=== PATIENT | male | born 1950 | race Caucasian/White ===

== ENCOUNTER 2017-09-07 06:41 | Inpatient (IN) | payer OTHER, MEDICARE ==
[~2017-09-07] VITALS: Ht 180.3 cm; Wt 87.7 kg
[~2017-09-07 06:41] MED LIST: ALLO100T PO; AMLO5TAB2 PO; ASPI81TA17 PO; COZA100T PO; LEVO50TA4 PO; METO1TAB42 PO
[2017-09-07] MEDS ORDERED: ACETAMINOPHEN 1000 MG/100 ML 0 ML IV ONE (07:10)
[2017-09-07] MEDS ORDERED: METRONIDAZOLE 500 MG/100 ML ISONTONIC SOLN IV ONE (07:15)
[2017-09-07] MEDS ORDERED: DEXT 5%-NACL 0.9% 1000 ML INJ 1,000 ML IV SCH (07:15)
[2017-09-07] MEDS ORDERED: CEFAZOLIN INJ 2,000 MG in SODIUM CHLORIDE 0.9% INJ 100 ML IV SCH (07:15)
[2017-09-07] MEDS ORDERED: POVIDONE IODINE 5% (ANTISEPSIS KIT) 4 APPLICATIONS EACH NARE PRN (07:30)
[2017-09-07] MEDS ORDERED: METOPROLOL TARTRATE 25 MG TAB PO PRN (07:30)
[2017-09-07] MEDS ORDERED: SODIUM CHLORID 0.9% 500 ML IV PRN (07:30)
[2017-09-07] MEDS ORDERED: LACTATED RINGER'S 1000 ML IV PRN (07:30)
[2017-09-07] MEDS ORDERED: CHLORHEXIDINE GLUCONATE 2 % 1 PACK (2 CLOTHS) TOPICAL PRN (07:30)
[2017-09-07] MEDS ORDERED: ACETAMINOPHEN 1000 MG/100 ML 100 ML IV ONE (08:30)
[2017-09-07] MEDS ORDERED: SUGAMMADEX SODIUM 200 MG/2 ML VIAL IV PUSH ONE (08:30)
[2017-09-07] MEDS ORDERED: FAMOTIDINE 20 MG/2 ML VIAL ONE (08:30)
[2017-09-07] MEDS ORDERED: ARTIFICIAL TEARS OPTH OINT 3.5 APPLIC/3.5 GM TUBO ONE (08:57)
--- NOTE | 2017-09-07 09:47 | PD.OP ---
Operative Report Date of Surgery: Sep 07, 2017 Preoperative Diagnosis: Colon cancer Postoperative Diagnosis: Same Procedure: Cystoscopy with bilateral ureteral catheter insertion Anesthesia: LASHA Surgeon: Marco Bowen Skin Pass Operator(s): None Resident Surgeon: None Operation and Findings: 67-year-old male with findings of colon cancer who elected to undergo robotic colectomy by Dr. Mcclellan. Request made for bilateral ureteral catheter insertion. Patient was brought to the operating room and placed in the dorsal lithotomy position. He received general endotracheal tube anesthesia and was prepped and draped in usual sterile fashion. Preprocedure antibiotics were also given. Weight 22 Azeri cystoscope was inserted in the bladder rodriguez cystoscopy did not reveal any abnormalities. The left ureteral orifice was identified and 500 and catheter was inserted into the left ureteral orifice without difficulty. This was again repeated on the right side without difficulty. The Canela was inserted and the catheters were attached to the Canela. He tolerated the procedure well. Marco Bowen DO Sep 07, 2017 09:47
[2017-09-07] MEDS ORDERED: NORMOSOL R INJ 1,000 ML IV ONE (12:00)
[2017-09-07] MEDS ORDERED: VECURONIUM BROMIDE 20 MG VIAL IV ONE (12:00)
[2017-09-07] MEDS ORDERED: ONDANSETRON HCL 4 MG/2 ML VIAL IV ONE (12:00)
[2017-09-07] MEDS ORDERED: PHENYLEPH/NS 1000 MCG/10 ML SYR IV ONE (12:00)
[2017-09-07] MEDS ORDERED: PROPOFOL 200 MG/20 ML AMP IV ONE (12:00)
[2017-09-07] MEDS ORDERED: ePHEDrine/NS 25 MG/5 ML SYRINGE IV ONE (12:00)
[2017-09-07] MEDS ORDERED: STERILE WATER FOR INJECTION 20 ML VIAL IV ONE (12:00)
[2017-09-07] MEDS ORDERED: hydrALAZINE HCL 20 MG/ML VIAL IV ONE (12:00)
[2017-09-07] MEDS ORDERED: DEXAMETHASONE SOD PHOS 4 MG/ML VIAL IV ONE (12:00)
[2017-09-07] MEDS ORDERED: ROCURONIUM INJ 50 MG/5 ML SYRINGE IV PUSH ONE (12:00)
[2017-09-07] MEDS ORDERED: PHENYLEPHRINE HCL 10 MG/ML VIAL IV ONE (12:00)
[2017-09-07] MEDS ORDERED: LIDOCAINE HCL 1% PF 5 ML SYRINGE OTHER ONE (12:00)
[2017-09-07] MEDS ORDERED: ceFAZolin INJ 1,000 MG VIAL IV ONE (12:00)
[2017-09-07] MEDS ORDERED: ceFAZolin INJ 1,000 MG VIAL IV PUSH ONE (13:12)
[2017-09-07] MEDS ORDERED: VECURONIUM BROMIDE 20 MG VIAL ONE (14:07)
[2017-09-07] MEDS ORDERED: HYDROmorphone HCL PF 2 MG/ML VIAL ONE (15:27)
[2017-09-07] MEDS ORDERED: diphenhydrAMINE HCL 50 MG/ML VIAL IV PUSH PRN (16:00)
[2017-09-07] MEDS ORDERED: NALOXONE HCL 0.4 MG/ML AMP IV PUSH PRN (16:00)
[2017-09-07] MEDS: KETOROLAC TROMETHAMINE 30 MG/ML (IVP) VIAL IVP SCH ×2 (16:00→21:50)
[2017-09-07] MEDS ORDERED: MORPHINE SULFATE 30 MG/30 ML PCA IV SCH (16:00)
[2017-09-07] MEDS ORDERED: ENALAPRILAT 2.5 MG/2 ML VIAL IV PUSH PRN (16:00)
[2017-09-07] MEDS ORDERED: BENZOCAINE 6 MG/MENTHOL 10 MG LOZENGE BUCCAL PRN (16:00)
[2017-09-07] MEDS ORDERED: Post-op Orders (for Pharmacy) XX ONE (16:00)
[2017-09-07] MEDS ORDERED: POTASSIUM CHLOR 40 MEQ PREMIX 100 ML IV-CENTRAL PRN (16:00)
[2017-09-07] MEDS ORDERED: POTASSIUM CHLOR 20 MEQ PREMIX 100 ML IV PRN (16:00)
[2017-09-07] MEDS: D5-NS + KCL 20 MEQ INJ 1,000 ML IV SCH (16:00)
[2017-09-07] MEDS ORDERED: ACETAMINOPHEN 325 MG TAB PO PRN (16:00)
[2017-09-07] MEDS ORDERED: ENALAPRILAT 1.25 MG/ML VIAL IV PUSH PRN (16:00)
[2017-09-07] MEDS ORDERED: MIDAZOLAM HCL 2 MG/2 ML VIAL ONE (16:07)
[2017-09-07] MEDS ORDERED: MORPHINE SULFATE 4 MG/ML INJ ONE (16:08)
[2017-09-07] MEDS ORDERED: DO NOT ADM ANY ANTICOAGULANT DRUGS PRN (16:45)
--- NOTE | 2017-09-07 16:53 | MP ---
cc: Ivory Mcclellan MD, Kashyap DATE OF OPERATION: 09/07/2017 PREOPERATIVE DIAGNOSIS: Transverse colon polyp. POSTOPERATIVE DIAGNOSIS: Transverse colon polyp. PROCEDURE PERFORMED: Exploratory laparoscopy with robotic takedown of splenic flexure, colonoscopy with tattooing and robotic ascending colectomy. SURGEON: Ivory Mcclellan MD DEDICATED DRIVER: Adolfo ANESTHESIA: General per ET tube. DESCRIPTION OF PROCEDURE: Patient was brought to the operating room and placed in the supine position. After induction of general anesthesia, the patient was placed in Reji stirrups and all bony prominences were carefully padded. Dr. Bowen came in and performed cystoscopy and placement of bilateral ureteral catheters. Please see his operative note for details. Due to not being 100% sure where in the transverse colon the polyp was located, I elected to initially place my camera port just to the right of the umbilicus. A 10/12 port was placed at this location, under direct vision using the laparoscope. CO2 insufflation was then undertaken, and a brief abdominal survey was undertaken. There was no visible tattooing in the transverse colon. I felt I got a fairly good look, although the patient had quite a bit of fat around the colon. As he had had problems with polyps in the splenic flexure previously, I thought possibly that the polyp would be found in the splenic flexure and elected to take down the splenic flexure, so I could look for tattooing around the fatty area in that area. The remainder of the ports were then placed as follows. A 10/12 port was placed just inside the right anterior superior iliac spine, an 8 da Cassie port was placed in the left anterior axillary line, on a line with the umbilicus, a #5 port was placed in the left midclavicular line, midway between the umbilicus and the symphysis pubis, and an 8 da Cassie was placed just to the right of the midline, in the suprapubic area. The patient was hydroplaned slightly head down and to the right. The omentum was brought up and over the anterior surface of the transverse colon. The robot was then docked. The omentum was then gently dissected free from the distal transverse colon, continued this up and around the splenic flexure, opening up the lesser sac. The descending colon was then retracted medially and laterally. Peritoneal attachments of the descending colon were dissected free up and around the splenic flexure as well as posterior until eventually, we had full mobility of the mid transverse colon to the mid descending colon. At this point, I got a good look at the bowel. I was able to move the fat off the bowel and still saw no sign of the tattooing. As I felt fairly certain that the polyp was in either the mid transverse or the splenic flexure, I elected to proceed with a small incision to see if I could palpate the polyp. An 8-10 cm incision was made transversely in the left upper abdomen and using electrocautery, dissection was carried down to the fascia of anterior abdominal wall. A few fibers of the rectus abdominis muscle were then split and the posterior fascia/peritoneum was then extended the length of the skin incision. The splenic flexure and distal transverse colon were then gently prolapsed out through the incision, but I again still could not feel any palpable polyp. With this, I elected to proceed with repeating a colonoscopy. The colonoscope was called into the room, which did entail a wait. Eventually, though, it was brought into the room and the colonoscope was introduced in the anus and advanced to the cecum without difficulty. The cecum was recognized by the triradial fold, the ileocecal valve and appendiceal orifice. The polyp was then clearly visualized just midway between the hepatic flexure and the middle colic vessels. The area was tattooed just so that we could be sure of our location. Colonoscope was then withdrawn, removing as much of the air as possible. At this point, the posterior fascia and anterior fascia at the incision was closed in a running fashion using #1 PDS. A moist sponge was placed into the wound and a Tegaderm was placed over the wound. Air was insufflated into the abdomen again and the laparoscope was placed in the field, and it was confirmed that indeed the polyp was midway between the hepatic flexure and the middle colic vessels. With this, we elected to re-dock the robot over the right shoulder. The remainder of the omentum was cleared from the proximal omentum and the proximal transverse colon was then dissected up and around the hepatic flexure. The ascending colon was then dissected free from the posterior peritoneum, freeing the duodenum from the undersurface of the mesentery. A site was then chosen for division of the transverse colon just to the right of the middle colic vessels. The mesentery at this level was divided using the Harmonic scalpel and the branches of the middle colic vessel to the hepatic flexure were then divided using the Harmonic scalpel as well. At this point, the appendix was noted to be retrocecal and somewhat attached to the posterior peritoneum. This was carefully dissected free using electrocautery. At this point, I felt I had adequate mobility and the robot was then undocked. The sutured incision was then opened, and the bowel was brought out through the incision. A blue load of the CHILO 90 was placed across the colon at this level. This was fired and removed. The ileocolic vessels were then dissected free circumferentially, doubly clamped proximally and singly clamped distally, divided and ligated using 0 Vicryl ties. A site was chosen for division of the ileum 10-12 cm proximal to the ileocecal valve. The mesentery at this level was serially divided and ligated using 0 Vicryl ties and a reload of the CHILO stapler was placed across the bowel at this level and fired. The specimen was then taken to a back table where it was later opened, and the polyp was confirmed. The antimesenteric corners of the staple line were then removed and the long limb of the on each limb of the bowel. This was closed on the antimesenteric border, fired and removed, thus creating the enteroenterostomy. The resulting enterotomy was closed transversely with a TX 60 stapling device. Two simple stay sutures were placed at the distal end of the anastomosis using 3-0 Vicryl. The anastomosis was palpated and found to be widely patent. It lay in a nice orientation. It was pink and healthy. It was reduced into the peritoneal cavity. The small bowel was then examined. There were some signs where the peritoneum kind of had some abrasions on the peritoneum. Bleeding was easily controlled with electrocautery, but some Surgicel powder was also dusted across these. All bowel was then returned to the peritoneal cavity where it lay in a nice orientation. The omentum was brought down to lie over the anterior surface of the abdominal wall and the peritoneal cavity was irrigated with warm normal saline until return of clear effluent. The posterior fascia and anterior fascia were again closed in a running fashion using #1 PDS. The wound was copiously irrigated with warm normal saline and the skin was closed in a running subcuticular fashion using 3-0 Vicryl. CO2 insufflation was again resumed, and the peritoneal cavity was examined with no sign of any significant bleeding noted. The trocars at the umbilical and the right lower quadrant port, the fascia was closed using the CrossBow device and #1 PDS. These were placed, but not secured until all the air was desufflated to the extent possible. The other remaining trocars were then opened widely. The air was desufflated to the extent possible. Trocars were removed. The fascial sutures were secured. The skin at the trocar sites were closed in interrupted subcuticular fashion using 3-0 Vicryl. Sterile dressings were then applied. Both ureteral stents were removed. All sponge, needle and instrument counts were correct, and the patient was returned to the postanesthesia care unit in a stable condition. MD IVETTE Gudino/GRAY , 04:07 PM , 04:52 PM JOSSELYN
[2017-09-07] MEDS: metroNIDAZOLE 500 MG INJ 100 ML IV SCH (16:55)
[2017-09-07 17:19] LABS: AUTOMATED NEUTROPHIL # 12.3 TH/MM3 (1.8-7.7); BASOPHIL % 0.1 % (0.0-2.0); HEMATOCRIT 42.6 % (39.0-51.0); HEMOGLOBIN 14.4 GM/DL (13.0-17.0); LYMPH % 6.5 % (9.0-44.0); LYMPHOCYTE # 0.9 TH/MM3 (1.0-4.8); MEAN CELL VOLUME 89.3 FL (80.0-100.0); MEAN CORPUSCULAR HEMOGLOBIN 30.3 PG (27.0-34.0); MEAN CORPUSCULAR HGB CONC 33.9 % (32.0-36.0); MEAN PLATELET VOLUME 8.2 FL (7.0-11.0); MONO % 8.4 % (0.0-8.0); MONOCYTE # 1.2 TH/MM3 (0-0.9); PLATELET COUNT 133 TH/MM3 (150-450); RED BLOOD COUNT 4.77 MIL/MM3 (4.50-5.90); RED CELL DISTRIBUTION WIDTH 14.1 % (11.6-17.2); WHITE BLOOD COUNT 14.4 TH/MM3 (4.0-11.0)
[2017-09-07 17:41] LABS: BICARBONATE 22.2 MEQ/L (21.0-32.0); CALCIUM 7.9 MG/DL (8.5-10.1); CREATININE 1.24 MG/DL (0.60-1.30)
[2017-09-07] MEDS: PCA - TOTAL MG MORPHINE DELIVERED PER SHIFT SCH ×2 (18:03→21:50)
[2017-09-07 18:31] VITALS: BP 127/60; PULSE 83; RESP 16; TEMP 97.7; O2SAT 96
[2017-09-07 20:00] VITALS: BP 139/65; PULSE 81; PULSE 82; RESP 18; TEMP 98.2; O2SAT 96
[2017-09-08] VITALS (25 sets, daily range): BP systolic 98–191; BP diastolic 53–85; PULSE 71–105; RESP 16–22; TEMP 97.9–98.6; O2SAT 92–98
[2017-09-08] MEDS: D5-NS + KCL 20 MEQ INJ 1,000 ML IV SCH ×4 (00:08→19:00)
[2017-09-08] MEDS: metroNIDAZOLE 500 MG INJ 100 ML IV SCH ×2 (00:09→08:23)
[2017-09-08] MEDS: ONDANSETRON HCL 4 MG/2 ML VIAL IV PUSH PRN (01:06)
[2017-09-08] MEDS: KETOROLAC TROMETHAMINE 30 MG/ML (IVP) VIAL IVP SCH ×4 (03:41→22:06)
[2017-09-08] MEDS: PCA - TOTAL MG MORPHINE DELIVERED PER SHIFT SCH ×3 (05:31→22:00)
[2017-09-08 05:37] LABS: AUTOMATED NEUTROPHIL # 8.7 TH/MM3 (1.8-7.7); BASOPHIL % 0.1 % (0.0-2.0); HEMATOCRIT 40.3 % (39.0-51.0); LYMPHOCYTE # 0.5 TH/MM3 (1.0-4.8); MEAN CELL VOLUME 88.6 FL (80.0-100.0); MEAN CORPUSCULAR HEMOGLOBIN 30.7 PG (27.0-34.0); MEAN CORPUSCULAR HGB CONC 34.7 % (32.0-36.0); MEAN PLATELET VOLUME 8.2 FL (7.0-11.0); MONO % 6.3 % (0.0-8.0); MONOCYTE # 0.6 TH/MM3 (0-0.9); NEUT % 88.6 % (16.0-70.0); PLATELET COUNT 121 TH/MM3 (150-450); RED BLOOD COUNT 4.54 MIL/MM3 (4.50-5.90); WHITE BLOOD COUNT 9.8 TH/MM3 (4.0-11.0)
[2017-09-08 05:59] LABS: BICARBONATE 24.6 MEQ/L (21.0-32.0); CALCIUM 7.7 MG/DL (8.5-10.1); CREATININE 1.15 MG/DL (0.60-1.30)
[2017-09-08] MEDS: LOSARTAN 50 MG TAB PO SCH (08:21)
[2017-09-08] MEDS: amLODIPine BESYLATE 5 MG TAB PO SCH (08:21)
[2017-09-08] MEDS: METOPROLOL SUCCINATE 25 MG EXTENDED RELEASE TAB PO SCH (08:21)
[2017-09-08] MEDS: PANTOPRAZOLE SODIUM 40 MG VIAL IVP SCH (08:22)
--- NOTE | 2017-09-08 13:14 | HHI.PR ---
Subjective Remarks POD#1 s/p robotic ascending colectomy reports mid back pain Objective Vital Signs Date Time Temp Pulse Resp B/P (MAP) Pulse Ox O2 Delivery O2 Flow Rate FiO2 09/08/17 11:15 98.2 90 18 150/69 (96) 93 09/08/17 11:01 90 09/08/17 10:01 86 09/08/17 09:00 100 09/08/17 08:59 93 21 09/08/17 08:01 18 09/08/17 08:01 98.0 105 18 191/84 (119) 92 09/08/17 08:01 92 Room Air 09/08/17 08:00 102 09/08/17 07:01 99 09/08/17 05:31 18 09/08/17 04:46 98 Nasal Cannula 2.00 09/08/17 04:00 97.9 85 18 152/85 (107) 95 09/08/17 04:00 71 09/08/17 00:00 84 09/08/17 00:00 98.6 86 16 148/65 (92) 94 09/07/17 21:50 20 09/07/17 20:00 81 09/07/17 20:00 18 09/07/17 20:00 98.2 82 18 139/65 (89) 96 09/07/17 20:00 Nasal Cannula 2.00 09/07/17 18:31 97.7 83 16 127/60 (82) 96 09/07/17 17:45 88 20 128/63 (84) 95 Nasal Cannula 2 09/07/17 17:00 88 20 138/67 (90) 95 Nasal Cannula 2 09/07/17 16:45 87 20 138/67 (90) 96 Nasal Cannula 2 09/07/17 16:40 12 09/07/17 16:30 88 20 145/67 (93) 99 Nasal Cannula 2 09/07/17 16:15 86 20 131/67 (88) 97 Nasal Cannula 2 09/07/17 15:58 98.0 85 20 127/64 (85) 99 Nasal Cannula 2 I/O 09/07/17 09/07/17 09/07/17 09/08/17 09/08/17 09/08/17 07:00 15:00 23:00 07:00 15:00 23:00 Intake Total 2300 ml 2502 ml 100 ml Output Total 690 ml 700 ml Balance 1610 ml 1802 ml 100 ml Intake Oral 480 ml IV Total 2300 ml 2022 ml 100 ml Output Urine Total 640 ml 700 ml Estimated Blood Loss 50 ml # Bowel Movements 0 Result Diagram: 09/08/17 0508 09/08/17 0508 Objective Remarks Abdomen soft, nondistended, tender Dressings c/d/i Back nontender Assessment and Plan Assessment and Plan Advance diet Decrease IVF Remove chamberlain later today Mobilize Ivory Mcclellan MD Sep 08, 2017 13:14
[2017-09-08] MEDS: ACETAMINOPHEN/HYDROcodone 325 MG/5 MG TAB PO PRN ×2 (13:33→19:44)
[2017-09-08] MEDS ORDERED: ACETAMINOPHEN 325 MG TAB PO PRN (14:30)
[2017-09-08] MEDS: HEPARIN SODIUM - SQ 10,000 UNITS/ML VIAL SQ SCH (16:13)
[2017-09-08] MEDS ORDERED: SIMETHICONE 80 MG CHEWABLE TAB PO PRN (21:45)
[2017-09-08] MEDS ORDERED: DIAZEPAM 5 MG TAB PO SCH (21:45)
[2017-09-08] MEDS: METOCLOPRAMIDE HCL 10 MG/2 ML VIAL IV SCH (22:06)
[2017-09-08] MEDS: HYDROmorphone HCL PF 2 MG/ML VIAL IV PRN (22:07)
[2017-09-08] MEDS ORDERED: DIAZEPAM 10 MG TAB PO ONE (23:00)
[2017-09-09] VITALS (27 sets, daily range): BP systolic 105–146; BP diastolic 56–65; PULSE 67–118; RESP 18–20; TEMP 97.8–98.4; O2SAT 93–98
[2017-09-09 03:27] LABS: AUTOMATED NEUTROPHIL # 7.4 TH/MM3 (1.8-7.7); BASOPHIL % 0.1 % (0.0-2.0); HEMATOCRIT 42.3 % (39.0-51.0); HEMOGLOBIN 14.4 GM/DL (13.0-17.0); LYMPH % 6.7 % (9.0-44.0); LYMPHOCYTE # 0.6 TH/MM3 (1.0-4.8); MEAN CELL VOLUME 90.2 FL (80.0-100.0); MEAN CORPUSCULAR HEMOGLOBIN 30.6 PG (27.0-34.0); MEAN PLATELET VOLUME 8.1 FL (7.0-11.0); MONO % 6.7 % (0.0-8.0); MONOCYTE # 0.6 TH/MM3 (0-0.9); NEUT % 86.5 % (16.0-70.0); PLATELET COUNT 130 TH/MM3 (150-450); RED BLOOD COUNT 4.68 MIL/MM3 (4.50-5.90); RED CELL DISTRIBUTION WIDTH 14.6 % (11.6-17.2); WHITE BLOOD COUNT 8.5 TH/MM3 (4.0-11.0)
[2017-09-09] MEDS: KETOROLAC TROMETHAMINE 30 MG/ML (IVP) VIAL IVP SCH ×4 (03:41→21:31)
[2017-09-09] MEDS: ACETAMINOPHEN/HYDROcodone 325 MG/5 MG TAB PO PRN ×3 (03:41→20:29)
[2017-09-09] MEDS: HEPARIN SODIUM - SQ 10,000 UNITS/ML VIAL SQ SCH ×2 (03:41→15:00)
[2017-09-09 03:53] LABS: BICARBONATE 23.6 MEQ/L (21.0-32.0); CALCIUM 7.7 MG/DL (8.5-10.1); CREATININE 1.9 MG/DL (0.60-1.30)
[2017-09-09 04:25] LABS: BANDS 41 % (0-6); LYMPHOCYTES 7 % (9-44); METAMYELOCYTES 1 % (0-1); MONOCYTES 3 % (0-8); NEUTROPHIL # MANUAL DIFF 7.7 TH/MM3 (1.8-7.7); POLYS (SEG NEUTROPHILS) 48 % (16-70)
[2017-09-09] MEDS: PCA - TOTAL MG MORPHINE DELIVERED PER SHIFT SCH ×3 (06:00→21:32)
[2017-09-09] MEDS: METOCLOPRAMIDE HCL 10 MG/2 ML VIAL IV SCH ×3 (06:00→21:32)
[2017-09-09] MEDS: D5-NS + KCL 20 MEQ INJ 1,000 ML IV SCH (08:46)
[2017-09-09] MEDS: PANTOPRAZOLE SODIUM 40 MG VIAL IVP SCH (08:46)
[2017-09-09] MEDS: amLODIPine BESYLATE 5 MG TAB PO SCH (08:46)
[2017-09-09] MEDS: METOPROLOL SUCCINATE 25 MG EXTENDED RELEASE TAB PO SCH (08:46)
[2017-09-09] MEDS: LOSARTAN 50 MG TAB PO SCH (08:46)
--- NOTE | 2017-09-09 13:19 | HHI.PR ---
Subjective Remarks POD#2 s/p robotic ascending colectomy back pain mostly gone with Valium/Dilaudid some mild nausea with PO Objective Vital Signs Date Time Temp Pulse Resp B/P (MAP) Pulse Ox O2 Delivery O2 Flow Rate FiO2 09/09/17 12:00 82 09/09/17 11:00 97.9 85 18 108/58 (75) 95 09/09/17 11:00 80 09/09/17 11:00 95 Room Air 09/09/17 10:00 69 09/09/17 09:17 94 21 09/09/17 09:00 90 09/09/17 08:00 85 09/09/17 07:00 70 09/09/17 07:00 97.8 88 18 146/65 (92) 98 09/09/17 07:00 98 Room Air 09/09/17 06:00 67 09/09/17 05:01 78 09/09/17 04:00 77 09/09/17 03:30 97 Room Air 09/09/17 03:30 98.2 90 18 108/59 (75) 97 09/09/17 03:00 83 09/09/17 02:00 79 09/09/17 01:00 76 09/09/17 00:00 76 09/08/17 23:20 98.0 73 18 98/53 (68) 92 09/08/17 23:00 71 09/08/17 22:00 82 09/08/17 22:00 93 Room Air 09/08/17 21:00 88 09/08/17 20:45 90 Nasal Cannula 2.00 09/08/17 20:45 98.3 97 22 142/77 (98) 93 09/08/17 20:00 96 09/08/17 19:00 100 09/08/17 17:08 95 Nasal Cannula 3.00 09/08/17 16:01 88 09/08/17 15:15 98.5 91 18 144/65 (91) 95 09/08/17 15:15 18 09/08/17 15:00 101 09/08/17 14:00 90 I/O 09/08/17 09/08/17 09/08/17 09/09/17 09/09/17 09/09/17 07:00 15:00 23:00 07:00 15:00 23:00 Intake Total 2502 ml 200 ml 1128 ml 480 ml Output Total 700 ml 700 ml Balance 1802 ml 200 ml 428 ml 480 ml Intake Oral 480 ml 1128 ml 480 ml IV Total 2022 ml 200 ml Output Urine Total 700 ml 700 ml # Voids 1 # Bowel Movements 0 Result Diagram: 09/09/179 09/09/17308 Objective Remarks Abdomen soft, distended tender wounds clean Assessment and Plan Assessment and Plan Replace chamberlain Increase IVF - Creatinine slightly increased Sips clears only KUB - will likely need NGT Ivory Mcclellan MD Sep 09, 2017 13:19
[2017-09-09] MEDS ORDERED: SODIUM CHLORID 0.9% 500 ML INJ 500 ML IV ONE (13:30)
[2017-09-09] MEDS ORDERED: BENZOCAINE 20% ORAL SPR 60 ML CAN OROPHARYNG PRN (13:45)
[2017-09-09] MEDS: DEXT 5%-NACL 0.9% 1000 ML INJ 1,000 ML IV SCH ×2 (13:53→23:46)
--- NOTE | 2017-09-09 14:31 | RADRPT ---
EXAM DATE/TIME: 09/09/2017 13:36 [facility] COMPARISON: No previous studies available for comparison. INDICATIONS : Abdominal distention and NG tube placement. MEDICAL HISTORY : None. SURGICAL HISTORY : Colon resection. ENCOUNTER: Initial ACUITY: 1 day PAIN SCORE: 2/10 LOCATION: Bilateral lower abdomen. FINDINGS: Nasogastric tube is in satisfactory position. Gas pattern is unremarkable without significant ileus. Bilateral pleural effusions are noted. CONCLUSION: 1. No evidence of significant ileus or mass effect. 2. Satisfactory position of nasogastric tube. 3. Bilateral pleural effusions. Yo Ruff MD on September 09, 2017 at 14:28 Board Certified Radiologist. This report was verified electronically.
[2017-09-09] MEDS: HYDROmorphone HCL PF 2 MG/ML VIAL IV PRN (23:36)
[2017-09-10] VITALS (27 sets, daily range): BP systolic 94–108; BP diastolic 50–59; PULSE 88–123; RESP 16–32; TEMP 96.6–99; O2SAT 93–96
[2017-09-10] MEDS: KETOROLAC TROMETHAMINE 30 MG/ML (IVP) VIAL IVP SCH ×2 (03:46→09:49)
[2017-09-10] MEDS: HEPARIN SODIUM - SQ 10,000 UNITS/ML VIAL SQ SCH ×2 (03:50→15:55)
[2017-09-10 04:39] LABS: AUTOMATED NEUTROPHIL # 7.8 TH/MM3 (1.8-7.7); BASOPHIL % 0.1 % (0.0-2.0); EOSINOPHIL % 0.1 % (0.0-4.0); HEMATOCRIT 41.8 % (39.0-51.0); HEMOGLOBIN 14.2 GM/DL (13.0-17.0); LYMPH % 6.1 % (9.0-44.0); LYMPHOCYTE # 0.6 TH/MM3 (1.0-4.8); MEAN CELL VOLUME 90.1 FL (80.0-100.0); MEAN CORPUSCULAR HEMOGLOBIN 30.7 PG (27.0-34.0); MEAN PLATELET VOLUME 8.7 FL (7.0-11.0); MONO % 8.2 % (0.0-8.0); MONOCYTE # 0.8 TH/MM3 (0-0.9); NEUT % 85.5 % (16.0-70.0); PLATELET COUNT 124 TH/MM3 (150-450); RED BLOOD COUNT 4.64 MIL/MM3 (4.50-5.90); RED CELL DISTRIBUTION WIDTH 14.9 % (11.6-17.2); WHITE BLOOD COUNT 9.1 TH/MM3 (4.0-11.0)
[2017-09-10 05:11] LABS: BICARBONATE 17.6 MEQ/L (21.0-32.0); CALCIUM 7.7 MG/DL (8.5-10.1); CREATININE 3.6 MG/DL (0.60-1.30)
[2017-09-10] MEDS: PCA - TOTAL MG MORPHINE DELIVERED PER SHIFT SCH ×3 (05:30→22:00)
[2017-09-10] MEDS: METOCLOPRAMIDE HCL 10 MG/2 ML VIAL IV SCH ×3 (05:30→23:31)
[2017-09-10 05:32] LABS: BANDS 28 % (0-6); LYMPHOCYTES 6 % (9-44); METAMYELOCYTES 13 % (0-1); MONOCYTES 6 % (0-8); POLYS (SEG NEUTROPHILS) 47 % (16-70)
[2017-09-10 05:35] LABS: BURR CELLS 1+ (NORMAL)
[2017-09-10 05:36] LABS: TOXIC VACUOLATION PRESENT (NONE SEEN)
[2017-09-10] MEDS ORDERED: SODIUM CHLOR 0.9% 1000 ML INJ 1,000 ML IV ONE ×2 (06:30→19:00)
[2017-09-10] MEDS: PANTOPRAZOLE SODIUM 40 MG VIAL IVP SCH (09:48)
[2017-09-10] MEDS: LOSARTAN 50 MG TAB PO SCH (09:50)
[2017-09-10] MEDS: METOPROLOL SUCCINATE 25 MG EXTENDED RELEASE TAB PO SCH (09:50)
[2017-09-10] MEDS: amLODIPine BESYLATE 5 MG TAB PO SCH (09:50)
[2017-09-10] MEDS ORDERED: SODIUM CHLOR 0.9% 1000 ML INJ 1,000 ML IV SCH (10:00)
--- NOTE | 2017-09-10 11:15 | RADRPT ---
EXAM DATE/TIME: 09/10/2017 10:17 [facility] COMPARISON: ABDOMEN KUB ONLY, September 09, 2017, 13:36. INDICATIONS : Evaluate for Ileus. MEDICAL HISTORY : Hypertension. SURGICAL HISTORY : Colon resection. ENCOUNTER: Subsequent ACUITY: 3 days PAIN SCORE: 8/10 LOCATION: Bilateral lower quadrant FINDINGS: Supine view of the abdomen was performed. Minimal air is identified in the nondistended colon. No pne umoperitoneum. Nasogastric tube projects over the left upper abdominal quadrant. Left basilar airspac e disease and possible associated effusion. CONCLUSION: 1. Nonspecific, nonobstructive bowel gas pattern with some air identified in the nondistended colon. No pneumoperitoneum. 2. Left basilar airspace disease with possible associated small effusion. Ernesto Huston MD on September 10, 2017 at 11:12 Board Certified Radiologist. This report was verified electronically.
--- NOTE | 2017-09-10 12:49 | HHI.PR ---
Subjective Remarks POD#3 s/p robotic ascending colectomy back pain gone tired Abdomen distended but not painful Objective Vital Signs Date Time Temp Pulse Resp B/P (MAP) Pulse Ox O2 Delivery O2 Flow Rate FiO2 09/10/17 11:00 111 09/10/17 10:00 118 09/10/17 09:23 96 21 09/10/17 09:00 106 09/10/17 08:00 108 09/10/17 08:00 96 Room Air 09/10/17 08:00 97.7 112 18 99/57 (71) 96 09/10/17 07:00 104 09/10/17 06:00 94 09/10/17 05:30 18 09/10/17 05:00 100 09/10/17 04:46 16 09/10/17 04:00 97 09/10/17 04:00 18 09/10/17 03:57 93 Room Air 09/10/17 03:51 96.6 93 18 94/50 (65) 93 09/10/17 03:00 98 09/10/17 02:00 90 09/10/17 01:00 88 09/10/17 00:00 89 09/10/17 00:00 98.6 92 18 94/51 (65) 94 09/10/17 00:00 94 Room Air 09/09/17 23:00 88 09/09/17 22:00 18 09/09/17 22:00 94 09/09/17 21:32 20 09/09/17 21:00 118 09/09/17 20:46 94 21 09/09/17 20:00 96 09/09/17 20:00 93 Room Air 09/09/17 20:00 98.4 110 20 105/58 (74) 93 09/09/17 19:00 94 09/09/17 18:00 82 09/09/17 17:00 86 09/09/17 16:06 85 09/09/17 15:00 97.8 92 18 120/56 (77) 94 09/09/17 15:00 96 09/09/17 15:00 94 Room Air 09/09/17 14:00 86 09/09/17 14:00 18 09/09/17 14:00 18 09/09/17 13:00 91 I/O 4/1/09/09/17 09/09/17 09/10/17 09/10/17 09/10/17 07:00 15:00 23:00 07:00 15:00 23:00 Intake Total 480 ml 500 ml 480 ml 480 ml Output Total 500 ml 625 ml Balance 480 ml 500 ml -20 ml -145 ml Intake Oral 480 ml 480 ml 480 ml IV Total 500 ml Output Urine Total 250 ml 75 ml Gastric Drainage Total 250 ml 550 ml # Voids 1 # Bowel Movements 0 0 Result Diagram: 09/10/17 0415 09/10/17 0415 Objective Remarks Abdomen soft, very distended, mildly tender wounds clean Assessment and Plan Assessment and Plan Continued ileus KUB with scant air in colon NGT 800 cc encouraged ambulation ARF most likely secondary to dehydration Continue rehydration Possibly lasix Await Nephrology Ivory Mcclellan MD Sep 10, 2017 12:49
[2017-09-10] MEDS ORDERED: MORPHINE SULFATE 30 MG/30 ML PCA IV SCH (15:00)
[2017-09-10] MEDS ORDERED: ACETAMINOPHEN/HYDROcodone 325 MG/5 MG TAB PO PRN ×2 (15:00)
--- NOTE | 2017-09-10 16:24 | RADRPT ---
EXAM DATE/TIME: 09/10/2017 15:17 [facility] COMPARISON: No previous studies available for comparison. INDICATIONS : Increased BUN/creatinine. MEDICAL HISTORY : Myocardial infarction. Hypercholesterolemia. Thyroid disease. Tinnitus. HTN. Midly enlarged prostat e. Gout. SURGICAL HISTORY : Coronary artery stent. Cardiac cath. ENCOUNTER: Initial ACUITY: 1 day PAIN SCORE: 0/10 LOCATION: Bilateral flank MEASUREMENTS: RIGHT KIDNEY: 10.9 x 6.1 x 6.1 cm LEFT KIDNEY: 12.2 x 5.5 x 5.9 cm FINDINGS: RIGHT KIDNEY: Renal cortex is normal in thickness and echotexture. No hydronephrosis, stone, or mass. There is a dominant exophytic simple cyst off the upper pole measuring 8.6 x 7.8 cm. LEFT KIDNEY: Renal cortex is normal in thickness and echotexture. No hydronephrosis, stone, or mass. BLADDER: Nondistended. A CONCLUSION: No evidence of mass or hydronephrosis. Andrés Gardner MD on September 10, 2017 at 16:21 Board Certified Radiologist. This report was verified electronically.
--- NOTE | 2017-09-10 16:53 | PD.CONS ---
HPI Service Nephrology Consult Requested By Reason for Consult Acute Renal Failure Primary Care Physician Brian Brown M.D. History of Present Illness This is a very pleasant 67 y/o male. He came in for same day surgery for polyp removal. However there were complications in the OR, and he required a colonoscopy during the surgery. He also required bilateral ureteral catheter placement by urology. Postoperatively he was given Toradol, received 12 doses. He is now on IVF, urine output is very low and he has cola colored urine. Not in distress, we were consulted to assist with management. He is a full code. (Helena Malave) Review of Systems Constitutional: COMPLAINS OF: Fatigue, DENIES: Weight gain, Change in appetite Musculoskeletal: COMPLAINS OF: Muscle aches, Back pain (Helena Malave ) Past Family Social History Allergies: Coded Allergies: No Known Allergies (Unverified Allergy, Unknown, 09/07/17) Past Medical History HTN Gout Arthritis CAD Arthrosclerotic heart disease Past Surgical History PCI colonoscopy Reported Medications Unable to obtain Active Ordered Medications Current Medications Medications (Trade) Dose Ordered Sig/Emilee Route Start Time Stop Time Status Last Admin (Tylenol) 650 mg Q4H PRN PO 09/07/17 16:00 09/08/17 11:06 (Protonix Inj) 40 mg DAILY IVP 09/08/17 09:00 09/10/17 09:48 (Zofran Inj) 4 mg Q6H PRN IV PUSH 09/07/17 16:00 09/08/17 01:06 (Vasotec Inj) 1.25 mg Q4H PRN IV PUSH 09/07/17 16:00 (Vasotec Inj) 2.5 mg Q6H PRN IV PUSH 09/07/17 16:00 (Chloraseptic Wilmer) 1 lozenge UNSCH PRN BUCCAL 09/07/17 16:00 Potassium Chloride 100 ml @ 50 mls/hr UNSCH PRN IV 09/07/17 16:00 Potassium Chloride 100 ml @ 25 mls/hr UNSCH PRN IV-CENTRAL 09/07/17 16:00 (Heparin Inj) 5,000 units Q12H SQ 09/08/17 15:00 09/10/17 15:55 (Narcan Inj) 0.4 mg UNSCH PRN IV PUSH 09/07/17 16:00 (Benadryl Inj) 25 mg Q6H PRN IV PUSH 09/07/17 16:00 RUBBER OFF Dosage Infused (Pha) 1 Q8HR .XX 09/07/17 16:00 09/10/17 14:16 (Norvasc) 5 mg DAILY PO 09/08/17 09:00 09/10/17 09:50 (Toprol Xl) 25 mg DAILY PO 09/08/17 09:00 09/10/17 09:50 (Tylenol) 650 mg Q4H PRN PO 09/08/17 14:30 (Dilaudid Pf Inj) 0.2 mg Q3H PRN IV 09/08/17 21:45 09/09/17 23:36 (Mylicon Chew) 80 mg Q6H PRN PO 09/08/17 21:45 09/09/17 12:07 (Hurricaine 20% Oral Spr) 1 spray Q6H PRN OROPHARYNG 09/09/17 13:45 09/09/17 21:23 Sodium Chloride 1,000 ml @ 175 mls/hr Q5H43M IV 09/10/17 10:00 09/10/17 11:20 ([place] 5-325 Mg) 1 tab Q6H PRN PO 09/10/17 15:00 09/10/17 15:54 ([place] 5-325 Mg) 2 tab Q6H PRN PO 09/10/17 15:00 (Morphine 1 Mg/ ml RUBBER OFF) 30 mg UNSCH IV 09/10/17 15:00 (Reglan Inj) 10 mg Q8H IV 09/10/17 15:00 09/10/17 15:54 Family History Non contributory Social History Non smoker Full code (Helena Malave) Physical Exam Vital Signs Vital Signs Date Time Temp Pulse Resp B/P (MAP) Pulse Ox O2 Delivery O2 Flow Rate FiO2 09/10/17 16:00 115 09/10/17 15:00 120 09/10/17 15:00 98.2 120 32 108/59 (75) 95 09/10/17 15:00 95 Room Air 09/10/17 14:16 14 09/10/17 14:00 16 09/10/17 14:00 121 09/10/17 13:00 122 09/10/17 12:00 121 09/10/17 11:00 111 09/10/17 11:00 94 Room Air 09/10/17 11:00 98.0 113 16 106/58 (74) 94 09/10/17 10:00 118 09/10/17 09:23 96 21 09/10/17 09:00 106 09/10/17 08:00 108 09/10/17 08:00 96 Room Air 09/10/17 08:00 97.7 112 18 99/57 (71) 96 09/10/17 07:00 104 09/10/17 06:00 94 09/10/17 05:30 18 09/10/17 05:00 100 09/10/17 04:46 16 09/10/17 04:00 97 09/10/17 04:00 18 09/10/17 03:57 93 Room Air 09/10/17 03:51 96.6 93 18 94/50 (65) 93 09/10/17 03:00 98 09/10/17 02:00 90 09/10/17 01:00 88 09/10/17 00:00 89 09/10/17 00:00 98.6 92 18 94/51 (65) 94 09/10/17 00:00 94 Room Air 09/09/17 23:00 88 09/09/17 22:00 18 09/09/17 22:00 94 09/09/17 21:32 20 09/09/17 21:00 118 09/09/17 20:46 94 21 09/09/17 20:00 96 09/09/17 20:00 93 Room Air 09/09/17 20:00 98.4 110 20 105/58 (74) 93 09/09/17 19:00 94 09/09/17 18:00 82 09/09/17 17:00 86 Physical Exam Young appearing elderly male Awake, not in distress NG tube on left Abd round, non tender Ext no edema Canela with dark brown/cola colored urine. Laboratory Laboratory Tests Test 09/10/17 04:15 White Blood Count 9.1 Red Blood Count 4.64 Hemoglobin 14.2 Hematocrit 41.8 Mean Corpuscular Volume 90.1 Mean Corpuscular Hemoglobin 30.7 Mean Corpuscular Hemoglobin Concent 34.0 Red Cell Distribution Width 14.9 Platelet Count 124 Mean Platelet Volume 8.7 Neutrophils (%) (Auto) 85.5 Lymphocytes (%) (Auto) 6.1 Monocytes (%) (Auto) 8.2 Eosinophils (%) (Auto) 0.1 Basophils (%) (Auto) 0.1 Neutrophils # (Auto) 7.8 Lymphocytes # (Auto) 0.6 Monocytes # (Auto) 0.8 Eosinophils # (Auto) 0.0 Basophils # (Auto) 0.0 CBC Comment AUTO DIFF Differential Total Cells Counted 100 Neutrophils % (Manual) 47 Band Neutrophils % 28 Lymphocytes % 6 Monocytes % 6 Neutrophils # (Manual) 8.0 Metamyelocytes 13 Differential Comment AUTO DIFF CONFIRMED Toxic Vacuolation PRESENT Platelet Estimate LOW Platelet Morphology Comment NORMAL Oliva Cells 1+ Blood Urea Nitrogen 38 Creatinine 3.60 Random Glucose 124 Calcium Level 7.7 Sodium Level 137 Potassium Level 4.8 Chloride Level 110 Carbon Dioxide Level 17.6 Anion Gap 9 Estimat Glomerular Filtration Rate 17 (Helena Malave) Result Diagram: 09/10/17 0415 09/10/17 0415 Imaging Last Impressions Renal Ultrasound 09/10/17 0000 Signed Impressions: Service Date/Time: Sunday, September 10, 2017 15:17 - CONCLUSION: No evidence of mass or hydronephrosis. Andrés Gardner MD Abdomen X-Ray 09/10/17 0000 Signed Impressions: Service Date/Time: Sunday, September 10, 2017 10:17 - CONCLUSION: 1. Nonspecific, nonobstructive bowel gas pattern with some air identified in the nondistended colon. No pneumoperitoneum. 2. Left basilar airspace disease with possible associated small effusion. Ernesto Huston MD (Helena Malave) Assessment and Plan Problem List: (1) JOSEF (acute kidney injury) ICD Codes: N17.9 - Acute kidney failure, unspecified Plan: His renal function is normal at baseline JOSEF most likely due to NSAID use; however now he has become anuric, suffered ATN Minimal urine output Renal US is negative He has metabolic acidosis. Change IVF to 1/2 NS with 75 bicarb @ 75 cc/hr Repeat labs in AM Hold losartan, stop Toradol, stop enalapril (PRN) Obtain UA for analysis He may require dialysis in the next few days if he continues to decline. (2) S/P partial colectomy ICD Codes: Z90.49 - Acquired absence of other specified parts of digestive tract Plan: Management per surgery (Helena Malave) Assessment and Plan patient was seen and examined. Oliguric. Likely has ATN. Avoid nephrotoxic agents. Nephrotoxic agents stopped(Toradol). Also stopped Losartan. Monitor urine output. Bicarbonate drip. May need renal replacement therapy. (Nish Zhu MD) Helena Malave Sep 10, 2017 16:53 Nish Zhu MD Sep 11, 2017 10:22
[2017-09-10] MEDS ORDERED: FUROSEMIDE 20 MG/2 ML VIAL IV PUSH ONE (19:00)
[2017-09-10] MEDS: SODIUM BICARBONATE 8.4% INJ 75 MEQ in SODIUM CHLOR 0.45% 1000 ML INJ 1,000 ML IV SCH (19:07)
[2017-09-10] MEDS: HYDROmorphone HCL PF 2 MG/ML VIAL IV PRN ×2 (19:46→23:32)
[2017-09-10] MEDS ORDERED: diphenhydrAMINE HCL 50 MG/ML VIAL IV PUSH PRN (20:15)
[2017-09-10 23:43] LABS: BICARBONATE 17.6 MEQ/L (21.0-32.0); CALCIUM 7.6 MG/DL (8.5-10.1); CREATININE 5.09 MG/DL (0.60-1.30)
[2017-09-11] VITALS (21 sets, daily range): BP systolic 86–115; BP diastolic 49–76; PULSE 75–190; RESP 16–22; TEMP 98.2–99.3; O2SAT 90–100
[2017-09-11] MEDS: HEPARIN SODIUM - SQ 10,000 UNITS/ML VIAL SQ SCH ×2 (03:00→15:00)
--- NOTE | 2017-09-11 03:50 | RADRPT ---
EXAM DATE/TIME: 09/11/2017 02:33 [facility] COMPARISON: ABDOMEN KUB ONLY, September 09, 2017, 13:36. CHEST SINGLE AP, November 23, 2014, 15:39. ABDOMEN KUB ONLY, A pril 2017, 10:17. INDICATIONS : Short of breath. MEDICAL HISTORY : Hypertension. SURGICAL HISTORY : Colon resection. ENCOUNTER: Subsequent ACUITY: 1 week PAIN SCORE: 0/10 LOCATION: Bilateral chest FINDINGS: There is elevation of the diaphragms, right worse than left with pneumoperitoneum which is new or inc reased from recent prior exams. A nasogastric tube descends to the stomach. There are is basilar atel ectasis a laterally and likely small left effusion. Cardiac contours are grossly stable. CONCLUSION: Pneumoperitoneum which is new. Michele Coleman MD on September 11, 2017 at 3:39 Board Certified Radiologist. This report was verified electronically.
[2017-09-11] MEDS ORDERED: SODIUM BICARBONATE 8.4% INJ 50 MEQ/50 ML SYR IV PUSH ONE ×2 (04:45→17:30)
[2017-09-11] MEDS ORDERED: NOREPINEPHRINE 4 MG/4 ML AMP IV ONE (05:00)
[2017-09-11] MEDS ORDERED: AMIODARONE HCL 150 MG/3 ML VIAL IV ONE (05:00)
[2017-09-11] MEDS ORDERED: NALOXONE HCL 4 MG/10 ML MDV IV ONE (05:00)
[2017-09-11] MEDS ORDERED: SODIUM BICARBONATE 8.4% INJ 50 MEQ/50 ML SYR IV ONE (05:00)
[2017-09-11] MEDS ORDERED: fentaNYL CITRATE 250 MCG/5 ML AMP ONE (05:13)
[2017-09-11] MEDS ORDERED: DILTIAZEM HCL 25 MG/5 ML VIAL ONE ×2 (05:15→07:39)
[2017-09-11] MEDS ORDERED: METOPROLOL TARTRATE 5 MG/5 ML VIAL ONE (05:26)
[2017-09-11] MEDS: SODIUM BICARBONATE 8.4% INJ 75 MEQ in SODIUM CHLOR 0.45% 1000 ML INJ 1,000 ML IV SCH (05:30)
[2017-09-11] MEDS ORDERED: RESP: LEVALBUTEROL HYDROCHLORIDE 1.25 MG/3 ML NEB (SCH) NEB ONE (05:30)
[2017-09-11] MEDS ORDERED: DILTIAZEM HCL 25 MG/5 ML VIAL IV ONE ×2 (05:30)
--- NOTE | 2017-09-11 05:35 | HHI.PR ---
Subjective Remarks POD# s/p robotic ascending colectomy Condition worsened, with decreased oxygenation CXR with new or increased free air Objective Vital Signs Date Time Temp Pulse Resp B/P (MAP) Pulse Ox O2 Delivery O2 Flow Rate FiO2 09/11/17 03:38 97 Simple Mask 8.00 09/11/17 02:00 92 Nasal Cannula 6.00 09/11/17 02:00 124 09/11/17 01:00 114 09/11/17 00:30 98.5 115 20 98/57 (71) 93 09/11/17 00:30 93 Nasal Cannula 4.00 09/11/17 00:00 118 09/10/17 23:45 Nasal Cannula 4.00 09/10/17 23:00 114 09/10/17 22:00 108 09/10/17 21:00 106 09/10/17 20:00 110 09/10/17 19:30 96 Room Air 09/10/17 19:30 99.0 123 24 102/57 (72) 96 09/10/17 19:00 123 09/10/17 18:00 122 09/10/17 17:00 120 09/10/17 16:00 115 09/10/17 15:00 120 09/10/17 15:00 98.2 120 32 108/59 (75) 95 09/10/17 15:00 95 Room Air 09/10/17 14:16 14 09/10/17 14:00 16 09/10/17 14:00 121 09/10/17 13:00 122 09/10/17 12:00 121 09/10/17 11:00 111 09/10/17 11:00 94 Room Air 09/10/17 11:00 98.0 113 16 106/58 (74) 94 09/10/17 10:00 118 09/10/17 09:23 96 21 09/10/17 09:00 106 09/10/17 08:00 108 09/10/17 08:00 96 Room Air 09/10/17 08:00 97.7 112 18 99/57 (71) 96 09/10/17 07:00 104 09/10/17 06:00 94 I/O 09/10/17 09/10/17 09/10/17 09/11/17 09/11/17 09/11/17 07:00 15:00 23:00 07:00 15:00 23:00 Intake Total 480 ml 480 ml Output Total 625 ml 800 ml Balance -145 ml -320 ml Intake Oral 480 ml 480 ml Output Urine Total 75 ml 100 ml Gastric Drainage Total 550 ml 700 ml # Bowel Movements 0 Result Diagram: 09/10/17 0415 09/10/17 2250 Objective Remarks Appears slightly short of breath Abdomen soft, very distended, mildly tender wounds clean Assessment and Plan Assessment and Plan To OR for exploration Discussed with patient and suspicion of leak, either at anastomosis or otherwise Exploration with possible bowel resection, and/or stoma Ivory Mcclellan MD Sep 11, 2017 05:35
--- NOTE | 2017-09-11 05:38 | PD.CONS ---
[facility] Service Critical Care Medicine Consult Requested By Primary Care Physician Brian Brown M.D. History of Present Illness POD#3 s/p 67-year-old very pleasant gentleman initially admitted for same day surgery for polyp removal. Due to some complications in the OR he required a colonoscopy during the surgery and now he is postop day 4 status post robotic ascending colectomy. He also required bilateral ureteral catheter placement by urology. Postoperatively he was given Toradol, received 12 doses. He is now on IVF, urine output is very low and he has cola colored urine. He continues to be profoundly acidotic and the x-ray today shows pneumoperitoneum that is new compared to previous images. The patient's surgeon Dr. Mcclellan is at the bedside and she is taking him immediately to operating room for a revision. The patient during my exam is not in distress. Review of Systems Constitutional: DENIES: Diaphoretic episodes, Fatigue, Fever, Weight gain, Weight loss, Chills, Dizziness, Change in appetite, Night Sweats Endocrine: DENIES: Heat/cold intolerance, Polydipsia, Polyuria, Polyphagia Eyes: DENIES: Blurred vision, Diplopia, Eye inflammation, Eye pain, Vision loss , Photosensitivity, Double Vision Ears, nose, mouth, throat: DENIES: Tinnitus, Hearing loss, Vertigo, Nasal discharge, Oral lesions, Throat pain, Hoarseness, Ear Pain, Running Nose, Epistaxis, Sinus Pain, Toothache, Odynophagia Respiratory: DENIES: Apneas, Cough, Snoring, Wheezing, Hemoptysis, Sputum production, Shortness of breath Cardiovascular: DENIES: Chest pain, Palpitations, Syncope, Dyspnea on Exertion , PND, Lower Extremity Edema, Orthopnea, Claudication Gastrointestinal: COMPLAINS OF: Abdominal pain, Constipation, Nausea, DENIES: Black stools, Bloody stools, Diarrhea, Vomiting, Difficulty Swallowing, Anorexia Genitourinary: DENIES: Sexual dysfunction, Urinary frequency, Urinary incontinence, Urgency, Hematuria, Dysuria, Nocturia, Penile Discharge, Testicular Pain, Testicular Swelling Musculoskeletal: DENIES: Joint pain, Muscle aches, Stiffness, Joint Swelling, Back pain, Neck pain Integumentary: DENIES: Abnormal pigmentation, Nail changes, Pruritus, Rash Hematologic/lymphatic: DENIES: Bruising, Lymphadenopathy Immunologic/allergic: DENIES: Eczema, Urticaria Neurologic: DENIES: Abnormal gait, Headache, Localized weakness, Paresthesias, Seizures, Speech Problems, Tremor, Poor Balance Psychiatric: DENIES: Anxiety, Confusion, Mood changes, Depression, Hallucinations, Agitation, Suicidal Ideation, Homicidal Ideation, Delusions Past Family Social History Allergies: Coded Allergies: No Known Allergies (Unverified Allergy, Unknown, 09/07/17) Past Medical History HTN Gout Arthritis CAD Arthrosclerotic heart disease Past Surgical History PCI colonoscopy Reported Medications Reported Meds & Active Scripts Active Reported Metoprolol Succinate ER 24 HR (Metoprolol Succinate) 25 Mg Tab 25 Mg PO DAILY Cozaar (Losartan Potassium) 100 Mg Tab 100 Mg PO DAILY Levothyroxine (Levothyroxine Sodium) 50 Mcg Tab 50 Mcg PO DAILY Aspirin DR (Aspirin) 81 Mg Tabdr 81 Mg PO DAILY Amlodipine (Amlodipine Besylate) 5 Mg Tab 5 Mg PO DAILY Allopurinol 100 Mg Tab 100 Mg PO DAILY Active Ordered Medications Current Medications Medications (Trade) Dose Ordered Sig/Emilee Route PRN Reason Start Time Stop Time Status Last Admin Dose Admin Acetaminophen (Tylenol) 650 mg Q4H PRN PO Temperature > 101F 09/07/17 16:00 09/08/17 11:06 Pantoprazole Sodium (Protonix Inj) 40 mg DAILY IVP 09/08/17 09:00 09/10/17 09:48 Ondansetron HCl (Zofran Inj) 4 mg Q6H PRN IV PUSH NAUSEA 09/07/17 16:00 09/08/17 01:06 Enalaprilat (Vasotec Inj) 1.25 mg Q4H PRN IV PUSH SYS BP GREATER THAN 160 MMHG 09/07/17 16:00 Future Hold Enalaprilat (Vasotec Inj) 2.5 mg Q6H PRN IV PUSH SYS BP GREATER THAN 160 MMHG 09/07/17 16:00 Future Hold Benzocaine/Menthol (Chloraseptic Wilmer) 1 lozenge UNSCH PRN BUCCAL SORE THROAT 09/07/17 16:00 Potassium Chloride 100 ml @ 50 mls/hr UNSCH PRN IV POTASSIUM 3 TO 3.5 09/07/17 16:00 Potassium Chloride 100 ml @ 25 mls/hr UNSCH PRN IV-CENTRAL POTASSIUM LESS THAN 3 09/07/17 16:00 Heparin Sodium (Porcine) (Heparin Inj) 5,000 units Q12H SQ 09/08/17 15:00 09/10/17 15:55 Naloxone HCl (Narcan Inj) 0.4 mg UNSCH PRN IV PUSH RESPIRATORY RATE LESS THAN 10 09/07/17 16:00 Diphenhydramine HCl (Benadryl Inj) 25 mg Q6H PRN IV PUSH ITCHING 09/07/17 16:00 SUBSTATION MANAGER Dosage Infused (Pha) 1 Q8HR .XX 09/07/17 16:00 09/10/17 14:16 Amlodipine Besylate (Norvasc) 5 mg DAILY PO 09/08/17 09:00 09/10/17 09:50 Metoprolol Succinate (Toprol Xl) 25 mg DAILY PO 09/08/17 09:00 09/10/17 09:50 Acetaminophen (Tylenol) 650 mg Q4H PRN PO HEADACHE 09/08/17 14:30 Hydromorphone HCl (Dilaudid Pf Inj) 0.2 mg Q3H PRN IV PAIN 1-10 09/08/17 21:45 09/10/17 23:32 Simethicone (Mylicon Chew) 80 mg Q6H PRN PO GAS RETENTION 09/08/17 21:45 09/09/17 12:07 Benzocaine (Hurricaine 20% Oral Spr) 1 spray Q6H PRN OROPHARYNG throat pain 09/09/17 13:45 09/09/17 21:23 Acetaminophen/ Hydrocodone Bitart ([place] 5-325 Mg) 1 tab Q6H PRN PO PAIN SCALE 1 TO 4 09/10/17 15:00 09/10/17 15:54 Acetaminophen/ Hydrocodone Bitart ([place] 5-325 Mg) 2 tab Q6H PRN PO PAIN SCALE 5 TO 10 09/10/17 15:00 09/10/17 22:13 Sodium Bicarbonate 75 meq/Sodium Chloride 1,075 ml @ 125 mls/hr Q8H36M IV 09/10/17 18:00 09/10/17 19:07 Diphenhydramine HCl (Benadryl Inj) 25 mg HS PRN IV PUSH SLEEP 09/10/17 20:15 Family History No family history significant of colorectal cancer Social History Denies tobacco, alcohol, or illicit drug abuse Physical Exam Vital Signs Vital Signs Date Time Temp Pulse Resp B/P (MAP) Pulse Ox O2 Delivery O2 Flow Rate FiO2 09/11/17 03:38 97 Simple Mask 8.00 09/11/17 02:00 92 Nasal Cannula 6.00 09/11/17 02:00 124 09/11/17 01:00 114 09/11/17 00:30 98.5 115 20 98/57 (71) 93 09/11/17 00:30 93 Nasal Cannula 4.00 09/11/17 00:00 118 09/10/17 23:45 Nasal Cannula 4.00 09/10/17 23:00 114 09/10/17 22:00 108 09/10/17 21:00 106 09/10/17 20:00 110 09/10/17 19:30 96 Room Air 09/10/17 19:30 99.0 123 24 102/57 (72) 96 09/10/17 19:00 123 09/10/17 18:00 122 09/10/17 17:00 120 09/10/17 16:00 115 09/10/17 15:00 120 09/10/17 15:00 98.2 120 32 108/59 (75) 95 09/10/17 15:00 95 Room Air 09/10/17 14:16 14 09/10/17 14:00 16 09/10/17 14:00 121 09/10/17 13:00 122 09/10/17 12:00 121 09/10/17 11:00 111 09/10/17 11:00 94 Room Air 09/10/17 11:00 98.0 113 16 106/58 (74) 94 09/10/17 10:00 118 09/10/17 09:23 96 21 09/10/17 09:00 106 09/10/17 08:00 108 09/10/17 08:00 96 Room Air 09/10/17 08:00 97.7 112 18 99/57 (71) 96 09/10/17 07:00 104 09/10/17 06:00 94 09/10/17 05:30 18 Physical Exam GENERAL: Well-nourished, well-developed patient. SKIN: Warm and dry. HEAD: Normocephalic. EYES: No scleral icterus. No injection or drainage. NECK: Supple, trachea midline. No JVD or lymphadenopathy. CARDIOVASCULAR: Regular rate and rhythm without murmurs, gallops, or rubs. RESPIRATORY: Breath sounds equal bilaterally. No accessory muscle use. GASTROINTESTINAL: Abdomen soft, non-tender, very distended. MUSCULOSKELETAL: No cyanosis, or edema. BACK: Nontender without obvious deformity. NEURO EXAM: GCS: 15 Mental Status: The patient is alert and oriented to person, place, and time with normal speech. Laboratory Laboratory Tests Test 09/10/17 22:50 09/11/17 02:24 Blood Urea Nitrogen 51 Creatinine 5.09 Random Glucose 105 Calcium Level 7.6 Sodium Level 138 Potassium Level 4.9 Chloride Level 109 Carbon Dioxide Level 17.6 Anion Gap 11 Estimat Glomerular Filtration Rate 11 Blood Gas Puncture Site RT RADIAL Blood Gas Patient Temperature 98.6 Blood Gas HCO3 15 Blood Gas Base Excess -9.9 Blood Gas Oxygen Saturation 90 Arterial Blood pH 7.33 Arterial Blood Partial Pressure CO2 29 Arterial Blood Partial Pressure O2 69 Arterial Blood Oxygen Content 16.7 Arterial Blood Carboxyhemoglobin 1.3 Arterial Blood Methemoglobin 1.4 Blood Gas Hemoglobin 13.2 Oxygen Delivery Device NASAL CANNULA Blood Gas Liter Flow 4 Result Diagram: 09/10/17 0415 09/10/17 2250 Imaging Last 24 hours Impressions Chest X-Ray 09/11/17 0000 Signed Impressions: Service Date/Time: Monday, September 11, 2017 02:33 - CONCLUSION: Pneumoperitoneum which is new. Michele Coleman MD Assessment and Plan Assessment and Plan Pneumoperitoneum -Status post ascending colectomy -Start OR for revision to rule out a leak -Flagyl, cefazolin changed to Zosyn -Management per Dr. Mcclellan general surgery Metabolic acidosis -Due to above -Also acute kidney injury -Sodium bicarbonate replacement -IV fluid resuscitation Acute kidney failure -Recent dehydration -IV fluid resuscitation -Sodium bicarbonate drip -I's and O -Management per nephrology Hypertension -Metoprolol -Norvasc DVT GI prophylaxis -Luis M's and SCDs -Subcu heparin -Pepcid Critical Care: The total critical care time was 35 minutes. Time to perform other separately billable procedures was not included in the critical care time. Vishnu Whitehead MD Sep 11, 2017 5:38 am
[2017-09-11] MEDS ORDERED: METOPROLOL TARTRATE 5 MG/5 ML VIAL IV ONE ×2 (05:45)
[2017-09-11] MEDS ORDERED: metroNIDAZOLE 500 MG INJ 100 ML IV ONE (05:50)
[2017-09-11] MEDS ORDERED: ETOMIDATE 20 MG/10 ML VIAL ONE (06:00)
[2017-09-11] MEDS ORDERED: NOREPINEPHRINE 4 MG/4 ML AMP ONE (06:00)
[2017-09-11] MEDS: PCA - TOTAL MG MORPHINE DELIVERED PER SHIFT SCH (06:00)
[2017-09-11] MEDS ORDERED: KETAMINE HCL 500 MG/10 ML VIAL ONE (06:20)
[2017-09-11] MEDS ORDERED: MIDAZOLAM HCL 2 MG/2 ML VIAL ONE (07:10)
[2017-09-11] MEDS ORDERED: ALBUMIN 5% INJ 250 ML IV ONE (07:25)
[2017-09-11] MEDS ORDERED: DEXMEDETOMIDINE HCL 200 MCG/2 ML VIAL ONE (07:38)
[2017-09-11] MEDS ORDERED: SODIUM CHLORIDE 0.9% INJ 50 ML ONE (07:38)
[2017-09-11] MEDS ORDERED: SODIUM BICARBONATE 8.4% INJ 50 MEQ/50 ML SYR ONE (07:40)
[2017-09-11] MEDS ORDERED: DO NOT ADM ANY ANTICOAGULANT DRUGS PRN (08:14)
[2017-09-11 08:36] LABS: BASOPHIL % 0.1 % (0.0-2.0); EOSINOPHIL % 0.9 % (0.0-4.0); HEMATOCRIT 34.8 % (39.0-51.0); HEMOGLOBIN 11.8 GM/DL (13.0-17.0); LYMPH % 10.7 % (9.0-44.0); LYMPHOCYTE # 0.4 TH/MM3 (1.0-4.8); MEAN CELL VOLUME 89.9 FL (80.0-100.0); MEAN CORPUSCULAR HEMOGLOBIN 30.4 PG (27.0-34.0); MEAN CORPUSCULAR HGB CONC 33.8 % (32.0-36.0); MEAN PLATELET VOLUME 8.1 FL (7.0-11.0); MONO % 6.8 % (0.0-8.0); MONOCYTE # 0.3 TH/MM3 (0-0.9); NEUT % 81.5 % (16.0-70.0); PLATELET COUNT 136 TH/MM3 (150-450); RED BLOOD COUNT 3.87 MIL/MM3 (4.50-5.90); RED CELL DISTRIBUTION WIDTH 14.9 % (11.6-17.2); WHITE BLOOD COUNT 3.7 TH/MM3 (4.0-11.0)
[2017-09-11] MEDS ORDERED: *morphine SULFATE 4 MG/ML PERIprocedure ONLY ONE (08:37)
--- NOTE | 2017-09-11 08:54 | RADRPT ---
EXAM DATE/TIME: 09/11/2017 08:17 [facility] COMPARISON: CHEST SINGLE AP, September 11, 2017, 2:33. INDICATIONS : Central line placement in or. MEDICAL HISTORY : Myocardial infarction. Hypercholesterolemia. Thyroid disease. Tinnitus. HTN. Midly enlarged prostate. Gout. SURGICAL HISTORY : Coronary artery stent. Cardiac cath. ENCOUNTER: Subsequent ACUITY: 3 days PAIN SCORE: Non-responsive. LOCATION: Bilateral chest FINDINGS: The cardiac silhouette is enlarged in transverse diameter. Support lines and tubes are in satisfactor y position. A right sided internal jugular vein catheter is in place without pneumothorax with its ti p in the superior vena cava. There is left lower lobe atelectasis versus pneumonia. CONCLUSION: Uncomplicated line placement. No evidence of pneumothorax. Lobo Elliott MD on September 11, 2017 at 8:51 Board Certified Radiologist. This report was verified electronically.
--- NOTE | 2017-09-11 08:54 | MP ---
cc: Ivory Mcclellan MD DATE OF OPERATION: 09/11/2017 PREOPERATIVE DIAGNOSIS: Free air postop presumed perforated viscus. POSTOPERATIVE DIAGNOSIS: Small bowel enterotomy with leakage of small bowel contents. OPERATIVE INDICATIONS: The patient is a 67-year-old male who is 4 days out from a robotic-assisted ascending colectomy. He began having distention about 2 days ago. An NG tube decompression did not really make a significant difference, then he acutely got worse today, although KUB has not shown any free air on the morning of the 2nd by late evening and on the 3rd chest CT did show evidence of new free air. OPERATIVE FINDINGS: At approximately the mid-ileum, there was an area just next to the mesentery with a defect in the small bowel. There was large amounts of small bowel contents throughout the peritoneal cavity with some inflammatory changes and some peel on the bowel as well. The anastomosis was visualized and was patent and showed no sign of any leakage as did the remainder of the colon and the remainder of the small bowel. OPERATIVE COURSE: The patient was brought to the operating room, placed in supine position. After induction of general anesthesia and resuscitation by Anesthesia, the dressings were removed, as were the Steri-Strips. Again, the anterior abdominal wall was then prepped and draped in the usual sterile fashion. After an appropriate time-out, a vertical midline incision was made detouring to the left of the umbilicus using electrocautery. Dissection was carried down to the fascia of the anterior abdominal wall. This was opened and immediately had expression of large amounts of what appeared to be small bowel contents. The wound was then lengthened from below the xiphoid to just above the umbilicus and the fluid was suctioned out of the peritoneal cavity. 7 liters of irrigation were then irrigated through the peritoneal cavity being sure to get in all the various areas. Beginning at the ligament of Treitz, the small bowel was run and initially we did not appreciate the small defect in the bowel on our initial run through, so we then continued to the anastomosis, which appeared inflammatory, but otherwise no sign of any leakage noted. There was quite a bit of air in the colon interestingly enough. We then followed the colon up and around the splenic flexure and down the descending colon and into the sigmoid still seeing no sign of any definitive leak or defect. At this point, we examined both the anterior and posterior wiseman of the stomach with no sign of any leakage or really much succuss down in that area. We ran the small bowel again in a retrograde fashion and at that point, we were able to visualize the defect as noted previously. With this finding and after discussion, I felt that the most appropriate thing was a diverting stoma. The mesentery at the area was gently opened and a site was chosen for the stoma being where it would come up as much as possible to his fairly portly abdominal wall. A 2 cm ellipse of skin was removed sharply using electrocautery. Dissection was carried down to the fascia of the anterior abdominal wall. The anterior fascia was then divided in the length of the incision and the fibers of the rectus abdominis muscle were then gently spread. The posterior fascia was then opened as well. Unfortunately, however, due to the swelling and the fairly fatty tissue, it was difficult and I was not able to bring a loop ileostomy out, so I elected to proceed with an end ileostomy. The distal bowel was then stapled off using the CHILO stapler, but it was left attached. I did not open the mesentery too much so that it would be easy to retrieve. The proximal stapled end of the bowel was then gently brought up and out through the incision. The area with the tear was then resected removing possibly 2 cm of bowel. The bowel came up, but was not quite as a loose as I would like, but it did come up so that it would make a reasonable stoma. JPs were placed from the right side into the right gutter and in the left lower quadrant into the left gutter. The posterior fascia was then closed in a running fashion using looped #1 PDS. The wound was copiously irrigated with warm normal saline. The skin was closed using saima. The JPs were secured using 3-0 nylon and the stoma was then matured in a typical Martina fashion using 3-0 Vicryl. A stoma appliance was then applied. A sterile dressing was then applied and the BRANDEN bulbs were attached. All sponge, needle and instrument counts were correct and the patient was returned to the Postanesthesia Care Unit in a stable, but guarded condition. MD IVETTE Gudino/MESSI , 08:16 AM , 08:54 AM
[2017-09-11] MEDS: PANTOPRAZOLE SODIUM 40 MG VIAL IVP SCH (09:00)
[2017-09-11] MEDS ORDERED: SODIUM CHLOR 0.9% 1000 ML INJ 1,000 ML OTHER PRN (09:25)
[2017-09-11] MEDS ORDERED: SODIUM CHLOR 0.9% 1000 ML INJ 1,000 ML IV PRN (09:25)
[2017-09-11 09:28] LABS: BANDS 67 % (0-6); LYMPHOCYTES 7 % (9-44); METAMYELOCYTES 6 % (0-1); MONOCYTES 6 % (0-8); NEUTROPHIL # MANUAL DIFF 3.2 TH/MM3 (1.8-7.7); POLYS (SEG NEUTROPHILS) 14 % (16-70)
[2017-09-11 09:29] LABS: TOXIC GRANULATION 1+ (NORMAL)
[2017-09-11] MEDS ORDERED: NITROGLYCERIN 0.4 MG SL 25 TABS/BTL SL PRN (09:30)
[2017-09-11] MEDS ORDERED: cloNIDine HCL 0.1 MG TAB PO PRN (09:30)
[2017-09-11] MEDS ORDERED: HEPARIN SODIUM - IV 10,000 UNITS/10 ML VIAL IV FLUSH PRN (09:30)
[2017-09-11] MEDS ORDERED: ONDANSETRON HCL 4 MG/2 ML VIAL IV PUSH PRN (09:30)
[2017-09-11] MEDS ORDERED: MANNITOL 12.5 GM/50 ML VIAL IV PRN (09:30)
[2017-09-11] MEDS ORDERED: GELATIN 12 MM/7 MM FOAM TOP PRN (09:30)
[2017-09-11 09:31] LABS: TOXIC VACUOLATION PRESENT (NONE SEEN)
--- NOTE | 2017-09-11 09:31 | HHI.NPPN ---
Subjective Renal Failure: Acute Interval History He developed pneumoperitoneum, was taken to the OR emergently. Is seen in PACU. He is intubated, tachycardic, hypotensive on pressors. Oliguric, creatinine slightly better this AM. To be transferred to [facility]. (Helena Malave) Review of Systems General General Remarks unable to evaluate (Helena Malave) Objective Data Data Vital Signs Date Time Temp Pulse Resp B/P (MAP) Pulse Ox O2 Delivery O2 Flow Rate FiO2 09/11/17 08:40 100 90 09/11/17 08:03 97 100 09/11/17 05:08 190 09/11/17 04:00 110 09/11/17 04:00 98.2 111 20 99/54 (69) 98 09/11/17 03:38 97 Simple Mask 8.00 09/11/17 03:30 97 Simple Mask 8.00 09/11/17 02:30 92 Nasal Cannula 6.00 09/11/17 02:00 92 Nasal Cannula 6.00 09/11/17 02:00 124 09/11/17 01:00 114 09/11/17 00:30 98.5 115 20 98/57 (71) 93 09/11/17 00:30 93 Nasal Cannula 2.00 09/11/17 00:00 118 09/10/17 23:45 Nasal Cannula 4.00 09/10/17 23:00 114 09/10/17 22:00 108 09/10/17 21:00 106 09/10/17 20:00 110 09/10/17 19:30 96 Room Air 09/10/17 19:30 99.0 123 24 102/57 (72) 96 09/10/17 19:00 123 09/10/17 18:00 122 09/10/17 17:00 120 09/10/17 16:00 115 09/10/17 15:00 120 09/10/17 15:00 98.2 120 32 108/59 (75) 95 09/10/17 15:00 95 Room Air 09/10/17 14:16 14 09/10/17 14:00 16 09/10/17 14:00 121 09/10/17 13:00 122 09/10/17 12:00 121 09/10/17 11:00 111 09/10/17 11:00 94 Room Air 09/10/17 11:00 98.0 113 16 106/58 (74) 94 09/10/17 10:00 118 09/10/17 09:23 96 21 (Helena Malave) -: 09/11/17 0815 09/10/17 2250 Imaging Last 72 hours Impressions Chest X-Ray 09/11/17 0000 Signed Impressions: Service Date/Time: Monday, September 11, 2017 08:17 - CONCLUSION: Uncomplicated line placement. No evidence of pneumothorax. Lobo Elliott MD Chest X-Ray 09/11/17 0000 Signed Impressions: Service Date/Time: Monday, September 11, 2017 02:33 - CONCLUSION: Pneumoperitoneum which is new. Michele Coleman MD Renal Ultrasound 09/10/17 0000 Signed Impressions: Service Date/Time: Sunday, September 10, 2017 15:17 - CONCLUSION: No evidence of mass or hydronephrosis. Andrés Gardner MD Abdomen X-Ray 09/10/17 0000 Signed Impressions: Service Date/Time: Sunday, September 10, 2017 10:17 - CONCLUSION: 1. Nonspecific, nonobstructive bowel gas pattern with some air identified in the nondistended colon. No pneumoperitoneum. 2. Left basilar airspace disease with possible associated small effusion. Ernesto Huston MD Abdomen X-Ray 09/09/17 1332 Signed Impressions: Service Date/Time: Saturday, September 09, 2017 13:36 - CONCLUSION: 1. No evidence of significant ileus or mass effect. 2. Satisfactory position of nasogastric tube. 3. Bilateral pleural effusions. Yo Ruff MD Tubes & Lines: [place]ela Tubes & Lines Comment TLC right IJ (Helena Malave) Physical Exam General Appearance: Well Developed, Comfortable Appearance Remarks intubated, agitated (Helena Malave) Throat Throat Exam: Oral Mucosa [place] & Moist (Helena Malave) Pulmonary Resp Exam: Breath Sounds Equal, No Distress Resp Remarks vented, shallow (Helena Malave) Gastrointestinal/Abdomen GI Exam: Bowel Sounds Hypoactive GI Remarks abd binder in place, BRANDEN drain in place (Helena Malave) Musculoskeletal MS Exam: Joints Intact, Good Strength, Unable to Ambulate (Helena Malave) Integumentary Skin Exam: Warm, Dry, Intact Skin Remarks midabdominal incision (Helena Malave) Neurologic Neuro Exam: Moving All Extremities, Sedated Neuro Remarks sedated but agitated (Helena Malave) Psychiatric Psych Exam: Appropriate Responses (Helena Malave) Assessment/Plan Assessment Summary: JOSEF/Acute Renal Failure, Acute Tubular Necrosis, Hypotension Electrolyte Assessment: Metabolic Acidosis Problem List: (1) JOSEF (acute kidney injury) ICD Codes: N17.9 - Acute kidney failure, unspecified Plan: His renal function is normal at baseline JOSEF most likely due to NSAID use; however now he has become anuric, suffered ATN Renal function had declined overnight but is slightly better this AM. Remains oliguric Now on pressors. Reduce bicarb gtt to 50 cc/hr (was 150 cc/hr due to hypotension) Most likely will needs dialysis today, will need vascath placed Obtain daily labs Avoid nephrotoxic agents. Awaiting UA for analysis (2) S/P partial colectomy ICD Codes: Z90.49 - Acquired absence of other specified parts of digestive tract Plan: He has developed small bowel perforation, s/p emergent ex lap with I&D Management per surgery He is hypotensive, septic To be transferred to [facility] Prognosis is guarded. (Helena Malave) Plan patient was seen and examined. Events noted. May need dialysis. Agree with above assessment and plan. (Nish Zhu MD) Helena Malave Sep 11, 2017 09:30 Nish Zhu MD Sep 11, 2017 10:27
[2017-09-11 09:39] LABS: BICARBONATE 20.2 MEQ/L (21.0-32.0); CALCIUM 6.6 MG/DL (8.5-10.1); CREATININE 4.27 MG/DL (0.60-1.30)
[2017-09-11 09:56] LABS: CALCIUM-PROTEIN CORRECTED 8.3 MG/DL (8.5-10.1)
[2017-09-11] MEDS ORDERED: DIGOXIN 0.5 MG/2 ML VIAL ONE (10:52)
[2017-09-11] MEDS ORDERED: AMIODARONE INJ 150 MG in DEXTROSE 5% IN WATER 100ML INJ 100 ML IV ONE ×2 (11:17)
--- NOTE | 2017-09-11 11:17 | PD.PROCEDR ---
Central Line Procedure REASON FOR PROCEDURE Central venous access PROCEDURE PERFORMED Central line placement: US guided LIJ VasCath CONSENT Informed consent for procedure was obtained. ANESTHESIA Local injection of 1% Lidocaine DESCRIPTION OF THE PROCEDURE The patient was placed in supine, mild Trendelenburg position. The area was exposed and cleansed with ChloraPrep, times two. Large sterile drape was used to cover the patient, with the site exposed, under sterile conditions including cap, face mask, sterile gown, and sterile gloves. On single attempt, the introducer needle was inserted with negative pressure in syringe and venous flash was obtained. The guide wire was then advanced without any restriction and the needle was removed. The dilator was used without any complications. Using Seldinger technique the 20 CM 14F double lumen catheter was advanced over the guide wire to a depth of 18 centimeters. The guide wire was removed. All ports were aspirated with dark venous blood return and flushed easily with sterile saline. All ports were capped. Antibiotic disc was placed around central line at puncture site. The central line was secured to the skin with two interrupted 2.0 silk sutures. The area was bandaged with sterile see- through central line bandage. RADIOLOGICAL DATA Ultrasound guidance was used to locate LIJ. Doppler/color flow was used to confirm venous flow. COMPLICATIONS: No apparent complications ESTIMATED BLOOD LOSS: Less than 1 cc. Eileen Bautista MD Sep 11, 2017 11:17
[2017-09-11] MEDS ORDERED: AMIODARONE INJ 450 MG in DEXTROSE 5% IN WATE(EXCEL) INJ 241 ML IV PRN ×2 (11:27)
[2017-09-11] MEDS: PROPOFOL 1000 MG/100 ML INJ 100 ML IV PRN ×3 (11:30→22:11)
--- NOTE | 2017-09-11 11:30 | RADRPT ---
EXAM DATE/TIME: 09/11/2017 11:10 [place] COMPARISON: CHEST SINGLE AP, September 11, 2017, 8:17. INDICATIONS : Central line placement. MEDICAL HISTORY : Myocardial infarction. Hypercholesterolemia. Thyroid disease. Tinnitus. HTN. SURGICAL HISTORY : Coronary artery stent. Cardiac cath. ENCOUNTER: Subsequent ACUITY: 1 day PAIN SCORE: Non-responsive. LOCATION: Bilateral chest FINDINGS: Mild left base consolidation and small effusion unchanged. I don't see a pneumothorax. There is a new left internal jugular central venous catheter with tip in the superior vena cava. The right IJ line with tip in the superior vena cava is unchanged. Endotracheal tube tip is about 5 cm above the michelle. Nasogastric tube again seen, courses into the s tomach. Old fracture of the distal shaft of the left clavicle again seen. CONCLUSION: 1. There is a new left IJ line with tip in the superior vena cava. No pneumothorax or other acute com plication. 2. Other lines and tubes unchanged, as above. 3. Mild consolidation and small effusion at the left lung base without significant change. Michele Oakley MD on September 11, 2017 at 11:26 Board Certified Radiologist. This report was verified electronically.
[2017-09-11] MEDS: VASOPRESSIN 40 U/D5W 100 ML Titrate IV PRN ×2 (11:57)
[2017-09-11] MEDS ORDERED: SUCCINYLCHOLINE CHLORIDE 200 MG/10 ML VIAL IV ONE (12:00)
[2017-09-11] MEDS ORDERED: PHENYLEPH/NS 1000 MCG/10 ML SYR IV ONE (12:00)
[2017-09-11] MEDS ORDERED: PROPOFOL 200 MG/20 ML AMP IV ONE (12:00)
[2017-09-11] MEDS ORDERED: LACTATED RINGER S IV ONE (12:00)
[2017-09-11] MEDS ORDERED: ceFAZolin INJ 1,000 MG VIAL IV ONE (12:00)
[2017-09-11] MEDS ORDERED: SODIUM CHLOR 0.9% 250 ML INJ 250 ML IV ONE (12:00)
[2017-09-11] MEDS ORDERED: ROCURONIUM INJ 50 MG/5 ML SYRINGE IV PUSH ONE (12:00)
[2017-09-11] MEDS ORDERED: LIDOCAINE HCL 1% PF 5 ML SYRINGE OTHER ONE (12:00)
[2017-09-11] MEDS ORDERED: NEOSTIGMINE 5 MG/5 ML SYRINGE IV PUSH ONE (12:00)
[2017-09-11] MEDS: AMIODARONE INJ 450 MG in SODIUM CHLOR 0.9% (EXCEL) INJ 241 ML IV PRN ×2 (12:29→19:38)
[2017-09-11] MEDS ORDERED: KCL/AQUEOUS SOLN Dialysate additive PRN (13:00)
[2017-09-11] MEDS ORDERED: NOREPINEPHRINE-DEXTROSE DRIP 250 ML IV ONE ×2 (13:16→17:07)
[2017-09-11] MEDS: PIPERACIL-TAZO 4.5 GM PREMIX 100 ML IV SCH ×2 (15:30→20:14)
--- NOTE | 2017-09-11 16:18 | PD.WCN.NOT ---
Wound Consult Description: New ostomy teaching ordered by Ostomy Type: Ileostomy Date of Surgery: Sep 11, 2017 Additional information systems security developer was unable to assess patient Ostomy due to sedation and abdominal binder.No family present in room.Diamond Polisher will attempt to see patient again tomorrow. Brenda Louis [facility] Sep 11, 2017 16:18
[2017-09-11] MEDS ORDERED: HYDROCORTISONE SOD SUCCINATE 250 MG VIAL IV STA (16:31)
[2017-09-11] MEDS ORDERED: SODIUM CHLOR 0.9% 1000 ML INJ 1,000 ML IV ONE (16:45)
[2017-09-11] MEDS ORDERED: TERBUTALINE INJ 1 MG/ML AMP SQ PRN (16:45)
[2017-09-11] MEDS ORDERED: PHENYLEPHRINE INJ 80 MG in DEXTROSE 5% IN WATE 500 ML INJ 492 ML IV PRN ×2 (16:45)
[2017-09-11] MEDS ORDERED: VANCOMYCIN INJ 1,000 MG in SODIUM CHLOR 0.9% 250 ML INJ 250 ML IV SCH (16:45)
[2017-09-11] MEDS ORDERED: Vancomycin Consult Pharmacy 1 EA OTHER SCH (16:45)
[2017-09-11] MEDS ORDERED: HYDROCORTISONE SOD SUCCINATE 100 MG VIAL IV STA (18:24)
[2017-09-11] MEDS ORDERED: VANCOMYCIN 1,000 MG/NS 250 ML IV ONE ×2 (18:30)
[2017-09-11] MEDS: SODIUM BICARBONATE 8.4% INJ 75 MEQ in SODIUM CHLOR 0.45% 1000 ML INJ 1,000 ML OTHER SCH ×3 (19:30→22:06)
[2017-09-11] MEDS: MICAFUNGIN INJ 150 MG in SODIUM CHLORIDE 0.9% INJ 100 ML IV SCH (20:28)
[2017-09-11] MEDS: NOREPINEPHRINE 4 MG/D5W 250 ML IV PRN ×2 (20:52→23:36)
[2017-09-11] MEDS: metroNIDAZOLE 500 MG INJ 100 ML IV SCH (21:28)
[2017-09-11] MEDS: HYDROCORTISONE SOD SUCCINATE 100 MG VIAL IV SCH (21:28)
[2017-09-12] VITALS (14 sets, daily range): BP systolic 102–133; BP diastolic 50–70; PULSE 64–76; RESP 18–24; TEMP 97–99; O2SAT 93–99
[2017-09-12] MEDS: PIPERACIL-TAZO 4.5 GM PREMIX 100 ML IV SCH ×2 (02:46→08:00)
[2017-09-12] MEDS: HEPARIN SODIUM - SQ 10,000 UNITS/ML VIAL SQ SCH (02:46)
[2017-09-12] MEDS: SODIUM BICARBONATE 8.4% INJ 75 MEQ in SODIUM CHLOR 0.45% 1000 ML INJ 1,000 ML OTHER SCH ×11 (02:47→22:30)
[2017-09-12] MEDS: VASOPRESSIN 40 U/D5W 100 ML Titrate IV PRN ×6 (02:58→21:30)
[2017-09-12] MEDS: PROPOFOL 1000 MG/100 ML INJ 100 ML IV PRN ×5 (03:04→21:25)
[2017-09-12] MEDS: HYDROCORTISONE SOD SUCCINATE 100 MG VIAL IV SCH ×3 (07:02→22:03)
[2017-09-12] MEDS: metroNIDAZOLE 500 MG INJ 100 ML IV SCH ×3 (07:03→22:03)
--- NOTE | 2017-09-12 08:28 | HHI.CCPN ---
Subjective Remarks/Hospital Course 67-year-old very pleasant gentleman initially admitted for same day surgery for polyp removal. Due to some complications in the OR he required a colonoscopy during the surgery and now he is postop day 4 status post robotic ascending colectomy. He also required bilateral ureteral catheter placement by urology. Postoperatively he was given Toradol, received 12 doses. He is now on IVF, urine output is very low and he has cola colored urine. He continues to be profoundly acidotic and the x-ray today shows pneumoperitoneum that is new compared to previous images. The patient's surgeon Dr. Mcclellan is at the bedside and she is taking him immediately to operating room for a revision. The patient during my exam is not in distress. SUBJ 09/12: Remains very critical in septic shock. CVVH started yesterday. Remains on Levophed, dontrell-synephrine and and vasopressin plus stress dose steroids. s/p Small bowel enterotomy with leakage of small bowel contents, s/p diverting ileostomy. WBC up to 19.5, platelet count 64 today Objective Vital Signs Date Time Temp Pulse Resp B/P (MAP) Pulse Ox O2 Delivery O2 Flow Rate FiO2 09/12/17 06:00 76 09/12/17 05:08 94 50 09/12/17 04:00 99.0 21 114/70 (85) 102/60 (74) 09/12/17 04:00 Mechanical Ventilator 09/11/17 03:38 8.00 Intake and Output 09/12/17 09/12/17 09/13/17 08:00 16:00 00:00 Intake Total 1800 ml Output Total 3276 ml Balance -1476 ml Result Diagram: 09/11/17 0815 09/11/17 0815 Other Results Laboratory Tests Test 09/11/17 08:29 09/11/17 11:24 09/11/17 16:35 Blood Gas Puncture Site ART LINE ART LINE ART LINE Blood Gas Patient Temperature 98.6 98.6 98.6 Blood Gas HCO3 20 mmol/L (22-26) 20 mmol/L (22-26) 19 mmol/L (22-26) Blood Gas Base Excess -6.7 mmol/L (-2-2) -4.9 mmol/L (-2-2) -5.5 mmol/L (-2-2) Blood Gas Oxygen Saturation 96 % (90-100) 94 % (90-100) 93 % (90-100) Arterial Blood pH 7.24 (7.380-7.420) 7.35 (7.380-7.420) 7.35 (7.380-7.420) Arterial Blood Partial Pressure CO2 48 mmHg (38-42) 36 mmHg (38-42) 35 mmHg (38-42) Arterial Blood Partial Pressure O2 138 mmHg (61-120) 86 mmHg (61-120) 75 mmHg (61-120) Arterial Blood Oxygen Content 15.8 Vol % (12.0-20.0) 16.8 Vol % (12.0-20.0) 15.1 Vol % (12.0-20.0) Arterial Blood Carboxyhemoglobin 0.9 % (0-4) 1.2 % (0-4) 1.1 % (0-4) Arterial Blood Methemoglobin 1.5 % (0-2) 1.1 % (0-2) 1.1 % (0-2) Blood Gas Hemoglobin 11.6 G/DL (12.0-16.0) 12.7 G/DL (12.0-16.0) 11.6 G/DL (12.0-16.0) Oxygen Delivery Device VENTILATOR VENTILATOR VENTILATOR Blood Gas Ventilator Setting A/C 12/500/PEEP5 [id number] AC: 16/500/+8/50% Blood Gas Inspired Oxygen 100 % 55 % 50 % Imaging Last 24 hours Impressions Chest X-Ray 09/11/17 0000 Signed Impressions: Service Date/Time: Monday, September 11, 2017 02:33 - CONCLUSION: Pneumoperitoneum which is new. Michele Coleman MD Objective Remarks GENERAL: Well-nourished, well-developed patient. Very critical condition, on 3 vasopressors SKIN: Warm and dry. HEAD: Normocephalic. EYES: MARIO. ENT: Orotracheally intubated NECK: Supple, trachea midline. Bilateral IJ central lines CARDIOVASCULAR: Regular rate and rhythm without murmurs, gallops, or rubs. NSR on Amiodarone drip RESPIRATORY: Breath sounds equal bilaterally. No accessory muscle use. On PRVC AC GASTROINTESTINAL: Abdominal binder in place. ileostomy pink, Dressings c/d/i. BRANDEN x2 with serosanguineous output MUSCULOSKELETAL: No cyanosis, or edema. NEURO EXAM: GCS: Intubated heavily sedated, nos spontaneous eye opening. No withdrawal to pain on heavy sedation A/P Assessment and Plan Neuro: -Propofol for Sedation and vent synchrony -Fentanyl gtt added for pain control -No sedation medication until shock, sepsis is improved Resp Acute hypoxemic respiratory failure -PRVC/AC, ventilator bundle -Head of the bed elevation to 30, DuoNeb every 6 hours as needed -No ventilator weaning due to acute severe refractory shock CVS: Severe septic shock Lactic acidosis A fib with RVR, now NSR -Aggressively fluid resuscitated -Currently remains on Levophed 20 mcg/min, Dontrell-Synephrine 100 mcg/min, vasopressin 0.04 international units to maintain map above 60 -Trend lactic acid -Hold all home antihypertensives (metoprolol, Norvasc) -Continue Amiodarone, Cannot anticoagulate due to surgery and thrombocytopenia /Endo: Acute kidney failure Metabolic acidosis -Most likely secondary to ATN/septic shock -Nephrology Dr. Zhu following, CVVH started 09/11/17 -Discontinue bicarbonate infusion as the patient is on CVVH GI/ID Small bowel enterotomy with leakage of small bowel contents, status post ex lap s/p diverting ileostomy POD 1 Pneumoperitoneum Peritonitis with septic shock -Status post ascending colectomy 09/07 pod 5 -status post ex lap irrigation and diverting ileostomy for small bowel perforation pod1 -Continue Flagyl, Zosyn, Diflucan and vancomycin -Consult ID for septic shock -Post op Management per Dr. Mcclellan general surgery HEME: Thrombocytopenia -Monitor CBC, coags -Thrombocytopenia secondary to sepsis, DIC -Hold sq Heparin DVT GI prophylaxis -Luis M's and SCDs -Subcu heparin-hold due to thrombocytopenia -Pepcid Critical Care: The total critical care time was 45 minutes. Time to perform other separately billable procedures was not included in the critical care time. Remains critical with guarded prognosis due to refractory septic shock and multi organ failure. updated 09/11/17 Eileen Bautista MD Sep 12, 2017 08:28
[2017-09-12 08:40] LABS: AUTOMATED NEUTROPHIL # 18.2 TH/MM3 (1.8-7.7); BASOPHIL % 0.2 % (0.0-2.0); EOSINOPHIL % 0.1 % (0.0-4.0); HEMATOCRIT 32.2 % (39.0-51.0); LYMPH % 3.1 % (9.0-44.0); LYMPHOCYTE # 0.6 TH/MM3 (1.0-4.8); MEAN CELL VOLUME 88.5 FL (80.0-100.0); MEAN CORPUSCULAR HEMOGLOBIN 30.3 PG (27.0-34.0); MEAN CORPUSCULAR HGB CONC 34.2 % (32.0-36.0); MEAN PLATELET VOLUME 8.5 FL (7.0-11.0); MONOCYTE # 0.6 TH/MM3 (0-0.9); NEUT % 93.6 % (16.0-70.0); PLATELET COUNT 64 TH/MM3 (150-450); RED BLOOD COUNT 3.64 MIL/MM3 (4.50-5.90); RED CELL DISTRIBUTION WIDTH 14.8 % (11.6-17.2); WHITE BLOOD COUNT 19.4 TH/MM3 (4.0-11.0)
[2017-09-12 08:45] LABS: BICARBONATE 23.3 MEQ/L (21.0-32.0); CREATININE 4.47 MG/DL (0.60-1.30)
[2017-09-12] MEDS: NOREPINEPHRINE 4 MG/D5W 250 ML IV PRN ×2 (08:45→17:00)
--- NOTE | 2017-09-12 08:45 | MB ---
cc: Anthony Lindsay MD DATE: 09/12/2017 REASON FOR CONSULTATION: Atrial fibrillation. HISTORY OF PRESENT ILLNESS: The patient is a 67-year-old white male with a history of coronary artery disease, hypertension, hyperlipidemia, paroxysmal ventricular tachycardia, who was initially admitted about 5 days ago for a robotic ascending colectomy. Yesterday, he needed further surgery due to a perforated viscus (small bowel). Yesterday, he also developed atrial fibrillation with a rapid ventricular response. His postoperative course has also been notable for the development of renal failure. Currently, the patient is intubated and sedated. He did convert back to sinus rhythm sometime yesterday evening. PAST MEDICAL HISTORY: 1. Benign prostatic hypertrophy. 2. Coronary artery disease, status post myocardial infarction 03/2012, at which time cardiac catheterization showed an occluded, but well collateralized left circumflex, otherwise normal coronary arteries. His last heart catheterization was 11/24/2014 showing normal left main, 75% proximal LAD stented with a 3.0 mm Promus stent, 60-65% diffuse mid left circumflex disease stented with a 2.25 mm Promus stent, 20% proximal right coronary artery disease, ejection fraction 60%. 3. Gout. 4. Hyperlipidemia. 5. Hypertension. 6. Hypothyroidism. 7. Obesity. 8. Paroxysmal ventricular tachycardia 11/23/2014 after 9 minutes into exercise treadmill test. CARDIAC MEDICATIONS AT HOME: 1. Aspirin 81 mg daily. 2. Cozaar 100 mg daily. 3. Metoprolol tartrate 25 mg daily. 4. Norvasc 5 mg daily. 5. Potassium 99 mg daily. ALLERGIES: NO KNOWN DRUG ALLERGIES. FAMILY HISTORY: Noncontributory. SOCIAL HISTORY: There is no history of alcohol or tobacco abuse. REVIEW OF SYSTEMS: Currently unobtainable. PHYSICAL EXAMINATION: VITAL SIGNS: Blood pressure 102/60 with a pulse of 76, respirations 20. GENERAL: He is a well-developed, well-nourished white male, currently intubated and sedated. NECK: Jugular venous pressure and carotid pulses cannot be assessed as there are a number of venous lines. LUNGS: Examination of the chest reveals clear lungs escobedo anteriorly. CARDIAC: He has a regular rhythm and rate without definite S3, S4, or murmur. ABDOMEN:. Aggressive palpation was not pursued. Bowel sounds are absent. EXTREMITIES: Reveals no clubbing or cyanosis. There is trace to 1+ pretibial edema bilaterally. DIAGNOSTIC STUDIES: Laboratory data includes potassium 4.1, BUN 52, creatinine 4.27. WBC 3.7, hemoglobin 11.8, platelets 136. Chest x-ray from yesterday did show pneumoperitoneum. EKG is pending. IMPRESSION: Paroxysmal atrial fibrillation in a 67-year-old white male with a history of coronary artery disease, hypertension, hyperlipidemia, history of paroxysmal ventricular tachycardia. With intravenous amiodarone, he has converted back to sinus rhythm. There is no definite evidence for acute coronary syndrome. EKG is pending. His thromboembolic risk is probably overall low. RECOMMENDATIONS: 1. Check a 2D echo to reassess his left ventricular function. 2. Continue intravenous amiodarone. 3. Check an EKG this morning. MD DENISE Cobos/TAYLOR , 08:26 AM , 08:43 AM JOSSELYN
--- NOTE | 2017-09-12 08:46 | HHI.PR ---
Subjective Remarks POD#5 s/p robotic ascending colectomy/POD#1 exploratory lap with diverting ileostomy Intubated, sedated Objective Vital Signs Date Time Temp Pulse Resp B/P (MAP) Pulse Ox O2 Delivery O2 Flow Rate FiO2 09/12/17 06:00 76 09/12/17 05:08 94 50 09/12/17 04:00 99.0 76 21 114/70 (85) 94 102/60 (74) 09/12/17 04:00 98 Mechanical Ventilator 50 09/12/17 04:00 76 09/12/17 02:58 76 115/67 09/12/17 02:00 76 09/12/17 01:57 98 50 09/12/17 00:00 98 Mechanical Ventilator 50 09/12/17 00:00 75 09/12/17 00:00 98.5 75 21 133/62 (85) 97 129/69 (89) 09/11/17 23:36 75 111/67 09/11/17 22:05 98 50 09/11/17 22:00 75 09/11/17 20:52 78 113/64 09/11/17 20:00 99.3 78 22 109/54 (72) 98 93/49 (64) 09/11/17 20:00 98 Mechanical Ventilator 50 09/11/17 20:00 78 09/11/17 19:38 81 108/69 09/11/17 18:00 82 09/11/17 16:19 94 50 09/11/17 16:00 99.2 84 16 86/52 (63) 94 09/11/17 16:00 84 09/11/17 16:00 94 Mechanical Ventilator 50 09/11/17 14:00 90 09/11/17 13:48 96 55 09/11/17 12:29 90 109/67 09/11/17 12:00 98 Mechanical Ventilator 90 09/11/17 12:00 142 09/11/17 12:00 147 108/63 09/11/17 12:00 98.4 142 16 115/76 (89) 97 09/11/17 11:57 124 123/79 09/11/17 10:16 90 09/11/17 10:00 124 09/11/17 10:00 97 Mechanical Ventilator 90 09/11/17 10:00 98.2 138 16 114/72 (86) 97 09/11/17 09:56 100 70 09/11/17 09:19 98.2 129 14 90/54 (66) 93 Mechanical Ventilator 100 09/11/17 09:15 134 14 102/50 (67) 95 Mechanical Ventilator 100 09/11/17 09:00 126 14 93/56 (68) 92 Mechanical Ventilator 100 09/11/17 08:45 140 14 101/62 (75) 95 Mechanical Ventilator 100 I/O 09/11/17 09/11/17 09/11/17 09/12/17 09/12/17 09/12/17 07:00 15:00 23:00 07:00 15:00 23:00 Intake Total 7123 ml 4857 ml 2050 ml Output Total 320 ml 500 ml 3276 ml Balance 6803 ml 4357 ml -1226 ml IV Total 1123 ml 4857 ml 2050 ml Other 6000 ml Output Urine Total 50 ml 50 ml 100 ml Stool Total 45 ml Gastric Drainage Total 20 ml 0 ml 25 ml Drainage Total 100 ml 450 ml 80 ml Hemodialysis 3026 ml Estimated Blood Loss 150 ml # Bowel Movements 0 Result Diagram: 09/11/17 0815 09/11/17 0815 Objective Remarks Abdomen soft, distended, ileostomy pink Dressings c/d/i BRANDEN - serosanguinous Assessment and Plan Assessment and Plan transverse colon polyp/sb enterotomy labs pending NEURO - sedated CV - still requiring pressors PULM - stable on vent still on 50% FiO2 GI - NG FEN - Dialysis yesterday and again today, making scant urine ID - on Flagyl/Zosyn Condition guarded Ivory Mclcellan MD Sep 12, 2017 08:46
[2017-09-12 08:59] LABS: TOTAL PROTEIN 4.1 GM/DL (6.4-8.2)
[2017-09-12] MEDS: PANTOPRAZOLE SODIUM 40 MG VIAL IVP SCH (09:00)
[2017-09-12 09:02] LABS: CALCIUM-PROTEIN CORRECTED 7.4 MG/DL (8.5-10.1)
[2017-09-12 09:19] LABS: ALBUMIN 1.1 GM/DL (3.4-5.0); BANDS 30 % (0-6); LYMPHOCYTES 1 % (9-44); MAGNESIUM 1.4 MG/DL (1.5-2.5); METAMYELOCYTES 8 % (0-1); MONOCYTES 7 % (0-8); MYELOCYTES 6 % (0-0); NEUTROPHIL # MANUAL DIFF 17.8 TH/MM3 (1.8-7.7); OVALOCYTES 1+ (NORMAL); PHOSPHORUS 4.4 MG/DL (2.5-4.9); POLYS (SEG NEUTROPHILS) 47 % (16-70); PROMYELOCYTES 1 % (0-0); TOTAL BILIRUBIN ADULT 2.4 MG/DL (0.2-1.0); TOXIC GRANULATION 2+ (NORMAL); TOXIC VACUOLATION PRESENT (NONE SEEN)
--- NOTE | 2017-09-12 09:37 | HHI.NPPN ---
Subjective Renal Failure: Acute Interval History He is on CRRT, day two. Urine output 100 in past 12 hrs. On multiple drips: Levophed, vasopressin, phenylephrine, propofol, amiodarone. Intubated on 50% FiO2. He is NPO. Has output from ileostomy. (Helena Malave) Review of Systems General General Remarks unable to evaluate (Helena Malave) Objective Data Data 09/12/17 09/13/17 19:00 07:00 Intake Total 550 ml Balance 550 ml IV Total 550 ml Vital Signs Date Time Temp Pulse Resp B/P (MAP) Pulse Ox O2 Delivery O2 Flow Rate FiO2 09/12/17 08:45 68 111/52 09/12/17 08:00 71 09/12/17 08:00 98.2 71 24 113/68 (83) Automatic Cuff 09/12/17 06:00 76 09/12/17 05:08 94 50 09/12/17 04:00 99.0 76 21 114/70 (85) 94 102/60 (74) 09/12/17 04:00 98 Mechanical Ventilator 50 09/12/17 04:00 76 09/12/17 02:58 76 115/67 09/12/17 02:00 76 09/12/17 01:57 98 50 09/12/17 00:00 98 Mechanical Ventilator 50 09/12/17 00:00 75 09/12/17 00:00 98.5 75 21 133/62 (85) 97 129/69 (89) 09/11/17 23:36 75 111/67 09/11/17 22:05 98 50 09/11/17 22:00 75 09/11/17 20:52 78 113/64 09/11/17 20:00 99.3 78 22 109/54 (72) 98 93/49 (64) 09/11/17 20:00 98 Mechanical Ventilator 50 09/11/17 20:00 78 09/11/17 19:38 81 108/69 09/11/17 18:00 82 09/11/17 16:19 94 50 09/11/17 16:00 99.2 84 16 86/52 (63) 94 09/11/17 16:00 84 09/11/17 16:00 94 Mechanical Ventilator 50 09/11/17 14:00 90 09/11/17 13:48 96 55 09/11/17 12:29 90 109/67 09/11/17 12:00 98 Mechanical Ventilator 90 09/11/17 12:00 142 09/11/17 12:00 147 108/63 09/11/17 12:00 98.4 142 16 115/76 (89) 97 09/11/17 11:57 124 123/79 09/11/17 10:16 90 09/11/17 10:00 124 09/11/17 10:00 97 Mechanical Ventilator 90 09/11/17 10:00 98.2 138 16 114/72 (86) 97 09/11/17 09:56 100 70 (Helena Malave) -: 09/12/17 0810 09/12/17 0810 Imaging Last 72 hours Impressions Chest X-Ray 09/11/17 0000 Signed Impressions: Service Date/Time: Monday, September 11, 2017 11:10 - CONCLUSION: 1. There is a new left IJ line with tip in the superior vena cava. No pneumothorax or other acute complication. 2. Other lines and tubes unchanged, as above. 3. Mild consolidation and small effusion at the left lung base without significant change. Michele Oakley MD Chest X-Ray 09/11/17 0000 Signed Impressions: Service Date/Time: Monday, September 11, 2017 08:17 - CONCLUSION: Uncomplicated line placement. No evidence of pneumothorax. Lobo Elliott MD Chest X-Ray 09/11/17 0000 Signed Impressions: Service Date/Time: Monday, September 11, 2017 02:33 - CONCLUSION: Pneumoperitoneum which is new. Michele Coleman MD Renal Ultrasound 09/10/17 0000 Signed Impressions: Service Date/Time: Sunday, September 10, 2017 15:17 - CONCLUSION: No evidence of mass or hydronephrosis. Andrés Gardner MD Abdomen X-Ray 09/10/17 0000 Signed Impressions: Service Date/Time: Sunday, September 10, 2017 10:17 - CONCLUSION: 1. Nonspecific, nonobstructive bowel gas pattern with some air identified in the nondistended colon. No pneumoperitoneum. 2. Left basilar airspace disease with possible associated small effusion. Ernesto Huston MD Abdomen X-Ray 09/09/17 [id number] Signed Impressions: Service Date/Time: Saturday, September 09, 2017 13:36 - CONCLUSION: 1. No evidence of significant ileus or mass effect. 2. Satisfactory position of nasogastric tube. 3. Bilateral pleural effusions. Yo Ruff MD Tubes & Lines: Vas-Cath, Canela Tubes & Lines Comment TLC right IJ VC left IJ A line ileostomy RLQ BRANDEN drains x 2 abd Drip Comment Amiodarone, propofol, phenylephrine, Levophed, vasopressin (Helena Malave. AGENCY OWNER) Physical Exam General Appearance: Well Developed, Comfortable Appearance Remarks intubated, sedated, not responding (Helena Malave [employer]ENCY OWNER) Throat Throat Exam: Oral Mucosa [place] & Moist (Helena Malave) Neck Neck Exam: Neck Supple (Helena Malave [employer]ENC[employer]NER) Pulmonary Resp Exam: Breath Sounds Equal, No Distress, Decreased Bases Resp Remarks vented lung sounds (Helena Malave) Gastrointestinal/Abdomen GI Exam: Distended, Bowel Sounds Hypoactive GI Remarks abd binder in place, BRANDEN drain in place x2 ileostomy (Helena Malave B. AGENCY OWNER) Genitourinary Remarks oliguric, urine is dark (Helena Malave) Musculoskeletal MS Exam: Joints Intact, Good Strength, Unable to Ambulate (Helena Malave. AGENCY OWNER) Integumentary Skin Exam: Warm, Dry, Intact Skin Remarks midabdominal incision (Helena Malave) Neurologic Neuro Exam: Unresponsive, Sedated (Helena Malave [employer]ENCY OWNER) Psychiatric Psych Exam: Appropriate Responses (Helena Malave) VTE Prophylaxis Device: SCDs (Helena Malave) Assessment/Plan Assessment Summary: JOSEF/Acute Renal Failure, Acute Tubular Necrosis, Hypotension Electrolyte Assessment: Metabolic Acidosis Problem List: (1) JOSEF (acute kidney injury) ICD Codes: N17.9 - Acute kidney failure, unspecified Plan: His renal function is normal at baseline JOSEF most likely due to NSAID use; now with ATN He is oligoanuric CRRT started / Net fluid removal 100 ml/hr On pressors due to hemodynamic instability. When able to ween off pressure support we will transition to IHD Await renal recovery On 40% FiO2, follow fluid status Off bicarb gtt Obtain labs Q6h per protocol Avoid nephrotoxic agents. He was started on vancomycin IV. (2) S/P partial colectomy ICD Codes: Z90.49 - Acquired absence of other specified parts of digestive tract Plan: He has developed small bowel perforation, s/p emergent ex lap with I&D 4/ 3 Management per surgery , has ileostomy that is draining He is hypotensive, septic, continue supportive care Currently NPO Prognosis is guarded. (3) Sepsis ICD Codes: A41.9 - Sepsis, unspecified organism Plan: Antibiotics include Zosyn, vancomycin, Flagyl monitor drug levels when appropriate (Helena Malave) Plan patient was seen and examined. Agree with above assessment and plan. Continue CRRT. Poor prognosis. Replace Calcium and Magnesium. Hemodynamically unstable. Patient is at high risk for complications. (Nish Zhu MD) Helena Malave Sep 12, 2017 09:37 Nish Zhu MD Sep 12, 2017 10:36
[2017-09-12] MEDS ORDERED: MAGNESIUM SULFATE 1 GM PREMIX 100 ML IV SCH ×2 (10:15→10:45)
[2017-09-12] MEDS: AMIODARONE INJ 450 MG in SODIUM CHLOR 0.9% (EXCEL) INJ 241 ML IV PRN (10:15)
[2017-09-12] MEDS ORDERED: VANCOMYCIN 1,000 MG/NS 250 ML IV ONE ×2 (11:00)
[2017-09-12] MEDS ORDERED: RASS Change Order XX ONE (11:15)
[2017-09-12] MEDS: fentaNYL DRIP 250 ML IV PRN (11:26)
[2017-09-12] MEDS ORDERED: MAGNESIUM SULFATE 2 GM/NS 100 ML IV ONE ×2 (12:00)
[2017-09-12] MEDS ORDERED: CALCIUM GLUCONATE INJ 2 GM in DEXTROSE 5% IN WATER 100ML INJ 100 ML IV ONE ×2 (12:00)
--- NOTE | 2017-09-12 13:04 | EKG ---
Date Performed: 09/12/2017 Time Performed: 09:17:50 PTAGE: 67 years EKG: Sinus rhythm . Normal ECG PREVIOUS TRACING : 11/23/2014 15.28 DOCTOR: Salo Will Interpretating Date/Time 09/12/2017 13:02:26
[2017-09-12] MEDS: PIPERACIL-TAZO 3.375 GM PREMIX 50 ML IV SCH ×2 (14:00→20:09)
--- NOTE | 2017-09-12 14:51 | PD.ID.CON ---
History of Present Illness Service ID Consult Requested By Reason for Consult Evaluation and Mment of Septic Shock, MODS, Secondary peritonitis from perforated small bowel. Primary Care Physician Brian Brown M.D. Diagnoses: History of Present Illness Most of the history was by review of medical records. provided few other facts. is a 67 y/o CM with PMHx significant for CAD, s/p PCI and stents. He was repeatedly diagnosed with sessile polyp and underwent exploratory laparoscopy with robotic takedown of splenic flexure, colonoscopy with tattooing and robotic ascending colectomy on 09/07/17 by . Reportedly, the urine output was low and urology was consulted when despite IVF urine output did not increase. Patient was seen by and underwent cystoscopy and bilateral ureteral catheter insertion with 500 cc of urine obtained. During the hospital stay patient subsequently had abdominal distention and despite NG tube to suction continued to have worsening distention and discomfort. A KUB done earlier on the day of CT on 09/11/2017 was negative for free air but subsequent imaging showed free air so patient was emergently taken to the OR by . Patient was found to have a small bowel defect and large amounts of of bowel contents were visible in peritoneum per op note. Critical Care was consulted and patient is currently being treated for Septic Shock with multiple pressors, IVF boluses given yday. He had low urine output and Nephrology is on the case and CVVHD initiated. Patient had issues with clotting of access line so CVVHD has been interrupted off and on. Patient is currently intubated on a ventilator. Not much resp secretions. Ileostomy output ok. Platelets have been low but no obvious bleeding from any sites. Patient remains sedated on vent. Patient has been started on empiric antibiotics Zosyn IV, Vanco IV x 1 dose, Flagyl IV, Micafungin IV. Left IJ Vascath placed on 09/11/2017 ID consulted for evaluation and Mment of Septic Shock, Secondary peritonitis. Review of Systems ROS Limitations: Intubated Past Family Social History Allergies: Coded Allergies: No Known Allergies (Unverified Allergy, Unknown, 09/07/17) Past Medical History HTN Gout Hypothyroidism based on med list Arthritis CAD Arthrosclerotic heart disease Past Surgical History PCI with stents x 3 per colonoscopy Reported Medications Reported Meds & Active Scripts Active Reported Metoprolol Succinate ER 24 HR (Metoprolol Succinate) 25 Mg Tab 25 Mg PO DAILY Cozaar (Losartan Potassium) 100 Mg Tab 100 Mg PO DAILY Levothyroxine (Levothyroxine Sodium) 50 Mcg Tab 50 Mcg PO DAILY Aspirin DR (Aspirin) 81 Mg Tabdr 81 Mg PO DAILY Amlodipine (Amlodipine Besylate) 5 Mg Tab 5 Mg PO DAILY Allopurinol 100 Mg Tab 100 Mg PO DAILY Active Ordered Medications Current Medications Medications (Trade) Dose Ordered Sig/Emilee Route Start Time Stop Time Status Last Admin (Tylenol) 650 mg Q4H PRN PO 09/07/17 16:00 09/08/17 11:06 (Protonix Inj) 40 mg DAILY IVP 09/08/17 09:00 09/12/17 09:00 (Zofran Inj) 4 mg Q6H PRN IV PUSH 09/07/17 16:00 09/08/17 01:06 (Vasotec Inj) 1.25 mg Q4H PRN IV PUSH 09/07/17 16:00 Future Hold (Vasotec Inj) 2.5 mg Q6H PRN IV PUSH 09/07/17 16:00 Future Hold (Chloraseptic Wilmer) 1 lozenge UNSCH PRN BUCCAL 09/07/17 16:00 Potassium Chloride 100 ml @ 50 mls/hr UNSCH PRN IV 09/07/17 16:00 Potassium Chloride 100 ml @ 25 mls/hr UNSCH PRN IV-CENTRAL 09/07/17 16:00 (Heparin Inj) 5,000 units Q12H SQ 09/08/17 15:00 Future Hold 09/12/17 02:46 (Narcan Inj) 0.4 mg UNSCH PRN IV PUSH 09/07/17 16:00 (Benadryl Inj) 25 mg Q6H PRN IV PUSH 09/07/17 16:00 (Norvasc) 5 mg DAILY PO 09/08/17 09:00 Future Hold 09/10/17 09:50 (Toprol Xl) 25 mg DAILY PO 09/08/17 09:00 Future Hold 09/10/17 09:50 (Dilaudid Pf Inj) 0.2 mg Q3H PRN IV 09/08/17 21:45 09/10/17 23:32 (Mylicon Chew) 80 mg Q6H PRN PO 09/08/17 21:45 09/09/17 12:07 (Hurricaine 20% Oral Spr) 1 spray Q6H PRN OROPHARYNG 09/09/17 13:45 09/09/17 21:23 (Kopperl 5-325 Mg) 1 tab Q6H PRN PO 09/10/17 15:00 09/10/17 15:54 (Kopperl 5-325 Mg) 2 tab Q6H PRN PO 09/10/17 15:00 09/10/17 22:13 (Benadryl Inj) 25 mg HS PRN IV PUSH 09/10/17 20:15 Metronidazole 100 ml @ 100 mls/hr Q8H IV 09/11/17 14:00 09/12/17 14:00 Sodium Chloride 1,000 ml @ 0 mls/hr Q0M PRN OTHER 09/11/17 09:25 (Heparin Inj) 8,000 units UNSCH PRN IV FLUSH 09/11/17 09:30 Sodium Chloride 1,000 ml @ 200 mls/hr Q5H PRN IV 09/11/17 09:25 Sodium Chloride 1,000 ml @ 0 mls/hr Q0M PRN OTHER 09/11/17 09:25 (Mannitol Inj) 12.5 gm UNSCH PRN IV 09/11/17 09:30 Albumin Human 100 ml @ 60 mls/hr UNSCH PRN IV 09/11/17 09:30 (NS Flush) 5 ml UNSCH PRN IV FLUSH 09/11/17 09:30 (Heparin Inj) UNSCH PRN .XX 09/11/17 09:30 (Gentamicin Inj) 20 mg UNSCH PRN OTHER 09/11/17 09:30 (Zofran Inj) 4 mg UNSCH PRN IV PUSH 09/11/17 09:30 (Tylenol) 650 mg UNSCH PRN PO 09/11/17 09:30 (Benadryl) 25 mg UNSCH PRN PO 09/11/17 09:30 (Nitrostat Sl) 0.4 mg UNSCH PRN SL 09/11/17 09:30 (Catapres) 0.1 mg UNSCH PRN PO 09/11/17 09:30 (Gelfoam 12 Mm/7 Mm Top) 1 foam UNSCH PRN TOP 09/11/17 09:30 Vasopressin 40 units/Dextrose 100 ml @ 1.5 mls/hr TITRATE PRN IV 09/11/17 11:30 09/12/17 17:34 Amiodarone HCl 450 mg/Sodium Chloride 250 ml @ 33.33 mls/ hr Q7H31M PRN IV 09/11/17 12:00 09/12/17 10:15 Propofol 100 ml @ 2.895 mls/ hr TITRATE PRN IV 09/11/17 12:45 09/12/17 15:40 Sodium Chloride 1,000 ml @ 0 mls/hr UNSCH PRN OTHER 09/11/17 13:00 (KCl 40 Meq Premix Inj) *FOR DIALYSIS USE IN C... WITH DIALYSIS PRN .XX 09/11/17 13:00 Sodium Bicarbonate 75 meq/Sodium Chloride 1,075 ml @ 1,000 mls/hr Q1H5M OTHER 09/11/17 13:15 09/12/17 20:30 Phenylephrine HCl 80 mg/Dextrose 500 ml @ 15 mls/hr TITRATE PRN IV 09/11/17 16:45 09/12/17 07:00 (Brethine Inj) 1 mg UNSCH PRN SQ 09/11/17 16:45 (SoluCORTEF INJ) 100 mg Q8HR IV 09/11/17 22:00 09/12/17 14:00 Micafungin Sodium 150 mg/Sodium Chloride 100 ml @ 100 mls/hr Q24H IV 09/11/17 18:00 09/12/17 17:32 Norepinephrine Bitartrate 250 ml @ 7.5 mls/hr TITRATE PRN IV 09/11/17 18:30 09/12/17 17:00 Miscellaneous Information SPECIFIC LAB TO BE DRAWN:VANCO TROUGH DATE TO BE DR... ONCE ONCE .XX 09/12/17 23:45 09/12/17 23:46 Fentanyl Citrate 250 ml @ 5 mls/hr TITRATE PRN IV 09/12/17 11:00 09/12/17 11:26 Piperacillin Sod/ Tazobactam Sod 50 ml @ 100 mls/hr Q6H IV 09/12/17 14:00 09/12/17 20:09 Family History reviewed briefly NC. No FHX of Colon Cancer. Social History No reported alcohol, smoking or drug abuse. Physical Exam Vital Signs Vital Signs Date Time Temp Pulse Resp B/P (MAP) Pulse Ox O2 Delivery O2 Flow Rate FiO2 09/12/17 14:29 95 40 09/12/17 12:00 66 09/12/17 12:00 97.0 66 20 109/51 (70) 99 09/12/17 12:00 99 40 09/12/17 10:15 68 117/55 09/12/17 10:00 68 109/54 09/12/17 09:31 99 50 09/12/17 09:30 68 108/52 09/12/17 09:00 68 106/57 09/12/17 08:45 68 111/52 09/12/17 08:15 71 100/47 09/12/17 08:00 71 09/12/17 08:00 98.2 71 24 113/68 (83) Automatic Cuff 09/12/17 08:00 50 09/12/17 07:00 72 104/65 09/12/17 06:00 76 09/12/17 05:08 94 50 09/12/17 04:00 99.0 76 21 114/70 (85) 94 102/60 (74) 09/12/17 04:00 98 Mechanical Ventilator 50 09/12/17 04:00 76 09/12/17 02:58 76 115/67 09/12/17 02:00 76 09/12/17 01:57 98 50 09/12/17 00:00 98 Mechanical Ventilator 50 09/12/17 00:00 75 09/12/17 00:00 98.5 75 21 133/62 (85) 97 129/69 (89) 09/11/17 23:36 75 111/67 09/11/17 22:05 98 50 09/11/17 22:00 75 09/11/17 20:52 78 113/64 09/11/17 20:00 99.3 78 22 109/54 (72) 98 93/49 (64) 09/11/17 20:00 98 Mechanical Ventilator 50 09/11/17 20:00 78 09/11/17 19:38 81 108/69 09/11/17 18:00 82 09/11/17 16:19 94 50 09/11/17 16:00 99.2 84 16 86/52 (63) 94 09/11/17 16:00 84 09/11/17 16:00 94 Mechanical Ventilator 50 Physical Exam GENERAL: This is a well-nourished, well-developed patient, in no apparent distress. SKIN: No rashes, ecchymoses or lesions. Cool and dry. HEAD: Atraumatic. Normocephalic. No temporal or scalp tenderness. EYES: Pupils equal round and reactive. No scleral icterus. No injection or drainage. ENT: Intubated. NECK: Trachea midline. Supple, nontender, no meningeal signs. CARDIOVASCULAR: HS audible. RESPIRATORY: Clear to auscultation. Breath sounds equal bilaterally but decreased in the bases. GASTROINTESTINAL: Abdomen soft, Ostomy bag with liquid stool. MUSCULOSKELETAL: Extremities without clubbing, cyanosis. Pedal edema noted. No joint tenderness, effusion, or edema noted. No calf tenderness. Negative Homans sign bilaterally. NEUROLOGICAL: Sedated Psych could not be assessed IV line sites with no e.o infection. [facility] [place] Laboratory Laboratory Tests Test 09/11/17 14:55 09/11/17 16:35 09/12/17 05:30 09/12/17 08:10 Lactic Acid Level 4.4 Hepatitis A IgM Antibody NONREACTIVE Hepatitis B Surface Antigen NONREACTIVE Hepatitis B Core IgM Antibody NONREACTIVE Hepatitis C IgG Antibody NONREACTIVE Blood Gas Puncture Site ART LINE Blood Gas Patient Temperature 98.6 Blood Gas HCO3 19 Blood Gas Base Excess -5.5 Blood Gas Oxygen Saturation 93 Arterial Blood pH 7.35 Arterial Blood Partial Pressure CO2 35 Arterial Blood Partial Pressure O2 75 Arterial Blood Oxygen Content 15.1 Arterial Blood Carboxyhemoglobin 1.1 Arterial Blood Methemoglobin 1.1 Blood Gas Hemoglobin 11.6 Oxygen Delivery Device VENTILATOR Blood Gas Ventilator Setting AC: 16/500/+8/50% Blood Gas Inspired Oxygen 50 Phosphorus Level 4.4 4.4 White Blood Count 19.4 Red Blood Count 3.64 Hemoglobin 11.0 Hematocrit 32.2 Mean Corpuscular Volume 88.5 Mean Corpuscular Hemoglobin 30.3 Mean Corpuscular Hemoglobin Concent 34.2 Red Cell Distribution Width 14.8 Platelet Count 64 Mean Platelet Volume 8.5 Neutrophils (%) (Auto) 93.6 Lymphocytes (%) (Auto) 3.1 Monocytes (%) (Auto) 3.0 Eosinophils (%) (Auto) 0.1 Basophils (%) (Auto) 0.2 Neutrophils # (Auto) 18.2 Lymphocytes # (Auto) 0.6 Monocytes # (Auto) 0.6 Eosinophils # (Auto) 0.0 Basophils # (Auto) 0.0 CBC Comment AUTO DIFF Differential Total Cells Counted 100 Neutrophils % (Manual) 47 Band Neutrophils % 30 Lymphocytes % 1 Monocytes % 7 Neutrophils # (Manual) 17.8 Metamyelocytes 8 Myelocytes 6 Promyelocytes 1 Differential Comment FINAL DIFF MANUAL Toxic Granulation 2+ Toxic Vacuolation PRESENT Platelet Estimate LOW Platelet Morphology Comment NORMAL Ovalocytes 1+ Blood Urea Nitrogen 51 Creatinine 4.47 Random Glucose 170 Total Protein 4.1 Albumin 1.1 Calcium Level 6.0 Magnesium Level 1.4 Alkaline Phosphatase 44 Aspartate Amino Transf (AST/SGOT) 59 Alanine Aminotransferase (ALT/SGPT) 16 Total Bilirubin 2.4 Sodium Level 137 Potassium Level 4.3 Chloride Level 101 Carbon Dioxide Level 23.3 Anion Gap 13 Estimat Glomerular Filtration Rate 13 Test 09/12/17 13:49 Result Diagram: 09/12/17 0810 09/12/17 0810 Imaging Last Impressions Chest X-Ray 09/11/17 0000 Signed Impressions: Service Date/Time: Monday, September 11, 2017 11:10 - CONCLUSION: 1. There is a new left IJ line with tip in the superior vena cava. No pneumothorax or other acute complication. 2. Other lines and tubes unchanged, as above. 3. Mild consolidation and small effusion at the left lung base without significant change. Michele Oakley MD Renal Ultrasound 09/10/17 0000 Signed Impressions: Service Date/Time: Sunday, September 10, 2017 15:17 - CONCLUSION: No evidence of mass or hydronephrosis. Andrés Gardner MD Abdomen X-Ray 09/10/17 0000 Signed Impressions: Service Date/Time: Sunday, September 10, 2017 10:17 - CONCLUSION: 1. Nonspecific, nonobstructive bowel gas pattern with some air identified in the nondistended colon. No pneumoperitoneum. 2. Left basilar airspace disease with possible associated small effusion. Ernesto Huston MD Assessment and Plan Assessment and Plan Severe Sepsis with Shock Secondary peritonitis due to small bowel perforation s/p Enterostomy and washout s/p robotic splenic flexure takedown on 09/07/17 s/p cystoscopy with bilateral ureteroscopies on 09/07/2017 Thrombocytopenia: sepsis, DIC Acute renal failure: prerenal, sepsis. On CVVHD. Recs: Continue ZOsyn IV(pressure requirements gone down, Clinically ok for now). If pressor requirements go up consider Meropenem IV to cover for MDRO Risk for MDRO is low as antibiotic naive prior to this admission. No recent hospitalizations prior to the planned Robotic surgery. No more Vanco IV for now in view of Acute renal failure. If GP coverage needed will consider alternatives. Check Vanco level in am if adequate levels may not need GP coverage for few more days in view of ARF. Continue Micafungin IV Continue Flagyl IV for double anaerobic coverage while septic. Check Blood cultures x 2 at risk for secondary bacteremia and fungemia from translocation. Follow cultures Follow clinically. Dw Patients and other family in room. Thank ful of care provided. Explained that the effects of cytokines can be causing overwhelming Sepsis/ Septic Shock. Explained concept of peritonitis and expected organisms and that this is an empiric coverage. Klever RN Critical thinking, images and meds reviewed. Lu Orozco MD Sep 12, 2017 14:51
[2017-09-12 15:26] LABS: ALBUMIN 1.3 GM/DL (3.4-5.0); BICARBONATE 26.4 MEQ/L (21.0-32.0); CALCIUM 6.7 MG/DL (8.5-10.1); CREATININE 3.88 MG/DL (0.60-1.30); PHOSPHORUS 4.6 MG/DL (2.5-4.9)
--- NOTE | 2017-09-12 17:09 | PD.WCN.NOT ---
Wound Consult Description: New ostomy teaching ordered by Communicated with: Mandy MAGUIRE Recommendation: Monitor ileostomy color and output Q8H Additional Information: Patient seen on with multiple family members at bedside. Per Mandy MAGUIRE patient is currently on continuous dialysis. Per Mandy MAGUIRE the ileostomy is pink and moist at this time with pouching system in place. Patient stoma not seen by film writer at this time. Patient will be followed up on 09/13/17 early in am for visualization of stoma. Ostomy Type: Ileostomy Date of Surgery: Sep 11, 2017 Marie Schroeder [facility] Sep 12, 2017 17:09
[2017-09-12] MEDS: MICAFUNGIN INJ 150 MG in SODIUM CHLORIDE 0.9% INJ 100 ML IV SCH (17:32)
[2017-09-12 17:35] LABS: CALCIUM 6.7 MG/DL (8.5-10.1); CALCIUM-PROTEIN CORRECTED 8.2 MG/DL (8.5-10.1); TOTAL PROTEIN 4.2 GM/DL (6.4-8.2)
[2017-09-12 21:18] LABS: ALBUMIN 1.2 GM/DL (3.4-5.0); BICARBONATE 26.5 MEQ/L (21.0-32.0); CREATININE 3.88 MG/DL (0.60-1.30); MAGNESIUM 1.8 MG/DL (1.5-2.5); PHOSPHORUS 4.1 MG/DL (2.5-4.9)
[2017-09-12 21:20] LABS: CALCIUM 6.6 MG/DL (8.5-10.1)
[2017-09-12] MEDS ORDERED: PHARMACY ORDERED LAB ONE (23:45)
[2017-09-13] VITALS (15 sets, daily range): BP systolic 100–134; BP diastolic 48–59; PULSE 63–76; RESP 18–22; TEMP 97.5–98.1; O2SAT 93–96
[2017-09-13] MEDS ORDERED: VANCOMYCIN INJ 1,200 MG in SODIUM CHLOR 0.9% 250 ML INJ 250 ML IV SCH ×2
[2017-09-13] MEDS: AMIODARONE INJ 450 MG in SODIUM CHLOR 0.9% (EXCEL) INJ 241 ML IV PRN ×2 (00:25→15:00)
[2017-09-13] MEDS: CALCIUM GLUCONATE INJ 2 GM in DEXTROSE 5% IN WATER 100ML INJ 100 ML IV SCH ×8 (00:54→18:00)
[2017-09-13] MEDS: NOREPINEPHRINE 4 MG/D5W 250 ML IV PRN ×2 (00:56→11:45)
[2017-09-13 01:01] LABS: ALBUMIN 1.1 GM/DL (3.4-5.0); BICARBONATE 26.5 MEQ/L (21.0-32.0); CALCIUM 6.1 MG/DL (8.5-10.1); CREATININE 3.8 MG/DL (0.60-1.30); MAGNESIUM 1.8 MG/DL (1.5-2.5); PHOSPHORUS 3.9 MG/DL (2.5-4.9)
[2017-09-13 01:12] LABS: CALCIUM-PROTEIN CORRECTED 7.5 MG/DL (8.5-10.1); TOTAL PROTEIN 4.2 GM/DL (6.4-8.2)
[2017-09-13] MEDS: PIPERACIL-TAZO 3.375 GM PREMIX 50 ML IV SCH ×2 (02:00→08:00)
[2017-09-13] MEDS: PROPOFOL 1000 MG/100 ML INJ 100 ML IV PRN ×4 (02:07→23:30)
[2017-09-13 03:13] LABS: ALBUMIN 1.1 GM/DL (3.4-5.0); BICARBONATE 27.3 MEQ/L (21.0-32.0); CALCIUM 6.9 MG/DL (8.5-10.1); CREATININE 3.99 MG/DL (0.60-1.30); MAGNESIUM 1.9 MG/DL (1.5-2.5); PHOSPHORUS 3.9 MG/DL (2.5-4.9)
[2017-09-13 03:29] LABS: CALCIUM-PROTEIN CORRECTED 8.4 MG/DL (8.5-10.1); TOTAL PROTEIN 4.3 GM/DL (6.4-8.2)
[2017-09-13] MEDS: metroNIDAZOLE 500 MG INJ 100 ML IV SCH ×3 (05:13→21:50)
[2017-09-13] MEDS: HYDROCORTISONE SOD SUCCINATE 100 MG VIAL IV SCH ×3 (05:13→21:50)
[2017-09-13 06:01] LABS: AUTOMATED NEUTROPHIL # 23.2 TH/MM3 (1.8-7.7); BASOPHIL % 0.1 % (0.0-2.0); HEMATOCRIT 29.7 % (39.0-51.0); HEMOGLOBIN 10.2 GM/DL (13.0-17.0); LYMPH % 2.2 % (9.0-44.0); LYMPHOCYTE # 0.6 TH/MM3 (1.0-4.8); MEAN CELL VOLUME 88.5 FL (80.0-100.0); MEAN CORPUSCULAR HEMOGLOBIN 30.5 PG (27.0-34.0); MEAN CORPUSCULAR HGB CONC 34.4 % (32.0-36.0); MONO % 5.4 % (0.0-8.0); MONOCYTE # 1.4 TH/MM3 (0-0.9); NEUT % 92.3 % (16.0-70.0); PLATELET COUNT 45 TH/MM3 (150-450); RED BLOOD COUNT 3.35 MIL/MM3 (4.50-5.90); RED CELL DISTRIBUTION WIDTH 14.5 % (11.6-17.2); WHITE BLOOD COUNT 25.2 TH/MM3 (4.0-11.0)
--- NOTE | 2017-09-13 06:43 | RADRPT ---
EXAM DATE/TIME: 09/13/2017 05:23 [place] COMPARISON: CHEST SINGLE AP, September 11, 2017, 11:10. INDICATIONS : Respiratory distress MEDICAL HISTORY : Myocardial infarction. Hypercholesterolemia. Thyroid disease. Tinnitus. HTN SURGICAL HISTORY : Coronary artery stent. Cardiac cath. ENCOUNTER: Subsequent ACUITY: 2 days PAIN SCORE: Non-responsive. LOCATION: Bilateral chest FINDINGS: Endotracheal tube, nasogastric tube and right central line are stable. Dialysis catheter enters from the left neck. Hazy bilateral pleuroparenchymal opacity has increased. Cardiac contours are grossly s table. CONCLUSION: Slight interval worsening in aeration. Michele Coleman MD on September 13, 2017 at 6:40 Board Certified Radiologist. This report was verified electronically.
[2017-09-13] MEDS: CEFTAROLINE INJ 600 MG in SODIUM CHLORIDE 0.9% INJ 100 ML IV SCH ×2 (08:30→20:47)
[2017-09-13 08:46] LABS: ALBUMIN 1.1 GM/DL (3.4-5.0); BICARBONATE 26.3 MEQ/L (21.0-32.0); CALCIUM 7.2 MG/DL (8.5-10.1); CREATININE 4.34 MG/DL (0.60-1.30); PHOSPHORUS 4.5 MG/DL (2.5-4.9)
[2017-09-13] MEDS: PANTOPRAZOLE SODIUM 40 MG VIAL IVP SCH (09:00)
[2017-09-13 09:20] LABS: BANDS 34 % (0-6); CORRECTED NUCLEATED RBC 1 /100 WBC (0-0); MONOCYTES 3 % (0-8); NEUTROPHIL # MANUAL DIFF 24.4 TH/MM3 (1.8-7.7); NUCLEATED RED BLOOD CELL 1 (0-0); POLYS (SEG NEUTROPHILS) 63 % (16-70)
[2017-09-13 09:21] LABS: TOXIC GRANULATION 2+ (NORMAL)
--- NOTE | 2017-09-13 09:21 | PD.CARD.PN ---
Subjective Subjective Remarks Intubated. Sedated. Objective Medications Item Value Date Time Norepinephrine 250 ml @ 7.5 mls/hr 09/11/17 1830 Bitartrate TITRATE PRN/IV 09/13/17 0056 Phenylephrine HCl 500 ml @ 15 mls/hr 09/11/17 1645 80 mg/Dextrose TITRATE PRN/IV 09/12/17 0700 Amiodarone HCl 250 ml @ 33.33 mls/hr 09/11/17 1200 450 mg/Sodium .Q7H31M PRN/IV 09/13/17 0025 Chloride Current Medications Medications (Trade) Dose Ordered Sig/Emilee Route Start Time Stop Time Status Last Admin (Tylenol) 650 mg Q4H PRN PO 09/07/17 16:00 09/08/17 11:06 (Protonix Inj) 40 mg DAILY IVP 09/08/17 09:00 09/12/17 09:00 (Zofran Inj) 4 mg Q6H PRN IV PUSH 09/07/17 16:00 09/08/17 01:06 (Vasotec Inj) 1.25 mg Q4H PRN IV PUSH 09/07/17 16:00 Future Hold (Vasotec Inj) 2.5 mg Q6H PRN IV PUSH 09/07/17 16:00 Future Hold (Chloraseptic Wilmer) 1 lozenge UNSCH PRN BUCCAL 09/07/17 16:00 Potassium Chloride 100 ml @ 50 mls/hr UNSCH PRN IV 09/07/17 16:00 Potassium Chloride 100 ml @ 25 mls/hr UNSCH PRN IV-CENTRAL 09/07/17 16:00 (Heparin Inj) 5,000 units Q12H SQ 09/08/17 15:00 Future Hold 09/12/17 02:46 (Narcan Inj) 0.4 mg UNSCH PRN IV PUSH 09/07/17 16:00 (Benadryl Inj) 25 mg Q6H PRN IV PUSH 09/07/17 16:00 (Norvasc) 5 mg DAILY PO 09/08/17 09:00 Future Hold 09/10/17 09:50 (Toprol Xl) 25 mg DAILY PO 09/08/17 09:00 Future Hold 09/10/17 09:50 (Dilaudid Pf Inj) 0.2 mg Q3H PRN IV 09/08/17 21:45 09/10/17 23:32 (Mylicon Chew) 80 mg Q6H PRN PO 09/08/17 21:45 09/09/17 12:07 (Hurricaine 20% Oral Spr) 1 spray Q6H PRN OROPHARYNG 09/09/17 13:45 09/09/17 21:23 (Walnut 5-325 Mg) 1 tab Q6H PRN PO 09/10/17 15:00 09/10/17 15:54 (Walnut 5-325 Mg) 2 tab Q6H PRN PO 09/10/17 15:00 09/10/17 22:13 (Benadryl Inj) 25 mg HS PRN IV PUSH 09/10/17 20:15 Metronidazole 100 ml @ 100 mls/hr Q8H IV 09/11/17 14:00 09/13/17 05:13 Sodium Chloride 1,000 ml @ 0 mls/hr Q0M PRN OTHER 09/11/17 09:25 (Heparin Inj) 8,000 units UNSCH PRN IV FLUSH 09/11/17 09:30 Sodium Chloride 1,000 ml @ 200 mls/hr Q5H PRN IV 09/11/17 09:25 Sodium Chloride 1,000 ml @ 0 mls/hr Q0M PRN OTHER 09/11/17 09:25 (Mannitol Inj) 12.5 gm UNSCH PRN IV 09/11/17 09:30 Albumin Human 100 ml @ 60 mls/hr UNSCH PRN IV 09/11/17 09:30 (NS Flush) 5 ml UNSCH PRN IV FLUSH 09/11/17 09:30 (Heparin Inj) UNSCH PRN .XX 09/11/17 09:30 (Gentamicin Inj) 20 mg UNSCH PRN OTHER 09/11/17 09:30 (Zofran Inj) 4 mg UNSCH PRN IV PUSH 09/11/17 09:30 (Tylenol) 650 mg UNSCH PRN PO 09/11/17 09:30 (Benadryl) 25 mg UNSCH PRN PO 09/11/17 09:30 (Nitrostat Sl) 0.4 mg UNSCH PRN SL 09/11/17 09:30 (Catapres) 0.1 mg UNSCH PRN PO 09/11/17 09:30 (Gelfoam 12 Mm/7 Mm Top) 1 foam UNSCH PRN TOP 09/11/17 09:30 Vasopressin 40 units/Dextrose 100 ml @ 1.5 mls/hr TITRATE PRN IV 09/11/17 11:30 09/12/17 21:30 Amiodarone HCl 450 mg/Sodium Chloride 250 ml @ 33.33 mls/ hr Q7H31M PRN IV 09/11/17 12:00 09/13/17 00:25 Propofol 100 ml @ 2.895 mls/ hr TITRATE PRN IV 09/11/17 12:45 09/13/17 02:07 Sodium Chloride 1,000 ml @ 0 mls/hr UNSCH PRN OTHER 09/11/17 13:00 (KCl 40 Meq Premix Inj) *FOR DIALYSIS USE IN C... WITH DIALYSIS PRN .XX 09/11/17 13:00 Sodium Bicarbonate 75 meq/Sodium Chloride 1,075 ml @ 1,000 mls/hr Q1H5M OTHER 09/11/17 13:15 09/12/17 22:30 Phenylephrine HCl 80 mg/Dextrose 500 ml @ 15 mls/hr TITRATE PRN IV 09/11/17 16:45 09/12/17 07:00 (Brethine Inj) 1 mg UNSCH PRN SQ 09/11/17 16:45 (SoluCORTEF INJ) 100 mg Q8HR IV 09/11/17 22:00 09/13/17 05:13 Micafungin Sodium 150 mg/Sodium Chloride 100 ml @ 100 mls/hr Q24H IV 09/11/17 18:00 09/12/17 17:32 Norepinephrine Bitartrate 250 ml @ 7.5 mls/hr TITRATE PRN IV 09/11/17 18:30 09/13/17 00:56 Fentanyl Citrate 250 ml @ 5 mls/hr TITRATE PRN IV 09/12/17 11:00 09/12/17 11:26 Piperacillin Sod/ Tazobactam Sod 50 ml @ 100 mls/hr Q6H IV 09/12/17 14:00 09/13/17 08:00 Calcium Gluconate 2 gm/Dextrose 120 ml @ 120 mls/hr Q6HR IV 09/13/17 00:00 09/14/17 02:00 09/13/17 07:00 Ceftaroline Fosamil 600 mg/ Sodium Chloride 100 ml @ 100 mls/hr Q12H IV 09/13/17 08:00 Vital Signs / I&O Vital Signs Date Time Temp Pulse Resp B/P (MAP) Pulse Ox O2 Delivery O2 Flow Rate FiO2 09/13/17 08:43 95 45 09/13/17 08:09 67 120/53 09/13/17 08:00 68 09/13/17 08:00 97.9 68 19 120/53 (75) 96 09/13/17 08:00 50 09/13/17 07:30 62 115/51 09/13/17 06:00 63 09/13/17 04:55 95 50 09/13/17 04:00 95 Mechanical Ventilator 50 09/13/17 04:00 40 09/13/17 04:00 66 09/13/17 04:00 98.1 65 19 134/59 (84) 96 09/13/17 02:00 70 09/13/17 01:26 93 40 09/13/17 00:56 73 107/50 09/13/17 00:25 73 104/48 09/13/17 00:00 93 Mechanical Ventilator 40 09/13/17 00:00 40 09/13/17 00:00 72 09/13/17 00:00 97.7 72 20 109/51 (70) 93 09/12/17 22:00 64 09/12/17 21:30 67 122/54 09/12/17 20:43 98 40 09/12/17 20:00 68 09/12/17 20:00 40 09/12/17 20:00 97.2 68 19 128/56 (80) 96 09/12/17 20:00 98 Mechanical Ventilator 40 09/12/17 18:15 68 111/51 09/12/17 17:34 71 106/49 09/12/17 17:00 74 100/48 09/12/17 16:00 98.4 72 18 105/50 (68) 93 09/12/17 16:00 72 09/12/17 15:15 71 92/44 09/12/17 15:00 75 100/48 09/12/17 14:29 95 40 09/12/17 12:00 66 09/12/17 12:00 97.0 66 20 109/51 (70) 99 09/12/17 12:00 99 40 09/12/17 10:15 68 117/55 09/12/17 10:00 68 109/54 09/12/17 09:31 99 50 09/12/17 09:30 68 108/52 I/O 09/12/17 09/12/17 09/12/17 09/13/17 09/13/17 09/13/17 07:00 15:00 23:00 07:00 15:00 23:00 Intake Total 2550 ml 6550 ml 5600 ml 870 ml 120 ml Output Total 3276 ml 220 ml 345 ml Balance -726 ml 6550 ml 5380 ml 525 ml 120 ml IV Total 2550 ml 6550 ml 5600 ml 870 ml 120 ml Output Urine Total 100 ml 50 ml 60 ml Stool Total 45 ml 50 ml 50 ml Gastric Drainage Total 25 ml 0 ml 150 ml Drainage Total 80 ml 120 ml 85 ml Hemodialysis 3026 ml # Bowel Movements 0 Physical Exam GENERAL: Well developed, well nourished. Intubated. Sedated. CHEST: Lungs clear to auscultation anteriorly. CARDIAC: Regular rate and rhythm without S3, S4, or murmur. ABDOMEN: Soft. No BS. EXTREMITIES: No clubbing, cyanosis. Trace edema. Laboratory Laboratory Tests Test 09/12/17 13:49 09/12/17 20:30 09/13/17 00:10 09/13/17 02:25 Blood Urea Nitrogen 47 MG/DL 50 MG/DL 49 MG/DL 52 MG/DL Creatinine 3.88 MG/DL 3.88 MG/DL 3.80 MG/DL 3.99 MG/DL Random Glucose 159 MG/DL 135 MG/DL 134 MG/DL 146 MG/DL Albumin 1.3 GM/DL 1.2 GM/DL 1.1 GM/DL 1.1 GM/DL Calcium Level 6.7 MG/DL 6.6 MG/DL 6.1 MG/DL 6.9 MG/DL Phosphorus Level 4.6 MG/DL 4.1 MG/DL 3.9 MG/DL 3.9 MG/DL Sodium Level 135 MEQ/L 135 MEQ/L 136 MEQ/L 136 MEQ/L Potassium Level 4.0 MEQ/L 3.9 MEQ/L 3.9 MEQ/L 3.8 MEQ/L Chloride Level 99 MEQ/L 98 MEQ/L 98 MEQ/L 97 MEQ/L Carbon Dioxide Level 26.4 MEQ/L 26.5 MEQ/L 26.5 MEQ/L 27.3 MEQ/L Anion Gap 10 MEQ/L 11 MEQ/L 12 MEQ/L 12 MEQ/L Estimat Glomerular Filtration Rate 16 ML/MIN 16 ML/MIN 16 ML/MIN 15 ML/MIN Protein Corrected Calcium 8.2 MG/DL 7.5 MG/DL 8.4 MG/DL Magnesium Level 2.0 MG/DL 1.8 MG/DL 1.8 MG/DL 1.9 MG/DL Total Protein 4.2 GM/DL 4.2 GM/DL 4.3 GM/DL Test 09/13/17 05:30 09/13/17 07:59 White Blood Count 25.2 TH/MM3 Red Blood Count 3.35 MIL/MM3 Hemoglobin 10.2 GM/DL Hematocrit 29.7 % Mean Corpuscular Volume 88.5 FL Mean Corpuscular Hemoglobin 30.5 PG Mean Corpuscular Hemoglobin Concent 34.4 % Red Cell Distribution Width 14.5 % Platelet Count 45 TH/MM3 Mean Platelet Volume 9.0 FL Neutrophils (%) (Auto) 92.3 % Lymphocytes (%) (Auto) 2.2 % Monocytes (%) (Auto) 5.4 % Eosinophils (%) (Auto) 0.0 % Basophils (%) (Auto) 0.1 % Neutrophils # (Auto) 23.2 TH/MM3 Lymphocytes # (Auto) 0.6 TH/MM3 Monocytes # (Auto) 1.4 TH/MM3 Eosinophils # (Auto) 0.0 TH/MM3 Basophils # (Auto) 0.0 TH/MM3 CBC Comment AUTO DIFF Random Vancomycin Level 11.9 COMMENT Blood Urea Nitrogen 56 MG/DL Creatinine 4.34 MG/DL Random Glucose 147 MG/DL Albumin 1.1 GM/DL Calcium Level 7.2 MG/DL Phosphorus Level 4.5 MG/DL Magnesium Level 2.0 MG/DL Sodium Level 135 MEQ/L Potassium Level 3.9 MEQ/L Chloride Level 97 MEQ/L Carbon Dioxide Level 26.3 MEQ/L Anion Gap 12 MEQ/L Estimat Glomerular Filtration Rate 14 ML/MIN Imaging Last 24 hours Impressions Chest X-Ray 09/13/17 0600 Signed Impressions: Service Date/Time: September 05:23 - CONCLUSION: Slight interval worsening in aeration. Michele Coleman MD Assessment and Plan Problem List: (1) Paroxysmal atrial fibrillation ICD Codes: I48.0 - Paroxysmal atrial fibrillation Status: Acute Plan: Remains in NSR on IV Amiodarone. Thromboembolic risk overall low. Continue same. Daily baby aspirin when OK from surgical standpoint. (2) CAD (coronary artery disease) ICD Codes: I25.10 - CAD (coronary artery disease) Status: Chronic Plan: Stable CAD status. No recent angina. Hemodynamically improving, requiring less pressor support. Code Status full code Problem Qualifiers (1) CAD (coronary artery disease): Qualified Codes: I25.10 - Atherosclerotic heart disease of [place] coronary artery without angina pectoris Anthony Lindsay MD Sep 13, 2017 09:20
--- NOTE | 2017-09-13 10:06 | HHI.NPPN ---
Subjective Renal Failure: Acute Interval History CVVH stopped around 11pm last night. Since starting, 5.8L have been removed. He remains intubated, sedated on vent. Oligoanuric, 50 ml/12 hrs. Requiring less vasopressor support. (Helena Malave) Review of Systems General General Remarks unable to evaluate (Helena Malave) Objective Data Data 09/13/17 09/14/17 19:00 07:00 Intake Total 170 ml Balance 170 ml IV Total 170 ml Vital Signs Date Time Temp Pulse Resp B/P (MAP) Pulse Ox O2 Delivery O2 Flow Rate FiO2 09/13/17 08:43 95 45 09/13/17 08:09 67 120/53 09/13/17 08:00 68 09/13/17 08:00 97.9 68 19 120/53 (75) 96 09/13/17 08:00 50 09/13/17 07:30 62 115/51 09/13/17 06:00 63 09/13/17 04:55 95 50 09/13/17 04:00 95 Mechanical Ventilator 50 09/13/17 04:00 40 09/13/17 04:00 66 09/13/17 04:00 98.1 65 19 134/59 (84) 96 09/13/17 02:00 70 09/13/17 01:26 93 40 09/13/17 00:56 73 107/50 09/13/17 00:25 73 104/48 09/13/17 00:00 93 Mechanical Ventilator 40 09/13/17 00:00 40 09/13/17 00:00 72 09/13/17 00:00 97.7 72 20 109/51 (70) 93 09/12/17 22:00 64 09/12/17 21:30 67 122/54 09/12/17 20:43 98 40 09/12/17 20:00 68 09/12/17 20:00 40 09/12/17 20:00 97.2 68 19 128/56 (80) 96 09/12/17 20:00 98 Mechanical Ventilator 40 09/12/17 18:15 68 111/51 09/12/17 17:34 71 106/49 09/12/17 17:00 74 100/48 09/12/17 16:00 98.4 72 18 105/50 (68) 93 09/12/17 16:00 72 09/12/17 15:15 71 92/44 09/12/17 15:00 75 100/48 09/12/17 14:29 95 40 09/12/17 12:00 66 09/12/17 12:00 97.0 66 20 109/51 (70) 99 09/12/17 12:00 99 40 09/12/17 10:15 68 117/55 09/12/17 10:00 68 109/54 (Helena Malave) -: 09/13/17 0530 09/13/17 0759 Microbiology 09/13/17 Aerobic Blood Culture, Received Pending 09/13/17 Anaerobic Blood Culture, Received Pending 09/13/17 Aerobic Blood Culture, Received Pending 09/13/17 Anaerobic Blood Culture, Received Pending Imaging Last 72 hours Impressions Chest X-Ray 09/13/17 0600 Signed Impressions: Service Date/Time: September 05:23 - CONCLUSION: Slight interval worsening in aeration. Michele Coleman MD Chest X-Ray 09/11/17 0000 Signed Impressions: Service Date/Time: Monday, September 11, 2017 11:10 - CONCLUSION: 1. There is a new left IJ line with tip in the superior vena cava. No pneumothorax or other acute complication. 2. Other lines and tubes unchanged, as above. 3. Mild consolidation and small effusion at the left lung base without significant change. Michele Oakley MD Chest X-Ray 09/11/17 0000 Signed Impressions: Service Date/Time: Monday, September 11, 2017 08:17 - CONCLUSION: Uncomplicated line placement. No evidence of pneumothorax. Lobo Elliott MD Chest X-Ray 09/11/17 0000 Signed Impressions: Service Date/Time: Monday, September 11, 2017 02:33 - CONCLUSION: Pneumoperitoneum which is new. Michele Coleman MD Tubes & Lines: Vas-Cath, [place] Tubes & Lines Comment TLC right IJ VC left IJ A line ileostomy RLQ BRANDEN drains x 2 abd Drip Comment Amiodarone, propofol, Levophed, vasopressin (Helena Malave) Physical Exam General Appearance: Well Developed, Comfortable Appearance Remarks intubated, sedated, not responding (Helena Malave) Throat Throat Exam: Oral Mucosa [place] & Moist (Helena Malave) Neck Neck Exam: Neck Supple (Helena Malave) Pulmonary Resp Exam: Breath Sounds Equal, No Distress, Decreased Bases Resp Remarks vented lung sounds (Helena Malave) Gastrointestinal/Abdomen GI Exam: Distended, Bowel Sounds Hypoactive GI Remarks abd binder in place, BRANDEN drain in place x2 ileostomy (Helena Malave [employer]ER) Genitourinary Remarks oliguric, urine is dark (Helena Malave) Musculoskeletal MS Exam: Joints Intact, Good Strength, Unable to Ambulate (Helena Malave) Integumentary Skin Exam: Warm, Dry, Intact Skin Remarks midabdominal incision (Helena Malave) Neurologic Neuro Exam: Unresponsive, Sedated (Helena Malave) Psychiatric Psych Exam: Appropriate Responses (Helena Malave) VTE Prophylaxis Device: SCDs (Helena Malave) Assessment/Plan Assessment Summary: JOSEF/Acute Renal Failure, Acute Tubular Necrosis, Hypotension Electrolyte Assessment: Hypocalcemia, Metabolic Acidosis Problem List: (1) JOSEF (acute kidney injury) ICD Codes: N17.9 - Acute kidney failure, unspecified Plan: His renal function is normal at baseline JOSEF due to ATN He has become anuric Vascath placed 09/11; CRRT / until 09/12. 5.8 L UF overall On pressors due to hemodynamic instability but requirement is less. Consider converting to IHD today, then continue per TTS schedule as needed Await renal recovery On 45% FiO2, follow fluid status Obtain labs per protocol Avoid nephrotoxic agents and dose medications appropriate to renal status. (2) S/P partial colectomy ICD Codes: Z90.49 - Acquired absence of other specified parts of digestive tract Plan: He has developed small bowel perforation after robotic surgery, s/p emergent ex lap with I&D 4/3 Management per surgery , has ileostomy that is draining He has hemodynamic instability, continue supportive care Currently NPO Prognosis is guarded. (3) Sepsis ICD Codes: A41.9 - Sepsis, unspecified organism Plan: Antibiotics include Zosyn, micafungin, and Flagyl Off IV vancomycin, was given one dose 4/4 monitor drug levels when appropriate ID is following (4) Hypocalcemia ICD Codes: E83.51 - Hypocalcemia Plan: Continue replacement Check 25 hydroxy level. (Heelna Malave) Plan patient was seen and examined. Decrease in pressor requirement. Will try intermittent HD. Agree with above assessment and plan. (Nish Zhu MD) Helena Malave Sep 13, 2017 10:06 Nish Zhu MD Sep 13, 2017 10:32
[2017-09-13 10:14] LABS: CALCIUM-PROTEIN CORRECTED 8.7 MG/DL (8.5-10.1); TOTAL PROTEIN 4.4 GM/DL (6.4-8.2)
--- NOTE | 2017-09-13 10:34 | HHI.PR ---
Subjective Remarks POD#6 s/p robotic ascending colectomy/POD#2 exploratory lap with diverting ileostomy Intubated, sedated Objective Vital Signs Date Time Temp Pulse Resp B/P (MAP) Pulse Ox O2 Delivery O2 Flow Rate FiO2 09/13/17 09:00 45 09/13/17 08:43 95 45 09/13/17 08:09 67 120/53 09/13/17 08:00 68 09/13/17 08:00 97.9 68 19 120/53 (75) 96 09/13/17 08:00 50 09/13/17 07:30 62 115/51 09/13/17 06:00 63 09/13/17 04:55 95 50 09/13/17 04:00 95 Mechanical Ventilator 50 09/13/17 04:00 40 09/13/17 04:00 66 09/13/17 04:00 98.1 65 19 134/59 (84) 96 09/13/17 02:00 70 09/13/17 01:26 93 40 09/13/17 00:56 73 107/50 09/13/17 00:25 73 104/48 09/13/17 00:00 93 Mechanical Ventilator 40 09/13/17 00:00 40 09/13/17 00:00 72 09/13/17 00:00 97.7 72 20 109/51 (70) 93 09/12/17 22:00 64 09/12/17 21:30 67 122/54 09/12/17 20:43 98 40 09/12/17 20:00 68 09/12/17 20:00 40 09/12/17 20:00 97.2 68 19 128/56 (80) 96 09/12/17 20:00 98 Mechanical Ventilator 40 09/12/17 18:15 68 111/51 09/12/17 17:34 71 106/49 09/12/17 17:00 74 100/48 09/12/17 16:00 98.4 72 18 105/50 (68) 93 09/12/17 16:00 72 09/12/17 15:15 71 92/44 09/12/17 15:00 75 100/48 09/12/17 14:29 95 40 09/12/17 12:00 66 09/12/17 12:00 97.0 66 20 109/51 (70) 99 09/12/17 12:00 99 40 I/O 09/12/17 09/12/17 09/12/17 09/13/17 09/13/17 09/13/17 07:00 15:00 23:00 07:00 15:00 23:00 Intake Total 2550 ml 6550 ml 5600 ml 870 ml 170 ml Output Total 3276 ml 220 ml 345 ml Balance -726 ml 6550 ml 5380 ml 525 ml 170 ml IV Total 2550 ml 6550 ml 5600 ml 870 ml 170 ml Output Urine Total 100 ml 50 ml 60 ml Stool Total 45 ml 50 ml 50 ml Gastric Drainage Total 25 ml 0 ml 150 ml Drainage Total 80 ml 120 ml 85 ml Hemodialysis 3026 ml # Bowel Movements 0 Result Diagram: 09/13/17 0530 09/13/17 0759 Objective Remarks Abdomen soft, distended, ileostomy pink Dressings c/d/i BRANDEN - serosanguinous VT RN right drain had a lot of odor yesterday, no significnat odor today Assessment and Plan Assessment and Plan transverse colon polyp/sb enterotomy labs pending NEURO - sedated CV - slight improvement, less pressors, NS rhythm, HR/BP improved PULM - stable on vent, down to 45% FiO2 GI - NG little output - KUB to check placment FEN - possible HD today, making scant urine ID - on Flagyl/Zosyn/ceftaroline/micafungin/vanco, - WBC's up - await ID input Heme - Plts down again, heparin stopped, history of low platelets Condition guarded Ivory Mcclellan MD Sep 13, 2017 10:34
--- NOTE | 2017-09-13 11:25 | RADRPT ---
EXAM DATE/TIME: 09/13/2017 10:52 [facility] COMPARISON: No previous studies available for comparison. INDICATIONS : Evaluate NG tube placement MEDICAL HISTORY : Myocardial infarction. Hypercholesterolemia. Thyroid disease. Tinnitus, HTN SURGICAL HISTORY : Coronary artery stent. Cardiac cath ENCOUNTER: Subsequent ACUITY: 4 - 6 days PAIN SCORE: Non-responsive. LOCATION: Abdomen FINDINGS: Single frontal view of the abdomen demonstrates a gastric tube in place with the tip and side port pr ojected in the expected location of the stomach in the left epigastric region. Bilateral Adolfo-Pra tt drains in place, skin saima and vertical midline incision, and balloon suction device in the rig ht upper quadrant. CONCLUSION: Gastric tube tip and side-port project over the stomach. Andrés Gardner MD on September 13, 2017 at 11:22 Board Certified Radiologist. This report was verified electronically.
--- NOTE | 2017-09-13 14:40 | HHI.CCPN ---
Subjective Remarks/Hospital Course 67-year-old very pleasant gentleman initially admitted for same day surgery for polyp removal. Due to some complications in the OR he required a colonoscopy during the surgery and now he is postop day 4 status post robotic ascending colectomy. He also required bilateral ureteral catheter placement by urology. Postoperatively he was given Toradol, received 12 doses. He is now on IVF, urine output is very low and he has cola colored urine. He continues to be profoundly acidotic and the x-ray today shows pneumoperitoneum that is new compared to previous images. The patient's surgeon Dr. Mcclellan is at the bedside and she is taking him immediately to operating room for a revision. The patient during my exam is not in distress. SUBJ 09/12: Remains very critical in septic shock. CVVH started yesterday. Remains on Levophed, dontrell-synephrine and and vasopressin plus stress dose steroids. s/p Small bowel enterotomy with leakage of small bowel contents, s/p diverting ileostomy. WBC up to 19.5, platelet count 64 today 09/13: Continues to be intubated remains critical but slight improvement in hemodynamics. Levophed is down to 12 mcg/m remains on vasopressin. Dontrell- Synephrine was restarted overnight currently at 60 mcg/m but will wean to DC. Platelet count further down now 45 most likely from sepsis and consumption. Check hit screen. CVVH filter clot transitioning to hemodialysis today. Appreciate ID consult. WBC count is up to 25.2 today Objective Vital Signs Date Time Temp Pulse Resp B/P (MAP) Pulse Ox O2 Delivery O2 Flow Rate FiO2 09/13/17 14:25 95 40 09/13/17 14:00 62 97/47 09/13/17 12:00 97.9 22 09/13/17 04:00 Mechanical Ventilator 09/11/17 03:38 8.00 Intake and Output 09/13/17 09/13/17 09/14/17 08:00 16:00 00:00 Intake Total 770 ml 620 ml Output Total 345 ml Balance 425 ml 620 ml Result Diagram: 09/13/17 0530 09/13/17 0759 Imaging Last 24 hours Impressions Chest X-Ray 09/11/17 0000 Signed Impressions: Service Date/Time: Monday, September 11, 2017 02:33 - CONCLUSION: Pneumoperitoneum which is new. Michele Coleman MD Objective Remarks GENERAL: Well-nourished, well-developed patient. Very critical condition, on 3 vasopressors, remains sedated with propofol SKIN: Warm and dry. see GI HEAD: Normocephalic. EYES: MARIO. ENT: Orotracheally intubated NECK: Supple, trachea midline. Bilateral IJ central lines CARDIOVASCULAR: Regular rate and rhythm without murmurs, gallops, or rubs. NSR on Amiodarone drip. Remains on Levophed, vasopressin, Dontrell-Synephrine infusions RESPIRATORY: Breath sounds equal bilaterally.. On PRVC AC GASTROINTESTINAL: Abdominal binder in place. ileostomy pink, Dressings c/d/i. BRANDEN x2 with serosanguineous output MUSCULOSKELETAL: No cyanosis, or edema. NEURO EXAM: GCS: Intubated heavily sedated, nos spontaneous eye opening. On sedation hold spontaneously moves extremities A/P Assessment and Plan Neuro: -Propofol for Sedation and vent synchrony -Fentanyl gtt for pain control -No sedation medication until shock, sepsis is improved Resp Acute hypoxemic respiratory failure -PRVC/AC, ventilator bundle -Head of the bed elevation to 30, DuoNeb every 6 hours as needed -No ventilator weaning due to acute severe refractory shock CVS: Severe septic shock Lactic acidosis A fib with RVR, now NSR -Aggressively fluid resuscitated -Currently remains on Levophed 12 mcg/min, Dontrell-Synephrine 60 mcg/min, vasopressin 0.04 international units to maintain map above 60 -Wean to DC Dontrell-Synephrine first -Hold all home antihypertensives (metoprolol, Norvasc) -Continue Amiodarone, Cannot anticoagulate due to recent surgery and thrombocytopenia /Endo: Acute kidney failure Metabolic acidosis -Most likely secondary to ATN/septic shock -Nephrology Dr. Zhu following, CVVH started 09/11/17, transition to intermittent hemodialysis today -Discontinued bicarbonate infusion as the patient is on CVVH GI/ID Small bowel enterotomy with leakage of small bowel contents, status post ex lap s/p diverting ileostomy POD 2 Peritonitis with septic shock -Status post ascending colectomy 09/07 pod 6 -status post ex lap irrigation and diverting ileostomy for small bowel perforation pod2 -Continue Flagyl, Zosyn, Diflucan and vancomycin. Teflaro added by ID Dr. Orozco -Post op Management per Dr. Mcclellan general surgery -Cultures negative to date HEME: Thrombocytopenia -Monitor CBC, coags -Thrombocytopenia secondary to sepsis, DIC -Holding sq Heparin, check HIT screen DVT GI prophylaxis -Luis M's and SCDs -Subcu heparin-hold due to thrombocytopenia -[place] Critical Care: The total critical care time was 45 minutes. Time to perform other separately billable procedures was not included in the critical care time. Remains critical with guarded prognosis due to refractory septic shock and multi organ failure. updated 09/11/17 Eileen Bautista MD Sep 13, 2017 14:40
--- NOTE | 2017-09-13 15:06 | HHI.IDPN ---
Subjective Subjective Remarks is a 67 y/o CM with PMHx significant for CAD, s/p PCI and stents. He was repeatedly diagnosed with sessile polyp and underwent exploratory laparoscopy with robotic takedown of splenic flexure, colonoscopy with tattooing and robotic ascending colectomy on 09/07/17 by . Reportedly, the urine output was low and urology was consulted when despite IVF urine output did not increase. Patient was seen by and underwent cystoscopy and bilateral ureteral catheter insertion with 500 cc of urine obtained. During the hospital stay patient subsequently had abdominal distention and despite NG tube to suction continued to have worsening distention and discomfort. A KUB done earlier on the day of CT on 09/11/2017 was negative for free air but subsequent imaging showed free air so patient was emergently taken to the OR by . Patient was found to have a small bowel defect and large amounts of of bowel contents were visible in peritoneum per op note. Critical Care was consulted and patient is currently being treated for Septic Shock with multiple pressors, IVF boluses given yday. He had low urine output and Nephrology is on the case and CVVHD initiated. Patient had issues with clotting of access line so CVVHD has been interrupted off and on. Patient is currently intubated on a ventilator. Not much resp secretions. Ileostomy output ok. Platelets have been low but no obvious bleeding from any sites. Patient remains sedated on vent. Patient has been started on empiric antibiotics Zosyn IV, Vanco IV x 1 dose, Flagyl IV, Micafungin IV. Left IJ Vascath placed on 09/11/2017 ID consulted for evaluation and Mment of Septic Shock, Secondary peritonitis. Overnight events reviewed. Levophed down to 17 mics, Vasopressin requirements requirements decreased overnight. On CVVHD Platelets low again No fevers No rash No diarrhea Antibiotics Zosyn IV Micafungin IV Lines Line sites with no e.o infection Past Medical History reviewed Allergies: Coded Allergies: No Known Allergies (Unverified Allergy, Unknown, 09/07/17) Objective . Vital Signs Date Time Temp Pulse Resp B/P (MAP) Pulse Ox O2 Delivery O2 Flow Rate FiO2 09/13/17 14:25 95 40 09/13/17 14:15 62 95/47 09/13/17 14:00 62 97/47 4/5/18 12:40 64 95/49 4/5/18 12:00 97.9 64 22 103/51 (68) 94 4/18 12:00 64 4//18 12:00 40 4/18 11:45 64 102/49 4//18 11:38 94 40 4/18 10:15 64 112/54 4//18 09:00 45 4/18 08:43 95 45 4//18 08:09 67 120/53 4//18 08:00 68 4//18 08:00 97.9 68 19 120/53 (75) 96 18 08:00 50 18 07:30 62 115/51 418 06:00 63 /10/26 04:55 95 50 /18 04:00 95 Mechanical Ventilator 50 09/13/17 04:00 40 09/13/17 04:00 66 09/13/17 04:00 98.1 65 19 134/59 (84) 96 09/13/17 02:00 70 4/18 01:26 93 40 /18 00:56 73 107/50 4//18 00:25 73 104/48 4/18 00:00 93 Mechanical Ventilator 40 09/13/17 00:00 40 09/13/17 00:00 72 4//18 00:00 97.7 72 20 109/51 (70) 93 18 22:00 64 18 21:30 67 122/54 4//18 20:43 98 40 4/18 20:00 68 4//18 20:00 40 4//18 20:00 97.2 68 19 128/56 (80) 96 18 20:00 98 Mechanical Ventilator 40 /18 18:15 68 111/51 4//18 17:34 71 106/49 4//18 17:00 74 100/48 4//18 16:00 98.4 72 18 105/50 (68) 93 18 16:00 72 /18 15:15 71 92/44 4/5/18 4//18 4//18 15:00 23:00 07:00 Intake Total 620 ml Balance 620 ml IV Total 620 ml . Laboratory Tests Test 09/12/17 08:10 09/13/17 05:30 White Blood Count 19.4 TH/MM3 25.2 TH/MM3 Red Blood Count 3.64 MIL/MM3 3.35 MIL/MM3 Hemoglobin 11.0 GM/DL 10.2 GM/DL Hematocrit 32.2 % 29.7 % Mean Corpuscular Volume 88.5 FL 88.5 FL Mean Corpuscular Hemoglobin 30.3 PG 30.5 PG Mean Corpuscular Hemoglobin Concent 34.2 % 34.4 % Red Cell Distribution Width 14.8 % 14.5 % Platelet Count 64 TH/MM3 45 TH/MM3 Mean Platelet Volume 8.5 FL 9.0 FL Neutrophils (%) (Auto) 93.6 % 92.3 % Lymphocytes (%) (Auto) 3.1 % 2.2 % Monocytes (%) (Auto) 3.0 % 5.4 % Eosinophils (%) (Auto) 0.1 % 0.0 % Basophils (%) (Auto) 0.2 % 0.1 % Neutrophils # (Auto) 18.2 TH/MM3 23.2 TH/MM3 Lymphocytes # (Auto) 0.6 TH/MM3 0.6 TH/MM3 Monocytes # (Auto) 0.6 TH/MM3 1.4 TH/MM3 Eosinophils # (Auto) 0.0 TH/MM3 0.0 TH/MM3 Basophils # (Auto) 0.0 TH/MM3 0.0 TH/MM3 CBC Comment AUTO DIFF AUTO DIFF Differential Total Cells Counted 100 100 Neutrophils % (Manual) 47 % 63 % Band Neutrophils % 30 % 34 % Lymphocytes % 1 % Monocytes % 7 % 3 % Neutrophils # (Manual) 17.8 TH/MM3 24.4 TH/MM3 Metamyelocytes 8 % Myelocytes 6 % Promyelocytes 1 % Differential Comment FINAL DIFF MANUAL FINAL DIFF MANUAL Toxic Granulation 2+ 2+ Toxic Vacuolation PRESENT Platelet Estimate LOW LOW Platelet Morphology Comment NORMAL NORMAL Ovalocytes 1+ Nucleated Red Blood Cells 1 /100 WBC Red Cell Morphology Comment NORMAL Laboratory Tests Test 09/12/17 05:30 09/12/17 08:10 09/12/17 13:49 09/12/17 20:30 Phosphorus Level 4.4 MG/DL 4.4 MG/DL 4.6 MG/DL 4.1 MG/DL Blood Urea Nitrogen 51 MG/DL 47 MG/DL 50 MG/DL Creatinine 4.47 MG/DL 3.88 MG/DL 3.88 MG/DL Random Glucose 170 MG/DL 159 MG/DL 135 MG/DL Total Protein 4.1 GM/DL 4.2 GM/DL Albumin 1.1 GM/DL 1.3 GM/DL 1.2 GM/DL Calcium Level 6.0 MG/DL 6.7 MG/DL 6.6 MG/DL Magnesium Level 1.4 MG/DL 2.0 MG/DL 1.8 MG/DL Alkaline Phosphatase 44 U/L Aspartate Amino Transf (AST/SGOT) 59 U/L Alanine Aminotransferase (ALT/SGPT) 16 U/L Total Bilirubin 2.4 MG/DL Sodium Level 137 MEQ/L 135 MEQ/L 135 MEQ/L Potassium Level 4.3 MEQ/L 4.0 MEQ/L 3.9 MEQ/L Chloride Level 101 MEQ/L 99 MEQ/L 98 MEQ/L Carbon Dioxide Level 23.3 MEQ/L 26.4 MEQ/L 26.5 MEQ/L Anion Gap 13 MEQ/L 10 MEQ/L 11 MEQ/L Estimat Glomerular Filtration Rate 13 ML/MIN 16 ML/MIN 16 ML/MIN Protein Corrected Calcium 8.2 MG/DL Test 09/13/17 00:10 09/13/17 02:25 09/13/17 05:30 09/13/17 07:59 Blood Urea Nitrogen 49 MG/DL 52 MG/DL 56 MG/DL Creatinine 3.80 MG/DL 3.99 MG/DL 4.34 MG/DL Random Glucose 134 MG/DL 146 MG/DL 147 MG/DL Total Protein 4.2 GM/DL 4.3 GM/DL 4.4 GM/DL Albumin 1.1 GM/DL 1.1 GM/DL 1.1 GM/DL Calcium Level 6.1 MG/DL 6.9 MG/DL 7.2 MG/DL Phosphorus Level 3.9 MG/DL 3.9 MG/DL 4.5 MG/DL Magnesium Level 1.8 MG/DL 1.9 MG/DL 2.0 MG/DL Sodium Level 136 MEQ/L 136 MEQ/L 135 MEQ/L Potassium Level 3.9 MEQ/L 3.8 MEQ/L 3.9 MEQ/L Chloride Level 98 MEQ/L 97 MEQ/L 97 MEQ/L Carbon Dioxide Level 26.5 MEQ/L 27.3 MEQ/L 26.3 MEQ/L Anion Gap 12 MEQ/L 12 MEQ/L 12 MEQ/L Estimat Glomerular Filtration Rate 16 ML/MIN 15 ML/MIN 14 ML/MIN Protein Corrected Calcium 7.5 MG/DL 8.4 MG/DL 8.7 MG/DL 25-Hydroxy Vitamin D Total 12.6 ng/ML Microbiology Date/Time Source Procedure Growth Status 09/13/17 01:35 Blood Peripheral Aerobic Blood Culture Pending Received 09/13/17 01:35 Blood Peripheral Anaerobic Blood Culture Pending Received 09/13/17 01:30 Blood Peripheral Aerobic Blood Culture Pending Received 09/13/17 01:30 Blood Peripheral Anaerobic Blood Culture Pending Received 09/13/17 10:00 Sputum Endotracheal Gram Stain - Final Resulted 09/13/17 10:00 Sputum Endotracheal Sputum Culture Pending Resulted Imaging Last Impressions Chest X-Ray 09/13/17 0600 Signed Impressions: Service Date/Time: September 05:23 - CONCLUSION: Slight interval worsening in aeration. Michele Coleman MD Abdomen X-Ray 09/13/17 0000 Signed Impressions: Service Date/Time: September 10:52 - CONCLUSION: Gastric tube tip and side-port project over the stomach. Andrés Gardner MD Renal Ultrasound 09/10/17 0000 Signed Impressions: Service Date/Time: Sunday, September 10, 2017 15:17 - CONCLUSION: No evidence of mass or hydronephrosis. Andrés Gardner MD Physical Exam GENERAL: This is a well-nourished, well-developed patient, in no apparent distress. SKIN: No rashes, ecchymoses or lesions. Cool and dry. HEAD: Atraumatic. Normocephalic. No temporal or scalp tenderness. EYES: Pupils equal round and reactive. No scleral icterus. No injection or drainage. ENT: Intubated. NECK: Trachea midline. Supple, nontender, no meningeal signs. CARDIOVASCULAR: HS audible. RESPIRATORY: Clear to auscultation. Breath sounds equal bilaterally but decreased in the bases. GASTROINTESTINAL: Abdomen soft, Ostomy bag with liquid stool. MUSCULOSKELETAL: Extremities without clubbing, cyanosis. Pedal edema noted. No joint tenderness, effusion, or edema noted. No calf tenderness. Negative Homans sign bilaterally. NEUROLOGICAL: Sedated Psych could not be assessed IV line sites with no e.o infection. Assessment & Plan Remarks Severe Sepsis with Shock Secondary peritonitis due to small bowel perforation s/p Enterostomy and washout s/p robotic splenic flexure takedown on 09/07/17 s/p cystoscopy with bilateral ureteroscopies on 09/07/2017 Thrombocytopenia: sepsis, DIC Acute renal failure: prerenal, sepsis. On CVVHD. Recs: Continue Zosyn IV(pressure requirements gone down, Clinically ok for now). If pressor requirements go up consider Meropenem IV to cover for MDRO Risk for MDRO is low as antibiotic naive prior to this admission. No recent hospitalizations prior to the planned Robotic surgery. Start Teflaro IV (ASP: for MRSA lung coverage, cannot use Zyvox, Vanco IV or dapto) Continue Micafungin IV Continue Flagyl IV for double anaerobic coverage while septic. Follow cultures Follow clinically. Klever MAGUIRE Critical thinking, images and meds reviewed. Lu Orozco MD Sep 13, 2017 15:06
[2017-09-13] MEDS: GENTAMICIN SULFATE 20 MG/2 ML VIAL OTHER PRN (15:34)
[2017-09-13] MEDS: HEPARIN SODIUM - IV 10,000 UNITS/10 ML VIAL PRN (15:34)
[2017-09-13] MEDS: ALBUMIN 25% INJ 100 ML IV SCH (15:43)
--- NOTE | 2017-09-13 16:58 | PD.WCN.NOT ---
Wound Consult Description: New ostomy teaching ordered by Communicated with: RN Recommendation: Monitor ileostomy color and output Q8H Additional Information: Patient seen on [address] [place] [id number] for ostomy assessment. Ostomy Type: Ileostomy Date of Surgery: Sep 11, 2017 Educated patient on: Patient intubated/sedated. Additional information Patient seen on [address] [place] [id number] for ileostomy assessment. Pouching system is noted underneath the abdominal binder and lifted slightly for visualization of stoma. Stoma is red, moist, round, moderately protruding, functioning with dark green liquid effluent noted in pouch that was not emptied by principal technical writer. No teaching done today. Patient has no family members at bedside and patient is sedated/ intubated. Marie Schroeder [facility] Sep 13, 2017 16:58
[2017-09-13 17:18] LABS: ALBUMIN 1.6 GM/DL (3.4-5.0); BICARBONATE 28.2 MEQ/L (21.0-32.0); CALCIUM 7.8 MG/DL (8.5-10.1); CREATININE 3.21 MG/DL (0.60-1.30); PHOSPHORUS 3.6 MG/DL (2.5-4.9)
[2017-09-13] MEDS: MICAFUNGIN INJ 150 MG in SODIUM CHLORIDE 0.9% INJ 100 ML IV SCH (18:00)
--- NOTE | 2017-09-13 19:38 | ECHRPT ---
Indication: Paroxysmal atrial fibrillation CONCLUSIONS The left ventricular systolic function is normal with an estimated ejection fraction in the range o f 50-55%. Normal left ventricular size. Wall thickness is normal. No definite regional wall motion abnormaliti es. There is mild tricuspid regurgitation. The estimated pulmonary arterial pressure is 44 mmHg. BP: / HR: Rhythm: Sinus MEASUREMENTS (Male / Female) Normal Values Technical Quality:Fair 2D ECHO LV Diastolic Diameter PLAX 4.2 cm 4.2 - 5.9 / 3.9 - 5.3 cm LV Systolic Diameter PLAX 3.3 cm IVS Diastolic Thickness 1.1 cm 0.6 - 1.0 / 0.6 - 0.9 cm LVPW Diastolic Thickness 1.1 cm 0.6 - 1.0 / 0.6 - 0.9 cm LV Relative Wall Thickness 0.5 LVOT Diameter 2.2 cm M-MODE Aortic Root Diameter MM 3.9 cm LA Systolic Diameter MM 4.0 cm LA Ao Ratio MM 1.0 AV Cusp Separation MM 2.1 cm DOPPLER AV Peak Velocity 121.0 cm/s AV Peak Gradient 5.9 mmHg LVOT Peak Velocity 83.9 cm/s LVOT Peak Gradient 2.8 mmHg AV Area Cont Eq pk 2.6 cm Mitral E Point Velocity 54.3 cm/s Mitral A Point Velocity 62.2 cm/s Mitral E to A Ratio 0.9 LV E' Lateral Velocity 9.2 cm/s Mitral E to LV E' Lateral Ratio 5.9 LV E' Septal Velocity 9.6 cm/s Mitral E to LV E' Septal Ratio 5.7 TR Peak Velocity 296.0 cm/s TR Peak Gradient 35.0 mmHg Right Atrial Pressure 10.0 mmHg Pulmonary Artery Systolic Pressu 45.0 mmHg Right Ventricular Systolic Press 45.0 mmHg PV Peak Velocity 159.0 cm/s PV Peak Gradient 10.1 mmHg FINDINGS LEFT VENTRICLE The left ventricular systolic function is normal with an estimated ejection fraction in the range o f 50-55%. Normal left ventricular size. Wall thickness is normal. No definite regional wall motion abnormaliti es. RIGHT VENTRICLE Normal right ventricular size and systolic function. LEFT ATRIUM The left atrial size is upper limits of normal. RIGHT ATRIUM The right atrial size is normal. ATRIAL SEPTUM Normal atrial septal thickness without atrial level shunting by limited color doppler interrogation. AORTA The aortic root and proximal ascending aorta are normal in size on limited imaging. MITRAL VALVE Structurally normal mitral valve. No mitral valve stenosis or regurgitation. AORTIC VALVE Trileaflet aortic valve. No aortic valve stenosis or regurgitation. TRICUSPID VALVE There is mild tricuspid regurgitation. The estimated pulmonary arterial pressure is 44 mmHg. PULMONARY VALVE No pulmonary valve regurgitation or stenosis. VESSELS The inferior vena cava is normal in size. PERICARDIUM No pericardial effusion. Anthony Lindsay MD (Electronically Signed) Final Date:13 September 2017 19:37
[2017-09-13] MEDS: PIPERACIL-TAZO 2.25 GM PREMIX 50 ML IV SCH (20:47)
[2017-09-13 21:53] LABS: ALBUMIN 1.4 GM/DL (3.4-5.0); BICARBONATE 27.8 MEQ/L (21.0-32.0); CREATININE 3.94 MG/DL (0.60-1.30); MAGNESIUM 2.1 MG/DL (1.5-2.5); PHOSPHORUS 4.4 MG/DL (2.5-4.9)
[2017-09-14] VITALS (20 sets, daily range): BP systolic 110–142; BP diastolic 46–57; PULSE 64–78; RESP 16–20; TEMP 97.2–98.6; O2SAT 92–98
[2017-09-14] MEDS: CALCIUM GLUCONATE INJ 2 GM in DEXTROSE 5% IN WATER 100ML INJ 100 ML IV SCH ×2
[2017-09-14] MEDS: PIPERACIL-TAZO 2.25 GM PREMIX 50 ML IV SCH ×4 (02:00→21:29)
[2017-09-14 03:14] LABS: ALBUMIN 1.3 GM/DL (3.4-5.0); BICARBONATE 27.3 MEQ/L (21.0-32.0); CALCIUM 7.5 MG/DL (8.5-10.1); CREATININE 4.17 MG/DL (0.60-1.30); MAGNESIUM 2.1 MG/DL (1.5-2.5); PHOSPHORUS 4.6 MG/DL (2.5-4.9)
[2017-09-14] MEDS: ALBUMIN 25% INJ 100 ML IV SCH (04:00)
[2017-09-14 04:49] LABS: AUTOMATED NEUTROPHIL # 13.9 TH/MM3 (1.8-7.7); BASOPHIL % 0.1 % (0.0-2.0); HEMATOCRIT 25.9 % (39.0-51.0); HEMOGLOBIN 8.8 GM/DL (13.0-17.0); LYMPH % 4.1 % (9.0-44.0); LYMPHOCYTE # 0.6 TH/MM3 (1.0-4.8); MEAN CELL VOLUME 88.3 FL (80.0-100.0); MEAN PLATELET VOLUME 9.5 FL (7.0-11.0); MONOCYTE # 0.6 TH/MM3 (0-0.9); NEUT % 91.8 % (16.0-70.0); PLATELET COUNT 31 TH/MM3 (150-450); RED BLOOD COUNT 2.93 MIL/MM3 (4.50-5.90); RED CELL DISTRIBUTION WIDTH 14.4 % (11.6-17.2); WHITE BLOOD COUNT 15.1 TH/MM3 (4.0-11.0)
[2017-09-14] MEDS: PROPOFOL 1000 MG/100 ML INJ 100 ML IV PRN ×4 (05:20→21:26)
[2017-09-14] MEDS: fentaNYL DRIP 250 ML IV PRN (05:20)
[2017-09-14] MEDS: HYDROCORTISONE SOD SUCCINATE 100 MG VIAL IV SCH ×3 (05:40→21:27)
[2017-09-14] MEDS: metroNIDAZOLE 500 MG INJ 100 ML IV SCH ×3 (05:40→21:27)
--- NOTE | 2017-09-14 06:52 | RADRPT ---
EXAM DATE/TIME: 09/14/2017 03:40 [place] COMPARISON: CHEST SINGLE AP, September 13, 2017, 5:23. INDICATIONS : Evaluate for respiratory disease. MEDICAL HISTORY : Myocardial infarction. Hypercholesterolemia. Thyroid disease. Tinnitus. SURGICAL HISTORY : Coronary artery stent. Cardiac cath. ENCOUNTER: Subsequent ACUITY: 4 - 6 days PAIN SCORE: Non-responsive. LOCATION: chest FINDINGS: Endotracheal tube, nasogastric tube, right IJ central venous catheter, and left IJ central venous cat heter remain in place. Persistent left lower lobe atelectasis versus consolidation and mild hazy bila teral lower lung zone predominant opacity. No significant interval change. CONCLUSION: No significant interval change. Persistent left lower lobe atelectasis versus consolidation and mild hazy bilateral lung opacity. Valeriy Gagnon MD on September 14, 2017 at 6:47 Board Certified Radiologist. This report was verified electronically.
--- NOTE | 2017-09-14 07:51 | PD.CARD.PN ---
Subjective Subjective Remarks Intubated. Sedated. Objective Medications Item Value Date Time Vasopressin 40 100 ml @ 1.5 mls/hr 09/11/17 1130 units/Dextrose TITRATE PRN/IV 09/12/17 2130 Amiodarone HCl 250 ml @ 33.33 mls/hr 09/11/17 1200 450 mg/Sodium .Q7H31M PRN/IV 09/13/17 1500 Chloride Current Medications Medications (Trade) Dose Ordered Sig/Emilee Route Start Time Stop Time Status Last Admin (Tylenol) 650 mg Q4H PRN PO 09/07/17 16:00 09/08/17 11:06 (Protonix Inj) 40 mg DAILY IVP 09/08/17 09:00 09/13/17 09:00 (Zofran Inj) 4 mg Q6H PRN IV PUSH 09/07/17 16:00 09/08/17 01:06 (Vasotec Inj) 1.25 mg Q4H PRN IV PUSH 09/07/17 16:00 Future Hold (Vasotec Inj) 2.5 mg Q6H PRN IV PUSH 09/07/17 16:00 Future Hold (Chloraseptic Wilmer) 1 lozenge UNSCH PRN BUCCAL 09/07/17 16:00 Potassium Chloride 100 ml @ 50 mls/hr UNSCH PRN IV 09/07/17 16:00 Potassium Chloride 100 ml @ 25 mls/hr UNSCH PRN IV-CENTRAL 09/07/17 16:00 (Heparin Inj) 5,000 units Q12H SQ 09/08/17 15:00 Future Hold 09/12/17 02:46 (Narcan Inj) 0.4 mg UNSCH PRN IV PUSH 09/07/17 16:00 (Benadryl Inj) 25 mg Q6H PRN IV PUSH 09/07/17 16:00 (Norvasc) 5 mg DAILY PO 09/08/17 09:00 Future Hold 09/10/17 09:50 (Toprol Xl) 25 mg DAILY PO 09/08/17 09:00 Future Hold 09/10/17 09:50 (Dilaudid Pf Inj) 0.2 mg Q3H PRN IV 09/08/17 21:45 09/10/17 23:32 (Mylicon Chew) 80 mg Q6H PRN PO 09/08/17 21:45 4/1/18 12:07 (Hurricaine 20% Oral Spr) 1 spray Q6H PRN OROPHARYNG 09/09/17 13:45 09/09/17 21:23 ([place] 5-325 Mg) 1 tab Q6H PRN PO 09/10/17 15:00 09/10/17 15:54 ([place] 5-325 Mg) 2 tab Q6H PRN PO 09/10/17 15:00 09/10/17 22:13 (Benadryl Inj) 25 mg HS PRN IV PUSH 09/10/17 20:15 Metronidazole 100 ml @ 100 mls/hr Q8H IV 09/11/17 14:00 09/14/17 05:40 Sodium Chloride 1,000 ml @ 0 mls/hr Q0M PRN OTHER 09/11/17 09:25 (Heparin Inj) 8,000 units UNSCH PRN IV FLUSH 09/11/17 09:30 Sodium Chloride 1,000 ml @ 200 mls/hr Q5H PRN IV 09/11/17 09:25 Sodium Chloride 1,000 ml @ 0 mls/hr Q0M PRN OTHER 09/11/17 09:25 (Mannitol Inj) 12.5 gm UNSCH PRN IV 09/11/17 09:30 Albumin Human 100 ml @ 60 mls/hr UNSCH PRN IV 09/11/17 09:30 (NS Flush) 5 ml UNSCH PRN IV FLUSH 09/11/17 09:30 (Heparin Inj) UNSCH PRN .XX 09/11/17 09:30 09/13/17 15:34 (Gentamicin Inj) 20 mg UNSCH PRN OTHER 09/11/17 09:30 09/13/17 15:34 (Zofran Inj) 4 mg UNSCH PRN IV PUSH 09/11/17 09:30 (Tylenol) 650 mg UNSCH PRN PO 09/11/17 09:30 (Benadryl) 25 mg UNSCH PRN PO 09/11/17 09:30 (Nitrostat Sl) 0.4 mg UNSCH PRN SL 09/11/17 09:30 (Catapres) 0.1 mg UNSCH PRN PO 09/11/17 09:30 (Gelfoam 12 Mm/7 Mm Top) 1 foam UNSCH PRN TOP 09/11/17 09:30 Vasopressin 40 units/Dextrose 100 ml @ 1.5 mls/hr TITRATE PRN IV 09/11/17 11:30 09/12/17 21:30 Amiodarone HCl 450 mg/Sodium Chloride 250 ml @ 33.33 mls/ hr Q7H31M PRN IV 09/11/17 12:00 09/13/17 15:00 Propofol 100 ml @ 2.895 mls/ hr TITRATE PRN IV 09/11/17 12:45 09/14/17 05:20 Sodium Chloride 1,000 ml @ 0 mls/hr UNSCH PRN OTHER 09/11/17 13:00 (KCl 40 Meq Premix Inj) *FOR DIALYSIS USE IN C... WITH DIALYSIS PRN .XX 09/11/17 13:00 Sodium Bicarbonate 75 meq/Sodium Chloride 1,075 ml @ 1,000 mls/hr Q1H5M OTHER 09/11/17 13:15 09/12/17 22:30 Phenylephrine HCl 80 mg/Dextrose 500 ml @ 15 mls/hr TITRATE PRN IV 09/11/17 16:45 09/12/17 07:00 (Brethine Inj) 1 mg UNSCH PRN SQ 09/11/17 16:45 (SoluCORTEF INJ) 100 mg Q8HR IV 09/11/17 22:00 09/14/17 05:40 Micafungin Sodium 150 mg/Sodium Chloride 100 ml @ 100 mls/hr Q24H IV 09/11/17 18:00 09/13/17 18:00 Norepinephrine Bitartrate 250 ml @ 7.5 mls/hr TITRATE PRN IV 09/11/17 18:30 09/13/17 11:45 Fentanyl Citrate 250 ml @ 5 mls/hr TITRATE PRN IV 09/12/17 11:00 09/14/17 05:20 Ceftaroline Fosamil 600 mg/ Sodium Chloride 100 ml @ 100 mls/hr Q12H IV 09/13/17 08:00 09/13/17 20:47 Albumin Human 100 ml @ 60 mls/hr Q12H IV 09/13/17 16:00 09/14/17 04:00 Piperacillin Sod/ Tazobactam Sod 50 ml @ 100 mls/hr Q6H IV 09/13/17 20:00 09/14/17 02:00 Vital Signs / I&O Vital Signs Date Time Temp Pulse Resp B/P (MAP) Pulse Ox O2 Delivery O2 Flow Rate FiO2 09/14/17 06:00 67 09/14/17 04:00 50 09/14/17 04:00 97.2 72 18 116/52 (73) 94 09/14/17 04:00 72 09/14/17 03:37 96 50 09/14/17 02:00 74 09/14/17 00:49 94 50 09/14/17 00:00 50 09/14/17 00:00 70 09/14/17 00:00 97.5 70 20 110/50 (70) 97 09/13/17 22:00 76 09/13/17 20:47 94 40 09/13/17 20:00 97.5 70 19 100/48 (65) 95 09/13/17 20:00 76 09/13/17 20:00 40 09/13/17 19:00 69 113/55 09/13/17 17:59 65 114/56 09/13/17 16:37 68 120/56 09/13/17 16:00 98.1 65 18 117/51 (73) 94 09/13/17 16:00 65 09/13/17 16:00 65 117/51 09/13/17 15:00 63 104/47 09/13/17 14:25 95 40 09/13/17 14:15 62 95/47 09/13/17 14:00 62 97/47 09/13/17 12:40 64 95/49 09/13/17 12:00 97.9 64 22 103/51 (68) 94 09/13/17 12:00 64 09/13/17 12:00 40 09/13/17 11:45 64 102/49 09/13/17 11:38 94 40 09/13/17 10:15 64 112/54 09/13/17 09:00 45 09/13/17 08:43 95 45 09/13/17 08:09 67 120/53 09/13/17 08:00 68 09/13/17 08:00 97.9 68 19 120/53 (75) 96 09/13/17 08:00 50 I/O 09/13/17 09/13/17 09/13/17 09/14/17 09/14/17 09/14/17 07:00 15:00 23:00 07:00 15:00 23:00 Intake Total 870 ml 870 ml 650 ml 220 ml Output Total 345 ml 3130 ml 105 ml Balance 525 ml 870 ml -2480 ml 115 ml IV Total 870 ml 870 ml 650 ml 220 ml Output Urine Total 60 ml 30 ml 40 ml Stool Total 50 ml 25 ml 15 ml Gastric Drainage Total 150 ml 0 ml 0 ml Drainage Total 85 ml 75 ml 50 ml Hemodialysis 3000 ml Physical Exam GENERAL: Well developed, well nourished. Intubated. Sedated. CHEST: Lungs clear to auscultation anteriorly. CARDIAC: Regular rate and rhythm without S3, S4, or murmur. ABDOMEN: Soft. No BS. EXTREMITIES: No clubbing, cyanosis. 1+ edema. Laboratory Laboratory Tests Test 09/13/17 07:59 09/13/17 16:27 09/13/17 17:04 09/13/17 20:43 Blood Urea Nitrogen 56 MG/DL 43 MG/DL 48 MG/DL Creatinine 4.34 MG/DL 3.21 MG/DL 3.94 MG/DL Random Glucose 147 MG/DL 122 MG/DL 132 MG/DL Total Protein 4.4 GM/DL Albumin 1.1 GM/DL 1.6 GM/DL 1.4 GM/DL Calcium Level 7.2 MG/DL 7.8 MG/DL 7.0 MG/DL Phosphorus Level 4.5 MG/DL 3.6 MG/DL 4.4 MG/DL Magnesium Level 2.0 MG/DL 2.0 MG/DL 2.1 MG/DL Sodium Level 135 MEQ/L 136 MEQ/L 135 MEQ/L Potassium Level 3.9 MEQ/L 3.8 MEQ/L 3.7 MEQ/L Chloride Level 97 MEQ/L 97 MEQ/L 97 MEQ/L Carbon Dioxide Level 26.3 MEQ/L 28.2 MEQ/L 27.8 MEQ/L Anion Gap 12 MEQ/L 11 MEQ/L 10 MEQ/L Estimat Glomerular Filtration Rate 14 ML/MIN 19 ML/MIN 15 ML/MIN Protein Corrected Calcium 8.7 MG/DL Test 09/14/17 02:35 09/14/17 04:15 Blood Urea Nitrogen 57 MG/DL Creatinine 4.17 MG/DL Random Glucose 141 MG/DL Albumin 1.3 GM/DL Calcium Level 7.5 MG/DL Phosphorus Level 4.6 MG/DL Magnesium Level 2.1 MG/DL Sodium Level 136 MEQ/L Potassium Level 3.8 MEQ/L Chloride Level 98 MEQ/L Carbon Dioxide Level 27.3 MEQ/L Anion Gap 11 MEQ/L Estimat Glomerular Filtration Rate 14 ML/MIN White Blood Count 15.1 TH/MM3 Red Blood Count 2.93 MIL/MM3 Hemoglobin 8.8 GM/DL Hematocrit 25.9 % Mean Corpuscular Volume 88.3 FL Mean Corpuscular Hemoglobin 30.0 PG Mean Corpuscular Hemoglobin Concent 34.0 % Red Cell Distribution Width 14.4 % Platelet Count 31 TH/MM3 Mean Platelet Volume 9.5 FL Neutrophils (%) (Auto) 91.8 % Lymphocytes (%) (Auto) 4.1 % Monocytes (%) (Auto) 4.0 % Eosinophils (%) (Auto) 0.0 % Basophils (%) (Auto) 0.1 % Neutrophils # (Auto) 13.9 TH/MM3 Lymphocytes # (Auto) 0.6 TH/MM3 Monocytes # (Auto) 0.6 TH/MM3 Eosinophils # (Auto) 0.0 TH/MM3 Basophils # (Auto) 0.0 TH/MM3 CBC Comment AUTO DIFF Imaging Last 24 hours Impressions Chest X-Ray 09/14/17 0600 Signed Impressions: Service Date/Time: Thursday, September 14, 2017 03:40 - CONCLUSION: No significant interval change. Persistent left lower lobe atelectasis versus consolidation and mild hazy bilateral lung opacity. Valeriy Gagnon MD Assessment and Plan Problem List: (1) Paroxysmal atrial fibrillation ICD Codes: I48.0 - Paroxysmal atrial fibrillation Status: Acute Plan: Remains in NSR on IV Amiodarone. Thromboembolic risk overall low. Continue same. Daily baby aspirin when OK from surgical standpoint. Dr. Carrillo to see PRN over the weekend. (2) CAD (coronary artery disease) ICD Codes: I25.10 - CAD (coronary artery disease) Status: Chronic Plan: Stable CAD status. No recent angina. Hemodynamically improving, requiring less pressor support. Normal EF and wall motion on echo this admission. Code Status full code Problem Qualifiers (1) CAD (coronary artery disease): Qualified Codes: I25.10 - Atherosclerotic heart disease of [place] coronary artery without angina pectoris Anthony Lindsay MD Sep 14, 2017 07:51
[2017-09-14 08:18] LABS: ALBUMIN 1.4 GM/DL (3.4-5.0); BICARBONATE 26.5 MEQ/L (21.0-32.0); CALCIUM 7.4 MG/DL (8.5-10.1); CREATININE 4.27 MG/DL (0.60-1.30); MAGNESIUM 2.2 MG/DL (1.5-2.5); PHOSPHORUS 4.9 MG/DL (2.5-4.9)
[2017-09-14 08:24] LABS: BANDS 21 % (0-6); LYMPHOCYTES 2 % (9-44); METAMYELOCYTES 1 % (0-1); MONOCYTES 2 % (0-8); NEUTROPHIL # MANUAL DIFF 14.5 TH/MM3 (1.8-7.7); POLYS (SEG NEUTROPHILS) 74 % (16-70)
[2017-09-14 08:25] LABS: TOXIC GRANULATION 2+ (NORMAL)
[2017-09-14] MEDS: CEFTAROLINE INJ 600 MG in SODIUM CHLORIDE 0.9% INJ 100 ML IV SCH (08:37)
[2017-09-14 08:39] LABS: TOTAL PROTEIN 4.4 GM/DL (6.4-8.2)
[2017-09-14] MEDS: VASOPRESSIN 40 U/D5W 100 ML Titrate IV PRN ×2 (08:40)
[2017-09-14] MEDS: PANTOPRAZOLE SODIUM 40 MG VIAL IVP SCH (08:41)
--- NOTE | 2017-09-14 09:14 | HHI.CCPN ---
Subjective Remarks/Hospital Course 67-year-old very pleasant gentleman initially admitted for same day surgery for polyp removal. Due to some complications in the OR he required a colonoscopy during the surgery and now he is postop day 4 status post robotic ascending colectomy. He also required bilateral ureteral catheter placement by urology. Postoperatively he was given Toradol, received 12 doses. He is now on IVF, urine output is very low and he has cola colored urine. He continues to be profoundly acidotic and the x-ray today shows pneumoperitoneum that is new compared to previous images. The patient's surgeon Dr. Mcclellan is at the bedside and she is taking him immediately to operating room for a revision. The patient during my exam is not in distress. 09/12: Remains very critical in septic shock. CVVH started yesterday. Remains on Levophed, dontrell-synephrine and and vasopressin plus stress dose steroids. s/p Small bowel enterotomy with leakage of small bowel contents, s/p diverting ileostomy. WBC up to 19.5, platelet count 64 today 09/13: Continues to be intubated remains critical but slight improvement in hemodynamics. Levophed is down to 12 mcg/m remains on vasopressin. Dontrell- Synephrine was restarted overnight currently at 60 mcg/m but will wean to DC. Platelet count further down now 45 most likely from sepsis and consumption. Check hit screen. CVVH filter clot transitioning to hemodialysis today. Appreciate ID consult. WBC count is up to 25.2 today Subjective 09/14: Afebrile. Currently only on vasopressin to maintain mean arterial pressure greater than equal to 65. Norepinephrine is been discontinued along with Dontrell-Synephrine. Platelets currently 31. LDH, haptoglobin and peripheral smear pending. No bleeding apparent. Objective Vital Signs Date Time Temp Pulse Resp B/P (MAP) Pulse Ox O2 Delivery O2 Flow Rate FiO2 09/14/17 08:40 70 120/52 09/14/17 07:53 92 50 09/14/17 04:00 97.2 18 09/13/17 04:00 Mechanical Ventilator 09/11/17 03:38 8.00 Intake and Output 09/14/17 09/14/17 09/15/17 08:00 16:00 00:00 Intake Total 120 ml Output Total 105 ml Balance 15 ml Result Diagram: 09/14/17 0415 09/14/17 0415 Other Results Microbiology Date/Time Source Procedure Growth Status 09/13/17 01:35 Blood Peripheral Aerobic Blood Culture Pending Received 09/13/17 01:35 Blood Peripheral Anaerobic Blood Culture Pending Received 09/13/17 10:00 Sputum Endotracheal Gram Stain - Final Resulted 09/13/17 10:00 Sputum Endotracheal Sputum Culture Pending Resulted Imaging Last Impressions Chest X-Ray 09/14/17 0600 Signed Impressions: Service Date/Time: Thursday, September 14, 2017 03:40 - CONCLUSION: No significant interval change. Persistent left lower lobe atelectasis versus consolidation and mild hazy bilateral lung opacity. Valeriy Gagnon MD Abdomen X-Ray 09/13/17 0000 Signed Impressions: Service Date/Time: September 10:52 - CONCLUSION: Gastric tube tip and side-port project over the stomach. Andrés Gardner MD Renal Ultrasound 09/10/17 0000 Signed Impressions: Service Date/Time: Sunday, September 10, 2017 15:17 - CONCLUSION: No evidence of mass or hydronephrosis. Andrés Gardner MD Objective Remarks GENERAL: 67-year-old male currently orotracheally intubated SKIN: Warm and dry. see GI HEAD: Normocephalic. EYES: MARIO. EOMI. MMM. NG ENT: Orotracheally intubated. NG and left nares. NECK: Supple, trachea midline. Right IJ cordis with dual-lumen catheter is clean dry and intact. Left IJ hemodialysis catheter is clean dry and intact CARDIOVASCULAR: Regular rate and rhythm without murmurs, gallops, or rubs. RESPIRATORY: Breath sounds equal bilaterally.. Currently on assist control GASTROINTESTINAL: Abdominal binder in place. ileostomy pink, Dressings c/d/i. BRANDEN x2 with serosanguineous output MUSCULOSKELETAL: With trace bilateral lower extremity edema NEURO EXAM: Arousable on the ventilator will follow commands. Moves all 4 extremities spontaneously. Urinary Catheter: Yes Assessment to: Continue Canela insert reason: Prolonged Immobilization Vascular Central Line Catheter: Yes Assessment to: Continue Line: Central Venous Catheter Side: Left Location: Internal, Jugular A/P Assessment and Plan Neuro: Toxic metabolic encephalopathy Patient is currently on a propofol drip at 30 mcg/kg/min/fentanyl drip at 50 mcg /h for sedation/analgesia while intubated Goal of RA SS -2 Daily sedation vacation Resp Acute hypoxemic respiratory failure ACV 16/500/8/50 Ventilator bundle Albuterol/ipratropium aerosols every 6 hours with albuterol aerosols every 2. hours as needed dyspnea Spontaneous breathing trials when clinically indicated Follow-up on chest x-ray in a.m. 09/15 CVS: Severe septic shock Lactic acidosis A fib with RVR, now NSR mild pulmonary hypertension Coronary disease status post stent times 07/2015 History of hypertension History of dyslipidemia -Aggressively fluid resuscitated Currently on vasopressin 0.04 international units a minute to maintain mean arterial pressure greater than equal 65 -Hold all home antihypertensives (metoprolol succinate 25 mg daily and amlodipine 5 mg by mouth daily, and losartan 100 mg by mouth daily Holding aspirin 81 mg by mouth daily with low platelet -Continue Amiodarone drip at 0.5 mcg/min, Cannot anticoagulate due to recent surgery and thrombocytopenia 2D echocardiogram 09/13 - left ventricular systolic function is normal with an estimated ejection fraction in the range of 50-55%. Normal left ventricular size. Wall thickness is normal. No definite regional wall motion abnormalities. There is mild tricuspid regurgitation. The estimated pulmonary arterial pressure is 44 mmHg. On hydrocortisone sodium succinate 100 mg IV every 8 hours Renal//FEN Acute kidney failure Hyponatremia -Most likely secondary to ATN/septic shock -Nephrology Dr. Zhu following, CVVH started 09/11/17, transition to IHD 09/13 -3 L with hemodialysis 09/13. GI/ID Small bowel enterotomy with leakage of small bowel contents, status post ex lap s/p diverting ileostomy POD 3 Peritonitis with septic shock -Status post ascending colectomy 09/07 pod 8 -status post ex lap irrigation and diverting ileostomy for small bowel perforation pod3 -Continue metronidazole, piperacillin/tazobactam, ceftaroline and micafungin and vancomycin. Teflaro added by ID Dr. Orozco -Post op Management per Dr. Mcclellan general surgery -Cultures negative to date BRANDEN left --40 SS BRANDEN right --85 SS HEME: Leukocytosis Normocytic anemia Thrombocytopenia -Monitor CBC, coags -Thrombocytopenia secondary to sepsis, DIC Check LDH, haptoglobin and peripheral smear Hematology consultation for persistent thrombocytopenia likely secondary to sepsis/consumptive -Holding sq Heparin, check HIT screen results pending ENDO: Hyperglycemia History of gout Hypothyroidism Sliding scale insulin with NovoLog to maintain euglycemia/low regimen every 6 hours Holding allopurinol 100 mg by mouth daily for gout/home medication Resume levothyroxine 50 mcg by tube daily.. IV levothyroxine limited to myxedema coma only at [place] due to nationwide shortage DVT GI prophylaxis -Luis M's and SCDs -Subcu heparin-hold due to thrombocytopenia -Famotidine Critical Care: The total critical care time was 35 minutes. Time to perform other separately billable procedures was not included in the critical care time. updated 09/14/17 Eric Pascual MD Sep 14, 2017 09:14
[2017-09-14] MEDS ORDERED: ACETAMINOPHEN 1000 MG/100 ML 100 ML IV PRN (09:15)
[2017-09-14] MEDS: RESP: ALBUTEROL 2.5 MG/IPRATROPIUM 0.5 MG NEB (SCH) NEB ×3 (09:39→20:40)
[2017-09-14 09:41] LABS: INTERNATIONAL NORMALIZED RATIO 1.2 RATIO; PROTHROMBIN TIME - PATIENT 12.2 SEC (9.8-11.6)
[2017-09-14] MEDS ORDERED: GLUCAGON 1 MG/ML VIAL OTHER PRN (09:45)
[2017-09-14] MEDS ORDERED: DEXTROSE 50% IN WATER 50 ML VIAL(D50) IV PUSH PRN (09:45)
--- NOTE | 2017-09-14 11:54 | HHI.IDPN ---
Subjective Subjective Remarks is a 67 y/o CM with PMHx significant for CAD, s/p PCI and stents. He was repeatedly diagnosed with sessile polyp and underwent exploratory laparoscopy with robotic takedown of splenic flexure, colonoscopy with tattooing and robotic ascending colectomy on 09/07/17 by . Reportedly, the urine output was low and urology was consulted when despite IVF urine output did not increase. Patient was seen by and underwent cystoscopy and bilateral ureteral catheter insertion with 500 cc of urine obtained. During the hospital stay patient subsequently had abdominal distention and despite NG tube to suction continued to have worsening distention and discomfort. A KUB done earlier on the day of CT on 09/11/2017 was negative for free air but subsequent imaging showed free air so patient was emergently taken to the OR by . Patient was found to have a small bowel defect and large amounts of of bowel contents were visible in peritoneum per op note. Critical Care was consulted and patient is currently being treated for Septic Shock with multiple pressors, IVF boluses given yday. He had low urine output and Nephrology is on the case and CVVHD initiated. Patient had issues with clotting of access line so CVVHD has been interrupted off and on. Patient is currently intubated on a ventilator. Not much resp secretions. Ileostomy output ok. Platelets have been low but no obvious bleeding from any sites. Patient remains sedated on vent. Patient has been started on empiric antibiotics Zosyn IV, Vanco IV x 1 dose, Flagyl IV, Micafungin IV. Left IJ Vascath placed on 09/11/2017 ID consulted for evaluation and Mment of Septic Shock, Secondary peritonitis. Overnight events reviewed. Pressor requirements decreased further overnight. Off CVVHD, recd HD yday. Platelets low again. Hematology consulted. No fevers No rash No diarrhea Antibiotics Zosyn IV Micafungin IV Lines Line sites with no e.o infection Past Medical History reviewed Allergies: Coded Allergies: No Known Allergies (Unverified Allergy, Unknown, 09/07/17) Objective . Vital Signs Date Time Temp Pulse Resp B/P (MAP) Pulse Ox O2 Delivery O2 Flow Rate FiO2 09/14/17 10:39 94 50 09/14/17 10:00 67 09/14/17 09:43 50 09/14/17 08:40 70 120/52 09/14/17 08:00 50 09/14/17 08:00 69 09/14/17 08:00 98.6 69 18 120/52 (74) 93 09/14/17 07:53 92 50 09/14/17 06:00 67 09/14/17 04:00 50 09/14/17 04:00 97.2 72 18 116/52 (73) 94 09/14/17 04:00 72 09/14/17 03:37 96 50 09/14/17 02:00 74 09/14/17 00:49 94 50 09/14/17 00:00 50 09/14/17 00:00 70 09/14/17 00:00 97.5 70 20 110/50 (70) 97 09/13/17 22:00 76 09/13/17 20:47 94 40 09/13/17 20:00 97.5 70 19 100/48 (65) 95 09/13/17 20:00 76 09/13/17 20:00 40 09/13/17 19:00 69 113/55 09/13/17 17:59 65 114/56 09/13/17 16:37 68 120/56 09/13/17 16:00 98.1 65 18 117/51 (73) 94 09/13/17 16:00 65 09/13/17 16:00 65 117/51 09/13/17 15:00 63 104/47 09/13/17 14:25 95 40 09/13/17 14:15 62 95/47 09/13/17 14:00 62 97/47 09/13/17 12:40 64 95/49 09/13/17 12:00 97.9 64 22 103/51 (68) 94 09/13/17 12:00 64 09/13/17 12:00 40 . Laboratory Tests Test 09/13/17 05:30 09/14/17 04:15 09/14/17 09:10 White Blood Count 25.2 TH/MM3 15.1 TH/MM3 Red Blood Count 3.35 MIL/MM3 2.93 MIL/MM3 Hemoglobin 10.2 GM/DL 8.8 GM/DL Hematocrit 29.7 % 25.9 % Mean Corpuscular Volume 88.5 FL 88.3 FL Mean Corpuscular Hemoglobin 30.5 PG 30.0 PG Mean Corpuscular Hemoglobin Concent 34.4 % 34.0 % Red Cell Distribution Width 14.5 % 14.4 % Platelet Count 45 TH/MM3 31 TH/MM3 Mean Platelet Volume 9.0 FL 9.5 FL Neutrophils (%) (Auto) 92.3 % 91.8 % Lymphocytes (%) (Auto) 2.2 % 4.1 % Monocytes (%) (Auto) 5.4 % 4.0 % Eosinophils (%) (Auto) 0.0 % 0.0 % Basophils (%) (Auto) 0.1 % 0.1 % Neutrophils # (Auto) 23.2 TH/MM3 13.9 TH/MM3 Lymphocytes # (Auto) 0.6 TH/MM3 0.6 TH/MM3 Monocytes # (Auto) 1.4 TH/MM3 0.6 TH/MM3 Eosinophils # (Auto) 0.0 TH/MM3 0.0 TH/MM3 Basophils # (Auto) 0.0 TH/MM3 0.0 TH/MM3 CBC Comment AUTO DIFF AUTO DIFF Differential Total Cells Counted 100 100 Neutrophils % (Manual) 63 % 74 % Band Neutrophils % 34 % 21 % Monocytes % 3 % 2 % Neutrophils # (Manual) 24.4 TH/MM3 14.5 TH/MM3 Nucleated Red Blood Cells 1 /100 WBC Differential Comment FINAL DIFF MANUAL FINAL DIFF MANUAL Toxic Granulation 2+ 2+ Platelet Estimate LOW LOW Platelet Morphology Comment NORMAL NORMAL Red Cell Morphology Comment NORMAL Lymphocytes % 2 % Metamyelocytes 1 % Blood Smear Pathologist Review Haptoglobin 252 MG/DL Laboratory Tests Test 09/12/17 13:49 09/12/17 20:30 09/13/17 00:10 09/13/17 02:25 Blood Urea Nitrogen 47 MG/DL 50 MG/DL 49 MG/DL 52 MG/DL Creatinine 3.88 MG/DL 3.88 MG/DL 3.80 MG/DL 3.99 MG/DL Random Glucose 159 MG/DL 135 MG/DL 134 MG/DL 146 MG/DL Albumin 1.3 GM/DL 1.2 GM/DL 1.1 GM/DL 1.1 GM/DL Calcium Level 6.7 MG/DL 6.6 MG/DL 6.1 MG/DL 6.9 MG/DL Phosphorus Level 4.6 MG/DL 4.1 MG/DL 3.9 MG/DL 3.9 MG/DL Sodium Level 135 MEQ/L 135 MEQ/L 136 MEQ/L 136 MEQ/L Potassium Level 4.0 MEQ/L 3.9 MEQ/L 3.9 MEQ/L 3.8 MEQ/L Chloride Level 99 MEQ/L 98 MEQ/L 98 MEQ/L 97 MEQ/L Carbon Dioxide Level 26.4 MEQ/L 26.5 MEQ/L 26.5 MEQ/L 27.3 MEQ/L Anion Gap 10 MEQ/L 11 MEQ/L 12 MEQ/L 12 MEQ/L Estimat Glomerular Filtration Rate 16 ML/MIN 16 ML/MIN 16 ML/MIN 15 ML/MIN Protein Corrected Calcium 8.2 MG/DL 7.5 MG/DL 8.4 MG/DL Magnesium Level 2.0 MG/DL 1.8 MG/DL 1.8 MG/DL 1.9 MG/DL Total Protein 4.2 GM/DL 4.2 GM/DL 4.3 GM/DL Test 09/13/17 05:30 09/13/17 07:59 09/13/17 16:27 09/13/17 20:43 25-Hydroxy Vitamin D Total 12.6 ng/ML Blood Urea Nitrogen 56 MG/DL 43 MG/DL 48 MG/DL Creatinine 4.34 MG/DL 3.21 MG/DL 3.94 MG/DL Random Glucose 147 MG/DL 122 MG/DL 132 MG/DL Total Protein 4.4 GM/DL Albumin 1.1 GM/DL 1.6 GM/DL 1.4 GM/DL Calcium Level 7.2 MG/DL 7.8 MG/DL 7.0 MG/DL Phosphorus Level 4.5 MG/DL 3.6 MG/DL 4.4 MG/DL Magnesium Level 2.0 MG/DL 2.0 MG/DL 2.1 MG/DL Sodium Level 135 MEQ/L 136 MEQ/L 135 MEQ/L Potassium Level 3.9 MEQ/L 3.8 MEQ/L 3.7 MEQ/L Chloride Level 97 MEQ/L 97 MEQ/L 97 MEQ/L Carbon Dioxide Level 26.3 MEQ/L 28.2 MEQ/L 27.8 MEQ/L Anion Gap 12 MEQ/L 11 MEQ/L 10 MEQ/L Estimat Glomerular Filtration Rate 14 ML/MIN 19 ML/MIN 15 ML/MIN Protein Corrected Calcium 8.7 MG/DL Test 09/14/17 02:35 09/14/17 04:15 09/14/17 09:10 Blood Urea Nitrogen 57 MG/DL 59 MG/DL Creatinine 4.17 MG/DL 4.27 MG/DL Random Glucose 141 MG/DL 131 MG/DL Albumin 1.3 GM/DL 1.4 GM/DL Calcium Level 7.5 MG/DL 7.4 MG/DL Phosphorus Level 4.6 MG/DL 4.9 MG/DL Magnesium Level 2.1 MG/DL 2.2 MG/DL 2.3 MG/DL Sodium Level 136 MEQ/L 134 MEQ/L Potassium Level 3.8 MEQ/L 3.9 MEQ/L Chloride Level 98 MEQ/L 96 MEQ/L Carbon Dioxide Level 27.3 MEQ/L 26.5 MEQ/L Anion Gap 11 MEQ/L 12 MEQ/L Estimat Glomerular Filtration Rate 14 ML/MIN 14 ML/MIN Total Protein 4.4 GM/DL Protein Corrected Calcium 9.0 MG/DL Microbiology Date/Time Source Procedure Growth Status 09/13/17 01:35 Blood Peripheral Aerobic Blood Culture - Preliminary NO GROWTH IN 1 DAY Resulted 09/13/17 01:35 Blood Peripheral Anaerobic Blood Culture - Preliminary NO GROWTH IN 1 DAY Resulted 09/13/17 01:30 Blood Peripheral Aerobic Blood Culture - Preliminary NO GROWTH IN 1 DAY Resulted 09/13/17 01:30 Blood Peripheral Anaerobic Blood Culture - Preliminary NO GROWTH IN 1 DAY Resulted 09/13/17 10:00 Sputum Endotracheal Gram Stain - Final Resulted 09/13/17 10:00 Sputum Endotracheal Sputum Culture - Preliminary MODERATE GROWTH NORMAL RESPIRATORY FL... Resulted Imaging Last Impressions Chest X-Ray 09/13/17 0600 Signed Impressions: Service Date/Time: September 05:23 - CONCLUSION: Slight interval worsening in aeration. Michele Coleman MD Abdomen X-Ray 09/13/17 0000 Signed Impressions: Service Date/Time: September 10:52 - CONCLUSION: Gastric tube tip and side-port project over the stomach. Andrés Gardner MD Renal Ultrasound 09/10/17 0000 Signed Impressions: Service Date/Time: Sunday, September 10, 2017 15:17 - CONCLUSION: No evidence of mass or hydronephrosis. Andrés Gardner MD Physical Exam GENERAL: This is a well-nourished, well-developed patient, in no apparent distress. SKIN: No rashes, ecchymoses or lesions. Cool and dry. HEAD: Atraumatic. Normocephalic. No temporal or scalp tenderness. EYES: Pupils equal round and reactive. No scleral icterus. No injection or drainage. ENT: Intubated. NECK: Trachea midline. Supple, nontender, no meningeal signs. CARDIOVASCULAR: HS audible. RESPIRATORY: Clear to auscultation. Breath sounds equal bilaterally but decreased in the bases. GASTROINTESTINAL: Abdomen soft, Ostomy bag with liquid stool. MUSCULOSKELETAL: Extremities without clubbing, cyanosis. Pedal edema noted. No joint tenderness, effusion, or edema noted. No calf tenderness. Negative Homans sign bilaterally. NEUROLOGICAL: Sedated Psych could not be assessed IV line sites with no e.o infection. Assessment & Plan Remarks Severe Sepsis with Shock Secondary peritonitis due to small bowel perforation s/p Enterostomy and washout s/p robotic splenic flexure takedown on 09/07/17 s/p cystoscopy with bilateral ureteroscopies on 09/07/2017 Thrombocytopenia: sepsis, DIC Acute renal failure: prerenal, sepsis. On CVVHD. Recs: Continue Zosyn IV. Risk for MDRO is low as antibiotic naive prior to this admission. No recent hospitalizations prior to the planned Robotic surgery. Continue Teflaro IV (ASP: for MRSA lung coverage, cannot use Zyvox, Vanco IV or dapto) Continue Micafungin IV Continue Flagyl IV for double anaerobic coverage while septic. Will deescalate therapy in am once off pressors completely. Follow cultures Follow clinically. Lu Escobar RN, MD Sep 14, 2017 11:54
[2017-09-14] MEDS: INSULIN ASPART SUPPLEMENTAL SCALE SQ SCH ×3 (12:00→23:53)
--- NOTE | 2017-09-14 13:01 | HHI.PR ---
Subjective Remarks POD#7 s/p robotic ascending colectomy/POD#3 exploratory lap with diverting ileostomy Intubated, sedated but responding somewhat Objective Vital Signs Date Time Temp Pulse Resp B/P (MAP) Pulse Ox O2 Delivery O2 Flow Rate FiO2 09/14/17 10:39 94 50 09/14/17 10:00 67 09/14/17 09:43 50 09/14/17 08:40 70 120/52 09/14/17 08:00 50 09/14/17 08:00 69 09/14/17 08:00 98.6 69 18 120/52 (74) 93 09/14/17 07:53 92 50 09/14/17 06:00 67 09/14/17 04:00 50 09/14/17 04:00 97.2 72 18 116/52 (73) 94 09/14/17 04:00 72 09/14/17 03:37 96 50 09/14/17 02:00 74 09/14/17 00:49 94 50 09/14/17 00:00 50 09/14/17 00:00 70 09/14/17 00:00 97.5 70 20 110/50 (70) 97 09/13/17 22:00 76 09/13/17 20:47 94 40 09/13/17 20:00 97.5 70 19 100/48 (65) 95 09/13/17 20:00 76 09/13/17 20:00 40 09/13/17 19:00 69 113/55 09/13/17 17:59 65 114/56 09/13/17 16:37 68 120/56 09/13/17 16:00 98.1 65 18 117/51 (73) 94 09/13/17 16:00 65 09/13/17 16:00 65 117/51 09/13/17 15:00 63 104/47 09/13/17 14:25 95 40 09/13/17 14:15 62 95/47 18 14:00 62 97/47 I/O 09/13/1718 18 09/14/1718 09/14/17 07:00 15:00 23:00 07:00 15:00 23:00 Intake Total 870 ml 870 ml 650 ml 220 ml Output Total 345 ml 3130 ml 105 ml Balance 525 ml 870 ml -2480 ml 115 ml IV Total 870 ml 870 ml 650 ml 220 ml Output Urine Total 60 ml 30 ml 40 ml Stool Total 50 ml 25 ml 15 ml Gastric Drainage Total 150 ml 0 ml 0 ml Drainage Total 85 ml 75 ml 50 ml Hemodialysis 3000 ml Result Diagram: 09/14/17 0415 09/14/17 0415 Objective Remarks Abdomen soft, distended, ileostomy pink wound without erythema or fluctuance BRANDEN - watery, brown, scant blood Assessment and Plan Assessment and Plan transverse colon polyp/sb enterotomy NEURO - sedated, but more responsive CV - off pressors, NS rhythm, HR/BP improved PULM - stable on vent, tolerated 2 hours CPAP today GI - continue NGT FEN - HD today ID - on Flagyl/Zosyn/ceftaroline/micafungin/vanco, - WBC's decreasing Heme - watch platelets Condition guarded Ivory Mcclellan MD Sep 14, 2017 13:01
[2017-09-14] MEDS: ARTIFICIAL TEARS OPTH SOLN 15 ML BTL EACH EYE SCH ×2 (14:00→21:27)
--- NOTE | 2017-09-14 14:22 | HHI.NPPN ---
Subjective Renal Failure: Acute Interval History Creatinine higher despite dialysis. He did 2 hrs of CPAP trial. On 50% FiO2, oxygen requirement has increased. He is off all pressors. (Helena Malave) Review of Systems General General Remarks unable to evaluate (Helena Malave) Objective Data Data Vital Signs Date Time Temp Pulse Resp B/P (MAP) Pulse Ox O2 Delivery O2 Flow Rate FiO2 09/14/17 10:39 94 50 09/14/17 10:00 67 09/14/17 09:43 50 09/14/17 08:40 70 120/52 09/14/17 08:00 50 09/14/17 08:00 69 09/14/17 08:00 98.6 69 18 120/52 (74) 93 09/14/17 07:53 92 50 09/14/17 06:00 67 09/14/17 04:00 50 09/14/17 04:00 97.2 72 18 116/52 (73) 94 09/14/17 04:00 72 09/14/17 03:37 96 50 09/14/17 02:00 74 09/14/17 00:49 94 50 09/14/17 00:00 50 09/14/17 00:00 70 09/14/17 00:00 97.5 70 20 110/50 (70) 97 09/13/17 22:00 76 09/13/17 20:47 94 40 09/13/17 20:00 97.5 70 19 100/48 (65) 95 09/13/17 20:00 76 09/13/17 20:00 40 09/13/17 19:00 69 113/55 09/13/17 17:59 65 114/56 09/13/17 16:37 68 120/56 09/13/17 16:00 98.1 65 18 117/51 (73) 94 09/13/17 16:00 65 09/13/17 16:00 65 117/51 09/13/17 15:00 63 104/47 09/13/17 14:25 95 40 (Helena Malave) -: 09/14/17 0415 09/14/17 0415 Imaging Last 72 hours Impressions Chest X-Ray 09/14/17 0600 Signed Impressions: Service Date/Time: Thursday, September 14, 2017 03:40 - CONCLUSION: No significant interval change. Persistent left lower lobe atelectasis versus consolidation and mild hazy bilateral lung opacity. Valeriy Gagnon MD Chest X-Ray 09/13/17 0600 Signed Impressions: Service Date/Time: September 05:23 - CONCLUSION: Slight interval worsening in aeration. Michele Coleman MD Abdomen X-Ray 09/13/17 0000 Signed Impressions: Service Date/Time: September 10:52 - CONCLUSION: Gastric tube tip and side-port project over the stomach. Andrés Gardner MD Tubes & Lines: Vas-Cath, Canela Tubes & Lines Comment TLC right IJ VC left IJ A line ileostomy RLQ BRANDEN drains x 2 abd Drip Comment fentanyl and propofol for sedation (Helena Malave) Physical Exam General Appearance: Well Developed, Comfortable Appearance Remarks intubated, sedated, eyes closed (Helena Malave) Throat Throat Exam: Oral Mucosa [place] & Moist (Helena Malave) Neck Neck Exam: Neck Supple (Helena Malave) Pulmonary Resp Exam: Breath Sounds Equal, No Distress, Decreased Bases Resp Remarks vented lung sounds (Helena Malave) Gastrointestinal/Abdomen GI Exam: Distended, Bowel Sounds Hypoactive GI Remarks abd binder in place, BRANDEN drain in place x2 ileostomy, stoma is pink, has small output (Helena Malave. IKER) Genitourinary Remarks oliguric, urine is dark (Helena Malave) Musculoskeletal MS Exam: Joints Intact, Good Strength, Unable to Ambulate (Helena Malave) Integumentary Skin Exam: Warm, Dry, Intact Skin Remarks midabdominal incision (Helena Malave) Extremeties Extremities Exam: Pedal Pulses Palpable, Moderate Edema (Helena Malave) Neurologic Neuro Exam: Unresponsive, Sedated (Helena Malave) Psychiatric Psych Exam: Appropriate Responses (Helena Malave) VTE Prophylaxis Device: SCDs (Helena Malave) Assessment/Plan Assessment Summary: JOSEF/Acute Renal Failure, Acute Tubular Necrosis, Hypotension Electrolyte Assessment: Hypocalcemia, Metabolic Acidosis Problem List: (1) JOSEF (acute kidney injury) ICD Codes: N17.9 - Acute kidney failure, unspecified Plan: His renal function is normal at baseline JOSEF due to ATN He has become anuric Vascath placed 09/11; had CRRT 09/11-09/12. IHD started 09/13. 3L UF Creatinine is higher today HD again today, repeat labs in AM, HD if needed Off pressors Await renal recovery On 50% FiO2, follow fluid status Obtain labs per protocol Avoid nephrotoxic agents and dose medications appropriate to renal status. (2) S/P partial colectomy ICD Codes: Z90.49 - Acquired absence of other specified parts of digestive tract Plan: He has developed small bowel perforation after robotic surgery, s/p emergent ex lap with I&D 09/11 Management per surgery , has ileostomy that is draining He has hemodynamic instability, continue supportive care Currently NPO Prognosis is guarded. (3) Sepsis ICD Codes: A41.9 - Sepsis, unspecified organism Plan: Antibiotics include Zosyn, micafungin, flagyl, and ceftaroline monitor drug levels when appropriate ID is following (4) Hypocalcemia ICD Codes: E83.51 - Hypocalcemia Plan: Improving with replacement start liquid vitamin D for deficiency (Helena Malave) Plan patient was seen and examined. Agree with above assessment and plan. Dialysis today. Oligoanuric. ID following, on Teflaro (Nish hZu MD) Helena Malave Sep 14, 2017 14:22 Nish Zhu MD Sep 14, 2017 15:19
[2017-09-14 14:30] LABS: CREATININE, RANDOM URINE 109.1 MG/DL
[2017-09-14] MEDS: CHOLECALCIFEROL (VIT D3) LIQ 400 UNITS/ML 50 ML BOTTLE PO SCH (14:30)
[2017-09-14 14:31] LABS: HEPARIN INDUCED PLATELET AB NEGATIVE (NEGATIVE)
--- NOTE | 2017-09-14 16:28 | PD.WCN.NOT ---
Wound Consult Description: New ostomy teaching ordered by Communicated with: ANDREZ Luu Recommendation: Monitor ileostomy color and output Q4H Additional Information: Patient seen on for ileostomy appliance change using 2 1/4" appliance obtained from [facility]. Ostomy Type: Ileostomy Surgeon: Ivory Mcclellan MD Date of Surgery: Sep 11, 2017 Educated patient on: Patient sedated/intubated Additional information Ostomy on lower right side abdomen is measuring 1" x 1 1/4" red, oval, moist, moderately protruding with lumen noted @ 12 o'clock functioning with ~20ml of dark green effluent noted in pouch that was discarded with pouch removal. Mucocutaneous junction is noted with circumferential sutures other evans unremarkable. Peristomal skin was cleansed with water and gauze and allowed to air dry. Peristomal skin is noted with some ecchymosis, however no open areas are noted. Cavilon skin barrier film was used to prep the skin prior to new appliance application with a 2 1/4" moldable wafer obtained from [facility]. Open ended transparent pouch was attached to the flange and closed tightly. Stoma is close to the midline incision which is noted with yellow/sanguinous exudate which has made the skin denuded and macerated as evidenced by the friable blistering visable. With the new application of the wafer, the medial paper edge was cut away to allow for the midline incision to remain open to air to dry out. Wound recommend gently spraying suture line with wound cleanser and pat dry with gauze BID followed by spraying Cavilon skin barrier film 1-2 times and leave suture line open to air. Patient will be followed up on Sunday. Marie Schroeder [facility] Sep 14, 2017 16:28
[2017-09-14 17:09] LABS: ALBUMIN 1.8 GM/DL (3.4-5.0); BICARBONATE 27.1 MEQ/L (21.0-32.0); CALCIUM 7.5 MG/DL (8.5-10.1); CREATININE 4.23 MG/DL (0.60-1.30); MAGNESIUM 2.2 MG/DL (1.5-2.5)
[2017-09-14 17:10] LABS: PHOSPHORUS 4.5 MG/DL (2.5-4.9)
[2017-09-14] MEDS: MICAFUNGIN INJ 150 MG in SODIUM CHLORIDE 0.9% INJ 100 ML IV SCH (17:36)
[2017-09-14] MEDS: AMIODARONE INJ 450 MG in SODIUM CHLOR 0.9% (EXCEL) INJ 241 ML IV PRN (17:36)
[2017-09-14] MEDS: GENTAMICIN SULFATE 20 MG/2 ML VIAL OTHER PRN (18:04)
[2017-09-14] MEDS: HEPARIN SODIUM - IV 10,000 UNITS/10 ML VIAL PRN (18:04)
[2017-09-14] MEDS: SODIUM CHLOR 0.9% 1000 ML INJ 1,000 ML OTHER PRN (18:05)
--- NOTE | 2017-09-14 20:46 | MB ---
cc: Shannan Romo MD,Eric Breen,Jay GIRALDO DATE: 09/14/2017 REFERRING PHYSICIAN: Dr. Eric Pascual. CHIEF COMPLAINT: Dr. Pascual requests a consultation for Mr. Man regarding thrombocytopenia and sepsis. HISTORY OF PRESENT ILLNESS: Mr. Man is a 67-year-old man, a well-known patient to my retired partner, Dr. Kyler Cronin. He was seen by Dr. Cronin in consultation in May 2015 for thrombocytopenia. He required no specific therapy. His platelet count remains above 100,000. He has been perfectly stable and has platelet counts documented above 100,000 for over [address] Cronin's halfway, he was seen by my partner, Dr. Jay Breen, who last saw him 08/24/2016. He was pending a followup appointment with Dr. Breen in 12 months' time, with platelet count every 6 months. Mr. Man was admitted after an exploratory laparotomy with robotic takedown of the splenic flexure. He had a very large colonic polyp. He developed complications of acute renal failure, ileus, metabolic acidosis, pneumoperitoneum from a perforated viscus. He was taken to surgery by Dr. Mcclellan on 09/11/2017. Findings were a small bowel enterotomy with leakage of small bowel content. This was repaired and he has subsequently been under the care of the intensivists. During the hospital course, he has developed progressive cytopenia, developing anemia with hemoglobin of 8.8. His white counts initially elevated, had a katie down to 3.7, and came up to 19.4 after his surgery. It appears to be trending down. His platelet count, however, remained above 100,000 until surgery on 09/11/2017. It has progressively decreased until a platelet count of 31,000 at the time of the consultation. On review of his clinical course, Mr. Man has no overt bleeding. He seems to be stable from a clinical standpoint. Pressors are decreasing. His hemoglobin did decrease from 10.2 to 8.8 at the time of the consultation. His platelet count went down from 45,000 to 31,000. His white blood cell count has likewise decreased. He had dialysis today and had a negative fluid balance. Additional workup included an LDH that is slightly elevated at 262. Albumin is low. Last bilirubin was 2.4. Haptoglobin is elevated at 252. HIT antibodies were negative. Hematology/Oncology is consulted for the thrombocytopenia. REVIEW OF SYSTEMS: No review of systems could be performed, as the patient is intubated and sedated. PAST MEDICAL HISTORY: Hypertension, gout, arthritis, coronary artery disease, chronic thrombocytopenia. PAST SURGICAL HISTORY: PCI, colonoscopy, exploratory laparotomy and colectomy, exploratory surgery for perforated viscus. SOCIAL HISTORY: Mr. Man is , retired, lives with his . He is a never smoker. He quit drinking 25 years ago. FAMILY HISTORY: Both parents are . No significant family history of cancer. ALLERGIES: NO KNOWN DRUG ALLERGIES. CURRENT MEDICATIONS: Synthroid, ceftaroline, vitamin D, Artificial Tears, insulin, DuoNebs, piperacillin/tazobactam, fentanyl, hydrocortisone, micafungin, phenylephrine (held), metronidazole, propofol, amiodarone, vasopressin. PHYSICAL EXAMINATION: VITAL SIGNS: Temperature 98.5, heart rate 78, respiratory rate 17, blood pressure 137/57, saturation 96%. GENERAL: Mr. Man is a well-developed, well-nourished man. He looks jaundiced. He is intubated and sedated. He opens his eyes spontaneously. HEENT: His pupils are reactive. LUNGS: Good air entry bilaterally. ABDOMEN: Distended and firm. Decreased bowel sounds. EXTREMITIES: Lower extremity with good pulses, bilateral trace edema. His upper and lower extremities are taut with edema. LABORATORY DATA: As described above. ASSESSMENT AND PLAN: Mr. Man is a 67-year-old man with multiple medical problems including coronary artery disease, gout, and chronic nonprogressive thrombocytopenia. He has been followed at hematology clinic for the thrombocytopenia. He was admitted post-exploratory laparoscopy, robotic takedown of splenic flexure, and colonoscopy and ascending colectomy. His course is complicated by a perforation, sepsis, atrial fibrillation, and acute renal failure. He is also noted to have worsening cytopenias, atrial fibrillation, acute renal failure, worsened anemia, and thrombocytopenia. Mr. Man is impressively septic with supportive dialysis, mechanical ventilatory support, and pressors. Pressor support is being titrated to keep good blood pressure. He seems to be clinically improving. Noted the workup for the thrombocytopenia, namely LDH and haptoglobin, which argues against a microangiopathic hemolytic process associated with the renal failure. He has, at baseline, decreased platelet production from chronic thrombocytopenia. Low-grade idiopathic thrombocytopenic purpura (ITP) cannot be excluded. Multiple factors contribute to the thrombocytopenia. He is septic 3 days postoperative. Platelets are required for healing. I am unable to exclude a drug effect from antibiotic therapy such as a cephalosporin. Furthermore, he seems to have low platelet production at baseline. Recommend continued supporting. Concur with Dr. Pascual that sepsis seems to be most likely etiology of thrombocytopenia. PT and PTT are prolonged, but his fibrinogen is elevated. We will continue to monitor her as anticipated with sepsis and DIC is the consumption of platelets and decrease of the fibrinogen. Other etiology such as sequestration is considered. Imaging studies of the liver and spleen can be coordinated. Bilirubin comprehensive panel will be added. Supportive transfusion is recommended for a platelet count less than 20,000 or evidence of bleeding. Post-platelet transfusion platelet counts will be coordinated. Review of the peripheral smear and check of the platelet count in a blue-top tube will be drawn. MD DIXON Vazquez/ANTHONY , 08:00 PM , 08:44 PM
[2017-09-14] MEDS: CEFTAROLINE INJ 300 MG in SODIUM CHLORIDE 0.9% INJ 100 ML IV SCH (22:14)
[2017-09-15] VITALS (17 sets, daily range): BP systolic 122–164; BP diastolic 52–66; PULSE 64–79; RESP 14–18; TEMP 97.5–98.6; O2SAT 93–100
[2017-09-15] MEDS: PIPERACIL-TAZO 2.25 GM PREMIX 50 ML IV SCH ×3 (01:33→13:09)
[2017-09-15] MEDS: PROPOFOL 1000 MG/100 ML INJ 100 ML IV PRN ×5 (01:34→23:11)
[2017-09-15 02:23] LABS: ALBUMIN 1.9 GM/DL (3.4-5.0); BICARBONATE 27.8 MEQ/L (21.0-32.0); CREATININE 4.03 MG/DL (0.60-1.30); MAGNESIUM 2.4 MG/DL (1.5-2.5); PHOSPHORUS 4.8 MG/DL (2.5-4.9)
[2017-09-15 02:28] LABS: CALCIUM 7.4 MG/DL (8.5-10.1)
[2017-09-15 03:25] LABS: CALCIUM-PROTEIN CORRECTED 8.5 MG/DL (8.5-10.1); TOTAL PROTEIN 5.1 GM/DL (6.4-8.2)
[2017-09-15] MEDS: RESP: ALBUTEROL 2.5 MG/IPRATROPIUM 0.5 MG NEB (SCH) NEB ×4 (04:36→20:00)
[2017-09-15] MEDS: ARTIFICIAL TEARS OPTH SOLN 15 ML BTL EACH EYE SCH ×3 (05:01→21:11)
[2017-09-15 05:34] LABS: AUTOMATED NEUTROPHIL # 11.3 TH/MM3 (1.8-7.7); HEMATOCRIT 24.2 % (39.0-51.0); HEMOGLOBIN 8.5 GM/DL (13.0-17.0); LYMPH % 3.9 % (9.0-44.0); LYMPHOCYTE # 0.5 TH/MM3 (1.0-4.8); MEAN CELL VOLUME 87.3 FL (80.0-100.0); MEAN CORPUSCULAR HEMOGLOBIN 30.6 PG (27.0-34.0); MEAN PLATELET VOLUME 8.7 FL (7.0-11.0); MONO % 4.4 % (0.0-8.0); MONOCYTE # 0.5 TH/MM3 (0-0.9); NEUT % 91.7 % (16.0-70.0); PLATELET COUNT 44 TH/MM3 (150-450); RED BLOOD COUNT 2.78 MIL/MM3 (4.50-5.90); RED CELL DISTRIBUTION WIDTH 14.4 % (11.6-17.2); WHITE BLOOD COUNT 12.4 TH/MM3 (4.0-11.0)
[2017-09-15] MEDS: HYDROCORTISONE SOD SUCCINATE 100 MG VIAL IV SCH ×3 (05:36→21:10)
[2017-09-15] MEDS: metroNIDAZOLE 500 MG INJ 100 ML IV SCH ×4 (05:36→23:10)
[2017-09-15] MEDS: LEVOTHYROXINE SODIUM 50 MCG TAB PO SCH (05:36)
[2017-09-15 05:50] LABS: INTERNATIONAL NORMALIZED RATIO 1.2 RATIO; PROTHROMBIN TIME - PATIENT 11.7 SEC (9.8-11.6)
[2017-09-15] MEDS: INSULIN ASPART SUPPLEMENTAL SCALE SQ SCH ×3 (06:00→17:50)
[2017-09-15 06:58] LABS: ALBUMIN 1.9 GM/DL (3.4-5.0); BICARBONATE 26.9 MEQ/L (21.0-32.0); CALCIUM 7.4 MG/DL (8.5-10.1); CALCIUM-PROTEIN CORRECTED 8.6 MG/DL (8.5-10.1); CREATININE 4.34 MG/DL (0.60-1.30); MAGNESIUM 2.4 MG/DL (1.5-2.5); PHOSPHORUS 5.3 MG/DL (2.5-4.9); TOTAL BILIRUBIN ADULT 3.4 MG/DL (0.2-1.0)
[2017-09-15 07:27] LABS: BANDS 17 % (0-6); LYMPHOCYTES 5 % (9-44); MONOCYTES 4 % (0-8); MYELOCYTES 1 % (0-0); NEUTROPHIL # MANUAL DIFF 11.3 TH/MM3 (1.8-7.7); POLYS (SEG NEUTROPHILS) 73 % (16-70)
[2017-09-15 07:51] LABS: RETIC # 41.7 MIL/L (20.0-150.0); RETIC % 1.5 % (0.4-3.0)
[2017-09-15] MEDS: PANTOPRAZOLE SODIUM 40 MG VIAL IVP SCH (08:30)
[2017-09-15] MEDS: CEFTAROLINE INJ 300 MG in SODIUM CHLORIDE 0.9% INJ 100 ML IV SCH (08:31)
--- NOTE | 2017-09-15 09:36 | RADRPT ---
EXAM DATE/TIME: 09/15/2017 07:34 [place] COMPARISON: No previous studies available for comparison. INDICATIONS : Thrombocytopenia and elevated bilirubin. MEDICAL HISTORY : Myocardial infarction. Hypercholesterolemia. Thyroid disease. Tinnitus. HTN. Mildly enlarged prostate . Gout. SURGICAL HISTORY : Coronary stent and cardia catheterization. ENCOUNTER: Subsequent ACUITY: 1 day PAIN SCORE: Nonresponsive. LOCATION: Bilateral upper quadrant MEASUREMENTS: LIVER: 20.5 cm length COMMON DUCT: 6 mm RIGHT KIDNEY: 9.1 x 4.9 x 5.2 cm SPLEEN: 12.0 cm length FINDINGS: LIVER: The liver is mildly enlarged. The echogenicity of the liver appears decreased which may reflect the p resence of edema. No evidence of biliary obstruction. COMMON DUCT: No intraluminal mass or stone visualized. GALLBLADDER: The gallbladder is filled with layering sludge. No discrete stones are identified. There is minimal w all thickening at 4 mm. PANCREAS: The pancreas is not visualized on this exam secondary to patient body habitus and shadowing of bowel gas. RIGHT KIDNEY: The right kidney demonstrates a large well-circumscribed cyst within the upper pole measuring 9.3 x 7 .0 x 6.6 cm. SPLEEN: No focal lesion. There is a small amount of fluid seen adjacent to the spleen. CONCLUSION: The liver appears mildly enlarged and decreased in echogenicity concerning for edema. The gallbladder is distended with sludge. No discrete stones are visualized. There is mild wall thickening of the ga llbladder present. The spleen is overall normal in size and grossly normal in echotexture. Small amou nt of free fluid seen adjacent to the spleen. Vida Levine MD on September 15, 2017 at 9:30 Board Certified Radiologist. This report was verified electronically.
--- NOTE | 2017-09-15 10:58 | HHI.PR ---
Subjective Remarks C/R Surg POD afebrile, VSS off pressors No UO drains little Objective - Vital Signs Date Time Temp Pulse Resp B/P (MAP) Pulse Ox O2 Delivery O2 Flow Rate FiO2 09/15/17 10:10 94 50 09/15/17 10:00 71 09/15/17 08:00 98.5 18 146/62 (90) 09/13/17 04:00 Mechanical Ventilator Result Diagram: 09/15/17 0515 09/15/17 0510 Objective Remarks PE sedated On vent Abd - full, wound dry, drains min, some stoma output edema A/P Assessment and Plan Imp: cont rsp weaqning - not strong enough for extubation dialysis try NGT off suction ROM extr Delano Resendiz MD Sep 15, 2017 10:58
--- NOTE | 2017-09-15 13:21 | PD.ONC.PN ---
Subjective Subjective Remarks Afebrile Patient remains intubated and sedated Per PHYSIOTHERAPY ASSISTANT she turned off the last vasopressor yesterday He is getting dialysis today No further oozing Objective Data Date Time Temp Pulse Resp B/P (MAP) Pulse Ox O2 Delivery O2 Flow Rate FiO2 09/15/17 12:00 98.6 70 14 146/66 (92) 94 09/15/17 12:00 50 09/15/17 12:00 70 09/15/17 10:10 94 50 09/15/17 10:10 50 09/15/17 10:00 71 09/15/17 08:00 98.5 72 18 146/62 (90) 95 09/15/17 08:00 72 09/15/17 08:00 50 09/15/17 06:00 72 09/15/17 04:36 96 60 09/15/17 04:00 73 09/15/17 04:00 50 09/15/17 04:00 97.5 79 16 143/65 (91) 96 09/15/17 02:00 72 09/15/17 00:37 97 60 09/15/17 00:00 75 09/15/17 00:00 60 09/15/17 00:00 97.9 75 16 142/56 (84) 95 09/14/17 22:00 75 09/14/17 20:40 97 60 09/14/17 20:00 60 09/14/17 20:00 71 09/14/17 20:00 97.4 71 16 129/54 (79) 98 09/14/17 18:35 98.5 78 17 137/57 96 09/14/17 18:00 76 09/14/17 17:36 75 125/49 09/14/17 16:40 94 60 09/14/17 16:00 65 09/14/17 16:00 98.6 78 16 142/48 (79) 96 09/14/17 16:00 78 09/14/17 15:58 97 65 09/14/17 14:00 78 09/15/17 09/15/17 09/15/17 07:00 15:00 23:00 Intake Total 350 ml Output Total 225 ml Balance 125 ml Result Diagram: 09/15/17 0515 09/15/17 0510 Laboratory Results Laboratory Tests Test 09/14/17 16:15 09/14/17 18:00 09/15/17 01:35 09/15/17 05:10 Blood Urea Nitrogen 65 MG/DL 60 MG/DL 64 MG/DL Creatinine 4.23 MG/DL 4.03 MG/DL 4.34 MG/DL Random Glucose 115 MG/DL 118 MG/DL 116 MG/DL Albumin 1.8 GM/DL 1.9 GM/DL 1.9 GM/DL Calcium Level 7.5 MG/DL 7.4 MG/DL 7.4 MG/DL Phosphorus Level 4.5 MG/DL 4.8 MG/DL 5.3 MG/DL Magnesium Level 2.2 MG/DL 2.4 MG/DL 2.4 MG/DL Lactate Dehydrogenase 262 U/L Sodium Level 137 MEQ/L 137 MEQ/L 137 MEQ/L Potassium Level 3.9 MEQ/L 3.9 MEQ/L 4.0 MEQ/L Chloride Level 97 MEQ/L 98 MEQ/L 98 MEQ/L Carbon Dioxide Level 27.1 MEQ/L 27.8 MEQ/L 26.9 MEQ/L Anion Gap 13 MEQ/L 11 MEQ/L 12 MEQ/L Estimat Glomerular Filtration Rate 14 ML/MIN 15 ML/MIN 14 ML/MIN Blood Gas Puncture Site ART LINE Blood Gas Patient Temperature 98.6 Blood Gas HCO3 28 mmol/L Blood Gas Base Excess 3.6 mmol/L Blood Gas Oxygen Saturation 95 % Arterial Blood pH 7.42 Arterial Blood Partial Pressure CO2 44 mmHg Arterial Blood Partial Pressure O2 93 mmHg Arterial Blood Oxygen Content 11.9 Vol % Arterial Blood Carboxyhemoglobin 1.2 % Arterial Blood Methemoglobin 1.4 % Blood Gas Hemoglobin 8.9 G/DL Oxygen Delivery Device VENTILATOR Blood Gas Ventilator Setting PRVC16/600/1.1/+8 Blood Gas Inspired Oxygen 60 % Total Protein 5.1 GM/DL 5.0 GM/DL Protein Corrected Calcium 8.5 MG/DL 8.6 MG/DL Alkaline Phosphatase 52 U/L Aspartate Amino Transf (AST/SGOT) 63 U/L Alanine Aminotransferase (ALT/SGPT) 25 U/L Total Bilirubin 3.4 MG/DL Amylase Level 45 U/L Lipase 80 U/L Test 09/15/17 05:15 09/15/17 12:30 White Blood Count 12.4 TH/MM3 Red Blood Count 2.78 MIL/MM3 Hemoglobin 8.5 GM/DL Hematocrit 24.2 % Mean Corpuscular Volume 87.3 FL Mean Corpuscular Hemoglobin 30.6 PG Mean Corpuscular Hemoglobin Concent 35.0 % Red Cell Distribution Width 14.4 % Platelet Count 44 TH/MM3 Mean Platelet Volume 8.7 FL Neutrophils (%) (Auto) 91.7 % Lymphocytes (%) (Auto) 3.9 % Monocytes (%) (Auto) 4.4 % Eosinophils (%) (Auto) 0.0 % Basophils (%) (Auto) 0.0 % Neutrophils # (Auto) 11.3 TH/MM3 Lymphocytes # (Auto) 0.5 TH/MM3 Monocytes # (Auto) 0.5 TH/MM3 Eosinophils # (Auto) 0.0 TH/MM3 Basophils # (Auto) 0.0 TH/MM3 CBC Comment AUTO DIFF Differential Total Cells Counted 100 Neutrophils % (Manual) 73 % Band Neutrophils % 17 % Lymphocytes % 5 % Monocytes % 4 % Neutrophils # (Manual) 11.3 TH/MM3 Myelocytes 1 % Differential Comment FINAL DIFF MANUAL Platelet Estimate LOW Platelet Morphology Comment NORMAL Red Cell Morphology Comment NORMAL Reticulocyte Count 1.5 % Absolute Reticulocyte Count 41.7 MIL/L Prothrombin Time 11.7 SEC Prothromb Time International Ratio 1.2 RATIO Activated Partial Thromboplast Time 30.8 SEC Fibrinogen 492 mg/dL Lactic Acid Level 1.0 mmol/L Culture Results Microbiology Date/Time Source Procedure Growth Status 09/13/17 01:35 Blood Peripheral Aerobic Blood Culture - Preliminary NO GROWTH IN 2 DAYS Resulted 09/13/17 01:35 Blood Peripheral Anaerobic Blood Culture - Preliminary NO GROWTH IN 2 DAYS Resulted 09/13/17 01:30 Blood Peripheral Aerobic Blood Culture - Preliminary NO GROWTH IN 2 DAYS Resulted 09/13/17 01:30 Blood Peripheral Anaerobic Blood Culture - Preliminary NO GROWTH IN 2 DAYS Resulted 09/13/17 10:00 Sputum Endotracheal Gram Stain - Final Complete 09/13/17 10:00 Sputum Endotracheal Sputum Culture - Final MODERATE GROWTH NORMAL RESPIRATORY [place] Complete Imaging Studies Last 24 hours Impressions Liver Ultrasound 09/15/17 0000 Signed Impressions: Service Date/Time: Friday, September 15, 2017 07:34 - CONCLUSION: The liver appears mildly enlarged and decreased in echogenicity concerning for edema. The gallbladder is distended with sludge. No discrete stones are visualized. There is mild wall thickening of the gallbladder present. The spleen is overall normal in size and grossly normal in echotexture. Small amount of free fluid seen adjacent to the spleen. Vida Levine MD Administered Medications Medications (Trade) Dose Ordered Sig/Emilee Route PRN Reason Start Time Stop Time Status Last Admin Dose Admin Pantoprazole Sodium (Protonix Inj) 40 mg DAILY IVP 09/08/17 09:00 09/15/17 08:30 Ondansetron HCl (Zofran Inj) 4 mg Q6H PRN IV PUSH NAUSEA 09/07/17 16:00 09/08/17 01:06 Heparin Sodium (Porcine) (Heparin Inj) 5,000 units Q12H SQ 09/08/17 15:00 Future Hold 09/12/17 02:46 Amlodipine Besylate (Norvasc) 5 mg DAILY PO 09/08/17 09:00 Future Hold 09/10/17 09:50 Metoprolol Succinate (Toprol Xl) 25 mg DAILY PO 09/08/17 09:00 Future Hold 09/10/17 09:50 Hydromorphone HCl (Dilaudid Pf Inj) 0.2 mg Q3H PRN IV PAIN 1-10 09/08/17 21:45 09/10/17 23:32 Metronidazole 100 ml @ 100 mls/hr Q8H IV 09/11/17 14:00 09/15/17 13:10 Sodium Chloride 1,000 ml @ 0 mls/hr Q0M PRN OTHER For Prime & Rinse Back 09/11/17 09:25 09/14/17 18:05 Heparin Sodium (Porcine) (Heparin Inj) UNSCH PRN .XX WITH DIALYSIS 09/11/17 09:30 09/14/17 18:04 Gentamicin Sulfate (Gentamicin Inj) 20 mg UNSCH PRN OTHER WITH DIALYSIS 09/11/17 09:30 09/14/17 18:04 Vasopressin 40 units/Dextrose 100 ml @ 1.5 mls/hr TITRATE PRN IV Blood Pressure Management 09/11/17 11:30 09/14/17 08:40 Amiodarone HCl 450 mg/Sodium Chloride 250 ml @ 33.33 mls/ hr Q7H31M PRN IV Per Protocol 09/11/17 12:00 09/14/17 17:36 Propofol 100 ml @ 2.895 mls/ hr TITRATE PRN IV SEDATION 09/11/17 12:45 09/15/17 08:30 Phenylephrine HCl 80 mg/Dextrose 500 ml @ 15 mls/hr TITRATE PRN IV Blood pressure Management 09/11/17 16:45 09/12/17 07:00 Hydrocortisone Sodium Succinate (SoluCORTEF INJ) 100 mg Q8HR IV 09/11/17 22:00 09/15/17 13:10 Micafungin Sodium 150 mg/Sodium Chloride 100 ml @ 100 mls/hr Q24H IV 09/11/17 18:00 09/14/17 17:36 Fentanyl Citrate 250 ml @ 5 mls/hr TITRATE PRN IV SEDATION 09/12/17 11:00 09/14/17 05:20 Piperacillin Sod/ Tazobactam Sod 50 ml @ 100 mls/hr Q6H IV 09/13/17 20:00 09/15/17 13:09 Artificial Tears (Tears Naturale Opth Soln) 1 drop Q8HR EACH EYE 09/14/17 14:00 09/15/17 13:10 Albuterol/ Ipratropium (Duoneb Neb) 1 ampule Q6HR NEB NEB 09/14/17 10:00 09/15/17 10:10 Levothyroxine Sodium (Synthroid) 50 mcg DAILY@0600 PO 09/15/17 06:00 09/15/17 05:36 Cholecalciferol (Vitamin D Liq) 2,000 units DAILY PO 09/14/17 14:30 09/14/17 14:30 Ceftaroline Fosamil 300 mg/ Sodium Chloride 100 ml @ 100 mls/hr Q12H IV 09/14/17 20:00 09/15/17 08:31 Objective Remarks GENERAL: Older gentleman resting in bed intubated and sedated SKIN: Warm and dry. HEAD: Normocephalic. EYES: No injection or drainage. NECK: Supple, trachea midline. CARDIOVASCULAR: Regular rate and rhythm without murmurs. RESPIRATORY: On 40% FiO2. Clear anteriorly. On 8 of PEEP GASTROINTESTINAL: Abdomen with vertical incision with saima present and covered with abdominal binder. No oozing noted on exam EXTREMITIES: No cyanosis. Generalized edema NEUROLOGICAL: Sedated Assessment/Plan Problem List: (1) Thrombocytopenia ICD Codes: D69.6 - Thrombocytopenia, unspecified Plan: Hx/Workup: Patient is known to have thrombocytopenia that usually is maintained above 100,000. The patient had a exploratory laparotomy with robotic takedown of the splenic flexure due to a large colonic polyp. Unfortunately he developed perforation with sepsis and is now noted to have worsening cytopenias. --Thrombocytopenia likely due to sepsis --The possible drug effect due to the cephalosporin --Continue to monitor CBC Assessment 67-year-old male with history of thrombocytopenia admitted for a large colonic polyp who developed perforation with sepsis and worsening cytopenias Plan 1. Monitor CBC 2. Hold off on platelet transfusion unless patient has oozing or active bleeding 3. Monitor coags Attending Statement The exam, history, and the medical decision-making described in the above note were completed with the assistance of the mid-level provider. I reviewed and agree with the findings presented. I attest that I had a [id number] encounter with the patient on the same day, and personally performed and documented my assessment and findings in the medical record. PT seen and examine with at bedside. No acute bleeding. Noted clinical improvement off pressors. Platelet count still low. Continue to monitor, supportive transfusions. Sheila Patterson Sep 15, 2017 13:21 Shannan Romo MD Sep 15, 2017 16:48
[2017-09-15 13:25] LABS: ALBUMIN 1.8 GM/DL (3.4-5.0); BICARBONATE 27.3 MEQ/L (21.0-32.0); CREATININE 4.68 MG/DL (0.60-1.30); DIRECT BILIRUBIN ADULT 2.7 MG/DL (0.0-0.2); INDIRECT BILIRUBIN 0.5 MG/DL (0.0-0.8); MAGNESIUM 2.6 MG/DL (1.5-2.5); PHOSPHORUS 6.6 MG/DL (2.5-4.9); TOTAL BILIRUBIN ADULT 3.2 MG/DL (0.2-1.0)
[2017-09-15 13:29] LABS: CALCIUM 7.4 MG/DL (8.5-10.1)
--- NOTE | 2017-09-15 14:04 | HHI.CCPN ---
Subjective Remarks/Hospital Course 67-year-old very pleasant gentleman initially admitted for same day surgery for polyp removal. Due to some complications in the OR he required a colonoscopy during the surgery and now he is postop day 4 status post robotic ascending colectomy. He also required bilateral ureteral catheter placement by urology. Postoperatively he was given Toradol, received 12 doses. He is now on IVF, urine output is very low and he has cola colored urine. He continues to be profoundly acidotic and the x-ray today shows pneumoperitoneum that is new compared to previous images. The patient's surgeon Dr. Mcclellan is at the bedside and she is taking him immediately to operating room for a revision. The patient during my exam is not in distress. 09/12: Remains very critical in septic shock. CVVH started yesterday. Remains on Levophed, dontrell-synephrine and and vasopressin plus stress dose steroids. s/p Small bowel enterotomy with leakage of small bowel contents, s/p diverting ileostomy. WBC up to 19.5, platelet count 64 today 09/13: Continues to be intubated remains critical but slight improvement in hemodynamics. Levophed is down to 12 mcg/m remains on vasopressin. Dontrell- Synephrine was restarted overnight currently at 60 mcg/m but will wean to DC. Platelet count further down now 45 most likely from sepsis and consumption. Check hit screen. CVVH filter clot transitioning to hemodialysis today. Appreciate ID consult. WBC count is up to 25.2 today Subjective 09/14: Afebrile. Currently only on vasopressin to maintain mean arterial pressure greater than equal to 65. Norepinephrine is been discontinued along with Dontrell-Synephrine. Platelets currently 31. LDH, haptoglobin and peripheral smear pending. No bleeding apparent. 09/15: May need to replace HD catheter. Objective Vital Signs Date Time Temp Pulse Resp B/P (MAP) Pulse Ox O2 Delivery O2 Flow Rate FiO2 09/15/17 12:00 98.6 70 14 146/66 (92) 94 09/15/17 12:00 50 09/13/17 04:00 Mechanical Ventilator Intake and Output 09/15/17 09/15/17 09/16/17 08:00 16:00 00:00 Intake Total 250 ml Output Total 225 ml Balance 25 ml Result Diagram: 09/15/17 0515 09/15/17 1230 Other Results Microbiology Date/Time Source Procedure Growth Status 09/13/17 10:00 Sputum Endotracheal Gram Stain - Final Complete 09/13/17 10:00 Sputum Endotracheal Sputum Culture - Final MODERATE GROWTH NORMAL RESPIRATORY [place] Complete Laboratory Tests Test 09/14/17 18:00 Blood Gas Puncture Site ART LINE Blood Gas Patient Temperature 98.6 Blood Gas HCO3 28 mmol/L (22-26) Blood Gas Base Excess 3.6 mmol/L (-2-2) Blood Gas Oxygen Saturation 95 % (90-100) Arterial Blood pH 7.42 (7.380-7.420) Arterial Blood Partial Pressure CO2 44 mmHg (38-42) Arterial Blood Partial Pressure O2 93 mmHg (61-120) Arterial Blood Oxygen Content 11.9 Vol % (12.0-20.0) Arterial Blood Carboxyhemoglobin 1.2 % (0-4) Arterial Blood Methemoglobin 1.4 % (0-2) Blood Gas Hemoglobin 8.9 G/DL (12.0-16.0) Oxygen Delivery Device VENTILATOR Blood Gas Ventilator Setting PRVC16/600/1.1/+8 Blood Gas Inspired Oxygen 60 % Imaging Last Impressions Chest X-Ray 09/14/17 0600 Signed Impressions: Service Date/Time: Thursday, September 14, 2017 03:40 - CONCLUSION: No significant interval change. Persistent left lower lobe atelectasis versus consolidation and mild hazy bilateral lung opacity. Valeriy Gagnon MD Abdomen X-Ray 09/13/17 0000 Signed Impressions: Service Date/Time: September 10:52 - CONCLUSION: Gastric tube tip and side-port project over the stomach. Andrés Gardner MD Renal Ultrasound 09/10/17 0000 Signed Impressions: Service Date/Time: Sunday, September 10, 2017 15:17 - CONCLUSION: No evidence of mass or hydronephrosis. Andrés Gardner MD Objective Remarks GENERAL: 67-year-old male currently orotracheally intubated SKIN: Warm and dry. see GI HEAD: Normocephalic. EYES: MARIO. EOMI. MMM. NG ENT: Orotracheally intubated. NG and left nares. NECK: Supple, trachea midline. Right IJ cordis with dual-lumen catheter is clean dry and intact. Left IJ hemodialysis catheter is clean dry and intact CARDIOVASCULAR: Regular rate and rhythm without murmurs, gallops, or rubs. RESPIRATORY: Breath sounds equal bilaterally.. Currently on assist control GASTROINTESTINAL: Abdominal binder in place. ileostomy pink, Dressings c/d/i. BRANDEN x2 with serosanguineous output MUSCULOSKELETAL: With trace bilateral lower extremity edema NEURO EXAM: Arousable on the ventilator will follow commands. Moves all 4 extremities spontaneously. Line: Central Venous Catheter Side: Left Location: Internal, Jugular A/P Assessment and Plan Neuro: Toxic metabolic encephalopathy Patient is currently on a propofol drip at 30 mcg/kg/min/fentanyl drip at 50 mcg /h for sedation/analgesia while intubated Goal of RA SS -2 Daily sedation vacation Resp Acute hypoxemic respiratory failure ACV 16/500/8/50 Ventilator bundle Albuterol/ipratropium aerosols every 6 hours with albuterol aerosols every 2. hours as needed dyspnea Spontaneous breathing trials when clinically indicated Follow-up on chest x-ray in a.m. 09/15 CVS: Severe septic shock Lactic acidosis A fib with RVR, now NSR mild pulmonary hypertension Coronary disease status post stent times 07/2015 History of hypertension History of dyslipidemia -Aggressively fluid resuscitated Currently on vasopressin 0.04 international units a minute to maintain mean arterial pressure greater than equal 65 -Hold all home antihypertensives (metoprolol succinate 25 mg daily and amlodipine 5 mg by mouth daily, and losartan 100 mg by mouth daily Holding aspirin 81 mg by mouth daily with low platelet -Continue Amiodarone drip at 0.5 mcg/min, Cannot anticoagulate due to recent surgery and thrombocytopenia 2D echocardiogram 09/13 - left ventricular systolic function is normal with an estimated ejection fraction in the range of 50-55%. Normal left ventricular size. Wall thickness is normal. No definite regional wall motion abnormalities. There is mild tricuspid regurgitation. The estimated pulmonary arterial pressure is 44 mmHg. On hydrocortisone sodium succinate 100 mg IV every 8 hours Renal//FEN Acute kidney failure Hyponatremia -Most likely secondary to ATN/septic shock -Nephrology Dr. Zhu following, CVVH started 09/11/17, transition to IHD 09/13 -3 L with hemodialysis 09/13. GI/ID Small bowel enterotomy with leakage of small bowel contents, status post ex lap s/p diverting ileostomy POD 3 Peritonitis with septic shock -Status post ascending colectomy 09/07 pod 8 -status post ex lap irrigation and diverting ileostomy for small bowel perforation pod3 -Continue metronidazole, piperacillin/tazobactam, ceftaroline and micafungin and vancomycin. Teflaro added by TALISHA Orozco -Post op Management per Dr. Mcclellan general surgery -Cultures negative to date BRANDEN left --40 SS BRANDEN right --85 SS HEME: Leukocytosis Normocytic anemia Thrombocytopenia -Monitor CBC, coags -Thrombocytopenia secondary to sepsis, DIC Check LDH, haptoglobin and peripheral smear Hematology consultation for persistent thrombocytopenia likely secondary to sepsis/consumptive -Holding sq Heparin, check HIT screen results pending ENDO: Hyperglycemia History of gout Hypothyroidism Sliding scale insulin with NovoLog to maintain euglycemia/low regimen every 6 hours Holding allopurinol 100 mg by mouth daily for gout/home medication Resume levothyroxine 50 mcg by tube daily.. IV levothyroxine limited to myxedema coma only at [place] due to nationwide shortage DVT GI prophylaxis -Luis M's and SCDs -Subcu heparin-hold due to thrombocytopenia -Famotidine Overall impression: Critically ill with persistent sepsis and respiratory failure. Critical Care: The total critical care time was 35 minutes. Time to perform other separately billable procedures was not included in the critical care time. Dawson Ball MD Sep 15, 2017 14:04
[2017-09-15] MEDS: hydrALAZINE HCL 20 MG/ML VIAL IV PUSH PRN ×2 (14:29→21:00)
--- NOTE | 2017-09-15 15:58 | HHI.NPPN ---
Subjective Renal Failure: Acute Review of Systems General General Remarks unable to evaluate Objective Data Data Vital Signs Date Time Temp Pulse Resp B/P (MAP) Pulse Ox O2 Delivery O2 Flow Rate FiO2 09/15/17 14:00 67 09/15/17 12:00 98.6 70 14 146/66 (92) 94 09/15/17 12:00 50 09/15/17 12:00 70 09/15/17 10:10 94 50 09/15/17 10:10 50 09/15/17 10:00 71 09/15/17 08:00 98.5 72 18 146/62 (90) 95 09/15/17 08:00 72 09/15/17 08:00 50 09/15/17 06:00 72 09/15/17 04:36 96 60 09/15/17 04:00 73 09/15/17 04:00 50 09/15/17 04:00 97.5 79 16 143/65 (91) 96 09/15/17 02:00 72 09/15/17 00:37 97 60 09/15/17 00:00 75 09/15/17 00:00 60 09/15/17 00:00 97.9 75 16 142/56 (84) 95 09/14/17 22:00 75 09/14/17 20:40 97 60 09/14/17 20:00 60 09/14/17 20:00 71 09/14/17 20:00 97.4 71 16 129/54 (79) 98 09/14/17 18:35 98.5 78 17 137/57 96 09/14/17 18:00 76 09/14/17 17:36 75 125/49 09/14/17 16:40 94 60 09/14/17 16:00 65 09/14/17 16:00 98.6 78 16 142/48 (79) 96 09/14/17 16:00 78 09/14/17 15:58 97 65 -: 09/15/17 0515 09/15/17 1230 Tubes & Lines: Vas-Cath, Canela Tubes & Lines Comment TLC right IJ VC left IJ A line ileostomy RLQ BRANDEN drains x 2 abd Drip Comment fentanyl and propofol for sedation Physical Exam General Appearance: Well Developed, Comfortable Throat Throat Exam: Oral Mucosa [place] & Moist Neck Neck Exam: Neck Supple Pulmonary Resp Exam: Breath Sounds Equal, No Distress, Decreased Bases Gastrointestinal/Abdomen GI Exam: Distended, Bowel Sounds Hypoactive Musculoskeletal MS Exam: Joints Intact, Good Strength, Unable to Ambulate Integumentary Skin Exam: Warm, Dry, Intact Extremeties Extremities Exam: Pedal Pulses Palpable, Moderate Edema Neurologic Neuro Exam: Unresponsive, Sedated Psychiatric Psych Exam: Appropriate Responses VTE Prophylaxis Device: SCDs Assessment/Plan Assessment Summary: JOSEF/Acute Renal Failure, Acute Tubular Necrosis, Hypotension Electrolyte Assessment: Hypocalcemia, Metabolic Acidosis Problem List: (1) JOSEF (acute kidney injury) ICD Codes: N17.9 - Acute kidney failure, unspecified Plan: His renal function is normal at baseline JOSEF due to ATN He has become anuric Vascath placed 09/11; had CRRT 09/11-09/12. IHD started 09/13. 3L UF Patient is seen during hemodialysis ultrafiltration on 4 L Has edema Continue supportive care Avoid nephrotoxic agents and dose medications appropriate to renal status. (2) S/P partial colectomy ICD Codes: Z90.49 - Acquired absence of other specified parts of digestive tract Plan: He has developed small bowel perforation after robotic surgery, s/p emergent ex lap with I&D 09/11 Management per surgery , has ileostomy that is draining He has hemodynamic instability, continue supportive care Currently NPO Prognosis is guarded. (3) Sepsis ICD Codes: A41.9 - Sepsis, unspecified organism Plan: Antibiotics include Zosyn, micafungin, flagyl, and ceftaroline monitor drug levels when appropriate ID is following (4) Hypocalcemia ICD Codes: E83.51 - Hypocalcemia Plan: Improving with replacement start liquid vitamin D for deficiency Ramu Breen MD Sep 15, 2017 15:58
[2017-09-15] MEDS ORDERED: CEFEPIME INJ 2,000 MG in SODIUM CHLORIDE 0.9% INJ 100 ML IV SCH (17:00)
[2017-09-15] MEDS: HEPARIN SODIUM - IV 10,000 UNITS/10 ML VIAL PRN (17:30)
[2017-09-15] MEDS: GENTAMICIN SULFATE 20 MG/2 ML VIAL OTHER PRN (17:30)
[2017-09-15] MEDS: SODIUM CHLOR 0.9% 1000 ML INJ 1,000 ML OTHER PRN (17:31)
[2017-09-15] MEDS: SODIUM CHLORIDE 0.9% FLUSH 10 ML FLUSH IV FLUSH PRN (17:31)
[2017-09-15] MEDS: MICAFUNGIN INJ 150 MG in SODIUM CHLORIDE 0.9% INJ 100 ML IV SCH (17:50)
--- NOTE | 2017-09-15 18:53 | HHI.IDPN ---
Subjective Subjective Remarks is a 67 y/o CM with PMHx significant for CAD, s/p PCI and stents. He was repeatedly diagnosed with sessile polyp and underwent exploratory laparoscopy with robotic takedown of splenic flexure, colonoscopy with tattooing and robotic ascending colectomy on 09/07/17 by . Reportedly, the urine output was low and urology was consulted when despite IVF urine output did not increase. Patient was seen by and underwent cystoscopy and bilateral ureteral catheter insertion with 500 cc of urine obtained. During the hospital stay patient subsequently had abdominal distention and despite NG tube to suction continued to have worsening distention and discomfort. A KUB done earlier on the day of CT on 09/11/2017 was negative for free air but subsequent imaging showed free air so patient was emergently taken to the OR by . Patient was found to have a small bowel defect and large amounts of of bowel contents were visible in peritoneum per op note. Critical Care was consulted and patient is currently being treated for Septic Shock with multiple pressors, IVF boluses given yday. He had low urine output and Nephrology is on the case and CVVHD initiated. Patient had issues with clotting of access line so CVVHD has been interrupted off and on. Patient is currently intubated on a ventilator. Not much resp secretions. Ileostomy output ok. Platelets have been low but no obvious bleeding from any sites. Patient remains sedated on vent. Patient has been started on empiric antibiotics Zosyn IV, Vanco IV x 1 dose, Flagyl IV, Micafungin IV. Left IJ Vascath placed on 09/11/2017 ID consulted for evaluation and Mment of Septic Shock, Secondary peritonitis. Overnight events reviewed. HD Platelets low again. Hematology consulted. No fevers No rash No diarrhea Antibiotics Teflaro IV Zosyn IV Flagyl IV Micafungin IV Lines Line sites with no e.o infection Past Medical History reviewed Allergies: Coded Allergies: No Known Allergies (Unverified Allergy, Unknown, 09/07/17) Objective . Vital Signs Date Time Temp Pulse Resp B/P (MAP) Pulse Ox O2 Delivery O2 Flow Rate FiO2 09/15/17 18:00 71 09/15/17 16:43 94 50 09/15/17 16:00 97.9 64 16 122/52 (75) 93 09/15/17 16:00 64 4/7/18 16:00 50 09/15/17 14:00 67 09/15/17 12:00 98.6 70 14 146/66 (92) 94 09/15/17 12:00 50 09/15/17 12:00 70 09/15/17 10:10 94 50 09/15/17 10:10 50 09/15/17 10:00 71 09/15/17 08:00 98.5 72 18 146/62 (90) 95 09/15/17 08:00 72 09/15/17 08:00 50 09/15/17 06:00 72 09/15/17 04:36 96 60 09/15/17 04:00 73 09/15/17 04:00 50 09/15/17 04:00 97.5 79 16 143/65 (91) 96 09/15/17 02:00 72 09/15/17 00:37 97 60 09/15/17 00:00 75 09/15/17 00:00 60 09/15/17 00:00 97.9 75 16 142/56 (84) 95 09/14/17 22:00 75 09/14/17 20:40 97 60 09/14/17 20:00 60 09/14/17 20:00 71 09/14/17 20:00 97.4 71 16 129/54 (79) 98 09/15/17 09/15/17 09/16/17 15:00 23:00 07:00 Intake Total 500 ml 100 ml Output Total 160 ml Balance 500 ml -60 ml IV Total 500 ml 100 ml Output Urine Total 50 ml Stool Total 50 ml Gastric Drainage Total 0 ml Drainage Total 60 ml . Laboratory Tests Test 09/14/17 04:15 09/14/17 09:10 09/15/17 05:15 White Blood Count 15.1 TH/MM3 12.4 TH/MM3 Red Blood Count 2.93 MIL/MM3 2.78 MIL/MM3 Hemoglobin 8.8 GM/DL 8.5 GM/DL Hematocrit 25.9 % 24.2 % Mean Corpuscular Volume 88.3 FL 87.3 FL Mean Corpuscular Hemoglobin 30.0 PG 30.6 PG Mean Corpuscular Hemoglobin Concent 34.0 % 35.0 % Red Cell Distribution Width 14.4 % 14.4 % Platelet Count 31 TH/MM3 44 TH/MM3 Mean Platelet Volume 9.5 FL 8.7 FL Neutrophils (%) (Auto) 91.8 % 91.7 % Lymphocytes (%) (Auto) 4.1 % 3.9 % Monocytes (%) (Auto) 4.0 % 4.4 % Eosinophils (%) (Auto) 0.0 % 0.0 % Basophils (%) (Auto) 0.1 % 0.0 % Neutrophils # (Auto) 13.9 TH/MM3 11.3 TH/MM3 Lymphocytes # (Auto) 0.6 TH/MM3 0.5 TH/MM3 Monocytes # (Auto) 0.6 TH/MM3 0.5 TH/MM3 Eosinophils # (Auto) 0.0 TH/MM3 0.0 TH/MM3 Basophils # (Auto) 0.0 TH/MM3 0.0 TH/MM3 CBC Comment AUTO DIFF AUTO DIFF Differential Total Cells Counted 100 100 Neutrophils % (Manual) 74 % 73 % Band Neutrophils % 21 % 17 % Lymphocytes % 2 % 5 % Monocytes % 2 % 4 % Neutrophils # (Manual) 14.5 TH/MM3 11.3 TH/MM3 Metamyelocytes 1 % Differential Comment FINAL DIFF MANUAL FINAL DIFF MANUAL Toxic Granulation 2+ Platelet Estimate LOW LOW Platelet Morphology Comment NORMAL NORMAL Blood Smear Pathologist Review Haptoglobin 252 MG/DL Myelocytes 1 % Red Cell Morphology Comment NORMAL Reticulocyte Count 1.5 % Absolute Reticulocyte Count 41.7 MIL/L Laboratory Tests Test 09/13/17 20:43 09/14/17 02:35 09/14/17 04:15 09/14/17 09:10 Blood Urea Nitrogen 48 MG/DL 57 MG/DL 59 MG/DL Creatinine 3.94 MG/DL 4.17 MG/DL 4.27 MG/DL Random Glucose 132 MG/DL 141 MG/DL 131 MG/DL Albumin 1.4 GM/DL 1.3 GM/DL 1.4 GM/DL Calcium Level 7.0 MG/DL 7.5 MG/DL 7.4 MG/DL Phosphorus Level 4.4 MG/DL 4.6 MG/DL 4.9 MG/DL Magnesium Level 2.1 MG/DL 2.1 MG/DL 2.2 MG/DL 2.3 MG/DL Sodium Level 135 MEQ/L 136 MEQ/L 134 MEQ/L Potassium Level 3.7 MEQ/L 3.8 MEQ/L 3.9 MEQ/L Chloride Level 97 MEQ/L 98 MEQ/L 96 MEQ/L Carbon Dioxide Level 27.8 MEQ/L 27.3 MEQ/L 26.5 MEQ/L Anion Gap 10 MEQ/L 11 MEQ/L 12 MEQ/L Estimat Glomerular Filtration Rate 15 ML/MIN 14 ML/MIN 14 ML/MIN Total Protein 4.4 GM/DL Protein Corrected Calcium 9.0 MG/DL Test 09/14/17 16:15 09/15/17 01:35 09/15/17 05:10 09/15/17 05:15 Blood Urea Nitrogen 65 MG/DL 60 MG/DL 64 MG/DL Creatinine 4.23 MG/DL 4.03 MG/DL 4.34 MG/DL Random Glucose 115 MG/DL 118 MG/DL 116 MG/DL Albumin 1.8 GM/DL 1.9 GM/DL 1.9 GM/DL Calcium Level 7.5 MG/DL 7.4 MG/DL 7.4 MG/DL Phosphorus Level 4.5 MG/DL 4.8 MG/DL 5.3 MG/DL Magnesium Level 2.2 MG/DL 2.4 MG/DL 2.4 MG/DL Lactate Dehydrogenase 262 U/L Sodium Level 137 MEQ/L 137 MEQ/L 137 MEQ/L Potassium Level 3.9 MEQ/L 3.9 MEQ/L 4.0 MEQ/L Chloride Level 97 MEQ/L 98 MEQ/L 98 MEQ/L Carbon Dioxide Level 27.1 MEQ/L 27.8 MEQ/L 26.9 MEQ/L Anion Gap 13 MEQ/L 11 MEQ/L 12 MEQ/L Estimat Glomerular Filtration Rate 14 ML/MIN 15 ML/MIN 14 ML/MIN Total Protein 5.1 GM/DL 5.0 GM/DL Protein Corrected Calcium 8.5 MG/DL 8.6 MG/DL Alkaline Phosphatase 52 U/L Aspartate Amino Transf (AST/SGOT) 63 U/L Alanine Aminotransferase (ALT/SGPT) 25 U/L Total Bilirubin 3.4 MG/DL Amylase Level 45 U/L Lipase 80 U/L Lactic Acid Level 1.0 mmol/L Test 09/15/17 12:30 Blood Urea Nitrogen 78 MG/DL Creatinine 4.68 MG/DL Random Glucose 127 MG/DL Albumin 1.8 GM/DL Calcium Level 7.4 MG/DL Phosphorus Level 6.6 MG/DL Magnesium Level 2.6 MG/DL Total Bilirubin 3.2 MG/DL Direct Bilirubin 2.7 MG/DL Sodium Level 136 MEQ/L Potassium Level 4.1 MEQ/L Chloride Level 97 MEQ/L Carbon Dioxide Level 27.3 MEQ/L Anion Gap 12 MEQ/L Estimat Glomerular Filtration Rate 13 ML/MIN Indirect Bilirubin 0.5 MG/DL Amylase Level 50 U/L Lipase 105 U/L Thyroid Stimulating Hormone 3rd Gen 2.750 uIU/ML Microbiology Date/Time Source Procedure Growth Status 09/13/17 01:35 Blood Peripheral Aerobic Blood Culture - Preliminary NO GROWTH IN 2 DAYS Resulted 09/13/17 01:35 Blood Peripheral Anaerobic Blood Culture - Preliminary NO GROWTH IN 2 DAYS Resulted 09/13/17 01:30 Blood Peripheral Aerobic Blood Culture - Preliminary NO GROWTH IN 2 DAYS Resulted 09/13/17 01:30 Blood Peripheral Anaerobic Blood Culture - Preliminary NO GROWTH IN 2 DAYS Resulted 09/13/17 10:00 Sputum Endotracheal Gram Stain - Final Complete 09/13/17 10:00 Sputum Endotracheal Sputum Culture - Final MODERATE GROWTH NORMAL RESPIRATORY [place] Complete Imaging Last Impressions Chest X-Ray 09/13/17 0600 Signed Impressions: Service Date/Time: September 05:23 - CONCLUSION: Slight interval worsening in aeration. iMchele Coleman MD Abdomen X-Ray 09/13/17 0000 Signed Impressions: Service Date/Time: September 10:52 - CONCLUSION: Gastric tube tip and side-port project over the stomach. Andrés Gardner MD Renal Ultrasound 09/10/17 0000 Signed Impressions: Service Date/Time: Sunday, September 10, 2017 15:17 - CONCLUSION: No evidence of mass or hydronephrosis. Andrés Gardner MD Physical Exam GENERAL: This is a well-nourished, well-developed patient, in no apparent distress. SKIN: No rashes, ecchymoses or lesions. Cool and dry. HEAD: Atraumatic. Normocephalic. No temporal or scalp tenderness. EYES: Pupils equal round and reactive. No scleral icterus. No injection or drainage. ENT: Intubated. NECK: Trachea midline. Supple, nontender, no meningeal signs. CARDIOVASCULAR: HS audible. RESPIRATORY: Clear to auscultation. Breath sounds equal bilaterally but decreased in the bases. GASTROINTESTINAL: Abdomen soft, Ostomy bag with liquid stool. MUSCULOSKELETAL: Extremities without clubbing, cyanosis. Pedal edema noted. No joint tenderness, effusion, or edema noted. No calf tenderness. Negative Homans sign bilaterally. NEUROLOGICAL: Sedated Psych could not be assessed IV line sites with no e.o infection. Assessment & Plan Remarks Severe Sepsis with Shock Secondary peritonitis due to small bowel perforation s/p Enterostomy and washout s/p robotic splenic flexure takedown on 09/07/17 s/p cystoscopy with bilateral ureteroscopies on 09/07/2017 Thrombocytopenia: sepsis, DIC Acute renal failure: prerenal, sepsis. On CVVHD. Recs: DC Zosyn IV. DC Teflaro IV Continue Micafungin IV (will deescalate to Diflucan in am) Start Cefepime IV Continue Flagyl IV for anaerobic coverage. Doubt the low platelet is from current regimen but changed it. Likely due to severe sepsis septic shock related BM shutdown. Follow cultures Follow clinically. Lu Escobar RN, MD Sep 15, 2017 18:53
[2017-09-15 21:08] LABS: ALBUMIN 1.9 GM/DL (3.4-5.0); BICARBONATE 25.9 MEQ/L (21.0-32.0); CALCIUM 7.7 MG/DL (8.5-10.1); CREATININE 3.76 MG/DL (0.60-1.30); DIRECT BILIRUBIN ADULT 2.6 MG/DL (0.0-0.2); INDIRECT BILIRUBIN 0.5 MG/DL (0.0-0.8); MAGNESIUM 2.4 MG/DL (1.5-2.5); PHOSPHORUS 5.4 MG/DL (2.5-4.9); TOTAL BILIRUBIN ADULT 3.1 MG/DL (0.2-1.0)
[2017-09-16] VITALS (17 sets, daily range): BP systolic 100–163; BP diastolic 48–63; PULSE 68–86; RESP 14–19; TEMP 97.9–98.9; O2SAT 92–96
[2017-09-16] MEDS: AMIODARONE INJ 450 MG in SODIUM CHLOR 0.9% (EXCEL) INJ 241 ML IV PRN ×2 (00:17→15:59)
[2017-09-16 03:05] LABS: ALBUMIN 1.7 GM/DL (3.4-5.0); BICARBONATE 26.5 MEQ/L (21.0-32.0); CALCIUM 7.5 MG/DL (8.5-10.1); CREATININE 4.11 MG/DL (0.60-1.30); MAGNESIUM 2.5 MG/DL (1.5-2.5); PHOSPHORUS 5.1 MG/DL (2.5-4.9)
[2017-09-16] MEDS: RESP: ALBUTEROL 2.5 MG/IPRATROPIUM 0.5 MG NEB (SCH) NEB ×4 (03:12→19:19)
[2017-09-16] MEDS: INSULIN ASPART SUPPLEMENTAL SCALE SQ SCH ×5 (06:00→23:55)
[2017-09-16 06:01] LABS: AUTOMATED NEUTROPHIL # 10.7 TH/MM3 (1.8-7.7); BASOPHIL % 0.2 % (0.0-2.0); EOSINOPHIL % 0.1 % (0.0-4.0); HEMATOCRIT 25.5 % (39.0-51.0); HEMOGLOBIN 8.9 GM/DL (13.0-17.0); LYMPH % 5.1 % (9.0-44.0); LYMPHOCYTE # 0.6 TH/MM3 (1.0-4.8); MEAN CELL VOLUME 86.6 FL (80.0-100.0); MEAN CORPUSCULAR HEMOGLOBIN 30.3 PG (27.0-34.0); MEAN CORPUSCULAR HGB CONC 34.9 % (32.0-36.0); MEAN PLATELET VOLUME 9.6 FL (7.0-11.0); MONO % 4.8 % (0.0-8.0); MONOCYTE # 0.6 TH/MM3 (0-0.9); NEUT % 89.8 % (16.0-70.0); PLATELET COUNT 56 TH/MM3 (150-450); RED BLOOD COUNT 2.94 MIL/MM3 (4.50-5.90); RED CELL DISTRIBUTION WIDTH 14.6 % (11.6-17.2); WHITE BLOOD COUNT 11.9 TH/MM3 (4.0-11.0)
[2017-09-16] MEDS: PROPOFOL 1000 MG/100 ML INJ 100 ML IV PRN ×4 (06:11→21:21)
[2017-09-16] MEDS: ARTIFICIAL TEARS OPTH SOLN 15 ML BTL EACH EYE SCH ×3 (06:12→21:23)
[2017-09-16] MEDS: HYDROCORTISONE SOD SUCCINATE 100 MG VIAL IV SCH ×3 (06:12→21:22)
[2017-09-16] MEDS: LEVOTHYROXINE SODIUM 50 MCG TAB PO SCH (06:12)
[2017-09-16 06:15] LABS: INTERNATIONAL NORMALIZED RATIO 1.2 RATIO; PROTHROMBIN TIME - PATIENT 11.9 SEC (9.8-11.6)
[2017-09-16 07:35] LABS: BANDS 10 % (0-6); LYMPHOCYTES 5 % (9-44); METAMYELOCYTES 4 % (0-1); MONOCYTES 1 % (0-8); MYELOCYTES 2 % (0-0); NEUTROPHIL # MANUAL DIFF 11.2 TH/MM3 (1.8-7.7); POLYS (SEG NEUTROPHILS) 78 % (16-70)
[2017-09-16] MEDS: metroNIDAZOLE 500 MG INJ 100 ML IV SCH ×2 (08:49→20:13)
[2017-09-16] MEDS: PANTOPRAZOLE SODIUM 40 MG VIAL IVP SCH (08:49)
[2017-09-16] MEDS: fentaNYL DRIP 250 ML IV PRN (08:49)
[2017-09-16] MEDS: CHOLECALCIFEROL (VIT D3) LIQ 400 UNITS/ML 50 ML BOTTLE PO SCH (09:00)
[2017-09-16 10:10] LABS: ALBUMIN 1.7 GM/DL (3.4-5.0); BICARBONATE 26.8 MEQ/L (21.0-32.0); CALCIUM 7.4 MG/DL (8.5-10.1); CREATININE 4.44 MG/DL (0.60-1.30); MAGNESIUM 2.5 MG/DL (1.5-2.5); PHOSPHORUS 5.5 MG/DL (2.5-4.9)
--- NOTE | 2017-09-16 11:56 | HHI.PR ---
Subjective Remarks C/R Surg POD afebrile, VSS on CPAP Little UO drains little NGT less residual Objective - Vital Signs Date Time Temp Pulse Resp B/P (MAP) Pulse Ox O2 Delivery O2 Flow Rate FiO2 09/16/17 10:00 73 09/16/17 08:50 45 09/16/17 08:50 92 09/16/17 08:00 98.5 18 136/48 (77) 09/13/17 04:00 Mechanical Ventilator Result Diagram: 09/16/17 0520 09/16/17 0900 Objective Remarks PE sedated On vent Abd - full, wound dry, drains min, some stoma output edema A/P Assessment and Plan Imp: cont rsp weaqning - not strong enough for extubation dialysis try NGT feedings ROM extr Delano Resendiz MD Sep 16, 2017 11:56
--- NOTE | 2017-09-16 12:26 | HHI.NPPN ---
Subjective Renal Failure: Acute Review of Systems General General Remarks unable to evaluate Objective Data Data Vital Signs Date Time Temp Pulse Resp B/P (MAP) Pulse Ox O2 Delivery O2 Flow Rate FiO2 09/16/17 10:00 73 09/16/17 08:50 45 09/16/17 08:50 92 45 09/16/17 08:00 74 09/16/17 08:00 45 09/16/17 08:00 98.5 74 18 136/48 (77) 94 09/16/17 06:00 78 09/16/17 04:00 98.4 68 16 125/48 (73) 95 09/16/17 04:00 45 09/16/17 04:00 68 09/16/17 03:13 94 45 09/16/17 02:00 69 09/16/17 00:17 73 160/55 09/16/17 00:00 98.3 77 16 163/57 (92) 96 09/16/17 00:00 45 09/16/17 00:00 69 09/15/17 23:44 100 45 09/15/17 22:00 71 09/15/17 20:00 96 50 09/15/17 20:00 50 09/15/17 20:00 98.1 73 16 164/63 (96) 100 09/15/17 20:00 77 09/15/17 18:00 71 09/15/17 16:43 94 50 09/15/17 16:00 97.9 64 16 122/52 (75) 93 09/15/17 16:00 64 09/15/17 16:00 50 09/15/17 14:00 67 -: 09/16/17 0520 09/16/17 0900 Tubes & Lines: Vas-Cath, Canela Tubes & Lines Comment TLC right IJ VC left IJ A line ileostomy RLQ BRANDEN drains x 2 abd Drip Comment fentanyl and propofol for sedation Physical Exam General Appearance: Well Developed, Comfortable Throat Throat Exam: Oral Mucosa [place] & Moist Neck Neck Exam: Neck Supple Pulmonary Resp Exam: Breath Sounds Equal, No Distress, Decreased Bases Gastrointestinal/Abdomen GI Exam: Distended, Bowel Sounds Hypoactive Musculoskeletal MS Exam: Joints Intact, Good Strength, Unable to Ambulate Integumentary Skin Exam: Warm, Dry, Intact Extremeties Extremities Exam: Pedal Pulses Palpable, Moderate Edema Neurologic Neuro Exam: Unresponsive, Sedated Psychiatric Psych Exam: Appropriate Responses VTE Prophylaxis Device: SCDs Assessment/Plan Assessment Summary: JOESF/Acute Renal Failure, Acute Tubular Necrosis, Hypotension Electrolyte Assessment: Hypocalcemia, Metabolic Acidosis Problem List: (1) JOSEF (acute kidney injury) ICD Codes: N17.9 - Acute kidney failure, unspecified Plan: His renal function is normal at baseline JOSEF due to ATN He has become anuric Vascath placed 09/11; had CRRT 09/11-09/12. IHD started 09/13. 3L UF Patient HD yesterday UF 3 L Has edema Continue supportive care Avoid nephrotoxic agents and dose medications appropriate to renal status. Dr. Zhu to follow (2) S/P partial colectomy ICD Codes: Z90.49 - Acquired absence of other specified parts of digestive tract Plan: He has developed small bowel perforation after robotic surgery, s/p emergent ex lap with I&D 09/11 Management per surgery , has ileostomy that is draining He has hemodynamic instability, continue supportive care Currently NPO Prognosis is guarded. (3) Sepsis ICD Codes: A41.9 - Sepsis, unspecified organism Plan: Antibiotics include Zosyn, micafungin, flagyl, and ceftaroline monitor drug levels when appropriate ID is following (4) Hypocalcemia ICD Codes: E83.51 - Hypocalcemia Plan: Improving with replacement start liquid vitamin D for deficiency Ramu Breen MD Sep 16, 2017 12:26
--- NOTE | 2017-09-16 13:17 | PD.ONC.PN ---
Subjective Subjective Remarks Afebrile No oozing He is getting dialyzed again today On CPAP Objective Data Date Time Temp Pulse Resp B/P (MAP) Pulse Ox O2 Delivery O2 Flow Rate FiO2 09/16/17 12:27 93 45 09/16/17 12:00 98.9 71 14 145/63 (90) 93 09/16/17 12:00 71 09/16/17 12:00 45 09/16/17 10:00 73 09/16/17 08:50 45 09/16/17 08:50 92 45 09/16/17 08:00 74 09/16/17 08:00 45 09/16/17 08:00 98.5 74 18 136/48 (77) 94 09/16/17 06:00 78 09/16/17 04:00 98.4 68 16 125/48 (73) 95 09/16/17 04:00 45 09/16/17 04:00 68 09/16/17 03:13 94 45 09/16/17 02:00 69 09/16/17 00:17 73 160/55 09/16/17 00:00 98.3 77 16 163/57 (92) 96 09/16/17 00:00 45 09/16/17 00:00 69 09/15/17 23:44 100 45 09/15/17 22:00 71 09/15/17 20:00 96 50 09/15/17 20:00 50 09/15/17 20:00 98.1 73 16 164/63 (96) 100 09/15/17 20:00 77 09/15/17 18:00 71 09/15/17 16:43 94 50 09/15/17 16:00 97.9 64 16 122/52 (75) 93 09/15/17 16:00 64 09/15/17 16:00 50 09/15/17 14:00 67 09/16/17 09/16/17 09/16/17 07:00 15:00 23:00 Intake Total 550 ml Output Total 240 ml Balance 310 ml Result Diagram: 09/16/17 0520 09/16/17 0900 Laboratory Results Laboratory Tests Test 09/15/17 20:10 09/16/17 02:00 09/16/17 05:20 09/16/17 09:00 Blood Urea Nitrogen 59 MG/DL 66 MG/DL 78 MG/DL Creatinine 3.76 MG/DL 4.11 MG/DL 4.44 MG/DL Random Glucose 119 MG/DL 108 MG/DL 92 MG/DL Albumin 1.9 GM/DL 1.7 GM/DL 1.7 GM/DL Calcium Level 7.7 MG/DL 7.5 MG/DL 7.4 MG/DL Phosphorus Level 5.4 MG/DL 5.1 MG/DL 5.5 MG/DL Magnesium Level 2.4 MG/DL 2.5 MG/DL 2.5 MG/DL Total Bilirubin 3.1 MG/DL Direct Bilirubin 2.6 MG/DL Sodium Level 139 MEQ/L 140 MEQ/L 137 MEQ/L Potassium Level 4.2 MEQ/L 4.1 MEQ/L 3.9 MEQ/L Chloride Level 99 MEQ/L 100 MEQ/L 99 MEQ/L Carbon Dioxide Level 25.9 MEQ/L 26.5 MEQ/L 26.8 MEQ/L Anion Gap 14 MEQ/L 14 MEQ/L 11 MEQ/L Estimat Glomerular Filtration Rate 16 ML/MIN 15 ML/MIN 13 ML/MIN Indirect Bilirubin 0.5 MG/DL White Blood Count 11.9 TH/MM3 Red Blood Count 2.94 MIL/MM3 Hemoglobin 8.9 GM/DL Hematocrit 25.5 % Mean Corpuscular Volume 86.6 FL Mean Corpuscular Hemoglobin 30.3 PG Mean Corpuscular Hemoglobin Concent 34.9 % Red Cell Distribution Width 14.6 % Platelet Count 56 TH/MM3 Mean Platelet Volume 9.6 FL Neutrophils (%) (Auto) 89.8 % Lymphocytes (%) (Auto) 5.1 % Monocytes (%) (Auto) 4.8 % Eosinophils (%) (Auto) 0.1 % Basophils (%) (Auto) 0.2 % Neutrophils # (Auto) 10.7 TH/MM3 Lymphocytes # (Auto) 0.6 TH/MM3 Monocytes # (Auto) 0.6 TH/MM3 Eosinophils # (Auto) 0.0 TH/MM3 Basophils # (Auto) 0.0 TH/MM3 CBC Comment AUTO DIFF Differential Total Cells Counted 100 Neutrophils % (Manual) 78 % Band Neutrophils % 10 % Lymphocytes % 5 % Monocytes % 1 % Neutrophils # (Manual) 11.2 TH/MM3 Metamyelocytes 4 % Myelocytes 2 % Differential Comment FINAL DIFF MANUAL Platelet Estimate LOW Platelet Morphology Comment NORMAL Red Cell Morphology Comment NORMAL Prothrombin Time 11.9 SEC Prothromb Time International Ratio 1.2 RATIO Activated Partial Thromboplast Time 38.1 SEC Fibrinogen 429 mg/dL Administered Medications Medications (Trade) Dose Ordered Sig/Emilee Route PRN Reason Start Time Stop Time Status Last Admin Dose Admin Pantoprazole Sodium (Protonix Inj) 40 mg DAILY IVP 09/08/17 09:00 09/16/17 08:49 Ondansetron HCl (Zofran Inj) 4 mg Q6H PRN IV PUSH NAUSEA 09/07/17 16:00 09/08/17 01:06 Heparin Sodium (Porcine) (Heparin Inj) 5,000 units Q12H SQ 09/08/17 15:00 Future Hold 09/12/17 02:46 Amlodipine Besylate (Norvasc) 5 mg DAILY PO 09/08/17 09:00 Future Hold 09/10/17 09:50 Metoprolol Succinate (Toprol Xl) 25 mg DAILY PO 09/08/17 09:00 Future Hold 09/10/17 09:50 Hydromorphone HCl (Dilaudid Pf Inj) 0.2 mg Q3H PRN IV PAIN 1-10 09/08/17 21:45 09/10/17 23:32 Sodium Chloride 1,000 ml @ 0 mls/hr Q0M PRN OTHER For Prime & Rinse Back 09/11/17 09:25 09/15/17 17:31 Sodium Chloride (NS Flush) 5 ml UNSCH PRN IV FLUSH WITH DIALYSIS 09/11/17 09:30 09/15/17 17:31 Heparin Sodium (Porcine) (Heparin Inj) UNSCH PRN .XX WITH DIALYSIS 09/11/17 09:30 09/15/17 17:30 Gentamicin Sulfate (Gentamicin Inj) 20 mg UNSCH PRN OTHER WITH DIALYSIS 09/11/17 09:30 09/15/17 17:30 Vasopressin 40 units/Dextrose 100 ml @ 1.5 mls/hr TITRATE PRN IV Blood Pressure Management 09/11/17 11:30 09/14/17 08:40 Amiodarone HCl 450 mg/Sodium Chloride 250 ml @ 33.33 mls/ hr Q7H31M PRN IV Per Protocol 09/11/17 12:00 09/16/17 00:17 Propofol 100 ml @ 2.895 mls/ hr TITRATE PRN IV SEDATION 09/11/17 12:45 09/16/17 11:30 Phenylephrine HCl 80 mg/Dextrose 500 ml @ 15 mls/hr TITRATE PRN IV Blood pressure Management 09/11/17 16:45 09/12/17 07:00 Hydrocortisone Sodium Succinate (SoluCORTEF INJ) 100 mg Q8HR IV 09/11/17 22:00 09/16/17 06:12 Micafungin Sodium 150 mg/Sodium Chloride 100 ml @ 100 mls/hr Q24H IV 09/11/17 18:00 09/15/17 17:50 Fentanyl Citrate 250 ml @ 5 mls/hr TITRATE PRN IV SEDATION 09/12/17 11:00 09/16/17 08:49 Artificial Tears (Tears Naturale Opth Soln) 1 drop Q8HR EACH EYE 09/14/17 14:00 09/16/17 06:12 Albuterol/ Ipratropium (Duoneb Neb) 1 ampule Q6HR NEB NEB 09/14/17 10:00 09/16/17 08:49 Levothyroxine Sodium (Synthroid) 50 mcg DAILY@0600 PO 09/15/17 06:00 09/16/17 06:12 Cholecalciferol (Vitamin D Liq) 2,000 units DAILY PO 09/14/17 14:30 09/16/17 09:00 Hydralazine HCl (Apresoline Inj) 10 mg Q30M PRN IV PUSH SBP > 170 09/15/17 14:00 09/15/17 21:00 Cefepime HCl 2000 mg/Sodium Chloride 100 ml @ 200 mls/hr Q24H IV 09/15/17 17:00 09/15/17 17:50 Metronidazole 100 ml @ 100 mls/hr Q8H IV 09/15/17 16:00 09/16/17 08:49 Objective Remarks GENERAL: Older gentleman resting in bed intubated and sedated SKIN: Warm and dry. HEAD: Normocephalic. EYES: No injection or drainage. NECK: Supple, trachea midline. CARDIOVASCULAR: Regular rate and rhythm without murmurs. RESPIRATORY: On 40% FiO2. Clear anteriorly. On CPAP GASTROINTESTINAL: Abdomen with vertical incision with saima present and covered with abdominal binder. No oozing noted on exam EXTREMITIES: No cyanosis. Generalized edema NEUROLOGICAL: Sedated Assessment/Plan Problem List: (1) Thrombocytopenia ICD Codes: D69.6 - Thrombocytopenia, unspecified Plan: Hx/Workup: Patient is known to have thrombocytopenia that usually is maintained above 100,000. The patient had a exploratory laparotomy with robotic takedown of the splenic flexure due to a large colonic polyp. Unfortunately he developed perforation with sepsis and is now noted to have worsening cytopenias. --Thrombocytopenia likely due to sepsis --The possible drug effect due to the cephalosporin --Continue to monitor CBC Assessment 67-year-old male with history of thrombocytopenia admitted for a large colonic polyp who developed perforation with sepsis and worsening cytopenias Plan 1. No transfusion today 2. Noted platelet count mildly improved 3. Continue to monitor CBC, coags. Attending Statement The exam, history, and the medical decision-making described in the above note were completed with the assistance of the mid-level provider. I reviewed and agree with the findings presented. I attest that I had a [id number] encounter with the patient on the same day, and personally performed and documented my assessment and findings in the medical record. Events last 24 hours noted, new Vascath L subclavian. No bleeding. Platelet count still low but improving. No significant change. Continue support. Sheila Patterson Sep 16, 2017 13:17 Shannan Romo MD Sep 16, 2017 18:06
--- NOTE | 2017-09-16 13:58 | HHI.IDPN ---
Subjective Subjective Remarks Patient is seen and examined with Dr. Orozco is a 67 y/o CM with PMHx significant for CAD, s/p PCI and stents. He was repeatedly diagnosed with sessile polyp and underwent exploratory laparoscopy with robotic takedown of splenic flexure, colonoscopy with tattooing and robotic ascending colectomy on 09/07/17 by . Reportedly, the urine output was low and urology was consulted when despite IVF urine output did not increase. Patient was seen by and underwent cystoscopy and bilateral ureteral catheter insertion with 500 cc of urine obtained. During the hospital stay patient subsequently had abdominal distention and despite NG tube to suction continued to have worsening distention and discomfort. A KUB done earlier on the day of CT on 09/11/2017 was negative for free air but subsequent imaging showed free air so patient was emergently taken to the OR by . Patient was found to have a small bowel defect and large amounts of of bowel contents were visible in peritoneum per op note. Critical Care was consulted and patient is currently being treated for Septic Shock with multiple pressors, IVF boluses given yday. He had low urine output and Nephrology is on the case and CVVHD initiated. Patient had issues with clotting of access line so CVVHD has been interrupted off and on. Patient is currently intubated on a ventilator. Not much resp secretions. Ileostomy output ok. Platelets have been low but no obvious bleeding from any sites. Patient remains sedated on vent. Patient has been started on empiric antibiotics Zosyn IV, Vanco IV x 1 dose, Flagyl IV, Micafungin IV. Left IJ Vascath placed on 09/11/2017 ID consulted for evaluation and Mment of Septic Shock, Secondary peritonitis. Overnight events reviewed, kelly RN HD later today kelly RN and pharmacy about scheduling abx therapy following HD No fevers No rash No diarrhea Not on pressors but on amiodarone platelets low but trending up HIT neg Antibiotics Cefepime IV Flagyl IV Micafungin IV Lines Line sites with no e.o infection Past Medical History reviewed (Alvina Henderson) Allergies: Coded Allergies: No Known Allergies (Unverified Allergy, Unknown, 09/07/17) Objective . Vital Signs Date Time Temp Pulse Resp B/P (MAP) Pulse Ox O2 Delivery O2 Flow Rate FiO2 09/16/17 12:27 93 45 09/16/17 12:00 98.9 71 14 145/63 (90) 93 09/16/17 12:00 71 09/16/17 12:00 45 09/16/17 10:00 73 09/16/17 08:50 45 09/16/17 08:50 92 45 09/16/17 08:00 74 09/16/17 08:00 45 09/16/17 08:00 98.5 74 18 136/48 (77) 94 09/16/17 06:00 78 09/16/17 04:00 98.4 68 16 125/48 (73) 95 09/16/17 04:00 45 09/16/17 04:00 68 09/16/17 03:13 94 45 09/16/17 02:00 69 09/16/17 00:17 73 160/55 09/16/17 00:00 98.3 77 16 163/57 (92) 96 09/16/17 00:00 45 09/16/17 00:00 69 09/15/17 23:44 100 45 09/15/17 22:00 71 09/15/17 20:00 96 50 09/15/17 20:00 50 09/15/17 20:00 98.1 73 16 164/63 (96) 100 09/15/17 20:00 77 09/15/17 18:00 71 09/15/17 16:43 94 50 09/15/17 16:00 97.9 64 16 122/52 (75) 93 09/15/17 16:00 64 09/15/17 16:00 50 09/15/17 14:00 67 . Laboratory Tests Test 09/15/17 05:15 09/16/17 05:20 White Blood Count 12.4 TH/MM3 11.9 TH/MM3 Red Blood Count 2.78 MIL/MM3 2.94 MIL/MM3 Hemoglobin 8.5 GM/DL 8.9 GM/DL Hematocrit 24.2 % 25.5 % Mean Corpuscular Volume 87.3 FL 86.6 FL Mean Corpuscular Hemoglobin 30.6 PG 30.3 PG Mean Corpuscular Hemoglobin Concent 35.0 % 34.9 % Red Cell Distribution Width 14.4 % 14.6 % Platelet Count 44 TH/MM3 56 TH/MM3 Mean Platelet Volume 8.7 FL 9.6 FL Neutrophils (%) (Auto) 91.7 % 89.8 % Lymphocytes (%) (Auto) 3.9 % 5.1 % Monocytes (%) (Auto) 4.4 % 4.8 % Eosinophils (%) (Auto) 0.0 % 0.1 % Basophils (%) (Auto) 0.0 % 0.2 % Neutrophils # (Auto) 11.3 TH/MM3 10.7 TH/MM3 Lymphocytes # (Auto) 0.5 TH/MM3 0.6 TH/MM3 Monocytes # (Auto) 0.5 TH/MM3 0.6 TH/MM3 Eosinophils # (Auto) 0.0 TH/MM3 0.0 TH/MM3 Basophils # (Auto) 0.0 TH/MM3 0.0 TH/MM3 CBC Comment AUTO DIFF AUTO DIFF Differential Total Cells Counted 100 100 Neutrophils % (Manual) 73 % 78 % Band Neutrophils % 17 % 10 % Lymphocytes % 5 % 5 % Monocytes % 4 % 1 % Neutrophils # (Manual) 11.3 TH/MM3 11.2 TH/MM3 Myelocytes 1 % 2 % Differential Comment FINAL DIFF MANUAL FINAL DIFF MANUAL Platelet Estimate LOW LOW Platelet Morphology Comment NORMAL NORMAL Red Cell Morphology Comment NORMAL NORMAL Reticulocyte Count 1.5 % Absolute Reticulocyte Count 41.7 MIL/L Metamyelocytes 4 % Laboratory Tests Test 09/14/17 16:15 09/15/17 01:35 09/15/17 05:10 09/15/17 05:15 Blood Urea Nitrogen 65 MG/DL 60 MG/DL 64 MG/DL Creatinine 4.23 MG/DL 4.03 MG/DL 4.34 MG/DL Random Glucose 115 MG/DL 118 MG/DL 116 MG/DL Albumin 1.8 GM/DL 1.9 GM/DL 1.9 GM/DL Calcium Level 7.5 MG/DL 7.4 MG/DL 7.4 MG/DL Phosphorus Level 4.5 MG/DL 4.8 MG/DL 5.3 MG/DL Magnesium Level 2.2 MG/DL 2.4 MG/DL 2.4 MG/DL Lactate Dehydrogenase 262 U/L Sodium Level 137 MEQ/L 137 MEQ/L 137 MEQ/L Potassium Level 3.9 MEQ/L 3.9 MEQ/L 4.0 MEQ/L Chloride Level 97 MEQ/L 98 MEQ/L 98 MEQ/L Carbon Dioxide Level 27.1 MEQ/L 27.8 MEQ/L 26.9 MEQ/L Anion Gap 13 MEQ/L 11 MEQ/L 12 MEQ/L Estimat Glomerular Filtration Rate 14 ML/MIN 15 ML/MIN 14 ML/MIN Total Protein 5.1 GM/DL 5.0 GM/DL Protein Corrected Calcium 8.5 MG/DL 8.6 MG/DL Alkaline Phosphatase 52 U/L Aspartate Amino Transf (AST/SGOT) 63 U/L Alanine Aminotransferase (ALT/SGPT) 25 U/L Total Bilirubin 3.4 MG/DL Amylase Level 45 U/L Lipase 80 U/L Lactic Acid Level 1.0 mmol/L Test 09/15/17 12:30 09/15/17 20:10 09/16/17 02:00 09/16/17 09:00 Blood Urea Nitrogen 78 MG/DL 59 MG/DL 66 MG/DL 78 MG/DL Creatinine 4.68 MG/DL 3.76 MG/DL 4.11 MG/DL 4.44 MG/DL Random Glucose 127 MG/DL 119 MG/DL 108 MG/DL 92 MG/DL Albumin 1.8 GM/DL 1.9 GM/DL 1.7 GM/DL 1.7 GM/DL Calcium Level 7.4 MG/DL 7.7 MG/DL 7.5 MG/DL 7.4 MG/DL Phosphorus Level 6.6 MG/DL 5.4 MG/DL 5.1 MG/DL 5.5 MG/DL Magnesium Level 2.6 MG/DL 2.4 MG/DL 2.5 MG/DL 2.5 MG/DL Total Bilirubin 3.2 MG/DL 3.1 MG/DL Direct Bilirubin 2.7 MG/DL 2.6 MG/DL Sodium Level 136 MEQ/L 139 MEQ/L 140 MEQ/L 137 MEQ/L Potassium Level 4.1 MEQ/L 4.2 MEQ/L 4.1 MEQ/L 3.9 MEQ/L Chloride Level 97 MEQ/L 99 MEQ/L 100 MEQ/L 99 MEQ/L Carbon Dioxide Level 27.3 MEQ/L 25.9 MEQ/L 26.5 MEQ/L 26.8 MEQ/L Anion Gap 12 MEQ/L 14 MEQ/L 14 MEQ/L 11 MEQ/L Estimat Glomerular Filtration Rate 13 ML/MIN 16 ML/MIN 15 ML/MIN 13 ML/MIN Indirect Bilirubin 0.5 MG/DL 0.5 MG/DL Amylase Level 50 U/L Lipase 105 U/L Thyroid Stimulating Hormone 3rd Gen 2.750 uIU/ML Imaging Last Impressions Chest X-Ray 09/13/17 0600 Signed Impressions: Service Date/Time: September 05:23 - CONCLUSION: Slight interval worsening in aeration. Michele Coleman MD Abdomen X-Ray 09/13/17 0000 Signed Impressions: Service Date/Time: September 10:52 - CONCLUSION: Gastric tube tip and side-port project over the stomach. Andrés Gardner MD Renal Ultrasound 09/10/17 0000 Signed Impressions: Service Date/Time: Sunday, September 10, 2017 15:17 - CONCLUSION: No evidence of mass or hydronephrosis. Andrés Gardner MD Physical Exam GENERAL: This is a well-nourished, well-developed patient, in no apparent distress. SKIN: No rashes, ecchymoses or lesions. Cool and dry. HEAD: Atraumatic. Normocephalic. No temporal or scalp tenderness. EYES: Pupils equal round and reactive. No scleral icterus. No injection or drainage. ENT: Intubated. NECK: Trachea midline. Supple, nontender, no meningeal signs. CARDIOVASCULAR: HS audible. RESPIRATORY: Clear to auscultation. Breath sounds equal bilaterally but decreased in the bases. GASTROINTESTINAL: Abdomen soft, Ostomy bag with green liquid stool. BRANDEN drain x 2, left drain with yellowish drainage MUSCULOSKELETAL: Extremities without clubbing, cyanosis. Pedal edema noted. No joint tenderness, effusion. 2-3+ pedal edema noted. No calf tenderness. NEUROLOGICAL: Sedated Psych could not be assessed IV line sites with no e.o infection. (Alvina Henderson) Assessment & Plan Remarks Severe Sepsis with Shock Secondary peritonitis due to small bowel perforation s/p Enterostomy and washout s/p robotic splenic flexure takedown on 09/07/17 s/p cystoscopy with bilateral ureteroscopies on 09/07/2017 Thrombocytopenia: sepsis, DIC Acute renal failure: prerenal, sepsis. On CVVHD. Recs: Continue Micafungin IV (will deescalate to Diflucan in am) Continue Cefepime IV Continue Flagyl IV for anaerobic coverage. Doubt the low platelet is from current regimen but changed it. Likely due to severe sepsis septic shock related BM shutdown. Follow cultures Follow clinically. Kelly RN and pharmacist (Alvina Henderson) Remarks The exam, history, and the medical decision-making described in the above note were completed with the assistance of the mid-level provider. I reviewed and agree with the findings presented. I attest that I had a [id number] encounter with the patient on the same day, and personally performed and documented my assessment and findings in the medical record. Dw using computer on [employer] plates the progress of patient based on labs, radiology. Examined patient will kelly Rodriguez about suture line and drains in am. kelly Clinical pharmacist about dosing Cefepime post HD (Lu Orozco MD) Alvina Henderson Sep 16, 2017 13:58 Lu Orozco MD Sep 16, 2017 17:49
--- NOTE | 2017-09-16 15:21 | HHI.CCPN ---
Subjective Remarks/Hospital Course 67-year-old very pleasant gentleman initially admitted for same day surgery for polyp removal. Due to some complications in the OR he required a colonoscopy during the surgery and now he is postop day 4 status post robotic ascending colectomy. He also required bilateral ureteral catheter placement by urology. Postoperatively he was given Toradol, received 12 doses. He is now on IVF, urine output is very low and he has cola colored urine. He continues to be profoundly acidotic and the x-ray today shows pneumoperitoneum that is new compared to previous images. The patient's surgeon Dr. Mcclellan is at the bedside and she is taking him immediately to operating room for a revision. The patient during my exam is not in distress. 09/12: Remains very critical in septic shock. CVVH started yesterday. Remains on Levophed, dontrell-synephrine and and vasopressin plus stress dose steroids. s/p Small bowel enterotomy with leakage of small bowel contents, s/p diverting ileostomy. WBC up to 19.5, platelet count 64 today 09/13: Continues to be intubated remains critical but slight improvement in hemodynamics. Levophed is down to 12 mcg/m remains on vasopressin. Dontrell- Synephrine was restarted overnight currently at 60 mcg/m but will wean to DC. Platelet count further down now 45 most likely from sepsis and consumption. Check hit screen. CVVH filter clot transitioning to hemodialysis today. Appreciate ID consult. WBC count is up to 25.2 today Subjective 09/14: Afebrile. Currently only on vasopressin to maintain mean arterial pressure greater than equal to 65. Norepinephrine is been discontinued along with Dontrell-Synephrine. Platelets currently 31. LDH, haptoglobin and peripheral smear pending. No bleeding apparent. 09/15: May need to replace HD catheter, flow sluggish. Tapering vasopressors but platelets remain low. 09/16. Platelet count 56,[address] new hemodialysis catheter. Unfortunately there are no access it is available in the neck. Examination of the groins reveals that the areas are much too contaminated to allow for line placement. The only sites available are subclavian approach. I have discussed this with Dr. Breen and he agrees to proceed with subclavian placement. This should not be a situation requiring long-term hemodialysis. MAURICE panel negative. Objective Vital Signs Date Time Temp Pulse Resp B/P (MAP) Pulse Ox O2 Delivery O2 Flow Rate FiO2 09/16/17 12:27 93 45 09/16/17 12:00 98.9 71 14 145/63 (90) 09/13/17 04:00 Mechanical Ventilator Intake and Output 09/16/17 09/16/17 09/17/17 08:00 16:00 00:00 Intake Total 450 ml Output Total 240 ml Balance 210 ml Result Diagram: 09/16/17 0520 09/16/17 0900 Imaging Last Impressions Chest X-Ray 09/14/17 06 Signed Impressions: Service Date/Time: Thursday, September 14, 2017 03:40 - CONCLUSION: No significant interval change. Persistent left lower lobe atelectasis versus consolidation and mild hazy bilateral lung opacity. Valeriy Gagnon MD Abdomen X-Ray 09/13/17 0000 Signed Impressions: Service Date/Time: September 10:52 - CONCLUSION: Gastric tube tip and side-port project over the stomach. Andrés Gardner MD Renal Ultrasound 09/10/17 0000 Signed Impressions: Service Date/Time: Sunday, September 10, 2017 15:17 - CONCLUSION: No evidence of mass or hydronephrosis. Andrés Gardner MD Objective Remarks GENERAL: 67-year-old male currently orotracheally intubated SKIN: Warm and dry. HEAD: Normocephalic. EYES: MARIO. EOMI. ENT: Orotracheally intubated. NG and left nares. NECK: Supple, trachea midline. Right IJ cordis with dual-lumen catheter is clean dry and intact. Left IJ hemodialysis catheter has been removed today CARDIOVASCULAR: Regular rate and rhythm without murmurs, gallops, or rubs. No JVD. RESPIRATORY: Breath sounds equal bilaterally. Currently on assist control ventilation. Decreased breath sounds in the bases. Otherwise clear. GASTROINTESTINAL: Abdominal binder in place. ileostomy pink, Dressings c/d/i. BRANDEN x2 with serosanguineous output MUSCULOSKELETAL: With 1+ bilateral lower extremity edema NEURO EXAM: Arousable on the ventilator, will follow commands. Moves all 4 extremities spontaneously. Opens eyes and tracks to loud voice. Line: Central Venous Catheter Side: Left Location: Internal, Jugular A/P Assessment and Plan Neuro: Toxic metabolic encephalopathy Patient is currently on a propofol drip at 30 mcg/kg/min/fentanyl drip at 50 mcg /h for sedation/analgesia while intubated Goal of RA SS -2 Daily sedation vacation Mild encephalopathy should clear with hemodialysis. Resp Acute hypoxemic respiratory failure ACV 16/500/8/50 Ventilator bundle Albuterol/ipratropium aerosols every 6 hours with albuterol aerosols every 2. hours as needed dyspnea Spontaneous breathing trials when clinically indicated Tolerating CPAP trials well today. CVS: Severe septic shock Lactic acidosis A fib with RVR, now NSR mild pulmonary hypertension Coronary disease status post stent times 07/2015 History of hypertension History of dyslipidemia -Aggressively fluid resuscitated Currently on vasopressin 0.04 international units a minute to maintain mean arterial pressure greater than equal 65 -Hold all home antihypertensives (metoprolol succinate 25 mg daily and amlodipine 5 mg by mouth daily, and losartan 100 mg by mouth daily Holding aspirin 81 mg by mouth daily with low platelet -Continue Amiodarone drip at 0.5 mcg/min, Cannot anticoagulate due to recent surgery and thrombocytopenia 2D echocardiogram 09/13 - left ventricular systolic function is normal with an estimated ejection fraction in the range of 50-55%. Normal left ventricular size. Wall thickness is normal. No definite regional wall motion abnormalities. There is mild tricuspid regurgitation. The estimated pulmonary arterial pressure is 44 mmHg. On hydrocortisone sodium succinate 100 mg IV every 8 hours, start taper. Renal//FEN Acute kidney failure Hyponatremia -Most likely secondary to ATN/septic shock -Nephrology Dr. Zhu following, CVVH started 09/11/17, transition to IHD 09/13 -3 L with hemodialysis 09/13. -Anticipate subclavian Vas-Cath is a short-term location and we can place new Vas-Cath in the left neck after 2-3 days. Days. GI/ID Small bowel enterotomy with leakage of small bowel contents, status post ex lap s/p diverting ileostomy POD 5 Peritonitis with septic shock -Status post ascending colectomy 09/07 pod 8 -status post ex lap irrigation and diverting ileostomy for small bowel perforation pod3 -Continue metronidazole, piperacillin/tazobactam, ceftaroline and micafungin and vancomycin. Teflaro added by ID Dr. Orozco -Post op Management per Dr. Mcclellan general surgery -Cultures negative to date BRANDEN left --40 SS BRANDEN right --85 SS HEME: Leukocytosis Normocytic anemia Thrombocytopenia -Monitor CBC, coags -Thrombocytopenia secondary to sepsis, DIC Check LDH, haptoglobin and peripheral smear Hematology consultation for persistent thrombocytopenia likely secondary to sepsis/consumptive -Holding sq Heparin, check HIT screen results pending -> negative panel -Platelet count 56,000 today ENDO: Hyperglycemia History of gout Hypothyroidism Sliding scale insulin with NovoLog to maintain euglycemia/low regimen every 6 hours Holding allopurinol 100 mg by mouth daily for gout/home medication Resume levothyroxine 50 mcg by tube daily. IV levothyroxine limited to myxedema coma only at [place] due to nationwide shortage DVT GI prophylaxis -Luis M's and SCDs -Subcu heparin-hold due to thrombocytopenia -Famotidine Overall impression: Critically ill with persistent sepsis and respiratory failure. Acute kidney injury with an urea requiring hemodialysis. Prognosis guarded. Critical care time 45 minutes aside from procedures. Dawson Ball MD Sep 16, 2017 15:21
--- NOTE | 2017-09-16 15:28 | PD.PROCEDR ---
Procedure Note Procedure Diagnosis: Acute kidney injury Operation: Insertion left subclavian vein 2 lumen 14 [place] hemodialysis catheter Procedure: Timeout performed patient properly identified. Patient presently has indwelling venous devices in both sides of the neck. The groins are not suitable for placement of a dialysis catheter, much too contaminated and unable to keep clean. Situation discussed with Dr. Breen. We have decided to place a subclavian access dialysis catheter as a short-term solution, moving to the left neck site after several days. The left chest wall was painted prepped and draped. 1% Xylocaine infiltration used to anesthetize the skin and infraclavicular region. The left subclavian vein was cannulated underneath the clavicle and a wire delivered into the central circulation without difficulty. Dilators were passed over the wire and then a 20 cm 2 lumen hemodialysis catheter was passed over the wire to 19 cm. Both lumens were aspirated flushed and packed with heparin solution 1000 U/cc. MAURICE panel was negative prior to the use of heparin. Chest x-ray was obtained and I will review. Dawson Ball MD Sep 16, 2017 15:28
--- NOTE | 2017-09-16 15:40 | RADRPT ---
EXAM DATE/TIME: 09/16/2017 15:14 [facility] COMPARISON: No previous studies available for comparison. INDICATIONS : Left subclavian central line placement. MEDICAL HISTORY : Hypertension. Hypercholesterolemia. Myocardial infarction. Gout SURGICAL HISTORY : Coronary artery stent. ENCOUNTER: Subsequent ACUITY: 1 week PAIN SCORE: Non-responsive. LOCATION: Left chest FINDINGS: Endotracheal tube in good position. NG enters stomach. Left-sided Vas-Cath and right IJ central lines in superior vena cava. Basal airspace disease and probable effusions similar to September 14. No pneumoth orax. CONCLUSION: 1. Support apparatus in good position. Basilar airspace disease similar to September 14. Tam Ramírez MD on September 16, 2017 at 15:36 Board Certified Radiologist. This report was verified electronically.
[2017-09-16] MEDS: MICAFUNGIN INJ 150 MG in SODIUM CHLORIDE 0.9% INJ 100 ML IV SCH (18:24)
[2017-09-16 19:22] LABS: ALBUMIN 1.7 GM/DL (3.4-5.0); BICARBONATE 24.2 MEQ/L (21.0-32.0); CALCIUM 7.5 MG/DL (8.5-10.1); CREATININE 5.07 MG/DL (0.60-1.30); MAGNESIUM 2.5 MG/DL (1.5-2.5); PHOSPHORUS 6.3 MG/DL (2.5-4.9)
[2017-09-16] MEDS: SODIUM CHLORIDE 0.9% FLUSH 10 ML FLUSH IV FLUSH PRN (20:08)
[2017-09-16] MEDS: GENTAMICIN SULFATE 20 MG/2 ML VIAL OTHER PRN (20:09)
[2017-09-16] MEDS: HEPARIN SODIUM - IV 10,000 UNITS/10 ML VIAL PRN (20:09)
[2017-09-16] MEDS: SODIUM CHLOR 0.9% 1000 ML INJ 1,000 ML OTHER PRN (20:09)
[2017-09-16] MEDS: CEFEPIME INJ 2,000 MG in SODIUM CHLORIDE 0.9% INJ 100 ML IV SCH (20:12)
[2017-09-17] VITALS (18 sets, daily range): BP systolic 130–146; BP diastolic 51–60; PULSE 72–82; RESP 16–17; TEMP 97.8–99.3; O2SAT 92–96
[2017-09-17] MEDS: RESP: ALBUTEROL 2.5 MG/IPRATROPIUM 0.5 MG NEB (SCH) NEB ×4 (04:14→20:11)
[2017-09-17] MEDS: metroNIDAZOLE 500 MG INJ 100 ML IV SCH ×3 (04:40→20:03)
[2017-09-17] MEDS: HYDROCORTISONE SOD SUCCINATE 100 MG VIAL IV SCH ×3 (05:04→22:44)
[2017-09-17] MEDS: LEVOTHYROXINE SODIUM 50 MCG TAB PO SCH (05:04)
[2017-09-17] MEDS: ARTIFICIAL TEARS OPTH SOLN 15 ML BTL EACH EYE SCH ×3 (05:05→22:00)
[2017-09-17] MEDS: INSULIN ASPART SUPPLEMENTAL SCALE SQ SCH ×3 (05:07→17:29)
[2017-09-17 05:48] LABS: AUTOMATED NEUTROPHIL # 16.6 TH/MM3 (1.8-7.7); BASOPHIL % 0.1 % (0.0-2.0); HEMATOCRIT 26.6 % (39.0-51.0); HEMOGLOBIN 9.2 GM/DL (13.0-17.0); LYMPH % 4.2 % (9.0-44.0); LYMPHOCYTE # 0.8 TH/MM3 (1.0-4.8); MEAN CELL VOLUME 88.4 FL (80.0-100.0); MEAN CORPUSCULAR HEMOGLOBIN 30.5 PG (27.0-34.0); MEAN CORPUSCULAR HGB CONC 34.4 % (32.0-36.0); MEAN PLATELET VOLUME 10.1 FL (7.0-11.0); MONO % 5.7 % (0.0-8.0); MONOCYTE # 1.1 TH/MM3 (0-0.9); PLATELET COUNT 66 TH/MM3 (150-450); RED BLOOD COUNT 3.01 MIL/MM3 (4.50-5.90); RED CELL DISTRIBUTION WIDTH 14.6 % (11.6-17.2); WHITE BLOOD COUNT 18.4 TH/MM3 (4.0-11.0)
[2017-09-17 06:09] LABS: INTERNATIONAL NORMALIZED RATIO 1.2 RATIO; PROTHROMBIN TIME - PATIENT 12.2 SEC (9.8-11.6)
[2017-09-17 06:16] LABS: ALBUMIN 1.6 GM/DL (3.4-5.0); BICARBONATE 23.4 MEQ/L (21.0-32.0); CALCIUM 7.5 MG/DL (8.5-10.1); CREATININE 4.75 MG/DL (0.60-1.30); MAGNESIUM 2.6 MG/DL (1.5-2.5); PHOSPHORUS 6.9 MG/DL (2.5-4.9)
--- NOTE | 2017-09-17 08:13 | PD.CARD.PN ---
Subjective Subjective Remarks Intubated. Sedated. Objective Medications Item Value Date Time Amiodarone HCl 250 ml @ 33.33 mls/hr 09/11/17 1200 450 mg/Sodium .Q7H31M PRN/IV 09/16/17 1559 Chloride Vasopressin 40 100 ml @ 1.5 mls/hr 09/11/17 1130 units/Dextrose TITRATE PRN/IV 09/14/17 0840 Current Medications Medications (Trade) Dose Ordered Sig/Emilee Route Start Time Stop Time Status Last Admin (Protonix Inj) 40 mg DAILY IVP 09/08/17 09:00 09/16/17 08:49 (Zofran Inj) 4 mg Q6H PRN IV PUSH 09/07/17 16:00 09/08/17 01:06 (Vasotec Inj) 1.25 mg Q4H PRN IV PUSH 09/07/17 16:00 Future Hold (Vasotec Inj) 2.5 mg Q6H PRN IV PUSH 09/07/17 16:00 Future Hold Potassium Chloride 100 ml @ 50 mls/hr UNSCH PRN IV 09/07/17 16:00 Potassium Chloride 100 ml @ 25 mls/hr UNSCH PRN IV-CENTRAL 09/07/17 16:00 (Heparin Inj) 5,000 units Q12H SQ 09/08/17 15:00 Future Hold 09/12/17 02:46 (Narcan Inj) 0.4 mg UNSCH PRN IV PUSH 09/07/17 16:00 (Benadryl Inj) 25 mg Q6H PRN IV PUSH 09/07/17 16:00 (Norvasc) 5 mg DAILY PO 09/08/17 09:00 Future Hold 09/10/17 09:50 (Toprol Xl) 25 mg DAILY PO 09/08/17 09:00 Future Hold 09/10/17 09:50 (Dilaudid Pf Inj) 0.2 mg Q3H PRN IV 09/08/17 21:45 09/10/17 23:32 (Benadryl Inj) 25 mg HS PRN IV PUSH 09/10/17 20:15 Sodium Chloride 1,000 ml @ 0 mls/hr Q0M PRN OTHER 09/11/17 09:25 09/16/17 20:09 (Heparin Inj) 8,000 units UNSCH PRN IV FLUSH 09/11/17 09:30 Sodium Chloride 1,000 ml @ 200 mls/hr Q5H PRN IV 09/11/17 09:25 Sodium Chloride 1,000 ml @ 0 mls/hr Q0M PRN OTHER 09/11/17 09:25 (Mannitol Inj) 12.5 gm UNSCH PRN IV 09/11/17 09:30 Albumin Human 100 ml @ 60 mls/hr UNSCH PRN IV 09/11/17 09:30 (NS Flush) 5 ml UNSCH PRN IV FLUSH 09/11/17 09:30 09/16/17 20:08 (Heparin Inj) UNSCH PRN .XX 09/11/17 09:30 09/16/17 20:09 (Gentamicin Inj) 20 mg UNSCH PRN OTHER 09/11/17 09:30 09/16/17 20:09 (Zofran Inj) 4 mg UNSCH PRN IV PUSH 09/11/17 09:30 (Tylenol) 650 mg UNSCH PRN PO 09/11/17 09:30 (Benadryl) 25 mg UNSCH PRN PO 09/11/17 09:30 (Nitrostat Sl) 0.4 mg UNSCH PRN SL 09/11/17 09:30 (Catapres) 0.1 mg UNSCH PRN PO 09/11/17 09:30 (Gelfoam 12 Mm/7 Mm Top) 1 foam UNSCH PRN TOP 09/11/17 09:30 Vasopressin 40 units/Dextrose 100 ml @ 1.5 mls/hr TITRATE PRN IV 09/11/17 11:30 09/14/17 08:40 Amiodarone HCl 450 mg/Sodium Chloride 250 ml @ 33.33 mls/ hr Q7H31M PRN IV 09/11/17 12:00 09/16/17 15:59 Propofol 100 ml @ 2.895 mls/ hr TITRATE PRN IV 09/11/17 12:45 09/16/17 21:21 Sodium Chloride 1,000 ml @ 0 mls/hr UNSCH PRN OTHER 09/11/17 13:00 (KCl 40 Meq Premix Inj) *FOR DIALYSIS USE IN C... WITH DIALYSIS PRN .XX 09/11/17 13:00 Phenylephrine HCl 80 mg/Dextrose 500 ml @ 15 mls/hr TITRATE PRN IV 09/11/17 16:45 09/12/17 07:00 (Brethine Inj) 1 mg UNSCH PRN SQ 09/11/17 16:45 (SoluCORTEF INJ) 100 mg Q8HR IV 09/11/17 22:00 09/17/17 05:04 Micafungin Sodium 150 mg/Sodium Chloride 100 ml @ 100 mls/hr Q24H IV 09/11/17 18:00 09/16/17 18:24 Fentanyl Citrate 250 ml @ 5 mls/hr TITRATE PRN IV 09/12/17 11:00 09/16/17 08:49 (Tears Naturale Opth Soln) 1 drop Q8HR EACH EYE 09/14/17 14:00 09/17/17 05:05 (Duoneb Neb) 1 ampule Q6HR NEB NEB 09/14/17 10:00 09/17/17 07:42 (Albuterol Neb) 2.5 mg Q2HR NEB PRN NEB 09/14/17 09:00 Acetaminophen 100 ml @ 400 mls/hr Q8H PRN IV 09/14/17 09:15 (Synthroid) 50 mcg DAILY@0600 PO 09/15/17 06:00 09/17/17 05:04 (D50w (Vial) Inj) 50 ml UNSCH PRN IV PUSH 09/14/17 09:45 (Glucagon Inj) 1 mg UNSCH PRN OTHER 09/14/17 09:45 (NovoLOG SUPPLEMENTAL SCALE) 1 Q6HR SQ 09/14/17 12:00 (Vitamin D Liq) 2,000 units DAILY PO 09/14/17 14:30 09/16/17 09:00 (Trandate Inj) 20 mg Q2H PRN IV PUSH 09/15/17 14:00 (Apresoline Inj) 10 mg Q30M PRN IV PUSH 09/15/17 14:00 09/15/17 21:00 Cefepime HCl 2000 mg/Sodium Chloride 100 ml @ 200 mls/hr Q12H IV 09/16/17 20:00 09/16/17 20:12 Metronidazole 100 ml @ 100 mls/hr Q8H IV 09/16/17 20:00 09/17/17 04:40 Vital Signs / I&O Vital Signs Date Time Temp Pulse Resp B/P (MAP) Pulse Ox O2 Delivery O2 Flow Rate FiO2 09/17/17 07:36 96 45 09/17/17 06:00 75 09/17/17 04:15 96 45 09/17/17 04:00 75 09/17/17 04:00 97.8 74 16 142/60 (87) 96 09/17/17 04:00 45 09/17/17 02:00 76 09/17/17 00:06 95 45 09/17/17 00:00 98.0 75 16 132/56 (81) 95 09/17/17 00:00 45 09/17/17 00:00 75 09/16/17 22:00 75 09/16/17 20:00 81 09/16/17 20:00 45 09/16/17 20:00 97.9 79 16 100/50 (67) 94 09/16/17 19:20 93 45 09/16/17 18:00 81 09/16/17 16:40 95 45 09/16/17 16:00 98.5 75 19 153/60 (91) 95 09/16/17 16:00 86 09/16/17 16:00 45 09/16/17 15:59 72 151/48 09/16/17 14:00 71 09/16/17 12:27 93 45 09/16/17 12:00 98.9 71 14 145/63 (90) 93 09/16/17 12:00 71 09/16/17 12:00 45 09/16/17 10:00 73 09/16/17 08:50 45 09/16/17 08:50 92 45 I/O 09/16/17 09/16/17 09/16/17 09/17/17 09/17/17 09/17/17 07:00 15:00 23:00 07:00 15:00 23:00 Intake Total 550 ml 338 ml 224 ml Output Total 240 ml 2820 ml 405 ml Balance 310 ml -2482 ml -181 ml IV Total 550 ml 300 ml Tube Feeding 38 ml 224 ml Output Urine Total 30 ml 75 ml 20 ml Stool Total 50 ml 100 ml 150 ml Gastric Drainage Total 100 ml 100 ml 180 ml Drainage Total 60 ml 45 ml 55 ml Hemodialysis 2500 ml Physical Exam GENERAL: Well developed, well nourished. Intubated. Sedated. CHEST: Lungs clear to auscultation anteriorly. CARDIAC: Regular rate and rhythm without S3, S4, or murmur. EXTREMITIES: No clubbing, cyanosis. 1+ edema. Laboratory Laboratory Tests Test 09/16/17 09:00 09/16/17 18:50 09/17/17 05:25 Blood Urea Nitrogen 78 MG/DL 88 MG/DL 84 MG/DL Creatinine 4.44 MG/DL 5.07 MG/DL 4.75 MG/DL Random Glucose 92 MG/DL 101 MG/DL 120 MG/DL Albumin 1.7 GM/DL 1.7 GM/DL 1.6 GM/DL Calcium Level 7.4 MG/DL 7.5 MG/DL 7.5 MG/DL Phosphorus Level 5.5 MG/DL 6.3 MG/DL 6.9 MG/DL Magnesium Level 2.5 MG/DL 2.5 MG/DL 2.6 MG/DL Sodium Level 137 MEQ/L 136 MEQ/L 138 MEQ/L Potassium Level 3.9 MEQ/L 4.5 MEQ/L 4.7 MEQ/L Chloride Level 99 MEQ/L 98 MEQ/L 99 MEQ/L Carbon Dioxide Level 26.8 MEQ/L 24.2 MEQ/L 23.4 MEQ/L Anion Gap 11 MEQ/L 14 MEQ/L 16 MEQ/L Estimat Glomerular Filtration Rate 13 ML/MIN 11 ML/MIN 12 ML/MIN White Blood Count 18.4 TH/MM3 Red Blood Count 3.01 MIL/MM3 Hemoglobin 9.2 GM/DL Hematocrit 26.6 % Mean Corpuscular Volume 88.4 FL Mean Corpuscular Hemoglobin 30.5 PG Mean Corpuscular Hemoglobin Concent 34.4 % Red Cell Distribution Width 14.6 % Platelet Count 66 TH/MM3 Mean Platelet Volume 10.1 FL Neutrophils (%) (Auto) 90.0 % Lymphocytes (%) (Auto) 4.2 % Monocytes (%) (Auto) 5.7 % Eosinophils (%) (Auto) 0.0 % Basophils (%) (Auto) 0.1 % Neutrophils # (Auto) 16.6 TH/MM3 Lymphocytes # (Auto) 0.8 TH/MM3 Monocytes # (Auto) 1.1 TH/MM3 Eosinophils # (Auto) 0.0 TH/MM3 Basophils # (Auto) 0.0 TH/MM3 CBC Comment AUTO DIFF Prothrombin Time 12.2 SEC Prothromb Time International Ratio 1.2 RATIO Activated Partial Thromboplast Time 28.4 SEC Fibrinogen 480 mg/dL Assessment and Plan Problem List: (1) Paroxysmal atrial fibrillation ICD Codes: I48.0 - Paroxysmal atrial fibrillation Status: Acute Plan: Remains in NSR on IV Amiodarone. Thromboembolic risk overall low. Continue same. REC daily baby aspirin when OK from surgical standpoint once able to take oral medications, change IV Amiodarone to 200 mg po daily will f/u as needed (2) CAD (coronary artery disease) ICD Codes: I25.10 - CAD (coronary artery disease) Status: Chronic Plan: Stable CAD status. No recent angina. Normal EF and wall motion on echo this admission. Code Status full code Discussed Condition With nurse Problem Qualifiers (1) CAD (coronary artery disease): Qualified Codes: I25.10 - Atherosclerotic heart disease of [place] coronary artery without angina pectoris Anthony Lindsay MD Sep 17, 2017 08:13
[2017-09-17] MEDS: CHOLECALCIFEROL (VIT D3) LIQ 400 UNITS/ML 50 ML BOTTLE PO SCH (09:00)
[2017-09-17 09:10] LABS: TOXIC GRANULATION 1+ (NORMAL)
[2017-09-17] MEDS: PROPOFOL 1000 MG/100 ML INJ 100 ML IV PRN ×3 (09:16→20:03)
[2017-09-17] MEDS: PANTOPRAZOLE SODIUM 40 MG VIAL IVP SCH (09:17)
[2017-09-17] MEDS: CEFEPIME INJ 2,000 MG in SODIUM CHLORIDE 0.9% INJ 100 ML IV SCH (09:17)
[2017-09-17] MEDS: AMIODARONE INJ 450 MG in SODIUM CHLOR 0.9% (EXCEL) INJ 241 ML IV PRN (10:29)
--- NOTE | 2017-09-17 11:55 | HHI.CCPN ---
Subjective Remarks/Hospital Course 67-year-old very pleasant gentleman initially admitted for same day surgery for polyp removal. Due to some complications in the OR he required a colonoscopy during the surgery and now he is postop day 4 status post robotic ascending colectomy. He also required bilateral ureteral catheter placement by urology. Postoperatively he was given Toradol, received 12 doses. He is now on IVF, urine output is very low and he has cola colored urine. He continues to be profoundly acidotic and the x-ray today shows pneumoperitoneum that is new compared to previous images. The patient's surgeon Dr. Mcclellan is at the bedside and she is taking him immediately to operating room for a revision. The patient during my exam is not in distress. 09/12: Remains very critical in septic shock. CVVH started yesterday. Remains on Levophed, dontrell-synephrine and and vasopressin plus stress dose steroids. s/p Small bowel enterotomy with leakage of small bowel contents, s/p diverting ileostomy. WBC up to 19.5, platelet count 64 today 09/13: Continues to be intubated remains critical but slight improvement in hemodynamics. Levophed is down to 12 mcg/m remains on vasopressin. Dontrell- Synephrine was restarted overnight currently at 60 mcg/m but will wean to DC. Platelet count further down now 45 most likely from sepsis and consumption. Check hit screen. CVVH filter clot transitioning to hemodialysis today. Appreciate ID consult. WBC count is up to 25.2 today Subjective 09/14: Afebrile. Currently only on vasopressin to maintain mean arterial pressure greater than equal to 65. Norepinephrine is been discontinued along with Dontrell-Synephrine. Platelets currently 31. LDH, haptoglobin and peripheral smear pending. No bleeding apparent. 09/15: May need to replace HD catheter, flow sluggish. Tapering vasopressors but platelets remain low. 09/16. Platelet count 56,[address] new hemodialysis catheter. Unfortunately there are no access it is available in the neck. Examination of the groins reveals that the areas are much too contaminated to allow for line placement. The only sites available are subclavian approach. I have discussed this with Dr. Breen and he agrees to proceed with subclavian placement. This should not be a situation requiring long-term hemodialysis. MAURICE panel negative. 09/17: Remains intubated sedated, new hemodialysis catheter placed today. Plan for hemodialysis today. WBC count 11.9 to 18.4 today, but patient remains on stress dose steroids. Start weaning hydrocortisone. Urine output remains minimal. Platelet count improving 66 today Objective Vital Signs Date Time Temp Pulse Resp B/P (MAP) Pulse Ox O2 Delivery O2 Flow Rate FiO2 09/17/17 11:12 95 45 09/17/17 10:29 76 139/50 09/17/17 04:00 97.8 16 Intake and Output 09/17/17 09/17/17 09/18/17 08:00 16:00 00:00 Intake Total 305 ml 100 ml Output Total 405 ml Balance -100 ml 100 ml Result Diagram: 09/17/17 0525 09/17/17 0525 Imaging Last Impressions Chest X-Ray 09/14/17 0600 Signed Impressions: Service Date/Time: Thursday, September 14, 2017 03:40 - CONCLUSION: No significant interval change. Persistent left lower lobe atelectasis versus consolidation and mild hazy bilateral lung opacity. Valeriy Gagnon MD Abdomen X-Ray 09/13/17 0000 Signed Impressions: Service Date/Time: September 10:52 - CONCLUSION: Gastric tube tip and side-port project over the stomach. Andrés Gardner MD Renal Ultrasound 09/10/17 0000 Signed Impressions: Service Date/Time: Sunday, September 10, 2017 15:17 - CONCLUSION: No evidence of mass or hydronephrosis. Andrés Gardner MD Objective Remarks GENERAL: 67-year-old male currently orotracheally intubated, heavily sedated SKIN: Warm and dry. HEAD: Normocephalic. EYES: MARIO. EOMI. ENT: Orotracheally intubated. NG in left nares. NECK: Supple, trachea midline. Right IJ cordis with dual-lumen catheter is clean dry and intact. Left subclavian hemodialysis catheter in place CARDIOVASCULAR: Regular rate and rhythm without murmurs, gallops, or rubs. No JVD. RESPIRATORY: Breath sounds equal bilaterally. Currently on assist control ventilation. Decreased breath sounds in the bases. GASTROINTESTINAL: Abdominal binder in place, some what tense. ileostomy pink, Dressings c/d/i. BRANDEN x2 with serosanguineous output MUSCULOSKELETAL: With 1+ bilateral lower extremity edema NEURO EXAM: Arousable on the ventilator, will follow commands on sedation hold. Moves all 4 extremities spontaneously. Opens eyes and tracks. Line: Central Venous Catheter Side: Left Location: Internal, Jugular A/P Assessment and Plan Neuro: Toxic metabolic encephalopathy Patient is currently on a propofol drip/fentanyl drip for sedation/analgesia while intubated Goal of RA SS -2 Daily sedation vacation Mild encephalopathy should clear with hemodialysis. Resp Acute hypoxemic respiratory failure ACV 16/500/8/50 Ventilator bundle Albuterol/ipratropium aerosols every 6 hours with albuterol aerosols every 2. hours as needed dyspnea Daily CPAP trials Follow-up chest x-ray in a.m. CVS: Severe septic shock-resolved Lactic acidosis A fib with RVR, now NSR mild pulmonary hypertension Coronary disease status post stent times 07/2015 History of hypertension History of dyslipidemia -s/p Aggressively fluid resuscitated -Currently off all pressors -Holding all home antihypertensives (metoprolol succinate 25 mg daily and amlodipine 5 mg by mouth daily, and losartan 100 mg by mouth daily -Holding aspirin 81 mg by mouth daily with low platelet -Continue Amiodarone drip at 0.5 mcg/min, Cannot anticoagulate due to recent surgery and thrombocytopenia -2D echocardiogram 09/13 - left ventricular systolic function normal with an estimated ejection fraction in the range of 50-55%. No definite regional wall motion abnormalities. There is mild tricuspid regurgitation. PASP 44 mmHg. On hydrocortisone sodium succinate 100 mg IV every 8 hours, start taper 50 q8 for 4 days and stop. Renal//FEN Acute kidney failure Hyponatremia -Most likely secondary to ATN/septic shock -Nephrology Dr. Zhu following, CVVH started 09/11/17, transition to IHD 09/13 -3 L with hemodialysis 09/13. -Left subclavian Vas-Cath paced 09/16/17 GI/ID Small bowel enterotomy with leakage of small bowel contents, status post ex lap s/p diverting ileostomy POD 6 Peritonitis with septic shock -Status post ascending colectomy 09/07 pod 9 -status post ex lap irrigation and diverting ileostomy for small bowel perforation pod6 -Continue metronidazole, piperacillin/tazobactam, ceftaroline and micafungin and vancomycin. -Post op Management per Dr. Mcclellan general surgery -Cultures negative to date HEME: Leukocytosis Normocytic anemia Thrombocytopenia -Monitor CBC, coags -Thrombocytopenia secondary to sepsis, DIC -f/u LDH, haptoglobin and peripheral smear -Hematology consultation for persistent thrombocytopenia likely secondary to sepsis/consumptive -Holding sq Heparin, HIT screen negative panel -Platelet count 65,000 today ENDO: Hyperglycemia History of gout Hypothyroidism Sliding scale insulin with NovoLog to maintain euglycemia/low regimen every 6 hours Holding allopurinol 100 mg by mouth daily for gout/home medication Levothyroxine 50 mcg by tube daily. IV levothyroxine limited to myxedema coma only at [place] due to nationwide shortage DVT GI prophylaxis -Luis M's and SCDs -Subcu heparin-hold due to thrombocytopenia -Famotidine Overall impression: Critically ill with persistent sepsis and respiratory failure. Acute kidney injury with requiring hemodialysis. Prognosis guarded, but some improvement in hemodynamics Critical care time 35 minutes aside from procedures. Eileen Bautista MD Sep 17, 2017 11:55
--- NOTE | 2017-09-17 12:58 | HHI.IDPN ---
Subjective Subjective Remarks Patient is seen and examined with Dr. Orozco is a 67 y/o CM with PMHx significant for CAD, s/p PCI and stents. He was repeatedly diagnosed with sessile polyp and underwent exploratory laparoscopy with robotic takedown of splenic flexure, colonoscopy with tattooing and robotic ascending colectomy on 09/07/17 by . Reportedly, the urine output was low and urology was consulted when despite IVF urine output did not increase. Patient was seen by and underwent cystoscopy and bilateral ureteral catheter insertion with 500 cc of urine obtained. During the hospital stay patient subsequently had abdominal distention and despite NG tube to suction continued to have worsening distention and discomfort. A KUB done earlier on the day of CT on 09/11/2017 was negative for free air but subsequent imaging showed free air so patient was emergently taken to the OR by . Patient was found to have a small bowel defect and large amounts of of bowel contents were visible in peritoneum per op note. Critical Care was consulted and patient is currently being treated for Septic Shock with multiple pressors, IVF boluses given yday. He had low urine output and Nephrology is on the case and CVVHD initiated. Patient had issues with clotting of access line so CVVHD has been interrupted off and on. Patient is currently intubated on a ventilator. Not much resp secretions. Ileostomy output ok. Platelets have been low but no obvious bleeding from any sites. Patient remains sedated on vent. Patient has been started on empiric antibiotics Zosyn IV, Vanco IV x 1 dose, Flagyl IV, Micafungin IV. Left IJ Vascath placed on 09/11/2017 ID consulted for evaluation and Mment of Septic Shock, Secondary peritonitis. Overnight events reviewed, kelly RN HD planned for today No fevers No rash No diarrhea Not on pressors but on amiodarone platelets low but trending up HIT neg Antibiotics Cefepime IV Flagyl IV Micafungin IV Lines Line sites with no e.o infection Past Medical History reviewed Allergies: Coded Allergies: No Known Allergies (Unverified Allergy, Unknown, 09/07/17) Objective . Vital Signs Date Time Temp Pulse Resp B/P (MAP) Pulse Ox O2 Delivery O2 Flow Rate FiO2 09/17/17 11:12 95 45 09/17/17 10:29 76 139/50 09/17/17 08:00 97.8 74 16 132/51 (78) 95 09/17/17 07:36 96 45 09/17/17 06:00 75 09/17/17 04:15 96 45 09/17/17 04:00 75 09/17/17 04:00 97.8 74 16 142/60 (87) 96 09/17/17 04:00 45 09/17/17 02:00 76 09/17/17 00:06 95 45 09/17/17 00:00 98.0 75 16 132/56 (81) 95 09/17/17 00:00 45 09/17/17 00:00 75 09/16/17 22:00 75 09/16/17 20:00 81 09/16/17 20:00 45 09/16/17 20:00 97.9 79 16 100/50 (67) 94 09/16/17 19:20 93 45 09/16/17 18:00 81 09/16/17 16:40 95 45 09/16/17 16:00 98.5 75 19 153/60 (91) 95 09/16/17 16:00 86 09/16/17 16:00 45 09/16/17 15:59 72 151/48 09/16/17 14:00 71 09/17/17 09/17/17 09/18/17 15:00 23:00 07:00 Intake Total 196 ml Balance 196 ml IV Total 196 ml . Laboratory Tests Test 09/16/17 05:20 09/17/17 05:25 White Blood Count 11.9 TH/MM3 18.4 TH/MM3 Red Blood Count 2.94 MIL/MM3 3.01 MIL/MM3 Hemoglobin 8.9 GM/DL 9.2 GM/DL Hematocrit 25.5 % 26.6 % Mean Corpuscular Volume 86.6 FL 88.4 FL Mean Corpuscular Hemoglobin 30.3 PG 30.5 PG Mean Corpuscular Hemoglobin Concent 34.9 % 34.4 % Red Cell Distribution Width 14.6 % 14.6 % Platelet Count 56 TH/MM3 66 TH/MM3 Mean Platelet Volume 9.6 FL 10.1 FL Neutrophils (%) (Auto) 89.8 % 90.0 % Lymphocytes (%) (Auto) 5.1 % 4.2 % Monocytes (%) (Auto) 4.8 % 5.7 % Eosinophils (%) (Auto) 0.1 % 0.0 % Basophils (%) (Auto) 0.2 % 0.1 % Neutrophils # (Auto) 10.7 TH/MM3 16.6 TH/MM3 Lymphocytes # (Auto) 0.6 TH/MM3 0.8 TH/MM3 Monocytes # (Auto) 0.6 TH/MM3 1.1 TH/MM3 Eosinophils # (Auto) 0.0 TH/MM3 0.0 TH/MM3 Basophils # (Auto) 0.0 TH/MM3 0.0 TH/MM3 CBC Comment AUTO DIFF AUTO DIFF Differential Total Cells Counted 100 Neutrophils % (Manual) 78 % Band Neutrophils % 10 % Lymphocytes % 5 % Monocytes % 1 % Neutrophils # (Manual) 11.2 TH/MM3 Metamyelocytes 4 % Myelocytes 2 % Differential Comment FINAL DIFF MANUAL AUTO DIFF CONFIRMED Platelet Estimate LOW LOW Platelet Morphology Comment NORMAL NORMAL Red Cell Morphology Comment NORMAL Toxic Granulation 1+ Laboratory Tests Test 09/15/17 20:10 09/16/17 02:00 09/16/17 09:00 09/16/17 18:50 Blood Urea Nitrogen 59 MG/DL 66 MG/DL 78 MG/DL 88 MG/DL Creatinine 3.76 MG/DL 4.11 MG/DL 4.44 MG/DL 5.07 MG/DL Random Glucose 119 MG/DL 108 MG/DL 92 MG/DL 101 MG/DL Albumin 1.9 GM/DL 1.7 GM/DL 1.7 GM/DL 1.7 GM/DL Calcium Level 7.7 MG/DL 7.5 MG/DL 7.4 MG/DL 7.5 MG/DL Phosphorus Level 5.4 MG/DL 5.1 MG/DL 5.5 MG/DL 6.3 MG/DL Magnesium Level 2.4 MG/DL 2.5 MG/DL 2.5 MG/DL 2.5 MG/DL Total Bilirubin 3.1 MG/DL Direct Bilirubin 2.6 MG/DL Sodium Level 139 MEQ/L 140 MEQ/L 137 MEQ/L 136 MEQ/L Potassium Level 4.2 MEQ/L 4.1 MEQ/L 3.9 MEQ/L 4.5 MEQ/L Chloride Level 99 MEQ/L 100 MEQ/L 99 MEQ/L 98 MEQ/L Carbon Dioxide Level 25.9 MEQ/L 26.5 MEQ/L 26.8 MEQ/L 24.2 MEQ/L Anion Gap 14 MEQ/L 14 MEQ/L 11 MEQ/L 14 MEQ/L Estimat Glomerular Filtration Rate 16 ML/MIN 15 ML/MIN 13 ML/MIN 11 ML/MIN Indirect Bilirubin 0.5 MG/DL Test 09/17/17 05:25 Blood Urea Nitrogen 84 MG/DL Creatinine 4.75 MG/DL Random Glucose 120 MG/DL Albumin 1.6 GM/DL Calcium Level 7.5 MG/DL Phosphorus Level 6.9 MG/DL Magnesium Level 2.6 MG/DL Sodium Level 138 MEQ/L Potassium Level 4.7 MEQ/L Chloride Level 99 MEQ/L Carbon Dioxide Level 23.4 MEQ/L Anion Gap 16 MEQ/L Estimat Glomerular Filtration Rate 12 ML/MIN Imaging Last Impressions Chest X-Ray 09/13/17 0600 Signed Impressions: Service Date/Time: September 05:23 - CONCLUSION: Slight interval worsening in aeration. Michele Coleman MD Abdomen X-Ray 09/13/17 0000 Signed Impressions: Service Date/Time: September 10:52 - CONCLUSION: Gastric tube tip and side-port project over the stomach. Andrés Gardner MD Renal Ultrasound 09/10/17 0000 Signed Impressions: Service Date/Time: Sunday, September 10, 2017 15:17 - CONCLUSION: No evidence of mass or hydronephrosis. Andrés Gardner MD Physical Exam GENERAL: This is a well-nourished, well-developed patient, in no apparent distress. SKIN: No rashes, ecchymoses or lesions. Cool and dry. HEAD: Atraumatic. Normocephalic. No temporal or scalp tenderness. EYES: Pupils equal round and reactive. No scleral icterus. No injection or drainage. ENT: Intubated. NECK: Trachea midline. Supple, nontender, no meningeal signs. CARDIOVASCULAR: HS audible. RESPIRATORY: Clear to auscultation. Breath sounds equal bilaterally but decreased in the bases. GASTROINTESTINAL: Abdomen soft, Ostomy bag with green liquid stool. BRANDEN drain x 2, left drain with yellowish drainage MUSCULOSKELETAL: Extremities without clubbing, cyanosis. Pedal edema noted. No joint tenderness, effusion. 2-3+ pedal edema noted. No calf tenderness. NEUROLOGICAL: Sedated Psych could not be assessed IV line sites with no e.o infection. Assessment & Plan Remarks Severe Sepsis with Shock Secondary peritonitis due to small bowel perforation s/p Enterostomy and washout s/p robotic splenic flexure takedown on 09/07/17 s/p cystoscopy with bilateral ureteroscopies on 09/07/2017 Thrombocytopenia: sepsis, DIC Acute renal failure: prerenal, sepsis. On CVVHD. Recs: Continue Cefepime IV Continue Micafungin IV (will deescalate to Diflucan in am) Continue Flagyl IV for anaerobic coverage. Follow cultures Follow clinically. Lu Escobar RN, MD Sep 17, 2017 12:58
--- NOTE | 2017-09-17 13:58 | PD.ONC.PN ---
Subjective Subjective Remarks Afebrile overnight. patient intubated, sedated. at bedside. Objective Data Date Time Temp Pulse Resp B/P (MAP) Pulse Ox O2 Delivery O2 Flow Rate FiO2 09/17/17 11:12 95 45 09/17/17 10:29 76 139/50 09/17/17 08:00 97.8 74 16 132/51 (78) 95 09/17/17 07:36 96 45 09/17/17 06:00 75 09/17/17 04:15 96 45 09/17/17 04:00 75 09/17/17 04:00 97.8 74 16 142/60 (87) 96 09/17/17 04:00 45 09/17/17 02:00 76 09/17/17 00:06 95 45 09/17/17 00:00 98.0 75 16 132/56 (81) 95 09/17/17 00:00 45 09/17/17 00:00 75 09/16/17 22:00 75 09/16/17 20:00 81 09/16/17 20:00 45 09/16/17 20:00 97.9 79 16 100/50 (67) 94 09/16/17 19:20 93 45 09/16/17 18:00 81 09/16/17 16:40 95 45 09/16/17 16:00 98.5 75 19 153/60 (91) 95 09/16/17 16:00 86 09/16/17 16:00 45 09/16/17 15:59 72 151/48 09/16/17 14:00 71 09/17/17 09/17/17 09/17/17 07:00 15:00 23:00 Intake Total 224 ml 196 ml Output Total 405 ml Balance -181 ml 196 ml Result Diagram: 09/17/17 0525 09/17/17 0525 Laboratory Results Laboratory Tests Test 09/16/17 18:50 09/17/17 05:25 Blood Urea Nitrogen 88 MG/DL 84 MG/DL Creatinine 5.07 MG/DL 4.75 MG/DL Random Glucose 101 MG/DL 120 MG/DL Albumin 1.7 GM/DL 1.6 GM/DL Calcium Level 7.5 MG/DL 7.5 MG/DL Phosphorus Level 6.3 MG/DL 6.9 MG/DL Magnesium Level 2.5 MG/DL 2.6 MG/DL Sodium Level 136 MEQ/L 138 MEQ/L Potassium Level 4.5 MEQ/L 4.7 MEQ/L Chloride Level 98 MEQ/L 99 MEQ/L Carbon Dioxide Level 24.2 MEQ/L 23.4 MEQ/L Anion Gap 14 MEQ/L 16 MEQ/L Estimat Glomerular Filtration Rate 11 ML/MIN 12 ML/MIN White Blood Count 18.4 TH/MM3 Red Blood Count 3.01 MIL/MM3 Hemoglobin 9.2 GM/DL Hematocrit 26.6 % Mean Corpuscular Volume 88.4 FL Mean Corpuscular Hemoglobin 30.5 PG Mean Corpuscular Hemoglobin Concent 34.4 % Red Cell Distribution Width 14.6 % Platelet Count 66 TH/MM3 Mean Platelet Volume 10.1 FL Neutrophils (%) (Auto) 90.0 % Lymphocytes (%) (Auto) 4.2 % Monocytes (%) (Auto) 5.7 % Eosinophils (%) (Auto) 0.0 % Basophils (%) (Auto) 0.1 % Neutrophils # (Auto) 16.6 TH/MM3 Lymphocytes # (Auto) 0.8 TH/MM3 Monocytes # (Auto) 1.1 TH/MM3 Eosinophils # (Auto) 0.0 TH/MM3 Basophils # (Auto) 0.0 TH/MM3 CBC Comment AUTO DIFF Differential Comment AUTO DIFF CONFIRMED Toxic Granulation 1+ Platelet Estimate LOW Platelet Morphology Comment NORMAL Prothrombin Time 12.2 SEC Prothromb Time International Ratio 1.2 RATIO Activated Partial Thromboplast Time 28.4 SEC Fibrinogen 480 mg/dL Administered Medications Medications (Trade) Dose Ordered Sig/Emilee Route PRN Reason Start Time Stop Time Status Last Admin Dose Admin Pantoprazole Sodium (Protonix Inj) 40 mg DAILY IVP 09/08/17 09:00 09/17/17 09:17 Ondansetron HCl (Zofran Inj) 4 mg Q6H PRN IV PUSH NAUSEA 09/07/17 16:00 09/08/17 01:06 Heparin Sodium (Porcine) (Heparin Inj) 5,000 units Q12H SQ 09/08/17 15:00 Future Hold 09/12/17 02:46 Amlodipine Besylate (Norvasc) 5 mg DAILY PO 09/08/17 09:00 Future Hold 09/10/17 09:50 Metoprolol Succinate (Toprol Xl) 25 mg DAILY PO 09/08/17 09:00 Future Hold 09/10/17 09:50 Hydromorphone HCl (Dilaudid Pf Inj) 0.2 mg Q3H PRN IV PAIN 1-10 09/08/17 21:45 09/10/17 23:32 Sodium Chloride 1,000 ml @ 0 mls/hr Q0M PRN OTHER For Prime & Rinse Back 09/11/17 09:25 09/16/17 20:09 Sodium Chloride (NS Flush) 5 ml UNSCH PRN IV FLUSH WITH DIALYSIS 09/11/17 09:30 09/16/17 20:08 Heparin Sodium (Porcine) (Heparin Inj) UNSCH PRN .XX WITH DIALYSIS 09/11/17 09:30 09/16/17 20:09 Gentamicin Sulfate (Gentamicin Inj) 20 mg UNSCH PRN OTHER WITH DIALYSIS 09/11/17 09:30 09/16/17 20:09 Vasopressin 40 units/Dextrose 100 ml @ 1.5 mls/hr TITRATE PRN IV Blood Pressure Management 09/11/17 11:30 09/14/17 08:40 Amiodarone HCl 450 mg/Sodium Chloride 250 ml @ 33.33 mls/ hr Q7H31M PRN IV Per Protocol 09/11/17 12:00 09/17/17 10:29 Propofol 100 ml @ 2.895 mls/ hr TITRATE PRN IV SEDATION 09/11/17 12:45 09/17/17 09:16 Phenylephrine HCl 80 mg/Dextrose 500 ml @ 15 mls/hr TITRATE PRN IV Blood pressure Management 09/11/17 16:45 09/12/17 07:00 Micafungin Sodium 150 mg/Sodium Chloride 100 ml @ 100 mls/hr Q24H IV 09/11/17 18:00 09/16/17 18:24 Fentanyl Citrate 250 ml @ 5 mls/hr TITRATE PRN IV SEDATION 09/12/17 11:00 09/16/17 08:49 Artificial Tears (Tears Naturale Opth Soln) 1 drop Q8HR EACH EYE 09/14/17 14:00 09/17/17 05:05 Levothyroxine Sodium (Synthroid) 50 mcg DAILY@0600 PO 09/15/17 06:00 09/17/17 05:04 Cholecalciferol (Vitamin D Liq) 2,000 units DAILY PO 09/14/17 14:30 09/16/17 09:00 Hydralazine HCl (Apresoline Inj) 10 mg Q30M PRN IV PUSH SBP > 170 09/15/17 14:00 09/15/17 21:00 Cefepime HCl 2000 mg/Sodium Chloride 100 ml @ 200 mls/hr Q12H IV 09/16/17 20:00 09/17/17 09:17 Metronidazole 100 ml @ 100 mls/hr Q8H IV 09/16/17 20:00 09/17/17 12:42 Objective Remarks GENERAL: intubated, sedated male, supine in hospital bed. SKIN: Warm and dry. no bleeding from lines. HEAD: Normocephalic. EYES: No injection or drainage. NECK: Supple, trachea midline. CARDIOVASCULAR: +S1/S2 RESPIRATORY: Breath sounds equal bilaterally. No accessory muscle use. GASTROINTESTINAL: Abdomen mildly distended, incision site without bleeding. BRANDEN drain with ss drainage. EXTREMITIES: No cyanosis MUSCULOSKELETAL: Adequate muscle tone. NEUROLOGICAL: intubated, sedated. Assessment/Plan Problem List: (1) Thrombocytopenia ICD Codes: D69.6 - Thrombocytopenia, unspecified Plan: 09/17: platelets 66K. Hx/Workup: Patient is known to have thrombocytopenia that usually is maintained above 100,000. The patient had a exploratory laparotomy with robotic takedown of the splenic flexure due to a large colonic polyp. Unfortunately he developed perforation with sepsis and is now noted to have worsening cytopenias. --Thrombocytopenia likely due to sepsis --The possible drug effect due to the cephalosporin --Continue to monitor CBC Assessment 67-year-old male with history of thrombocytopenia admitted for a large colonic polyp who developed perforation with sepsis and worsening cytopenias Plan 1. monitor platelets. expect platelet count to improve when underlying infection improves. 2. continue supportive care Attending Statement The exam, history, and the medical decision-making described in the above note were completed with the assistance of the mid-level provider. I reviewed and agree with the findings presented. I attest that I had a [id number] encounter with the patient on the same day, and personally performed and documented my assessment and findings in the medical record. Pt less edema over arm, no bleeding from central line site. L neck line out. Drain serosangenous R >L. Platelets 60K, appears to return back to his baseline prior to surgery. Anticipate platelet will be low chronically, his baseline was low. Noted some liver congestion to contribute. Coagulopathy appear to be improving fibrinogen stable, ptt normal. No additional transfusion platelet needed. No overt bleeding. hgb stable. Parul Dubon Sep 17, 2017 13:58 Shannan Romo MD Sep 17, 2017 19:25
--- NOTE | 2017-09-17 15:04 | HHI.PR ---
Subjective Remarks POD#10 s/p robotic ascending colectomy/POD#6 exploratory lap with diverting ileostomy Intubated, sedated but responding Objective Vital Signs Date Time Temp Pulse Resp B/P (MAP) Pulse Ox O2 Delivery O2 Flow Rate FiO2 09/17/17 14:17 96 45 09/17/17 12:00 97.8 74 17 132/56 (81) 95 09/17/17 11:12 95 45 09/17/17 10:29 76 139/50 09/17/17 08:00 97.8 74 16 132/51 (78) 95 09/17/17 07:36 96 45 09/17/17 06:00 75 09/17/17 04:15 96 45 09/17/17 04:00 75 09/17/17 04:00 97.8 74 16 142/60 (87) 96 09/17/17 04:00 45 09/17/17 02:00 76 09/17/17 00:06 95 45 09/17/17 00:00 98.0 75 16 132/56 (81) 95 09/17/17 00:00 45 09/17/17 00:00 75 09/16/17 22:00 75 09/16/17 20:00 81 09/16/17 20:00 45 09/16/17 20:00 97.9 79 16 100/50 (67) 94 09/16/17 19:20 93 45 09/16/17 18:00 81 09/16/17 16:40 95 45 09/16/17 16:00 98.5 75 19 153/60 (91) 95 09/16/17 16:00 86 09/16/17 16:00 45 09/16/17 15:59 72 151/48 I/O 09/16/17 09/16/17 09/16/17 09/17/17 09/17/17 09/17/17 07:00 15:00 23:00 07:00 15:00 23:00 Intake Total 550 ml 338 ml 224 ml 196 ml Output Total 240 ml 2820 ml 405 ml Balance 310 ml -2482 ml -181 ml 196 ml IV Total 550 ml 300 ml 196 ml Tube Feeding 38 ml 224 ml Output Urine Total 30 ml 75 ml 20 ml Stool Total 50 ml 100 ml 150 ml Gastric Drainage Total 100 ml 100 ml 180 ml Drainage Total 60 ml 45 ml 55 ml Hemodialysis 2500 ml Result Diagram: 09/17/1752409/17/17524 Objective Remarks Abdomen soft, distended, ileostomy pink, watery output wound without erythema or fluctuance BRANDEN - left with viscous purulence - cultured right - watery, brown Assessment and Plan Assessment and Plan transverse colon polyp/sb enterotomy NEURO - sedated, but responsive CV - off pressors, NS rhythm, PULM - stable on vent, tolerated CPAP yesterday, possible trial after HD GI - did not tolerate TF's at 20, NG to gravity FEN - HD today ID - on Flagyl/Zosyn/ceftaroline/micafungin/vanco, - up again, as is BS, cultured BRANDEN output Heme - platelets stable, ? need for Lovenox? will d/w critical care team Condition guarded Ivory Mcclellan MD Sep 17, 2017 15:04
[2017-09-17] MEDS ORDERED: METOCLOPRAMIDE HCL 10 MG/2 ML VIAL IV PUSH SCH (15:15)
[2017-09-17] MEDS: GENTAMICIN SULFATE 20 MG/2 ML VIAL OTHER PRN (15:46)
[2017-09-17] MEDS: ALBUMIN 25% INJ 100 ML IV PRN ×2 (15:46→15:48)
--- NOTE | 2017-09-17 15:56 | HHI.NPPN ---
Subjective Renal Failure: Acute Interval History Remains intubated, unresponsive. at bedside. He is oligoanuric. (Helena Malave) Review of Systems General General Remarks unable to evaluate (Helena Malave) Objective Data Data 09/17/17 09/18/17 19:00 07:00 Intake Total 308 ml Output Total 30 ml Balance 278 ml IV Total 308 ml Drainage Total 30 ml Vital Signs Date Time Temp Pulse Resp B/P (MAP) Pulse Ox O2 Delivery O2 Flow Rate FiO2 09/17/17 14:17 96 45 09/17/17 14:00 72 09/17/17 12:00 97.8 74 17 132/56 (81) 95 09/17/17 12:00 45 09/17/17 12:00 74 09/17/17 11:12 95 45 09/17/17 10:29 76 139/50 09/17/17 10:00 75 09/17/17 08:00 74 09/17/17 08:00 97.8 74 16 132/51 (78) 95 09/17/17 08:00 45 09/17/17 07:36 96 45 09/17/17 06:00 75 09/17/17 04:15 96 45 09/17/17 04:00 75 09/17/17 04:00 97.8 74 16 142/60 (87) 96 09/17/17 04:00 45 09/17/17 02:00 76 09/17/17 00:06 95 45 09/17/17 00:00 98.0 75 16 132/56 (81) 95 09/17/17 00:00 45 09/17/17 00:00 75 09/16/17 22:00 75 09/16/17 20:00 81 09/16/17 20:00 45 09/16/17 20:00 97.9 79 16 100/50 (67) 94 09/16/17 19:20 93 45 09/16/17 18:00 81 09/16/17 16:40 95 45 09/16/17 16:00 98.5 75 19 153/60 (91) 95 09/16/17 16:00 86 09/16/17 16:00 45 09/16/17 15:59 72 151/48 (Helena Malave) -: 09/17/17 0525 09/17/17 0525 Microbiology 09/17/17 Gram Stain, Received Pending 09/17/17 Body Fluid Culture, Received Pending Imaging Last 72 hours Impressions Chest X-Ray 09/16/17 0000 Signed Impressions: Service Date/Time: Saturday, September 16, 2017 15:14 - CONCLUSION: 1. Support apparatus in good position. Basilar airspace disease similar to September 14. Tam Ramírez MD Liver Ultrasound 09/15/17 0000 Signed Impressions: Service Date/Time: Friday, September 15, 2017 07:34 - CONCLUSION: The liver appears mildly enlarged and decreased in echogenicity concerning for edema. The gallbladder is distended with sludge. No discrete stones are visualized. There is mild wall thickening of the gallbladder present. The spleen is overall normal in size and grossly normal in echotexture. Small amount of free fluid seen adjacent to the spleen. Vida Levine MD Tubes & Lines: Vas-Cath, Canela Tubes & Lines Comment TLC right IJ VC left IJ A line ileostomy RLQ BRANDEN drains x 2 abd Drip Comment fentanyl, amiodarone, propofol. (Helena Malave) Physical Exam General Appearance: Well Developed, Comfortable Appearance Remarks intubated, sedated, eyes closed (Helena Malave) Throat Throat Exam: Oral Mucosa [place] & Moist (Helena Malave) Neck Neck Exam: Neck Supple (Helena Malave) Pulmonary Resp Exam: Breath Sounds Equal, No Distress, Decreased Bases Resp Remarks vented lung sounds (Helena Malave) Gastrointestinal/Abdomen GI Exam: Distended, Bowel Sounds Hypoactive GI Remarks abd binder in place, BRANDEN drain in place x2 ileostomy, stoma is pink, has small output (Helena Malave) Genitourinary Remarks oliguric, urine is dark (Helena Malave) Musculoskeletal MS Exam: Joints Intact, Good Strength, Unable to Ambulate (Helena Malave) Integumentary Skin Exam: Warm, Dry, Intact Skin Remarks midabdominal incision (Helena Malave) Extremeties Extremities Exam: Pedal Pulses Palpable, Moderate Edema (Helena Malave) Neurologic Neuro Exam: Unresponsive, Sedated (Helena Malave) Psychiatric Psych Exam: Appropriate Responses (Helena Malave) VTE Prophylaxis Device: SCDs (Helena Malave) Assessment/Plan Discussed Condition With: Spouse Assessment Summary: JOSEF/Acute Renal Failure, Acute Tubular Necrosis, Hypotension Electrolyte Assessment: Hypocalcemia, Metabolic Acidosis Problem List: (1) JOSEF (acute kidney injury) ICD Codes: N17.9 - Acute kidney failure, unspecified Plan: His renal function is normal at baseline JOSEF due to ATN He has become anuric On CRRT from 09/11-09/12. Has been on daily IHD since 09/13. s/p vascath replacement, left subclavian, flow is better HD today, 3-4 L fluid removal Obtain daily labs Avoid IVF, hypotension His progonsis is guarded. (2) S/P partial colectomy ICD Codes: Z90.49 - Acquired absence of other specified parts of digestive tract Plan: He developed small bowel perforation after robotic surgery, s/p emergent ex lap with I&D / Management per surgery , has ileostomy that is draining He has hemodynamic instability (improving), continue supportive care Currently NPO Prognosis is guarded. (3) Sepsis ICD Codes: A41.9 - Sepsis, unspecified organism Plan: Antibiotics include cefepime, flagyl, and micafungin monitor drug levels when appropriate ID is following (4) Hypocalcemia ICD Codes: E83.51 - Hypocalcemia Plan: Improving with replacement start liquid vitamin D for deficiency (Helena Malave) Plan patient was seen and examined on 09/17/17. Discussed with patient's . ATN, unresolved. Oligoanuric. Dialysis support will be continued. Avoid nephrotoxic agents. Agree with above assessment and plan. (Nish Zhu MD) Helena Malave Sep 17, 2017 15:56 Nish Zhu MD Sep 18, 2017 10:32
[2017-09-17] MEDS: fentaNYL DRIP 250 ML IV PRN (17:31)
[2017-09-17] MEDS: MICAFUNGIN INJ 150 MG in SODIUM CHLORIDE 0.9% INJ 100 ML IV SCH (18:28)
[2017-09-17] MEDS: METOCLOPRAMIDE HCL 10 MG/2 ML VIAL IV PUSH SCH (22:45)
[2017-09-18] VITALS (18 sets, daily range): BP systolic 125–188; BP diastolic 49–76; PULSE 67–76; RESP 16; TEMP 97.7–99.1; O2SAT 92–100
[2017-09-18] MEDS: PROPOFOL 1000 MG/100 ML INJ 100 ML IV PRN ×4 (00:36→18:27)
[2017-09-18] MEDS: AMIODARONE INJ 450 MG in SODIUM CHLOR 0.9% (EXCEL) INJ 241 ML IV PRN ×2 (00:44→12:19)
[2017-09-18] MEDS: RESP: ALBUTEROL 2.5 MG/IPRATROPIUM 0.5 MG NEB (SCH) NEB ×4 (03:24→20:10)
[2017-09-18] MEDS: HYDROCORTISONE SOD SUCCINATE 100 MG VIAL IV SCH ×3 (05:06→21:13)
[2017-09-18] MEDS: metroNIDAZOLE 500 MG INJ 100 ML IV SCH ×3 (05:06→21:13)
[2017-09-18] MEDS: ARTIFICIAL TEARS OPTH SOLN 15 ML BTL EACH EYE SCH ×3 (05:07→21:14)
[2017-09-18] MEDS: METOCLOPRAMIDE HCL 10 MG/2 ML VIAL IV PUSH SCH ×3 (05:07→21:14)
[2017-09-18] MEDS: LEVOTHYROXINE SODIUM 50 MCG TAB PO SCH (05:08)
[2017-09-18] MEDS: INSULIN ASPART SUPPLEMENTAL SCALE SQ SCH ×4 (05:14→18:00)
[2017-09-18] MEDS: CHOLECALCIFEROL (VIT D3) LIQ 400 UNITS/ML 50 ML BOTTLE PO SCH (09:00)
--- NOTE | 2017-09-18 09:03 | HHI.PR ---
Subjective Remarks POD#11 s/p robotic ascending colectomy/POD#7 exploratory lap with diverting ileostomy Intubated, sedated but responding Objective Vital Signs Date Time Temp Pulse Resp B/P (MAP) Pulse Ox O2 Delivery O2 Flow Rate FiO2 09/18/17 07:52 95 45 09/18/17 06:00 67 09/18/17 04:00 99.1 70 16 130/51 (77) 96 09/18/17 04:00 69 09/18/17 04:00 45 09/18/17 03:24 96 45 09/18/17 02:00 76 09/18/17 00:44 77 152/60 09/18/17 00:02 95 45 09/18/17 00:00 45 09/18/17 00:00 71 09/18/17 00:00 98.9 71 16 125/51 (75) 95 09/17/17 22:00 80 09/17/17 20:11 94 45 09/17/17 20:00 45 09/17/17 20:00 99.3 80 17 146/54 (84) 95 09/17/17 20:00 80 09/17/17 18:00 82 09/17/17 16:00 98.2 80 17 130/56 (80) 92 09/17/17 16:00 80 09/17/17 16:00 45 09/17/17 14:17 96 45 09/17/17 14:00 72 09/17/17 12:00 97.8 74 17 132/56 (81) 95 09/17/17 12:00 45 09/17/17 12:00 74 09/17/17 11:12 95 45 09/17/17 10:29 76 139/50 09/17/17 10:00 75 I/O 09/17/17 09/17/17 09/17/17 09/18/17 09/18/17 09/18/17 07:00 15:00 23:00 07:00 15:00 23:00 Intake Total 224 ml 308 ml 417 ml Output Total 405 ml 30 ml 3875 ml 285 ml Balance -181 ml 278 ml -3458 ml -285 ml IV Total 308 ml 417 ml Tube Feeding 224 ml Output Urine Total 20 ml 60 ml 35 ml Stool Total 150 ml 100 ml 125 ml Gastric Drainage Total 180 ml 150 ml 25 ml Drainage Total 55 ml 30 ml 65 ml 100 ml Hemodialysis 3500 ml Result Diagram: 09/17/1752409/17/17524 Objective Remarks Abdomen soft, distended, ileostomy pink, watery output wound slight eschar (2-4 mm) to right of midpoint, healthy skin underneath opened midpoint, no purulence, packed BRANDEN - brownish aguilar, thick Assessment and Plan Assessment and Plan transverse colon polyp/sb enterotomy NEURO - sedated, but responsive CV - off pressors, NS rhythm, PULM - stable on vent, tolerated CPAP yesterday, possible trial after HD GI - will try feedings again today slowly FEN - HD today ID - on Flagyl/Zosyn/ceftaroline/micafungin/vanco, May need CT Scan today, d/w Dr. Bautista Heme - stable Condition guarded Ivory Mcclellan MD Sep 18, 2017 09:03
[2017-09-18 09:20] LABS: AUTOMATED NEUTROPHIL # 15.3 TH/MM3 (1.8-7.7); BASOPHIL % 0.2 % (0.0-2.0); HEMATOCRIT 25.1 % (39.0-51.0); HEMOGLOBIN 8.4 GM/DL (13.0-17.0); LYMPH % 3.5 % (9.0-44.0); LYMPHOCYTE # 0.6 TH/MM3 (1.0-4.8); MEAN CELL VOLUME 87.5 FL (80.0-100.0); MEAN CORPUSCULAR HEMOGLOBIN 29.5 PG (27.0-34.0); MEAN CORPUSCULAR HGB CONC 33.7 % (32.0-36.0); MEAN PLATELET VOLUME 10.4 FL (7.0-11.0); MONO % 4.6 % (0.0-8.0); MONOCYTE # 0.8 TH/MM3 (0-0.9); NEUT % 91.7 % (16.0-70.0); PLATELET COUNT 90 TH/MM3 (150-450); RED BLOOD COUNT 2.86 MIL/MM3 (4.50-5.90); RED CELL DISTRIBUTION WIDTH 14.6 % (11.6-17.2); WHITE BLOOD COUNT 16.6 TH/MM3 (4.0-11.0)
[2017-09-18] MEDS ORDERED: DIATRIZOATE MEGLUM/DIATRIZOATE SOD 9 ML CUP PO ONE (09:24)
[2017-09-18 09:47] LABS: BANDS 17 % (0-6); LYMPHOCYTES 1 % (9-44); METAMYELOCYTES 1 % (0-1); MONOCYTES 2 % (0-8); NEUTROPHIL # MANUAL DIFF 16.1 TH/MM3 (1.8-7.7); POLYS (SEG NEUTROPHILS) 79 % (16-70)
[2017-09-18 09:48] LABS: ALBUMIN 2.1 GM/DL (3.4-5.0); BICARBONATE 22.9 MEQ/L (21.0-32.0); CREATININE 5.25 MG/DL (0.60-1.30); PHOSPHORUS 8.8 MG/DL (2.5-4.9)
--- NOTE | 2017-09-18 09:52 | HHI.CCPN ---
Subjective Remarks/Hospital Course 67-year-old very pleasant gentleman initially admitted for same day surgery for polyp removal. Due to some complications in the OR he required a colonoscopy during the surgery and now he is postop day 4 status post robotic ascending colectomy. He also required bilateral ureteral catheter placement by urology. Postoperatively he was given Toradol, received 12 doses. He is now on IVF, urine output is very low and he has cola colored urine. He continues to be profoundly acidotic and the x-ray today shows pneumoperitoneum that is new compared to previous images. The patient's surgeon Dr. Mcclellan is at the bedside and she is taking him immediately to operating room for a revision. The patient during my exam is not in distress. 09/12: Remains very critical in septic shock. CVVH started yesterday. Remains on Levophed, dontrell-synephrine and and vasopressin plus stress dose steroids. s/p Small bowel enterotomy with leakage of small bowel contents, s/p diverting ileostomy. WBC up to 19.5, platelet count 64 today 09/13: Continues to be intubated remains critical but slight improvement in hemodynamics. Levophed is down to 12 mcg/m remains on vasopressin. Dontrell- Synephrine was restarted overnight currently at 60 mcg/m but will wean to DC. Platelet count further down now 45 most likely from sepsis and consumption. Check hit screen. CVVH filter clot transitioning to hemodialysis today. Appreciate ID consult. WBC count is up to 25.2 today Subjective 09/14: Afebrile. Currently only on vasopressin to maintain mean arterial pressure greater than equal to 65. Norepinephrine is been discontinued along with Dontrell-Synephrine. Platelets currently 31. LDH, haptoglobin and peripheral smear pending. No bleeding apparent. 09/15: May need to replace HD catheter, flow sluggish. Tapering vasopressors but platelets remain low. 09/16. Platelet count 56,[address] new hemodialysis catheter. Unfortunately there are no access it is available in the neck. Examination of the groins reveals that the areas are much too contaminated to allow for line placement. The only sites available are subclavian approach. I have discussed this with Dr. Breen and he agrees to proceed with subclavian placement. This should not be a situation requiring long-term hemodialysis. MAURICE panel negative. 09/17: Remains intubated sedated, new hemodialysis catheter placed today. Plan for hemodialysis today. WBC count 11.9 to 18.4 today, but patient remains on stress dose steroids. Start weaning hydrocortisone. Urine output remains minimal. Platelet count improving 66 today 09/18: Remains critical remains hemodynamically stable but increasing brownish thick output from the bilateral BRANDEN drains. Midline incision with some eschar formation Dr. Mcclellan made aware. CT of the abdomen pelvis stat to rule out abscess/fluid collections. CBC and CMP are pending today Objective Vital Signs Date Time Temp Pulse Resp B/P (MAP) Pulse Ox O2 Delivery O2 Flow Rate FiO2 09/18/17 07:52 95 45 09/18/17 06:00 67 09/18/17 04:00 99.1 16 130/51 (77) Intake and Output 09/18/17 09/18/17 09/19/17 08:00 16:00 00:00 Output Total 285 ml Balance -285 ml Result Diagram: 09/17/17 0525 09/17/17 0525 Imaging Last Impressions Chest X-Ray 09/14/17 0600 Signed Impressions: Service Date/Time: Thursday, September 14, 2017 03:40 - CONCLUSION: No significant interval change. Persistent left lower lobe atelectasis versus consolidation and mild hazy bilateral lung opacity. Valeriy Gagnon MD Abdomen X-Ray 09/13/17 0000 Signed Impressions: Service Date/Time: September 10:52 - CONCLUSION: Gastric tube tip and side-port project over the stomach. Andrés Gardner MD Renal Ultrasound 09/10/17 0000 Signed Impressions: Service Date/Time: Sunday, September 10, 2017 15:17 - CONCLUSION: No evidence of mass or hydronephrosis. Andrés Gardner MD Objective Remarks GENERAL: 67-year-old male currently orotracheally intubated, now on sedation medication SKIN: Warm and dry. See GI exam for abdominal incision HEAD: Normocephalic. EYES: MARIO. EOMI. ENT: Orotracheally intubated. NG in left nares. NECK: Supple, trachea midline. Right IJ cordis with dual-lumen catheter is clean dry and intact. Left subclavian hemodialysis catheter in place CARDIOVASCULAR: Regular rate and rhythm without murmurs, gallops, or rubs. No JVD. Remains on amiodarone infusion RESPIRATORY: Breath sounds equal bilaterally. Currently on assist control ventilation. Decreased breath sounds in the bases. GASTROINTESTINAL: Abdominal binder in place, some what tense. ileostomy pink, bilateral BRANDEN drains with brown thick secretions. Midline incision with some eschar formation MUSCULOSKELETAL: With 1+ bilateral lower extremity edema NEURO EXAM: Arousable on the ventilator, following commands on sedation hold. Moves all 4 extremities spontaneously. Opens eyes and tracks. Line: Central Venous Catheter Side: Left Location: Internal, Jugular A/P Assessment and Plan Neuro: Toxic metabolic encephalopathy Patient is currently on a propofol drip/fentanyl drip for sedation/analgesia while intubated Goal of RA SS -2. Daily sedation vacation Mild encephalopathy improving Resp Acute hypoxemic respiratory failure ACV 16/500/8/50, Ventilator bundle Albuterol/ipratropium aerosols every 6 hours with albuterol aerosols every 2. hours as needed dyspnea Daily CPAP trials Follow-up chest x-ray in a.m. CVS: Severe septic shock-resolved Lactic acidosis A fib with RVR, now NSR Coronary disease status post stent times 07/2015 History of hypertension History of dyslipidemia -s/p Aggressively fluid resuscitated -Currently off all pressors -Holding all home antihypertensives (metoprolol succinate 25 mg daily and amlodipine 5 mg by mouth daily, and losartan 100 mg by mouth daily -Holding aspirin 81 mg by mouth daily with low platelet -DC Amiodarone drip at 0.5 mcg/min, start Coreg 3.125 mg bid. Cannot anticoagulate due to recent surgery and thrombocytopenia -2D echocardiogram 09/13 - left ventricular systolic function normal with an estimated ejection fraction in the range of 50-55%. No definite regional wall motion abnormalities. There is mild tricuspid regurgitation. PASP 44 mmHg. -On hydrocortisone sodium 50 q8 for 3 days and stop. Renal//FEN Acute kidney failure Hyponatremia -Most likely secondary to ATN/septic shock -Nephrology Dr. Zhu following, CVVH started 09/11/17, transition to IHD 09/13 -3.5 L with hemodialysis 09/17, possible IHD again today. -Left subclavian Vas-Cath paced 09/16/17 GI/ID Small bowel enterotomy with leakage of small bowel contents, status post ex lap s/p diverting ileostomy POD 7 Peritonitis with septic shock -Status post ascending colectomy 09/07 pod 10 -Status post ex lap irrigation and diverting ileostomy for small bowel perforation pod 7 -Increasing brown thick output from BRANDEN drains, stat CT abdomen pelvis to rule out abscess formation -Continue metronidazole, piperacillin/tazobactam, ceftaroline and micafungin and vancomycin. Per ID -Post op Management per Dr. Mcclellan general surgery -Cultures negative to date HEME: Leukocytosis Normocytic anemia Thrombocytopenia-improving -Monitor CBC, coags -Thrombocytopenia secondary to sepsis, DIC -f/u LDH, haptoglobin and peripheral smear -Hematology consultation for persistent thrombocytopenia likely secondary to sepsis/consumptive -Holding sq Heparin, HIT screen negative panel -Platelet count 90,000 today, will resume sq heparin ENDO: Hyperglycemia History of gout Hypothyroidism Sliding scale insulin with NovoLog to maintain euglycemia/low regimen every 6 hours Holding allopurinol 100 mg by mouth daily for gout/home medication Levothyroxine 50 mcg by tube daily. IV levothyroxine limited to myxedema coma only at [place] due to nationwide shortage DVT GI prophylaxis -Luis M's and SCDs -Subcu heparin-on hold due to thrombocytopenia, resume today -Famotidine Overall impression: Critically ill with persistent sepsis and respiratory failure. Acute kidney injury with requiring hemodialysis. Prognosis guarded, but some improvement in hemodynamics. Increasing BRANDEN output brown discharge concerning for abscess formation. await CT abdomen pelvis Critical care time 35 minutes aside from procedures. Eileen Bautista MD Sep 18, 2017 09:52
[2017-09-18] MEDS: CARVEDILOL 3.125 MG TAB PO SCH ×2 (10:00→21:14)
--- NOTE | 2017-09-18 10:28 | HHI.NPPN ---
Subjective Renal Failure: Acute Interval History Remains intubated, sedated. at bedside. Oligoanuric. Renal function is worse despite daily HD. (Helena Malave) Review of Systems General General Remarks unable to evaluate (Helena Malave) Objective Data Data Vital Signs Date Time Temp Pulse Resp B/P (MAP) Pulse Ox O2 Delivery O2 Flow Rate FiO2 09/18/17 07:52 95 45 09/18/17 06:00 67 09/18/17 04:00 99.1 70 16 130/51 (77) 96 09/18/17 04:00 69 09/18/17 04:00 45 09/18/17 03:24 96 45 09/18/17 02:00 76 09/18/17 00:44 77 152/60 09/18/17 00:02 95 45 09/18/17 00:00 45 09/18/17 00:00 71 09/18/17 00:00 98.9 71 16 125/51 (75) 95 09/17/17 22:00 80 09/17/17 20:11 94 45 09/17/17 20:00 45 09/17/17 20:00 99.3 80 17 146/54 (84) 95 09/17/17 20:00 80 09/17/17 18:00 82 09/17/17 16:00 98.2 80 17 130/56 (80) 92 09/17/17 16:00 80 09/17/17 16:00 45 09/17/17 14:17 96 45 09/17/17 14:00 72 09/17/17 12:00 97.8 74 17 132/56 (81) 95 09/17/17 12:00 45 09/17/17 12:00 74 09/17/17 11:12 95 45 09/17/17 10:29 76 139/50 (Helena Malave) -: 09/18/17 0845 09/18/17 0845 Microbiology 09/17/17 Gram Stain - Final, Resulted 09/17/17 Body Fluid Culture, Resulted Pending Tubes & Lines: Vas-Cath, Canela Tubes & Lines Comment TLC right IJ VC left IJ A line ileostomy RLQ BRANDEN drains x 2 abd Drip Comment fentanyl, amiodarone, propofol. (Helena Malave) Physical Exam General Appearance: Well Developed, Comfortable Appearance Remarks intubated, sedated, eyes closed (Helena Malave) Throat Throat Exam: Oral Mucosa [place] & Moist (Helena Maalve) Neck Neck Exam: Neck Supple (Helena Malave) Pulmonary Resp Exam: Breath Sounds Equal, No Distress, Decreased Bases Resp Remarks vented lung sounds (Helena Malave) Cardiology CV Exam: Regular, Normal Sinus Rhythm (Helena Malave) Gastrointestinal/Abdomen GI Exam: Soft, Positive Bowel Movement, Distended, Bowel Sounds Hypoactive GI Remarks abd binder in place, BRANDEN drain in place x2 ileostomy, stoma is pink, has small output (Helena Malave) Genitourinary Remarks oliguric, urine is dark (Helena Malave) Musculoskeletal MS Exam: Joints Intact, Good Strength, Unable to Ambulate (Helena Malave) Integumentary Skin Exam: Warm, Dry, Intact Skin Remarks midabdominal incision (Helena Malave) Extremeties Extremities Exam: Pedal Pulses Palpable, Moderate Edema (Helena Malave) Neurologic Neuro Exam: Unresponsive, Sedated (Helena Malave) Psychiatric Psych Exam: Appropriate Responses (Helena Malave) VTE Prophylaxis Device: SCDs (Helena Malave) Assessment/Plan Discussed Condition With: Spouse Assessment Summary: JOSEF/Acute Renal Failure, Acute Tubular Necrosis, Hypotension Electrolyte Assessment: Hypocalcemia Problem List: (1) JOSEF (acute kidney injury) ICD Codes: N17.9 - Acute kidney failure, unspecified Plan: His renal function is normal at baseline JOSEF due to ATN, oligoanuric On CRRT from 09/11-09/12. Has been on daily IHD since 09/13. 3.5 L fluid removal yesterday. We will dialyze later today. Fluid status has improved. Vascath in left subclavian functions okay for now Avoid nephrotoxic agents. (2) S/P partial colectomy ICD Codes: Z90.49 - Acquired absence of other specified parts of digestive tract Plan: He developed small bowel perforation after robotic surgery, s/p emergent ex lap with I&D 4/3 Management per surgery , has ileostomy that is draining Currently NPO, needs nutritional support Prognosis is guarded. (3) Sepsis ICD Codes: A41.9 - Sepsis, unspecified organism Plan: Antibiotics include cefepime, Flagyl, and micafungin monitor drug levels when appropriate ID is following (4) Hypocalcemia ICD Codes: E83.51 - Hypocalcemia Plan: On liquid vitamin D for deficiency (Helena Malave) Plan patient was seen and examined. Discussed with patient's . Fluid overload persists. Catabolic. Dialysis again today. (Nish Zhu MD) Helena Malave Sep 18, 2017 10:28 Nish Zhu MD Sep 18, 2017 15:14
[2017-09-18] MEDS: PANTOPRAZOLE SODIUM 40 MG VIAL IVP SCH (10:40)
--- NOTE | 2017-09-18 12:51 | HHI.IDPN ---
Subjective Subjective Remarks is a 67 y/o CM with PMHx significant for CAD, s/p PCI and stents. He was repeatedly diagnosed with sessile polyp and underwent exploratory laparoscopy with robotic takedown of splenic flexure, colonoscopy with tattooing and robotic ascending colectomy on 09/07/17 by . Reportedly, the urine output was low and urology was consulted when despite IVF urine output did not increase. Patient was seen by and underwent cystoscopy and bilateral ureteral catheter insertion with 500 cc of urine obtained. During the hospital stay patient subsequently had abdominal distention and despite NG tube to suction continued to have worsening distention and discomfort. A KUB done earlier on the day of CT on 09/11/2017 was negative for free air but subsequent imaging showed free air so patient was emergently taken to the OR by . Patient was found to have a small bowel defect and large amounts of of bowel contents were visible in peritoneum per op note. Critical Care was consulted and patient is currently being treated for Septic Shock with multiple pressors, IVF boluses given yday. He had low urine output and Nephrology is on the case and CVVHD initiated. Patient had issues with clotting of access line so CVVHD has been interrupted off and on. Patient is currently intubated on a ventilator. Not much resp secretions. Ileostomy output ok. Platelets have been low but no obvious bleeding from any sites. Patient remains sedated on vent. Patient has been started on empiric antibiotics Zosyn IV, Vanco IV x 1 dose, Flagyl IV, Micafungin IV. Left IJ Vascath placed on 09/11/2017 ID consulted for evaluation and Mment of Septic Shock, Secondary peritonitis. Overnight events reviewed, kelly RN HD planned for today again. No fevers No rash No diarrhea Not on pressors but on amiodarone platelets low but trending up HIT neg kelly RN: the midline sutures were opened up in few places by and wet to dry dressing in place. Antibiotics Cefepime IV Flagyl IV Micafungin IV Lines Line sites with no e.o infection Past Medical History reviewed Allergies: Coded Allergies: No Known Allergies (Unverified Allergy, Unknown, 09/07/17) Objective . Vital Signs Date Time Temp Pulse Resp B/P (MAP) Pulse Ox O2 Delivery O2 Flow Rate FiO2 09/18/17 12:19 68 158/60 09/18/17 12:00 67 09/18/17 12:00 45 09/18/17 11:23 96 45 09/18/17 10:00 68 09/18/17 08:00 45 09/18/17 08:00 76 09/18/17 07:52 95 45 09/18/17 06:00 67 09/18/17 04:00 99.1 70 16 130/51 (77) 96 09/18/17 04:00 69 09/18/17 04:00 45 09/18/17 03:24 96 45 09/18/17 02:00 76 09/18/17 00:44 77 152/60 09/18/17 00:02 95 45 09/18/17 00:00 45 09/18/17 00:00 71 09/18/17 00:00 98.9 71 16 125/51 (75) 95 09/17/17 22:00 80 09/17/17 20:11 94 45 09/17/17 20:00 45 09/17/17 20:00 99.3 80 17 146/54 (84) 95 09/17/17 20:00 80 09/17/17 18:00 82 09/17/17 16:00 98.2 80 17 130/56 (80) 92 09/17/17 16:00 80 09/17/17 16:00 45 09/17/17 14:17 96 45 09/17/17 14:00 72 . Laboratory Tests Test 09/17/17 05:25 09/18/17 08:45 White Blood Count 18.4 TH/MM3 16.6 TH/MM3 Red Blood Count 3.01 MIL/MM3 2.86 MIL/MM3 Hemoglobin 9.2 GM/DL 8.4 GM/DL Hematocrit 26.6 % 25.1 % Mean Corpuscular Volume 88.4 FL 87.5 FL Mean Corpuscular Hemoglobin 30.5 PG 29.5 PG Mean Corpuscular Hemoglobin Concent 34.4 % 33.7 % Red Cell Distribution Width 14.6 % 14.6 % Platelet Count 66 TH/MM3 90 TH/MM3 Mean Platelet Volume 10.1 FL 10.4 FL Neutrophils (%) (Auto) 90.0 % 91.7 % Lymphocytes (%) (Auto) 4.2 % 3.5 % Monocytes (%) (Auto) 5.7 % 4.6 % Eosinophils (%) (Auto) 0.0 % 0.0 % Basophils (%) (Auto) 0.1 % 0.2 % Neutrophils # (Auto) 16.6 TH/MM3 15.3 TH/MM3 Lymphocytes # (Auto) 0.8 TH/MM3 0.6 TH/MM3 Monocytes # (Auto) 1.1 TH/MM3 0.8 TH/MM3 Eosinophils # (Auto) 0.0 TH/MM3 0.0 TH/MM3 Basophils # (Auto) 0.0 TH/MM3 0.0 TH/MM3 CBC Comment AUTO DIFF AUTO DIFF Differential Comment AUTO DIFF CONFIRMED FINAL DIFF MANUAL Toxic Granulation 1+ Platelet Estimate LOW LOW Platelet Morphology Comment NORMAL NORMAL Differential Total Cells Counted 100 Neutrophils % (Manual) 79 % Band Neutrophils % 17 % Lymphocytes % 1 % Monocytes % 2 % Neutrophils # (Manual) 16.1 TH/MM3 Metamyelocytes 1 % Red Cell Morphology Comment NORMAL Laboratory Tests Test 09/16/17 18:50 09/17/17 05:25 09/18/17 08:45 Blood Urea Nitrogen 88 MG/DL 84 MG/DL 97 MG/DL Creatinine 5.07 MG/DL 4.75 MG/DL 5.25 MG/DL Random Glucose 101 MG/DL 120 MG/DL 133 MG/DL Albumin 1.7 GM/DL 1.6 GM/DL 2.1 GM/DL Calcium Level 7.5 MG/DL 7.5 MG/DL 8.0 MG/DL Phosphorus Level 6.3 MG/DL 6.9 MG/DL 8.8 MG/DL Magnesium Level 2.5 MG/DL 2.6 MG/DL Sodium Level 136 MEQ/L 138 MEQ/L 138 MEQ/L Potassium Level 4.5 MEQ/L 4.7 MEQ/L 5.3 MEQ/L Chloride Level 98 MEQ/L 99 MEQ/L 101 MEQ/L Carbon Dioxide Level 24.2 MEQ/L 23.4 MEQ/L 22.9 MEQ/L Anion Gap 14 MEQ/L 16 MEQ/L 14 MEQ/L Estimat Glomerular Filtration Rate 11 ML/MIN 12 ML/MIN 11 ML/MIN Microbiology Date/Time Source Procedure Growth Status 09/17/17 14:50 Fluid Other Gram Stain - Final Resulted 09/17/17 14:50 Body Fluid Culture - Preliminary Gram Negative Alejandro Resulted Imaging Last Impressions Chest X-Ray 09/13/17 0600 Signed Impressions: Service Date/Time: September 05:23 - CONCLUSION: Slight interval worsening in aeration. Michele Coleman MD Abdomen X-Ray 09/13/17 0000 Signed Impressions: Service Date/Time: September 10:52 - CONCLUSION: Gastric tube tip and side-port project over the stomach. Andrés Gardner MD Renal Ultrasound 09/10/17 0000 Signed Impressions: Service Date/Time: Sunday, September 10, 2017 15:17 - CONCLUSION: No evidence of mass or hydronephrosis. Andrés Gardner MD Physical Exam GENERAL: This is a well-nourished, well-developed patient, in no apparent distress. SKIN: No rashes, ecchymoses or lesions. Cool and dry. HEAD: Atraumatic. Normocephalic. No temporal or scalp tenderness. EYES: Pupils equal round and reactive. No scleral icterus. No injection or drainage. ENT: Intubated. NECK: Trachea midline. Supple, nontender, no meningeal signs. CARDIOVASCULAR: HS audible. RESPIRATORY: Clear to auscultation. Breath sounds equal bilaterally but decreased in the bases. GASTROINTESTINAL: Abdomen soft, Ostomy bag with green liquid stool. BRANDEN drain x 2, left drain with greyish drainage. Midline sutures now with gaping after sutures removed and wet to dry dressing in place. MUSCULOSKELETAL: Extremities without clubbing, cyanosis. Pedal edema noted. No joint tenderness, effusion. 2-3+ pedal edema noted. No calf tenderness. NEUROLOGICAL: Sedated Psych could not be assessed IV line sites with no e.o infection. Assessment & Plan Remarks Severe Sepsis with Shock Secondary peritonitis due to small bowel perforation s/p Enterostomy and washout s/p robotic splenic flexure takedown on 09/07/17 s/p cystoscopy with bilateral ureteroscopies on 09/07/2017 Thrombocytopenia: sepsis, DIC Acute renal failure: prerenal, sepsis. On CVVHD. Recs: Continue Cefepime IV Continue Micafungin IV (will deescalate to Diflucan in am) Continue Flagyl IV for anaerobic coverage. Follow cultures Follow clinically. Kelly RN: to have look at the sutures further below as well and consider removal of sutures. Lu Orozco MD Sep 18, 2017 12:51
--- NOTE | 2017-09-18 13:49 | PD.ONC.PN ---
Subjective Subjective Remarks Afebrile overnight. patient intubated and sedated. Objective Data Date Time Temp Pulse Resp B/P (MAP) Pulse Ox O2 Delivery O2 Flow Rate FiO2 09/18/17 12:19 68 158/60 09/18/17 12:00 67 09/18/17 12:00 45 09/18/17 11:23 96 45 09/18/17 10:00 68 09/18/17 08:00 45 09/18/17 08:00 76 09/18/17 07:52 95 45 09/18/17 06:00 67 09/18/17 04:00 99.1 70 16 130/51 (77) 96 09/18/17 04:00 69 09/18/17 04:00 45 09/18/17 03:24 96 45 09/18/17 02:00 76 09/18/17 00:44 77 152/60 09/18/17 00:02 95 45 09/18/17 00:00 45 09/18/17 00:00 71 09/18/17 00:00 98.9 71 16 125/51 (75) 95 09/17/17 22:00 80 09/17/17 20:11 94 45 09/17/17 20:00 45 09/17/17 20:00 99.3 80 17 146/54 (84) 95 09/17/17 20:00 80 09/17/17 18:00 82 09/17/17 16:00 98.2 80 17 130/56 (80) 92 09/17/17 16:00 80 09/17/17 16:00 45 09/17/17 14:17 96 45 09/17/17 14:00 72 09/18/17 09/18/17 09/18/17 07:00 15:00 23:00 Output Total 285 ml Balance -285 ml Result Diagram: 09/18/17 0845 09/18/17 0845 Laboratory Results Laboratory Tests Test 09/18/17 08:45 White Blood Count 16.6 TH/MM3 Red Blood Count 2.86 MIL/MM3 Hemoglobin 8.4 GM/DL Hematocrit 25.1 % Mean Corpuscular Volume 87.5 FL Mean Corpuscular Hemoglobin 29.5 PG Mean Corpuscular Hemoglobin Concent 33.7 % Red Cell Distribution Width 14.6 % Platelet Count 90 TH/MM3 Mean Platelet Volume 10.4 FL Neutrophils (%) (Auto) 91.7 % Lymphocytes (%) (Auto) 3.5 % Monocytes (%) (Auto) 4.6 % Eosinophils (%) (Auto) 0.0 % Basophils (%) (Auto) 0.2 % Neutrophils # (Auto) 15.3 TH/MM3 Lymphocytes # (Auto) 0.6 TH/MM3 Monocytes # (Auto) 0.8 TH/MM3 Eosinophils # (Auto) 0.0 TH/MM3 Basophils # (Auto) 0.0 TH/MM3 CBC Comment AUTO DIFF Differential Total Cells Counted 100 Neutrophils % (Manual) 79 % Band Neutrophils % 17 % Lymphocytes % 1 % Monocytes % 2 % Neutrophils # (Manual) 16.1 TH/MM3 Metamyelocytes 1 % Differential Comment FINAL DIFF MANUAL Platelet Estimate LOW Platelet Morphology Comment NORMAL Red Cell Morphology Comment NORMAL Blood Urea Nitrogen 97 MG/DL Creatinine 5.25 MG/DL Random Glucose 133 MG/DL Albumin 2.1 GM/DL Calcium Level 8.0 MG/DL Phosphorus Level 8.8 MG/DL Sodium Level 138 MEQ/L Potassium Level 5.3 MEQ/L Chloride Level 101 MEQ/L Carbon Dioxide Level 22.9 MEQ/L Anion Gap 14 MEQ/L Estimat Glomerular Filtration Rate 11 ML/MIN Culture Results Microbiology Date/Time Source Procedure Growth Status 09/17/17 14:50 Fluid Other Gram Stain - Final Resulted 09/17/17 14:50 Body Fluid Culture - Preliminary Gram Negative Alejandro Resulted Administered Medications Medications (Trade) Dose Ordered Sig/Emilee Route PRN Reason Start Time Stop Time Status Last Admin Dose Admin Pantoprazole Sodium (Protonix Inj) 40 mg DAILY IVP 09/08/17 09:00 09/18/17 10:40 Ondansetron HCl (Zofran Inj) 4 mg Q6H PRN IV PUSH NAUSEA 09/07/17 16:00 09/08/17 01:06 Heparin Sodium (Porcine) (Heparin Inj) 5,000 units Q12H SQ 09/08/17 15:00 Future Hold 09/12/17 02:46 Amlodipine Besylate (Norvasc) 5 mg DAILY PO 09/08/17 09:00 Future Hold 09/10/17 09:50 Metoprolol Succinate (Toprol Xl) 25 mg DAILY PO 09/08/17 09:00 Future Hold 09/10/17 09:50 Hydromorphone HCl (Dilaudid Pf Inj) 0.2 mg Q3H PRN IV PAIN 1-10 09/08/17 21:45 09/10/17 23:32 Sodium Chloride 1,000 ml @ 0 mls/hr Q0M PRN OTHER For Prime & Rinse Back 09/11/17 09:25 09/16/17 20:09 Heparin Sodium (Porcine) (Heparin Inj) 8,000 units UNSCH PRN IV FLUSH WITH DIALYSIS 09/11/17 09:30 09/17/17 15:47 Albumin Human 100 ml @ 60 mls/hr UNSCH PRN IV WITH DIALYSIS 09/11/17 09:30 09/17/17 15:48 Sodium Chloride (NS Flush) 5 ml UNSCH PRN IV FLUSH WITH DIALYSIS 09/11/17 09:30 09/16/17 20:08 Heparin Sodium (Porcine) (Heparin Inj) UNSCH PRN .XX WITH DIALYSIS 09/11/17 09:30 09/16/17 20:09 Gentamicin Sulfate (Gentamicin Inj) 20 mg UNSCH PRN OTHER WITH DIALYSIS 09/11/17 09:30 09/17/17 15:46 Vasopressin 40 units/Dextrose 100 ml @ 1.5 mls/hr TITRATE PRN IV Blood Pressure Management 09/11/17 11:30 09/14/17 08:40 Amiodarone HCl 450 mg/Sodium Chloride 250 ml @ 33.33 mls/ hr Q7H31M PRN IV Per Protocol 09/11/17 12:00 09/18/17 12:19 Propofol 100 ml @ 2.895 mls/ hr TITRATE PRN IV SEDATION 09/11/17 12:45 09/18/17 11:38 Phenylephrine HCl 80 mg/Dextrose 500 ml @ 15 mls/hr TITRATE PRN IV Blood pressure Management 09/11/17 16:45 09/12/17 07:00 Micafungin Sodium 150 mg/Sodium Chloride 100 ml @ 100 mls/hr Q24H IV 09/11/17 18:00 09/17/17 18:28 Fentanyl Citrate 250 ml @ 5 mls/hr TITRATE PRN IV SEDATION 09/12/17 11:00 09/17/17 17:31 Artificial Tears (Tears Naturale Opth Soln) 1 drop Q8HR EACH EYE 09/14/17 14:00 09/18/17 05:07 Levothyroxine Sodium (Synthroid) 50 mcg DAILY@0600 PO 09/15/17 06:00 09/18/17 05:08 Cholecalciferol (Vitamin D Liq) 2,000 units DAILY PO 09/14/17 14:30 09/16/17 09:00 Hydralazine HCl (Apresoline Inj) 10 mg Q30M PRN IV PUSH SBP > 170 09/15/17 14:00 09/15/17 21:00 Metronidazole 100 ml @ 100 mls/hr Q8H IV 09/16/17 20:00 09/18/17 12:03 Albuterol/ Ipratropium (Duoneb Neb) 1 ampule Q6HR NEB NEB 09/17/17 16:00 09/18/17 07:55 Hydrocortisone Sodium Succinate (SoluCORTEF INJ) 50 mg Q8HR IV 09/17/17 14:00 09/20/17 21:59 09/18/17 05:06 Metoclopramide HCl (Reglan Inj) 5 mg Q8HR IV PUSH 09/17/17 22:00 09/18/17 05:07 Objective Remarks GENERAL: intubated, sedated male lying in bed. SKIN: Warm and dry. HEAD: Normocephalic. EYES: No injection or drainage. NECK: Supple, trachea midline. CARDIOVASCULAR: +S1/S2 RESPIRATORY: anterior escobedo with occasional rhonchi. on mechanical ventilation GASTROINTESTINAL: Abdomen distended, abdominal binder in place. EXTREMITIES: No cyanosis MUSCULOSKELETAL: Adequate muscle tone. NEUROLOGICAL: intubated, sedated. Assessment/Plan Problem List: (1) Thrombocytopenia ICD Codes: D69.6 - Thrombocytopenia, unspecified Plan: 09/18: platelets 90K Hx/Workup: Patient is known to have thrombocytopenia that usually is maintained above 100,000. The patient had a exploratory laparotomy with robotic takedown of the splenic flexure due to a large colonic polyp. Unfortunately he developed perforation with sepsis and is now noted to have worsening cytopenias. --Thrombocytopenia likely due to sepsis --The possible drug effect due to the cephalosporin --Continue to monitor CBC Assessment 67-year-old male with history of thrombocytopenia admitted for a large colonic polyp who developed perforation with sepsis and worsening cytopenias Plan 1. monitor CBC. platelets continuing to recover. 2. hematology will sign off. please call or reconsult if needed. Attending Statement The exam, history, and the medical decision-making described in the above note were completed with the assistance of the mid-level provider. I reviewed and agree with the findings presented. I attest that I had a [id number] encounter with the patient on the same day, and personally performed and documented my assessment and findings in the medical record. Pt eyes open spontaneously, receiving dialysis in evening. Platelets noted to continue to improve- near pt's baseline. Noted decrease hgb, no active bleed, however labs were pre dialysis. Drain on L with aguilar, brown thick material, liquid dark color stool, R drain with brownish thick liquid. Abdomen still firm. Less swelling in arms. L neck dressing dry. Parul Dubon Sep 18, 2017 13:49 Shannan Romo MD Sep 18, 2017 19:42
--- NOTE | 2017-09-18 15:40 | PD.WCN.NOT ---
Wound Consult Description: New ostomy teaching ordered by Communicated with: Ashwini MAGUIRE Recommendation: Monitor ileostomy color and output Q4H Additional Information: Patient seen on [place] for ostomy assessment. Ostomy Type: Ileostomy Surgeon: Ivory Mcclellan MD Date of Surgery: Sep 11, 2017 Additional information Patient seen on with Lacie MAGUIRE, [facility] for ostomy assessment of ileostomy located on left mid abdomen. 2 piece appliance is noted to be intact underneath binder with a pouch half full of dark green liquid effluent not emptied by proposal writer. Stoma is red, oval, moist, protruding, functioning. Plan for ostomy pouching system to be changed tomorrow Sunday09/19/17. [facility] Sep 18, 2017 15:40
--- NOTE | 2017-09-18 16:58 | RADRPT ---
EXAM DATE/TIME: 09/18/2017 15:55 [facility] COMPARISON: No previous studies available for comparison. INDICATIONS : Evaluate for abscess. ORAL CONTRAST: Prescribed oral contrast ingested. RADIATION DOSE: 9.62 CTDIvol (mGy) MEDICAL HISTORY : Cardiovascular disease. Hypertension. SURGICAL HISTORY : None. ENCOUNTER: Initial ACUITY: 1 day PAIN SCALE: 7/10 LOCATION: Abdomen. TECHNIQUE: Volumetric scanning of the abdomen and pelvis was performed. Using automated exposure control and ad justment of the mA and/or kV according to patient size, radiation dose was kept as low as reasonably achievable to obtain optimal diagnostic quality images. DICOM format image data is available electro nically for review and comparison. FINDINGS: LOWER LUNGS: Small bilateral pleural effusions with adjacent alveolar consolidations consistent with compressive a telectasis or pneumonia. Clinical correlation is recommended. Cardiomegaly and coronary artery calcif ication are noted. LIVER: 2 low-density lesions within the liver measuring 1.8 cm in the right dome and 1.2 cm in the inferior right lobe which are indeterminate on this unenhanced examination. There is no dilation of the biliar y tree. Cholelithiasis is noted. SPLEEN: Normal size without lesion. PANCREAS: Within normal limits. KIDNEYS: Normal in size and shape. There is no solid mass, stone, or hydronephrosis. 8.5 cm right renal cyst is noted. ADRENAL GLANDS: Within normal limits. VASCULAR: There is no aortic aneurysm. BOWEL/MESENTERY: The stomach, small bowel, and colon demonstrate no acute abnormality. There is no free intraperitone al air or fluid. No intra-abdominal abscess is noted. Bilateral surgical drains are noted. ABDOMINAL WALL: Within normal limits. RETROPERITONEUM: There is no lymphadenopathy. BLADDER: No wall thickening or mass. Canela catheter noted within the urinary bladder lumen. REPRODUCTIVE: Within normal limits. INGUINAL: There is no lymphadenopathy or hernia. MUSCULOSKELETAL: Degenerative changes and scoliosis of the lumbar spine are noted. CONCLUSION: 1. No evidence of intra-abdominal abscess. 2. Small bilateral pleural effusions with adjacent alveolar consolidations consistent with compressiv e atelectasis or pneumonia. Clinical correlation is recommended. 3. Cholelithiasis. 4. 8.5 cm right renal cyst. 5. Degenerative changes and scoliosis of the thoraco-lumbar spine. 6. 2 low-density lesions within the liver measuring 1.8 cm in the right dome and 1.2 cm in the inferi or right lobe which are indeterminate on this unenhanced examination. 7. Cardiomegaly and coronary artery calcification noted. Edwin Marie MD on September 18, 2017 at 16:46 Board Certified Radiologist. This report was verified electronically.
[2017-09-18] MEDS: GENTAMICIN SULFATE 20 MG/2 ML VIAL OTHER PRN (17:16)
[2017-09-18] MEDS: HEPARIN SODIUM - IV 10,000 UNITS/10 ML VIAL PRN (17:16)
[2017-09-18] MEDS: ALBUMIN 25% INJ 100 ML IV PRN (17:41)
[2017-09-18] MEDS: MICAFUNGIN INJ 150 MG in SODIUM CHLORIDE 0.9% INJ 100 ML IV SCH (18:27)
[2017-09-18] MEDS: CEFEPIME 1000 MG/NS 100 ML IV SCH ×2 (21:13)
[2017-09-19] VITALS (18 sets, daily range): BP systolic 123–180; BP diastolic 45–70; PULSE 55–86; RESP 16–26; TEMP 98–99.6; O2SAT 92–96
[2017-09-19] MEDS: PROPOFOL 1000 MG/100 ML INJ 100 ML IV PRN ×2 (00:59→06:46)
[2017-09-19] MEDS: RESP: ALBUTEROL 2.5 MG/IPRATROPIUM 0.5 MG NEB (SCH) NEB ×4 (03:09→19:27)
[2017-09-19] MEDS: metroNIDAZOLE 500 MG INJ 100 ML IV SCH ×3 (03:36→19:55)
--- NOTE | 2017-09-19 05:35 | RADRPT ---
EXAM DATE/TIME: 09/19/2017 04:53 [facility] COMPARISON: CHEST SINGLE AP, September 16, 2017, 15:14. INDICATIONS : Shortness of breath. MEDICAL HISTORY : Hypertension. Myocardial infarction. SURGICAL HISTORY : Coronary artery stent. ENCOUNTER: Subsequent ACUITY: 1 week PAIN SCORE: Non-responsive. LOCATION: Bilateral chest FINDINGS: A single view of the chest demonstrates bibasilar densities slightly improved. Endotracheal tube, willis ogastric tube, left subclavian and right jugular lines are stable. Osseous structures are intact. CONCLUSION: Slightly improving bibasilar densities. Lazarus Penaloza MD on September 19, 2017 at 5:33 Board Certified Radiologist. This report was verified electronically.
[2017-09-19] MEDS: ARTIFICIAL TEARS OPTH SOLN 15 ML BTL EACH EYE SCH ×3 (05:37→21:25)
[2017-09-19] MEDS: METOCLOPRAMIDE HCL 10 MG/2 ML VIAL IV PUSH SCH ×3 (05:37→21:02)
[2017-09-19] MEDS: LEVOTHYROXINE SODIUM 50 MCG TAB PO SCH (05:37)
[2017-09-19] MEDS: INSULIN ASPART SUPPLEMENTAL SCALE SQ SCH ×5 (06:00→23:26)
[2017-09-19 06:03] LABS: AUTOMATED NEUTROPHIL # 12.6 TH/MM3 (1.8-7.7); BASOPHIL % 0.2 % (0.0-2.0); HEMATOCRIT 22.2 % (39.0-51.0); HEMOGLOBIN 7.6 GM/DL (13.0-17.0); LYMPH % 2.7 % (9.0-44.0); LYMPHOCYTE # 0.4 TH/MM3 (1.0-4.8); MEAN CELL VOLUME 87.6 FL (80.0-100.0); MEAN CORPUSCULAR HEMOGLOBIN 30.1 PG (27.0-34.0); MEAN CORPUSCULAR HGB CONC 34.4 % (32.0-36.0); MEAN PLATELET VOLUME 10.3 FL (7.0-11.0); MONO % 5.4 % (0.0-8.0); MONOCYTE # 0.7 TH/MM3 (0-0.9); NEUT % 91.7 % (16.0-70.0); PLATELET COUNT 90 TH/MM3 (150-450); RED BLOOD COUNT 2.53 MIL/MM3 (4.50-5.90); RED CELL DISTRIBUTION WIDTH 14.5 % (11.6-17.2); WHITE BLOOD COUNT 13.8 TH/MM3 (4.0-11.0)
[2017-09-19] MEDS: fentaNYL DRIP 250 ML IV PRN (06:07)
[2017-09-19] MEDS: HYDROCORTISONE SOD SUCCINATE 100 MG VIAL IV SCH (06:07)
[2017-09-19 06:28] LABS: ALBUMIN 2.2 GM/DL (3.4-5.0); BICARBONATE 24.6 MEQ/L (21.0-32.0); CALCIUM 7.7 MG/DL (8.5-10.1); CREATININE 4.19 MG/DL (0.60-1.30); MAGNESIUM 2.6 MG/DL (1.5-2.5); PHOSPHORUS 7.9 MG/DL (2.5-4.9)
[2017-09-19 07:54] LABS: BANDS 15 % (0-6); LYMPHOCYTES 4 % (9-44); METAMYELOCYTES 2 % (0-1); MYELOCYTES 2 % (0-0); NEUTROPHIL # MANUAL DIFF 13.2 TH/MM3 (1.8-7.7); POLYS (SEG NEUTROPHILS) 77 % (16-70)
[2017-09-19] MEDS: CHOLECALCIFEROL (VIT D3) LIQ 400 UNITS/ML 50 ML BOTTLE PO SCH (08:37)
[2017-09-19] MEDS: CARVEDILOL 3.125 MG TAB PO SCH ×2 (08:37→19:57)
[2017-09-19] MEDS: PANTOPRAZOLE SODIUM 40 MG VIAL IVP SCH (08:37)
--- NOTE | 2017-09-19 09:16 | HHI.IDPN ---
Subjective Subjective Remarks ID COVERAGE is a 67 y/o CM with PMHx significant for CAD, s/p PCI and stents. He was repeatedly diagnosed with sessile polyp and underwent exploratory laparoscopy with robotic takedown of splenic flexure, colonoscopy with tattooing and robotic ascending colectomy on 09/07/17 by . Reportedly, the urine output was low and urology was consulted when despite IVF urine output did not increase. Patient was seen by and underwent cystoscopy and bilateral ureteral catheter insertion with 500 cc of urine obtained. During the hospital stay patient subsequently had abdominal distention and despite NG tube to suction continued to have worsening distention and discomfort. A KUB done earlier on the day of CT on 09/11/2017 was negative for free air but subsequent imaging showed free air so patient was emergently taken to the OR by . Patient was found to have a small bowel defect and large amounts of of bowel contents were visible in peritoneum per op note. Critical Care was consulted and patient is currently being treated for Septic Shock with multiple pressors, IVF boluses given yday. He had low urine output and Nephrology is on the case and CVVHD initiated. Patient had issues with clotting of access line so CVVHD has been interrupted off and on. Patient is currently intubated on a ventilator. Not much resp secretions. Ileostomy output ok. Platelets have been low but no obvious bleeding from any sites. Patient remains sedated on vent. Patient has been started on empiric antibiotics Zosyn IV, Vanco IV x 1 dose, Flagyl IV, Micafungin IV. Left IJ Vascath placed on 09/11/2017 ID consulted for evaluation and Mment of Septic Shock, Secondary peritonitis. Notes reviewed Temps ok On the vent BP ok, not on pressors Hasd HD yesterday Overnight events reviewed, dw RN Platelet count staying at 90K HIT neg Has output from his ileostomy Labs and cultures reviewed CXR improving infiltrates CT A/P no intraabdominal abscess Antibiotics Cefepime IV Flagyl IV Micafungin IV Current Medications Medications (Trade) Dose Ordered Sig/Emilee Route Start Time Stop Time Status Last Admin (Protonix Inj) 40 mg DAILY IVP 09/08/17 09:00 09/19/17 08:37 (Zofran Inj) 4 mg Q6H PRN IV PUSH 09/07/17 16:00 3/31/18 01:06 (Vasotec Inj) 1.25 mg Q4H PRN IV PUSH 09/07/17 16:00 Future Hold (Vasotec Inj) 2.5 mg Q6H PRN IV PUSH 09/07/17 16:00 Future Hold Potassium Chloride 100 ml @ 50 mls/hr UNSCH PRN IV 09/07/17 16:00 Potassium Chloride 100 ml @ 25 mls/hr UNSCH PRN IV-CENTRAL 09/07/17 16:00 (Heparin Inj) 5,000 units Q12H SQ 09/08/17 15:00 Future Hold 09/12/17 02:46 (Narcan Inj) 0.4 mg UNSCH PRN IV PUSH 09/07/17 16:00 (Benadryl Inj) 25 mg Q6H PRN IV PUSH 09/07/17 16:00 (Norvasc) 5 mg DAILY PO 09/08/17 09:00 Future Hold 09/10/17 09:50 (Toprol Xl) 25 mg DAILY PO 09/08/17 09:00 Future Hold 09/10/17 09:50 (Dilaudid Pf Inj) 0.2 mg Q3H PRN IV 09/08/17 21:45 09/10/17 23:32 (Benadryl Inj) 25 mg HS PRN IV PUSH 09/10/17 20:15 Sodium Chloride 1,000 ml @ 0 mls/hr Q0M PRN OTHER 09/11/17 09:25 09/16/17 20:09 (Heparin Inj) 8,000 units UNSCH PRN IV FLUSH 09/11/17 09:30 09/17/17 15:47 Sodium Chloride 1,000 ml @ 200 mls/hr Q5H PRN IV 09/11/17 09:25 Sodium Chloride 1,000 ml @ 0 mls/hr Q0M PRN OTHER 09/11/17 09:25 (Mannitol Inj) 12.5 gm UNSCH PRN IV 09/11/17 09:30 Albumin Human 100 ml @ 60 mls/hr UNSCH PRN IV 09/11/17 09:30 09/18/17 17:41 (NS Flush) 5 ml UNSCH PRN IV FLUSH 09/11/17 09:30 09/16/17 20:08 (Heparin Inj) UNSCH PRN .XX 09/11/17 09:30 09/18/17 17:16 (Gentamicin Inj) 20 mg UNSCH PRN OTHER 09/11/17 09:30 09/18/17 17:16 (Zofran Inj) 4 mg UNSCH PRN IV PUSH 09/11/17 09:30 (Tylenol) 650 mg UNSCH PRN PO 09/11/17 09:30 (Benadryl) 25 mg UNSCH PRN PO 09/11/17 09:30 (Nitrostat Sl) 0.4 mg UNSCH PRN SL 09/11/17 09:30 (Catapres) 0.1 mg UNSCH PRN PO 09/11/17 09:30 (Gelfoam 12 Mm/7 Mm Top) 1 foam UNSCH PRN TOP 09/11/17 09:30 Vasopressin 40 units/Dextrose 100 ml @ 1.5 mls/hr TITRATE PRN IV 09/11/17 11:30 09/14/17 08:40 Amiodarone HCl 450 mg/Sodium Chloride 250 ml @ 33.33 mls/ hr Q7H31M PRN IV 09/11/17 12:00 09/18/17 12:19 Propofol 100 ml @ 2.895 mls/ hr TITRATE PRN IV 09/11/17 12:45 09/19/17 06:46 Sodium Chloride 1,000 ml @ 0 mls/hr UNSCH PRN OTHER 09/11/17 13:00 (KCl 40 Meq Premix Inj) *FOR DIALYSIS USE IN C... WITH DIALYSIS PRN .XX 09/11/17 13:00 Phenylephrine HCl 80 mg/Dextrose 500 ml @ 15 mls/hr TITRATE PRN IV 09/11/17 16:45 09/12/17 07:00 (Brethine Inj) 1 mg UNSCH PRN SQ 09/11/17 16:45 Micafungin Sodium 150 mg/Sodium Chloride 100 ml @ 100 mls/hr Q24H IV 09/11/17 18:00 09/18/17 18:27 Fentanyl Citrate 250 ml @ 5 mls/hr TITRATE PRN IV 09/12/17 11:00 09/19/17 06:07 (Tears Naturale Opth Soln) 1 drop Q8HR EACH EYE 09/14/17 14:00 09/19/17 05:37 (Albuterol Neb) 2.5 mg Q2HR NEB PRN NEB 09/14/17 09:00 (Synthroid) 50 mcg DAILY@0600 PO 09/15/17 06:00 09/19/17 05:37 (D50w (Vial) Inj) 50 ml UNSCH PRN IV PUSH 09/14/17 09:45 (Glucagon Inj) 1 mg UNSCH PRN OTHER 09/14/17 09:45 (NovoLOG SUPPLEMENTAL SCALE) 1 Q6HR SQ 09/14/17 12:00 (Vitamin D Liq) 2,000 units DAILY PO 09/14/17 14:30 09/19/17 08:37 (Trandate Inj) 20 mg Q2H PRN IV PUSH 09/15/17 14:00 (Apresoline Inj) 10 mg Q30M PRN IV PUSH 09/15/17 14:00 09/15/17 21:00 Metronidazole 100 ml @ 100 mls/hr Q8H IV 09/16/17 20:00 09/19/17 03:36 (Duoneb Neb) 1 ampule Q6HR NEB NEB 09/17/17 16:00 09/19/17 07:27 (SoluCORTEF INJ) 50 mg Q8HR IV 09/17/17 14:00 09/20/17 21:59 09/19/17 06:07 Cefepime HCl 1000 mg/Sodium Chloride 100 ml @ 200 mls/hr Q24H IV 09/18/17 21:00 09/18/17 21:13 (Reglan Inj) 5 mg Q8HR IV PUSH 09/17/17 22:00 09/19/17 05:37 (Tylenol) 1,000 mg Q8H PRN PO 09/18/17 09:00 (Coreg) 3.125 mg Q12HR PO 09/18/17 10:00 09/19/17 08:37 Lines Line sites with no e.o infection Past Medical History reviewed Allergies: Coded Allergies: No Known Allergies (Unverified Allergy, Unknown, 09/07/17) Objective . Vital Signs Date Time Temp Pulse Resp B/P (MAP) Pulse Ox O2 Delivery O2 Flow Rate FiO2 09/19/17 08:30 94 45 09/19/17 07:20 95 45 09/19/17 07:20 45 09/19/17 06:00 57 09/19/17 04:00 56 09/19/17 04:00 98.1 55 16 123/45 (71) 95 09/19/17 04:00 45 09/19/17 03:07 94 45 09/19/17 02:00 55 09/19/17 00:00 61 09/19/17 00:00 98.0 68 16 158/59 (92) 95 09/19/17 00:00 45 09/18/17 23:27 95 45 09/18/17 20:09 92 45 09/18/17 20:00 68 09/18/17 20:00 97.7 68 16 128/49 (75) 96 09/18/17 20:00 45 09/18/17 18:00 71 09/18/17 16:00 70 16 188/76 (113) 99 09/18/17 16:00 67 09/18/17 16:00 45 09/18/17 15:44 100 100 09/18/17 14:00 74 09/18/17 12:19 68 158/60 09/18/17 12:00 67 09/18/17 12:00 45 09/18/17 12:00 98.6 68 16 155/60 (91) 96 09/18/17 11:23 96 45 09/18/17 10:00 68 . Laboratory Tests Test 09/18/17 08:45 09/19/17 04:50 White Blood Count 16.6 TH/MM3 13.8 TH/MM3 Red Blood Count 2.86 MIL/MM3 2.53 MIL/MM3 Hemoglobin 8.4 GM/DL 7.6 GM/DL Hematocrit 25.1 % 22.2 % Mean Corpuscular Volume 87.5 FL 87.6 FL Mean Corpuscular Hemoglobin 29.5 PG 30.1 PG Mean Corpuscular Hemoglobin Concent 33.7 % 34.4 % Red Cell Distribution Width 14.6 % 14.5 % Platelet Count 90 TH/MM3 90 TH/MM3 Mean Platelet Volume 10.4 FL 10.3 FL Neutrophils (%) (Auto) 91.7 % 91.7 % Lymphocytes (%) (Auto) 3.5 % 2.7 % Monocytes (%) (Auto) 4.6 % 5.4 % Eosinophils (%) (Auto) 0.0 % 0.0 % Basophils (%) (Auto) 0.2 % 0.2 % Neutrophils # (Auto) 15.3 TH/MM3 12.6 TH/MM3 Lymphocytes # (Auto) 0.6 TH/MM3 0.4 TH/MM3 Monocytes # (Auto) 0.8 TH/MM3 0.7 TH/MM3 Eosinophils # (Auto) 0.0 TH/MM3 0.0 TH/MM3 Basophils # (Auto) 0.0 TH/MM3 0.0 TH/MM3 CBC Comment AUTO DIFF AUTO DIFF Differential Total Cells Counted 100 100 Neutrophils % (Manual) 79 % 77 % Band Neutrophils % 17 % 15 % Lymphocytes % 1 % 4 % Monocytes % 2 % Neutrophils # (Manual) 16.1 TH/MM3 13.2 TH/MM3 Metamyelocytes 1 % 2 % Differential Comment FINAL DIFF MANUAL FINAL DIFF MANUAL Platelet Estimate LOW LOW Platelet Morphology Comment NORMAL NORMAL Red Cell Morphology Comment NORMAL Myelocytes 2 % Laboratory Tests Test 09/18/17 08:45 09/19/17 04:50 Blood Urea Nitrogen 97 MG/DL 78 MG/DL Creatinine 5.25 MG/DL 4.19 MG/DL Random Glucose 133 MG/DL 126 MG/DL Albumin 2.1 GM/DL 2.2 GM/DL Calcium Level 8.0 MG/DL 7.7 MG/DL Phosphorus Level 8.8 MG/DL 7.9 MG/DL Sodium Level 138 MEQ/L 139 MEQ/L Potassium Level 5.3 MEQ/L 4.7 MEQ/L Chloride Level 101 MEQ/L 101 MEQ/L Carbon Dioxide Level 22.9 MEQ/L 24.6 MEQ/L Anion Gap 14 MEQ/L 13 MEQ/L Estimat Glomerular Filtration Rate 11 ML/MIN 14 ML/MIN Magnesium Level 2.6 MG/DL Microbiology Date/Time Source Procedure Growth Status 09/17/17 14:50 Fluid Other Gram Stain - Final Complete 09/17/17 14:50 Body Fluid Culture - Final Enterobacter Cloacae Complete Imaging Chest X-Ray 09/19/17 0600 Signed Impressions: Service Date/Time: Tuesday, September 19, 2017 04:53 - CONCLUSION: Slightly improving bibasilar densities. Lazarus Penaloza MD Abdomen/Pelvis CT 09/18/17 0000 Signed Impressions: Service Date/Time: Monday, September 18, 2017 15:55 - CONCLUSION: 1. No evidence of intra-abdominal abscess. 2. Small bilateral pleural effusions with adjacent alveolar consolidations consistent with compressive atelectasis or pneumonia. Clinical correlation is recommended. 3. Cholelithiasis. 4. 8.5 cm right renal cyst. 5. Degenerative changes and scoliosis of the thoraco-lumbar spine. 6. 2 low-density lesions within the liver measuring 1.8 cm in the right dome and 1.2 cm in the inferior right lobe which are indeterminate on this unenhanced examination. 7. Cardiomegaly and coronary artery calcification noted. Edwin Marie MD Chest X-Ray 09/13/17 0600 Signed Impressions: Service Date/Time: September 05:23 - CONCLUSION: Slight interval worsening in aeration. Michele Coleman MD Abdomen X-Ray 09/13/17 0000 Signed Impressions: Service Date/Time: September 10:52 - CONCLUSION: Gastric tube tip and side-port project over the stomach. Andrés Gardner MD Renal Ultrasound 09/10/17 0000 Signed Impressions: Service Date/Time: Sunday, September 10, 2017 15:17 - CONCLUSION: No evidence of mass or hydronephrosis. Andrés Gardner MD Physical Exam GENERAL: This is a well-nourished, well-developed patient, in no apparent distress. Eyes open, did not follow SKIN: Cool and dry. NO rash or ecchymoses. Edematous HEAD: Atraumatic. Normocephalic. EYES: Pupils equal round and reactive. No scleral icterus. No injection or drainage. ENT: Intubated orally. NO nasal drainage NECK: Trachea midline. Supple, nontender, no meningeal signs. CARDIOVASCULAR: HS audible. RESPIRATORY: Clear to auscultation. Breath sounds equal bilaterally but decreased in the bases. GASTROINTESTINAL: Abdomen soft, Ostomy bag with dark green liquid stool. BRANDEN drain x 2, left drain with greyish drainage. Midline sutures now with open area, packed with wet to dry dressing in place. Rest of sutures in place, has a very small amount of purulence in upper incision MUSCULOSKELETAL: Extremities without clubbing, cyanosis. Pedal and hand edema noted. NEUROLOGICAL: Eyes open, not following Psych could not be assessed IV line sites with no e.o infection. Has RIJ TLC and LSC vascath Assessment & Plan Remarks Severe Sepsis with Shock, BP better Secondary peritonitis due to small bowel perforation s/p Enterotomy and washout , has an end ileostomy Abdominal wound infection S/P robotic splenic flexure takedown on 09/07/17 S/P cystoscopy with bilateral ureteroscopies on 09/07/2017 Thrombocytopenia: sepsis, DIC - seems to have plateaud Acute renal failure: prerenal, sepsis. - on HD Recs: Continue Cefepime IV Change Micafungin IV to Diflucan Continue Flagyl IV for anaerobic coverage. Follow cultures ?HD again today Monitor progress Jaycee Doyle MD Sep 19, 2017 09:16
--- NOTE | 2017-09-19 10:06 | HHI.CCPN ---
Subjective Remarks/Hospital Course 67-year-old very pleasant gentleman initially admitted for same day surgery for polyp removal. Due to some complications in the OR he required a colonoscopy during the surgery and now he is postop day 4 status post robotic ascending colectomy. He also required bilateral ureteral catheter placement by urology. Postoperatively he was given Toradol, received 12 doses. He is now on IVF, urine output is very low and he has cola colored urine. He continues to be profoundly acidotic and the x-ray today shows pneumoperitoneum that is new compared to previous images. The patient's surgeon Dr. Mcclellan is at the bedside and she is taking him immediately to operating room for a revision. The patient during my exam is not in distress. 09/12: Remains very critical in septic shock. CVVH started yesterday. Remains on Levophed, dontrell-synephrine and and vasopressin plus stress dose steroids. s/p Small bowel enterotomy with leakage of small bowel contents, s/p diverting ileostomy. WBC up to 19.5, platelet count 64 today 09/13: Continues to be intubated remains critical but slight improvement in hemodynamics. Levophed is down to 12 mcg/m remains on vasopressin. Dontrell- Synephrine was restarted overnight currently at 60 mcg/m but will wean to DC. Platelet count further down now 45 most likely from sepsis and consumption. Check hit screen. CVVH filter clot transitioning to hemodialysis today. Appreciate ID consult. WBC count is up to 25.2 today Subjective 09/14: Afebrile. Currently only on vasopressin to maintain mean arterial pressure greater than equal to 65. Norepinephrine is been discontinued along with Dontrell-Synephrine. Platelets currently 31. LDH, haptoglobin and peripheral smear pending. No bleeding apparent. 09/15: May need to replace HD catheter, flow sluggish. Tapering vasopressors but platelets remain low. 09/16. Platelet count 56,[address] new hemodialysis catheter. Unfortunately there are no access it is available in the neck. Examination of the groins reveals that the areas are much too contaminated to allow for line placement. The only sites available are subclavian approach. I have discussed this with Dr. Breen and he agrees to proceed with subclavian placement. This should not be a situation requiring long-term hemodialysis. MAURICE panel negative. 09/17: Remains intubated sedated, new hemodialysis catheter placed today. Plan for hemodialysis today. WBC count 11.9 to 18.4 today, but patient remains on stress dose steroids. Start weaning hydrocortisone. Urine output remains minimal. Platelet count improving 66 today 09/18: Remains critical remains hemodynamically stable but increasing brownish thick output from the bilateral BRANDEN drains. Midline incision with some eschar formation Dr. Mcclellan made aware. CT of the abdomen pelvis stat to rule out abscess/fluid collections. CBC and CMP are pending today 09/19: Remains intubated off sedation patient able to follow commands but significant muscular weakness especially lower extremities. Off pressors. He remains oliguric to anuric. CT abdomen pelvis did not show any drainable fluid collections. CBC starting to trend down 16.6 to 13.8. Will discontinue stress dose steroids today Objective Vital Signs Date Time Temp Pulse Resp B/P (MAP) Pulse Ox O2 Delivery O2 Flow Rate FiO2 09/19/17 08:30 94 45 09/19/17 06:00 57 09/19/17 04:00 98.1 16 123/45 (71) Intake and Output 09/19/17 09/19/17 09/20/17 08:00 16:00 00:00 Intake Total 185 ml Output Total 560 ml Balance -375 ml Result Diagram: 09/19/17 0450 09/19/17 0450 Other Results Microbiology Date/Time Source Procedure Growth Status 09/17/17 14:50 Fluid Other Gram Stain - Final Complete 09/17/17 14:50 Body Fluid Culture - Final Enterobacter Cloacae Complete Laboratory Tests Test 09/19/17 08:50 Blood Gas Puncture Site DUDLYE Blood Gas Patient Temperature 98.6 Blood Gas HCO3 24 mmol/L (22-26) Blood Gas Base Excess -0.3 mmol/L (-2-2) Blood Gas Oxygen Saturation 93 % (90-100) Arterial Blood pH 7.42 (7.380-7.420) Arterial Blood Partial Pressure CO2 37 mmHg (38-42) Arterial Blood Partial Pressure O2 82 mmHg (61-120) Arterial Blood Oxygen Content 13.2 Vol % (12.0-20.0) Arterial Blood Carboxyhemoglobin 0.9 % (0-4) Arterial Blood Methemoglobin 1.3 % (0-2) Blood Gas Hemoglobin 10.1 G/DL (12.0-16.0) Oxygen Delivery Device VENTILATOR Blood Gas Ventilator Setting CPAP PSV 5 PEEP5 Blood Gas Inspired Oxygen 45 % Imaging Last Impressions Chest X-Ray 09/14/17 0600 Signed Impressions: Service Date/Time: Thursday, September 14, 2017 03:40 - CONCLUSION: No significant interval change. Persistent left lower lobe atelectasis versus consolidation and mild hazy bilateral lung opacity. Valeriy Gagnon MD Abdomen X-Ray 09/13/17 0000 Signed Impressions: Service Date/Time: September 10:52 - CONCLUSION: Gastric tube tip and side-port project over the stomach. Andrés Gardner MD Renal Ultrasound 09/10/17 0000 Signed Impressions: Service Date/Time: Sunday, September 10, 2017 15:17 - CONCLUSION: No evidence of mass or hydronephrosis. Andrés Gardner MD Objective Remarks GENERAL: 67-year-old male currently orotracheally intubated, now off sedation SKIN: Warm and dry. See GI exam for abdominal incision HEAD: Normocephalic. EYES: MARIO. EOMI. ENT: Orotracheally intubated. . NECK: Supple, trachea midline. Right IJ cordis with dual-lumen catheter is clean dry and intact. Left subclavian hemodialysis catheter in place, CDI CARDIOVASCULAR: Regular rate and rhythm without murmurs, gallops, or rubs. No JVD. Remains on amiodarone infusion-DC today RESPIRATORY: Breath sounds equal bilaterally. Currently on PSV 5/5. Decreased breath sounds in the bases. GASTROINTESTINAL: Abdominal binder in place, some what tense. ileostomy pink, bilateral BRANDEN drains with light brown thick secretions. Midline incision with some eschar formation MUSCULOSKELETAL: With 1+ bilateral lower extremity edema NEURO EXAM: Awake alert on the ventilator, following commands on sedation hold. Muscle power 4/5 UE 3/5 LE . Opens eyes and tracks. Line: Central Venous Catheter Side: Left Location: Internal, Jugular A/P Assessment and Plan Neuro: Toxic metabolic encephalopathy CIM Patient is currently off all sedation. Moderate neuromuscular weakness persists Need PT/OT daily Use propofol and fentanyl for sedation and ventilator synchrony Mild encephalopathy improving Resp Acute hypoxemic respiratory failure HCAP ACV 16/500/8/50, Ventilator bundle Albuterol/ipratropium aerosols every 6 hours with albuterol aerosols every 2. hours as needed dyspnea Daily CPAP trials, tolerating well but not ready for extubation, generalized weakness persists Follow-up chest x-ray in a.m. continue fluid removal with hemodialysis CVS: Severe septic shock-resolved Lactic acidosis Fluid overload A fib with RVR, now NSR Coronary disease status post stent times 07/2015 History of hypertension History of dyslipidemia -s/p Aggressively fluid resuscitated, now getting fluid removed by hemodialysis totals approximately 7 L removed in last 48 hours -Currently off all pressors -Holding all home antihypertensives (metoprolol succinate 25 mg daily and amlodipine 5 mg by mouth daily, and losartan 100 mg by mouth daily -Holding aspirin 81 mg by mouth daily with low platelet -DCd Amiodarone drip at 0.5 mcg/min, started Coreg 3.125 mg bid on 09/18/17. Cannot anticoagulate due to recent surgery and thrombocytopenia. Subcu heparin start today -2D echocardiogram 09/13 - left ventricular systolic function normal with an estimated ejection fraction in the range of 50-55%. No definite regional wall motion abnormalities. There is mild tricuspid regurgitation. PASP 44 mmHg. -On hydrocortisone sodium 50 q8 -DC Today Renal//FEN Acute kidney failure Hyponatremia -Most likely secondary to ATN/septic shock -Nephrology Dr. Zhu following, CVVH started 09/11/17, transition to IHD 09/13 -3.5 L with hemodialysis 09/17, 09/18, possible IHD again today. -Left subclavian Vas-Cath paced 09/16/17 GI/ID Small bowel enterotomy with leakage of small bowel contents, status post ex lap s/p diverting ileostomy POD 7 Peritonitis with septic shock -Status post ascending colectomy 09/07 pod 11 -Status post ex lap irrigation and diverting ileostomy for small bowel perforation pod 8 -Increasing brown thick output from BRANDEN drains, stat CT abdomen pelvis to rule out abscess formation -Continue Continue Cefepime IV, Micafungin IV change to Diflucan by ID, Continue Flagyl IV for anaerobic coverage. -Post op Management per Dr. Mcclellan general surgery -Blood cx 09/13 Enterobacter pansensitive, fluid culture 09/17 Enterobacter pansensitive HEME: Leukocytosis Normocytic anemia Thrombocytopenia-improving -Monitor CBC, coags -Thrombocytopenia secondary to sepsis, DIC -f/u LDH, haptoglobin and peripheral smear -Hematology following -Resume sq Heparin, HIT screen negative panel -Platelet count 90,000, will resume sq heparin ENDO: Hyperglycemia History of gout Hypothyroidism Sliding scale insulin with NovoLog to maintain euglycemia/low regimen every 6 hours Holding allopurinol 100 mg by mouth daily for gout/home medication Levothyroxine 50 mcg by tube daily. IV levothyroxine limited to myxedema coma only at [place] due to nationwide shortage DVT GI prophylaxis -Luis M's and SCDs -Subcu heparin-resume today -Famotidine Overall impression: Critically ill with persistent sepsis and respiratory failure. Acute kidney injury with requiring hemodialysis. Prognosis guarded, but some improvement. Sepsis persists but improving Critical care time 35 minutes aside from procedures. Eileen Bautista MD Sep 19, 2017 10:06
[2017-09-19] MEDS: FLUCONAZOLE 200 MG PREMIX BAG 100 ML IV SCH (10:49)
[2017-09-19] MEDS: LABETALOL HCL 100 MG/20 ML VIAL IV PUSH PRN (11:06)
--- NOTE | 2017-09-19 11:24 | HHI.NPPN ---
Subjective Renal Failure: Acute Interval History at bedside. He is awake, off sedation, on CPAP trial at 45% FiO2. Potential extubation today. He remains oligoanuric. 3.5L UF yesterday with HD. He has some edema. Not in pain. (Helena Malave) Review of Systems General General Remarks unable to evaluate (Helena Malave) Objective Data Data Vital Signs Date Time Temp Pulse Resp B/P (MAP) Pulse Ox O2 Delivery O2 Flow Rate FiO2 09/19/17 08:30 94 45 09/19/17 07:20 95 45 09/19/17 07:20 45 09/19/17 06:00 57 09/19/17 04:00 56 09/19/17 04:00 98.1 55 16 123/45 (71) 95 09/19/17 04:00 45 09/19/17 03:07 94 45 09/19/17 02:00 55 09/19/17 00:00 61 09/19/17 00:00 98.0 68 16 158/59 (92) 95 09/19/17 00:00 45 09/18/17 23:27 95 45 09/18/17 20:09 92 45 09/18/17 20:00 68 09/18/17 20:00 97.7 68 16 128/49 (75) 96 09/18/17 20:00 45 09/18/17 18:00 71 09/18/17 16:00 70 16 188/76 (113) 99 09/18/17 16:00 67 09/18/17 16:00 45 09/18/17 15:44 100 100 09/18/17 14:00 74 09/18/17 12:19 68 158/60 09/18/17 12:00 67 09/18/17 12:00 45 09/18/17 12:00 98.6 68 16 155/60 (91) 96 09/18/17 11:23 96 45 (Helena Malave) -: 09/19/17 0450 09/19/17 0450 Imaging Last 72 hours Impressions Chest X-Ray 09/19/17 0600 Signed Impressions: Service Date/Time: Tuesday, September 19, 2017 04:53 - CONCLUSION: Slightly improving bibasilar densities. Lazarus Penaloza MD Abdomen/Pelvis CT 09/18/17 0000 Signed Impressions: Service Date/Time: Monday, September 18, 2017 15:55 - CONCLUSION: 1. No evidence of intra-abdominal abscess. 2. Small bilateral pleural effusions with adjacent alveolar consolidations consistent with compressive atelectasis or pneumonia. Clinical correlation is recommended. 3. Cholelithiasis. 4. 8.5 cm right renal cyst. 5. Degenerative changes and scoliosis of the thoraco-lumbar spine. 6. 2 low-density lesions within the liver measuring 1.8 cm in the right dome and 1.2 cm in the inferior right lobe which are indeterminate on this unenhanced examination. 7. Cardiomegaly and coronary artery calcification noted. Edwin Marie MD Tubes & Lines: Perma-Cath, Canela Tubes & Lines Comment TLC right IJ VC left IJ A line ileostomy RLQ BRANDEN drains x 2 abd Drip Comment off all gtts (Helena Malave) Physical Exam General Appearance: Well Developed, Comfortable Appearance Remarks intubated, sedated, eyes closed (Helena Malave) Throat Throat Exam: Oral Mucosa Sylvia & Moist (Helena Malave) Neck Neck Exam: Neck Supple (Helena Malave) Pulmonary Resp Exam: Breath Sounds Equal, No Distress, Decreased Bases Resp Remarks vented lung sounds (Helena Malave) Cardiology CV Exam: Regular, Normal Sinus Rhythm (Helena Malave) Gastrointestinal/Abdomen GI Exam: Soft, Positive Bowel Movement, Distended, Bowel Sounds Hypoactive GI Remarks abd binder in place, BRANDEN drain in place x2 ileostomy, stoma is pink, has small output (Helena Malave) Genitourinary Remarks oliguric, urine is dark (Helena Malave) Musculoskeletal MS Exam: Joints Intact, Good Strength, Unable to Ambulate (Helena Malave) Integumentary Skin Exam: Warm, Dry, Intact Skin Remarks midabdominal incision (Helena Malave) Extremeties Extremities Exam: Pedal Pulses Palpable, Moderate Edema (Helena Malave) Neurologic Neuro Exam: Unresponsive, Sedated (Helena Malave) Psychiatric Psych Exam: Appropriate Responses (Helena Malave) VTE Prophylaxis Device: SCDs (Helena Malave) Assessment/Plan Discussed Condition With: Spouse Assessment Summary: JOSEF/Acute Renal Failure, Acute Tubular Necrosis, Hypotension Electrolyte Assessment: Hypocalcemia Problem List: (1) JOSEF (acute kidney injury) ICD Codes: N17.9 - Acute kidney failure, unspecified Plan: His renal function is normal at baseline JOSEF due to ATN, oligoanuric On CRRT from 09/11-09/12. Has been on daily HD since 09/13. He has had 7 treatments with 21 Liters fluid removal HD again today primarily for fluid removal Repeat labs tomorrow, HD if needed Follow urine output, currently oligoanuric. We will dialyze later today. Avoid nephrotoxic agents. Avoid IVF. On calcium acetate TID, monitor phosphorus level. (2) S/P partial colectomy ICD Codes: Z90.49 - Acquired absence of other specified parts of digestive tract Plan: He developed small bowel perforation after robotic surgery, s/p emergent ex lap with I&D 09/11 Management per surgery , has ileostomy that is draining Tube feeding on hold for extubation. Prognosis is guarded. (3) Sepsis ICD Codes: A41.9 - Sepsis, unspecified organism Plan: Antibiotics include cefepime, Flagyl, and micafungin monitor drug levels when appropriate ID is following (4) Hypocalcemia ICD Codes: E83.51 - Hypocalcemia Plan: On liquid vitamin D for deficiency (Helena Malave) Plan patient was seen and examined. Agree with above assessment and plan. (Nish Zhu MD) Helena Malave Sep 19, 2017 11:24 Nish Zhu MD Sep 19, 2017 21:48
--- NOTE | 2017-09-19 12:53 | HHI.PR ---
Subjective Remarks POD#12 s/p robotic ascending colectomy/POD#8 exploratory lap with diverting ileostomy Intubated, sedated, responding Objective Vital Signs Date Time Temp Pulse Resp B/P (MAP) Pulse Ox O2 Delivery O2 Flow Rate FiO2 09/19/17 12:00 55 09/19/17 12:00 64 09/19/17 11:39 92 55 09/19/17 10:00 86 09/19/17 08:30 94 45 09/19/17 08:00 45 09/19/17 08:00 80 09/19/17 07:20 95 45 09/19/17 07:20 45 09/19/17 06:00 57 09/19/17 04:00 56 09/19/17 04:00 98.1 55 16 123/45 (71) 95 09/19/17 04:00 45 09/19/17 03:07 94 45 09/19/17 02:00 55 09/19/17 00:00 61 09/19/17 00:00 98.0 68 16 158/59 (92) 95 09/19/17 00:00 45 09/18/17 23:27 95 45 09/18/17 20:09 92 45 09/18/17 20:00 68 09/18/17 20:00 97.7 68 16 128/49 (75) 96 09/18/17 20:00 45 09/18/17 18:00 71 09/18/17 16:00 70 16 188/76 (113) 99 09/18/17 16:00 67 09/18/17 16:00 45 09/18/17 15:44 100 100 09/18/17 14:00 74 I/O 09/18/17 09/18/17 09/18/17 09/19/17 09/19/17 09/19/17 07:00 15:00 23:00 07:00 15:00 23:00 Intake Total 300 ml 185 ml Output Total 285 ml 3740 ml 560 ml Balance -285 ml -3440 ml -375 ml IV Total 300 ml 100 ml Tube Feeding 65 ml Other 20 ml Output Urine Total 35 ml 30 ml 50 ml Stool Total 125 ml 150 ml 400 ml Gastric Drainage Total 25 ml 80 ml Drainage Total 100 ml 60 ml 30 ml Hemodialysis 3500 ml Result Diagram: 09/19/1744909/19/17 0450 Objective Remarks Abdomen soft, distended, ileostomy pink, watery output wound slight eschar (2-4 mm) to right of midpoint, healthy skin underneath clean, repacked BRANDEN - brownish aguilar, thick right BRANDEN removed Assessment and Plan Assessment and Plan transverse colon polyp/sb enterotomy NEURO - sedated, but responsive CV - off pressors, NS rhythm, PULM - stable on vent, tolerating CPAP GI - will try feedings again today slowly FEN - ? next HD ID - on Flagyl/Zosyn/ceftaroline/micafungin/vanco, CT Scan without free fluid Heme - stable, platelets increasing Condition improving Ivory Mcclellan MD Sep 19, 2017 12:53
--- NOTE | 2017-09-19 13:11 | PD.WCN.NOT ---
Wound Consult Description: New ostomy teaching ordered by Communicated with: Patient family at bedside Recommendation: Monitor ileostomy color and output Q4H Additional Information: Patient seen on [facility] for ostomy assessment, teaching, and pouching system change. Ostomy Type: Ileostomy Surgeon: Ivory Mcclellan MD Date of Surgery: Sep 11, 2017 Additional information Patient seen on [address] [facility] with patient family member at bedside during assessment and teaching with pouching system changed. Binder was loosened for visualization of stoma. Right side ileostomy measures 7/8" x 1"2, therefore a 1 1/4" wafer and pouch was used for appliance change today. Stoma is red, moist, oval, functioning with dark green liquid effluent from lumen @ 12 o'clock. Pouch was emptied by movie writer prior to removing pouching system with adhesive remover wipes. Mucocutaneous junction is noted with sutures other evans unremarkable. Peristomal skin has minimal bleeding noted circumferentially with partial thickness skin loss that was cleansed with NS and gauze, dusted with stoma powder, and skin prepped using Cavilon barrier film spray. This "encrusting" technique was allowed to air dry prior to placing new wafer. Pouch was then attached to flange on wafer and closed at the bottom. Binder was returned to its original position prior to leaving patient room. Marie Schroeder [facility] Sep 19, 2017 13:11
[2017-09-19] MEDS: HEPARIN SODIUM - IV 10,000 UNITS/10 ML VIAL PRN (13:26)
[2017-09-19] MEDS: GENTAMICIN SULFATE 20 MG/2 ML VIAL OTHER PRN (13:27)
[2017-09-19] MEDS: ALBUMIN 25% INJ 100 ML IV PRN (14:11)
[2017-09-19] MEDS: HEPARIN SODIUM - SQ 10,000 UNITS/ML VIAL SQ SCH (15:00)
[2017-09-19] MEDS: SODIUM CHLORIDE 0.9% FLUSH 10 ML FLUSH IV FLUSH PRN (19:57)
[2017-09-19] MEDS: CEFEPIME 1000 MG/NS 100 ML IV SCH ×2 (19:58)
[2017-09-20] VITALS (20 sets, daily range): BP systolic 139–196; BP diastolic 54–78; PULSE 69–104; RESP 16–22; TEMP 98.8–100.9; O2SAT 50–100
[2017-09-20] MEDS: HEPARIN SODIUM - SQ 10,000 UNITS/ML VIAL SQ SCH ×2 (02:44→14:23)
[2017-09-20] MEDS: metroNIDAZOLE 500 MG INJ 100 ML IV SCH ×2 (02:48→11:37)
[2017-09-20] MEDS: RESP: ALBUTEROL 2.5 MG/IPRATROPIUM 0.5 MG NEB (SCH) NEB ×3 (03:20→21:13)
[2017-09-20] MEDS: LEVOTHYROXINE SODIUM 50 MCG TAB PO SCH (04:31)
[2017-09-20] MEDS: METOCLOPRAMIDE HCL 10 MG/2 ML VIAL IV PUSH SCH ×3 (04:31→21:22)
[2017-09-20] MEDS: ARTIFICIAL TEARS OPTH SOLN 15 ML BTL EACH EYE SCH ×2 (04:31→23:06)
[2017-09-20 04:58] LABS: ALBUMIN 2.3 GM/DL (3.4-5.0); BICARBONATE 26.7 MEQ/L (21.0-32.0); CALCIUM 7.8 MG/DL (8.5-10.1); CREATININE 4.47 MG/DL (0.60-1.30); PHOSPHORUS 5.9 MG/DL (2.5-4.9)
[2017-09-20] MEDS ORDERED: CALCIUM CHLORIDE 10% SOLN 1 GRAM/10 ML SYR IV ONE ×2 (05:00→18:15)
[2017-09-20] MEDS ORDERED: EPINEPHrine HCL (1:10,000) 1 MG/10 ML SYRINGE IV ONE (05:00)
[2017-09-20] MEDS ORDERED: SODIUM BICARBONATE 8.4% INJ 50 MEQ/50 ML SYR IV ONE (05:00)
[2017-09-20] MEDS: INSULIN ASPART SUPPLEMENTAL SCALE SQ SCH ×3 (05:15→18:00)
[2017-09-20] MEDS: CHOLECALCIFEROL (VIT D3) LIQ 400 UNITS/ML 50 ML BOTTLE PO SCH (09:00)
--- NOTE | 2017-09-20 09:17 | HHI.PR ---
Subjective Remarks POD#13 s/p robotic ascending colectomy/POD#9 exploratory lap with diverting ileostomy Intubated, alert, responding Objective Vital Signs Date Time Temp Pulse Resp B/P (MAP) Pulse Ox O2 Delivery O2 Flow Rate FiO2 09/20/17 08:07 45 09/20/17 08:07 97 45 09/20/17 08:00 99.5 85 16 175/73 (107) 97 09/20/17 08:00 84 09/20/17 08:00 50 09/20/17 04:00 50 09/20/17 04:00 99.4 69 16 139/54 (82) 96 09/20/17 03:21 97 50 09/20/17 00:13 96 50 09/20/17 00:00 98.8 69 19 167/62 (97) 97 09/20/17 00:00 50 09/19/17 20:00 50 09/19/17 20:00 98.8 72 17 157/60 (92) 96 09/19/17 19:27 96 50 09/19/17 18:00 74 09/19/17 16:00 98.9 72 20 156/64 (94) 95 09/19/17 16:00 80 09/19/17 16:00 55 09/19/17 14:11 95 55 09/19/17 14:00 75 09/19/17 13:00 78 09/19/17 12:00 98.9 66 26 180/70 (106) 92 09/19/17 12:00 55 09/19/17 12:00 64 09/19/17 11:39 92 55 09/19/17 10:00 86 I/O 09/19/17 09/19/17 09/19/17 09/20/17 09/20/17 09/20/17 07:00 15:00 23:00 07:00 15:00 23:00 Intake Total 185 ml 200 ml 70 ml 210 ml Output Total 560 ml 4665 ml 320 ml Balance -375 ml 200 ml -4595 ml -110 ml Intake Oral 0 ml IV Total 100 ml 200 ml 50 ml Tube Feeding 65 ml 20 ml 60 ml Other 20 ml 150 ml Output Urine Total 50 ml 20 ml 100 ml Stool Total 400 ml 125 ml 200 ml Gastric Drainage Total 80 ml Drainage Total 30 ml 20 ml 20 ml Hemodialysis 4500 ml Result Diagram: 09/19/17 0450 09/20/17 0429 Objective Remarks Abdomen soft, mildly distended, ileostomy pink, output thicker wound slight eschar (2-4 mm) to right of midpoint, healthy skin underneath clean, repacked BRANDEN - brownish aguilar, thick Assessment and Plan Assessment and Plan transverse colon polyp/sb enterotomy NEURO - responsive CV - off pressors, NS rhythm, PULM - hope for extubation today GI - feedings tolerated, held for extubation FEN - HD now - slightly more urine ID - on Flagyl/Zosyn/ceftaroline/micafungin/vanco, Heme - Hgb trending down, recheck, may need unit PRBC Condition improving Ivory Mcclellan MD Sep 20, 2017 09:17
--- NOTE | 2017-09-20 09:45 | PD.WCN.NOT ---
Wound Consult Description: New ostomy teaching ordered by Communicated with: ANDREZ Malik Recommendation: Monitor ileostomy color and output Q4H Additional Information: Patient seen this morning @0840 for ostomy assessment. Ostomy Type: Ileostomy Surgeon: Ivory Mcclellan MD Date of Surgery: Sep 11, 2017 Educated patient on: Patient awake and nodding head during teaching, appears to understand however cannot verbally communicate due to ET tube. Additional information Patient seen this morning @0840 for ostomy assessment. Binder was lifted to visualize ileostomy on right side abdomen after introducing self to patient and plan for assessment of stoma. Stoma is red, round, moist, moderately protruding, functioning from lumen noted @12o'clock with dark green liquid effluent noted in pouch that was not emptied at this time. Pouching system is intact and noted without leaks. Marie Schroeder [facility] Sep 20, 2017 09:45
--- NOTE | 2017-09-20 11:02 | HHI.CCPN ---
Subjective Remarks/Hospital Course 67-year-old very pleasant gentleman initially admitted for same day surgery for polyp removal. Due to some complications in the OR he required a colonoscopy during the surgery and now he is postop day 4 status post robotic ascending colectomy. He also required bilateral ureteral catheter placement by urology. Postoperatively he was given Toradol, received 12 doses. He is now on IVF, urine output is very low and he has cola colored urine. He continues to be profoundly acidotic and the x-ray today shows pneumoperitoneum that is new compared to previous images. The patient's surgeon Dr. Mcclellan is at the bedside and she is taking him immediately to operating room for a revision. The patient during my exam is not in distress. 09/12: Remains very critical in septic shock. CVVH started yesterday. Remains on Levophed, dontrell-synephrine and and vasopressin plus stress dose steroids. s/p Small bowel enterotomy with leakage of small bowel contents, s/p diverting ileostomy. WBC up to 19.5, platelet count 64 today 09/13: Continues to be intubated remains critical but slight improvement in hemodynamics. Levophed is down to 12 mcg/m remains on vasopressin. Dontrell- Synephrine was restarted overnight currently at 60 mcg/m but will wean to DC. Platelet count further down now 45 most likely from sepsis and consumption. Check hit screen. CVVH filter clot transitioning to hemodialysis today. Appreciate ID consult. WBC count is up to 25.2 today Subjective 09/14: Afebrile. Currently only on vasopressin to maintain mean arterial pressure greater than equal to 65. Norepinephrine is been discontinued along with Dontrell-Synephrine. Platelets currently 31. LDH, haptoglobin and peripheral smear pending. No bleeding apparent. 09/15: May need to replace HD catheter, flow sluggish. Tapering vasopressors but platelets remain low. 09/16. Platelet count 56,[address] new hemodialysis catheter. Unfortunately there are no access it is available in the neck. Examination of the groins reveals that the areas are much too contaminated to allow for line placement. The only sites available are subclavian approach. I have discussed this with Dr. Breen and he agrees to proceed with subclavian placement. This should not be a situation requiring long-term hemodialysis. MAURICE panel negative. 09/17: Remains intubated sedated, new hemodialysis catheter placed today. Plan for hemodialysis today. WBC count 11.9 to 18.4 today, but patient remains on stress dose steroids. Start weaning hydrocortisone. Urine output remains minimal. Platelet count improving 66 today 09/18: Remains critical remains hemodynamically stable but increasing brownish thick output from the bilateral BRANDEN drains. Midline incision with some eschar formation Dr. Mcclellan made aware. CT of the abdomen pelvis stat to rule out abscess/fluid collections. CBC and CMP are pending today 09/19: Remains intubated off sedation patient able to follow commands but significant muscular weakness especially lower extremities. Off pressors. He remains oliguric to anuric. CT abdomen pelvis did not show any drainable fluid collections. CBC starting to trend down 16.6 to 13.8. Will discontinue stress dose steroids today 09/20: Wakes up easily on low dose propofol. Plan for HD with fluid removal today. Hemodynamically stable. Urine output 120 mL in 24 hours. Hb 7.6 yesterday, will repeat am. no transfusion at this time. Possible extubation today after hemodialysis Objective Vital Signs Date Time Temp Pulse Resp B/P (MAP) Pulse Ox O2 Delivery O2 Flow Rate FiO2 09/20/17 10:00 104 09/20/17 08:07 45 09/20/17 08:07 97 09/20/17 08:00 99.5 16 175/73 (107) Intake and Output 09/20/17 09/20/17 09/21/17 08:00 16:00 00:00 Intake Total 210 ml Output Total 320 ml Balance -110 ml Result Diagram: 09/19/17 0450 09/20/17 0429 Other Results Microbiology Date/Time Source Procedure Growth Status 09/17/17 14:50 Fluid Other Gram Stain - Final Complete 09/17/17 14:50 Body Fluid Culture - Final Enterobacter Cloacae Complete Imaging Last Impressions Chest X-Ray 09/14/17 0600 Signed Impressions: Service Date/Time: Thursday, September 14, 2017 03:40 - CONCLUSION: No significant interval change. Persistent left lower lobe atelectasis versus consolidation and mild hazy bilateral lung opacity. Valeriy Gagnon MD Abdomen X-Ray 09/13/17 0000 Signed Impressions: Service Date/Time: September 10:52 - CONCLUSION: Gastric tube tip and side-port project over the stomach. Andrés Gardner MD Renal Ultrasound 09/10/17 0000 Signed Impressions: Service Date/Time: Sunday, September 10, 2017 15:17 - CONCLUSION: No evidence of mass or hydronephrosis. Andrés Gardner MD Objective Remarks GENERAL: 67-year-old male currently orotracheally intubated, now off sedation SKIN: Warm and dry. See GI exam for abdominal incision HEAD: Normocephalic. EYES: MARIO. EOMI. ENT: Orotracheally intubated. . NECK: Supple, trachea midline. Right IJ cordis with dual-lumen catheter is clean dry and intact. Left subclavian hemodialysis catheter in place, CDI CARDIOVASCULAR: Regular rate and rhythm without murmurs, gallops, or rubs. No JVD. RESPIRATORY: Breath sounds equal bilaterally. Currently on PSV 5/5. Decreased breath sounds in the bases. GASTROINTESTINAL: Abdominal binder in place. Ileostomy pink, bilateral BRANDEN drains with light brown thick secretions. Midline incision with some eschar formation MUSCULOSKELETAL: With 1+ bilateral lower extremity edema NEURO EXAM: Awake alert on the ventilator, following commands on sedation hold. Muscle power 4/5 UE 3/5 LE . Opens eyes and tracks. Line: Central Venous Catheter Side: Left Location: Internal, Jugular A/P Assessment and Plan Neuro: Toxic metabolic encephalopathy CIM Off all sedation. Moderate neuromuscular weakness persists PT/OT daily Use propofol and fentanyl for sedation and ventilator synchrony Encephalopathy improving Resp Acute hypoxemic respiratory failure HCAP ACV 16/500/8/50, Ventilator bundle. Albuterol/ipratropium aerosols every 6 hours with albuterol aerosols every 2. hours as needed dyspnea Daily CPAP trials. Possible extubation after HD and fluid removal Follow-up chest x-ray in a.m. Continue fluid removal with hemodialysis CVS: Severe septic shock-resolved Lactic acidosis Fluid overload A fib with RVR, now NSR Coronary disease status post stent times 07/2015 History of hypertension History of dyslipidemia -s/p Aggressively fluid resuscitated, now getting fluid removed by hemodialysis approximately 7-8 L removed in last 48 hours -Currently off all pressors. Holding all home antihypertensives (metoprolol succinate 25 mg daily and amlodipine 5 mg by mouth daily, and losartan 100 mg by mouth daily -Holding aspirin 81 mg by mouth daily with low platelet, Resume once consistently >90 -DCd Amiodarone drip at 0.5 mcg/min, started Coreg 3.125 mg bid on 09/18/17. Cannot anticoagulate due to recent surgery and thrombocytopenia. Subcu heparin start 09/19 -2D echocardiogram 09/13 - left ventricular systolic function normal with an estimated ejection fraction in the range of 50-55%. No definite regional wall motion abnormalities. There is mild tricuspid regurgitation. PASP 44 mmHg. -On hydrocortisone sodium 50 q8 -DCd 09/19 Renal//FEN Acute kidney failure Hyponatremia -Most likely secondary to ATN/septic shock -Nephrology Dr. Zhu following, CVVH started 09/11/17, transitioned to IHD 09/13 ->10 L removed with hemodialysis 09/17, 09/18,09/19. HD again today. -Left subclavian Vas-Cath paced 09/16/17 GI/ID Small bowel enterotomy with leakage of small bowel contents, status post ex lap s/p diverting ileostomy POD 7 Peritonitis with septic shock -Status post ascending colectomy 09/07 pod 12 -Status post ex lap irrigation and diverting ileostomy for small bowel perforation pod 9 -CT abdomen pelvis to rule out abscess formation-negative for fluid collection -Continue Continue Cefepime IV, Diflucan, Flagyl IV per ID -Post op Management per Dr. Mcclellan general surgery -Blood cx 09/13 Enterobacter pansensitive, fluid culture 09/17 Enterobacter pansensitive HEME: Leukocytosis Normocytic anemia Thrombocytopenia-improving -Monitor CBC, coags -Thrombocytopenia secondary to sepsis, DIC -f/u LDH, haptoglobin and peripheral smear -Hematology following -Resumed sq Heparin, 09/20, HIT screen negative panel ENDO: Hyperglycemia History of gout Hypothyroidism Sliding scale insulin with NovoLog to maintain euglycemia/low regimen every 6 hours Holding allopurinol 100 mg by mouth daily for gout/home medication Levothyroxine 50 mcg by tube daily. IV levothyroxine limited to myxedema coma only at [place] due to nationwide shortage DVT GI prophylaxis -Luis M's and SCDs -Subcu heparin-resumed 09/20 -Famotidine Overall impression: Critically ill with persistent sepsis and respiratory failure. Acute kidney injury with requiring hemodialysis. Prognosis guarded, but some improvement. Sepsis persists but improving Level 3 Eileen Bautista MD Sep 20, 2017 11:02
[2017-09-20] MEDS: GENTAMICIN SULFATE 20 MG/2 ML VIAL OTHER PRN (11:07)
[2017-09-20] MEDS: CARVEDILOL 3.125 MG TAB PO SCH ×2 (11:37→21:21)
[2017-09-20] MEDS: FLUCONAZOLE 200 MG PREMIX BAG 100 ML IV SCH (11:37)
--- NOTE | 2017-09-20 11:44 | HHI.NPPN ---
Subjective General Problems: Anemia, Edema Renal Failure: Acute Interval History 4.5L UF yesterday with HD. He is on 45% FiO2. Still needs fluid removal to assist with extubation. Seen during bedside dialysis. He is oliguric, septic, low grade fevers noted recently. Awake on the vent. (Helena Malave) Review of Systems General General Remarks unable to evaluate (Helena Malave) Objective Data Data 09/20/17 09/21/17 19:00 07:00 Output Total 5000 ml Balance -5000 ml Hemodialysis 5000 ml Vital Signs Date Time Temp Pulse Resp B/P (MAP) Pulse Ox O2 Delivery O2 Flow Rate FiO2 09/20/17 10:00 104 09/20/17 08:07 45 09/20/17 08:07 97 45 09/20/17 08:00 99.5 85 16 175/73 (107) 97 09/20/17 08:00 84 09/20/17 08:00 50 09/20/17 04:00 50 09/20/17 04:00 99.4 69 16 139/54 (82) 96 09/20/17 03:21 97 50 09/20/17 00:13 96 50 09/20/17 00:00 98.8 69 19 167/62 (97) 97 09/20/17 00:00 50 09/19/17 20:00 50 09/19/17 20:00 98.8 72 17 157/60 (92) 96 09/19/17 19:27 96 50 09/19/17 18:00 74 09/19/17 16:00 98.9 72 20 156/64 (94) 95 09/19/17 16:00 80 09/19/17 16:00 55 09/19/17 14:11 95 55 09/19/17 14:00 75 09/19/17 13:00 78 09/19/17 12:00 98.9 66 26 180/70 (106) 92 09/19/17 12:00 55 09/19/17 12:00 64 09/19/17 11:39 92 55 (Helena Malave) -: 09/19/17 0450 09/20/17 0429 Imaging Last Impressions Chest X-Ray 09/19/17 0600 Signed Impressions: Service Date/Time: Tuesday, September 19, 2017 04:53 - CONCLUSION: Slightly improving bibasilar densities. Lazarus Penaloza MD Abdomen/Pelvis CT 09/18/17 0000 Signed Impressions: Service Date/Time: Monday, September 18, 2017 15:55 - CONCLUSION: 1. No evidence of intra-abdominal abscess. 2. Small bilateral pleural effusions with adjacent alveolar consolidations consistent with compressive atelectasis or pneumonia. Clinical correlation is recommended. 3. Cholelithiasis. 4. 8.5 cm right renal cyst. 5. Degenerative changes and scoliosis of the thoraco-lumbar spine. 6. 2 low-density lesions within the liver measuring 1.8 cm in the right dome and 1.2 cm in the inferior right lobe which are indeterminate on this unenhanced examination. 7. Cardiomegaly and coronary artery calcification noted. Edwin Marie MD Liver Ultrasound 09/15/17 0000 Signed Impressions: Service Date/Time: Friday, September 15, 2017 07:34 - CONCLUSION: The liver appears mildly enlarged and decreased in echogenicity concerning for edema. The gallbladder is distended with sludge. No discrete stones are visualized. There is mild wall thickening of the gallbladder present. The spleen is overall normal in size and grossly normal in echotexture. Small amount of free fluid seen adjacent to the spleen. Vdia Levine MD Abdomen X-Ray 09/13/17 0000 Signed Impressions: Service Date/Time: September 10:52 - CONCLUSION: Gastric tube tip and side-port project over the stomach. Andrés Gardner MD Renal Ultrasound 09/10/17 0000 Signed Impressions: Service Date/Time: Sunday, September 10, 2017 15:17 - CONCLUSION: No evidence of mass or hydronephrosis. Andrés Gardner MD Tubes & Lines: Perma-Cath, Canela Tubes & Lines Comment TLC right IJ VC left IJ A line ileostomy RLQ BRANDEN drains x 2 abd Drip Comment off all gtts (Helena Malave) Physical Exam General Appearance: Well Developed, Comfortable Appearance Remarks intubated via ETT, awake on vent, not in distress (Helena Malave) Throat Throat Exam: Oral Mucosa [place] & Moist (Helena Malave) Neck Neck Exam: Neck Supple (Helena Malave) Pulmonary Resp Exam: Breath Sounds Equal, No Distress, Decreased Bases Resp Remarks vented lung sounds (Helena Malave) Cardiology CV Exam: Regular, Normal Sinus Rhythm (Helena Malave) Gastrointestinal/Abdomen GI Exam: Soft, Positive Bowel Movement, Distended, Bowel Sounds Hypoactive GI Remarks abd binder in place, BRANDEN drain in place x2 ileostomy, stoma is pink, has small output (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) Genitourinary Remarks oliguric, urine is dark (Helena Malave) Musculoskeletal MS Exam: Joints Intact, Good Strength, Unable to Ambulate (Helena Malave) Integumentary Skin Exam: Warm, Dry, Intact Skin Remarks midabdominal incision (Helena Malave) Extremeties Extremities Exam: Pedal Pulses Palpable, Moderate Edema (Helena Malave) Neurologic Neuro Exam: Alert, Awake (Helena Malave) Psychiatric Psych Exam: Appropriate Responses (Helena Malave) VTE Prophylaxis Device: SCDs (Helena Malave) Assessment/Plan Discussed Condition With: Patient Assessment Summary: JOSEF/Acute Renal Failure, Acute Tubular Necrosis, Hypotension Electrolyte Assessment: Hypocalcemia Problem List: (1) JOSEF (acute kidney injury) ICD Codes: N17.9 - Acute kidney failure, unspecified Plan: His renal function is normal at baseline Oliguric renal failure, ATN, secondary to sepsis On CRRT from 09/11-09/12. Has been on daily HD since 09/13. 4.5L UF yesterday Seen during HD today on a 3K, 320 BFR, goal 5L Obtain labs in AM, potentially can convert to every other day HD tomorrow. Follow urine output Monitor fluid status, has had 28 liters removed in past 8 days Avoid nephrotoxic agents. Avoid IVF. On calcium acetate TID, monitor phosphorus level. No longer hypotensive, resume antihypertensive medications (2) S/P partial colectomy ICD Codes: Z90.49 - Acquired absence of other specified parts of digestive tract Plan: He developed small bowel perforation after robotic surgery, s/p emergent ex lap with I&D 4/3 Management per surgery and [facility] has ileostomy that is draining Continue supportive care for sepsis and renal failure Prognosis is guarded. (3) Sepsis ICD Codes: A41.9 - Sepsis, unspecified organism Plan: Due to above Antibiotics changed, include cefepime, fluconazole, and micafungin (off vancomycin, Zosyn, ceftaroline) monitor drug levels when appropriate ID is following (4) Hypocalcemia ICD Codes: E83.51 - Hypocalcemia Plan: On liquid vitamin D for deficiency (Helena Malave) Problem List: (1) JOSEF (acute kidney injury) ICD Codes: N17.9 - Acute kidney failure, unspecified Plan: His renal function is normal at baseline Oliguric renal failure, ATN, secondary to sepsis On CRRT from 09/11-09/12. Has been on daily HD since 09/13. 4.5L UF yesterday Seen during HD today on a 3K, 320 BFR, goal 5L Obtain labs in AM, potentially can convert to every other day HD tomorrow. Follow urine output Monitor fluid status, has had 28 liters removed in past 8 days Avoid nephrotoxic agents. Avoid IVF. On calcium acetate TID, monitor phosphorus level. No longer hypotensive, resume antihypertensive medications (2) S/P partial colectomy ICD Codes: Z90.49 - Acquired absence of other specified parts of digestive tract Plan: He developed small bowel perforation after robotic surgery, s/p emergent ex lap with I&D 4/3 Management per surgery and [facility] has ileostomy that is draining Continue supportive care for sepsis and renal failure Prognosis is guarded. (3) Sepsis ICD Codes: A41.9 - Sepsis, unspecified organism Plan: Due to above Antibiotics changed, include cefepime, fluconazole, and micafungin (off vancomycin, Zosyn, ceftaroline) monitor drug levels when appropriate ID is following (4) Hypocalcemia ICD Codes: E83.51 - Hypocalcemia Plan: On liquid vitamin D for deficiency Plan patient was seen and examined. Agree with above assessment and plan. Discussed with Dr. Bautista. (Nish Zhu MD) Helena Malave Sep 20, 2017 11:44 Nish Zhu MD Sep 20, 2017 20:51
[2017-09-20 12:18] LABS: AUTOMATED NEUTROPHIL # 30.5 TH/MM3 (1.8-7.7); BASOPHIL # 0.1 TH/MM3 (0-0.2); BASOPHIL % 0.3 % (0.0-2.0); EOSINOPHIL # 0.1 TH/MM3 (0-0.4); EOSINOPHIL % 0.2 % (0.0-4.0); HEMATOCRIT 31.3 % (39.0-51.0); HEMOGLOBIN 10.5 GM/DL (13.0-17.0); LYMPH % 2.4 % (9.0-44.0); LYMPHOCYTE # 0.8 TH/MM3 (1.0-4.8); MEAN CELL VOLUME 88.9 FL (80.0-100.0); MEAN CORPUSCULAR HEMOGLOBIN 29.7 PG (27.0-34.0); MEAN CORPUSCULAR HGB CONC 33.4 % (32.0-36.0); MEAN PLATELET VOLUME 10.3 FL (7.0-11.0); MONO % 9.6 % (0.0-8.0); MONOCYTE # 3.4 TH/MM3 (0-0.9); NEUT % 87.5 % (16.0-70.0); PLATELET COUNT 158 TH/MM3 (150-450); RED BLOOD COUNT 3.52 MIL/MM3 (4.50-5.90); RED CELL DISTRIBUTION WIDTH 14.6 % (11.6-17.2); WHITE BLOOD COUNT 34.9 TH/MM3 (4.0-11.0)
[2017-09-20 13:04] LABS: BANDS 5 % (0-6); MONOCYTES 10 % (0-8); MYELOCYTES 1 % (0-0); NEUTROPHIL # MANUAL DIFF 31.1 TH/MM3 (1.8-7.7); POLYS (SEG NEUTROPHILS) 83 % (16-70)
[2017-09-20 13:05] LABS: DOHLE BODIES PRESENT (NONE SEEN); TOXIC GRANULATION 1+ (NORMAL)
[2017-09-20] MEDS: PANTOPRAZOLE SODIUM 40 MG VIAL IVP SCH (14:23)
[2017-09-20] MEDS ORDERED: RESP: RACEPINEPHRINE 2.25% 0.5 ML NEB ONE (15:09)
[2017-09-20] MEDS: LABETALOL HCL 100 MG/20 ML VIAL IV PUSH PRN (15:19)
[2017-09-20] MEDS ORDERED: ETOMIDATE 40 MG/20 ML VIAL ONE (15:29)
[2017-09-20 15:34] LABS: AUTOMATED NEUTROPHIL # 23.9 TH/MM3 (1.8-7.7); BASOPHIL # 0.1 TH/MM3 (0-0.2); BASOPHIL % 0.2 % (0.0-2.0); EOSINOPHIL % 0.1 % (0.0-4.0); HEMATOCRIT 28.5 % (39.0-51.0); HEMOGLOBIN 9.6 GM/DL (13.0-17.0); LYMPH % 1.5 % (9.0-44.0); LYMPHOCYTE # 0.4 TH/MM3 (1.0-4.8); MEAN CELL VOLUME 88.4 FL (80.0-100.0); MEAN CORPUSCULAR HEMOGLOBIN 29.7 PG (27.0-34.0); MEAN CORPUSCULAR HGB CONC 33.6 % (32.0-36.0); MEAN PLATELET VOLUME 10.2 FL (7.0-11.0); MONO % 5.8 % (0.0-8.0); MONOCYTE # 1.5 TH/MM3 (0-0.9); NEUT % 92.4 % (16.0-70.0); PLATELET COUNT 145 TH/MM3 (150-450); RED BLOOD COUNT 3.22 MIL/MM3 (4.50-5.90); RED CELL DISTRIBUTION WIDTH 14.4 % (11.6-17.2); WHITE BLOOD COUNT 25.9 TH/MM3 (4.0-11.0)
[2017-09-20] MEDS ORDERED: EPINEPHrine HCL (1:10,000) 1 MG/10 ML SYRINGE ONE (15:34)
[2017-09-20] MEDS ORDERED: SODIUM BICARBONATE 8.4% INJ 50 MEQ/50 ML SYR ONE (15:35)
[2017-09-20] MEDS ORDERED: CALCIUM CHLORIDE 10% SOLN 1 GRAM/10 ML SYR ONE (15:36)
[2017-09-20] MEDS ORDERED: MIDAZOLAM HCL 5 MG/ML VIAL (1 ML) ONE (15:46)
[2017-09-20] MEDS ORDERED: DOBUTamine PREMIX DRIP 250 ML ONE (15:55)
[2017-09-20] MEDS ORDERED: VASOPRESSIN 20 UNITS/ML VIAL ONE (16:04)
[2017-09-20 16:10] LABS: BASOPHILS 1 % (0-2); LYMPHOCYTES 1 % (9-44); METAMYELOCYTES 2 % (0-1); MONOCYTES 7 % (0-8); NEUTROPHIL # MANUAL DIFF 23.6 TH/MM3 (1.8-7.7); POLYS (SEG NEUTROPHILS) 89 % (16-70)
[2017-09-20 16:11] LABS: DOHLE BODIES PRESENT (NONE SEEN); TOXIC GRANULATION 2+ (NORMAL)
--- NOTE | 2017-09-20 16:27 | RADRPT ---
EXAM DATE/TIME: 09/20/2017 15:42 [facility] COMPARISON: CHEST SINGLE AP, September 19, 2017, 4:53. INDICATIONS : Evaluate intubation MEDICAL HISTORY : Varicocele. Hypertension. Myocardial infarction SURGICAL HISTORY : Coronary artery stent. ENCOUNTER: Subsequent ACUITY: 1 week PAIN SCORE: Non-responsive. LOCATION: chest FINDINGS: Portable AP view of the chest demonstrates a normal size cardiac silhouette. Patient is rotated and u nderinflated. Endotracheal tube distal tip is at the clavicular head level measuring approximately 5 cm from the michelle. Left subclavian central line distal tip is in the SVC as is the right IJ central line. Nasogastric tube courses beyond the GE junction. There is a volume loss in the right hemithorax with mild increased opacity of the right lung in the upper and lower lung zones. Left lung demonstra janette no acute finding. No pneumothorax is visualized. CONCLUSION: 1. Endotracheal tube in appropriate position with tip measuring 5 cm from the michelle. 2. Increased volume loss in the right lung with associated increased airspace opacity. No pneumothora x is present. Michele Rousseau MD on September 20, 2017 at 16:22 Board Certified Radiologist. This report was verified electronically.
--- NOTE | 2017-09-20 16:28 | PD.PROCEDR ---
Procedure Note Procedure Emergency intubation for acute hypoxemic respiratory failure INTUBATION: The patient was put in optimal position for the procedure. Rapid sequence intubation was initiated by me using 20 milligrams of etomidate IV and 50 milligrams of Rocuronium IV. DL with Mac 4 blade Grade 1 view. The patient was intubated with a 8.5 cuffed endotracheal tube. Tube placement was confirmed by visualization of the tube and balloon passing through the cords, capnometry and subsequent chest x-ray. Breath sounds were equal and well aerated bilaterally postintubation. No breath sounds over stomach. Patient tolerated procedure well. Eileen Bautista MD Sep 20, 2017 16:28
[2017-09-20] MEDS ORDERED: ROCURONIUM INJ 50 MG/5 ML VIAL ONE (16:33)
[2017-09-20] MEDS ORDERED: EPOPROSTENOL NEB SOLUTION 50 NG/KG/MIN 100 ML NEB SCH ×2 (17:00)
[2017-09-20] MEDS ORDERED: ASP: Other exception documentation: ( ) PRN (17:30)
[2017-09-20] MEDS ORDERED: PHARMACY INFORMATION XX PRN (17:30)
--- NOTE | 2017-09-20 17:31 | HHI.IDPN ---
Subjective Subjective Remarks is a 67 y/o CM with PMHx significant for CAD, s/p PCI and stents. He was repeatedly diagnosed with sessile polyp and underwent exploratory laparoscopy with robotic takedown of splenic flexure, colonoscopy with tattooing and robotic ascending colectomy on 09/07/17 by . Reportedly, the urine output was low and urology was consulted when despite IVF urine output did not increase. Patient was seen by and underwent cystoscopy and bilateral ureteral catheter insertion with 500 cc of urine obtained. During the hospital stay patient subsequently had abdominal distention and despite NG tube to suction continued to have worsening distention and discomfort. A KUB done earlier on the day of CT on 09/11/2017 was negative for free air but subsequent imaging showed free air so patient was emergently taken to the OR by . Patient was found to have a small bowel defect and large amounts of of bowel contents were visible in peritoneum per op note. Critical Care was consulted and patient is currently being treated for Septic Shock with multiple pressors, IVF boluses given yday. He had low urine output and Nephrology is on the case and CVVHD initiated. Patient had issues with clotting of access line so CVVHD has been interrupted off and on. Patient is currently intubated on a ventilator. Not much resp secretions. Ileostomy output ok. Platelets have been low but no obvious bleeding from any sites. Patient remains sedated on vent. Patient has been started on empiric antibiotics Zosyn IV, Vanco IV x 1 dose, Flagyl IV, Micafungin IV. Left IJ Vascath placed on 09/11/2017 ID consulted for evaluation and Mment of Septic Shock, Secondary peritonitis. Notes reviewed Overnight events reviewed, kelly RN Extubated and reintubated. Concern for aspiration as GI contents in ET tube. Has output from his ileostomy CT A/P no intraabdominal abscess. 1 BRANDEN drain removed. No rash No diarrhea Antibiotics Cefepime IV Flagyl IV Micafungin IV Lines Line sites with no e.o infection Past Medical History reviewed Allergies: Coded Allergies: No Known Allergies (Unverified Allergy, Unknown, 09/07/17) Objective . Vital Signs Date Time Temp Pulse Resp B/P (MAP) Pulse Ox O2 Delivery O2 Flow Rate FiO2 09/20/17 15:56 50 100 09/20/17 15:55 60 100 09/20/17 15:53 50 BiPAP/CPAP 09/20/17 14:00 84 09/20/17 12:00 45 09/20/17 12:00 99.0 103 22 159/77 (104) 96 09/20/17 12:00 73 09/20/17 11:37 45 09/20/17 10:00 104 09/20/17 08:07 45 09/20/17 08:07 97 45 09/20/17 08:00 99.5 85 16 175/73 (107) 97 09/20/17 08:00 84 09/20/17 08:00 50 09/20/17 04:00 50 09/20/17 04:00 99.4 69 16 139/54 (82) 96 09/20/17 03:21 97 50 09/20/17 00:13 96 50 09/20/17 00:00 98.8 69 19 167/62 (97) 97 09/20/17 00:00 50 09/19/17 20:00 50 09/19/17 20:00 98.8 72 17 157/60 (92) 96 09/19/17 19:27 96 50 09/19/17 18:00 74 09/20/17 09/20/17 09/21/17 15:00 23:00 07:00 Output Total 5000 ml Balance -5000 ml Hemodialysis 5000 ml . Laboratory Tests Test 09/19/17 04:50 09/20/17 12:00 09/20/17 14:10 White Blood Count 13.8 TH/MM3 34.9 TH/MM3 25.9 TH/MM3 Red Blood Count 2.53 MIL/MM3 3.52 MIL/MM3 3.22 MIL/MM3 Hemoglobin 7.6 GM/DL 10.5 GM/DL 9.6 GM/DL Hematocrit 22.2 % 31.3 % 28.5 % Mean Corpuscular Volume 87.6 FL 88.9 FL 88.4 FL Mean Corpuscular Hemoglobin 30.1 PG 29.7 PG 29.7 PG Mean Corpuscular Hemoglobin Concent 34.4 % 33.4 % 33.6 % Red Cell Distribution Width 14.5 % 14.6 % 14.4 % Platelet Count 90 TH/MM3 158 TH/MM3 145 TH/MM3 Mean Platelet Volume 10.3 FL 10.3 FL 10.2 FL Neutrophils (%) (Auto) 91.7 % 87.5 % 92.4 % Lymphocytes (%) (Auto) 2.7 % 2.4 % 1.5 % Monocytes (%) (Auto) 5.4 % 9.6 % 5.8 % Eosinophils (%) (Auto) 0.0 % 0.2 % 0.1 % Basophils (%) (Auto) 0.2 % 0.3 % 0.2 % Neutrophils # (Auto) 12.6 TH/MM3 30.5 TH/MM3 23.9 TH/MM3 Lymphocytes # (Auto) 0.4 TH/MM3 0.8 TH/MM3 0.4 TH/MM3 Monocytes # (Auto) 0.7 TH/MM3 3.4 TH/MM3 1.5 TH/MM3 Eosinophils # (Auto) 0.0 TH/MM3 0.1 TH/MM3 0.0 TH/MM3 Basophils # (Auto) 0.0 TH/MM3 0.1 TH/MM3 0.1 TH/MM3 CBC Comment AUTO DIFF AUTO DIFF AUTO DIFF Differential Total Cells Counted 100 100 100 Neutrophils % (Manual) 77 % 83 % 89 % Band Neutrophils % 15 % 5 % Lymphocytes % 4 % 1 % Neutrophils # (Manual) 13.2 TH/MM3 31.1 TH/MM3 23.6 TH/MM3 Metamyelocytes 2 % 2 % Myelocytes 2 % 1 % Differential Comment FINAL DIFF MANUAL FINAL DIFF MANUAL FINAL DIFF MANUAL Platelet Estimate LOW NORMAL LOW Platelet Morphology Comment NORMAL NORMAL NORMAL Monocytes % 10 % 7 % Eosinophils % 1 % Toxic Granulation 1+ 2+ Dohle Bodies PRESENT PRESENT Basophils % 1 % Laboratory Tests Test 09/19/17 04:50 09/20/17 04:29 Blood Urea Nitrogen 78 MG/DL 81 MG/DL Creatinine 4.19 MG/DL 4.47 MG/DL Random Glucose 126 MG/DL 107 MG/DL Albumin 2.2 GM/DL 2.3 GM/DL Calcium Level 7.7 MG/DL 7.8 MG/DL Phosphorus Level 7.9 MG/DL 5.9 MG/DL Magnesium Level 2.6 MG/DL Sodium Level 139 MEQ/L 142 MEQ/L Potassium Level 4.7 MEQ/L 4.4 MEQ/L Chloride Level 101 MEQ/L 103 MEQ/L Carbon Dioxide Level 24.6 MEQ/L 26.7 MEQ/L Anion Gap 13 MEQ/L 12 MEQ/L Estimat Glomerular Filtration Rate 14 ML/MIN 13 ML/MIN Microbiology Date/Time Source Procedure Growth Status 09/20/17 16:39 Blood Peripheral Aerobic Blood Culture Pending Received 09/20/17 16:39 Blood Peripheral Anaerobic Blood Culture Pending Received 09/20/17 16:35 Blood Peripheral Aerobic Blood Culture Pending Received 09/20/17 16:35 Blood Peripheral Anaerobic Blood Culture Pending Received Imaging Chest X-Ray 09/19/17 0600 Signed Impressions: Service Date/Time: Tuesday, September 19, 2017 04:53 - CONCLUSION: Slightly improving bibasilar densities. Lazarus Penaloza MD Abdomen/Pelvis CT 09/18/17 0000 Signed Impressions: Service Date/Time: Monday, September 18, 2017 15:55 - CONCLUSION: 1. No evidence of intra-abdominal abscess. 2. Small bilateral pleural effusions with adjacent alveolar consolidations consistent with compressive atelectasis or pneumonia. Clinical correlation is recommended. 3. Cholelithiasis. 4. 8.5 cm right renal cyst. 5. Degenerative changes and scoliosis of the thoraco-lumbar spine. 6. 2 low-density lesions within the liver measuring 1.8 cm in the right dome and 1.2 cm in the inferior right lobe which are indeterminate on this unenhanced examination. 7. Cardiomegaly and coronary artery calcification noted. Edwin Marie MD Chest X-Ray 09/13/17 0600 Signed Impressions: Service Date/Time: September 05:23 - CONCLUSION: Slight interval worsening in aeration. Michele Coleman MD Abdomen X-Ray 09/13/17 0000 Signed Impressions: Service Date/Time: September 10:52 - CONCLUSION: Gastric tube tip and side-port project over the stomach. Andrés Gardner MD Renal Ultrasound 09/10/17 0000 Signed Impressions: Service Date/Time: Sunday, September 10, 2017 15:17 - CONCLUSION: No evidence of mass or hydronephrosis. Andrés Gardner MD Physical Exam GENERAL: This is a well-nourished, well-developed patient, in no apparent distress. Eyes open, did not follow SKIN: Cool and dry. NO rash or ecchymoses. Edematous HEAD: Atraumatic. Normocephalic. EYES: Pupils equal round and reactive. No scleral icterus. No injection or drainage. ENT: Intubated orally. NO nasal drainage NECK: Trachea midline. Supple, nontender, no meningeal signs. CARDIOVASCULAR: HS audible. RESPIRATORY: Clear to auscultation. Breath sounds equal bilaterally but decreased in the bases. GASTROINTESTINAL: Abdomen soft, Ostomy bag with dark green liquid stool. BRANDEN drain x 2, left drain with greyish drainage. Midline sutures now with open area, packed with wet to dry dressing in place. Rest of sutures in place, has a very small amount of purulence in upper incision MUSCULOSKELETAL: Extremities without clubbing, cyanosis. Pedal and hand edema noted. NEUROLOGICAL: Eyes open, not following Psych could not be assessed IV line sites with no e.o infection. Has RIJ TLC and LSC vascath Assessment & Plan Remarks Possible new sepsis. Elevated WBC count. Secondary peritonitis due to small bowel perforation s/p Enterotomy and washout , has an end ileostomy Abdominal wound infection S/P robotic splenic flexure takedown on 09/07/17 S/P cystoscopy with bilateral ureteroscopies on 09/07/2017 Thrombocytopenia: sepsis, DIC - seems to have plateau Acute renal failure: prerenal, sepsis. - on HD Recs: DC Cefepime IV DC Flagyl IV DC Diflucan IV Start Meropenem IV(ASP: worsening infection while on BSA) Start Levaquin to cover for possible Steno malto etc pending cultures. Start Micafungin IV Follow cultures Lu Orozco MD Sep 20, 2017 17:30
--- NOTE | 2017-09-20 17:39 | PD.PROCEDR ---
Procedure Note Procedure PROCEDURE: Fiberoptic bronchoscopy with therapeutic lavage ANESTHESIA: IV Versed 5mg, Rocuronium 30 mg IV. The patient is intubated and already on ventilator support. PREOP DIAGNOSIS: Atelectasis left lung. POSTOP DIAGNOSIS: Same PROCEDURE: The Olympus fiberoptic bronchoscope was advanced via the endotracheal tube into the trachea. The right main bronchus and bronchus intermedius had plugging with thick tenacious white secretions which was lavaged and suctioned out with multiple attempts. Right lower lobe and middle lobe segmental bronchi had thick white secretions, again these were lavaged and removed after multiple attempts. Right upper lobe also had moderate amount of white secretions, none of the bronchi appeared inflamed. Left mainstem bronchus showed small amount of mucoid secretions. These were suctioned out left lower lobe and left upper lobe /lingular segmental bronchi did not show any significant secretions or inflammation. BAL specimen collected from right lower lobe. Patient tolerated procedure well sats were maintained above 90% throughout the procedure Eileen Bautista MD Sep 20, 2017 17:39
[2017-09-20] MEDS: MICAFUNGIN INJ 150 MG in SODIUM CHLORIDE 0.9% INJ 100 ML IV SCH (18:00)
--- NOTE | 2017-09-20 18:06 | RADRPT ---
EXAM DATE/TIME: 09/20/2017 17:31 [facility] COMPARISON: CHEST SINGLE AP, September 20, 2017, 15:42. INDICATIONS : Post bronchoscopy. MEDICAL HISTORY : Myocardial infarction. Hypercholesterolemia. Thyroid disease. Tinnitus. HTN.Mildly enlarged prostate. Gout. SURGICAL HISTORY : Coronary stent and cardia catheterization. ENCOUNTER: Subsequent ACUITY: 1 day PAIN SCORE: Non-responsive. LOCATION: Bilateral chest FINDINGS: Stable ETT, NGT extending beyond the GE junction, right IJ central line and left subclavian temporary dialysis catheter. No pneumothorax. Marked improved aeration in the right lung with platelike atelec tasis in the right midlung. Minimal airspace disease in the left lower lung zone. Cardiomediastinal c ontours are stable. Remainder of the exam is unchanged. CONCLUSION: 1. Stable tubes and lines. 2. No pneumothorax status post bronchoscopy. 3. Marked improved aeration of the right lung with mild residual atelectasis in the right midlung. 4. Mild left lower lung zone airspace disease, likely atelectasis. Tutu Erickson MD on September 20, 2017 at 18:01 Board Certified Radiologist. This report was verified electronically.
[2017-09-20] MEDS ORDERED: Vancomycin Consult Pharmacy 1 EA OTHER SCH (18:15)
[2017-09-20] MEDS ORDERED: MIDAZOLAM HCL 5 MG/ML VIAL (1 ML) IV ONE (18:15)
[2017-09-20] MEDS: SODIUM CHLOR 0.9% 1000 ML INJ 1,000 ML IV SCH ×2 (18:15→21:25)
[2017-09-20] MEDS ORDERED: ROCURONIUM INJ 50 MG/5 ML VIAL IV ONE (18:15)
[2017-09-20] MEDS ORDERED: VANCOMYCIN INJ 1,000 MG in SODIUM CHLOR 0.9% 250 ML INJ 250 ML IV ONE (18:45)
[2017-09-20] MEDS ORDERED: VASOPRESSIN 40 U/D5W 100 ML Titrate IV PRN ×2 (19:45)
[2017-09-20] MEDS ORDERED: EPINEPHrine 2 MG/D5W 250 ML IV PRN ×2 (19:45)
[2017-09-20] MEDS ORDERED: DOBUTamine PREMIX DRIP 250 ML IV PRN (19:45)
[2017-09-20] MEDS: MEROPENEM INJ 1,000 MG in SODIUM CHLORIDE 0.9% INJ 100 ML IV SCH (21:24)
[2017-09-20] MEDS: LEVOFLOXACIN 500 MG PREMIX INJ 100 ML IV SCH (23:07)
[2017-09-21] VITALS (17 sets, daily range): BP systolic 134–184; BP diastolic 54–76; PULSE 66–89; RESP 19–22; TEMP 97.9–99.5; O2SAT 94–100
[2017-09-21] MEDS: INSULIN ASPART SUPPLEMENTAL SCALE SQ SCH ×4 (00:41→18:00)
[2017-09-21] MEDS: HEPARIN SODIUM - SQ 10,000 UNITS/ML VIAL SQ SCH ×2 (02:35→15:00)
[2017-09-21] MEDS: MEROPENEM INJ 1,000 MG in SODIUM CHLORIDE 0.9% INJ 100 ML IV SCH ×2 (03:48→13:05)
[2017-09-21] MEDS: RESP: ALBUTEROL 2.5 MG/IPRATROPIUM 0.5 MG NEB (SCH) NEB ×2 (04:14→08:40)
--- NOTE | 2017-09-21 04:53 | RADRPT ---
EXAM DATE/TIME: 09/21/2017 03:33 [facility] COMPARISON: CHEST SINGLE AP, September 20, 2017, 17:31. INDICATIONS : Shortness of breath. MEDICAL HISTORY : Myocardial infarction. Hypercholesterolemia. Thyroid disease. Tinnitus. HTN.Mildly enlarged prostate. Gout. SURGICAL HISTORY : Coronary stent and cardia catheterization. ENCOUNTER: Subsequent ACUITY: 2 weeks PAIN SCORE: Non-responsive. LOCATION: chest FINDINGS: Endotracheal tube, nasogastric tube and left subclavian dialysis catheter are stable. There has been slight interval worsening in aeration with increasing confluence of left base infiltrate and mild inc rease in right perihilar infiltrate. Accounting for rotation, cardiac contours are stable. CONCLUSION: Slight interval worsening in aeration Michele Coleman MD on September 21, 2017 at 4:50 Board Certified Radiologist. This report was verified electronically.
[2017-09-21 05:29] LABS: BASOPHIL # 0.1 TH/MM3 (0-0.2); BASOPHIL % 0.4 % (0.0-2.0); EOSINOPHIL % 0.1 % (0.0-4.0); HEMATOCRIT 24.2 % (39.0-51.0); HEMOGLOBIN 8.3 GM/DL (13.0-17.0); LYMPH % 3.4 % (9.0-44.0); LYMPHOCYTE # 0.6 TH/MM3 (1.0-4.8); MEAN CELL VOLUME 88.3 FL (80.0-100.0); MEAN CORPUSCULAR HEMOGLOBIN 30.1 PG (27.0-34.0); MEAN CORPUSCULAR HGB CONC 34.1 % (32.0-36.0); MEAN PLATELET VOLUME 9.6 FL (7.0-11.0); MONO % 10.1 % (0.0-8.0); MONOCYTE # 1.9 TH/MM3 (0-0.9); PLATELET COUNT 117 TH/MM3 (150-450); RED BLOOD COUNT 2.74 MIL/MM3 (4.50-5.90); RED CELL DISTRIBUTION WIDTH 14.5 % (11.6-17.2); WHITE BLOOD COUNT 18.6 TH/MM3 (4.0-11.0)
[2017-09-21] MEDS: LEVOTHYROXINE SODIUM 50 MCG TAB PO SCH (05:37)
[2017-09-21] MEDS: ARTIFICIAL TEARS OPTH SOLN 15 ML BTL EACH EYE SCH ×3 (05:38→21:35)
[2017-09-21] MEDS: METOCLOPRAMIDE HCL 10 MG/2 ML VIAL IV PUSH SCH ×3 (05:38→21:34)
[2017-09-21 06:08] LABS: ALKALINE PHOSPHATASE 75 U/L (45-117); ALT (GPT) 34 U/L (12-78); AST (GOT) 28 U/L (15-37); BICARBONATE 23.4 MEQ/L (21.0-32.0); BLOOD UREA NITROGEN 93 MG/DL (7-18); CALCIUM 7.8 MG/DL (8.5-10.1); CHLORIDE 105 MEQ/L (98-107); CREATININE 5.38 MG/DL (0.60-1.30); GLOMERULAR FILTRATION RATE 11 ML/MIN (>89); GLUCOSE,RANDOM 137 MG/DL (74-106); SODIUM (NA) 143 MEQ/L (136-145); TOTAL BILIRUBIN ADULT 2.2 MG/DL (0.2-1.0); TOTAL PROTEIN 5.8 GM/DL (6.4-8.2)
[2017-09-21 07:02] LABS: DOHLE BODIES PRESENT (NONE SEEN); TOXIC GRANULATION 1+ (NORMAL)
[2017-09-21] MEDS: CHOLECALCIFEROL (VIT D3) LIQ 400 UNITS/ML 50 ML BOTTLE PO SCH (09:00)
[2017-09-21] MEDS: amLODIPine BESYLATE 5 MG TAB PO SCH (09:00)
[2017-09-21] MEDS: METOPROLOL SUCCINATE 25 MG EXTENDED RELEASE TAB PO SCH (09:00)
[2017-09-21] MEDS: CARVEDILOL 3.125 MG TAB PO SCH ×2 (09:00→20:58)
[2017-09-21] MEDS: PANTOPRAZOLE SODIUM 40 MG VIAL IVP SCH (09:00)
--- NOTE | 2017-09-21 10:39 | HHI.NPPN ---
Subjective General Problems: Anemia, Edema Renal Failure: Acute Interval History Unable to extubate yesterday, currently on CPAP trial. Renal function is worse despite daily dialysis. He is on vasopressin and dobutamine despite MAP over 100 mmHg. (Helena Malave) Review of Systems General General Remarks unable to evaluate (Helena Malave) Objective Data Data Vital Signs Date Time Temp Pulse Resp B/P (MAP) Pulse Ox O2 Delivery O2 Flow Rate FiO2 09/21/17 08:44 99 40 09/21/17 06:00 76 09/21/17 04:17 100 60 09/21/17 04:00 70 09/21/17 04:00 99.5 80 19 164/72 (102) 100 09/21/17 04:00 80 09/21/17 02:44 85 176/75 09/21/17 02:00 80 09/21/17 00:00 70 09/21/17 00:00 99.5 82 19 184/76 (112) 99 09/21/17 00:00 82 09/20/17 23:46 98 70 09/20/17 22:00 80 09/20/17 20:17 98 70 09/20/17 20:00 70 09/20/17 20:00 100.0 72 18 176/72 (106) 97 09/20/17 20:00 72 09/20/17 18:00 78 09/20/17 17:54 100 70 09/20/17 16:35 100 100 09/20/17 16:00 87 09/20/17 16:00 100.9 77 18 196/78 (117) 98 09/20/17 16:00 100 09/20/17 15:56 50 100 09/20/17 15:55 60 100 09/20/17 15:53 50 BiPAP/CPAP 09/20/17 14:00 84 09/20/17 12:00 45 09/20/17 12:00 99.0 103 22 159/77 (104) 96 09/20/17 12:00 73 09/20/17 11:37 45 (Helena Malave) -: 09/21/17 0500 09/21/17 0500 Microbiology 09/20/17 Aerobic Blood Culture, Received Pending 09/20/17 Anaerobic Blood Culture, Received Pending 09/20/17 Aerobic Blood Culture, Received Pending 09/20/17 Anaerobic Blood Culture, Received Pending 09/20/17 Fungal Smear, Received Pending 09/20/17 Fungal Culture, Received Pending 09/20/17 Acid Fast Stain, Received Pending 09/20/17 Mycobacterial Culture, Received Pending 09/20/17 Gram Stain - Final, Resulted 09/20/17 Bronchial Culture, Resulted Pending Imaging Last 72 hours Impressions Chest X-Ray 09/21/17 0600 Signed Impressions: Service Date/Time: Thursday, September 21, 2017 03:33 - CONCLUSION: Slight interval worsening in aeration Michele Coleman MD Chest X-Ray 09/20/17 0000 Signed Impressions: Service Date/Time: September 17:31 - CONCLUSION: 1. Stable tubes and lines. 2. No pneumothorax status post bronchoscopy. 3. Marked improved aeration of the right lung with mild residual atelectasis in the right midlung. 4. Mild left lower lung zone airspace disease, likely atelectasis. Tutu Erickson MD Chest X-Ray 09/20/17 0000 Signed Impressions: Service Date/Time: September 15:42 - CONCLUSION: 1. Endotracheal tube in appropriate position with tip measuring 5 cm from the michelle. 2. Increased volume loss in the right lung with associated increased airspace opacity. No pneumothorax is present. Michele Rousseau MD Chest X-Ray 09/19/17 0600 Signed Impressions: Service Date/Time: Tuesday, September 19, 2017 04:53 - CONCLUSION: Slightly improving bibasilar densities. Lazarus Penaloza MD Tubes & Lines: Perma-Cath, Canela Tubes & Lines Comment TLC right IJ VC left IJ A line ileostomy RLQ BRANDEN drains x 2 abd Drip Comment vasopressin, dobutamine (Helena Malave) Physical Exam General Appearance: Well Developed, Comfortable Appearance Remarks intubated via ETT, awake on vent, not in distress (Helena Malave) Throat Throat Exam: Oral Mucosa [place] & Moist (Helena Malave) Neck Neck Exam: Neck Supple (Helena Malave) Pulmonary Resp Exam: Breath Sounds Equal, No Distress, Decreased Bases Resp Remarks vented lung sounds (Helena Malave) Cardiology CV Exam: Regular, Normal Sinus Rhythm (Helena Malave) Gastrointestinal/Abdomen GI Exam: Soft, Positive Bowel Movement, Distended, Bowel Sounds Hypoactive GI Remarks abd binder in place, BRANDEN drain in place x2 ileostomy, stoma is pink, has small output (Helena Malave) Genitourinary Remarks oliguric, urine is dark (Helena Malave) Musculoskeletal MS Exam: Joints Intact, Good Strength, Unable to Ambulate (Helena Malave) Integumentary Skin Exam: Warm, Dry, Intact Skin Remarks midabdominal incision (Helena Malave) Extremeties Extremities Exam: Pedal Pulses Palpable, Moderate Edema (Helena Malave) Neurologic Neuro Exam: Alert, Awake (Helena Malave) Psychiatric Psych Exam: Appropriate Responses (Helena Malave) VTE Prophylaxis Device: SCDs (Helena Malave) Assessment/Plan Discussed Condition With: Spouse Assessment Summary: JOSEF/Acute Renal Failure, Acute Tubular Necrosis, Hypotension Electrolyte Assessment: Hypocalcemia Problem List: (1) JOSEF (acute kidney injury) ICD Codes: N17.9 - Acute kidney failure, unspecified Plan: His renal function is normal at baseline Oliguric renal failure, ATN, secondary to sepsis On CRRT from 09/11-09/12. Has been on daily HD since 09/13. 5L UF yesterday Renal function is worse HD today, 3L goal. Obtain labs in AM, follow urine output Monitor fluid status, has had extensive fluid removal recently. Avoid nephrotoxic agents. Avoid IVF. On calcium acetate TID, monitor phosphorus level. It is unclear why he is on a pressors and an inotrope (2) S/P partial colectomy ICD Codes: Z90.49 - Acquired absence of other specified parts of digestive tract Plan: He developed small bowel perforation after robotic surgery, s/p emergent ex lap with I&D /3 Management per surgery and CCM has ileostomy that is draining Continue supportive care for sepsis and renal failure Prognosis is guarded. (3) Sepsis ICD Codes: A41.9 - Sepsis, unspecified organism Plan: Due to above ID following, antibiotics changed, include Levaquin, meropenem, and micafungin. Off cefepime, fluconazole, Flagyl monitor drug levels when appropriate I (4) Hypocalcemia ICD Codes: E83.51 - Hypocalcemia Plan: On liquid vitamin D for deficiency (Helena Mlaave) Plan patient was seen and examined. Remains oliguric. Dialysis today. Not extubated yet. (Nish Zhu MD) Helena Malave Sep 21, 2017 10:39 Nish Zhu MD Sep 21, 2017 12:49
--- NOTE | 2017-09-21 12:51 | HHI.IDPN ---
Subjective Subjective Remarks is a 67 y/o CM with PMHx significant for CAD, s/p PCI and stents. He was repeatedly diagnosed with sessile polyp and underwent exploratory laparoscopy with robotic takedown of splenic flexure, colonoscopy with tattooing and robotic ascending colectomy on 09/07/17 by . Reportedly, the urine output was low and urology was consulted when despite IVF urine output did not increase. Patient was seen by and underwent cystoscopy and bilateral ureteral catheter insertion with 500 cc of urine obtained. During the hospital stay patient subsequently had abdominal distention and despite NG tube to suction continued to have worsening distention and discomfort. A KUB done earlier on the day of CT on 09/11/2017 was negative for free air but subsequent imaging showed free air so patient was emergently taken to the OR by . Patient was found to have a small bowel defect and large amounts of of bowel contents were visible in peritoneum per op note. Critical Care was consulted and patient is currently being treated for Septic Shock with multiple pressors, IVF boluses given yday. He had low urine output and Nephrology is on the case and CVVHD initiated. Patient had issues with clotting of access line so CVVHD has been interrupted off and on. Patient is currently intubated on a ventilator. Not much resp secretions. Ileostomy output ok. Platelets have been low but no obvious bleeding from any sites. Patient remains sedated on vent. Patient has been started on empiric antibiotics Zosyn IV, Vanco IV x 1 dose, Flagyl IV, Micafungin IV. Left IJ Vascath placed on 09/11/2017 ID consulted for evaluation and Mment of Septic Shock, Secondary peritonitis. Overnight events reviewed with RN Extubated and reintubated. Concern for aspiration as GI contents in ET tube. Low grade fevers 100.0 overnight. Has output from his ileostomy. CT A/P no intraabdominal abscess. 1 BRANDEN drain removed. No rash No diarrhea Antibiotics Meropenem IV Levaquin IV Vanco IV Current Medications Medications (Trade) Dose Ordered Sig/Emilee Route Start Time Stop Time Status Last Admin (Protonix Inj) 40 mg DAILY IVP 09/08/17 09:00 09/21/17 09:00 (Zofran Inj) 4 mg Q6H PRN IV PUSH 09/07/17 16:00 09/08/17 01:06 (Vasotec Inj) 1.25 mg Q4H PRN IV PUSH 09/07/17 16:00 Future Hold (Vasotec Inj) 2.5 mg Q6H PRN IV PUSH 09/07/17 16:00 Future Hold Potassium Chloride 100 ml @ 50 mls/hr UNSCH PRN IV 09/07/17 16:00 Potassium Chloride 100 ml @ 25 mls/hr UNSCH PRN IV-CENTRAL 09/07/17 16:00 (Heparin Inj) 5,000 units Q12H SQ 09/08/17 15:00 Future hold 09/20/17 14:23 (Narcan Inj) 0.4 mg UNSCH PRN IV PUSH 09/07/17 16:00 (Benadryl Inj) 25 mg Q6H PRN IV PUSH 09/07/17 16:00 (Norvasc) 5 mg DAILY PO 09/08/17 09:00 Future hold 09/10/17 09:50 (Toprol Xl) 25 mg DAILY PO 09/08/17 09:00 Future hold 09/10/17 09:50 (Dilaudid Pf Inj) 0.2 mg Q3H PRN IV 09/08/17 21:45 09/10/17 23:32 (Benadryl Inj) 25 mg HS PRN IV PUSH 09/10/17 20:15 Sodium Chloride 1,000 ml @ 0 mls/hr Q0M PRN OTHER 09/11/17 09:25 09/16/17 20:09 (Heparin Inj) 8,000 units UNSCH PRN IV FLUSH 09/11/17 09:30 09/17/17 15:47 Sodium Chloride 1,000 ml @ 200 mls/hr Q5H PRN IV 09/11/17 09:25 Sodium Chloride 1,000 ml @ 0 mls/hr Q0M PRN OTHER 09/11/17 09:25 (Mannitol Inj) 12.5 gm UNSCH PRN IV 09/11/17 09:30 Albumin Human 100 ml @ 60 mls/hr UNSCH PRN IV 09/11/17 09:30 09/19/17 14:11 (NS Flush) 5 ml UNSCH PRN IV FLUSH 09/11/17 09:30 09/19/17 19:57 (Heparin Inj) UNSCH PRN .XX 09/11/17 09:30 09/19/17 13:26 (Gentamicin Inj) 20 mg UNSCH PRN OTHER 09/11/17 09:30 09/20/17 11:07 (Zofran Inj) 4 mg UNSCH PRN IV PUSH 09/11/17 09:30 (Tylenol) 650 mg UNSCH PRN PO 09/11/17 09:30 (Benadryl) 25 mg UNSCH PRN PO 09/11/17 09:30 (Nitrostat Sl) 0.4 mg UNSCH PRN SL 09/11/17 09:30 (Catapres) 0.1 mg UNSCH PRN PO 09/11/17 09:30 (Gelfoam 12 Mm/7 Mm Top) 1 foam UNSCH PRN TOP 09/11/17 09:30 Amiodarone HCl 450 mg/Sodium Chloride 250 ml @ 33.33 mls/ hr Q7H31M PRN IV 09/11/17 12:00 09/18/17 12:19 Propofol 100 ml @ 2.895 mls/ hr TITRATE PRN IV 09/11/17 12:45 09/19/17 06:46 Sodium Chloride 1,000 ml @ 0 mls/hr UNSCH PRN OTHER 09/11/17 13:00 (KCl 40 Meq Premix Inj) *FOR DIALYSIS USE IN C... WITH DIALYSIS PRN .XX 09/11/17 13:00 (Brethine Inj) 1 mg UNSCH PRN SQ 09/11/17 16:45 Fentanyl Citrate 250 ml @ 5 mls/hr TITRATE PRN IV 09/12/17 11:00 09/19/17 06:07 (Tears Naturale Opth Soln) 1 drop Q8HR EACH EYE 09/14/17 14:00 09/21/17 05:38 (Albuterol Neb) 2.5 mg Q2HR NEB PRN NEB 09/14/17 09:00 (Synthroid) 50 mcg DAILY@0600 PO 09/15/17 06:00 09/21/17 05:37 (D50w (Vial) Inj) 50 ml UNSCH PRN IV PUSH 09/14/17 09:45 (Glucagon Inj) 1 mg UNSCH PRN OTHER 09/14/17 09:45 (NovoLOG SUPPLEMENTAL SCALE) 1 Q6HR SQ 09/14/17 12:00 09/21/17 00:41 (Vitamin D Liq) 2,000 units DAILY PO 09/14/17 14:30 09/19/17 08:37 (Trandate Inj) 20 mg Q2H PRN IV PUSH 09/15/17 14:00 09/20/17 15:19 (Apresoline Inj) 10 mg Q30M PRN IV PUSH 09/15/17 14:00 09/15/17 21:00 (Duoneb Neb) 1 ampule Q6HR NEB NEB 09/17/17 16:00 09/21/17 08:40 (Reglan Inj) 5 mg Q8HR IV PUSH 09/17/17 22:00 09/21/17 05:38 (Tylenol) 1,000 mg Q8H PRN PO 09/18/17 09:00 (Coreg) 3.125 mg Q12HR PO 09/18/17 10:00 09/20/17 21:21 Micafungin Sodium 150 mg/Sodium Chloride 100 ml @ 100 mls/hr Q24H IV 09/20/17 18:00 09/20/17 18:00 Levofloxacin/ Dextrose 100 ml @ 100 mls/hr Q24H IV 09/20/17 21:00 09/20/17 23:07 (ASP Crit: Other exception documentation) 1 UNSCH X1 PRN .XX 09/20/17 17:30 09/21/17 17:29 ([facility] Information) 1 UNSCH X1 PRN XX 09/20/17 17:30 09/21/17 17:29 Meropenem 1000 mg/ Sodium Chloride 100 ml @ 200 mls/hr Q8H IV 09/20/17 20:00 09/21/17 03:48 Pharmacy Profile Note 0 ml @ 0 mls/hr UNSCH OTHER 09/20/17 18:15 Epinephrine HCl 2 mg/Dextrose 250 ml @ 22.5 mls/hr TITRATE PRN IV 09/20/17 19:45 Vasopressin 40 units/Dextrose 100 ml @ 6 mls/hr TITRATE PRN IV 09/20/17 19:45 09/21/17 02:44 Dobutamine HCl/ Dextrose 250 ml @ 11.985 mls/ hr TITRATE PRN IV 09/20/17 19:45 Lines Line sites with no e.o infection Past Medical History reviewed Allergies: Coded Allergies: No Known Allergies (Unverified Allergy, Unknown, 09/07/17) Objective . Vital Signs Date Time Temp Pulse Resp B/P (MAP) Pulse Ox O2 Delivery O2 Flow Rate FiO2 09/21/17 12:00 71 09/21/17 12:00 40 09/21/17 12:00 98.1 76 22 134/54 (80) 99 09/21/17 11:43 94 40 09/21/17 10:00 74 09/21/17 08:45 40 09/21/17 08:44 99 40 09/21/17 08:00 98.2 70 19 140/60 (86) 99 09/21/17 08:00 40 09/21/17 08:00 70 09/21/17 06:00 76 09/21/17 04:17 100 60 09/21/17 04:00 70 09/21/17 04:00 99.5 80 19 164/72 (102) 100 09/21/17 04:00 80 09/21/17 02:44 85 176/75 09/21/17 02:00 80 09/21/17 00:00 70 09/21/17 00:00 99.5 82 19 184/76 (112) 99 09/21/17 00:00 82 09/20/17 23:46 98 70 09/20/17 22:00 80 09/20/17 20:17 98 70 09/20/17 20:00 70 09/20/17 20:00 100.0 72 18 176/72 (106) 97 09/20/17 20:00 72 09/20/17 18:00 78 09/20/17 17:54 100 70 09/20/17 16:35 100 100 09/20/17 16:00 87 09/20/17 16:00 100.9 77 18 196/78 (117) 98 09/20/17 16:00 100 09/20/17 15:56 50 100 09/20/17 15:55 60 100 09/20/17 15:53 50 BiPAP/CPAP 09/20/17 14:00 84 . Laboratory Tests Test 09/20/17 12:00 09/20/17 14:10 09/21/17 05:00 White Blood Count 34.9 TH/MM3 25.9 TH/MM3 18.6 TH/MM3 Red Blood Count 3.52 MIL/MM3 3.22 MIL/MM3 2.74 MIL/MM3 Hemoglobin 10.5 GM/DL 9.6 GM/DL 8.3 GM/DL Hematocrit 31.3 % 28.5 % 24.2 % Mean Corpuscular Volume 88.9 FL 88.4 FL 88.3 FL Mean Corpuscular Hemoglobin 29.7 PG 29.7 PG 30.1 PG Mean Corpuscular Hemoglobin Concent 33.4 % 33.6 % 34.1 % Red Cell Distribution Width 14.6 % 14.4 % 14.5 % Platelet Count 158 TH/MM3 145 TH/MM3 117 TH/MM3 Mean Platelet Volume 10.3 FL 10.2 FL 9.6 FL Neutrophils (%) (Auto) 87.5 % 92.4 % 86.0 % Lymphocytes (%) (Auto) 2.4 % 1.5 % 3.4 % Monocytes (%) (Auto) 9.6 % 5.8 % 10.1 % Eosinophils (%) (Auto) 0.2 % 0.1 % 0.1 % Basophils (%) (Auto) 0.3 % 0.2 % 0.4 % Neutrophils # (Auto) 30.5 TH/MM3 23.9 TH/MM3 16.0 TH/MM3 Lymphocytes # (Auto) 0.8 TH/MM3 0.4 TH/MM3 0.6 TH/MM3 Monocytes # (Auto) 3.4 TH/MM3 1.5 TH/MM3 1.9 TH/MM3 Eosinophils # (Auto) 0.1 TH/MM3 0.0 TH/MM3 0.0 TH/MM3 Basophils # (Auto) 0.1 TH/MM3 0.1 TH/MM3 0.1 TH/MM3 CBC Comment AUTO DIFF AUTO DIFF AUTO DIFF Differential Total Cells Counted 100 100 Neutrophils % (Manual) 83 % 89 % Band Neutrophils % 5 % Monocytes % 10 % 7 % Eosinophils % 1 % Neutrophils # (Manual) 31.1 TH/MM3 23.6 TH/MM3 Myelocytes 1 % Differential Comment FINAL DIFF MANUAL FINAL DIFF MANUAL AUTO DIFF CONFIRMED Toxic Granulation 1+ 2+ 1+ Dohle Bodies PRESENT PRESENT PRESENT Platelet Estimate NORMAL LOW LOW Platelet Morphology Comment NORMAL NORMAL NORMAL Lymphocytes % 1 % Basophils % 1 % Metamyelocytes 2 % Laboratory Tests Test 09/20/17 04:29 09/21/17 05:00 Blood Urea Nitrogen 81 MG/DL 93 MG/DL Creatinine 4.47 MG/DL 5.38 MG/DL Random Glucose 107 MG/DL 137 MG/DL Albumin 2.3 GM/DL 2.0 GM/DL Calcium Level 7.8 MG/DL 7.8 MG/DL Phosphorus Level 5.9 MG/DL Sodium Level 142 MEQ/L 143 MEQ/L Potassium Level 4.4 MEQ/L 4.3 MEQ/L Chloride Level 103 MEQ/L 105 MEQ/L Carbon Dioxide Level 26.7 MEQ/L 23.4 MEQ/L Anion Gap 12 MEQ/L 15 MEQ/L Estimat Glomerular Filtration Rate 13 ML/MIN 11 ML/MIN Total Protein 5.8 GM/DL Alkaline Phosphatase 75 U/L Aspartate Amino Transf (AST/SGOT) 28 U/L Alanine Aminotransferase (ALT/SGPT) 34 U/L Total Bilirubin 2.2 MG/DL Microbiology Date/Time Source Procedure Growth Status 09/20/17 16:39 Blood Peripheral Aerobic Blood Culture - Preliminary NO GROWTH IN 1 DAY Resulted 09/20/17 16:39 Blood Peripheral Anaerobic Blood Culture - Preliminary NO GROWTH IN 1 DAY Resulted 09/20/17 16:35 Blood Peripheral Aerobic Blood Culture - Preliminary NO GROWTH IN 1 DAY Resulted 09/20/17 16:35 Blood Peripheral Anaerobic Blood Culture - Preliminary NO GROWTH IN 1 DAY Resulted 09/20/17 17:00 Bronchial Washings Right Lower Lobe Fungal Smear - Final NO FUNGAL ELEMENTS SEEN. Resulted 09/20/17 17:00 Bronchial Washings Right Lower Lobe Fungal Culture Pending Resulted 09/20/17 17:00 Bronchial Washings Right Lower Lobe Acid Fast Stain Pending Received 09/20/17 17:00 Bronchial Washings Right Lower Lobe Mycobacterial Culture Pending Received 09/20/17 17:00 Bronchial Washings Right Lower Lobe Gram Stain - Final Resulted 09/20/17 17:00 Bronchial Washings Right Lower Lobe Bronchial Culture Pending Resulted Imaging Chest X-Ray 09/19/17 0600 Signed Impressions: Service Date/Time: Tuesday, September 19, 2017 04:53 - CONCLUSION: Slightly improving bibasilar densities. Lazarus Penaloza MD Abdomen/Pelvis CT 09/18/17 0000 Signed Impressions: Service Date/Time: Monday, September 18, 2017 15:55 - CONCLUSION: 1. No evidence of intra-abdominal abscess. 2. Small bilateral pleural effusions with adjacent alveolar consolidations consistent with compressive atelectasis or pneumonia. Clinical correlation is recommended. 3. Cholelithiasis. 4. 8.5 cm right renal cyst. 5. Degenerative changes and scoliosis of the thoraco-lumbar spine. 6. 2 low-density lesions within the liver measuring 1.8 cm in the right dome and 1.2 cm in the inferior right lobe which are indeterminate on this unenhanced examination. 7. Cardiomegaly and coronary artery calcification noted. Edwin Marie MD Chest X-Ray 09/13/17 0600 Signed Impressions: Service Date/Time: September 05:23 - CONCLUSION: Slight interval worsening in aeration. Michele Coleman MD Abdomen X-Ray 09/13/17 0000 Signed Impressions: Service Date/Time: September 10:52 - CONCLUSION: Gastric tube tip and side-port project over the stomach. Andrés Gardner MD Renal Ultrasound 09/10/17 0000 Signed Impressions: Service Date/Time: Sunday, September 10, 2017 15:17 - CONCLUSION: No evidence of mass or hydronephrosis. Andrés Gardner MD Physical Exam GENERAL: This is a well-nourished, well-developed patient, in no apparent distress. SKIN: Cool and dry. No rash or ecchymoses. Edematous HEAD: Atraumatic. Normocephalic. EYES: Pupils equal round and reactive. No scleral icterus. No injection or drainage. ENT: Intubated orally. NO nasal drainage NECK: Trachea midline. Supple, nontender, no meningeal signs. CARDIOVASCULAR: HS audible. RESPIRATORY: Clear to auscultation. Breath sounds equal bilaterally but decreased in the bases. GASTROINTESTINAL: Abdomen soft, Ostomy bag with dark green liquid stool. BRANDEN drain x 1, left drain with greyish drainage. Midline sutures now with open area, packed with wet to dry dressing in place. Rest of sutures in place, has a very small amount of purulence in upper incision. MUSCULOSKELETAL: Extremities without clubbing, cyanosis. Pedal and hand edema noted. NEUROLOGICAL: Eyes open, not following Psych could not be assessed IV line sites with no e.o infection. Has RIJ TLC and LSC vascath Assessment & Plan Remarks Possible new sepsis. Elevated WBC count and fever. Secondary peritonitis due to small bowel perforation s/p Enterotomy and washout , has an end ileostomy Abdominal wound infection E.cloacae. S/P robotic splenic flexure takedown on 09/07/17 S/P cystoscopy with bilateral ureteroscopies on 09/07/2017 Thrombocytopenia: sepsis, DIC - seems to have plateau Acute renal failure: prerenal, sepsis. Recs: Continue Meropenem IV (ASP: worsening infection while on BSA) Continue Levaquin to cover for possible Steno malto etc pending cultures. Continue Micafungin IV DC Vanco IV (ARF avoid nephrotoxins) Follow cultures to cover for me this weekend and to cover 09/24/17 and . Lu Orozco MD Sep 21, 2017 12:51
[2017-09-21] MEDS: HEPARIN SODIUM - IV 10,000 UNITS/10 ML VIAL PRN (14:02)
[2017-09-21] MEDS: GENTAMICIN SULFATE 20 MG/2 ML VIAL OTHER PRN (14:02)
--- NOTE | 2017-09-21 14:24 | PD.WCN.NOT ---
Wound Consult Description: New ostomy teaching ordered by Communicated with: ANDREZ Courtney (dialysis) Patient Recommendation: Monitor ileostomy color and output Q4H Empty pouch when 1/3-1/2 full Change ostomy pouching system every 3-5 days and PRN for leaking Additional Information: Patient seen on [facility] during his dialysis for ostomy assessment and emptying of pouch. Ostomy Type: Ileostomy Surgeon: Ivory Mcclellan MD Date of Surgery: Sep 11, 2017 Educated patient on: Introduced self to patient and explained plan for visualization of stoma and pouch emptying. Additional information Stoma is located on the right side abdomen. Ileostomy is red, oval, moist, protruding, functioning with dark green effluent that was emptied by development writer and left in bathroom for I&O's and communicated with Roz at bedside performing dialysis treatment. Ostomy pouching system is intact and noted without leaks. Supplies ordered for next ostomy pouching system change. Patient will be seen by development writer on Sunday09/24/17 for ostomy assessment and teaching. Marie Schroeder [facility] Sep 21, 2017 14:24
[2017-09-21] MEDS: MICAFUNGIN INJ 150 MG in SODIUM CHLORIDE 0.9% INJ 100 ML IV SCH (17:54)
--- NOTE | 2017-09-21 19:58 | HHI.CCPN ---
Subjective Remarks/Hospital Course 67-year-old very pleasant gentleman initially admitted for same day surgery for polyp removal. Due to some complications in the OR he required a colonoscopy during the surgery and now he is postop day 4 status post robotic ascending colectomy. He also required bilateral ureteral catheter placement by urology. Postoperatively he was given Toradol, received 12 doses. He is now on IVF, urine output is very low and he has cola colored urine. He continues to be profoundly acidotic and the x-ray today shows pneumoperitoneum that is new compared to previous images. The patient's surgeon Dr. Mcclellan is at the bedside and she is taking him immediately to operating room for a revision. The patient during my exam is not in distress. 09/12: Remains very critical in septic shock. CVVH started yesterday. Remains on Levophed, dontrell-synephrine and and vasopressin plus stress dose steroids. s/p Small bowel enterotomy with leakage of small bowel contents, s/p diverting ileostomy. WBC up to 19.5, platelet count 64 today 09/13: Continues to be intubated remains critical but slight improvement in hemodynamics. Levophed is down to 12 mcg/m remains on vasopressin. Dontrell- Synephrine was restarted overnight currently at 60 mcg/m but will wean to DC. Platelet count further down now 45 most likely from sepsis and consumption. Check hit screen. CVVH filter clot transitioning to hemodialysis today. Appreciate ID consult. WBC count is up to 25.2 today Subjective 09/14: Afebrile. Currently only on vasopressin to maintain mean arterial pressure greater than equal to 65. Norepinephrine is been discontinued along with Dontrell-Synephrine. Platelets currently 31. LDH, haptoglobin and peripheral smear pending. No bleeding apparent. 09/15: May need to replace HD catheter, flow sluggish. Tapering vasopressors but platelets remain low. 09/16. Platelet count 56,[address] new hemodialysis catheter. Unfortunately there are no access it is available in the neck. Examination of the groins reveals that the areas are much too contaminated to allow for line placement. The only sites available are subclavian approach. I have discussed this with Dr. Breen and he agrees to proceed with subclavian placement. This should not be a situation requiring long-term hemodialysis. MAURICE panel negative. 09/17: Remains intubated sedated, new hemodialysis catheter placed today. Plan for hemodialysis today. WBC count 11.9 to 18.4 today, but patient remains on stress dose steroids. Start weaning hydrocortisone. Urine output remains minimal. Platelet count improving 66 today 09/18: Remains critical remains hemodynamically stable but increasing brownish thick output from the bilateral BRANDEN drains. Midline incision with some eschar formation Dr. Mcclellan made aware. CT of the abdomen pelvis stat to rule out abscess/fluid collections. CBC and CMP are pending today 09/19: Remains intubated off sedation patient able to follow commands but significant muscular weakness especially lower extremities. Off pressors. He remains oliguric to anuric. CT abdomen pelvis did not show any drainable fluid collections. CBC starting to trend down 16.6 to 13.8. Will discontinue stress dose steroids today 09/20: Wakes up easily on low dose propofol. Plan for HD with fluid removal today. Hemodynamically stable. Urine output 120 mL in 24 hours. Hb 7.6 yesterday, will repeat am. no transfusion at this time. Possible extubation today after hemodialysis 09/21: hypoxia improving. remains in shock on multiple vasopressors and inotropes. critically ill. Objective Vital Signs Date Time Temp Pulse Resp B/P (MAP) Pulse Ox O2 Delivery O2 Flow Rate FiO2 09/21/17 18:00 66 09/21/17 16:15 98 40 09/21/17 16:00 97.9 21 159/59 (92) 09/20/17 15:53 BiPAP/CPAP Intake and Output 09/21/17 09/21/17 09/22/17 08:00 16:00 00:00 Intake Total 120 ml 450 ml 72 ml Output Total 215 ml 100 ml 3380 ml Balance -95 ml 350 ml -3308 ml Result Diagram: 09/21/17 0500 09/21/17 0500 Imaging Last Impressions Chest X-Ray 09/14/17 0600 Signed Impressions: Service Date/Time: Thursday, September 14, 2017 03:40 - CONCLUSION: No significant interval change. Persistent left lower lobe atelectasis versus consolidation and mild hazy bilateral lung opacity. Valeriy Gagnon MD Abdomen X-Ray 09/13/17 0000 Signed Impressions: Service Date/Time: September 10:52 - CONCLUSION: Gastric tube tip and side-port project over the stomach. Andrés Gardner MD Renal Ultrasound 09/10/17 0000 Signed Impressions: Service Date/Time: Sunday, September 10, 2017 15:17 - CONCLUSION: No evidence of mass or hydronephrosis. Andrés Gardner MD Objective Remarks GENERAL: 67-year-old male currently orotracheally intubated SKIN: Warm and dry. See GI exam for abdominal incision HEAD: Normocephalic. EYES: MARIO. EOMI. ENT: Orotracheally intubated. . NECK: Supple, trachea midline. Right IJ cordis with dual-lumen catheter is clean dry and intact. Left subclavian hemodialysis catheter in place, CDI CARDIOVASCULAR: Regular rate and rhythm. No JVD. on dobutamine at 2 mcg/min, vasopressin at 0.04 units/min. RESPIRATORY: Breath sounds equal bilaterally. prvc, peep 8, fio2 60%. GASTROINTESTINAL: Abdominal binder in place. Ileostomy pink, bilateral BRANDEN drains with light brown thick secretions. Midline incision with some eschar formation MUSCULOSKELETAL: With 1+ bilateral lower extremity edema NEURO EXAM: RASS -2. following commands on sedation hold. Line: Central Venous Catheter Side: Left Location: Internal, Jugular A/P Assessment and Plan Neuro: Toxic metabolic encephalopathy CIM Off all sedation. severe neuromuscular weakness persists PT/OT daily Use propofol and fentanyl for sedation and ventilator synchrony Encephalopathy improving Resp Acute hypoxemic respiratory failure- recurrent, persistent. HCAP Ventilator bundle. Albuterol/ipratropium aerosols every 6 hours with albuterol aerosols every 2. hours as needed dyspnea will need tracheostomy for long-term weaning. nearly coded from trial of extubation due to severe deconditioning and hypoxia. will discuss trach with . Continue fluid removal with hemodialysis CVS: Severe septic shock-persistent Lactic acidosis Fluid overload A fib with RVR, now NSR Coronary disease status post stent times 07/2015 History of hypertension History of dyslipidemia -s/p Aggressively fluid resuscitated, now getting fluid removed by hemodialysis -back on vasopressin and dobutamine. will wean slowly as tolerated. -Holding aspirin 81 mg by mouth daily with low platelet, Resume once consistently >90 -DCd Amiodarone drip at 0.5 mcg/min, started Coreg 3.125 mg bid on 09/18/17. Cannot anticoagulate due to recent surgery and thrombocytopenia. Subcu heparin start 09/19 -2D echocardiogram 09/13 - left ventricular systolic function normal with an estimated ejection fraction in the range of 50-55%. No definite regional wall motion abnormalities. There is mild tricuspid regurgitation. PASP 44 mmHg. -On hydrocortisone sodium 50 q8 -DCd 09/19 Renal//FEN Acute kidney failure Hyponatremia -Most likely secondary to ATN/septic shock -Nephrology Dr. Zhu following, CVVH started 09/11/17, transitioned to IHD 09/13 ->10 L removed with hemodialysis 09/17, 09/18,09/19. HD again today. -Left subclavian Vas-Cath paced 09/16/17 GI/ID Small bowel enterotomy with leakage of small bowel contents, status post ex lap s/p diverting ileostomy POD 7 Peritonitis with septic shock -Status post ascending colectomy 09/07 pod 12 -Status post ex lap irrigation and diverting ileostomy for small bowel perforation pod 9 -CT abdomen pelvis to rule out abscess formation-negative for fluid collection -Continue Continue Cefepime IV, Diflucan, Flagyl IV per ID -Post op Management per Dr. Mcclellan general surgery -Blood cx 09/13 Enterobacter pansensitive, fluid culture 09/17 Enterobacter pansensitive HEME: Leukocytosis Normocytic anemia Thrombocytopenia-improving -Monitor CBC, coags -Thrombocytopenia secondary to sepsis, DIC -f/u LDH, haptoglobin and peripheral smear -Hematology following -Resumed sq Heparin, 09/20, HIT screen negative panel ENDO: Hyperglycemia History of gout Hypothyroidism Sliding scale insulin with NovoLog to maintain euglycemia/low regimen every 6 hours Holding allopurinol 100 mg by mouth daily for gout/home medication Levothyroxine 50 mcg by tube daily. IV levothyroxine limited to myxedema coma only at [place] due to nationwide shortage DVT GI prophylaxis -Luis M's and SCDs -Subcu heparin-resumed 09/20 -Famotidine Overall impression: Critically ill with persistent sepsis and respiratory failure. Acute kidney injury with requiring hemodialysis. Prognosis guarded. will need long-term weaning due to severe respiratory weakness. Critical care time: 33 minutes, exclusive of separately billable procedures. Sathya Bowling MD Sep 21, 2017 19:58
[2017-09-21] MEDS: LEVOFLOXACIN 500 MG PREMIX INJ 100 ML IV SCH (21:35)
--- NOTE | 2017-09-21 22:39 | HHI.PR ---
Subjective Remarks Remains intubated. No N or V.. Feeds at 10 cc/hr. On CPAP all day. Objective Vital Signs Date Time Temp Pulse Resp B/P (MAP) Pulse Ox O2 Delivery O2 Flow Rate FiO2 09/21/17 22:00 81 09/21/17 20:00 40 09/21/17 20:00 76 09/21/17 20:00 98.0 82 20 150/58 (88) 99 09/21/17 19:43 99 40 09/21/17 18:00 66 09/21/17 16:15 98 40 09/21/17 16:00 84 09/21/17 16:00 97.9 84 21 159/59 (92) 98 09/21/17 16:00 40 09/21/17 15:00 101/52 09/21/17 14:00 89 09/21/17 12:00 71 09/21/17 12:00 40 09/21/17 12:00 98.1 76 22 134/54 (80) 99 09/21/17 11:43 94 40 09/21/17 10:00 74 09/21/17 08:45 40 09/21/17 08:44 99 40 09/21/17 08:00 98.2 70 19 140/60 (86) 99 09/21/17 08:00 40 09/21/17 08:00 70 09/21/17 06:00 76 09/21/17 04:17 100 60 09/21/17 04:00 70 09/21/17 04:00 99.5 80 19 164/72 (102) 100 09/21/17 04:00 80 09/21/17 02:44 85 176/75 09/21/17 02:00 80 09/21/17 00:00 70 09/21/17 00:00 99.5 82 19 184/76 (112) 99 09/21/17 00:00 82 09/20/17 23:46 98 70 I/O 09/20/17 09/20/17 09/20/17 09/21/17 09/21/17 09/21/17 07:00 15:00 23:00 07:00 15:00 23:00 Intake Total 210 ml 200 ml 3100 ml 120 ml 622 ml Output Total 320 ml 5000 ml 95 ml 215 ml 100 ml 3380 ml Balance -110 ml -4800 ml 3005 ml -95 ml -100 ml -2758 ml IV Total 200 ml 3100 ml 550 ml Tube Feeding 60 ml 72 ml Other 150 ml 120 ml Output Urine Total 100 ml 20 ml 40 ml 20 ml Stool Total 200 ml 75 ml 125 ml 100 ml 10 ml Drainage Total 20 ml 50 ml 50 ml Hemodialysis 5000 ml 3300 ml # Bowel Movements 2 2 Result Diagram: 09/21/17 0500 09/21/17 0500 Objective Remarks VS-S Abd: soft,stoma pink Assessment and Plan Assessment and Plan Stable Per Clinic Specialist,Renal Michele Seay MD Sep 21, 2017 22:39
[2017-09-22] VITALS (18 sets, daily range): BP systolic 108–171; BP diastolic 51–64; PULSE 68–88; RESP 18–23; TEMP 97.9–98.8; O2SAT 99–100
[2017-09-22] MEDS: MEROPENEM INJ 1,000 MG in SODIUM CHLORIDE 0.9% INJ 100 ML IV SCH ×2 (01:38→11:11)
[2017-09-22] MEDS: HEPARIN SODIUM - SQ 10,000 UNITS/ML VIAL SQ SCH ×2 (03:00→16:41)
[2017-09-22 05:22] LABS: HEMATOCRIT 21.9 % (39.0-51.0); HEMOGLOBIN 7.5 GM/DL (13.0-17.0); MEAN CELL VOLUME 88.2 FL (80.0-100.0); MEAN CORPUSCULAR HEMOGLOBIN 30.1 PG (27.0-34.0); MEAN CORPUSCULAR HGB CONC 34.1 % (32.0-36.0); MEAN PLATELET VOLUME 9.4 FL (7.0-11.0); PLATELET COUNT 125 TH/MM3 (150-450); RED BLOOD COUNT 2.49 MIL/MM3 (4.50-5.90); RED CELL DISTRIBUTION WIDTH 14.5 % (11.6-17.2); WHITE BLOOD COUNT 13.1 TH/MM3 (4.0-11.0)
[2017-09-22 05:53] LABS: BICARBONATE 22.7 MEQ/L (21.0-32.0); CALCIUM 8.2 MG/DL (8.5-10.1); CREATININE 5.73 MG/DL (0.60-1.30)
[2017-09-22] MEDS: LEVOTHYROXINE SODIUM 50 MCG TAB PO SCH (06:00)
[2017-09-22] MEDS: METOCLOPRAMIDE HCL 10 MG/2 ML VIAL IV PUSH SCH ×3 (06:00→21:38)
[2017-09-22] MEDS: INSULIN ASPART SUPPLEMENTAL SCALE SQ SCH ×4 (06:00→17:51)
[2017-09-22] MEDS: ARTIFICIAL TEARS OPTH SOLN 15 ML BTL EACH EYE SCH ×3 (06:00→21:38)
[2017-09-22] MEDS: METOPROLOL SUCCINATE 25 MG EXTENDED RELEASE TAB PO SCH (09:00)
[2017-09-22] MEDS: PANTOPRAZOLE SODIUM 40 MG VIAL IVP SCH (09:23)
[2017-09-22] MEDS: CHOLECALCIFEROL (VIT D3) LIQ 400 UNITS/ML 50 ML BOTTLE PO SCH (09:24)
[2017-09-22] MEDS: amLODIPine BESYLATE 5 MG TAB PO SCH (09:30)
--- NOTE | 2017-09-22 10:14 | HHI.NPPN ---
Subjective General Problems: Anemia, Edema Renal Failure: Acute Interval History He is getting daily dialysis. Highly catabolic. Oliguric. Review of Systems General General Remarks unable to evaluate Objective Data Data Vital Signs Date Time Temp Pulse Resp B/P (MAP) Pulse Ox O2 Delivery O2 Flow Rate FiO2 09/22/17 09:55 100 40 09/22/17 08:00 40 09/22/17 06:00 81 09/22/17 04:00 97.9 76 18 150/59 (89) 100 09/22/17 04:00 40 09/22/17 04:00 76 09/22/17 03:49 100 40 09/22/17 02:00 83 09/22/17 01:31 100 40 09/22/17 00:00 40 09/22/17 00:00 97.9 82 18 150/58 (88) 99 09/22/17 00:00 82 09/21/17 22:00 81 09/21/17 20:00 40 09/21/17 20:00 76 09/21/17 20:00 98.0 82 20 150/58 (88) 99 09/21/17 19:43 99 40 09/21/17 18:00 66 09/21/17 16:15 98 40 09/21/17 16:00 84 09/21/17 16:00 97.9 84 21 159/59 (92) 98 09/21/17 16:00 40 09/21/17 15:00 101/52 09/21/17 14:00 89 09/21/17 12:00 71 09/21/17 12:00 40 09/21/17 12:00 98.1 76 22 134/54 (80) 99 09/21/17 11:43 94 40 -: 09/22/17 0515 09/22/17 0515 Tubes & Lines: Perma-Cath, Canela Tubes & Lines Comment TLC right IJ VC left IJ A line ileostomy RLQ BRANDEN drains x 2 abd Drip Comment vasopressin, dobutamine Physical Exam General Appearance: Well Developed, Comfortable Throat Throat Exam: Oral Mucosa [place] & Moist Neck Neck Exam: Neck Supple Pulmonary Resp Exam: Breath Sounds Equal, No Distress, Decreased Bases Cardiology CV Exam: Regular, Normal Sinus Rhythm Gastrointestinal/Abdomen GI Exam: Soft, Positive Bowel Movement, Distended, Bowel Sounds Hypoactive Musculoskeletal MS Exam: Joints Intact, Good Strength, Unable to Ambulate Integumentary Skin Exam: Warm, Dry, Intact Extremeties Extremities Exam: Pedal Pulses Palpable, Moderate Edema Neurologic Neuro Exam: Alert, Awake Psychiatric Psych Exam: Appropriate Responses VTE Prophylaxis Device: SCDs Assessment/Plan Discussed Condition With: Spouse Assessment Summary: JOSEF/Acute Renal Failure, Acute Tubular Necrosis, Hypotension Electrolyte Assessment: Hypocalcemia Problem List: (1) JOSEF (acute kidney injury) ICD Codes: N17.9 - Acute kidney failure, unspecified Plan: His renal function is normal at baseline Oliguric renal failure, ATN, secondary to sepsis On CRRT from 09/11-09/12. Has been on daily HD since 09/13. HD today, 3L goal. Monitor urine output, likely needs dialysis again today. On calcium acetate TID, monitor phosphorus level. No need for dobutamine or vasopressin if he is hemodynamically stable. (2) S/P partial colectomy ICD Codes: Z90.49 - Acquired absence of other specified parts of digestive tract Plan: He developed small bowel perforation after robotic surgery, s/p emergent ex lap with I&D 09/11 Management per surgery and CCM has ileostomy that is draining Continue supportive care for sepsis and renal failure Prognosis is guarded. (3) Sepsis ICD Codes: A41.9 - Sepsis, unspecified organism Plan: Due to above ID following, antibiotics changed, include Levaquin, meropenem, and micafungin. Off cefepime, fluconazole, Flagyl monitor drug levels when appropriate I (4) Hypocalcemia ICD Codes: E83.51 - Hypocalcemia Plan: On liquid vitamin D for deficiency Nish Zhu MD Sep 22, 2017 10:14
[2017-09-22] MEDS: CARVEDILOL 3.125 MG TAB PO SCH ×3 (11:10→21:38)
--- NOTE | 2017-09-22 12:43 | HHI.IDPN ---
Subjective Subjective Remarks ID X cover chart was reviewed is a 67 y/o CM with PMHx significant for CAD, s/p PCI and stents. He was repeatedly diagnosed with sessile polyp and underwent exploratory laparoscopy with robotic takedown of splenic flexure, colonoscopy with tattooing and robotic ascending colectomy on 09/07/17 by . Reportedly, the urine output was low and urology was consulted when despite IVF urine output did not increase. Patient was seen by and underwent cystoscopy and bilateral ureteral catheter insertion with 500 cc of urine obtained. During the hospital stay patient subsequently had abdominal distention and despite NG tube to suction continued to have worsening distention and discomfort. A KUB done earlier on the day of CT on 09/11/2017 was negative for free air but subsequent imaging showed free air so patient was emergently taken to the OR by . Patient was found to have a small bowel defect and large amounts of of bowel contents were visible in peritoneum per op note. Critical Care was consulted and patient is currently being treated for Septic Shock with multiple pressors, IVF boluses given yday. He had low urine output and Nephrology is on the case and CVVHD initiated. Patient had issues with clotting of access line so CVVHD has been interrupted off and on. Patient is currently intubated on a ventilator. Not much resp secretions. Ileostomy output ok. Platelets have been low but no obvious bleeding from any sites. Patient remains sedated on vent. Patient has been started on empiric antibiotics Zosyn IV, Vanco IV x 1 dose, Flagyl IV, Micafungin IV. Left IJ Vascath placed on 09/11/2017 ID consulted for evaluation and Mment of Septic Shock, Secondary peritonitis. Overnight events reviewed with RN juan on vent trach is planned afebrile WBC going down still on HD low UOP Antibiotics Meropenem IV Levaquin IV Vanco IV micafungin Lines Line sites with no e.o infection Past Medical History reviewed Allergies: Coded Allergies: No Known Allergies (Unverified Allergy, Unknown, 09/07/17) Objective . Vital Signs Date Time Temp Pulse Resp B/P (MAP) Pulse Ox O2 Delivery O2 Flow Rate FiO2 09/22/17 10:00 81 09/22/17 09:55 100 40 09/22/17 08:00 40 09/22/17 08:00 98.8 78 19 162/62 (95) 99 09/22/17 08:00 78 09/22/17 06:00 81 09/22/17 04:00 97.9 76 18 150/59 (89) 100 09/22/17 04:00 40 09/22/17 04:00 76 09/22/17 03:49 100 40 09/22/17 02:00 83 09/22/17 01:31 100 40 09/22/17 00:00 40 09/22/17 00:00 97.9 82 18 150/58 (88) 99 09/22/17 00:00 82 09/21/17 22:00 81 09/21/17 20:00 40 09/21/17 20:00 76 09/21/17 20:00 98.0 82 20 150/58 (88) 99 09/21/17 19:43 99 40 09/21/17 18:00 66 09/21/17 16:15 98 40 09/21/17 16:00 84 09/21/17 16:00 97.9 84 21 159/59 (92) 98 09/21/17 16:00 40 09/21/17 15:00 101/52 09/21/17 14:00 89 . Laboratory Tests Test 09/20/17 14:10 09/21/17 05:00 09/22/17 05:15 White Blood Count 25.9 TH/MM3 18.6 TH/MM3 13.1 TH/MM3 Red Blood Count 3.22 MIL/MM3 2.74 MIL/MM3 2.49 MIL/MM3 Hemoglobin 9.6 GM/DL 8.3 GM/DL 7.5 GM/DL Hematocrit 28.5 % 24.2 % 21.9 % Mean Corpuscular Volume 88.4 FL 88.3 FL 88.2 FL Mean Corpuscular Hemoglobin 29.7 PG 30.1 PG 30.1 PG Mean Corpuscular Hemoglobin Concent 33.6 % 34.1 % 34.1 % Red Cell Distribution Width 14.4 % 14.5 % 14.5 % Platelet Count 145 TH/MM3 117 TH/MM3 125 TH/MM3 Mean Platelet Volume 10.2 FL 9.6 FL 9.4 FL Neutrophils (%) (Auto) 92.4 % 86.0 % Lymphocytes (%) (Auto) 1.5 % 3.4 % Monocytes (%) (Auto) 5.8 % 10.1 % Eosinophils (%) (Auto) 0.1 % 0.1 % Basophils (%) (Auto) 0.2 % 0.4 % Neutrophils # (Auto) 23.9 TH/MM3 16.0 TH/MM3 Lymphocytes # (Auto) 0.4 TH/MM3 0.6 TH/MM3 Monocytes # (Auto) 1.5 TH/MM3 1.9 TH/MM3 Eosinophils # (Auto) 0.0 TH/MM3 0.0 TH/MM3 Basophils # (Auto) 0.1 TH/MM3 0.1 TH/MM3 CBC Comment AUTO DIFF AUTO DIFF Differential Total Cells Counted 100 Neutrophils % (Manual) 89 % Lymphocytes % 1 % Monocytes % 7 % Basophils % 1 % Neutrophils # (Manual) 23.6 TH/MM3 Metamyelocytes 2 % Differential Comment FINAL DIFF MANUAL AUTO DIFF CONFIRMED Toxic Granulation 2+ 1+ Dohle Bodies PRESENT PRESENT Platelet Estimate LOW LOW Platelet Morphology Comment NORMAL NORMAL Laboratory Tests Test 09/21/17 05:00 09/22/17 05:15 Blood Urea Nitrogen 93 MG/DL 99 MG/DL Creatinine 5.38 MG/DL 5.73 MG/DL Random Glucose 137 MG/DL 105 MG/DL Total Protein 5.8 GM/DL Albumin 2.0 GM/DL Calcium Level 7.8 MG/DL 8.2 MG/DL Alkaline Phosphatase 75 U/L Aspartate Amino Transf (AST/SGOT) 28 U/L Alanine Aminotransferase (ALT/SGPT) 34 U/L Total Bilirubin 2.2 MG/DL Sodium Level 143 MEQ/L 141 MEQ/L Potassium Level 4.3 MEQ/L 3.8 MEQ/L Chloride Level 105 MEQ/L 103 MEQ/L Carbon Dioxide Level 23.4 MEQ/L 22.7 MEQ/L Anion Gap 15 MEQ/L 15 MEQ/L Estimat Glomerular Filtration Rate 11 ML/MIN 10 ML/MIN Microbiology Date/Time Source Procedure Growth Status 09/20/17 16:39 Blood Peripheral Aerobic Blood Culture - Preliminary NO GROWTH IN 2 DAYS Resulted 09/20/17 16:39 Blood Peripheral Anaerobic Blood Culture - Preliminary NO GROWTH IN 2 DAYS Resulted 09/20/17 16:35 Blood Peripheral Aerobic Blood Culture - Preliminary NO GROWTH IN 2 DAYS Resulted 09/20/17 16:35 Blood Peripheral Anaerobic Blood Culture - Preliminary NO GROWTH IN 2 DAYS Resulted 09/20/17 17:00 Bronchial Washings Right Lower Lobe Fungal Smear - Final NO FUNGAL ELEMENTS SEEN. Resulted 09/20/17 17:00 Bronchial Washings Right Lower Lobe Fungal Culture Pending Resulted 09/20/17 17:00 Bronchial Washings Right Lower Lobe Acid Fast Stain - Final NO ACID FAST BACILLI SEEN Resulted 09/20/17 17:00 Bronchial Washings Right Lower Lobe Mycobacterial Culture Pending Resulted 09/20/17 17:00 Bronchial Washings Right Lower Lobe Gram Stain - Final Resulted 09/20/17 17:00 Bronchial Washings Right Lower Lobe Bronchial Culture - Preliminary RARE GROWTH NORMAL RESPIRATORY ANGEL ... Resulted Imaging Last Impressions Chest X-Ray 09/21/17 0600 Signed Impressions: Service Date/Time: Thursday, September 21, 2017 03:33 - CONCLUSION: Slight interval worsening in aeration Michele Coleman MD Abdomen/Pelvis CT 09/18/17 0000 Signed Impressions: Service Date/Time: Monday, September 18, 2017 15:55 - CONCLUSION: 1. No evidence of intra-abdominal abscess. 2. Small bilateral pleural effusions with adjacent alveolar consolidations consistent with compressive atelectasis or pneumonia. Clinical correlation is recommended. 3. Cholelithiasis. 4. 8.5 cm right renal cyst. 5. Degenerative changes and scoliosis of the thoraco-lumbar spine. 6. 2 low-density lesions within the liver measuring 1.8 cm in the right dome and 1.2 cm in the inferior right lobe which are indeterminate on this unenhanced examination. 7. Cardiomegaly and coronary artery calcification noted. Edwin Marie MD Liver Ultrasound 09/15/17 0000 Signed Impressions: Service Date/Time: Friday, September 15, 2017 07:34 - CONCLUSION: The liver appears mildly enlarged and decreased in echogenicity concerning for edema. The gallbladder is distended with sludge. No discrete stones are visualized. There is mild wall thickening of the gallbladder present. The spleen is overall normal in size and grossly normal in echotexture. Small amount of free fluid seen adjacent to the spleen. Vida Levine MD Abdomen X-Ray 09/13/17 0000 Signed Impressions: Service Date/Time: September 10:52 - CONCLUSION: Gastric tube tip and side-port project over the stomach. Andrés Gardner MD Renal Ultrasound 09/10/17 0000 Signed Impressions: Service Date/Time: Sunday, September 10, 2017 15:17 - CONCLUSION: No evidence of mass or hydronephrosis. Andrés Gardner MD Physical Exam GENERAL: This is a well-nourished, well-developed patient, in no apparent distress. SKIN: Cool and dry. No rash or ecchymoses. Edematous HEAD: Atraumatic. Normocephalic. EYES: Pupils equal round and reactive. No scleral icterus. No injection or drainage. ENT: Intubated orally. NO nasal drainage NECK: Trachea midline. Supple, nontender, no meningeal signs. CARDIOVASCULAR: HS audible. RESPIRATORY: Clear to auscultation. Breath sounds equal bilaterally but decreased in the bases. GASTROINTESTINAL: Abdomen soft, Ostomy bag with dark green liquid stool. BRANDEN drain x 1, left drain with greyish drainage. Midline sutures now with open area, packed with wet to dry dressing in place. Rest of sutures in place, has a very small amount of purulence in upper incision Margins are poorly approxinmated MUSCULOSKELETAL: Extremities without clubbing, cyanosis. Pedal and hand edema noted. : small amopunt of dark urine in urinary bag NEUROLOGICAL: Eyes open, not following Psych could not be assessed IV line sites with no e.o infection. Has RIJ TLC and LSC vascath Assessment & Plan Remarks Possible new sepsis. Elevated WBC count and fever. Secondary peritonitis due to small bowel perforation s/p Enterotomy and washout , has an end ileostomy Abdominal wound infection E.cloacae. S/P robotic splenic flexure takedown on 09/07/17 S/P cystoscopy with bilateral ureteroscopies on 09/07/2017 Thrombocytopenia: sepsis, DIC - seems to have plateau Acute renal failure: prerenal, sepsis. Pulmonary infiltrate, BAL with nl resp angel Recs: Continue Meropenem IV (ASP: worsening infection while on BSA) - will consider to switch to zosyn if no new isolates on clx dc Levaquin to cover for possible Steno malto etc pending cultures. Continue Micafungin IV DC Vanco IV (ARF avoid nephrotoxins) Follow cultures dw Tara Bhakta MD Sep 22, 2017 12:43
--- NOTE | 2017-09-22 12:44 | HHI.PR ---
Subjective Remarks Remains intubated. No N or V. Awake alert. Off pressors. For trach soon. Objective Vital Signs Date Time Temp Pulse Resp B/P (MAP) Pulse Ox O2 Delivery O2 Flow Rate FiO2 09/22/17 10:00 81 09/22/17 09:55 100 40 09/22/17 08:00 40 09/22/17 08:00 98.8 78 19 162/62 (95) 99 09/22/17 08:00 78 09/22/17 06:00 81 09/22/17 04:00 97.9 76 18 150/59 (89) 100 09/22/17 04:00 40 09/22/17 04:00 76 09/22/17 03:49 100 40 09/22/17 02:00 83 09/22/17 01:31 100 40 09/22/17 00:00 40 09/22/17 00:00 97.9 82 18 150/58 (88) 99 09/22/17 00:00 82 09/21/17 22:00 81 09/21/17 20:00 40 09/21/17 20:00 76 09/21/17 20:00 98.0 82 20 150/58 (88) 99 09/21/17 19:43 99 40 09/21/17 18:00 66 09/21/17 16:15 98 40 09/21/17 16:00 84 09/21/17 16:00 97.9 84 21 159/59 (92) 98 09/21/17 16:00 40 09/21/17 15:00 101/52 09/21/17 14:00 89 I/O 09/21/17 09/21/17 09/21/17 09/22/17 09/22/17 09/22/17 07:00 15:00 23:00 07:00 15:00 23:00 Intake Total 120 ml 622 ml 142 ml Output Total 215 ml 100 ml 3380 ml 860 ml Balance -95 ml -100 ml -2758 ml -718 ml IV Total 550 ml Tube Feeding 72 ml 82 ml Other 120 ml 60 ml Output Urine Total 40 ml 20 ml 20 ml Stool Total 125 ml 100 ml 10 ml 800 ml Drainage Total 50 ml 50 ml 40 ml Hemodialysis 3300 ml # Bowel Movements 2 2 1 Result Diagram: 09/22/1751409/22/17514 Objective Remarks VS-S Abd: softer,stoma pink,working Assessment and Plan Assessment and Plan Stable. Possible trach soon Per Telecom Sales Consultant,Renal Michele Seay MD Sep 22, 2017 12:44
[2017-09-22] MEDS: HYDROmorphone HCL PF 2 MG/ML VIAL IV PRN (13:12)
[2017-09-22] MEDS: hydrALAZINE HCL 20 MG/ML VIAL IV PUSH PRN (13:41)
--- NOTE | 2017-09-22 14:48 | HHI.CCPN ---
Subjective Remarks/Hospital Course 67-year-old very pleasant gentleman initially admitted for same day surgery for polyp removal. Due to some complications in the OR he required a colonoscopy during the surgery and now he is postop day 4 status post robotic ascending colectomy. He also required bilateral ureteral catheter placement by urology. Postoperatively he was given Toradol, received 12 doses. He is now on IVF, urine output is very low and he has cola colored urine. He continues to be profoundly acidotic and the x-ray today shows pneumoperitoneum that is new compared to previous images. The patient's surgeon Dr. Mcclellan is at the bedside and she is taking him immediately to operating room for a revision. The patient during my exam is not in distress. 09/12: Remains very critical in septic shock. CVVH started yesterday. Remains on Levophed, dontrell-synephrine and and vasopressin plus stress dose steroids. s/p Small bowel enterotomy with leakage of small bowel contents, s/p diverting ileostomy. WBC up to 19.5, platelet count 64 today 09/13: Continues to be intubated remains critical but slight improvement in hemodynamics. Levophed is down to 12 mcg/m remains on vasopressin. Dontrell- Synephrine was restarted overnight currently at 60 mcg/m but will wean to DC. Platelet count further down now 45 most likely from sepsis and consumption. Check hit screen. CVVH filter clot transitioning to hemodialysis today. Appreciate ID consult. WBC count is up to 25.2 today Subjective 09/14: Afebrile. Currently only on vasopressin to maintain mean arterial pressure greater than equal to 65. Norepinephrine is been discontinued along with Dontrell-Synephrine. Platelets currently 31. LDH, haptoglobin and peripheral smear pending. No bleeding apparent. 09/15: May need to replace HD catheter, flow sluggish. Tapering vasopressors but platelets remain low. 09/16. Platelet count 56,[address] new hemodialysis catheter. Unfortunately there are no access it is available in the neck. Examination of the groins reveals that the areas are much too contaminated to allow for line placement. The only sites available are subclavian approach. I have discussed this with Dr. Breen and he agrees to proceed with subclavian placement. This should not be a situation requiring long-term hemodialysis. MAURICE panel negative. 09/17: Remains intubated sedated, new hemodialysis catheter placed today. Plan for hemodialysis today. WBC count 11.9 to 18.4 today, but patient remains on stress dose steroids. Start weaning hydrocortisone. Urine output remains minimal. Platelet count improving 66 today 09/18: Remains critical remains hemodynamically stable but increasing brownish thick output from the bilateral BRANDEN drains. Midline incision with some eschar formation Dr. Mcclellan made aware. CT of the abdomen pelvis stat to rule out abscess/fluid collections. CBC and CMP are pending today 09/19: Remains intubated off sedation patient able to follow commands but significant muscular weakness especially lower extremities. Off pressors. He remains oliguric to anuric. CT abdomen pelvis did not show any drainable fluid collections. CBC starting to trend down 16.6 to 13.8. Will discontinue stress dose steroids today 09/20: Wakes up easily on low dose propofol. Plan for HD with fluid removal today. Hemodynamically stable. Urine output 120 mL in 24 hours. Hb 7.6 yesterday, will repeat am. no transfusion at this time. Possible extubation today after hemodialysis 09/21: hypoxia improving. remains in shock on multiple vasopressors and inotropes. critically ill. 09/22: off vasopressors. clinically improving and awake, alert. still failing any weaning attempts. long discussion with and patient, and we all agree trach is the best option for him. will likely plan for Sunday. Objective Vital Signs Date Time Temp Pulse Resp B/P (MAP) Pulse Ox O2 Delivery O2 Flow Rate FiO2 09/22/17 13:50 99 40 09/22/17 12:00 98.5 77 21 171/64 (99) 09/20/17 15:53 BiPAP/CPAP Intake and Output 09/22/17 09/22/17 09/23/17 08:00 16:00 00:00 Intake Total 142 ml Output Total 860 ml Balance -718 ml Result Diagram: 09/22/17 0515 09/22/17 0515 Other Results Microbiology Date/Time Source Procedure Growth Status 09/20/17 17:00 Bronchial Washings Right Lower Lobe Gram Stain - Final Complete 09/20/17 17:00 Bronchial Washings Right Lower Lobe Bronchial Culture - Final LIGHT GROWTH [facility] [place] Complete Imaging Last Impressions Chest X-Ray 09/14/17 0600 Signed Impressions: Service Date/Time: Thursday, September 14, 2017 03:40 - CONCLUSION: No significant interval change. Persistent left lower lobe atelectasis versus consolidation and mild hazy bilateral lung opacity. Valeriy Gagnon MD Abdomen X-Ray 09/13/17 0000 Signed Impressions: Service Date/Time: September 10:52 - CONCLUSION: Gastric tube tip and side-port project over the stomach. Andrés Gardner MD Renal Ultrasound 09/10/17 0000 Signed Impressions: Service Date/Time: Sunday, September 10, 2017 15:17 - CONCLUSION: No evidence of mass or hydronephrosis. Andrés Gardner MD Objective Remarks GENERAL: 67-year-old male currently orotracheally intubated SKIN: Warm and dry. See GI exam for abdominal incision HEAD: Normocephalic. EYES: MARIO. EOMI. ENT: Orotracheally intubated. . NECK: Supple, trachea midline. Right IJ cordis with dual-lumen catheter is clean dry and intact. Left subclavian hemodialysis catheter in place, CDI CARDIOVASCULAR: Regular rate and rhythm. No JVD. RESPIRATORY: Breath sounds equal bilaterally. prvc, peep 8, fio2 40%. GASTROINTESTINAL: Abdominal binder in place. Ileostomy pink, bilateral BRANDEN drains with light brown thick secretions. Midline incision with some eschar formation MUSCULOSKELETAL: With 1+ bilateral lower extremity edema NEURO EXAM: RASS -2. following commands on sedation hold. Line: Central Venous Catheter Side: Left Location: Internal, Jugular A/P Assessment and Plan Neuro: Toxic metabolic encephalopathy CIM Off all sedation. severe neuromuscular weakness persists PT/OT daily Use propofol and fentanyl for sedation and ventilator synchrony Encephalopathy improving Resp Acute hypoxemic respiratory failure- recurrent, persistent. HCAP Ventilator bundle. Albuterol/ipratropium aerosols every 6 hours with albuterol aerosols every 2. hours as needed dyspnea will need tracheostomy for long-term weaning. nearly coded from trial of extubation due to severe deconditioning and hypoxia. plan for trach sunday. Continue fluid removal with hemodialysis CVS: Severe septic shock-persistent Lactic acidosis Fluid overload A fib with RVR, now NSR Coronary disease status post stent times 07/2015 History of hypertension History of dyslipidemia -s/p Aggressively fluid resuscitated, now getting fluid removed by hemodialysis -back on vasopressin and dobutamine. will wean slowly as tolerated. -Holding aspirin 81 mg by mouth daily with low platelet, Resume once consistently >90 -DCd Amiodarone drip at 0.5 mcg/min, started Coreg 3.125 mg bid on 09/18/17. Cannot anticoagulate due to recent surgery and thrombocytopenia. Subcu heparin start 09/19 -2D echocardiogram 09/13 - left ventricular systolic function normal with an estimated ejection fraction in the range of 50-55%. No definite regional wall motion abnormalities. There is mild tricuspid regurgitation. PASP 44 mmHg. -On hydrocortisone sodium 50 q8 -DCd 09/19 Renal//FEN Acute kidney failure Hyponatremia -Most likely secondary to ATN/septic shock -Nephrology Dr. Zhu following, CVVH started 09/11/17, transitioned to IHD 09/13 ->10 L removed with hemodialysis 09/17, 09/18,09/19. HD again today. -Left subclavian Vas-Cath paced 09/16/17 GI/ID Small bowel enterotomy with leakage of small bowel contents, status post ex lap s/p diverting ileostomy POD 7 Peritonitis with septic shock -Status post ascending colectomy 09/07 pod 12 -Status post ex lap irrigation and diverting ileostomy for small bowel perforation pod 9 -CT abdomen pelvis to rule out abscess formation-negative for fluid collection -Continue Continue Cefepime IV, Diflucan, Flagyl IV per ID -Post op Management per Dr. Mcclellan general surgery -Blood cx 09/13 Enterobacter pansensitive, fluid culture 09/17 Enterobacter pansensitive HEME: Leukocytosis Normocytic anemia Thrombocytopenia-improving -Monitor CBC, coags -Thrombocytopenia secondary to sepsis, DIC -f/u LDH, haptoglobin and peripheral smear -Hematology following -Resumed sq Heparin, 09/20, HIT screen negative panel ENDO: Hyperglycemia History of gout Hypothyroidism Sliding scale insulin with NovoLog to maintain euglycemia/low regimen every 6 hours Holding allopurinol 100 mg by mouth daily for gout/home medication Levothyroxine 50 mcg by tube daily. IV levothyroxine limited to myxedema coma only at [place] due to nationwide shortage DVT GI prophylaxis -Luis M's and SCDs -Subcu heparin-resumed 09/20 -Famotidine Overall impression: Critically ill with persistent sepsis and respiratory failure. Acute kidney injury with requiring hemodialysis. Prognosis guarded. will need long-term weaning due to severe respiratory weakness. Sathya Bowling MD Sep 22, 2017 14:48
[2017-09-22] MEDS: MICAFUNGIN INJ 150 MG in SODIUM CHLORIDE 0.9% INJ 100 ML IV SCH (18:00)
[2017-09-22] MEDS: GENTAMICIN SULFATE 20 MG/2 ML VIAL OTHER PRN (20:30)
[2017-09-23] VITALS (17 sets, daily range): BP systolic 126–156; BP diastolic 50–67; PULSE 65–80; RESP 18–23; TEMP 98.3–99; O2SAT 99–100
[2017-09-23] MEDS: MEROPENEM INJ 1,000 MG in SODIUM CHLORIDE 0.9% INJ 100 ML IV SCH ×3 (00:14→23:45)
[2017-09-23] MEDS: HYDROmorphone HCL PF 2 MG/ML VIAL IV PRN (00:15)
[2017-09-23] MEDS: HEPARIN SODIUM - SQ 10,000 UNITS/ML VIAL SQ SCH ×2 (03:00→15:30)
[2017-09-23] MEDS: ARTIFICIAL TEARS OPTH SOLN 15 ML BTL EACH EYE SCH ×3 (05:58→21:51)
[2017-09-23] MEDS: METOCLOPRAMIDE HCL 10 MG/2 ML VIAL IV PUSH SCH ×3 (05:58→21:51)
[2017-09-23] MEDS: INSULIN ASPART SUPPLEMENTAL SCALE SQ SCH ×5 (05:59→23:45)
[2017-09-23] MEDS: LEVOTHYROXINE SODIUM 50 MCG TAB PO SCH (05:59)
[2017-09-23 06:48] LABS: HEMATOCRIT 24.5 % (39.0-51.0); HEMOGLOBIN 8.5 GM/DL (13.0-17.0); MEAN CORPUSCULAR HEMOGLOBIN 30.7 PG (27.0-34.0); MEAN CORPUSCULAR HGB CONC 34.8 % (32.0-36.0); MEAN PLATELET VOLUME 10.1 FL (7.0-11.0); PLATELET COUNT 141 TH/MM3 (150-450); RED BLOOD COUNT 2.79 MIL/MM3 (4.50-5.90); RED CELL DISTRIBUTION WIDTH 14.8 % (11.6-17.2); WHITE BLOOD COUNT 9.6 TH/MM3 (4.0-11.0)
[2017-09-23 07:08] LABS: BICARBONATE 25.5 MEQ/L (21.0-32.0); CALCIUM 8.4 MG/DL (8.5-10.1); CREATININE 5.66 MG/DL (0.60-1.30)
[2017-09-23] MEDS: METOPROLOL SUCCINATE 25 MG EXTENDED RELEASE TAB PO SCH (09:00)
[2017-09-23] MEDS: CHOLECALCIFEROL (VIT D3) LIQ 400 UNITS/ML 50 ML BOTTLE PO SCH (09:00)
[2017-09-23] MEDS: amLODIPine BESYLATE 5 MG TAB PO SCH (09:29)
[2017-09-23] MEDS: CARVEDILOL 3.125 MG TAB PO SCH ×2 (09:29→20:39)
[2017-09-23] MEDS: PANTOPRAZOLE SODIUM 40 MG VIAL IVP SCH (09:29)
--- NOTE | 2017-09-23 10:18 | HHI.CCPN ---
Subjective Remarks/Hospital Course 67-year-old very pleasant gentleman initially admitted for same day surgery for polyp removal. Due to some complications in the OR he required a colonoscopy during the surgery and now he is postop day 4 status post robotic ascending colectomy. He also required bilateral ureteral catheter placement by urology. Postoperatively he was given Toradol, received 12 doses. He is now on IVF, urine output is very low and he has cola colored urine. He continues to be profoundly acidotic and the x-ray today shows pneumoperitoneum that is new compared to previous images. The patient's surgeon Dr. Mcclellan is at the bedside and she is taking him immediately to operating room for a revision. The patient during my exam is not in distress. 09/12: Remains very critical in septic shock. CVVH started yesterday. Remains on Levophed, dontrell-synephrine and and vasopressin plus stress dose steroids. s/p Small bowel enterotomy with leakage of small bowel contents, s/p diverting ileostomy. WBC up to 19.5, platelet count 64 today 09/13: Continues to be intubated remains critical but slight improvement in hemodynamics. Levophed is down to 12 mcg/m remains on vasopressin. Dontrell- Synephrine was restarted overnight currently at 60 mcg/m but will wean to DC. Platelet count further down now 45 most likely from sepsis and consumption. Check hit screen. CVVH filter clot transitioning to hemodialysis today. Appreciate ID consult. WBC count is up to 25.2 today Subjective 09/14: Afebrile. Currently only on vasopressin to maintain mean arterial pressure greater than equal to 65. Norepinephrine is been discontinued along with Dontrell-Synephrine. Platelets currently 31. LDH, haptoglobin and peripheral smear pending. No bleeding apparent. 09/15: May need to replace HD catheter, flow sluggish. Tapering vasopressors but platelets remain low. 09/16. Platelet count 56,[address] new hemodialysis catheter. Unfortunately there are no access it is available in the neck. Examination of the groins reveals that the areas are much too contaminated to allow for line placement. The only sites available are subclavian approach. I have discussed this with Dr. Breen and he agrees to proceed with subclavian placement. This should not be a situation requiring long-term hemodialysis. MAURICE panel negative. 09/17: Remains intubated sedated, new hemodialysis catheter placed today. Plan for hemodialysis today. WBC count 11.9 to 18.4 today, but patient remains on stress dose steroids. Start weaning hydrocortisone. Urine output remains minimal. Platelet count improving 66 today 09/18: Remains critical remains hemodynamically stable but increasing brownish thick output from the bilateral BRANDEN drains. Midline incision with some eschar formation Dr. Mcclellan made aware. CT of the abdomen pelvis stat to rule out abscess/fluid collections. CBC and CMP are pending today 09/19: Remains intubated off sedation patient able to follow commands but significant muscular weakness especially lower extremities. Off pressors. He remains oliguric to anuric. CT abdomen pelvis did not show any drainable fluid collections. CBC starting to trend down 16.6 to 13.8. Will discontinue stress dose steroids today 09/20: Wakes up easily on low dose propofol. Plan for HD with fluid removal today. Hemodynamically stable. Urine output 120 mL in 24 hours. Hb 7.6 yesterday, will repeat am. no transfusion at this time. Possible extubation today after hemodialysis 09/21: hypoxia improving. remains in shock on multiple vasopressors and inotropes. critically ill. 09/22: off vasopressors. clinically improving and awake, alert. still failing any weaning attempts. long discussion with and patient, and we all agree trach is the best option for him. will likely plan for Sunday. 09/23: doing well. awake. alert. denies complaints. ROS negative. Objective Vital Signs Date Time Temp Pulse Resp B/P (MAP) Pulse Ox O2 Delivery O2 Flow Rate FiO2 09/23/17 06:00 80 09/23/17 04:00 40 09/23/17 04:00 98.3 18 134/52 (79) 100 09/20/17 15:53 BiPAP/CPAP Intake and Output 09/23/17 09/23/17 09/24/17 08:00 16:00 00:00 Intake Total 349 ml Output Total 605 ml Balance -256 ml Result Diagram: 09/23/17 0605 09/23/17 0605 Other Results Microbiology Date/Time Source Procedure Growth Status 09/20/17 17:00 Bronchial Washings Right Lower Lobe Gram Stain - Final Complete 09/20/17 17:00 Bronchial Washings Right Lower Lobe Bronchial Culture - Final LIGHT GR[facility]TH [facility] [place] Complete Imaging Last Impressions Chest X-Ray 09/14/17 0600 Signed Impressions: Service Date/Time: Thursday, September 14, 2017 03:40 - CONCLUSION: No significant interval change. Persistent left lower lobe atelectasis versus consolidation and mild hazy bilateral lung opacity. Valeriy Gagnon MD Abdomen X-Ray 09/13/17 0000 Signed Impressions: Service Date/Time: September 10:52 - CONCLUSION: Gastric tube tip and side-port project over the stomach. Andrés Gardner MD Renal Ultrasound 09/10/17 0000 Signed Impressions: Service Date/Time: Sunday, September 10, 2017 15:17 - CONCLUSION: No evidence of mass or hydronephrosis. Andrés Gardner MD Objective Remarks GENERAL: 67-year-old male currently orotracheally intubated SKIN: Warm and dry. See GI exam for abdominal incision HEAD: Normocephalic. EYES: MARIO. EOMI. ENT: Orotracheally intubated. . NECK: Supple, trachea midline. Right IJ cordis with dual-lumen catheter is clean dry and intact. Left subclavian hemodialysis catheter in place, CDI CARDIOVASCULAR: Regular rate and rhythm. No JVD. RESPIRATORY: Breath sounds equal bilaterally. prvc, peep 8, fio2 40%. GASTROINTESTINAL: Abdominal binder in place. Ileostomy pink, bilateral BRANDEN drains with light brown thick secretions. Midline incision with some eschar formation MUSCULOSKELETAL: With 1+ bilateral lower extremity edema NEURO EXAM: RASS 0. following commands. Line: Central Venous Catheter Side: Left Location: Internal, Jugular A/P Assessment and Plan Neuro: Toxic metabolic encephalopathy CIM Off all sedation. severe neuromuscular weakness persists PT/OT daily Use propofol and fentanyl for sedation and ventilator synchrony Encephalopathy improving Resp Acute hypoxemic respiratory failure- recurrent, persistent. HCAP Ventilator bundle. Albuterol/ipratropium aerosols every 6 hours with albuterol aerosols every 2. hours as needed dyspnea will need tracheostomy for long-term weaning. nearly coded from trial of extubation due to severe deconditioning and hypoxia. plan for trach sunday. Continue fluid removal with hemodialysis CVS: Severe septic shock-persistent Lactic acidosis Fluid overload A fib with RVR, now NSR Coronary disease status post stent times 07/2015 History of hypertension History of dyslipidemia -s/p Aggressively fluid resuscitated, now getting fluid removed by hemodialysis -back on vasopressin and dobutamine. will wean slowly as tolerated. -Holding aspirin 81 mg by mouth daily with low platelet, Resume once consistently >90 -DCd Amiodarone drip at 0.5 mcg/min, started Coreg 3.125 mg bid on 09/18/17. Cannot anticoagulate due to recent surgery and thrombocytopenia. Subcu heparin start 09/19 -2D echocardiogram 09/13 - left ventricular systolic function normal with an estimated ejection fraction in the range of 50-55%. No definite regional wall motion abnormalities. There is mild tricuspid regurgitation. PASP 44 mmHg. -On hydrocortisone sodium 50 q8 -DCd 09/19 Renal//FEN Acute kidney failure Hyponatremia -Most likely secondary to ATN/septic shock -Nephrology Dr. Zhu following, CVVH started 09/11/17, transitioned to IHD 09/13 ->10 L removed with hemodialysis 09/17, 09/18,09/19. HD again today. -Left subclavian Vas-Cath paced 09/16/17 GI/ID Small bowel enterotomy with leakage of small bowel contents, status post ex lap s/p diverting ileostomy POD 7 Peritonitis with septic shock -Status post ascending colectomy 09/07 pod 12 -Status post ex lap irrigation and diverting ileostomy for small bowel perforation pod 9 -CT abdomen pelvis to rule out abscess formation-negative for fluid collection -Continue Continue Cefepime IV, Diflucan, Flagyl IV per ID -Post op Management per Dr. Mcclellan general surgery -Blood cx 09/13 Enterobacter pansensitive, fluid culture 09/17 Enterobacter pansensitive HEME: Leukocytosis Normocytic anemia Thrombocytopenia-improving -Monitor CBC, coags -Thrombocytopenia secondary to sepsis, DIC -f/u LDH, haptoglobin and peripheral smear -Hematology following -Resumed sq Heparin, 09/20, HIT screen negative panel ENDO: Hyperglycemia History of gout Hypothyroidism Sliding scale insulin with NovoLog to maintain euglycemia/low regimen every 6 hours Holding allopurinol 100 mg by mouth daily for gout/home medication Levothyroxine 50 mcg by tube daily. IV levothyroxine limited to myxedema coma only at [place] due to nationwide shortage DVT GI prophylaxis -Luis M's and SCDs -Subcu heparin-resumed 09/20 -Famotidine Overall impression: Critically ill with persistent sepsis and respiratory failure. Acute kidney injury with requiring hemodialysis. Prognosis guarded. will need long-term weaning due to severe respiratory weakness. Sathya Bowling MD Sep 23, 2017 10:18
[2017-09-23] MEDS: RESP: ALBUTEROL 2.5 MG/3 ML NEB (PRN) NEB (10:34)
--- NOTE | 2017-09-23 11:31 | HHI.PR ---
Subjective Remarks Remains intubated. No N or V. Awake alert. Off pressors. For trach soon. Trickle feeds 20/hr Objective Vital Signs Date Time Temp Pulse Resp B/P (MAP) Pulse Ox O2 Delivery O2 Flow Rate FiO2 09/23/17 10:36 100 40 09/23/17 10:36 40 09/23/17 08:00 40 09/23/17 06:00 80 09/23/17 04:00 74 09/23/17 04:00 40 09/23/17 04:00 98.3 74 18 134/52 (79) 100 09/23/17 03:22 100 40 09/23/17 02:00 70 09/23/17 01:13 100 40 09/23/17 00:45 22 09/23/17 00:00 98.4 80 21 140/54 (82) 100 09/23/17 00:00 71 09/23/17 00:00 40 09/22/17 22:00 72 09/22/17 21:08 99 40 09/22/17 20:00 40 09/22/17 20:00 82 09/22/17 20:00 98.3 88 23 108/51 (70) 100 09/22/17 18:43 100 40 09/22/17 18:00 73 09/22/17 16:00 40 09/22/17 16:00 97.9 68 19 164/58 (93) 100 09/22/17 16:00 68 09/22/17 14:00 68 09/22/17 13:50 99 40 09/22/17 12:00 98.5 77 21 171/64 (99) 100 09/22/17 12:00 77 09/22/17 12:00 40 I/O 09/22/17 09/22/17 09/22/17 09/23/17 09/23/17 09/23/17 07:00 15:00 23:00 07:00 15:00 23:00 Intake Total 142 ml 100 ml 40 ml 349 ml Output Total 860 ml 3260 ml 605 ml Balance -718 ml 100 ml -3220 ml -256 ml IV Total 100 ml 100 ml Tube Feeding 82 ml 40 ml 229 ml Tube Irrigant 20 ml Other 60 ml Output Urine Total 20 ml 20 ml 0 ml Stool Total 800 ml 200 ml 575 ml Drainage Total 40 ml 40 ml 30 ml Hemodialysis 3000 ml # Bowel Movements 1 0 Result Diagram: 09/23/1760409/23/17604 Objective Remarks VS-S Abd: softer,stoma pink,working well,still wth thick aguliar drainage from left colic gutter drain Assessment and Plan Assessment and Plan Stable. Possible trach soon Per Physical Fitness Teacher,Renal,Advance feeding as tolerated Michele Seay MD Sep 23, 2017 11:31
--- NOTE | 2017-09-23 12:15 | HHI.NPPN ---
Subjective General Problems: Anemia, Edema Renal Failure: Acute Interval History patient was seen and examined. Remains on the ventilator, he is able to follow commands. Dialyzed yesterday. 3 liters removed. Review of Systems General General Remarks unable to evaluate Objective Data Data Vital Signs Date Time Temp Pulse Resp B/P (MAP) Pulse Ox O2 Delivery O2 Flow Rate FiO2 09/23/17 10:36 100 40 09/23/17 10:36 40 09/23/17 10:00 76 09/23/17 08:00 73 09/23/17 08:00 40 09/23/17 08:00 98.8 74 18 156/56 (89) 100 09/23/17 06:00 80 09/23/17 04:00 74 09/23/17 04:00 40 09/23/17 04:00 98.3 74 18 134/52 (79) 100 09/23/17 03:22 100 40 09/23/17 02:00 70 09/23/17 01:13 100 40 09/23/17 00:45 22 09/23/17 00:00 98.4 80 21 140/54 (82) 100 09/23/17 00:00 71 09/23/17 00:00 40 09/22/17 22:00 72 09/22/17 21:08 99 40 09/22/17 20:00 40 09/22/17 20:00 82 09/22/17 20:00 98.3 88 23 108/51 (70) 100 09/22/17 18:43 100 40 09/22/17 18:00 73 09/22/17 16:00 40 09/22/17 16:00 97.9 68 19 164/58 (93) 100 09/22/17 16:00 68 09/22/17 14:00 68 09/22/17 13:50 99 40 -: 09/23/17 0605 09/23/17 0605 Tubes & Lines: Perma-Cath, Canela Tubes & Lines Comment TLC right IJ VC left IJ A line ileostomy RLQ BRANDEN drains x 2 abd Drip Comment vasopressin, dobutamine Physical Exam General Appearance: Well Developed, Comfortable Throat Throat Exam: Oral Mucosa [place] & Moist Neck Neck Exam: Neck Supple Pulmonary Resp Exam: Breath Sounds Equal, No Distress, Decreased Bases Cardiology CV Exam: Regular, Normal Sinus Rhythm Gastrointestinal/Abdomen GI Exam: Soft, Positive Bowel Movement, Distended, Bowel Sounds Hypoactive Musculoskeletal MS Exam: Joints Intact, Good Strength, Unable to Ambulate Integumentary Skin Exam: Warm, Dry, Intact Extremeties Extremities Exam: Pedal Pulses Palpable, Moderate Edema Neurologic Neuro Exam: Alert, Awake Psychiatric Psych Exam: Appropriate Responses VTE Prophylaxis Device: SCDs Assessment/Plan Discussed Condition With: Spouse Assessment Summary: JOSEF/Acute Renal Failure, Acute Tubular Necrosis, Hypotension Electrolyte Assessment: Hypocalcemia Problem List: (1) JOSEF (acute kidney injury) ICD Codes: N17.9 - Acute kidney failure, unspecified Plan: His renal function is normal at baseline Oliguric renal failure, ATN, secondary to sepsis On CRRT from 09/11-09/12. HD started on 09/13. Will skip dialysis today. Monitor urine output, likely needs dialysis again tomorrow. On calcium acetate TID, monitor phosphorus level. Repeat the level tomorrow. No need for dobutamine or vasopressin if he is hemodynamically stable. (2) S/P partial colectomy ICD Codes: Z90.49 - Acquired absence of other specified parts of digestive tract Plan: He developed small bowel perforation after robotic surgery, s/p emergent ex lap with I&D 09/11 Management per surgery and CCM has ileostomy that is draining Continue supportive care for sepsis and renal failure Prognosis is guarded. (3) Sepsis ICD Codes: A41.9 - Sepsis, unspecified organism Plan: Due to above ID following, antibiotics changed, include Levaquin, meropenem, and micafungin. Off cefepime, fluconazole, Flagyl monitor drug levels when appropriate I (4) Hypocalcemia ICD Codes: E83.51 - Hypocalcemia Plan: On liquid vitamin D for deficiency Nish Zhu MD Sep 23, 2017 12:15
[2017-09-23] MEDS: ACETAMINOPHEN 325 MG TAB PO PRN (15:28)
[2017-09-23] MEDS: MICAFUNGIN INJ 150 MG in SODIUM CHLORIDE 0.9% INJ 100 ML IV SCH (18:14)
[2017-09-24] VITALS (18 sets, daily range): BP systolic 130–154; BP diastolic 48–66; PULSE 66–78; RESP 18–20; TEMP 97.4–100.4; O2SAT 96–100
[2017-09-24] MEDS: ACETAMINOPHEN 325 MG TAB PO PRN (02:03)
[2017-09-24] MEDS: HEPARIN SODIUM - SQ 10,000 UNITS/ML VIAL SQ SCH ×2 (03:00→14:48)
[2017-09-24] MEDS: INSULIN ASPART SUPPLEMENTAL SCALE SQ SCH ×3 (06:00→18:00)
[2017-09-24] MEDS: METOCLOPRAMIDE HCL 10 MG/2 ML VIAL IV PUSH SCH ×3 (06:00→21:44)
[2017-09-24 06:13] LABS: HEMATOCRIT 23.9 % (39.0-51.0); HEMOGLOBIN 8.4 GM/DL (13.0-17.0); MEAN CELL VOLUME 87.5 FL (80.0-100.0); MEAN CORPUSCULAR HEMOGLOBIN 30.9 PG (27.0-34.0); MEAN CORPUSCULAR HGB CONC 35.3 % (32.0-36.0); MEAN PLATELET VOLUME 9.4 FL (7.0-11.0); PLATELET COUNT 127 TH/MM3 (150-450); RED BLOOD COUNT 2.73 MIL/MM3 (4.50-5.90); RED CELL DISTRIBUTION WIDTH 14.7 % (11.6-17.2); WHITE BLOOD COUNT 8.5 TH/MM3 (4.0-11.0)
[2017-09-24] MEDS: LEVOTHYROXINE SODIUM 50 MCG TAB PO SCH (06:18)
[2017-09-24] MEDS: ARTIFICIAL TEARS OPTH SOLN 15 ML BTL EACH EYE SCH ×3 (06:18→21:44)
[2017-09-24 06:53] LABS: BICARBONATE 22.6 MEQ/L (21.0-32.0); CALCIUM 8.6 MG/DL (8.5-10.1); CREATININE 7.73 MG/DL (0.60-1.30)
--- NOTE | 2017-09-24 08:02 | HHI.NPPN ---
Subjective General Problems: Anemia, Edema Renal Failure: Acute Interval History patient was not dialyzed yesterday, but he is highly catabolic. Dialysis today. Review of Systems General General Remarks unable to evaluate Objective Data Data Vital Signs Date Time Temp Pulse Resp B/P (MAP) Pulse Ox O2 Delivery O2 Flow Rate FiO2 09/24/17 06:00 66 09/24/17 04:00 40 09/24/17 04:00 73 09/24/17 04:00 98.2 69 18 144/59 (87) 100 09/24/17 03:57 100 40 09/24/17 03:03 18 09/24/17 02:00 71 09/24/17 01:31 100 40 09/24/17 00:00 98.4 71 18 134/59 (84) 100 09/24/17 00:00 40 09/24/17 00:00 69 09/23/17 22:00 80 09/23/17 21:49 100 40 09/23/17 20:00 98.9 71 19 135/67 (89) 100 09/23/17 20:00 69 09/23/17 20:00 40 09/23/17 18:00 65 09/23/17 17:08 99 40 09/23/17 16:00 40 09/23/17 16:00 66 09/23/17 16:00 99.0 66 20 126/50 (75) 99 09/23/17 14:00 74 09/23/17 12:00 99.0 75 23 145/61 (89) 100 09/23/17 12:00 75 09/23/17 12:00 40 09/23/17 10:36 100 40 09/23/17 10:36 40 09/23/17 10:00 76 09/23/17 08:00 73 09/23/17 08:00 40 09/23/17 08:00 98.8 74 18 156/56 (89) 100 -: 09/24/17 0516 09/24/17 0516 Tubes & Lines: Perma-Cath, Canela Tubes & Lines Comment TLC right IJ VC left IJ A line ileostomy RLQ BRANDEN drains x 2 abd Drip Comment vasopressin, dobutamine Physical Exam General Appearance: Well Developed, Comfortable Throat Throat Exam: Oral Mucosa [place] & Moist Neck Neck Exam: Neck Supple Pulmonary Resp Exam: Breath Sounds Equal, No Distress, Decreased Bases Cardiology CV Exam: Regular, Normal Sinus Rhythm Gastrointestinal/Abdomen GI Exam: Soft, Positive Bowel Movement, Distended, Bowel Sounds Hypoactive Musculoskeletal MS Exam: Joints Intact, Good Strength, Unable to Ambulate Integumentary Skin Exam: Warm, Dry, Intact Extremeties Extremities Exam: Pedal Pulses Palpable, Moderate Edema Neurologic Neuro Exam: Alert, Awake Psychiatric Psych Exam: Appropriate Responses VTE Prophylaxis Device: SCDs Assessment/Plan Discussed Condition With: Spouse Assessment Summary: JOSEF/Acute Renal Failure, Acute Tubular Necrosis, Hypotension Electrolyte Assessment: Hypocalcemia Problem List: (1) JOSEF (acute kidney injury) ICD Codes: N17.9 - Acute kidney failure, unspecified Plan: His renal function is normal at baseline Oliguric renal failure, ATN, secondary to sepsis On CRRT from 09/11-09/12. HD started on 09/13. Dialysis today. Monitor urine output, likely needs dialysis again tomorrow. On calcium acetate TID, monitor phosphorus level. Repeat the level tomorrow. No need for dobutamine or vasopressin if he is hemodynamically stable. (2) S/P partial colectomy ICD Codes: Z90.49 - Acquired absence of other specified parts of digestive tract Plan: He developed small bowel perforation after robotic surgery, s/p emergent ex lap with I&D / Management per surgery and CCM has ileostomy that is draining Continue supportive care for sepsis and renal failure Prognosis is guarded. (3) Sepsis ICD Codes: A41.9 - Sepsis, unspecified organism Plan: Due to above ID following, antibiotics changed, include meropenem, and micafungin. Off cefepime, fluconazole, Flagyl monitor drug levels when appropriate I (4) Hypocalcemia ICD Codes: E83.51 - Hypocalcemia Plan: On liquid vitamin D for deficiency Nish Zhu MD Sep 24, 2017 08:02
[2017-09-24] MEDS: METOPROLOL SUCCINATE 25 MG EXTENDED RELEASE TAB PO SCH (08:10)
[2017-09-24] MEDS: CHOLECALCIFEROL (VIT D3) LIQ 400 UNITS/ML 50 ML BOTTLE PO SCH (09:00)
[2017-09-24] MEDS: PANTOPRAZOLE SODIUM 40 MG VIAL IVP SCH (09:52)
[2017-09-24] MEDS: amLODIPine BESYLATE 5 MG TAB PO SCH (09:52)
[2017-09-24] MEDS: CARVEDILOL 3.125 MG TAB PO SCH ×2 (09:52→21:42)
--- NOTE | 2017-09-24 10:41 | HHI.CCPN ---
Subjective Remarks/Hospital Course 67-year-old very pleasant gentleman initially admitted for same day surgery for polyp removal. Due to some complications in the OR he required a colonoscopy during the surgery and now he is postop day 4 status post robotic ascending colectomy. He also required bilateral ureteral catheter placement by urology. Postoperatively he was given Toradol, received 12 doses. He is now on IVF, urine output is very low and he has cola colored urine. He continues to be profoundly acidotic and the x-ray today shows pneumoperitoneum that is new compared to previous images. The patient's surgeon Dr. Mcclellan is at the bedside and she is taking him immediately to operating room for a revision. The patient during my exam is not in distress. 09/12: Remains very critical in septic shock. CVVH started yesterday. Remains on Levophed, dontrell-synephrine and and vasopressin plus stress dose steroids. s/p Small bowel enterotomy with leakage of small bowel contents, s/p diverting ileostomy. WBC up to 19.5, platelet count 64 today 09/13: Continues to be intubated remains critical but slight improvement in hemodynamics. Levophed is down to 12 mcg/m remains on vasopressin. Dontrell- Synephrine was restarted overnight currently at 60 mcg/m but will wean to DC. Platelet count further down now 45 most likely from sepsis and consumption. Check hit screen. CVVH filter clot transitioning to hemodialysis today. Appreciate ID consult. WBC count is up to 25.2 today Subjective 09/14: Afebrile. Currently only on vasopressin to maintain mean arterial pressure greater than equal to 65. Norepinephrine is been discontinued along with Dontrell-Synephrine. Platelets currently 31. LDH, haptoglobin and peripheral smear pending. No bleeding apparent. 09/15: May need to replace HD catheter, flow sluggish. Tapering vasopressors but platelets remain low. 09/16. Platelet count 56,[address] new hemodialysis catheter. Unfortunately there are no access it is available in the neck. Examination of the groins reveals that the areas are much too contaminated to allow for line placement. The only sites available are subclavian approach. I have discussed this with Dr. Breen and he agrees to proceed with subclavian placement. This should not be a situation requiring long-term hemodialysis. MAURICE panel negative. 09/17: Remains intubated sedated, new hemodialysis catheter placed today. Plan for hemodialysis today. WBC count 11.9 to 18.4 today, but patient remains on stress dose steroids. Start weaning hydrocortisone. Urine output remains minimal. Platelet count improving 66 today 09/18: Remains critical remains hemodynamically stable but increasing brownish thick output from the bilateral BRANDEN drains. Midline incision with some eschar formation Dr. Mcclellan made aware. CT of the abdomen pelvis stat to rule out abscess/fluid collections. CBC and CMP are pending today 09/19: Remains intubated off sedation patient able to follow commands but significant muscular weakness especially lower extremities. Off pressors. He remains oliguric to anuric. CT abdomen pelvis did not show any drainable fluid collections. CBC starting to trend down 16.6 to 13.8. Will discontinue stress dose steroids today 09/20: Wakes up easily on low dose propofol. Plan for HD with fluid removal today. Hemodynamically stable. Urine output 120 mL in 24 hours. Hb 7.6 yesterday, will repeat am. no transfusion at this time. Possible extubation today after hemodialysis 09/21: hypoxia improving. remains in shock on multiple vasopressors and inotropes. critically ill. 09/22: off vasopressors. clinically improving and awake, alert. still failing any weaning attempts. long discussion with and patient, and we all agree trach is the best option for him. will likely plan for Sunday. 09/23: doing well. awake. alert. denies complaints. ROS negative. 09/24: awake. plan for trach today. still failing weaning attempts. Objective Vital Signs Date Time Temp Pulse Resp B/P (MAP) Pulse Ox O2 Delivery O2 Flow Rate FiO2 09/24/17 09:58 40 09/24/17 08:00 68 09/24/17 08:00 99.2 18 143/63 (89) 100 09/20/17 15:53 BiPAP/CPAP Intake and Output 09/24/17 09/24/17 09/25/17 08:00 16:00 00:00 Intake Total 214 ml Output Total 675 ml Balance -461 ml Result Diagram: 09/24/17 0516 09/24/17 0516 Imaging Last Impressions Chest X-Ray 09/14/17 0600 Signed Impressions: Service Date/Time: Thursday, September 14, 2017 03:40 - CONCLUSION: No significant interval change. Persistent left lower lobe atelectasis versus consolidation and mild hazy bilateral lung opacity. Valeriy Gagnon MD Abdomen X-Ray 09/13/17 0000 Signed Impressions: Service Date/Time: September 10:52 - CONCLUSION: Gastric tube tip and side-port project over the stomach. Andrés Gardner MD Renal Ultrasound 09/10/17 0000 Signed Impressions: Service Date/Time: Sunday, September 10, 2017 15:17 - CONCLUSION: No evidence of mass or hydronephrosis. Andrés Gardner MD Objective Remarks GENERAL: 67-year-old male currently orotracheally intubated SKIN: Warm and dry. See GI exam for abdominal incision HEAD: Normocephalic. EYES: MARIO. EOMI. ENT: Orotracheally intubated. . NECK: Supple, trachea midline. Right IJ cordis with dual-lumen catheter is clean dry and intact. Left subclavian hemodialysis catheter in place, CDI CARDIOVASCULAR: Regular rate and rhythm. No JVD. RESPIRATORY: Breath sounds equal bilaterally. prvc, peep 8, fio2 40%. GASTROINTESTINAL: Abdominal binder in place. Ileostomy pink, bilateral BRANDEN drains with light brown thick secretions. Midline incision with some eschar formation MUSCULOSKELETAL: With 1+ bilateral lower extremity edema NEURO EXAM: RASS 0. following commands. Line: Central Venous Catheter Side: Left Location: Internal, Jugular A/P Assessment and Plan Neuro: Toxic metabolic encephalopathy CIM Off all sedation. severe neuromuscular weakness persists PT/OT daily Use propofol and fentanyl for sedation and ventilator synchrony Encephalopathy improving Resp Acute hypoxemic respiratory failure- recurrent, persistent. HCAP Ventilator bundle. Albuterol/ipratropium aerosols every 6 hours with albuterol aerosols every 2. hours as needed dyspnea will need tracheostomy for long-term weaning. nearly coded from trial of extubation due to severe deconditioning and hypoxia. plan for trach today. Continue fluid removal with hemodialysis CVS: Severe septic shock-persistent Lactic acidosis Fluid overload A fib with RVR, now NSR Coronary disease status post stent times 07/2015 History of hypertension History of dyslipidemia -s/p Aggressively fluid resuscitated, now getting fluid removed by hemodialysis -back on vasopressin and dobutamine. will wean slowly as tolerated. -Holding aspirin 81 mg by mouth daily with low platelet, Resume once consistently >90 -DCd Amiodarone drip at 0.5 mcg/min, started Coreg 3.125 mg bid on 09/18/17. Cannot anticoagulate due to recent surgery and thrombocytopenia. Subcu heparin start 09/19 -2D echocardiogram 09/13 - left ventricular systolic function normal with an estimated ejection fraction in the range of 50-55%. No definite regional wall motion abnormalities. There is mild tricuspid regurgitation. PASP 44 mmHg. -On hydrocortisone sodium 50 q8 -DCd 09/19 Renal//FEN Acute kidney failure Hyponatremia -Most likely secondary to ATN/septic shock -Nephrology Dr. Zhu following, CVVH started 09/11/17, transitioned to IHD 09/13 ->10 L removed with hemodialysis 09/17, 09/18,09/19. HD again today. -Left subclavian Vas-Cath paced 09/16/17 GI/ID Small bowel enterotomy with leakage of small bowel contents, status post ex lap s/p diverting ileostomy POD 7 Peritonitis with septic shock -Status post ascending colectomy 09/07 pod 12 -Status post ex lap irrigation and diverting ileostomy for small bowel perforation pod 9 -CT abdomen pelvis to rule out abscess formation-negative for fluid collection -Continue Continue Cefepime IV, Diflucan, Flagyl IV per ID -Post op Management per Dr. Mcclellan general surgery -Blood cx 09/13 Enterobacter pansensitive, fluid culture 09/17 Enterobacter pansensitive HEME: Leukocytosis Normocytic anemia Thrombocytopenia-improving -Monitor CBC, coags -Thrombocytopenia secondary to sepsis, DIC -f/u LDH, haptoglobin and peripheral smear -Hematology following -Resumed sq Heparin, 09/20, HIT screen negative panel ENDO: Hyperglycemia History of gout Hypothyroidism Sliding scale insulin with NovoLog to maintain euglycemia/low regimen every 6 hours Holding allopurinol 100 mg by mouth daily for gout/home medication Levothyroxine 50 mcg by tube daily. IV levothyroxine limited to myxedema coma only at [place] due to nationwide shortage DVT GI prophylaxis -Luis M's and SCDs -Subcu heparin-resumed 09/20 -Famotidine Overall impression: Critically ill with persistent sepsis and respiratory failure. Acute kidney injury with requiring hemodialysis. Prognosis guarded. will need long-term weaning due to severe respiratory weakness. Sathya Bowling MD Sep 24, 2017 10:41
[2017-09-24] MEDS ORDERED: CISATRACURIUM BESYLATE 200 MG/20 ML VIAL IV ONE (10:45)
[2017-09-24] MEDS ORDERED: fentaNYL CITRATE 250 MCG/5 ML AMP IV PUSH ONE (10:45)
[2017-09-24] MEDS ORDERED: MIDAZOLAM HCL 5 MG/5 ML VIAL IV PUSH ONE (11:00)
--- NOTE | 2017-09-24 11:29 | HHI.IDPN ---
Subjective Subjective Remarks ID X cover is a 67 y/o CM with PMHx significant for CAD, s/p PCI and stents. He was repeatedly diagnosed with sessile polyp and underwent exploratory laparoscopy with robotic takedown of splenic flexure, colonoscopy with tattooing and robotic ascending colectomy on 09/07/17 by . Reportedly, the urine output was low and urology was consulted when despite IVF urine output did not increase. Patient was seen by and underwent cystoscopy and bilateral ureteral catheter insertion with 500 cc of urine obtained. During the hospital stay patient subsequently had abdominal distention and despite NG tube to suction continued to have worsening distention and discomfort. A KUB done earlier on the day of CT on 09/11/2017 was negative for free air but subsequent imaging showed free air so patient was emergently taken to the OR by . Patient was found to have a small bowel defect and large amounts of of bowel contents were visible in peritoneum per op note. Critical Care was consulted and patient is currently being treated for Septic Shock with multiple pressors, IVF boluses given yday. He had low urine output and Nephrology is on the case and CVVHD initiated. Patient had issues with clotting of access line so CVVHD has been interrupted off and on. Patient is currently intubated on a ventilator. Not much resp secretions. Ileostomy output ok. Platelets have been low but no obvious bleeding from any sites. Patient remains sedated on vent. Patient has been started on empiric antibiotics Zosyn IV, Vanco IV x 1 dose, Flagyl IV, Micafungin IV. Left IJ Vascath placed on 09/11/2017 ID consulted for evaluation and Mment of Septic Shock, Secondary peritonitis. Notes reviewed D/W RN Temps ok On the vent For trach today BP ok Per RN - colostomy appliance changed today and got maroon fluid around the stoma WBC normal For HD today Low UOP Cultures reviewed Bronch C/S 09/20 normal angel Antibiotics Meropenem IV micafungin Current Medications Medications (Trade) Dose Ordered Sig/Emilee Route Start Time Stop Time Status Last Admin (Protonix Inj) 40 mg DAILY IVP 09/08/17 09:00 09/24/17 09:52 (Zofran Inj) 4 mg Q6H PRN IV PUSH 09/07/17 16:00 09/08/17 01:06 (Vasotec Inj) 1.25 mg Q4H PRN IV PUSH 09/07/17 16:00 Future Hold (Vasotec Inj) 2.5 mg Q6H PRN IV PUSH 09/07/17 16:00 Future Hold Potassium Chloride 100 ml @ 50 mls/hr UNSCH PRN IV 09/07/17 16:00 Potassium Chloride 100 ml @ 25 mls/hr UNSCH PRN IV-CENTRAL 09/07/17 16:00 (Heparin Inj) 5,000 units Q12H SQ 09/08/17 15:00 Future hold 09/23/17 15:30 (Narcan Inj) 0.4 mg UNSCH PRN IV PUSH 09/07/17 16:00 (Benadryl Inj) 25 mg Q6H PRN IV PUSH 09/07/17 16:00 (Norvasc) 5 mg DAILY PO 09/08/17 09:00 Future hold 09/24/17 09:52 (Toprol Xl) 25 mg DAILY PO 09/08/17 09:00 Future hold 09/10/17 09:50 (Dilaudid Pf Inj) 0.2 mg Q3H PRN IV 09/08/17 21:45 09/23/17 00:15 (Benadryl Inj) 25 mg HS PRN IV PUSH 09/10/17 20:15 Sodium Chloride 1,000 ml @ 0 mls/hr Q0M PRN OTHER 09/11/17 09:25 09/16/17 20:09 (Heparin Inj) 8,000 units UNSCH PRN IV FLUSH 09/11/17 09:30 09/17/17 15:47 Sodium Chloride 1,000 ml @ 200 mls/hr Q5H PRN IV 09/11/17 09:25 Sodium Chloride 1,000 ml @ 0 mls/hr Q0M PRN OTHER 09/11/17 09:25 (Mannitol Inj) 12.5 gm UNSCH PRN IV 09/11/17 09:30 Albumin Human 100 ml @ 60 mls/hr UNSCH PRN IV 09/11/17 09:30 09/19/17 14:11 (NS Flush) 5 ml UNSCH PRN IV FLUSH 09/11/17 09:30 09/19/17 19:57 (Heparin Inj) UNSCH PRN .XX 09/11/17 09:30 09/21/17 14:02 (Gentamicin Inj) 20 mg UNSCH PRN OTHER 09/11/17 09:30 09/22/17 20:30 (Zofran Inj) 4 mg UNSCH PRN IV PUSH 09/11/17 09:30 (Tylenol) 650 mg UNSCH PRN PO 09/11/17 09:30 09/24/17 02:03 (Benadryl) 25 mg UNSCH PRN PO 09/11/17 09:30 (Nitrostat Sl) 0.4 mg UNSCH PRN SL 09/11/17 09:30 (Catapres) 0.1 mg UNSCH PRN PO 09/11/17 09:30 (Gelfoam 12 Mm/7 Mm Top) 1 foam UNSCH PRN TOP 09/11/17 09:30 Amiodarone HCl 450 mg/Sodium Chloride 250 ml @ 33.33 mls/ hr Q7H31M PRN IV 09/11/17 12:00 09/18/17 12:19 Propofol 100 ml @ 2.895 mls/ hr TITRATE PRN IV 09/11/17 12:45 09/19/17 06:46 Sodium Chloride 1,000 ml @ 0 mls/hr UNSCH PRN OTHER 09/11/17 13:00 (KCl 40 Meq Premix Inj) *FOR DIALYSIS USE IN C... WITH DIALYSIS PRN .XX 09/11/17 13:00 (Brethine Inj) 1 mg UNSCH PRN SQ 09/11/17 16:45 Fentanyl Citrate 250 ml @ 5 mls/hr TITRATE PRN IV 09/12/17 11:00 09/19/17 06:07 (Tears Naturale Opth Soln) 1 drop Q8HR EACH EYE 09/14/17 14:00 09/24/17 06:18 (Albuterol Neb) 2.5 mg Q2HR NEB PRN NEB 09/14/17 09:00 09/23/17 10:34 (Synthroid) 50 mcg DAILY@0600 PO 09/15/17 06:00 09/24/17 06:18 (D50w (Vial) Inj) 50 ml UNSCH PRN IV PUSH 09/14/17 09:45 (Glucagon Inj) 1 mg UNSCH PRN OTHER 09/14/17 09:45 (NovoLOG SUPPLEMENTAL SCALE) 1 Q6HR SQ 09/14/17 12:00 09/21/17 00:41 (Vitamin D Liq) 2,000 units DAILY PO 09/14/17 14:30 09/24/17 09:00 (Trandate Inj) 20 mg Q2H PRN IV PUSH 09/15/17 14:00 09/20/17 15:19 (Apresoline Inj) 10 mg Q30M PRN IV PUSH 09/15/17 14:00 09/22/17 13:41 (Reglan Inj) 5 mg Q8HR IV PUSH 09/17/17 22:00 09/23/17 15:27 (Tylenol) 1,000 mg Q8H PRN PO 09/18/17 09:00 (Coreg) 3.125 mg Q12HR PO 09/18/17 10:00 09/24/17 09:52 Micafungin Sodium 150 mg/Sodium Chloride 100 ml @ 100 mls/hr Q24H IV 09/20/17 18:00 09/23/17 18:14 Epinephrine HCl 2 mg/Dextrose 250 ml @ 22.5 mls/hr TITRATE PRN IV 09/20/17 19:45 Vasopressin 40 units/Dextrose 100 ml @ 6 mls/hr TITRATE PRN IV 09/20/17 19:45 09/21/17 02:44 Dobutamine HCl/ Dextrose 250 ml @ 11.985 mls/ hr TITRATE PRN IV 09/20/17 19:45 09/21/17 15:00 Meropenem 1000 mg/ Sodium Chloride 100 ml @ 200 mls/hr Q12H IV 09/22/17 00:00 09/23/17 23:45 Lines Line sites with no e.o infection Past Medical History reviewed Allergies: Coded Allergies: No Known Allergies (Unverified Allergy, Unknown, 09/07/17) Objective . Vital Signs Date Time Temp Pulse Resp B/P (MAP) Pulse Ox O2 Delivery O2 Flow Rate FiO2 09/24/17 09:58 40 09/24/17 08:00 68 09/24/17 08:00 99.2 68 18 143/63 (89) 100 09/24/17 08:00 40 09/24/17 07:58 100 40 09/24/17 06:00 66 09/24/17 04:00 40 09/24/17 04:00 73 09/24/17 04:00 98.2 69 18 144/59 (87) 100 09/24/17 03:57 100 40 09/24/17 03:03 18 09/24/17 02:00 71 09/24/17 01:31 100 40 09/24/17 00:00 98.4 71 18 134/59 (84) 100 09/24/17 00:00 40 09/24/17 00:00 69 09/23/17 22:00 80 09/23/17 21:49 100 40 09/23/17 20:00 98.9 71 19 135/67 (89) 100 09/23/17 20:00 69 09/23/17 20:00 40 09/23/17 18:00 65 09/23/17 17:08 99 40 09/23/17 16:00 40 09/23/17 16:00 66 09/23/17 16:00 99.0 66 20 126/50 (75) 99 09/23/17 14:00 74 09/23/17 12:00 99.0 75 23 145/61 (89) 100 09/23/17 12:00 75 09/23/17 12:00 40 . Laboratory Tests Test 09/23/17 06:05 09/24/17 05:16 White Blood Count 9.6 TH/MM3 8.5 TH/MM3 Red Blood Count 2.79 MIL/MM3 2.73 MIL/MM3 Hemoglobin 8.5 GM/DL 8.4 GM/DL Hematocrit 24.5 % 23.9 % Mean Corpuscular Volume 88.0 FL 87.5 FL Mean Corpuscular Hemoglobin 30.7 PG 30.9 PG Mean Corpuscular Hemoglobin Concent 34.8 % 35.3 % Red Cell Distribution Width 14.8 % 14.7 % Platelet Count 141 TH/MM3 127 TH/MM3 Mean Platelet Volume 10.1 FL 9.4 FL Laboratory Tests Test 09/23/17 06:05 09/24/17 05:16 Blood Urea Nitrogen 84 MG/DL 117 MG/DL Creatinine 5.66 MG/DL 7.73 MG/DL Random Glucose 121 MG/DL 101 MG/DL Calcium Level 8.4 MG/DL 8.6 MG/DL Sodium Level 139 MEQ/L 140 MEQ/L Potassium Level 4.3 MEQ/L 4.8 MEQ/L Chloride Level 100 MEQ/L 100 MEQ/L Carbon Dioxide Level 25.5 MEQ/L 22.6 MEQ/L Anion Gap 14 MEQ/L 17 MEQ/L Estimat Glomerular Filtration Rate 10 ML/MIN 7 ML/MIN Imaging Last Impressions Chest X-Ray 09/21/17 0600 Signed Impressions: Service Date/Time: Thursday, September 21, 2017 03:33 - CONCLUSION: Slight interval worsening in aeration Michele Coleman MD Abdomen/Pelvis CT 09/18/17 0000 Signed Impressions: Service Date/Time: Monday, September 18, 2017 15:55 - CONCLUSION: 1. No evidence of intra-abdominal abscess. 2. Small bilateral pleural effusions with adjacent alveolar consolidations consistent with compressive atelectasis or pneumonia. Clinical correlation is recommended. 3. Cholelithiasis. 4. 8.5 cm right renal cyst. 5. Degenerative changes and scoliosis of the thoraco-lumbar spine. 6. 2 low-density lesions within the liver measuring 1.8 cm in the right dome and 1.2 cm in the inferior right lobe which are indeterminate on this unenhanced examination. 7. Cardiomegaly and coronary artery calcification noted. Edwin Marie MD Liver Ultrasound 09/15/17 0000 Signed Impressions: Service Date/Time: Friday, September 15, 2017 07:34 - CONCLUSION: The liver appears mildly enlarged and decreased in echogenicity concerning for edema. The gallbladder is distended with sludge. No discrete stones are visualized. There is mild wall thickening of the gallbladder present. The spleen is overall normal in size and grossly normal in echotexture. Small amount of free fluid seen adjacent to the spleen. Vida Levine MD Abdomen X-Ray 09/13/17 0000 Signed Impressions: Service Date/Time: September 10:52 - CONCLUSION: Gastric tube tip and side-port project over the stomach. Andrés Gardner MD Renal Ultrasound 09/10/17 0000 Signed Impressions: Service Date/Time: Sunday, September 10, 2017 15:17 - CONCLUSION: No evidence of mass or hydronephrosis. Andrés Gardner MD Physical Exam GENERAL: awake, focusing, NAD on the vent SKIN: Cool and dry. No rash or ecchymoses. Edematous HEAD: Atraumatic. Normocephalic. EYES: Pupils equal round and reactive. No scleral icterus. No injection or drainage. ENT: Intubated orally. NO nasal drainage NECK: Trachea midline. Supple, nontender, no meningeal signs. CARDIOVASCULAR: HS audible. RESPIRATORY: Clear to auscultation. Breath sounds equal bilaterally but decreased in the bases. GASTROINTESTINAL: Abdomen soft, Ostomy bag with dark green liquid stool. BRANDEN drain x 1, left drain with purulent fluid. Midline incision with open area, packed with wet to dry dressing in place. Rest of sutures in place, has a small amount of purulence. Margins are poorly approximated MUSCULOSKELETAL: Extremities without clubbing, cyanosis. Pedal and hand edema noted, improving : small amount of dark urine in urinary bag NEUROLOGICAL: Eyes open, not following Psych could not be assessed IV line sites with no e.o infection. Has RIJ TLC and LSC vascath Assessment & Plan Remarks Possible new sepsis. Elevated WBC count and fever. Secondary peritonitis due to small bowel perforation s/p Enterotomy and washout , has an end ileostomy Abdominal wound infection E.cloacae. S/P robotic splenic flexure takedown on 09/07/17 S/P cystoscopy with bilateral ureteroscopies on 09/07/2017 Thrombocytopenia: sepsis, DIC - seems to have plateau Acute renal failure: prerenal, sepsis. Pulmonary infiltrate, BAL with nl resp angel Recs: Continue Meropenem IV (ASP: worsening infection while on BSA) Continue Micafungin IV Monitor progress ?Re CT A/P (last CT 09/18) For trach today Weaning per [facility] D/W Jaycee Martinez MD Sep 24, 2017 11:29
[2017-09-24] MEDS ORDERED: CISATRACURIUM BESYLATE 20 MG/10 ML VIAL IV ONE (11:30)
[2017-09-24] MEDS: MEROPENEM INJ 1,000 MG in SODIUM CHLORIDE 0.9% INJ 100 ML IV SCH (12:00)
--- NOTE | 2017-09-24 12:00 | PD.WCN.NOT ---
Wound Consult Description: New ostomy teaching ordered by Communicated with: Louise MAGUIRE Patient Recommendation: Midline incision: Debridement of midline necrotic tissue with sharps debridement (if a surgical candidate) and/or Santyl recommended Washout of midline incision for possible fistula vs abscess with possible VAC placement Ileostomy: Dr Mcclellan to evaluate purulent-sanguinous drainage from mucocutaneous junction @12,3,9 o'clock with necrotic peristomal tissue. Possible packing with Maxorb Extra AG to mucocutaneous junction separation with each appliance change. Empty pouch when 1/3-1/2 full Change ostomy pouching system every 3-5 days and PRN for leaking Additional Information: Patient seen early this morning for ostomy assessment. Midline incision was visualized and noted with necrotic tissue on open unapproximated midline incision from the 9 o'clock wound margin that extends down into wound bed with minimal active purulent drainage. Wound was repacked with gauze and covered with gauze. Ostomy Type: Ileostomy Surgeon: Ivory Mcclellan MD Date of Surgery: Sep 11, 2017 Additional information Stoma located on the right side abdomen with wafer and pouch intact appeared to be leaking from underneath wafer with brown discoloration noted to paper adhesive surrounding wafer. With removal of wafer there was moderate sanguinous purulent drainage that poured out from 9 o'clock at the mucocutaneous junction where it appears to have . Drainage was quickly dammed with a sterile gauze pad and the fluid was collected with a sterile syringe and placed at the bedside in its plastic packaging and communicated to Louise MAGUIRE who called Dr Mcclellan office urgently. Peristomal skin is noted with partial thickness skin loss from 3-6 o'clock ~1cm from stoma. Yellow necrotic tissue is touching the mucocutaneous junction from 5 o'clock to 9 o'clock and measures ~2cm x ~3cm x 0cm . Stoma measures 1" oval, red, moist, functioning with dark green liquid effluent from lumen noted at 12 o'clock. Entire peristomal skin was cleansed with NS and gauze and pat dry using gauze. Stoma powder was dusted over the partial thickness skin loss areas wiping away excess and skin prepping using Cavilon skin barrier film. Once the barrier film dried a cut piece of Maxorb Extra AG was placed over and around the stoma. Stoma paste was used to outline the outer border of the wafer, to extractor operator helper in adhesion then the 2 1/4" wafer was placed over the Maxorb covering the wound. This was done for absorption of the purulent sanguinous drainage in attempt to temporarily protect skin while collecting the effluent from the ileostomy until seen by Dr Mcclellan. Marie Schroeder [facility] Sep 24, 2017 12:00
--- NOTE | 2017-09-24 13:24 | HHI.PR ---
Subjective Remarks POD#17 s/p robotic ascending colectomy/POD#13 exploratory lap with diverting ileostomy Intubated, alert, responding Objective Vital Signs Date Time Temp Pulse Resp B/P (MAP) Pulse Ox O2 Delivery O2 Flow Rate FiO2 09/24/17 10:00 72 09/24/17 09:58 40 09/24/17 08:00 68 09/24/17 08:00 99.2 68 18 143/63 (89) 100 09/24/17 08:00 40 09/24/17 07:58 100 40 09/24/17 06:00 66 09/24/17 04:00 40 09/24/17 04:00 73 09/24/17 04:00 98.2 69 18 144/59 (87) 100 09/24/17 03:57 100 40 09/24/17 03:03 18 09/24/17 02:00 71 09/24/17 01:31 100 40 09/24/17 00:00 98.4 71 18 134/59 (84) 100 09/24/17 00:00 40 09/24/17 00:00 69 09/23/17 22:00 80 09/23/17 21:49 100 40 09/23/17 20:00 98.9 71 19 135/67 (89) 100 09/23/17 20:00 69 09/23/17 20:00 40 09/23/17 18:00 65 09/23/17 17:08 99 40 09/23/17 16:00 40 09/23/17 16:00 66 09/23/17 16:00 99.0 66 20 126/50 (75) 99 09/23/17 14:00 74 I/O 09/23/17 09/23/17 09/23/17 09/24/17 09/24/17 09/24/17 07:00 15:00 23:00 07:00 15:00 23:00 Intake Total 349 ml 513 ml 214 ml Output Total 605 ml 370 ml 675 ml Balance -256 ml 143 ml -461 ml Intake Oral 0 ml IV Total 100 ml 303 ml 50 ml Tube Feeding 229 ml 210 ml 144 ml Tube Irrigant 20 ml 20 ml Output Urine Total 0 ml 30 ml 100 ml Stool Total 575 ml 250 ml 550 ml Drainage Total 30 ml 90 ml 25 ml Result Diagram: 09/24/1716 09/24/17515 Objective Remarks Abdomen soft, mildly distended, ileostomy pink, mucocutaneous disruption - packed wound continued eschar (2-4 mm) to right of midpoint, healthy skin underneath debrided wound, clean, repacked BRANDEN - continues brownish aguilar, thick Assessment and Plan Assessment and Plan transverse colon polyp/sb enterotomy NEURO - responsive CV - back on pressors after extubation attempt, weaned now PULM - tracheostomy today GI - feedings tolerated at 30cc, held for tracheostomy FEN - HD today - slightly more urine ID - WBC's down to normal, consider CT Scan tomorrow Heme - stable Will need aggressive PT Condition guarded Ivory Mcclellan MD Sep 24, 2017 13:24
--- NOTE | 2017-09-24 14:09 | PD.PROCEDR ---
Procedure Note Procedure Diagnosis: Respiratory failure, anoxic brain injury. Operation: Therapeutic flexible fiberoptic bronchoscopy Procedure: Timeout performed, patient properly identified. Patient is orally intubated with mechanical ventilation in place and usual ICU monitoring devices attached. Through a side-port in the ventilatory circuit the bronchoscope was delivered through the indwelling orotracheal tube. The mucosa of the main trachea was moderately inflamed with chronic irritation. Bronchi were normal. There were no ulcerations. There was minimal sputum which was suctioned out of several segments. Branching anatomy appeared normal. The bronchoscope and the indwelling orotracheal tube were then withdrawn together to the level of the cricoid cartilage. This position was used to achieve visualization for the performance of the percutaneous tracheostomy dictated by a separate team under a separate note. At the end of the procedure the bronchoscope was then delivered through the new tracheostomy tube to confirm good position in the mid trachea. [place] was easily identified well below the new tracheostomy tube. The scope was then removed inner cannula placed and the patient converted to ventilation through the new tracheostomy tube. Oxygen saturation was maintained at greater than 95% throughout the procedure. Dawson Ball MD Sep 24, 2017 14:08
[2017-09-24] MEDS: ALBUMIN 25% INJ 100 ML IV PRN ×2 (14:30→14:45)
--- NOTE | 2017-09-24 15:19 | RADRPT ---
EXAM DATE/TIME: 09/24/2017 14:34 [facility] COMPARISON: CHEST SINGLE AP, September 21, 2017, 3:33. INDICATIONS : Tracheostomy. MEDICAL HISTORY : Myocardial infarction. Hypercholesterolemia. Thyroid disease. Tinnitus. HTN.Mildly enlarged prostate. Gout. SURGICAL HISTORY : Coronary stent and cardia catheterization. ENCOUNTER: Subsequent ACUITY: 2 weeks PAIN SCORE: Non-responsive. LOCATION: Bilateral chest FINDINGS: Trach tube in good position. Vas-Cath in good position. Minimal parenchymal changes left base.. Th ere is no pneumothorax. CONCLUSION: Trach tube in good position without pneumothorax with interval improvement in appeara nce the lungs. Ashu Aranda MD FACR on September 24, 2017 at 15:17 Board Certified Radiologist. This report was verified electronically.
--- NOTE | 2017-09-24 18:22 | PD.PROCEDR ---
Procedure Note Procedure Percutaneous Dilation Tracheostomy Tube Placement Diagnosis: Subacute respiratory failure Indications: Subacute respiratory failure with need for long-term mechanical ventilation Anesthesia: Versed 10 mg IV, fentanyl 250 mcg IV Neuromuscular Blockade: , cisatricurium 20 mg IV Anesthesia was provided by the bedside RN Description of the Procedure: The patient was sedated and paralyzed. The patient was positioned in the supine position with a chest roll. The patient's neck was slightly extended. Landmarks were palpated and the anatomy of the anterior neck was deemed normal. A time out procedure was performed. The patient was placed on a volume control mode of ventilation, on 100% FiO2. The patient was prepped and draped sterilely. A bronchoscope was inserted into the endotracheal tube for endoscopic guidance (see separate bronchoscopy procedure note). After negative aspiration, 1% lidocaine with 1:100k epinephrine was injected subcutaneously in the midline neck using a 21g needle for local anesthesia. An approximately 2cm skin incision was made using a #15 blade. The cricoid cartilage, thyroid tissue , and tracheal rings were palpated in the midline. Under direct bronchoscopic guidance, the cuff of the endotracheal tube was deflated and the endotracheal tube was retracted to a level above the level of the skin incision. At this point, a 15g introducer needle/catheter was advanced midline under negative aspiration with saline filled syringe until bubbles were seen and the needle and catheter were visualized in the lumen of the trachea. The needle was withdrawn leaving the catheter in place. A 0.052 in diameter J-shaped guidewire was advanced through the catheter into the lumen of the trachea, under direct bronchoscopic visualization. Using a modified Seldinger technique , a 14 Fr, 4.5 cm introducer dilator was used, followed by a Blue Rhino Percutaneous Tracheostomy Dilator, and finally a 28 Fr tracheostomy loading catheter with 8.0 Cuffed Shiley tracheostomy tube. The loading catheter and guidewire were removed and the tracheostomy tube was confirmed in the lumen of the trachea with bronchoscopy, end-tidal CO2, and returning volumes on the ventilator. The tracheostomy was sewn to the skin with interrupted 2.0 Prolene sutures, and a tracheostomy tie was applied to the skin. There were no immediate complications. There was minimal EBL. A chest x-ray has been ordered. Sail Finisher Hand: Zak Ball MD I personally performed the procedure. Sathya Bowling MD Sep 24, 2017 18:22
[2017-09-24] MEDS: MICAFUNGIN INJ 150 MG in SODIUM CHLORIDE 0.9% INJ 100 ML IV SCH (18:55)
[2017-09-24] MEDS: ACETAMINOPHEN 500 MG CPLT PO PRN (21:43)
[2017-09-25] VITALS (20 sets, daily range): BP systolic 100–154; BP diastolic 17–74; PULSE 68–80; RESP 18–26; TEMP 98.1–98.9; O2SAT 99–100
[2017-09-25] MEDS: MEROPENEM INJ 1,000 MG in SODIUM CHLORIDE 0.9% INJ 100 ML IV SCH ×3 (01:06→23:51)
[2017-09-25] MEDS: HEPARIN SODIUM - SQ 10,000 UNITS/ML VIAL SQ SCH ×2 (03:12→16:07)
[2017-09-25] MEDS ORDERED: DIATRIZOATE MEGLUM/DIATRIZOATE SOD 9 ML CUP PO ONE (03:45)
[2017-09-25 05:34] LABS: HEMATOCRIT 22.6 % (39.0-51.0); HEMOGLOBIN 7.8 GM/DL (13.0-17.0); MEAN CELL VOLUME 88.1 FL (80.0-100.0); MEAN CORPUSCULAR HEMOGLOBIN 30.3 PG (27.0-34.0); MEAN CORPUSCULAR HGB CONC 34.4 % (32.0-36.0); MEAN PLATELET VOLUME 9.7 FL (7.0-11.0); PLATELET COUNT 108 TH/MM3 (150-450); RED BLOOD COUNT 2.56 MIL/MM3 (4.50-5.90); RED CELL DISTRIBUTION WIDTH 14.5 % (11.6-17.2); WHITE BLOOD COUNT 8.6 TH/MM3 (4.0-11.0)
[2017-09-25 05:56] LABS: BICARBONATE 25.3 MEQ/L (21.0-32.0); CALCIUM 8.2 MG/DL (8.5-10.1); CREATININE 5.86 MG/DL (0.60-1.30); PHOSPHORUS 5.9 MG/DL (2.5-4.9)
[2017-09-25] MEDS: LEVOTHYROXINE SODIUM 50 MCG TAB PO SCH (05:58)
[2017-09-25] MEDS: ARTIFICIAL TEARS OPTH SOLN 15 ML BTL EACH EYE SCH ×3 (05:58→21:29)
[2017-09-25] MEDS: METOCLOPRAMIDE HCL 10 MG/2 ML VIAL IV PUSH SCH ×3 (05:58→21:28)
[2017-09-25] MEDS: INSULIN ASPART SUPPLEMENTAL SCALE SQ SCH ×4 (06:00→17:31)
[2017-09-25] MEDS: LABETALOL HCL 100 MG/20 ML VIAL IV PUSH PRN (06:10)
[2017-09-25] MEDS ORDERED: MICAFUNGIN IV SCH ×2 (08:45→18:00)
[2017-09-25] MEDS ORDERED: SODIUM CHLORIDE 0.9% IV SCH ×2 (08:45→18:00)
[2017-09-25] MEDS: CHOLECALCIFEROL (VIT D3) LIQ 400 UNITS/ML 50 ML BOTTLE PO SCH (08:57)
[2017-09-25] MEDS: amLODIPine BESYLATE 5 MG TAB PO SCH (08:57)
[2017-09-25] MEDS: CARVEDILOL 3.125 MG TAB PO SCH ×2 (08:57→21:28)
[2017-09-25] MEDS: PANTOPRAZOLE SODIUM 40 MG VIAL IVP SCH (08:57)
[2017-09-25] MEDS: METOPROLOL SUCCINATE 25 MG EXTENDED RELEASE TAB PO SCH (08:57)
--- NOTE | 2017-09-25 09:49 | HHI.CCPN ---
Subjective Remarks/Hospital Course 67-year-old very pleasant gentleman initially admitted for same day surgery for polyp removal. Due to some complications in the OR he required a colonoscopy during the surgery and now he is postop day 4 status post robotic ascending colectomy. He also required bilateral ureteral catheter placement by urology. Postoperatively he was given Toradol, received 12 doses. He is now on IVF, urine output is very low and he has cola colored urine. He continues to be profoundly acidotic and the x-ray today shows pneumoperitoneum that is new compared to previous images. The patient's surgeon Dr. Mcclellan is at the bedside and she is taking him immediately to operating room for a revision. The patient during my exam is not in distress. 09/12: Remains very critical in septic shock. CVVH started yesterday. Remains on Levophed, dontrell-synephrine and and vasopressin plus stress dose steroids. s/p Small bowel enterotomy with leakage of small bowel contents, s/p diverting ileostomy. WBC up to 19.5, platelet count 64 today 09/13: Continues to be intubated remains critical but slight improvement in hemodynamics. Levophed is down to 12 mcg/m remains on vasopressin. Dontrell- Synephrine was restarted overnight currently at 60 mcg/m but will wean to DC. Platelet count further down now 45 most likely from sepsis and consumption. Check hit screen. CVVH filter clot transitioning to hemodialysis today. Appreciate ID consult. WBC count is up to 25.2 today Subjective 09/14: Afebrile. Currently only on vasopressin to maintain mean arterial pressure greater than equal to 65. Norepinephrine is been discontinued along with Dontrell-Synephrine. Platelets currently 31. LDH, haptoglobin and peripheral smear pending. No bleeding apparent. 09/15: May need to replace HD catheter, flow sluggish. Tapering vasopressors but platelets remain low. 09/16. Platelet count 56,[address] new hemodialysis catheter. Unfortunately there are no access it is available in the neck. Examination of the groins reveals that the areas are much too contaminated to allow for line placement. The only sites available are subclavian approach. I have discussed this with Dr. Breen and he agrees to proceed with subclavian placement. This should not be a situation requiring long-term hemodialysis. MAURICE panel negative. 09/17: Remains intubated sedated, new hemodialysis catheter placed today. Plan for hemodialysis today. WBC count 11.9 to 18.4 today, but patient remains on stress dose steroids. Start weaning hydrocortisone. Urine output remains minimal. Platelet count improving 66 today 09/18: Remains critical remains hemodynamically stable but increasing brownish thick output from the bilateral BRANDEN drains. Midline incision with some eschar formation Dr. Mcclellan made aware. CT of the abdomen pelvis stat to rule out abscess/fluid collections. CBC and CMP are pending today 09/19: Remains intubated off sedation patient able to follow commands but significant muscular weakness especially lower extremities. Off pressors. He remains oliguric to anuric. CT abdomen pelvis did not show any drainable fluid collections. CBC starting to trend down 16.6 to 13.8. Will discontinue stress dose steroids today 09/20: Wakes up easily on low dose propofol. Plan for HD with fluid removal today. Hemodynamically stable. Urine output 120 mL in 24 hours. Hb 7.6 yesterday, will repeat am. no transfusion at this time. Possible extubation today after hemodialysis 09/21: hypoxia improving. remains in shock on multiple vasopressors and inotropes. critically ill. 09/22: off vasopressors. clinically improving and awake, alert. still failing any weaning attempts. long discussion with and patient, and we all agree trach is the best option for him. will likely plan for Sunday. 09/23: doing well. awake. alert. denies complaints. ROS negative. 09/24: awake. plan for trach today. still failing weaning attempts. 09/25: Status post tracheostomy yesterday. Awake and alert. Awaiting CT abdomen pelvis. Objective Vital Signs Date Time Temp Pulse Resp B/P (MAP) Pulse Ox O2 Delivery O2 Flow Rate FiO2 09/25/17 09:03 100 40 09/25/17 06:00 76 09/25/17 04:00 98.9 18 153/17 (62) Intake and Output 09/25/17 09/25/17 09/25/17 07:59 15:59 23:59 Intake Total 1266 ml Output Total 1215 ml Balance 51 ml Result Diagram: 09/25/17 0510 09/25/17 0510 Imaging Last Impressions Chest X-Ray 09/14/17 0600 Signed Impressions: Service Date/Time: Thursday, September 14, 2017 03:40 - CONCLUSION: No significant interval change. Persistent left lower lobe atelectasis versus consolidation and mild hazy bilateral lung opacity. Valeriy Gagnon MD Abdomen X-Ray 09/13/17 0000 Signed Impressions: Service Date/Time: September 10:52 - CONCLUSION: Gastric tube tip and side-port project over the stomach. Andrés Gardner MD Renal Ultrasound 09/10/17 0000 Signed Impressions: Service Date/Time: Sunday, September 10, 2017 15:17 - CONCLUSION: No evidence of mass or hydronephrosis. Andrés Gardner MD Objective Remarks GENERAL: 67-year-old male laying in bed, on mechanical ventilation via tracheostomy. SKIN: Warm and dry. See GI exam for abdominal incision HEAD: Normocephalic. EYES: MARIO. EOMI. ENT: Orotracheally intubated. . NECK: Tracheostomy in place. Left subclavian hemodialysis catheter in place, CDI CARDIOVASCULAR: Regular rate and rhythm. No JVD. RESPIRATORY: Breath sounds equal bilaterally. prvc, peep 8, fio2 40%. GASTROINTESTINAL: Abdominal binder in place. Ileostomy pink, BRANDEN drain with dark green thick secretions. Midline incision with some eschar formation MUSCULOSKELETAL: With 1+ bilateral lower extremity edema NEURO EXAM: RASS 0. following commands. Line: Central Venous Catheter Side: Left Location: Internal, Jugular A/P Assessment and Plan Neuro: Toxic metabolic encephalopathy CIM Off all sedation. severe neuromuscular weakness persists PT/OT daily Use propofol and fentanyl for sedation and ventilator synchrony Encephalopathy improving Resp Acute hypoxemic respiratory failure- recurrent, persistent. HCAP Ventilator bundle. Albuterol/ipratropium aerosols every 6 hours with albuterol aerosols every 2. hours as needed dyspnea will need tracheostomy for long-term weaning. nearly coded from trial of extubation due to severe deconditioning and hypoxia. plan for trach today. Continue fluid removal with hemodialysis CVS: Severe septic shock-persistent Lactic acidosis Fluid overload A fib with RVR, now NSR Coronary disease status post stent times 07/2015 History of hypertension History of dyslipidemia -s/p Aggressively fluid resuscitated, now getting fluid removed by hemodialysis -Off pressors -Holding aspirin 81 mg by mouth daily with low platelet, Resume once consistently >90 -DCd Amiodarone drip at 0.5 mcg/min, started Coreg 3.125 mg bid on 09/18/17. Cannot anticoagulate due to recent surgery and thrombocytopenia. Subcu heparin start 09/19 -2D echocardiogram 09/13 - left ventricular systolic function normal with an estimated ejection fraction in the range of 50-55%. No definite regional wall motion abnormalities. There is mild tricuspid regurgitation. PASP 44 mmHg. -On hydrocortisone sodium 50 q8 -DCd 09/19 Renal//FEN Acute kidney failure Hyponatremia -Most likely secondary to ATN/septic shock -Nephrology Dr. Zhu following, CVVH started 09/11/17, transitioned to IHD 09/13 ->10 L removed with hemodialysis 09/17, 09/18,09/19. HD again today. -Left subclavian Vas-Cath paced 09/16/17 GI/ID Small bowel enterotomy with leakage of small bowel contents, status post ex lap s/p diverting ileostomy POD 7 Peritonitis with septic shock -Status post ascending colectomy 09/07 pod 12 -Status post ex lap irrigation and diverting ileostomy for small bowel perforation pod 10 -Previous CT abdomen pelvis to rule out abscess formation-negative for fluid collection, follow-up CT abdomen pelvis on 09/25 -Continue Continue Cefepime IV, Diflucan, Flagyl IV per ID -Post op Management per Dr. Mcclellan general surgery -Blood cx 09/13 Enterobacter pansensitive, fluid culture 09/17 Enterobacter pansensitive HEME: Leukocytosis Normocytic anemia Thrombocytopenia-improving -Monitor CBC, coags -Thrombocytopenia secondary to sepsis, DIC -f/u LDH, haptoglobin and peripheral smear -Hematology following -Resumed sq Heparin, 09/20, HIT screen negative panel ENDO: Hyperglycemia History of gout Hypothyroidism Sliding scale insulin with NovoLog to maintain euglycemia/low regimen every 6 hours Holding allopurinol 100 mg by mouth daily for gout/home medication Levothyroxine 50 mcg by tube daily. IV levothyroxine limited to myxedema coma only at [facility] due to nationwide shortage DVT GI prophylaxis -Luis M's and SCDs -Subcu heparin-resumed 09/20 -Famotidine Overall impression: Critically ill with persistent sepsis and respiratory failure. Acute kidney injury with requiring hemodialysis. Prognosis guarded. Johnathon Orozco MD Sep 25, 2017 09:49
--- NOTE | 2017-09-25 10:01 | RADRPT ---
EXAM DATE/TIME: 09/25/2017 09:36 [facility] COMPARISON: CT ABDOMEN & PELVIS W/O CONTRAST, September 18, 2017, 15:55. INDICATIONS : General abdomen pain. Evaluate for abscess. ORAL CONTRAST: Prescribed oral contrast ingested. RADIATION DOSE: 16.82 CTDIvol (mGy) MEDICAL HISTORY : None SURGICAL HISTORY : Colectomy. ENCOUNTER: Initial ACUITY: 1 week PAIN SCALE: 2/10 LOCATION: Abdomen. TECHNIQUE: Volumetric scanning of the abdomen and pelvis was performed. Using automated exposure control and ad justment of the mA and/or kV according to patient size, radiation dose was kept as low as reasonably achievable to obtain optimal diagnostic quality images. DICOM format image data is available electro nically for review and comparison. FINDINGS: LOWER LUNGS: Small pleural effusions and left basilar consolidation. LIVER: Homogeneous density with hepatic low densities, stable. There is no dilation of the biliary tree. Sm all calcified gallstone. SPLEEN: Normal size without lesion. PANCREAS: Within normal limits. KIDNEYS: Normal in size and shape. There is no mass, stone, or hydronephrosis. Right renal cyst stable. ADRENAL GLANDS: Within normal limits. VASCULAR: There is no aortic aneurysm. BOWEL/MESENTERY: The stomach, small bowel, and colon demonstrate no acute abnormality. There is no free intraperitone al air or fluid. Right-sided ileostomy. Nasogastric tube tip in stomach. ABDOMINAL WALL: Postsurgical changes with a drain in the left abdomen. RETROPERITONEUM: There is no lymphadenopathy. BLADDER: No wall thickening or mass. REPRODUCTIVE: Within normal limits. INGUINAL: There is no lymphadenopathy or hernia. MUSCULOSKELETAL: Within normal limits for patient age. CONCLUSION: 1. Minimal ascites without abscess. 2. Surgical drain left abdomen. 3. Small pleural effusions and left basilar consolidation. Right lung base has improved. 4. Stable hepatic low densities and right renal cyst. 5. Cholelithiasis. Lazarus Penaloza MD on September 25, 2017 at 9:55 Board Certified Radiologist. This report was verified electronically.
--- NOTE | 2017-09-25 10:33 | HHI.PR ---
Subjective Remarks POD#18 s/p robotic ascending colectomy/POD#14 exploratory lap with diverting ileostomy Intubated, alert, responding Objective Vital Signs Date Time Temp Pulse Resp B/P (MAP) Pulse Ox O2 Delivery O2 Flow Rate FiO2 09/25/17 09:47 100 40 09/25/17 09:47 40 09/25/17 09:23 100 100 09/25/17 09:03 100 40 09/25/17 06:00 76 09/25/17 05:37 99 40 09/25/17 04:00 98.9 73 18 153/17 (62) 100 09/25/17 04:00 73 09/25/17 04:00 40 09/25/17 02:00 68 09/25/17 01:19 100 40 09/25/17 00:00 98.4 74 19 100/74 (83) 100 09/25/17 00:00 40 09/25/17 00:00 74 09/24/17 22:00 78 09/24/17 21:15 100 40 09/24/17 20:00 40 09/24/17 20:00 100.4 72 18 148/54 (85) 100 09/24/17 20:00 72 09/24/17 18:00 73 09/24/17 16:28 100 40 09/24/17 16:00 72 09/24/17 16:00 40 09/24/17 16:00 97.4 72 18 130/48 (75) 96 09/24/17 14:56 18 09/24/17 14:51 100 100 09/24/17 14:00 78 09/24/17 12:00 40 09/24/17 12:00 98.2 72 20 154/66 (95) 98 09/24/17 12:00 72 I/O 09/24/1718 09/24/1718 09/25/17 09/25/17 07:00 15:00 23:00 07:00 15:00 23:00 Intake Total 214 ml 160 ml 1266 ml Output Total 675 ml 1265 ml 1215 ml Balance -461 ml -1105 ml 51 ml Intake Oral 0 ml IV Total 50 ml 100 ml 100 ml Tube Feeding 144 ml 0 ml 76 ml Tube Irrigant 20 ml 60 ml 120 ml Other 970 ml Output Urine Total 100 ml 75 ml 75 ml Stool Total 550 ml 150 ml 1100 ml Drainage Total 25 ml 40 ml 40 ml Hemodialysis 1000 ml Result Diagram: 09/25/17 0510 09/25/1710 Objective Remarks Abdomen soft, mildly distended, ileostomy pink, thicker output wound continued eschar (2-4 mm) to right of midpoint, healthy skin underneath wound with aguilar drainage, debrided wound, clean, repacked BRANDEN - continues brownish aguilar, less thick Assessment and Plan Assessment and Plan transverse colon polyp/sb enterotomy NEURO - responsive CV - stable off pressors PULM - tracheostomy yesterday GI - restart feeding FEN - HD, increase TF's - more urine ID - CT scan without evidence of fluid or abscess, suspect drainage from BRANDEN and wound is eschar/necrotic tissue purging Heme - stable Will need aggressive PT Condition guarded Ivory Mcclellan MD Sep 25, 2017 10:33
--- NOTE | 2017-09-25 12:58 | HHI.NPPN ---
Subjective General Problems: Anemia, Edema Renal Failure: Acute Interval History He is sitting up in a chair. Had dialysis yesterday. Still oliguric. Back on the vent. (Helena Malave) Objective Data Data Vital Signs Date Time Temp Pulse Resp B/P (MAP) Pulse Ox O2 Delivery O2 Flow Rate FiO2 09/25/17 12:18 100 40 09/25/17 10:00 80 09/25/17 09:47 100 40 09/25/17 09:47 40 09/25/17 09:23 100 100 09/25/17 09:03 100 40 09/25/17 08:00 73 09/25/17 08:00 40 09/25/17 08:00 98.7 72 18 154/60 (91) 100 09/25/17 06:00 76 09/25/17 05:37 99 40 09/25/17 04:00 98.9 73 18 153/17 (62) 100 09/25/17 04:00 73 09/25/17 04:00 40 09/25/17 02:00 68 09/25/17 01:19 100 40 09/25/17 00:00 98.4 74 19 100/74 (83) 100 09/25/17 00:00 40 09/25/17 00:00 74 09/24/17 22:00 78 09/24/17 21:15 100 40 09/24/17 20:00 40 09/24/17 20:00 100.4 72 18 148/54 (85) 100 09/24/17 20:00 72 09/24/17 18:00 73 09/24/17 16:28 100 40 09/24/17 16:00 72 09/24/17 16:00 40 09/24/17 16:00 97.4 72 18 130/48 (75) 96 09/24/17 14:56 18 09/24/17 14:51 100 100 09/24/17 14:00 78 (Helena Malave) -: 09/25/17 0510 09/25/17 0510 Imaging Last 72 hours Impressions Abdomen/Pelvis CT 09/25/17 0600 Signed Impressions: Service Date/Time: Monday, September 25, 2017 09:36 - CONCLUSION: 1. Minimal ascites without abscess. 2. Surgical drain left abdomen. 3. Small pleural effusions and left basilar consolidation. Right lung base has improved. 4. Stable hepatic low densities and right renal cyst. 5. Cholelithiasis. Lazarus Penaloza MD Chest X-Ray 09/24/17 0000 Signed Impressions: Service Date/Time: Sunday, September 24, 2017 14:34 - CONCLUSION: Trach tube in good position without pneumothorax with interval improvement in appearance the lungs. Ashu Aranda MD FACR Tubes & Lines: Perma-Cath, [place]ela Tubes & Lines Comment TLC right IJ VC left IJ A line ileostomy RLQ BRANDEN drains x 2 abd (Helena Malave. [facility]) Physical Exam General Appearance: Well Developed, Comfortable Appearance Remarks trach, sitting in chair, on vent, not in distress (Helena Malave [facility]) Throat Throat Exam: Oral Mucosa [place] & Moist (Helena Malave. [facility]) Neck Neck Exam: Neck Supple (Helena Malave) Pulmonary Resp Exam: Breath Sounds Equal, No Distress, Decreased Bases Resp Remarks vented lung sounds (Helena Malave B. [facility]) Cardiology CV Exam: Regular, Normal Sinus Rhythm (Helena Mlaave) Gastrointestinal/Abdomen GI Exam: Soft, Positive Bowel Movement, Distended, Bowel Sounds Hypoactive GI Remarks abd binder in place, BRANDEN drain in place x2 ileostomy, stoma is pink, has small output (Helena Malave B. [facility]) Genitourinary Remarks oliguric, urine is dark (Helena Malave [facility]) Musculoskeletal MS Exam: Joints Intact, Good Strength, Unable to Ambulate (Helena Malave. [facility]) Integumentary Skin Exam: Warm, Dry, Intact Skin Remarks midabdominal incision (Helena Malave) Extremeties Extremities Exam: Pedal Pulses Palpable, Moderate Edema (Helena Malave [facility]) Neurologic Neuro Exam: Alert, Awake (Helena MalaveP) Psychiatric Psych Exam: Appropriate Responses (Helena Malave) VTE Prophylaxis Device: SCDs (Helena Malave) Assessment/Plan Discussed Condition With: Patient Assessment Summary: JOSEF/Acute Renal Failure, Acute Tubular Necrosis Electrolyte Assessment: Hypocalcemia Problem List: (1) JOSEF (acute kidney injury) ICD Codes: N17.9 - Acute kidney failure, unspecified Plan: His renal function is normal at baseline Oliguric renal failure, ATN, secondary to sepsis On CRRT from 09/11-09/12. HD started on 09/13. Had been on daily HD. BUN much better. Hold HD today, possibly convert to three times weekly (MWF) this week. HD tomorrow and MWF PRN. Oliguric, monitor output, await renal recovery. On calcium acetate TID, monitor phosphorus level. Repeat the level tomorrow. (2) S/P partial colectomy ICD Codes: Z90.49 - Acquired absence of other specified parts of digestive tract Plan: He developed small bowel perforation after robotic surgery, s/p emergent ex lap with I&D 09/11 Management per surgery and CCM has ileostomy that is draining Continue supportive care for sepsis and renal failure On tube feed trickle Prognosis is guarded. (3) Sepsis ICD Codes: A41.9 - Sepsis, unspecified organism Plan: Due to above ID following, antibiotics changed, include meropenem and micafungin. monitor drug levels when appropriate (4) Hypocalcemia ICD Codes: E83.51 - Hypocalcemia Plan: On liquid vitamin D for deficiency (Helena Malave) Plan patient was seen and examined. Agree with above assessment and plan. (Nish Zhu MD) Helena Malave Sep 25, 2017 12:58 Nish Zhu MD Sep 26, 2017 09:14
[2017-09-25] MEDS: ACETAMINOPHEN 500 MG CPLT PO PRN ×2 (13:21→21:51)
--- NOTE | 2017-09-25 14:08 | HHI.IDPN ---
Subjective Subjective Remarks ID X cover is a 67 y/o CM with PMHx significant for CAD, s/p PCI and stents. He was repeatedly diagnosed with sessile polyp and underwent exploratory laparoscopy with robotic takedown of splenic flexure, colonoscopy with tattooing and robotic ascending colectomy on 09/07/17 by . Reportedly, the urine output was low and urology was consulted when despite IVF urine output did not increase. Patient was seen by and underwent cystoscopy and bilateral ureteral catheter insertion with 500 cc of urine obtained. During the hospital stay patient subsequently had abdominal distention and despite NG tube to suction continued to have worsening distention and discomfort. A KUB done earlier on the day of CT on 09/11/2017 was negative for free air but subsequent imaging showed free air so patient was emergently taken to the OR by . Patient was found to have a small bowel defect and large amounts of of bowel contents were visible in peritoneum per op note. Critical Care was consulted and patient is currently being treated for Septic Shock with multiple pressors, IVF boluses given yday. He had low urine output and Nephrology is on the case and CVVHD initiated. Patient had issues with clotting of access line so CVVHD has been interrupted off and on. Patient is currently intubated on a ventilator. Not much resp secretions. Ileostomy output ok. Platelets have been low but no obvious bleeding from any sites. Patient remains sedated on vent. Patient has been started on empiric antibiotics Zosyn IV, Vanco IV x 1 dose, Flagyl IV, Micafungin IV. Left IJ Vascath placed on 09/11/2017 ID consulted for evaluation and Mment of Septic Shock, Secondary peritonitis. Notes reviewed Had low grade temps overnight On vent - on CPAP Not SOB BP ok S/P trach WBC normal Had HD yesterday Low UOP Cultures reviewed Bronch C/S 09/20 normal angel, yeast Antibiotics Meropenem IV micafungin Current Medications Medications (Trade) Dose Ordered Sig/Emilee Route Start Time Stop Time Status Last Admin (Protonix Inj) 40 mg DAILY IVP 09/08/17 09:00 09/25/17 08:57 (Zofran Inj) 4 mg Q6H PRN IV PUSH 09/07/17 16:00 09/08/17 01:06 (Vasotec Inj) 1.25 mg Q4H PRN IV PUSH 09/07/17 16:00 Future Hold (Vasotec Inj) 2.5 mg Q6H PRN IV PUSH 09/07/17 16:00 Future Hold Potassium Chloride 100 ml @ 50 mls/hr UNSCH PRN IV 09/07/17 16:00 Potassium Chloride 100 ml @ 25 mls/hr UNSCH PRN IV-CENTRAL 09/07/17 16:00 (Heparin Inj) 5,000 units Q12H SQ 09/08/17 15:00 Future hold 09/25/17 03:12 (Narcan Inj) 0.4 mg UNSCH PRN IV PUSH 09/07/17 16:00 (Benadryl Inj) 25 mg Q6H PRN IV PUSH 09/07/17 16:00 (Norvasc) 5 mg DAILY PO 09/08/17 09:00 Future hold 09/25/17 08:57 (Toprol Xl) 25 mg DAILY PO 09/08/17 09:00 Future hold 09/10/17 09:50 (Dilaudid Pf Inj) 0.2 mg Q3H PRN IV 09/08/17 21:45 09/23/17 00:15 (Benadryl Inj) 25 mg HS PRN IV PUSH 09/10/17 20:15 Sodium Chloride 1,000 ml @ 0 mls/hr Q0M PRN OTHER 09/11/17 09:25 09/16/17 20:09 (Heparin Inj) 8,000 units UNSCH PRN IV FLUSH 09/11/17 09:30 09/17/17 15:47 Sodium Chloride 1,000 ml @ 200 mls/hr Q5H PRN IV 09/11/17 09:25 Sodium Chloride 1,000 ml @ 0 mls/hr Q0M PRN OTHER 09/11/17 09:25 (Mannitol Inj) 12.5 gm UNSCH PRN IV 09/11/17 09:30 Albumin Human 100 ml @ 60 mls/hr UNSCH PRN IV 09/11/17 09:30 09/24/17 14:45 (NS Flush) 5 ml UNSCH PRN IV FLUSH 09/11/17 09:30 09/19/17 19:57 (Heparin Inj) UNSCH PRN .XX 09/11/17 09:30 09/21/17 14:02 (Gentamicin Inj) 20 mg UNSCH PRN OTHER 09/11/17 09:30 09/22/17 20:30 (Zofran Inj) 4 mg UNSCH PRN IV PUSH 09/11/17 09:30 (Tylenol) 650 mg UNSCH PRN PO 09/11/17 09:30 09/24/17 02:03 (Benadryl) 25 mg UNSCH PRN PO 09/11/17 09:30 (Nitrostat Sl) 0.4 mg UNSCH PRN SL 09/11/17 09:30 (Catapres) 0.1 mg UNSCH PRN PO 09/11/17 09:30 (Gelfoam 12 Mm/7 Mm Top) 1 foam UNSCH PRN TOP 09/11/17 09:30 Amiodarone HCl 450 mg/Sodium Chloride 250 ml @ 33.33 mls/ hr Q7H31M PRN IV 09/11/17 12:00 09/18/17 12:19 Propofol 100 ml @ 2.895 mls/ hr TITRATE PRN IV 09/11/17 12:45 09/19/17 06:46 Sodium Chloride 1,000 ml @ 0 mls/hr UNSCH PRN OTHER 09/11/17 13:00 (KCl 40 Meq Premix Inj) *FOR DIALYSIS USE IN C... WITH DIALYSIS PRN .XX 09/11/17 13:00 (Brethine Inj) 1 mg UNSCH PRN SQ 09/11/17 16:45 Fentanyl Citrate 250 ml @ 5 mls/hr TITRATE PRN IV 09/12/17 11:00 09/19/17 06:07 (Tears Naturale Opth Soln) 1 drop Q8HR EACH EYE 09/14/17 14:00 09/25/17 13:14 (Albuterol Neb) 2.5 mg Q2HR NEB PRN NEB 09/14/17 09:00 09/23/17 10:34 (Synthroid) 50 mcg DAILY@0600 PO 09/15/17 06:00 09/25/17 05:58 (D50w (Vial) Inj) 50 ml UNSCH PRN IV PUSH 09/14/17 09:45 (Glucagon Inj) 1 mg UNSCH PRN OTHER 09/14/17 09:45 (NovoLOG SUPPLEMENTAL SCALE) 1 Q6HR SQ 09/14/17 12:00 09/21/17 00:41 (Vitamin D Liq) 2,000 units DAILY PO 09/14/17 14:30 09/25/17 08:57 (Trandate Inj) 20 mg Q2H PRN IV PUSH 09/15/17 14:00 09/25/17 06:10 (Apresoline Inj) 10 mg Q30M PRN IV PUSH 09/15/17 14:00 09/22/17 13:41 (Reglan Inj) 5 mg Q8HR IV PUSH 09/17/17 22:00 09/25/17 13:14 (Tylenol) 1,000 mg Q8H PRN PO 09/18/17 09:00 09/25/17 13:21 (Coreg) 3.125 mg Q12HR PO 09/18/17 10:00 09/25/17 08:57 Epinephrine HCl 2 mg/Dextrose 250 ml @ 22.5 mls/hr TITRATE PRN IV 09/20/17 19:45 Vasopressin 40 units/Dextrose 100 ml @ 6 mls/hr TITRATE PRN IV 09/20/17 19:45 09/21/17 02:44 Dobutamine HCl/ Dextrose 250 ml @ 11.985 mls/ hr TITRATE PRN IV 09/20/17 19:45 09/21/17 15:00 Meropenem 1000 mg/ Sodium Chloride 100 ml @ 200 mls/hr Q12H IV 09/22/17 00:00 09/25/17 13:14 Micafungin Sodium 150 mg/Sodium Chloride 150 ml @ 100 mls/hr Q24H IV 09/25/17 18:00 Lines Line sites with no e.o infection Past Medical History reviewed Allergies: Coded Allergies: No Known Allergies (Unverified Allergy, Unknown, 09/07/17) Objective . Vital Signs Date Time Temp Pulse Resp B/P (MAP) Pulse Ox O2 Delivery O2 Flow Rate FiO2 09/25/17 12:18 100 40 09/25/17 12:00 80 09/25/17 12:00 40 09/25/17 12:00 98.1 80 26 120/60 (80) 100 09/25/17 10:00 80 09/25/17 09:47 100 40 09/25/17 09:47 40 09/25/17 09:23 100 100 09/25/17 09:03 100 40 09/25/17 08:00 73 09/25/17 08:00 40 09/25/17 08:00 98.7 72 18 154/60 (91) 100 09/25/17 06:00 76 09/25/17 05:37 99 40 09/25/17 04:00 98.9 73 18 153/17 (62) 100 09/25/17 04:00 73 09/25/17 04:00 40 09/25/17 02:00 68 09/25/17 01:19 100 40 09/25/17 00:00 98.4 74 19 100/74 (83) 100 09/25/17 00:00 40 09/25/17 00:00 74 09/24/17 22:00 78 09/24/17 21:15 100 40 09/24/17 20:00 40 09/24/17 20:00 100.4 72 18 148/54 (85) 100 09/24/17 20:00 72 09/24/17 18:00 73 09/24/17 16:28 100 40 09/24/17 16:00 72 09/24/17 16:00 40 09/24/17 16:00 97.4 72 18 130/48 (75) 96 09/24/17 14:56 18 09/24/17 14:51 100 100 . Laboratory Tests Test 09/24/17 05:16 09/25/17 05:10 White Blood Count 8.5 TH/MM3 8.6 TH/MM3 Red Blood Count 2.73 MIL/MM3 2.56 MIL/MM3 Hemoglobin 8.4 GM/DL 7.8 GM/DL Hematocrit 23.9 % 22.6 % Mean Corpuscular Volume 87.5 FL 88.1 FL Mean Corpuscular Hemoglobin 30.9 PG 30.3 PG Mean Corpuscular Hemoglobin Concent 35.3 % 34.4 % Red Cell Distribution Width 14.7 % 14.5 % Platelet Count 127 TH/MM3 108 TH/MM3 Mean Platelet Volume 9.4 FL 9.7 FL Laboratory Tests Test 09/24/17 05:16 09/25/17 05:10 Blood Urea Nitrogen 117 MG/DL 74 MG/DL Creatinine 7.73 MG/DL 5.86 MG/DL Random Glucose 101 MG/DL 113 MG/DL Calcium Level 8.6 MG/DL 8.2 MG/DL Sodium Level 140 MEQ/L 142 MEQ/L Potassium Level 4.8 MEQ/L 4.4 MEQ/L Chloride Level 100 MEQ/L 101 MEQ/L Carbon Dioxide Level 22.6 MEQ/L 25.3 MEQ/L Anion Gap 17 MEQ/L 16 MEQ/L Estimat Glomerular Filtration Rate 7 ML/MIN 10 ML/MIN Phosphorus Level 5.9 MG/DL Imaging Last Impressions Chest X-Ray 09/21/17 0600 Signed Impressions: Service Date/Time: Thursday, September 21, 2017 03:33 - CONCLUSION: Slight interval worsening in aeration Michele Coleman MD Abdomen/Pelvis CT 09/18/17 0000 Signed Impressions: Service Date/Time: Monday, September 18, 2017 15:55 - CONCLUSION: 1. No evidence of intra-abdominal abscess. 2. Small bilateral pleural effusions with adjacent alveolar consolidations consistent with compressive atelectasis or pneumonia. Clinical correlation is recommended. 3. Cholelithiasis. 4. 8.5 cm right renal cyst. 5. Degenerative changes and scoliosis of the thoraco-lumbar spine. 6. 2 low-density lesions within the liver measuring 1.8 cm in the right dome and 1.2 cm in the inferior right lobe which are indeterminate on this unenhanced examination. 7. Cardiomegaly and coronary artery calcification noted. Edwin Marie MD Liver Ultrasound 09/15/17 0000 Signed Impressions: Service Date/Time: Friday, September 15, 2017 07:34 - CONCLUSION: The liver appears mildly enlarged and decreased in echogenicity concerning for edema. The gallbladder is distended with sludge. No discrete stones are visualized. There is mild wall thickening of the gallbladder present. The spleen is overall normal in size and grossly normal in echotexture. Small amount of free fluid seen adjacent to the spleen. Vida Levine MD Abdomen X-Ray 09/13/17 0000 Signed Impressions: Service Date/Time: September 10:52 - CONCLUSION: Gastric tube tip and side-port project over the stomach. Andrés Gardner MD Renal Ultrasound 09/10/17 0000 Signed Impressions: Service Date/Time: Sunday, September 10, 2017 15:17 - CONCLUSION: No evidence of mass or hydronephrosis. Andrés Gardner MD Physical Exam GENERAL: awake, focusing, NAD on the vent, comfortable on CPAP SKIN: Cool and dry. No rash or ecchymoses. Edematous HEAD: Atraumatic. Normocephalic. EYES: Pupils equal round and reactive. No scleral icterus. No injection or drainage. ENT: Intubated orally. NO nasal drainage NECK: Trachea midline. Supple, nontender, no meningeal signs. CARDIOVASCULAR: HS audible. RESPIRATORY: Clear to auscultation. Breath sounds equal bilaterally but decreased in the bases. GASTROINTESTINAL: Abdomen soft, Ostomy bag with dark green liquid stool. BRANDEN drain x 1, left drain with purulent bull fluid. Midline incision with larger open area, packed with wet to dry dressing in place. MUSCULOSKELETAL: Extremities without clubbing, cyanosis. Pedal and hand edema noted, improving : small amount of dark urine in urinary bag NEUROLOGICAL: Awake, responding, following commands. MOves all extremities Psych Cooperative IV line sites with no e.o infection. Has RIJ TLC and LSC vascath Assessment & Plan Remarks Possible new sepsis. Elevated WBC count and fever. Secondary peritonitis due to small bowel perforation s/p Enterotomy and washout , has an end ileostomy Abdominal wound infection E.cloacae. S/P robotic splenic flexure takedown on 09/07/17 S/P cystoscopy with bilateral ureteroscopies on 09/07/2017 Thrombocytopenia: sepsis, DIC - seems to have plateau Acute renal failure: prerenal, sepsis. Pulmonary infiltrate, BAL with nl resp angel Recs: Continue Meropenem IV (ASP: worsening infection while on BSA) Continue Micafungin IV Monitor progress ?Re CT A/P (last CT 09/18) Weaning per [facility] D/W Jaycee Martinez MD Sep 25, 2017 14:08
--- NOTE | 2017-09-25 17:12 | PD.WCN.NOT ---
Wound Consult Description: New ostomy teaching ordered by Communicated with: Louise RN Patient Recommendation: Midline incision: Wound VAC changes using adaptic in the base of the wound bed to cover sutures. 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 Ileostomy: Change ileostomy pouching system using 1 3/4" wafer and pouch with every VAC change and PRN for leaking. Packing mucocutaneous junction using 2x2 sterile gauze @ [address] Maxorb Extra AG over peristomal skin under the wafer with each appliance change. Empty pouch when 06/13-06/12 full Additional Information: Patient seen on for ostomy assessment and application of wound VAC to midline incision. Neg Pressure Wound Therapy Wound Location Wound Location: Midline incision Wound Description Wound bed appearance: Adipose with sutures present in base of wound bed. Minimal active clear yellow drainage. Periwound appearance: Unremarkable Settings Suction: 125 mmHg, Continuous Intensity: Low Other Information: Bridged, Windowpaned, Mushroomed Foam type: Black Number of pieces: 1 Additonal Information Packing removed from midline incision. Wound cleansed with NS and gauze. Wound bed consists of yellow adipose tissue and sutures noted in the base of the wound bed. Periwound was shaved, skin prepped and window paned to protect skin. Davion seal used on wound margin @ 9o'clock over necrotic tissue to obtain and maintain seal under window pane. Maxorb II was placed over saima superior and inferior to midline surgical wound and covered with VAC drape to keep dry, protected, and to help maintain seal. Wound was gently packed with one piece of looped black foam and anchored using 2 strips of VAC drape. The end of the looped black foam was cut in a [place] for sensitrac pad placement distal to wound bed. Wound VAC drape used over all black foam dressing to obtain seal. Machine was turned on and working properly with settings @125mmHg low continuous suction. Ostomy Type: Ileostomy Surgeon: Ivory Mcclellan MD Date of Surgery: Sep 11, 2017 Educated patient on: Plan for appliance change with wound VAC application. Additional information Stoma on right side abdomen measures <1" oval, red, moist, functioning with yellow liquid effluent from lumen noted @ 12 o'clock. Mucocutaneous junction is and was packed as requested by Dr Mcclellan using sterile 2x2 gauze. Peristomal skin was encrusted using stoma powder and Cavilon skin barrier film prior to placing Maxorb Extra AG over the peristomal skin and the secured with a 1 3/4" wafer that was window paned with stoma paste. Pouching system is laying over the wound VAC drape and will need to be changed with the wound VAC or PRN for leaks. [facility] Sep 25, 2017 17:12
[2017-09-26] VITALS (17 sets, daily range): BP systolic 107–131; BP diastolic 64–70; PULSE 72–104; RESP 18–30; TEMP 98.5–99.5; O2SAT 99–100
[2017-09-26] MEDS: HEPARIN SODIUM - SQ 10,000 UNITS/ML VIAL SQ SCH ×2 (03:57→13:56)
[2017-09-26] MEDS: METOCLOPRAMIDE HCL 10 MG/2 ML VIAL IV PUSH SCH ×3 (05:13→21:23)
[2017-09-26] MEDS: LEVOTHYROXINE SODIUM 50 MCG TAB PO SCH (05:14)
[2017-09-26] MEDS: ARTIFICIAL TEARS OPTH SOLN 15 ML BTL EACH EYE SCH ×3 (05:14→21:24)
[2017-09-26] MEDS: INSULIN ASPART SUPPLEMENTAL SCALE SQ SCH ×4 (06:00→18:00)
[2017-09-26] MEDS: ACETAMINOPHEN 500 MG CPLT PO PRN (06:19)
[2017-09-26] MEDS: METOPROLOL SUCCINATE 25 MG EXTENDED RELEASE TAB PO SCH (09:00)
[2017-09-26] MEDS: amLODIPine BESYLATE 5 MG TAB PO SCH (09:57)
[2017-09-26] MEDS: CALCIUM ACETATE 667 MG CAP PEG SCH ×3 (09:57→17:59)
[2017-09-26] MEDS: CARVEDILOL 3.125 MG TAB PO SCH ×2 (09:57→21:23)
[2017-09-26] MEDS: PANTOPRAZOLE SODIUM 40 MG VIAL IVP SCH (09:58)
[2017-09-26] MEDS: CHOLECALCIFEROL (VIT D3) LIQ 400 UNITS/ML 50 ML BOTTLE PO SCH (09:59)
[2017-09-26 10:32] LABS: HEMATOCRIT 26.6 % (39.0-51.0); HEMOGLOBIN 9.1 GM/DL (13.0-17.0); MEAN CELL VOLUME 88.1 FL (80.0-100.0); MEAN CORPUSCULAR HEMOGLOBIN 30.1 PG (27.0-34.0); MEAN CORPUSCULAR HGB CONC 34.2 % (32.0-36.0); MEAN PLATELET VOLUME 9.9 FL (7.0-11.0); PLATELET COUNT 118 TH/MM3 (150-450); RED BLOOD COUNT 3.03 MIL/MM3 (4.50-5.90); RED CELL DISTRIBUTION WIDTH 14.9 % (11.6-17.2); WHITE BLOOD COUNT 7.4 TH/MM3 (4.0-11.0)
[2017-09-26 11:00] LABS: BICARBONATE 22.6 MEQ/L (21.0-32.0); CALCIUM 8.8 MG/DL (8.5-10.1); CREATININE 8.3 MG/DL (0.60-1.30)
--- NOTE | 2017-09-26 11:19 | HHI.IDPN ---
Subjective Subjective Remarks is a 67 y/o CM with PMHx significant for CAD, s/p PCI and stents. He was repeatedly diagnosed with sessile polyp and underwent exploratory laparoscopy with robotic takedown of splenic flexure, colonoscopy with tattooing and robotic ascending colectomy on 09/07/17 by . Reportedly, the urine output was low and urology was consulted when despite IVF urine output did not increase. Patient was seen by and underwent cystoscopy and bilateral ureteral catheter insertion with 500 cc of urine obtained. During the hospital stay patient subsequently had abdominal distention and despite NG tube to suction continued to have worsening distention and discomfort. A KUB done earlier on the day of CT on 09/11/2017 was negative for free air but subsequent imaging showed free air so patient was emergently taken to the OR by . Patient was found to have a small bowel defect and large amounts of of bowel contents were visible in peritoneum per op note. Critical Care was consulted and patient is currently being treated for Septic Shock with multiple pressors, IVF boluses given yday. He had low urine output and Nephrology is on the case and CVVHD initiated. Patient had issues with clotting of access line so CVVHD has been interrupted off and on. Patient is currently intubated on a ventilator. Not much resp secretions. Ileostomy output ok. Platelets have been low but no obvious bleeding from any sites. Patient remains sedated on vent. Patient has been started on empiric antibiotics Zosyn IV, Vanco IV x 1 dose, Flagyl IV, Micafungin IV. Left IJ Vascath placed on 09/11/2017 ID consulted for evaluation and Mment of Septic Shock, Secondary peritonitis. Overnight events reviewed with RN Chart reviewed since last seen by me. Now has wound vac for at surgery site. Shows a thumbs up and smiles. No fevers No rash No diarrhea On vent - on CPAP Stood by bedside with PT. Not SOB BP ok S/P trach WBC normal Low UOP, Cr and BUN high today. Nephrology following. Antibiotics Current Medications Medications (Trade) Dose Ordered Sig/Emilee Route Start Time Stop Time Status Last Admin (Protonix Inj) 40 mg DAILY IVP 09/08/17 09:00 09/26/17 09:58 (Zofran Inj) 4 mg Q6H PRN IV PUSH 09/07/17 16:00 09/08/17 01:06 (Vasotec Inj) 1.25 mg Q4H PRN IV PUSH 09/07/17 16:00 Future Hold (Vasotec Inj) 2.5 mg Q6H PRN IV PUSH 09/07/17 16:00 Future Hold Potassium Chloride 100 ml @ 50 mls/hr UNSCH PRN IV 09/07/17 16:00 Potassium Chloride 100 ml @ 25 mls/hr UNSCH PRN IV-CENTRAL 09/07/17 16:00 (Heparin Inj) 5,000 units Q12H SQ 09/08/17 15:00 Future hold 09/26/17 03:57 (Narcan Inj) 0.4 mg UNSCH PRN IV PUSH 09/07/17 16:00 (Benadryl Inj) 25 mg Q6H PRN IV PUSH 09/07/17 16:00 (Norvasc) 5 mg DAILY PO 09/08/17 09:00 Future hold 09/26/17 09:57 (Toprol Xl) 25 mg DAILY PO 09/08/17 09:00 Future hold 09/10/17 09:50 (Dilaudid Pf Inj) 0.2 mg Q3H PRN IV 09/08/17 21:45 09/23/17 00:15 (Benadryl Inj) 25 mg HS PRN IV PUSH 09/10/17 20:15 Sodium Chloride 1,000 ml @ 0 mls/hr Q0M PRN OTHER 09/11/17 09:25 09/16/17 20:09 (Heparin Inj) 8,000 units UNSCH PRN IV FLUSH 09/11/17 09:30 09/17/17 15:47 Sodium Chloride 1,000 ml @ 200 mls/hr Q5H PRN IV 09/11/17 09:25 Sodium Chloride 1,000 ml @ 0 mls/hr Q0M PRN OTHER 09/11/17 09:25 (Mannitol Inj) 12.5 gm UNSCH PRN IV 09/11/17 09:30 Albumin Human 100 ml @ 60 mls/hr UNSCH PRN IV 09/11/17 09:30 09/24/17 14:45 (NS Flush) 5 ml UNSCH PRN IV FLUSH 09/11/17 09:30 09/19/17 19:57 (Heparin Inj) UNSCH PRN .XX 09/11/17 09:30 09/21/17 14:02 (Gentamicin Inj) 20 mg UNSCH PRN OTHER 09/11/17 09:30 09/22/17 20:30 (Zofran Inj) 4 mg UNSCH PRN IV PUSH 09/11/17 09:30 (Tylenol) 650 mg UNSCH PRN PO 09/11/17 09:30 09/24/17 02:03 (Benadryl) 25 mg UNSCH PRN PO 09/11/17 09:30 (Nitrostat Sl) 0.4 mg UNSCH PRN SL 09/11/17 09:30 (Catapres) 0.1 mg UNSCH PRN PO 09/11/17 09:30 (Gelfoam 12 Mm/7 Mm Top) 1 foam UNSCH PRN TOP 09/11/17 09:30 Amiodarone HCl 450 mg/Sodium Chloride 250 ml @ 33.33 mls/ hr Q7H31M PRN IV 09/11/17 12:00 09/18/17 12:19 Propofol 100 ml @ 2.895 mls/ hr TITRATE PRN IV 09/11/17 12:45 09/19/17 06:46 Sodium Chloride 1,000 ml @ 0 mls/hr UNSCH PRN OTHER 09/11/17 13:00 (KCl 40 Meq Premix Inj) *FOR DIALYSIS USE IN C... WITH DIALYSIS PRN .XX 09/11/17 13:00 (Brethine Inj) 1 mg UNSCH PRN SQ 09/11/17 16:45 Fentanyl Citrate 250 ml @ 5 mls/hr TITRATE PRN IV 09/12/17 11:00 09/19/17 06:07 (Tears Naturale Opth Soln) 1 drop Q8HR EACH EYE 09/14/17 14:00 09/26/17 05:14 (Albuterol Neb) 2.5 mg Q2HR NEB PRN NEB 09/14/17 09:00 09/23/17 10:34 (Synthroid) 50 mcg DAILY@0600 PO 09/15/17 06:00 09/26/17 05:14 (D50w (Vial) Inj) 50 ml UNSCH PRN IV PUSH 09/14/17 09:45 (Glucagon Inj) 1 mg UNSCH PRN OTHER 09/14/17 09:45 (NovoLOG SUPPLEMENTAL SCALE) 1 Q6HR SQ 09/14/17 12:00 09/21/17 00:41 (Vitamin D Liq) 2,000 units DAILY PO 09/14/17 14:30 09/26/17 09:59 (Trandate Inj) 20 mg Q2H PRN IV PUSH 09/15/17 14:00 09/25/17 06:10 (Apresoline Inj) 10 mg Q30M PRN IV PUSH 09/15/17 14:00 09/22/17 13:41 (Reglan Inj) 5 mg Q8HR IV PUSH 09/17/17 22:00 09/26/17 05:13 (Tylenol) 1,000 mg Q8H PRN PO 09/18/17 09:00 09/26/17 06:19 (Coreg) 3.125 mg Q12HR PO 09/18/17 10:00 09/26/17 09:57 Epinephrine HCl 2 mg/Dextrose 250 ml @ 22.5 mls/hr TITRATE PRN IV 09/20/17 19:45 Vasopressin 40 units/Dextrose 100 ml @ 6 mls/hr TITRATE PRN IV 09/20/17 19:45 09/21/17 02:44 Dobutamine HCl/ Dextrose 250 ml @ 11.985 mls/ hr TITRATE PRN IV 09/20/17 19:45 09/21/17 15:00 Meropenem 1000 mg/ Sodium Chloride 100 ml @ 200 mls/hr Q12H IV 09/22/17 00:00 09/25/17 23:51 Micafungin Sodium 150 mg/Sodium Chloride 150 ml @ 100 mls/hr Q24H IV 09/25/17 18:00 09/25/17 17:40 (Phoslo) 667 mg TID PEG 09/26/17 09:00 09/26/17 09:57 Lines Line sites with no e.o infection Past Medical History reviewed Allergies: Coded Allergies: No Known Allergies (Unverified Allergy, Unknown, 09/07/17) Objective . Vital Signs Date Time Temp Pulse Resp B/P (MAP) Pulse Ox O2 Delivery O2 Flow Rate FiO2 09/26/17 08:18 100 40 09/26/17 06:00 88 09/26/17 04:36 40 09/26/17 04:36 100 40 09/26/17 04:00 40 09/26/17 04:00 99.5 88 18 131/68 (89) 100 09/26/17 04:00 88 09/26/17 02:00 72 09/26/17 01:02 100 40 09/26/17 00:00 77 09/26/17 00:00 98.9 77 23 117/69 (85) 99 09/26/17 00:00 40 09/25/17 22:00 78 09/25/17 20:00 98.8 76 24 117/64 (81) 100 Arterial Line 09/25/17 20:00 40 09/25/17 20:00 76 09/25/17 19:46 100 40 09/25/17 18:00 77 09/25/17 16:03 100 40 09/25/17 16:00 74 09/25/17 16:00 40 09/25/17 16:00 98.4 74 22 120/52 (74) 99 09/25/17 14:21 24 09/25/17 14:00 78 09/25/17 12:18 100 40 09/25/17 12:00 80 09/25/17 12:00 40 09/25/17 12:00 98.1 80 26 120/60 (80) 100 . Laboratory Tests Test 09/25/17 05:10 09/26/17 09:19 White Blood Count 8.6 TH/MM3 7.4 TH/MM3 Red Blood Count 2.56 MIL/MM3 3.03 MIL/MM3 Hemoglobin 7.8 GM/DL 9.1 GM/DL Hematocrit 22.6 % 26.6 % Mean Corpuscular Volume 88.1 FL 88.1 FL Mean Corpuscular Hemoglobin 30.3 PG 30.1 PG Mean Corpuscular Hemoglobin Concent 34.4 % 34.2 % Red Cell Distribution Width 14.5 % 14.9 % Platelet Count 108 TH/MM3 118 TH/MM3 Mean Platelet Volume 9.7 FL 9.9 FL Laboratory Tests Test 09/25/17 05:10 09/26/17 09:19 Blood Urea Nitrogen 74 MG/DL 107 MG/DL Creatinine 5.86 MG/DL 8.30 MG/DL Random Glucose 113 MG/DL 109 MG/DL Calcium Level 8.2 MG/DL 8.8 MG/DL Phosphorus Level 5.9 MG/DL Sodium Level 142 MEQ/L 139 MEQ/L Potassium Level 4.4 MEQ/L 4.9 MEQ/L Chloride Level 101 MEQ/L 99 MEQ/L Carbon Dioxide Level 25.3 MEQ/L 22.6 MEQ/L Anion Gap 16 MEQ/L 17 MEQ/L Estimat Glomerular Filtration Rate 10 ML/MIN 7 ML/MIN Imaging Last Impressions Chest X-Ray 09/21/17 0600 Signed Impressions: Service Date/Time: Thursday, September 21, 2017 03:33 - CONCLUSION: Slight interval worsening in aeration Michele Coleman MD Abdomen/Pelvis CT 09/18/17 0000 Signed Impressions: Service Date/Time: Monday, September 18, 2017 15:55 - CONCLUSION: 1. No evidence of intra-abdominal abscess. 2. Small bilateral pleural effusions with adjacent alveolar consolidations consistent with compressive atelectasis or pneumonia. Clinical correlation is recommended. 3. Cholelithiasis. 4. 8.5 cm right renal cyst. 5. Degenerative changes and scoliosis of the thoraco-lumbar spine. 6. 2 low-density lesions within the liver measuring 1.8 cm in the right dome and 1.2 cm in the inferior right lobe which are indeterminate on this unenhanced examination. 7. Cardiomegaly and coronary artery calcification noted. Edwin Marie MD Liver Ultrasound 09/15/17 0000 Signed Impressions: Service Date/Time: Friday, September 15, 2017 07:34 - CONCLUSION: The liver appears mildly enlarged and decreased in echogenicity concerning for edema. The gallbladder is distended with sludge. No discrete stones are visualized. There is mild wall thickening of the gallbladder present. The spleen is overall normal in size and grossly normal in echotexture. Small amount of free fluid seen adjacent to the spleen. Vida Levine MD Abdomen X-Ray 09/13/17 0000 Signed Impressions: Service Date/Time: September 10:52 - CONCLUSION: Gastric tube tip and side-port project over the stomach. Andrés Gardner MD Renal Ultrasound 09/10/17 0000 Signed Impressions: Service Date/Time: Sunday, September 10, 2017 15:17 - CONCLUSION: No evidence of mass or hydronephrosis. Andrés Gardner MD Physical Exam GENERAL: awake, focusing, NAD on the vent, comfortable on CPAP SKIN: Cool and dry. No rash or ecchymoses. Edematous HEAD: Atraumatic. Normocephalic. EYES: Pupils equal round and reactive. No scleral icterus. No injection or drainage. ENT: Intubated orally. NO nasal drainage NECK: Trachea midline. Supple, nontender, no meningeal signs. CARDIOVASCULAR: HS audible. RESPIRATORY: Clear to auscultation. Breath sounds equal bilaterally but decreased in the bases. GASTROINTESTINAL: Abdomen soft, Ostomy bag with dark green liquid stool. BRANDEN drain x 1, left drain with purulent bull fluid. Midline incision with larger open area, packed with wet to dry dressing in place. MUSCULOSKELETAL: Extremities without clubbing, cyanosis. Pedal and hand edema noted, improving : small amount of dark urine in urinary bag NEUROLOGICAL: Awake, responding, following commands. MOves all extremities Psych Cooperative IV line sites with no e.o infection. Has RIJ TLC and LSC vascath Assessment & Plan Remarks Possible new sepsis. Elevated WBC count and fever. Secondary peritonitis due to small bowel perforation s/p Enterotomy and washout , has an end ileostomy Abdominal wound infection E.cloacae. S/P robotic splenic flexure takedown on 09/07/17 S/P cystoscopy with bilateral ureteroscopies on 09/07/2017 Thrombocytopenia: sepsis, DIC - seems to have plateau Acute renal failure: prerenal, sepsis. Pulmonary infiltrate, BAL with nl resp angel Recs: DC Meropenem IV DC Micafungin IV (completed 13 day course for [place] peritonitis) CT Abd/Pelvis with no abscesses. Current source of infection to be treated is midline surgical incision with E.cloacae. Start levaquin oral renal dose adjusted. D/W RN Follow clinically. Lu Orozco MD Sep 26, 2017 11:19
--- NOTE | 2017-09-26 11:28 | HHI.NPPN ---
Subjective General Problems: Anemia, Edema Renal Failure: Acute Interval History On CPAP trial, 40%. Due today for dialysis. (Helena Malave) Objective Data Data Vital Signs Date Time Temp Pulse Resp B/P (MAP) Pulse Ox O2 Delivery O2 Flow Rate FiO2 09/26/17 08:18 100 40 09/26/17 06:00 88 09/26/17 04:36 40 09/26/17 04:36 100 40 09/26/17 04:00 40 09/26/17 04:00 99.5 88 18 131/68 (89) 100 09/26/17 04:00 88 09/26/17 02:00 72 09/26/17 01:02 100 40 09/26/17 00:00 77 09/26/17 00:00 98.9 77 23 117/69 (85) 99 09/26/17 00:00 40 09/25/17 22:00 78 09/25/17 20:00 98.8 76 24 117/64 (81) 100 Arterial Line 09/25/17 20:00 40 09/25/17 20:00 76 09/25/17 19:46 100 40 09/25/17 18:00 77 09/25/17 16:03 100 40 09/25/17 16:00 74 09/25/17 16:00 40 09/25/17 16:00 98.4 74 22 120/52 (74) 99 09/25/17 14:21 24 09/25/17 14:00 78 09/25/17 12:18 100 40 09/25/17 12:00 80 09/25/17 12:00 40 09/25/17 12:00 98.1 80 26 120/60 (80) 100 (Helena Malave) -: 09/26/17 0919 09/26/17 0919 Imaging Last 72 hours Impressions Abdomen/Pelvis CT 09/25/17 0600 Signed Impressions: Service Date/Time: Monday, September 25, 2017 09:36 - CONCLUSION: 1. Minimal ascites without abscess. 2. Surgical drain left abdomen. 3. Small pleural effusions and left basilar consolidation. Right lung base has improved. 4. Stable hepatic low densities and right renal cyst. 5. Cholelithiasis. Lazarus Penaloza MD Chest X-Ray 09/24/17 0000 Signed Impressions: Service Date/Time: Sunday, September 24, 2017 14:34 - CONCLUSION: Trach tube in good position without pneumothorax with interval improvement in appearance the lungs. Ashu Aranda MD FACR Tubes & Lines: Perma-Cath, Canela Tubes & Lines Comment TLC right IJ VC left IJ A line ileostomy RLQ BRANDEN drains x 2 abd (Helena Malave) Physical Exam General Appearance: Well Developed, Comfortable Appearance Remarks trach, sitting in chair, on vent, not in distress (Helena Malave) Throat Throat Exam: Oral Mucosa [place] & Moist Throat Remarks trach (Helena Malave) Neck Neck Exam: Neck Supple (Helena Malave) Pulmonary Resp Exam: Breath Sounds Equal, No Distress, Decreased Bases Resp Remarks vented lung sounds (Helena Malave) Cardiology CV Exam: Regular, Normal Sinus Rhythm (Helena Malave) Gastrointestinal/Abdomen GI Exam: Soft, Positive Bowel Movement, Distended, Bowel Sounds Hypoactive GI Remarks abd binder in place, BRANDEN drain in place x2 ileostomy, stoma is pink, has small output (Helena Malave) Genitourinary Remarks oliguric, urine is dark (Helena Malave) Musculoskeletal MS Exam: Joints Intact, Good Strength, Unable to Ambulate (Helena Malave) Integumentary Skin Exam: Warm, Dry, Intact Skin Remarks midabdominal incision (Helena Malave) Extremeties Extremities Exam: Pedal Pulses Palpable, Moderate Edema (Helena Malave) Neurologic Neuro Exam: Alert, Awake (Helena Malave) Psychiatric Psych Exam: Appropriate Responses (Helena Malave) VTE Prophylaxis Device: SCDs (Helena Malave) Assessment/Plan Discussed Condition With: Patient Assessment Summary: JOSEF/Acute Renal Failure, Acute Tubular Necrosis Electrolyte Assessment: Hypocalcemia Problem List: (1) JOSEF (acute kidney injury) ICD Codes: N17.9 - Acute kidney failure, unspecified Plan: His renal function is normal at baseline Oliguric renal failure, ATN, secondary to sepsis On CRRT from 09/11-09/12. HD started on 09/13. Converted to HD support three times weekly (MWF), had required daily treatments. Will perform 4 hours of HD for clearance. Oliguric, monitor output, await renal recovery. On calcium acetate TID, monitor phosphorus level. Avoid nephrotoxic agents. (2) S/P partial colectomy ICD Codes: Z90.49 - Acquired absence of other specified parts of digestive tract Plan: He developed small bowel perforation after robotic surgery, s/p emergent ex lap with I&D 09/11 Management per surgery and CCM has ileostomy that is draining Continue supportive care for sepsis and renal failure On tube feed trickle Prognosis is guarded. (3) Sepsis ICD Codes: A41.9 - Sepsis, unspecified organism Plan: Due to above ID following, antibiotics changed, include meropenem and micafungin. monitor drug levels when appropriate (4) Hypocalcemia ICD Codes: E83.51 - Hypocalcemia Plan: On liquid vitamin D for deficiency (Helena Malave) Plan patient was seen and examined. Agree with above assessment and plan. Dialysis today. No signs of renal recovery. Remains oliguric. (Nish Zhu MD) Helena Malave Sep 26, 2017 11:28 Nish Zhu MD Sep 26, 2017 21:23
[2017-09-26 11:34] LABS: PHOSPHORUS 8.7 MG/DL (2.5-4.9)
--- NOTE | 2017-09-26 14:48 | PD.WCN.NOT ---
Wound Consult Description: Midline incision Communicated with: Patient patient registrar RN Bashir Day shift RN Binta Recommendation: Midline incision: Wound VAC changes using adaptic in the base of the wound bed to cover sutures. Starting this Sunday09/28/17 (Wound VAC to be changed by dry box tender) and then every -W- dressing changes with settings @125mmHg low continuous suction. Ileostomy: Change ileostomy pouching system using 1 3/4" wafer and pouch with every VAC change and PRN for leaking. Packing mucocutaneous junction using 2x2 sterile gauze @ [address] Maxorb Extra AG over peristomal skin under the wafer with each appliance change. Empty pouch when 1/3-1/2 full Additional Information: *Late entry* Patient seen this morning at change of shift for ostomy assessment and wound VAC assessment. Neg Pressure Wound Therapy Wound Location Wound Location: Midline incision Machine working properly without leaks noted. Wound VAC to be changed 09/28/17 by dry box tender Settings Suction: 125 mmHg, Continuous Intensity: Low Other Information: Bridged, Windowpaned, Mushroomed Foam type: Black Number of pieces: 1 Ostomy Type: Ileostomy Surgeon: Ivory Mcclellan MD Date of Surgery: Sep 11, 2017 Educated patient on: Moist red stoma. Functioning stoma. Needs to be emptied when 1/3-1/2 full. Appliance to be changed Sunday with wound VAC dressing change to midline incision. Additional information Patient seen early this morning during change of shift. Stoma is red, oval, moist, protruding, functioning with dark green/brown liquid effluent noted in pouch that was not emptied by credit underwriter, however communicated to both RN's. Midline incision wound VAC dressing is working properly without leaks noted. [facility] Schroeder [facility] Sep 26, 2017 14:48
--- NOTE | 2017-09-26 15:08 | HHI.CCPN ---
Subjective Remarks/Hospital Course 67-year-old very pleasant gentleman initially admitted for same day surgery for polyp removal. Due to some complications in the OR he required a colonoscopy during the surgery and now he is postop day 4 status post robotic ascending colectomy. He also required bilateral ureteral catheter placement by urology. Postoperatively he was given Toradol, received 12 doses. He is now on IVF, urine output is very low and he has cola colored urine. He continues to be profoundly acidotic and the x-ray today shows pneumoperitoneum that is new compared to previous images. The patient's surgeon Dr. Mcclellan is at the bedside and she is taking him immediately to operating room for a revision. The patient during my exam is not in distress. 09/12: Remains very critical in septic shock. CVVH started yesterday. Remains on Levophed, dontrell-synephrine and and vasopressin plus stress dose steroids. s/p Small bowel enterotomy with leakage of small bowel contents, s/p diverting ileostomy. WBC up to 19.5, platelet count 64 today 09/13: Continues to be intubated remains critical but slight improvement in hemodynamics. Levophed is down to 12 mcg/m remains on vasopressin. Dontrell- Synephrine was restarted overnight currently at 60 mcg/m but will wean to DC. Platelet count further down now 45 most likely from sepsis and consumption. Check hit screen. CVVH filter clot transitioning to hemodialysis today. Appreciate ID consult. WBC count is up to 25.2 today Subjective 09/14: Afebrile. Currently only on vasopressin to maintain mean arterial pressure greater than equal to 65. Norepinephrine is been discontinued along with Dontrell-Synephrine. Platelets currently 31. LDH, haptoglobin and peripheral smear pending. No bleeding apparent. 09/15: May need to replace HD catheter, flow sluggish. Tapering vasopressors but platelets remain low. 09/16. Platelet count 56,[address] new hemodialysis catheter. Unfortunately there are no access it is available in the neck. Examination of the groins reveals that the areas are much too contaminated to allow for line placement. The only sites available are subclavian approach. I have discussed this with Dr. Breen and he agrees to proceed with subclavian placement. This should not be a situation requiring long-term hemodialysis. MAURICE panel negative. 09/17: Remains intubated sedated, new hemodialysis catheter placed today. Plan for hemodialysis today. WBC count 11.9 to 18.4 today, but patient remains on stress dose steroids. Start weaning hydrocortisone. Urine output remains minimal. Platelet count improving 66 today 09/18: Remains critical remains hemodynamically stable but increasing brownish thick output from the bilateral BRANDEN drains. Midline incision with some eschar formation Dr. Mcclellan made aware. CT of the abdomen pelvis stat to rule out abscess/fluid collections. CBC and CMP are pending today 09/19: Remains intubated off sedation patient able to follow commands but significant muscular weakness especially lower extremities. Off pressors. He remains oliguric to anuric. CT abdomen pelvis did not show any drainable fluid collections. CBC starting to trend down 16.6 to 13.8. Will discontinue stress dose steroids today 09/20: Wakes up easily on low dose propofol. Plan for HD with fluid removal today. Hemodynamically stable. Urine output 120 mL in 24 hours. Hb 7.6 yesterday, will repeat am. no transfusion at this time. Possible extubation today after hemodialysis 09/21: hypoxia improving. remains in shock on multiple vasopressors and inotropes. critically ill. 09/22: off vasopressors. clinically improving and awake, alert. still failing any weaning attempts. long discussion with and patient, and we all agree trach is the best option for him. will likely plan for Sunday. 09/23: doing well. awake. alert. denies complaints. ROS negative. 09/24: awake. plan for trach today. still failing weaning attempts. 09/25: Status post tracheostomy yesterday. Awake and alert. Awaiting CT abdomen pelvis. 09/26: Awake and alert. Tolerating CPAP trials. Objective Vital Signs Date Time Temp Pulse Resp B/P (MAP) Pulse Ox O2 Delivery O2 Flow Rate FiO2 09/26/17 14:00 92 09/26/17 13:06 40 09/26/17 13:05 99 T-piece 6.00 09/26/17 12:00 99.2 24 128/67 (87) Intake and Output 09/26/17 09/26/17 09/27/17 08:00 16:00 00:00 Intake Total 547 ml 140 ml Output Total 1410 ml 360 ml Balance -863 ml -220 ml Result Diagram: 09/26/17 0919 09/26/17 0919 Imaging Last Impressions Chest X-Ray 09/14/17 0600 Signed Impressions: Service Date/Time: Thursday, September 14, 2017 03:40 - CONCLUSION: No significant interval change. Persistent left lower lobe atelectasis versus consolidation and mild hazy bilateral lung opacity. Valeriy Gagnon MD Abdomen X-Ray 09/13/17 0000 Signed Impressions: Service Date/Time: September 10:52 - CONCLUSION: Gastric tube tip and side-port project over the stomach. Andrés Gardner MD Renal Ultrasound 09/10/17 0000 Signed Impressions: Service Date/Time: Sunday, September 10, 2017 15:17 - CONCLUSION: No evidence of mass or hydronephrosis. Andrés Gardner MD Objective Remarks GENERAL: 67-year-old male laying in bed, on mechanical ventilation via tracheostomy. SKIN: Warm and dry. See GI exam for abdominal incision HEAD: Normocephalic. EYES: MARIO. EOMI. ENT: Orotracheally intubated. . NECK: Tracheostomy in place. Left subclavian hemodialysis catheter in place, CDI CARDIOVASCULAR: Regular rate and rhythm. No JVD. RESPIRATORY: Breath sounds equal bilaterally. prvc, peep 8, fio2 40%. GASTROINTESTINAL: Abdominal binder in place. Ileostomy pink, BRANDEN drain with dark green thick secretions. Midline incision with some eschar formation MUSCULOSKELETAL: With 1+ bilateral lower extremity edema NEURO EXAM: RASS 0. following commands. Line: Central Venous Catheter Side: Left Location: Internal, Jugular A/P Assessment and Plan Neuro: Toxic metabolic encephalopathy CIM Off all sedation. severe neuromuscular weakness persists PT/OT daily Resp Acute hypoxemic respiratory failure- recurrent, persistent. HCAP Ventilator bundle. Albuterol/ipratropium aerosols every 6 hours with albuterol aerosols every 2. hours as needed dyspnea Status post tracheostomy. Daily CPAP trials. Attempt T-piece as tolerated. Continue fluid removal with hemodialysis CVS: Severe septic shock-persistent Lactic acidosis Fluid overload A fib with RVR, now NSR Coronary disease status post stent times 07/2015 History of hypertension History of dyslipidemia -s/p Aggressively fluid resuscitated, now getting fluid removed by hemodialysis -Off pressors -Holding aspirin 81 mg by mouth daily with low platelet, Resume once consistently >90 -DCd Amiodarone drip at 0.5 mcg/min, started Coreg 3.125 mg bid on 09/18/17. Cannot anticoagulate due to recent surgery and thrombocytopenia. Subcu heparin start 09/19 -2D echocardiogram 09/13 - left ventricular systolic function normal with an estimated ejection fraction in the range of 50-55%. No definite regional wall motion abnormalities. There is mild tricuspid regurgitation. PASP 44 mmHg. -On hydrocortisone sodium 50 q8 -DCd 09/19 Renal//FEN Acute kidney failure Hyponatremia -Most likely secondary to ATN/septic shock -Nephrology Dr. Zhu following, CVVH started 09/11/17, transitioned to IHD 09/13 ->10 L removed with hemodialysis 09/17, 09/18,09/19. HD again today. -Left subclavian Vas-Cath paced 09/16/17 GI/ID Small bowel enterotomy with leakage of small bowel contents, status post ex lap s/p diverting ileostomy POD 7 Peritonitis with septic shock -Status post ascending colectomy 09/07 pod 12 -Status post ex lap irrigation and diverting ileostomy for small bowel perforation pod 10 -Previous CT abdomen pelvis to rule out abscess formation-negative for fluid collection, follow-up CT abdomen pelvis on 09/25 -Continue abx per ID -Post op Management per Dr. Mcclellan general surgery -Blood cx 09/13 Enterobacter pansensitive, fluid culture 09/17 Enterobacter pansensitive HEME: Leukocytosis Normocytic anemia Thrombocytopenia-improving -Monitor CBC, coags -Thrombocytopenia secondary to sepsis, DIC -f/u LDH, haptoglobin and peripheral smear -Hematology following -Resumed sq Heparin, 09/20, HIT screen negative panel ENDO: Hyperglycemia History of gout Hypothyroidism Sliding scale insulin with NovoLog to maintain euglycemia/low regimen every 6 hours Holding allopurinol 100 mg by mouth daily for gout/home medication Levothyroxine 50 mcg by tube daily. IV levothyroxine limited to myxedema coma only at [place] due to nationwide shortage DVT GI prophylaxis -Luis M's and SCDs -Subcu heparin-resumed 09/20 -Famotidine Johnathon Orozco MD Sep 26, 2017 15:08
[2017-09-26] MEDS: ACETAMINOPHEN 325 MG TAB PO PRN (15:32)
[2017-09-26] MEDS: HEPARIN SODIUM - IV 10,000 UNITS/10 ML VIAL PRN (16:37)
[2017-09-26] MEDS: GENTAMICIN SULFATE 20 MG/2 ML VIAL OTHER PRN (16:38)
[2017-09-26] MEDS ORDERED: LEVOFLOXACIN 500 MG TAB PO SCH (17:00)
[2017-09-26] MEDS: LEVOFLOXACIN 500 MG TAB PO SCH (21:23)
[2017-09-26] MEDS: HYDROmorphone HCL PF 2 MG/ML VIAL IV PRN (21:24)
[2017-09-27] VITALS (15 sets, daily range): BP systolic 107–130; BP diastolic 55–70; PULSE 87–106; RESP 20–28; TEMP 98.7–99.4; O2SAT 97–100
[2017-09-27] MEDS: HEPARIN SODIUM - SQ 10,000 UNITS/ML VIAL SQ SCH ×2 (01:53→15:34)
[2017-09-27] MEDS: METOCLOPRAMIDE HCL 10 MG/2 ML VIAL IV PUSH SCH ×3 (06:00→23:25)
[2017-09-27] MEDS: INSULIN ASPART SUPPLEMENTAL SCALE SQ SCH ×5 (06:00→23:34)
[2017-09-27] MEDS: ARTIFICIAL TEARS OPTH SOLN 15 ML BTL EACH EYE SCH ×3 (06:00→19:48)
[2017-09-27] MEDS: LEVOTHYROXINE SODIUM 50 MCG TAB PO SCH (06:15)
[2017-09-27 06:28] LABS: HEMATOCRIT 26.3 % (39.0-51.0); MEAN CELL VOLUME 88.3 FL (80.0-100.0); MEAN PLATELET VOLUME 9.7 FL (7.0-11.0); PLATELET COUNT 103 TH/MM3 (150-450); RED BLOOD COUNT 2.98 MIL/MM3 (4.50-5.90); RED CELL DISTRIBUTION WIDTH 14.5 % (11.6-17.2); WHITE BLOOD COUNT 4.9 TH/MM3 (4.0-11.0)
[2017-09-27 07:13] LABS: BICARBONATE 28.7 MEQ/L (21.0-32.0); CALCIUM 8.3 MG/DL (8.5-10.1); CREATININE 5.25 MG/DL (0.60-1.30)
--- NOTE | 2017-09-27 08:19 | HHI.NPPN ---
Subjective General Problems: Anemia, Edema Renal Failure: Acute Interval History He was dialyzed yesterday. Urine output is slightly better. Objective Data Data Vital Signs Date Time Temp Pulse Resp B/P (MAP) Pulse Ox O2 Delivery O2 Flow Rate FiO2 09/27/17 06:00 87 09/27/17 04:00 97 09/27/17 04:00 40 09/27/17 04:00 99.4 97 23 122/70 (87) 100 09/27/17 03:39 100 40 09/27/17 02:00 89 09/27/17 00:38 100 40 09/27/17 00:00 40 09/27/17 00:00 88 09/27/17 00:00 99.2 88 25 115/66 (82) 100 09/26/17 22:00 104 09/26/17 20:12 100 40 09/26/17 20:00 40 09/26/17 20:00 98.5 100 30 107/64 (78) 100 09/26/17 20:00 100 09/26/17 18:00 103 09/26/17 16:15 40 09/26/17 16:00 99 09/26/17 16:00 40 09/26/17 16:00 98.6 89 27 129/67 (87) 99 09/26/17 14:00 92 09/26/17 13:06 40 09/26/17 13:05 40 09/26/17 13:05 99 T-piece 6.00 40 09/26/17 12:50 40 09/26/17 12:00 89 09/26/17 12:00 99.2 89 24 128/67 (87) 99 09/26/17 12:00 40 09/26/17 10:00 94 09/26/17 08:18 100 40 -: 09/27/17 0456 09/27/17 0452 Tubes & Lines: Perma-Cath, Canela Tubes & Lines Comment TLC right IJ VC left IJ A line ileostomy RLQ BRANDEN drains x 2 abd Physical Exam General Appearance: Well Developed, Comfortable Throat Throat Exam: Oral Mucosa [place] & Moist Neck Neck Exam: Neck Supple Pulmonary Resp Exam: Breath Sounds Equal, No Distress, Decreased Bases Cardiology CV Exam: Regular, Normal Sinus Rhythm Gastrointestinal/Abdomen GI Exam: Soft, Positive Bowel Movement, Distended, Bowel Sounds Hypoactive Musculoskeletal MS Exam: Joints Intact, Good Strength, Unable to Ambulate Integumentary Skin Exam: Warm, Dry, Intact Extremeties Extremities Exam: Pedal Pulses Palpable, Moderate Edema Neurologic Neuro Exam: Alert, Awake Psychiatric Psych Exam: Appropriate Responses VTE Prophylaxis Device: SCDs Assessment/Plan Discussed Condition With: Patient Assessment Summary: JOSEF/Acute Renal Failure, Acute Tubular Necrosis Electrolyte Assessment: Hypocalcemia Problem List: (1) JOSEF (acute kidney injury) ICD Codes: N17.9 - Acute kidney failure, unspecified Plan: His renal function is normal at baseline Oliguric renal failure, ATN, secondary to sepsis On CRRT from 09/11-09/12. HD started on 09/13. We will dialyze him tomorrow. Will perform 4 hours of HD for clearance. Oliguric, monitor output, await renal recovery. On calcium acetate TID, monitor phosphorus level. Avoid nephrotoxic agents. (2) S/P partial colectomy ICD Codes: Z90.49 - Acquired absence of other specified parts of digestive tract Plan: He developed small bowel perforation after robotic surgery, s/p emergent ex lap with I&D 09/11 Management per surgery and CCM has ileostomy that is draining Continue supportive care for sepsis and renal failure On tube feed trickle Prognosis is guarded. (3) Sepsis ICD Codes: A41.9 - Sepsis, unspecified organism Plan: He is only on Levaquin at this point. ID is managing. (4) Hypocalcemia ICD Codes: E83.51 - Hypocalcemia Plan: On liquid vitamin D for deficiency Nish Zhu MD Sep 27, 2017 08:19
[2017-09-27] MEDS: CALCIUM ACETATE 667 MG CAP PEG SCH ×3 (08:41→18:22)
[2017-09-27] MEDS: METOPROLOL SUCCINATE 25 MG EXTENDED RELEASE TAB PO SCH (08:41)
[2017-09-27] MEDS: amLODIPine BESYLATE 5 MG TAB PO SCH (08:41)
[2017-09-27] MEDS: CARVEDILOL 3.125 MG TAB PO SCH ×2 (08:41→19:48)
[2017-09-27] MEDS: PANTOPRAZOLE SODIUM 40 MG VIAL IVP SCH (08:41)
--- NOTE | 2017-09-27 08:49 | HHI.CCPN ---
Subjective Remarks/Hospital Course 67-year-old very pleasant gentleman initially admitted for same day surgery for polyp removal. Due to some complications in the OR he required a colonoscopy during the surgery and now he is postop day 4 status post robotic ascending colectomy. He also required bilateral ureteral catheter placement by urology. Postoperatively he was given Toradol, received 12 doses. He is now on IVF, urine output is very low and he has cola colored urine. He continues to be profoundly acidotic and the x-ray today shows pneumoperitoneum that is new compared to previous images. The patient's surgeon Dr. Mcclellan is at the bedside and she is taking him immediately to operating room for a revision. The patient during my exam is not in distress. 09/12: Remains very critical in septic shock. CVVH started yesterday. Remains on Levophed, dontrell-synephrine and and vasopressin plus stress dose steroids. s/p Small bowel enterotomy with leakage of small bowel contents, s/p diverting ileostomy. WBC up to 19.5, platelet count 64 today 09/13: Continues to be intubated remains critical but slight improvement in hemodynamics. Levophed is down to 12 mcg/m remains on vasopressin. Dontrell- Synephrine was restarted overnight currently at 60 mcg/m but will wean to DC. Platelet count further down now 45 most likely from sepsis and consumption. Check hit screen. CVVH filter clot transitioning to hemodialysis today. Appreciate ID consult. WBC count is up to 25.2 today Subjective 09/14: Afebrile. Currently only on vasopressin to maintain mean arterial pressure greater than equal to 65. Norepinephrine is been discontinued along with Dontrell-Synephrine. Platelets currently 31. LDH, haptoglobin and peripheral smear pending. No bleeding apparent. 09/15: May need to replace HD catheter, flow sluggish. Tapering vasopressors but platelets remain low. 09/16. Platelet count 56,[address] new hemodialysis catheter. Unfortunately there are no access it is available in the neck. Examination of the groins reveals that the areas are much too contaminated to allow for line placement. The only sites available are subclavian approach. I have discussed this with Dr. Breen and he agrees to proceed with subclavian placement. This should not be a situation requiring long-term hemodialysis. MAURICE panel negative. 09/17: Remains intubated sedated, new hemodialysis catheter placed today. Plan for hemodialysis today. WBC count 11.9 to 18.4 today, but patient remains on stress dose steroids. Start weaning hydrocortisone. Urine output remains minimal. Platelet count improving 66 today 09/18: Remains critical remains hemodynamically stable but increasing brownish thick output from the bilateral BRANDEN drains. Midline incision with some eschar formation Dr. Mcclellan made aware. CT of the abdomen pelvis stat to rule out abscess/fluid collections. CBC and CMP are pending today 09/19: Remains intubated off sedation patient able to follow commands but significant muscular weakness especially lower extremities. Off pressors. He remains oliguric to anuric. CT abdomen pelvis did not show any drainable fluid collections. CBC starting to trend down 16.6 to 13.8. Will discontinue stress dose steroids today 09/20: Wakes up easily on low dose propofol. Plan for HD with fluid removal today. Hemodynamically stable. Urine output 120 mL in 24 hours. Hb 7.6 yesterday, will repeat am. no transfusion at this time. Possible extubation today after hemodialysis 09/21: hypoxia improving. remains in shock on multiple vasopressors and inotropes. critically ill. 09/22: off vasopressors. clinically improving and awake, alert. still failing any weaning attempts. long discussion with and patient, and we all agree trach is the best option for him. will likely plan for Sunday. 09/23: doing well. awake. alert. denies complaints. ROS negative. 09/24: awake. plan for trach today. still failing weaning attempts. 09/25: Status post tracheostomy yesterday. Awake and alert. Awaiting CT abdomen pelvis. 09/26: Awake and alert. Tolerating CPAP trials. 09/27: Awake and alert. Tolerated T piece for a few hours yesterday. On CPAP overnight. Underwent dialysis yesterday. Objective Vital Signs Date Time Temp Pulse Resp B/P (MAP) Pulse Ox O2 Delivery O2 Flow Rate FiO2 09/27/17 06:00 87 09/27/17 04:00 40 09/27/17 04:00 99.4 23 122/70 (87) 100 09/26/17 13:05 T-piece 6.00 Intake and Output 09/27/17 09/27/17 09/28/17 08:00 16:00 00:00 Intake Total 549 ml Output Total 1185 ml Balance -636 ml Result Diagram: 09/27/17 0456 09/27/17 0452 Imaging Last Impressions Chest X-Ray 09/14/17 0600 Signed Impressions: Service Date/Time: Thursday, September 14, 2017 03:40 - CONCLUSION: No significant interval change. Persistent left lower lobe atelectasis versus consolidation and mild hazy bilateral lung opacity. Valeriy aGgnon MD Abdomen X-Ray 09/13/17 0000 Signed Impressions: Service Date/Time: September 10:52 - CONCLUSION: Gastric tube tip and side-port project over the stomach. Andrés Gardner MD Renal Ultrasound 09/10/17 0000 Signed Impressions: Service Date/Time: Sunday, September 10, 2017 15:17 - CONCLUSION: No evidence of mass or hydronephrosis. Andrés Gardner MD Objective Remarks GENERAL: 67-year-old male laying in bed, on mechanical ventilation via tracheostomy. SKIN: Warm and dry. See GI exam for abdominal incision HEAD: Normocephalic. EYES: MARIO. EOMI. ENT: Orotracheally intubated. . NECK: Tracheostomy in place. Left subclavian hemodialysis catheter in place, CDI CARDIOVASCULAR: Regular rate and rhythm. No JVD. RESPIRATORY: Breath sounds equal bilaterally. prvc, peep 8, fio2 40%. GASTROINTESTINAL: Abdominal binder in place. Ileostomy pink, BRANDEN drain with dark green thick secretions. Midline incision with some eschar formation MUSCULOSKELETAL: With 1+ bilateral lower extremity edema NEURO EXAM: RASS 0. following commands. Line: Central Venous Catheter Side: Left Location: Internal, Jugular A/P Assessment and Plan Neuro: Toxic metabolic encephalopathy CIM Off all sedation. severe neuromuscular weakness persists PT/OT daily Resp Acute hypoxemic respiratory failure- recurrent, persistent. HCAP Ventilator bundle. Albuterol/ipratropium aerosols every 6 hours with albuterol aerosols every 2. hours as needed dyspnea Status post tracheostomy. Daily CPAP trials. Attempt T-piece as tolerated. Continue fluid removal with hemodialysis CVS: Severe septic shock-persistent Lactic acidosis Fluid overload A fib with RVR, now NSR Coronary disease status post stent times 07/2015 History of hypertension History of dyslipidemia -s/p Aggressively fluid resuscitated, now getting fluid removed by hemodialysis -Off pressors -Holding aspirin 81 mg by mouth daily with low platelet, Resume once consistently >90 -DCd Amiodarone drip at 0.5 mcg/min, started Coreg 3.125 mg bid on 09/18/17. Cannot anticoagulate due to recent surgery and thrombocytopenia. Subcu heparin start 09/19 -2D echocardiogram 09/13 - left ventricular systolic function normal with an estimated ejection fraction in the range of 50-55%. No definite regional wall motion abnormalities. There is mild tricuspid regurgitation. PASP 44 mmHg. -On hydrocortisone sodium 50 q8 -DCd 09/19 Renal//FEN Acute kidney failure Hyponatremia -Most likely secondary to ATN/septic shock -Nephrology Dr. Zhu following, CVVH started 09/11/17, transitioned to IHD 09/13 ->10 L removed with hemodialysis 09/17, 09/18,09/19. HD again today. -Left subclavian Vas-Cath paced 09/16/17 GI/ID Small bowel enterotomy with leakage of small bowel contents, status post ex lap s/p diverting ileostomy POD 7 Peritonitis with septic shock -Status post ascending colectomy 09/07 -Status post ex lap irrigation and diverting ileostomy for small bowel perforation pod 12 -Previous CT abdomen pelvis to rule out abscess formation-negative for fluid collection, follow-up CT abdomen pelvis on 09/25 -Continue abx per ID -Post op Management per Dr. Mcclellan general surgery -Blood cx 09/13 Enterobacter pansensitive, fluid culture 09/17 Enterobacter pansensitive HEME: Leukocytosis Normocytic anemia Thrombocytopenia-improving -Monitor CBC, coags -Thrombocytopenia secondary to sepsis, DIC -f/u LDH, haptoglobin and peripheral smear -Hematology following -Resumed sq Heparin, 09/20, HIT screen negative panel ENDO: Hyperglycemia History of gout Hypothyroidism Sliding scale insulin with NovoLog to maintain euglycemia/low regimen every 6 hours Holding allopurinol 100 mg by mouth daily for gout/home medication Levothyroxine 50 mcg by tube daily. IV levothyroxine limited to myxedema coma only at [place] due to nationwide shortage DVT GI prophylaxis -Luis M's and SCDs -Subcu heparin-resumed 09/20 -Famotidine Johnathon Orozco MD Sep 27, 2017 08:49
[2017-09-27] MEDS: CHOLECALCIFEROL (VIT D3) LIQ 400 UNITS/ML 50 ML BOTTLE PO SCH (09:00)
--- NOTE | 2017-09-27 10:42 | HHI.PR ---
Subjective Remarks POD#20 s/p robotic ascending colectomy/POD#16 exploratory lap with diverting ileostomy Intubated, alert, wants NGT out Objective Vital Signs Date Time Temp Pulse Resp B/P (MAP) Pulse Ox O2 Delivery O2 Flow Rate FiO2 09/27/17 10:00 104 09/27/17 08:51 40 09/27/17 08:00 98.8 94 20 130/69 (89) 100 09/27/17 08:00 92 09/27/17 06:00 87 09/27/17 04:00 97 09/27/17 04:00 40 09/27/17 04:00 99.4 97 23 122/70 (87) 100 09/27/17 03:39 100 40 09/27/17 02:00 89 09/27/17 00:38 100 40 09/27/17 00:00 40 09/27/17 00:00 88 09/27/17 00:00 99.2 88 25 115/66 (82) 100 09/26/17 22:00 104 09/26/17 20:12 100 40 09/26/17 20:00 40 09/26/17 20:00 98.5 100 30 107/64 (78) 100 09/26/17 20:00 100 09/26/17 18:00 103 09/26/17 16:15 40 09/26/17 16:00 99 09/26/17 16:00 40 09/26/17 16:00 98.6 89 27 129/67 (87) 99 09/26/17 14:00 92 09/26/17 13:06 40 09/26/17 13:05 40 09/26/17 13:05 99 T-piece 6.00 40 09/26/17 12:50 40 09/26/17 12:00 89 09/26/17 12:00 99.2 89 24 128/67 (87) 99 09/26/17 12:00 40 I/O 09/26/17 09/26/17 09/26/17 09/27/17 09/27/17 09/27/17 07:00 15:00 23:00 07:00 15:00 23:00 Intake Total 536 ml 151 ml 60 ml 549 ml Output Total 1410 ml 360 ml 630 ml 1185 ml Balance -874 ml -209 ml -570 ml -636 ml IV Total 100 ml 41 ml Tube Feeding 316 ml 429 ml Tube Irrigant 120 ml 120 ml Other 110 ml 60 ml Output Urine Total 75 ml 125 ml 50 ml Stool Total 1275 ml 360 ml 425 ml 1050 ml Drainage Total 60 ml 80 ml 85 ml Result Diagram: 09/27/176 09/27/17451 Objective Remarks Abdomen soft, mildly distended, ileostomy pink, thicker output, fairly high volume wound vac in place, edges clean BRANDEN - continues brownish aguilar, less thick, less volume Assessment and Plan Assessment and Plan transverse colon polyp/sb enterotomy NEURO - responsive CV - stable PULM - trach, T-piece trials GI - Increase TF's, ? swallow study FEN - HD MWF, watch ileo output - more urine ID - off most antibiotics per Dr. Orozco Heme - stable Continue aggressive PT Improving Ivory Mcclellan MD Sep 27, 2017 10:42
[2017-09-27] MEDS: ACETAMINOPHEN 325 MG TAB PO PRN (10:58)
--- NOTE | 2017-09-27 11:14 | HHI.IDPN ---
Subjective Subjective Remarks is a 67 y/o CM with PMHx significant for CAD, s/p PCI and stents. He was repeatedly diagnosed with sessile polyp and underwent exploratory laparoscopy with robotic takedown of splenic flexure, colonoscopy with tattooing and robotic ascending colectomy on 09/07/17 by . Reportedly, the urine output was low and urology was consulted when despite IVF urine output did not increase. Patient was seen by and underwent cystoscopy and bilateral ureteral catheter insertion with 500 cc of urine obtained. During the hospital stay patient subsequently had abdominal distention and despite NG tube to suction continued to have worsening distention and discomfort. A KUB done earlier on the day of CT on 09/11/2017 was negative for free air but subsequent imaging showed free air so patient was emergently taken to the OR by . Patient was found to have a small bowel defect and large amounts of of bowel contents were visible in peritoneum per op note. Critical Care was consulted and patient is currently being treated for Septic Shock with multiple pressors, IVF boluses given yday. He had low urine output and Nephrology is on the case and CVVHD initiated. Patient had issues with clotting of access line so CVVHD has been interrupted off and on. Patient is currently intubated on a ventilator. Not much resp secretions. Ileostomy output ok. Platelets have been low but no obvious bleeding from any sites. Patient remains sedated on vent. Patient has been started on empiric antibiotics Zosyn IV, Vanco IV x 1 dose, Flagyl IV, Micafungin IV. Left IJ Vascath placed on 09/11/2017 ID consulted for evaluation and Mment of Septic Shock, Secondary peritonitis. Overnight events reviewed with RN Chart reviewed since last seen by me. Now has wound vac for at surgery site. Shows a thumbs up and smiles. No fevers No rash No diarrhea On vent - on CPAP Stood by bedside with PT. Not SOB BP ok S/P trach WBC normal Low UOP, Cr and BUN high today. Nephrology following. Antibiotics Current Medications Medications (Trade) Dose Ordered Sig/Emilee Route Start Time Stop Time Status Last Admin (Protonix Inj) 40 mg DAILY IVP 09/08/17 09:00 09/26/17 09:58 (Zofran Inj) 4 mg Q6H PRN IV PUSH 09/07/17 16:00 09/08/17 01:06 (Vasotec Inj) 1.25 mg Q4H PRN IV PUSH 09/07/17 16:00 Future Hold (Vasotec Inj) 2.5 mg Q6H PRN IV PUSH 09/07/17 16:00 Future Hold Potassium Chloride 100 ml @ 50 mls/hr UNSCH PRN IV 09/07/17 16:00 Potassium Chloride 100 ml @ 25 mls/hr UNSCH PRN IV-CENTRAL 09/07/17 16:00 (Heparin Inj) 5,000 units Q12H SQ 09/08/17 15:00 Future hold 09/26/17 03:57 (Narcan Inj) 0.4 mg UNSCH PRN IV PUSH 09/07/17 16:00 (Benadryl Inj) 25 mg Q6H PRN IV PUSH 09/07/17 16:00 (Norvasc) 5 mg DAILY PO 09/08/17 09:00 Future hold 09/26/17 09:57 (Toprol Xl) 25 mg DAILY PO 09/08/17 09:00 Future hold 09/10/17 09:50 (Dilaudid Pf Inj) 0.2 mg Q3H PRN IV 09/08/17 21:45 09/23/17 00:15 (Benadryl Inj) 25 mg HS PRN IV PUSH 09/10/17 20:15 Sodium Chloride 1,000 ml @ 0 mls/hr Q0M PRN OTHER 09/11/17 09:25 09/16/17 20:09 (Heparin Inj) 8,000 units UNSCH PRN IV FLUSH 09/11/17 09:30 09/17/17 15:47 Sodium Chloride 1,000 ml @ 200 mls/hr Q5H PRN IV 09/11/17 09:25 Sodium Chloride 1,000 ml @ 0 mls/hr Q0M PRN OTHER 09/11/17 09:25 (Mannitol Inj) 12.5 gm UNSCH PRN IV 09/11/17 09:30 Albumin Human 100 ml @ 60 mls/hr UNSCH PRN IV 09/11/17 09:30 09/24/17 14:45 (NS Flush) 5 ml UNSCH PRN IV FLUSH 09/11/17 09:30 09/19/17 19:57 (Heparin Inj) UNSCH PRN .XX 09/11/17 09:30 09/21/17 14:02 (Gentamicin Inj) 20 mg UNSCH PRN OTHER 09/11/17 09:30 09/22/17 20:30 (Zofran Inj) 4 mg UNSCH PRN IV PUSH 09/11/17 09:30 (Tylenol) 650 mg UNSCH PRN PO 09/11/17 09:30 09/24/17 02:03 (Benadryl) 25 mg UNSCH PRN PO 09/11/17 09:30 (Nitrostat Sl) 0.4 mg UNSCH PRN SL 09/11/17 09:30 (Catapres) 0.1 mg UNSCH PRN PO 09/11/17 09:30 (Gelfoam 12 Mm/7 Mm Top) 1 foam UNSCH PRN TOP 09/11/17 09:30 Amiodarone HCl 450 mg/Sodium Chloride 250 ml @ 33.33 mls/ hr Q7H31M PRN IV 09/11/17 12:00 09/18/17 12:19 Propofol 100 ml @ 2.895 mls/ hr TITRATE PRN IV 09/11/17 12:45 09/19/17 06:46 Sodium Chloride 1,000 ml @ 0 mls/hr UNSCH PRN OTHER 09/11/17 13:00 (KCl 40 Meq Premix Inj) *FOR DIALYSIS USE IN C... WITH DIALYSIS PRN .XX 09/11/17 13:00 (Brethine Inj) 1 mg UNSCH PRN SQ 09/11/17 16:45 Fentanyl Citrate 250 ml @ 5 mls/hr TITRATE PRN IV 09/12/17 11:00 09/19/17 06:07 (Tears Naturale Opth Soln) 1 drop Q8HR EACH EYE 09/14/17 14:00 09/26/17 05:14 (Albuterol Neb) 2.5 mg Q2HR NEB PRN NEB 09/14/17 09:00 09/23/17 10:34 (Synthroid) 50 mcg DAILY@0600 PO 09/15/17 06:00 09/26/17 05:14 (D50w (Vial) Inj) 50 ml UNSCH PRN IV PUSH 09/14/17 09:45 (Glucagon Inj) 1 mg UNSCH PRN OTHER 09/14/17 09:45 (NovoLOG SUPPLEMENTAL SCALE) 1 Q6HR SQ 09/14/17 12:00 09/21/17 00:41 (Vitamin D Liq) 2,000 units DAILY PO 09/14/17 14:30 09/26/17 09:59 (Trandate Inj) 20 mg Q2H PRN IV PUSH 09/15/17 14:00 09/25/17 06:10 (Apresoline Inj) 10 mg Q30M PRN IV PUSH 09/15/17 14:00 09/22/17 13:41 (Reglan Inj) 5 mg Q8HR IV PUSH 09/17/17 22:00 09/26/17 05:13 (Tylenol) 1,000 mg Q8H PRN PO 09/18/17 09:00 09/26/17 06:19 (Coreg) 3.125 mg Q12HR PO 09/18/17 10:00 09/26/17 09:57 Epinephrine HCl 2 mg/Dextrose 250 ml @ 22.5 mls/hr TITRATE PRN IV 09/20/17 19:45 Vasopressin 40 units/Dextrose 100 ml @ 6 mls/hr TITRATE PRN IV 09/20/17 19:45 09/21/17 02:44 Dobutamine HCl/ Dextrose 250 ml @ 11.985 mls/ hr TITRATE PRN IV 09/20/17 19:45 09/21/17 15:00 Meropenem 1000 mg/ Sodium Chloride 100 ml @ 200 mls/hr Q12H IV 09/22/17 00:00 09/25/17 23:51 Micafungin Sodium 150 mg/Sodium Chloride 150 ml @ 100 mls/hr Q24H IV 09/25/17 18:00 09/25/17 17:40 (Phoslo) 667 mg TID PEG 09/26/17 09:00 09/26/17 09:57 Lines Line sites with no e.o infection Past Medical History reviewed Allergies: Coded Allergies: No Known Allergies (Unverified Allergy, Unknown, 09/07/17) Objective . Vital Signs Date Time Temp Pulse Resp B/P (MAP) Pulse Ox O2 Delivery O2 Flow Rate FiO2 09/27/17 10:00 104 09/27/17 08:51 40 09/27/17 08:00 98.8 94 20 130/69 (89) 100 09/27/17 08:00 92 09/27/17 06:00 87 09/27/17 04:00 97 09/27/17 04:00 40 09/27/17 04:00 99.4 97 23 122/70 (87) 100 09/27/17 03:39 100 40 09/27/17 02:00 89 09/27/17 00:38 100 40 09/27/17 00:00 40 09/27/17 00:00 88 09/27/17 00:00 99.2 88 25 115/66 (82) 100 09/26/17 22:00 104 09/26/17 20:12 100 40 09/26/17 20:00 40 09/26/17 20:00 98.5 100 30 107/64 (78) 100 09/26/17 20:00 100 09/26/17 18:00 103 09/26/17 16:15 40 09/26/17 16:00 99 09/26/17 16:00 40 09/26/17 16:00 98.6 89 27 129/67 (87) 99 09/26/17 14:00 92 09/26/17 13:06 40 09/26/17 13:05 40 09/26/17 13:05 99 T-piece 6.00 40 09/26/17 12:50 40 09/26/17 12:00 89 09/26/17 12:00 99.2 89 24 128/67 (87) 99 09/26/17 12:00 40 . Laboratory Tests Test 09/26/17 09:19 09/27/17 04:56 White Blood Count 7.4 TH/MM3 4.9 TH/MM3 Red Blood Count 3.03 MIL/MM3 2.98 MIL/MM3 Hemoglobin 9.1 GM/DL 9.0 GM/DL Hematocrit 26.6 % 26.3 % Mean Corpuscular Volume 88.1 FL 88.3 FL Mean Corpuscular Hemoglobin 30.1 PG 30.0 PG Mean Corpuscular Hemoglobin Concent 34.2 % 34.0 % Red Cell Distribution Width 14.9 % 14.5 % Platelet Count 118 TH/MM3 103 TH/MM3 Mean Platelet Volume 9.9 FL 9.7 FL Laboratory Tests Test 4/18/18 09:19 09/27/17 04:52 Blood Urea Nitrogen 107 MG/DL 55 MG/DL Creatinine 8.30 MG/DL 5.25 MG/DL Random Glucose 109 MG/DL 129 MG/DL Calcium Level 8.8 MG/DL 8.3 MG/DL Phosphorus Level 8.7 MG/DL Sodium Level 139 MEQ/L 140 MEQ/L Potassium Level 4.9 MEQ/L 4.3 MEQ/L Chloride Level 99 MEQ/L 100 MEQ/L Carbon Dioxide Level 22.6 MEQ/L 28.7 MEQ/L Anion Gap 17 MEQ/L 11 MEQ/L Estimat Glomerular Filtration Rate 7 ML/MIN 11 ML/MIN Imaging Last Impressions Chest X-Ray 09/21/17 0600 Signed Impressions: Service Date/Time: Thursday, September 21, 2017 03:33 - CONCLUSION: Slight interval worsening in aeration Michele Coleman MD Abdomen/Pelvis CT 09/18/17 0000 Signed Impressions: Service Date/Time: Monday, September 18, 2017 15:55 - CONCLUSION: 1. No evidence of intra-abdominal abscess. 2. Small bilateral pleural effusions with adjacent alveolar consolidations consistent with compressive atelectasis or pneumonia. Clinical correlation is recommended. 3. Cholelithiasis. 4. 8.5 cm right renal cyst. 5. Degenerative changes and scoliosis of the thoraco-lumbar spine. 6. 2 low-density lesions within the liver measuring 1.8 cm in the right dome and 1.2 cm in the inferior right lobe which are indeterminate on this unenhanced examination. 7. Cardiomegaly and coronary artery calcification noted. Edwin Marie MD Liver Ultrasound 09/15/17 0000 Signed Impressions: Service Date/Time: Friday, September 15, 2017 07:34 - CONCLUSION: The liver appears mildly enlarged and decreased in echogenicity concerning for edema. The gallbladder is distended with sludge. No discrete stones are visualized. There is mild wall thickening of the gallbladder present. The spleen is overall normal in size and grossly normal in echotexture. Small amount of free fluid seen adjacent to the spleen. Vida Levine MD Abdomen X-Ray 09/13/17 0000 Signed Impressions: Service Date/Time: September 10:52 - CONCLUSION: Gastric tube tip and side-port project over the stomach. Andrés Gardner MD Renal Ultrasound 09/10/17 0000 Signed Impressions: Service Date/Time: Sunday, September 10, 2017 15:17 - CONCLUSION: No evidence of mass or hydronephrosis. Andrés Gardner MD Physical Exam GENERAL: awake, focusing, NAD on the vent, comfortable on CPAP SKIN: Cool and dry. No rash or ecchymoses. Edematous HEAD: Atraumatic. Normocephalic. EYES: Pupils equal round and reactive. No scleral icterus. No injection or drainage. ENT: Trach site ok. NECK: Trachea midline. Supple, nontender, no meningeal signs. CARDIOVASCULAR: HS audible. RESPIRATORY: Clear to auscultation. Breath sounds equal bilaterally but decreased in the bases. GASTROINTESTINAL: Abdomen soft, Ostomy bag with dark green liquid stool. BRANDEN drain x 1, left drain with purulent bull fluid. Midline incision with larger open area, packed with wet to dry dressing in place. MUSCULOSKELETAL: Extremities without clubbing, cyanosis. Pedal and hand edema noted, improving : small amount of dark urine in urinary bag NEUROLOGICAL: Awake, responding, following commands. Moves all extremities Psych Cooperative IV line sites with no e.o infection. Assessment & Plan Remarks Possible new sepsis. Elevated WBC count and fever. Secondary peritonitis due to small bowel perforation s/p Enterotomy and washout , has an end ileostomy Abdominal wound infection E.cloacae. S/P robotic splenic flexure takedown on 09/07/17 S/P cystoscopy with bilateral ureteroscopies on 09/07/2017 Thrombocytopenia: sepsis, DIC - seems to have plateau Acute renal failure: prerenal, sepsis. Pulmonary infiltrate, BAL with nl resp angel Recs: Current source of infection to be treated is midline surgical incision with E.cloacae. Continue levaquin oral renal dose adjusted. D/W RN Follow clinically. Will follow prn. Plan on tentative 7 days for levaquin for now. Lu Orozco MD Sep 27, 2017 11:14
--- NOTE | 2017-09-27 11:19 | PD.WCN.NOT ---
Wound Consult Description: Midline incision Machine working properly without leaks noted. Wound VAC to be changed 09/28/17 by vice principal Communicated with: Dr Mcclellan RN Recommendation: Midline incision: Wound VAC changes using adaptic in the base of the wound bed to cover sutures. Starting this Sunday09/28/17 (Wound VAC to be changed by vice principal) and then every M-W-F dressing changes with settings @125mmHg low continuous suction. Maxorb Extra AG over sutures superiorly and distally to wound bed. Ileostomy: Change ileostomy pouching system using 1 3/4" wafer and pouch with every VAC change and PRN for leaking. Packing mucocutaneous junction using Maxorb Extra AG @ 3 and 11 o'clock. Empty pouch when 3-/ full Additional Information: Patient seen on [address] [place] [address] for ostomy and wound VAC assessment Neg Pressure Wound Therapy Wound Location Wound Location: Midline incision Machine working properly without leaks noted. Wound VAC to be changed 09/28/17 by vice principal Settings Suction: 125 mmHg, Continuous Intensity: Low Other Information: Bridged, Windowpaned, Mushroomed Foam type: Black Number of pieces: 1 Ostomy Type: Ileostomy Surgeon: Ivory Mcclellan MD Date of Surgery: Sep 11, 2017 Educated patient on: Dr Mcclellan to remove wound VAC Sunday09/28/17 Wound VAC to be replaced by farm mechanic Ostomy appliance change tomorrow by child protective investigator Additional information Patient seen on [address] [place] [address] for ostomy/Wound VAC assessment. Ostomy located on right side abdomen is red, oval, moist, protruding, functioning from lumen noted at 12 o'clock with yellow effluent noted in pouch that was not emptied by residential mortgage underwriter. [facility] Schroeder [facility] Sep 27, 2017 11:19
[2017-09-27] MEDS: HYDROmorphone HCL PF 2 MG/ML VIAL IV PRN (19:51)
[2017-09-28] VITALS (13 sets, daily range): BP systolic 107–140; BP diastolic 60–74; PULSE 96–112; RESP 23–27; TEMP 97.9–98.8; O2SAT 95–100
[2017-09-28] MEDS: HYDROmorphone HCL PF 2 MG/ML VIAL IV PRN ×2 (01:00→22:05)
[2017-09-28] MEDS: HEPARIN SODIUM - SQ 10,000 UNITS/ML VIAL SQ SCH ×2 (04:24→15:00)
[2017-09-28] MEDS: METOCLOPRAMIDE HCL 10 MG/2 ML VIAL IV PUSH SCH ×3 (05:25→22:05)
[2017-09-28] MEDS: LEVOTHYROXINE SODIUM 50 MCG TAB PO SCH (05:25)
[2017-09-28] MEDS: ARTIFICIAL TEARS OPTH SOLN 15 ML BTL EACH EYE SCH ×3 (05:26→22:00)
[2017-09-28 05:48] LABS: BICARBONATE 27.4 MEQ/L (21.0-32.0); CALCIUM 8.6 MG/DL (8.5-10.1); CREATININE 7.95 MG/DL (0.60-1.30)
[2017-09-28 05:54] LABS: HEMATOCRIT 26.6 % (39.0-51.0); MEAN CELL VOLUME 88.2 FL (80.0-100.0); MEAN CORPUSCULAR HEMOGLOBIN 29.7 PG (27.0-34.0); MEAN CORPUSCULAR HGB CONC 33.7 % (32.0-36.0); PLATELET COUNT 109 TH/MM3 (150-450); RED BLOOD COUNT 3.01 MIL/MM3 (4.50-5.90); RED CELL DISTRIBUTION WIDTH 14.9 % (11.6-17.2); WHITE BLOOD COUNT 3.1 TH/MM3 (4.0-11.0)
[2017-09-28] MEDS: INSULIN ASPART SUPPLEMENTAL SCALE SQ SCH (06:00)
[2017-09-28] MEDS: CHOLECALCIFEROL (VIT D3) LIQ 400 UNITS/ML 50 ML BOTTLE PO SCH (09:00)
[2017-09-28] MEDS: PANTOPRAZOLE SODIUM 40 MG VIAL IVP SCH (09:00)
[2017-09-28] MEDS: METOPROLOL SUCCINATE 25 MG EXTENDED RELEASE TAB PO SCH (09:00)
[2017-09-28] MEDS: CARVEDILOL 3.125 MG TAB PO SCH ×2 (09:00→22:05)
[2017-09-28] MEDS: amLODIPine BESYLATE 5 MG TAB PO SCH (09:00)
--- NOTE | 2017-09-28 09:03 | HHI.PR ---
Subjective Remarks POD#21 s/p robotic ascending colectomy/POD#17 exploratory lap with diverting ileostomy Intubated, alert Objective Vital Signs Date Time Temp Pulse Resp B/P (MAP) Pulse Ox O2 Delivery O2 Flow Rate FiO2 09/28/17 08:41 100 T-piece 28 09/28/17 06:00 108 09/28/17 04:00 98.7 106 25 140/74 (96) 95 09/28/17 04:00 101 09/28/17 02:00 101 09/28/17 00:00 101 09/28/17 00:00 98.8 96 23 130/67 (88) 98 09/27/17 22:00 96 09/27/17 20:47 98 T-piece 28 09/27/17 20:00 99.1 104 26 107/55 (72) 100 09/27/17 20:00 101 09/27/17 18:00 106 09/27/17 16:00 101 09/27/17 16:00 98.7 101 28 126/60 (82) 97 09/27/17 14:00 98 09/27/17 12:00 98 09/27/17 12:00 98.7 98 25 113/61 (78) 98 09/27/17 10:00 104 I/O 09/27/17 09/27/17 09/27/17 09/28/17 09/28/17 09/28/17 07:00 15:00 23:00 07:00 15:00 23:00 Intake Total 549 ml 378 ml Output Total 1185 ml 970 ml 965 ml Balance -636 ml -592 ml -965 ml Tube Feeding 429 ml 378 ml Tube Irrigant 120 ml Output Urine Total 50 ml 30 ml 30 ml Stool Total 1050 ml 700 ml 850 ml Drainage Total 85 ml 240 ml 85 ml Result Diagram: 09/28/17 0424 09/28/174 Objective Remarks Abdomen soft, nondistended ileostomy pink, thicker output, fairly high volume wound better vascularization, small debridement, 4-5 mm fascial defect at caudal end LUQ wound opened, similar drainage - wet-dry dressing placed BRANDEN - continues brownish aguilar Assessment and Plan Assessment and Plan transverse colon polyp/sb enterotomy NEURO - responsive CV - stable PULM - trach, T-piece trials GI - Increase TF's, ? swallow study FEN - HD MWF, watch ileo output - more urine ID - wound vac, LUQ wound opened today Heme - stable Continue aggressive PT Improving slowly Ivory Mcclellan MD Sep 28, 2017 09:03
--- NOTE | 2017-09-28 12:53 | PD.WCN.NOT ---
Wound Consult Description: Midline incision: Wound VAC changed 09/28/17 by upstairs maid' Lacie Tolentino and chief underwriter Right sided ileostomy: Ostomy appliance changed using 1 3/4" moldable wafer Light packing of mucocutaneous junction from 8 o'clock to 3 o'clock using 2 pieces of Maxorb Extra AG with tails left outside wound bed for easy removal. Communicated with: ANDREZ Malik Recommendation: Midline incision: Wound VAC changes using medium foam dressing and adaptic in the base of the wound bed to cover sutures. Every M-W-F dressing changes with settings @125mmHg low continuous suction. Maxorb Extra AG over saima superiorly and distally to wound bed. Ileostomy: Change ileostomy pouching system using 1 3/4" wafer and pouch with every VAC change and PRN for leaking. Lightly packing mucocutaneous junction deparation using Maxorb Extra AG from 8- 3 o'clock. Empty pouch when 1/3-1/2 full. Additional Information: Patient seen on with Lacie Tolentino RN, [facility]. Neg Pressure Wound Therapy Wound Location Wound Location: Midline incision Wound VAC changed 09/28/17 by ASIA Loving Wound Description Length: ~15cm Width: ~4cm Depth: ~5cm Wound bed appearance: ~50% yellow adipose tissue ~50% red granulation tissue Moist wound bed with active clear yellow drainage noted superiorly within wound with ~5 sutures in the base of wound bed Wound margins are open from 10'oclock to 8 o'clock with soft black eschar noted at 9 o'clock measuring ~1.5cm x 2cmx 0cm. Periwound appearance: Other ([place] noted superiorly and distally to wound bed with Maxorb Extra AG covering to keep dry with wound VAC drape to secure) Settings Suction: 125 mmHg, Continuous Intensity: Low Other Information: Bridged, Windowpaned, Mushroomed Foam type: Black Number of pieces: 1 Additonal Information Wound was cleansed with NS and gauze. Black granufoam was cut in a spiral cinnamon roll fashion and placed in wound bed after protecting sutures with adaptic (oil emulsion). Periwound was skin prepped with Cavilon skin barrier film and window paned using VAC drape. Wound VAC drape was used to secure foam dressing. Sensitrac pad was placed distal to wound bed over drape protecting saima covered with Maxorb Extra AG. Machine was turned on, new canister placed and suction started with settings @125mmHg low continuous suction without leaks noted. Ostomy Type: Ileostomy Surgeon: Ivory Mcclellan MD Date of Surgery: Sep 11, 2017 Additional information Ostomy pouching system removed with adhesive remover. Thick yellow effluent was noted to be pouring out from the mucocutaneous junction that was irrigated with NS and lightly packed with sterile gauze and then removed to cleanse surgical wound. Mucocutaneous junction is completely from 8-4 o'clock with depths of 2.4cm starting @ 8 o'clock and reaching 5.3cm @ 3 o'clock with a direction towards midline incision. Mucocutaneous junction was lightly and gently packed using 2 cut pieces of Maxorb Extra AG leaving both tails outside wound bed for easy removal. Peristomal skin is noted with yellow/brown necrotic tissue @ 9 o'clock measuring ~2cm x 2cm x 100% adherent slough. Maxorb Extra AG was placed over the entire mucocutaneous junction/separation and secured with a new barrier (wafer) and pouch. Stoma is red, moist, protruding, functioning with yellow thick effluent. Marie [facility] Sep 28, 2017 12:53
[2017-09-28] MEDS: CALCIUM ACETATE 667 MG CAP PEG SCH ×2 (13:00→18:00)
--- NOTE | 2017-09-28 13:47 | HHI.CCPN ---
Subjective Remarks/Hospital Course 67-year-old very pleasant gentleman initially admitted for same day surgery for polyp removal. Due to some complications in the OR he required a colonoscopy during the surgery and now he is postop day 4 status post robotic ascending colectomy. He also required bilateral ureteral catheter placement by urology. Postoperatively he was given Toradol, received 12 doses. He is now on IVF, urine output is very low and he has cola colored urine. He continues to be profoundly acidotic and the x-ray today shows pneumoperitoneum that is new compared to previous images. The patient's surgeon Dr. Mcclellan is at the bedside and she is taking him immediately to operating room for a revision. The patient during my exam is not in distress. 09/12: Remains very critical in septic shock. CVVH started yesterday. Remains on Levophed, dontrell-synephrine and and vasopressin plus stress dose steroids. s/p Small bowel enterotomy with leakage of small bowel contents, s/p diverting ileostomy. WBC up to 19.5, platelet count 64 today 09/13: Continues to be intubated remains critical but slight improvement in hemodynamics. Levophed is down to 12 mcg/m remains on vasopressin. Dontrell- Synephrine was restarted overnight currently at 60 mcg/m but will wean to DC. Platelet count further down now 45 most likely from sepsis and consumption. Check hit screen. CVVH filter clot transitioning to hemodialysis today. Appreciate ID consult. WBC count is up to 25.2 today Subjective 09/14: Afebrile. Currently only on vasopressin to maintain mean arterial pressure greater than equal to 65. Norepinephrine is been discontinued along with Dontrell-Synephrine. Platelets currently 31. LDH, haptoglobin and peripheral smear pending. No bleeding apparent. 09/15: May need to replace HD catheter, flow sluggish. Tapering vasopressors but platelets remain low. 09/16. Platelet count 56,[address] new hemodialysis catheter. Unfortunately there are no access it is available in the neck. Examination of the groins reveals that the areas are much too contaminated to allow for line placement. The only sites available are subclavian approach. I have discussed this with Dr. Breen and he agrees to proceed with subclavian placement. This should not be a situation requiring long-term hemodialysis. MAURICE panel negative. 09/17: Remains intubated sedated, new hemodialysis catheter placed today. Plan for hemodialysis today. WBC count 11.9 to 18.4 today, but patient remains on stress dose steroids. Start weaning hydrocortisone. Urine output remains minimal. Platelet count improving 66 today 09/18: Remains critical remains hemodynamically stable but increasing brownish thick output from the bilateral BRANDEN drains. Midline incision with some eschar formation Dr. Mcclellan made aware. CT of the abdomen pelvis stat to rule out abscess/fluid collections. CBC and CMP are pending today 09/19: Remains intubated off sedation patient able to follow commands but significant muscular weakness especially lower extremities. Off pressors. He remains oliguric to anuric. CT abdomen pelvis did not show any drainable fluid collections. CBC starting to trend down 16.6 to 13.8. Will discontinue stress dose steroids today 09/20: Wakes up easily on low dose propofol. Plan for HD with fluid removal today. Hemodynamically stable. Urine output 120 mL in 24 hours. Hb 7.6 yesterday, will repeat am. no transfusion at this time. Possible extubation today after hemodialysis 09/21: hypoxia improving. remains in shock on multiple vasopressors and inotropes. critically ill. 09/22: off vasopressors. clinically improving and awake, alert. still failing any weaning attempts. long discussion with and patient, and we all agree trach is the best option for him. will likely plan for Sunday. 09/23: doing well. awake. alert. denies complaints. ROS negative. 09/24: awake. plan for trach today. still failing weaning attempts. 09/25: Status post tracheostomy yesterday. Awake and alert. Awaiting CT abdomen pelvis. 09/26: Awake and alert. Tolerating CPAP trials. 09/27: Awake and alert. Tolerated T piece for a few hours yesterday. On CPAP overnight. Underwent dialysis yesterday. 09/28: On T piece since yesterday. Awake and alert. Resting comfortably. Tolerating tube feeds. Objective Vital Signs Date Time Temp Pulse Resp B/P (MAP) Pulse Ox O2 Delivery O2 Flow Rate FiO2 09/28/17 08:41 100 T-piece 28 09/28/17 06:00 108 09/28/17 04:00 98.7 25 140/74 (96) 09/26/17 13:05 6.00 Intake and Output 09/28/17 09/28/17 09/29/17 08:00 16:00 00:00 Output Total 965 ml 1000 ml Balance -965 ml -1000 ml Result Diagram: 09/28/17 0424 09/28/17 0424 Imaging Last Impressions Chest X-Ray 09/14/17 0600 Signed Impressions: Service Date/Time: Thursday, September 14, 2017 03:40 - CONCLUSION: No significant interval change. Persistent left lower lobe atelectasis versus consolidation and mild hazy bilateral lung opacity. Valeriy Gagnon MD Abdomen X-Ray 09/13/17 0000 Signed Impressions: Service Date/Time: September 10:52 - CONCLUSION: Gastric tube tip and side-port project over the stomach. Andrés Gardner MD Renal Ultrasound 09/10/17 0000 Signed Impressions: Service Date/Time: Sunday, September 10, 2017 15:17 - CONCLUSION: No evidence of mass or hydronephrosis. Andrés Gardner MD Objective Remarks GENERAL: 67-year-old male laying in bed, on T piece SKIN: Warm and dry. See GI exam for abdominal incision HEAD: Normocephalic. EYES: MARIO. EOMI. ENT: Tongue moist. NECK: Tracheostomy in place. Left subclavian hemodialysis catheter in place, CDI CARDIOVASCULAR: Regular rate and rhythm. No JVD. RESPIRATORY: Breath sounds equal bilaterally. On T piece GASTROINTESTINAL: Abdominal binder in place. Ileostomy pink, BRANDEN drain in place. midline incision with wound VAC in place MUSCULOSKELETAL: With 1+ bilateral lower extremity edema NEURO EXAM: RASS 0. following commands. Line: Central Venous Catheter Side: Left Location: Internal, Jugular A/P Assessment and Plan Neuro: Toxic metabolic encephalopathy CIM Off all sedation. severe neuromuscular weakness persists PT/OT daily Resp Acute hypoxemic respiratory failure- recurrent, persistent. HCAP Ventilator bundle. Albuterol/ipratropium aerosols every 6 hours with albuterol aerosols every 2. hours as needed dyspnea Status post tracheostomy. Daily CPAP trials. Attempt T-piece as tolerated. Continue fluid removal with hemodialysis CVS: Severe septic shock-persistent Lactic acidosis Fluid overload A fib with RVR, now NSR Coronary disease status post stent times 07/2015 History of hypertension History of dyslipidemia -s/p Aggressively fluid resuscitated, now getting fluid removed by hemodialysis -Off pressors -Holding aspirin 81 mg by mouth daily with low platelet, Resume once consistently >90 -DCd Amiodarone drip at 0.5 mcg/min, started Coreg 3.125 mg bid on 09/18/17. Cannot anticoagulate due to recent surgery and thrombocytopenia. Subcu heparin start 09/19 -2D echocardiogram 09/13 - left ventricular systolic function normal with an estimated ejection fraction in the range of 50-55%. No definite regional wall motion abnormalities. There is mild tricuspid regurgitation. PASP 44 mmHg. -On hydrocortisone sodium 50 q8 -DCd 09/19 Renal//FEN Acute kidney failure Hyponatremia -Most likely secondary to ATN/septic shock -Nephrology Dr. Zhu following, CVVH started 09/11/17, transitioned to IHD 09/13 ->10 L removed with hemodialysis 09/17, 09/18,09/19. HD again today. -Left subclavian Vas-Cath paced 09/16/17 GI/ID Small bowel enterotomy with leakage of small bowel contents, status post ex lap s/p diverting ileostomy POD 7 Peritonitis with septic shock -Status post ascending colectomy 09/07 -Status post ex lap irrigation and diverting ileostomy for small bowel perforation pod 12 -Previous CT abdomen pelvis to rule out abscess formation-negative for fluid collection, follow-up CT abdomen pelvis on 09/25 -Continue abx per ID -Post op Management per Dr. Mcclellan general surgery -Blood cx 09/13 Enterobacter pansensitive, fluid culture 09/17 Enterobacter pansensitive HEME: Leukocytosis Normocytic anemia Thrombocytopenia-improving -Monitor CBC, coags -Thrombocytopenia secondary to sepsis, DIC -f/u LDH, haptoglobin and peripheral smear -Hematology following -Resumed sq Heparin, 09/20, HIT screen negative panel ENDO: Hyperglycemia History of gout Hypothyroidism Sliding scale insulin with NovoLog to maintain euglycemia/low regimen every 6 hours Holding allopurinol 100 mg by mouth daily for gout/home medication Levothyroxine 50 mcg by tube daily. IV levothyroxine limited to myxedema coma only at [facility] due to nationwide shortage DVT GI prophylaxis -Luis M's and SCDs -Subcu heparin-resumed 09/20 -Famotidine Johnathon Orozco MD Sep 28, 2017 13:47
--- NOTE | 2017-09-28 13:52 | HHI.NPPN ---
Subjective General Problems: Anemia, Edema Renal Failure: Acute Interval History He is sleeping. at bedside. Just finished dialysis, one liter UF. (Helena Malave) Objective Data Data 09/28/17 09/29/17 19:00 07:00 Output Total 1000 ml Balance -1000 ml Hemodialysis 1000 ml Vital Signs Date Time Temp Pulse Resp B/P (MAP) Pulse Ox O2 Delivery O2 Flow Rate FiO2 09/28/17 08:41 100 T-piece 28 09/28/17 06:00 108 09/28/17 04:00 98.7 106 25 140/74 (96) 95 09/28/17 04:00 101 09/28/17 02:00 101 09/28/17 00:00 101 09/28/17 00:00 98.8 96 23 130/67 (88) 98 09/27/17 22:00 96 09/27/17 20:47 98 T-piece 28 09/27/17 20:00 99.1 104 26 107/55 (72) 100 09/27/17 20:00 101 09/27/17 18:00 106 09/27/17 16:00 101 09/27/17 16:00 98.7 101 28 126/60 (82) 97 09/27/17 14:00 98 (Helena Malave) -: 09/28/17 0424 09/28/17 0424 Imaging Last Impressions Abdomen/Pelvis CT 09/25/17 0600 Signed Impressions: Service Date/Time: Monday, September 25, 2017 09:36 - CONCLUSION: 1. Minimal ascites without abscess. 2. Surgical drain left abdomen. 3. Small pleural effusions and left basilar consolidation. Right lung base has improved. 4. Stable hepatic low densities and right renal cyst. 5. Cholelithiasis. Lazarus Penaloza MD Chest X-Ray 09/24/17 0000 Signed Impressions: Service Date/Time: Sunday, September 24, 2017 14:34 - CONCLUSION: Trach tube in good position without pneumothorax with interval improvement in appearance the lungs. Ashu Aranda MD FACR Liver Ultrasound 09/15/17 0000 Signed Impressions: Service Date/Time: Friday, September 15, 2017 07:34 - CONCLUSION: The liver appears mildly enlarged and decreased in echogenicity concerning for edema. The gallbladder is distended with sludge. No discrete stones are visualized. There is mild wall thickening of the gallbladder present. The spleen is overall normal in size and grossly normal in echotexture. Small amount of free fluid seen adjacent to the spleen. Vida Levine MD Abdomen X-Ray 09/13/17 0000 Signed Impressions: Service Date/Time: September 10:52 - CONCLUSION: Gastric tube tip and side-port project over the stomach. Andrés Gardner MD Renal Ultrasound 09/10/17 0000 Signed Impressions: Service Date/Time: Sunday, September 10, 2017 15:17 - CONCLUSION: No evidence of mass or hydronephrosis. Andrés Gardner MD Tubes & Lines: Perma-Cath, Canela Tubes & Lines Comment TLC right IJ VC left IJ A line ileostomy RLQ BRANDEN drains x 2 abd (Helena Malave B. [employer]) Physical Exam General Appearance: Well Developed, Comfortable Appearance Remarks trach, not on vent, not in distress (Helena Malave B. [employer]) Throat Throat Exam: Oral Mucosa [place] & Moist Throat Remarks trach (Helena Malave B. [employer]) Neck Neck Exam: Neck Supple (Helena Malave B. [employer]) Pulmonary Resp Exam: Breath Sounds Equal, No Distress, Decreased Bases (Helena Malave B. [employer]) Cardiology CV Exam: Regular, Normal Sinus Rhythm (Helena Malave B. [employer]) Gastrointestinal/Abdomen GI Exam: Soft, Positive Bowel Movement, Distended, Bowel Sounds Hypoactive GI Remarks abd binder in place, BRANDEN drain in place x2 ileostomy, stoma is pink, has small output (Helena Malave B. [employer]) Genitourinary Remarks oliguric, urine is dark (Helena Malave B. [employer]) Musculoskeletal MS Exam: Joints Intact, Good Strength, Unable to Ambulate (Helena Malave. [employer]) Integumentary Skin Exam: Warm, Dry, Intact Skin Remarks midabdominal incision (Helena Malave. [employer]) Extremeties Extremities Exam: Pedal Pulses Palpable, Moderate Edema (Helena Malave. [employer]) Neurologic Neuro Exam: Alert, Awake (Helena Malave) Psychiatric Psych Exam: Appropriate Responses (Helena Malave) VTE Prophylaxis Device: SCDs (Helena Malave) Assessment/Plan Discussed Condition With: Patient Assessment Summary: JOSEF/Acute Renal Failure, Acute Tubular Necrosis Electrolyte Assessment: Hypocalcemia Problem List: (1) JOSEF (acute kidney injury) ICD Codes: N17.9 - Acute kidney failure, unspecified Plan: His renal function is normal at baseline Oliguric renal failure, ATN, secondary to sepsis On CRRT from 09/11-09/12. HD started on 09/13. On MWF HD as needed. Having 4 hours of treatment time. 1L UF today. Oligoanuric, monitor output, await renal recovery. On calcium acetate TID with tube feeding, monitor phosphorus level. Avoid nephrotoxic agents. (2) S/P partial colectomy ICD Codes: Z90.49 - Acquired absence of other specified parts of digestive tract Plan: He developed small bowel perforation after robotic surgery, s/p emergent ex lap with I&D 09/11 Management per surgery and CCM has ileostomy that is draining Continue supportive care for sepsis and renal failure On tube feed , rate increased. Prognosis is guarded. (3) Sepsis ICD Codes: A41.9 - Sepsis, unspecified organism Plan: On Levaquin. ID is managing. (4) Hypocalcemia ICD Codes: E83.51 - Hypocalcemia Plan: On liquid vitamin D for deficiency (Helena Malave) Plan patient was seen and examined. Agree with above assessment and plan. Remains oliguric. Dialyzed today. (Nish Zhu MD) Helena Malave Sep 28, 2017 13:52 Nish Zhu MD Sep 28, 2017 13:56
--- NOTE | 2017-09-28 17:38 | HHI.IDPN ---
Subjective Subjective Remarks is a 67 y/o CM with PMHx significant for CAD, s/p PCI and stents. He was repeatedly diagnosed with sessile polyp and underwent exploratory laparoscopy with robotic takedown of splenic flexure, colonoscopy with tattooing and robotic ascending colectomy on 09/07/17 by . Reportedly, the urine output was low and urology was consulted when despite IVF urine output did not increase. Patient was seen by and underwent cystoscopy and bilateral ureteral catheter insertion with 500 cc of urine obtained. During the hospital stay patient subsequently had abdominal distention and despite NG tube to suction continued to have worsening distention and discomfort. A KUB done earlier on the day of CT on 09/11/2017 was negative for free air but subsequent imaging showed free air so patient was emergently taken to the OR by . Patient was found to have a small bowel defect and large amounts of of bowel contents were visible in peritoneum per op note. Critical Care was consulted and patient is currently being treated for Septic Shock with multiple pressors, IVF boluses given yday. He had low urine output and Nephrology is on the case and CVVHD initiated. Patient had issues with clotting of access line so CVVHD has been interrupted off and on. Patient is currently intubated on a ventilator. Not much resp secretions. Ileostomy output ok. Platelets have been low but no obvious bleeding from any sites. Patient remains sedated on vent. Patient has been started on empiric antibiotics Zosyn IV, Vanco IV x 1 dose, Flagyl IV, Micafungin IV. Left IJ Vascath placed on 09/11/2017 ID consulted for evaluation and Mment of Septic Shock, Secondary peritonitis. Overnight events reviewed with RN No fevers No rash No diarrhea S/P trach Dw Antibiotics Current Medications Medications (Trade) Dose Ordered Sig/Emilee Route Start Time Stop Time Status Last Admin (Protonix Inj) 40 mg DAILY IVP 09/08/17 09:00 09/27/17 08:41 (Zofran Inj) 4 mg Q6H PRN IV PUSH 09/07/17 16:00 09/08/17 01:06 (Vasotec Inj) 1.25 mg Q4H PRN IV PUSH 09/07/17 16:00 Future Hold (Vasotec Inj) 2.5 mg Q6H PRN IV PUSH 09/07/17 16:00 Future Hold Potassium Chloride 100 ml @ 50 mls/hr UNSCH PRN IV 09/07/17 16:00 Potassium Chloride 100 ml @ 25 mls/hr UNSCH PRN IV-CENTRAL 09/07/17 16:00 (Heparin Inj) 5,000 units Q12H SQ 09/08/17 15:00 Future hold 09/28/17 04:24 (Narcan Inj) 0.4 mg UNSCH PRN IV PUSH 09/07/17 16:00 (Benadryl Inj) 25 mg Q6H PRN IV PUSH 09/07/17 16:00 (Norvasc) 5 mg DAILY PO 09/08/17 09:00 Future hold 09/27/17 08:41 (Toprol Xl) 25 mg DAILY PO 09/08/17 09:00 Future hold 09/10/17 09:50 (Dilaudid Pf Inj) 0.2 mg Q3H PRN IV 09/08/17 21:45 09/28/17 01:00 (Benadryl Inj) 25 mg HS PRN IV PUSH 09/10/17 20:15 Sodium Chloride 1,000 ml @ 0 mls/hr Q0M PRN OTHER 09/11/17 09:25 09/16/17 20:09 (Heparin Inj) 8,000 units UNSCH PRN IV FLUSH 09/11/17 09:30 09/17/17 15:47 Sodium Chloride 1,000 ml @ 200 mls/hr Q5H PRN IV 09/11/17 09:25 Sodium Chloride 1,000 ml @ 0 mls/hr Q0M PRN OTHER 09/11/17 09:25 (Mannitol Inj) 12.5 gm UNSCH PRN IV 09/11/17 09:30 Albumin Human 100 ml @ 60 mls/hr UNSCH PRN IV 09/11/17 09:30 09/24/17 14:45 (NS Flush) 5 ml UNSCH PRN IV FLUSH 09/11/17 09:30 09/19/17 19:57 (Heparin Inj) UNSCH PRN .XX 09/11/17 09:30 09/26/17 16:37 (Gentamicin Inj) 20 mg UNSCH PRN OTHER 09/11/17 09:30 09/26/17 16:38 (Zofran Inj) 4 mg UNSCH PRN IV PUSH 09/11/17 09:30 (Tylenol) 650 mg UNSCH PRN PO 09/11/17 09:30 09/27/17 10:58 (Benadryl) 25 mg UNSCH PRN PO 09/11/17 09:30 (Nitrostat Sl) 0.4 mg UNSCH PRN SL 09/11/17 09:30 (Catapres) 0.1 mg UNSCH PRN PO 09/11/17 09:30 (Gelfoam 12 Mm/7 Mm Top) 1 foam UNSCH PRN TOP 09/11/17 09:30 Amiodarone HCl 450 mg/Sodium Chloride 250 ml @ 33.33 mls/ hr Q7H31M PRN IV 09/11/17 12:00 09/18/17 12:19 Propofol 100 ml @ 2.895 mls/ hr TITRATE PRN IV 09/11/17 12:45 09/19/17 06:46 Sodium Chloride 1,000 ml @ 0 mls/hr UNSCH PRN OTHER 09/11/17 13:00 (KCl 40 Meq Premix Inj) *FOR DIALYSIS USE IN C... WITH DIALYSIS PRN .XX 09/11/17 13:00 (Brethine Inj) 1 mg UNSCH PRN SQ 09/11/17 16:45 Fentanyl Citrate 250 ml @ 5 mls/hr TITRATE PRN IV 09/12/17 11:00 09/19/17 06:07 (Tears Naturale Opth Soln) 1 drop Q8HR EACH EYE 09/14/17 14:00 09/28/17 05:26 (Albuterol Neb) 2.5 mg Q2HR NEB PRN NEB 09/14/17 09:00 09/23/17 10:34 (Synthroid) 50 mcg DAILY@0600 PO 09/15/17 06:00 09/28/17 05:25 (D50w (Vial) Inj) 50 ml UNSCH PRN IV PUSH 09/14/17 09:45 (Glucagon Inj) 1 mg UNSCH PRN OTHER 09/14/17 09:45 (NovoLOG SUPPLEMENTAL SCALE) 1 Q6HR SQ 09/14/17 12:00 09/21/17 00:41 (Vitamin D Liq) 2,000 units DAILY PO 09/14/17 14:30 09/26/17 09:59 (Trandate Inj) 20 mg Q2H PRN IV PUSH 09/15/17 14:00 09/25/17 06:10 (Apresoline Inj) 10 mg Q30M PRN IV PUSH 09/15/17 14:00 09/22/17 13:41 (Reglan Inj) 5 mg Q8HR IV PUSH 09/17/17 22:00 09/28/17 05:25 (Tylenol) 1,000 mg Q8H PRN PO 09/18/17 09:00 09/26/17 06:19 (Coreg) 3.125 mg Q12HR PO 09/18/17 10:00 09/27/17 19:48 Epinephrine HCl 2 mg/Dextrose 250 ml @ 22.5 mls/hr TITRATE PRN IV 09/20/17 19:45 Vasopressin 40 units/Dextrose 100 ml @ 6 mls/hr TITRATE PRN IV 09/20/17 19:45 09/21/17 02:44 Dobutamine HCl/ Dextrose 250 ml @ 11.985 mls/ hr TITRATE PRN IV 09/20/17 19:45 09/21/17 15:00 (Levaquin) 500 mg Q48H PO 09/26/17 21:00 09/26/17 21:23 (Phoslo) 1,334 mg TID PEG 09/28/17 13:00 Lines Line sites with no e.o infection Past Medical History reviewed Allergies: Coded Allergies: No Known Allergies (Unverified Allergy, Unknown, 09/07/17) Objective . Vital Signs Date Time Temp Pulse Resp B/P (MAP) Pulse Ox O2 Delivery O2 Flow Rate FiO2 09/28/17 08:41 100 T-piece 28 09/28/17 06:00 108 09/28/17 04:00 98.7 106 25 140/74 (96) 95 09/28/17 04:00 101 09/28/17 02:00 101 09/28/17 00:00 101 09/28/17 00:00 98.8 96 23 130/67 (88) 98 09/27/17 22:00 96 09/27/17 20:47 98 T-piece 28 09/27/17 20:00 99.1 104 26 107/55 (72) 100 09/27/17 20:00 101 09/27/17 18:00 106 09/28/17 09/28/17 09/29/17 15:00 23:00 07:00 Intake Total 591 ml Output Total 1000 ml 780 ml Balance -1000 ml -189 ml Tube Feeding 591 ml Output Urine Total 70 ml Stool Total 650 ml Drainage Total 60 ml Hemodialysis 1000 ml . Laboratory Tests Test 09/27/17 04:56 09/28/17 04:24 White Blood Count 4.9 TH/MM3 3.1 TH/MM3 Red Blood Count 2.98 MIL/MM3 3.01 MIL/MM3 Hemoglobin 9.0 GM/DL 9.0 GM/DL Hematocrit 26.3 % 26.6 % Mean Corpuscular Volume 88.3 FL 88.2 FL Mean Corpuscular Hemoglobin 30.0 PG 29.7 PG Mean Corpuscular Hemoglobin Concent 34.0 % 33.7 % Red Cell Distribution Width 14.5 % 14.9 % Platelet Count 103 TH/MM3 109 TH/MM3 Mean Platelet Volume 9.7 FL 10.0 FL Laboratory Tests Test 09/27/17 04:52 09/28/17 04:24 Blood Urea Nitrogen 55 MG/DL 92 MG/DL Creatinine 5.25 MG/DL 7.95 MG/DL Random Glucose 129 MG/DL 139 MG/DL Calcium Level 8.3 MG/DL 8.6 MG/DL Sodium Level 140 MEQ/L 138 MEQ/L Potassium Level 4.3 MEQ/L 4.6 MEQ/L Chloride Level 100 MEQ/L 99 MEQ/L Carbon Dioxide Level 28.7 MEQ/L 27.4 MEQ/L Anion Gap 11 MEQ/L 12 MEQ/L Estimat Glomerular Filtration Rate 11 ML/MIN 7 ML/MIN Imaging Last Impressions Chest X-Ray 09/21/17 0600 Signed Impressions: Service Date/Time: Thursday, September 21, 2017 03:33 - CONCLUSION: Slight interval worsening in aeration Michele Coleman MD Abdomen/Pelvis CT 09/18/17 0000 Signed Impressions: Service Date/Time: Monday, September 18, 2017 15:55 - CONCLUSION: 1. No evidence of intra-abdominal abscess. 2. Small bilateral pleural effusions with adjacent alveolar consolidations consistent with compressive atelectasis or pneumonia. Clinical correlation is recommended. 3. Cholelithiasis. 4. 8.5 cm right renal cyst. 5. Degenerative changes and scoliosis of the thoraco-lumbar spine. 6. 2 low-density lesions within the liver measuring 1.8 cm in the right dome and 1.2 cm in the inferior right lobe which are indeterminate on this unenhanced examination. 7. Cardiomegaly and coronary artery calcification noted. Edwin Marie MD Liver Ultrasound 09/15/17 0000 Signed Impressions: Service Date/Time: Friday, September 15, 2017 07:34 - CONCLUSION: The liver appears mildly enlarged and decreased in echogenicity concerning for edema. The gallbladder is distended with sludge. No discrete stones are visualized. There is mild wall thickening of the gallbladder present. The spleen is overall normal in size and grossly normal in echotexture. Small amount of free fluid seen adjacent to the spleen. Vida Levine MD Abdomen X-Ray 09/13/17 0000 Signed Impressions: Service Date/Time: September 10:52 - CONCLUSION: Gastric tube tip and side-port project over the stomach. Andrés Gardner MD Renal Ultrasound 09/10/17 0000 Signed Impressions: Service Date/Time: Sunday, September 10, 2017 15:17 - CONCLUSION: No evidence of mass or hydronephrosis. Andrés Gardner MD Physical Exam GENERAL: awake, focusing, NAD on the vent, comfortable on CPAP SKIN: Cool and dry. No rash or ecchymoses. Edematous HEAD: Atraumatic. Normocephalic. EYES: Pupils equal round and reactive. No scleral icterus. No injection or drainage. ENT: Trach site ok. NECK: Trachea midline. Supple, nontender, no meningeal signs. CARDIOVASCULAR: HS audible. RESPIRATORY: Clear to auscultation. Breath sounds equal bilaterally but decreased in the bases. GASTROINTESTINAL: Abdomen soft, Ostomy bag with dark green liquid stool. BRANDEN drain x 1, left drain with purulent bull fluid. Midline incision with larger open area, packed with wet to dry dressing in place. MUSCULOSKELETAL: Extremities without clubbing, cyanosis. Pedal and hand edema noted, improving : small amount of dark urine in urinary bag NEUROLOGICAL: Awake, responding, following commands. Moves all extremities Psych Cooperative IV line sites with no e.o infection. Assessment & Plan Remarks Possible new sepsis. Elevated WBC count and fever. Secondary peritonitis due to small bowel perforation s/p Enterotomy and washout , has an end ileostomy Abdominal wound infection E.cloacae. S/P robotic splenic flexure takedown on 09/07/17 S/P cystoscopy with bilateral ureteroscopies on 09/07/2017 Thrombocytopenia: sepsis, DIC - seems to have plateau Acute renal failure: prerenal, sepsis. Pulmonary infiltrate, BAL with nl resp angel Recs: Current source of infection to be treated is midline surgical incision with E.cloacae. Continue levaquin oral renal dose adjusted. D/W RN Follow clinically. Will follow prn. Plan on tentative 7 days for levaquin for now. covering for me and available prn over weekend Lu Orozco MD Sep 28, 2017 17:38
[2017-09-28] MEDS: LEVOFLOXACIN 500 MG TAB PO SCH (22:05)
[2017-09-29] VITALS (13 sets, daily range): BP systolic 101–133; BP diastolic 55–70; PULSE 100–122; RESP 18–24; TEMP 97.6–98.8; O2SAT 93–100
[2017-09-29] MEDS: HEPARIN SODIUM - SQ 10,000 UNITS/ML VIAL SQ SCH ×2 (02:56→15:03)
[2017-09-29] MEDS: ACETAMINOPHEN 325 MG TAB PO PRN (02:56)
[2017-09-29] MEDS: ARTIFICIAL TEARS OPTH SOLN 15 ML BTL EACH EYE SCH ×3 (06:00→21:18)
[2017-09-29] MEDS: LEVOTHYROXINE SODIUM 50 MCG TAB PO SCH (06:27)
[2017-09-29] MEDS: METOCLOPRAMIDE HCL 10 MG/2 ML VIAL IV PUSH SCH ×3 (06:27→21:18)
--- NOTE | 2017-09-29 08:19 | HHI.CCPN ---
Subjective Remarks/Hospital Course 67-year-old very pleasant gentleman initially admitted for same day surgery for polyp removal. Due to some complications in the OR he required a colonoscopy during the surgery and now he is postop day 4 status post robotic ascending colectomy. He also required bilateral ureteral catheter placement by urology. Postoperatively he was given Toradol, received 12 doses. He is now on IVF, urine output is very low and he has cola colored urine. He continues to be profoundly acidotic and the x-ray today shows pneumoperitoneum that is new compared to previous images. The patient's surgeon Dr. Mcclellan is at the bedside and she is taking him immediately to operating room for a revision. The patient during my exam is not in distress. 09/12: Remains very critical in septic shock. CVVH started yesterday. Remains on Levophed, dontrell-synephrine and and vasopressin plus stress dose steroids. s/p Small bowel enterotomy with leakage of small bowel contents, s/p diverting ileostomy. WBC up to 19.5, platelet count 64 today 09/13: Continues to be intubated remains critical but slight improvement in hemodynamics. Levophed is down to 12 mcg/m remains on vasopressin. Dontrell- Synephrine was restarted overnight currently at 60 mcg/m but will wean to DC. Platelet count further down now 45 most likely from sepsis and consumption. Check hit screen. CVVH filter clot transitioning to hemodialysis today. Appreciate ID consult. WBC count is up to 25.2 today Subjective 09/14: Afebrile. Currently only on vasopressin to maintain mean arterial pressure greater than equal to 65. Norepinephrine is been discontinued along with Dontrell-Synephrine. Platelets currently 31. LDH, haptoglobin and peripheral smear pending. No bleeding apparent. 09/15: May need to replace HD catheter, flow sluggish. Tapering vasopressors but platelets remain low. 09/16. Platelet count 56,[address] new hemodialysis catheter. Unfortunately there are no access it is available in the neck. Examination of the groins reveals that the areas are much too contaminated to allow for line placement. The only sites available are subclavian approach. I have discussed this with Dr. Breen and he agrees to proceed with subclavian placement. This should not be a situation requiring long-term hemodialysis. MAURICE panel negative. 09/17: Remains intubated sedated, new hemodialysis catheter placed today. Plan for hemodialysis today. WBC count 11.9 to 18.4 today, but patient remains on stress dose steroids. Start weaning hydrocortisone. Urine output remains minimal. Platelet count improving 66 today 09/18: Remains critical remains hemodynamically stable but increasing brownish thick output from the bilateral BRANDEN drains. Midline incision with some eschar formation Dr. Mcclellan made aware. CT of the abdomen pelvis stat to rule out abscess/fluid collections. CBC and CMP are pending today 09/19: Remains intubated off sedation patient able to follow commands but significant muscular weakness especially lower extremities. Off pressors. He remains oliguric to anuric. CT abdomen pelvis did not show any drainable fluid collections. CBC starting to trend down 16.6 to 13.8. Will discontinue stress dose steroids today 09/20: Wakes up easily on low dose propofol. Plan for HD with fluid removal today. Hemodynamically stable. Urine output 120 mL in 24 hours. Hb 7.6 yesterday, will repeat am. no transfusion at this time. Possible extubation today after hemodialysis 09/21: hypoxia improving. remains in shock on multiple vasopressors and inotropes. critically ill. 09/22: off vasopressors. clinically improving and awake, alert. still failing any weaning attempts. long discussion with and patient, and we all agree trach is the best option for him. will likely plan for Sunday. 09/23: doing well. awake. alert. denies complaints. ROS negative. 09/24: awake. plan for trach today. still failing weaning attempts. 09/25: Status post tracheostomy yesterday. Awake and alert. Awaiting CT abdomen pelvis. 09/26: Awake and alert. Tolerating CPAP trials. 09/27: Awake and alert. Tolerated T piece for a few hours yesterday. On CPAP overnight. Underwent dialysis yesterday. 09/28: On T piece since yesterday. Awake and alert. Resting comfortably. Tolerating tube feeds. 09/29: He has tolerated T piece ventilation for 48 hours now. He is alert responsive and interactive with his hands and head nod. Tube feeds well tolerated. Objective Vital Signs Date Time Temp Pulse Resp B/P (MAP) Pulse Ox O2 Delivery O2 Flow Rate FiO2 09/29/17 06:00 108 09/29/17 04:00 98.8 18 113/59 (77) 97 09/28/17 20:09 T-piece 5.00 28 Intake and Output 09/29/17 09/29/17 09/30/17 08:00 16:00 00:00 Intake Total 584 ml Output Total 1975 ml Balance -1391 ml Result Diagram: 09/28/17 0424 09/28/17 0424 Imaging Last Impressions Chest X-Ray 09/14/17 0600 Signed Impressions: Service Date/Time: Thursday, September 14, 2017 03:40 - CONCLUSION: No significant interval change. Persistent left lower lobe atelectasis versus consolidation and mild hazy bilateral lung opacity. Valeriy Gagnon MD Abdomen X-Ray 09/13/17 0000 Signed Impressions: Service Date/Time: September 10:52 - CONCLUSION: Gastric tube tip and side-port project over the stomach. Andrés Gardner MD Renal Ultrasound 09/10/17 0000 Signed Impressions: Service Date/Time: Sunday, September 10, 2017 15:17 - CONCLUSION: No evidence of mass or hydronephrosis. Andrés Gardner MD Objective Remarks GENERAL: 67-year-old male laying in bed, on T piece SKIN: Warm and dry. HEAD: Normocephalic. EYES: MARIO. EOMI. ENT: Tongue moist. NECK: Tracheostomy in place, site clean and dry.. Left subclavian hemodialysis catheter in place, CDI CARDIOVASCULAR: Regular rate and rhythm. No JVD. Normal S1, S2. RESPIRATORY: Breath sounds equal bilaterally. Bilateral mobile secretions, few. Good bilateral air movement. On T piece GASTROINTESTINAL: Abdominal binder in place. Ileostomy remains pink, BRANDEN drain in place. midline incision with wound VAC in place MUSCULOSKELETAL: With 1+ bilateral lower extremity edema, warm and well-perfused NEURO EXAM: RASS 0. following commands. Gestures with hands. Would like to try drinking some liquids. Line: Central Venous Catheter Side: Left Location: Internal, Jugular A/P Assessment and Plan Neuro: Toxic metabolic encephalopathy CIM Off all sedation. severe neuromuscular weakness persists PT/OT daily Resp Acute hypoxemic respiratory failure- recurrent, persistent. HCAP Ventilator bundle. Albuterol/ipratropium aerosols every 6 hours with albuterol aerosols every 2. hours as needed dyspnea Status post tracheostomy. Daily CPAP trials. Attempt T-piece as tolerated. Continue fluid removal with hemodialysis No longer ventilator dependent. Breathes comfortably on T piece through tracheostomy. CVS: Severe septic shock-persistent Lactic acidosis Fluid overload A fib with RVR, now NSR Coronary disease status post stent times 07/2015 History of hypertension History of dyslipidemia -s/p Aggressively fluid resuscitated, now getting fluid removed by hemodialysis -Off pressors -Holding aspirin 81 mg by mouth daily with low platelet, Resume once consistently >90 -DCd Amiodarone drip at 0.5 mcg/min, started Coreg 3.125 mg bid on 09/18/17. Cannot anticoagulate due to recent surgery and thrombocytopenia. Subcu heparin start 09/19 -2D echocardiogram 09/13 - left ventricular systolic function normal with an estimated ejection fraction in the range of 50-55%. No definite regional wall motion abnormalities. There is mild tricuspid regurgitation. PASP 44 mmHg. -On hydrocortisone sodium 50 q8 -DCd 09/19 Renal//FEN Acute kidney failure Hyponatremia -Most likely secondary to ATN/septic shock -Nephrology Dr. Zhu following, CVVH started 09/11/17, transitioned to IHD 09/13 ->10 L removed with hemodialysis 09/17, 09/18,09/19. HD again today. -Left subclavian Vas-Cath paced 09/16/17 GI/ID Small bowel enterotomy with leakage of small bowel contents, status post ex lap s/p diverting ileostomy POD 7 Peritonitis with septic shock -Status post ascending colectomy 09/07 -Status post ex lap irrigation and diverting ileostomy for small bowel perforation pod 12 -Previous CT abdomen pelvis to rule out abscess formation-negative for fluid collection, follow-up CT abdomen pelvis on 09/25 -Continue abx per ID -Post op Management per Dr. Mcclellan general surgery -Blood cx 09/13 Enterobacter pansensitive, fluid culture 09/17 Enterobacter pansensitive HEME: Leukocytosis Normocytic anemia Thrombocytopenia-improving -Monitor CBC, coags -Thrombocytopenia secondary to sepsis, DIC -f/u LDH, haptoglobin and peripheral smear -Hematology following -Resumed sq Heparin, 09/20, HIT screen negative panel ENDO: Hyperglycemia History of gout Hypothyroidism Sliding scale insulin with NovoLog to maintain euglycemia/low regimen every 6 hours Holding allopurinol 100 mg by mouth daily for gout/home medication Levothyroxine 50 mcg by tube daily. IV levothyroxine limited to myxedema coma only at [place] due to nationwide shortage DVT GI prophylaxis -Luis M's and SCDs -Subcu heparin-resumed 09/20 -Famotidine Overall impression: This gentleman has made considerable progress over the past week. He is breathing comfortably on his own through his tracheostomy. Providing adequate nutrition is 1 of our most important endeavors at this point. Dawson Ball MD Sep 29, 2017 08:19
[2017-09-29] MEDS: METOPROLOL SUCCINATE 25 MG EXTENDED RELEASE TAB PO SCH (08:31)
[2017-09-29] MEDS: CHOLECALCIFEROL (VIT D3) LIQ 400 UNITS/ML 50 ML BOTTLE PO SCH (09:00)
[2017-09-29] MEDS: amLODIPine BESYLATE 5 MG TAB PO SCH (09:07)
[2017-09-29] MEDS: CALCIUM ACETATE 667 MG CAP PEG SCH ×3 (09:07→18:29)
[2017-09-29] MEDS: CARVEDILOL 3.125 MG TAB PO SCH ×2 (09:08→21:17)
[2017-09-29] MEDS: PANTOPRAZOLE SODIUM 40 MG VIAL IVP SCH (09:08)
[2017-09-29] MEDS: HYDROmorphone HCL PF 2 MG/ML VIAL IV PRN ×2 (09:08→12:50)
--- NOTE | 2017-09-29 12:38 | HHI.PR ---
Subjective Remarks POD#22 s/p robotic ascending colectomy/POD#18 exploratory lap with diverting ileostomy Intubated, alert, oriented, reports back pain Objective Vital Signs Date Time Temp Pulse Resp B/P (MAP) Pulse Ox O2 Delivery O2 Flow Rate FiO2 09/29/17 10:00 120 09/29/17 09:52 20 09/29/17 08:00 117 09/29/17 08:00 98.5 116 24 133/70 (91) 100 09/29/17 08:00 100 T-Piece 28 09/29/17 06:00 108 09/29/17 04:00 98.8 104 18 113/59 (77) 97 09/29/17 04:00 104 09/29/17 02:00 110 09/29/17 00:00 98.8 100 18 113/59 (77) 95 09/29/17 00:00 108 09/28/17 22:00 108 09/28/17 20:09 95 T-piece 5.00 28 09/28/17 20:00 97.9 106 27 107/60 (76) 98 09/28/17 20:00 106 09/28/17 18:26 109 09/28/17 14:00 108 09/28/17 14:00 112 I/O 09/28/17 09/28/17 09/28/17 09/29/17 09/29/17 09/29/17 07:00 15:00 23:00 07:00 15:00 23:00 Intake Total 591 ml 584 ml Output Total 965 ml 1000 ml 780 ml 800 ml 1975.0 ml Balance -965 ml -1000 ml -189 ml -800 ml -1391.0 ml Tube Feeding 591 ml 584 ml Output Urine Total 30 ml 70 ml 20 ml Stool Total 850 ml 650 ml 800 ml 1800 ml Tube Feeding Residual Discard 0 ml Drainage Total 85 ml 60 ml 155 ml Hemodialysis 1000 ml Result Diagram: 09/28/17 0424 09/28/17423 Objective Remarks Abdomen soft, nondistended ileostomy pink, thicker output, fairly high volume - nearly full mucocutaneous disjunction midline wound vac in place, edges clean LUQ wound opened, dressing changed, drainage moderate RLQ port site - opened, surrounding cellulitis, drainage similar BRANDEN - continues brownish aguilar Assessment and Plan Assessment and Plan transverse colon polyp/sb enterotomy NEURO - responsive CV - stable PULM - trach, tolerating T-piece GI - Increase TF's, ? swallow study FEN - HD MWF, watch ileo output - urine darker? ID - wound vac,LUQ/RLQ wounds wet-dry Heme - stable Continue aggressive PT Improving Change to [employer] diluadid Possible swallow study Ivory Mcclellan MD Sep 29, 2017 12:38
[2017-09-29] MEDS ORDERED: NALOXONE HCL 0.4 MG/ML AMP IV PUSH PRN (12:45)
--- NOTE | 2017-09-29 13:03 | HHI.NPPN ---
Subjective General Problems: Anemia, Edema Renal Failure: Acute Additional Remarks Complains of back pain. Denies any SOB no edema noted. (Gill Osborne) Review of Systems Respiratory Respiratory Remarks Denies SOB (Gill Osborne) Gastrointestinal GI Remarks Denies Abdominal pain (Gill Osborne) Musculoskeletal MS Remarks back pain (Gill Osborne) Objective Data Data 09/29/17 09/30/17 19:00 07:00 Intake Total 584 ml Output Total 1975.0 ml Balance -1391.0 ml Tube Feeding 584 ml Output Urine Total 20 ml Stool Total 1800 ml Tube Feeding Residual Discard 0 ml Drainage Total 155 ml Vital Signs Date Time Temp Pulse Resp B/P (MAP) Pulse Ox O2 Delivery O2 Flow Rate FiO2 09/29/17 10:00 120 09/29/17 09:52 20 09/29/17 08:00 117 09/29/17 08:00 98.5 116 24 133/70 (91) 100 09/29/17 08:00 100 T-Piece 28 09/29/17 06:00 108 09/29/17 04:00 98.8 104 18 113/59 (77) 97 09/29/17 04:00 104 09/29/17 02:00 110 09/29/17 00:00 98.8 100 18 113/59 (77) 95 09/29/17 00:00 108 09/28/17 22:00 108 09/28/17 20:09 95 T-piece 5.00 28 09/28/17 20:00 97.9 106 27 107/60 (76) 98 09/28/17 20:00 106 09/28/17 18:26 109 09/28/17 14:00 108 09/28/17 14:00 112 (Gill Osborne) -: 09/28/17 0424 09/28/17 0424 Imaging Last Impressions Abdomen/Pelvis CT 09/25/17 0600 Signed Impressions: Service Date/Time: Monday, September 25, 2017 09:36 - CONCLUSION: 1. Minimal ascites without abscess. 2. Surgical drain left abdomen. 3. Small pleural effusions and left basilar consolidation. Right lung base has improved. 4. Stable hepatic low densities and right renal cyst. 5. Cholelithiasis. Lazarus Penaloza MD Chest X-Ray 09/24/17 0000 Signed Impressions: Service Date/Time: Sunday, September 24, 2017 14:34 - CONCLUSION: Trach tube in good position without pneumothorax with interval improvement in appearance the lungs. Ashu Aranda MD FACR Liver Ultrasound 09/15/17 0000 Signed Impressions: Service Date/Time: Friday, September 15, 2017 07:34 - CONCLUSION: The liver appears mildly enlarged and decreased in echogenicity concerning for edema. The gallbladder is distended with sludge. No discrete stones are visualized. There is mild wall thickening of the gallbladder present. The spleen is overall normal in size and grossly normal in echotexture. Small amount of free fluid seen adjacent to the spleen. Vida Levine MD Abdomen X-Ray 09/13/17 0000 Signed Impressions: Service Date/Time: September 10:52 - CONCLUSION: Gastric tube tip and side-port project over the stomach. Andrés Gardner MD Renal Ultrasound 09/10/17 0000 Signed Impressions: Service Date/Time: Sunday, September 10, 2017 15:17 - CONCLUSION: No evidence of mass or hydronephrosis. Andrés Gardner MD Tubes & Lines: Perma-Cath, Canela Tubes & Lines Comment TLC right IJ VC left IJ A line ileostomy RLQ BRANDEN drains x 2 abd (Gill Osborne. INSTRUCTION DEAN) Physical Exam General Appearance: Well Developed, Comfortable (Gill Osborne. INSTRUCTION DEAN) Throat Throat Exam: Oral Mucosa Darwin & Moist (Gill Osborne INSTRUCTION DEAN) Neck Neck Exam: Neck Supple (Gill Osborne. INSTRUCTION DEAN) Pulmonary Resp Exam: Breath Sounds Equal, No Distress, Decreased Bases (Gill Osborne. INSTRUCTION DEAN) Cardiology CV Exam: Regular, Normal Sinus Rhythm (Gill Osborne. INSTRUCTION DEAN) Gastrointestinal/Abdomen GI Exam: Soft, Positive Bowel Movement, Distended, Bowel Sounds Hypoactive (Gill Osborne. INSTRUCTION DEAN) Musculoskeletal MS Exam: Joints Intact, Good Strength, Unable to Ambulate (Gill Osborne. INSTRUCTION DEAN) Integumentary Skin Exam: Warm, Dry, Intact (Gill Osborne) Extremeties Extremities Exam: Pedal Pulses Palpable, Moderate Edema (Gill Osborne) Neurologic Neuro Exam: Alert, Awake (Gill Osborne) Psychiatric Psych Exam: Appropriate Responses (Gill Osborne) VTE Prophylaxis Device: SCDs (Gill Osborne) Assessment/Plan Discussed Condition With: Patient Assessment Summary: JOSEF/Acute Renal Failure, Acute Tubular Necrosis Electrolyte Assessment: Hypocalcemia Problem List: (1) JOSEF (acute kidney injury) ICD Codes: N17.9 - Acute kidney failure, unspecified Plan: His renal function is normal at baseline Oliguric renal failure, ATN, secondary to sepsis On CRRT from 09/11-09/12. HD started on 09/13. On MWF Hemodialysis yesterday for UF of 1 liter Oligoanuric, monitor output, await renal recovery. On calcium acetate TID with tube feeding, monitor phosphorus level. Avoid nephrotoxic agents. (2) S/P partial colectomy ICD Codes: Z90.49 - Acquired absence of other specified parts of digestive tract Plan: He developed small bowel perforation after robotic surgery, s/p emergent ex lap with I&D 09/11 Management per surgery and CCM has ileostomy that is draining Continue supportive care for sepsis and renal failure On tube feed , rate increased. Prognosis is guarded. (3) Sepsis ICD Codes: A41.9 - Sepsis, unspecified organism Plan: On Levaquin. ID is managing. (4) Hypocalcemia ICD Codes: E83.51 - Hypocalcemia Plan: On liquid vitamin D for deficiency (Gill Osborne) Problem List: (1) JOSEF (acute kidney injury) ICD Codes: N17.9 - Acute kidney failure, unspecified Plan: His renal function is normal at baseline Oliguric renal failure, ATN, secondary to sepsis On CRRT from 09/11-09/12. HD started on 09/13. On MWF Hemodialysis yesterday for UF of 1 liter Oligoanuric, monitor output, await renal recovery. On calcium acetate TID with tube feeding, monitor phosphorus level. Avoid nephrotoxic agents. Patient seen and examined, agree with above. Continue HD MWF. Watch for renal recovery. (2) S/P partial colectomy ICD Codes: Z90.49 - Acquired absence of other specified parts of digestive tract Plan: He developed small bowel perforation after robotic surgery, s/p emergent ex lap with I&D 4/3 Management per surgery and CCM has ileostomy that is draining Continue supportive care for sepsis and renal failure On tube feed , rate increased. Prognosis is guarded. (3) Sepsis ICD Codes: A41.9 - Sepsis, unspecified organism Plan: On Levaquin. ID is managing. (4) Hypocalcemia ICD Codes: E83.51 - Hypocalcemia Plan: On liquid vitamin D for deficiency (Judy Murray MD) Gill OsborneP Sep 29, 2017 13:03 Judy Murray MD Sep 30, 2017 14:33
[2017-09-29] MEDS: PCA - TOTAL MG DILAUDID DELIVERED PER SHIFT OTHER SCH ×2 (14:00→22:00)
[2017-09-29] MEDS: HYDROmorphone HCL PCA 6 MG/30 ML IV SCH (14:01)
[2017-09-29] MEDS: diphenhydrAMINE HCL 50 MG/ML VIAL IM PRN (21:17)
[2017-09-30] VITALS (14 sets, daily range): BP systolic 102–132; BP diastolic 59–72; PULSE 104–122; RESP 21–26; TEMP 97.6–98.7; O2SAT 94–97
[2017-09-30] MEDS: HEPARIN SODIUM - SQ 10,000 UNITS/ML VIAL SQ SCH ×2 (03:59→14:14)
[2017-09-30] MEDS: PCA - TOTAL MG DILAUDID DELIVERED PER SHIFT OTHER SCH ×3 (06:00→21:15)
[2017-09-30] MEDS: ARTIFICIAL TEARS OPTH SOLN 15 ML BTL EACH EYE SCH ×3 (06:11→21:14)
[2017-09-30] MEDS: METOCLOPRAMIDE HCL 10 MG/2 ML VIAL IV PUSH SCH ×3 (06:13→21:14)
[2017-09-30] MEDS: LEVOTHYROXINE SODIUM 50 MCG TAB PO SCH (06:13)
[2017-09-30] MEDS: CHOLECALCIFEROL (VIT D3) LIQ 400 UNITS/ML 50 ML BOTTLE PO SCH (09:00)
[2017-09-30] MEDS: METOPROLOL SUCCINATE 25 MG EXTENDED RELEASE TAB PO SCH (09:00)
[2017-09-30] MEDS: CALCIUM ACETATE 667 MG CAP PEG SCH ×3 (09:11→18:28)
[2017-09-30] MEDS: amLODIPine BESYLATE 5 MG TAB PO SCH (09:11)
[2017-09-30] MEDS: PANTOPRAZOLE SODIUM 40 MG VIAL IVP SCH (09:11)
[2017-09-30] MEDS: CARVEDILOL 3.125 MG TAB PO SCH ×2 (09:11→20:32)
--- NOTE | 2017-09-30 10:42 | HHI.CCPN ---
Subjective Remarks/Hospital Course 67-year-old very pleasant gentleman initially admitted for same day surgery for polyp removal. Due to some complications in the OR he required a colonoscopy during the surgery and now he is postop day 4 status post robotic ascending colectomy. He also required bilateral ureteral catheter placement by urology. Postoperatively he was given Toradol, received 12 doses. He is now on IVF, urine output is very low and he has cola colored urine. He continues to be profoundly acidotic and the x-ray today shows pneumoperitoneum that is new compared to previous images. The patient's surgeon Dr. Mcclellan is at the bedside and she is taking him immediately to operating room for a revision. The patient during my exam is not in distress. 09/12: Remains very critical in septic shock. CVVH started yesterday. Remains on Levophed, dontrell-synephrine and and vasopressin plus stress dose steroids. s/p Small bowel enterotomy with leakage of small bowel contents, s/p diverting ileostomy. WBC up to 19.5, platelet count 64 today 09/13: Continues to be intubated remains critical but slight improvement in hemodynamics. Levophed is down to 12 mcg/m remains on vasopressin. Dontrell- Synephrine was restarted overnight currently at 60 mcg/m but will wean to DC. Platelet count further down now 45 most likely from sepsis and consumption. Check hit screen. CVVH filter clot transitioning to hemodialysis today. Appreciate ID consult. WBC count is up to 25.2 today Subjective 09/14: Afebrile. Currently only on vasopressin to maintain mean arterial pressure greater than equal to 65. Norepinephrine is been discontinued along with Dontrell-Synephrine. Platelets currently 31. LDH, haptoglobin and peripheral smear pending. No bleeding apparent. 09/15: May need to replace HD catheter, flow sluggish. Tapering vasopressors but platelets remain low. 09/16. Platelet count 56,[address] new hemodialysis catheter. Unfortunately there are no access it is available in the neck. Examination of the groins reveals that the areas are much too contaminated to allow for line placement. The only sites available are subclavian approach. I have discussed this with Dr. Breen and he agrees to proceed with subclavian placement. This should not be a situation requiring long-term hemodialysis. MAURICE panel negative. 09/17: Remains intubated sedated, new hemodialysis catheter placed today. Plan for hemodialysis today. WBC count 11.9 to 18.4 today, but patient remains on stress dose steroids. Start weaning hydrocortisone. Urine output remains minimal. Platelet count improving 66 today 09/18: Remains critical remains hemodynamically stable but increasing brownish thick output from the bilateral BRANDEN drains. Midline incision with some eschar formation Dr. Mcclellan made aware. CT of the abdomen pelvis stat to rule out abscess/fluid collections. CBC and CMP are pending today 09/19: Remains intubated off sedation patient able to follow commands but significant muscular weakness especially lower extremities. Off pressors. He remains oliguric to anuric. CT abdomen pelvis did not show any drainable fluid collections. CBC starting to trend down 16.6 to 13.8. Will discontinue stress dose steroids today 09/20: Wakes up easily on low dose propofol. Plan for HD with fluid removal today. Hemodynamically stable. Urine output 120 mL in 24 hours. Hb 7.6 yesterday, will repeat am. no transfusion at this time. Possible extubation today after hemodialysis 09/21: hypoxia improving. remains in shock on multiple vasopressors and inotropes. critically ill. 09/22: off vasopressors. clinically improving and awake, alert. still failing any weaning attempts. long discussion with and patient, and we all agree trach is the best option for him. will likely plan for Sunday. 09/23: doing well. awake. alert. denies complaints. ROS negative. 09/24: awake. plan for trach today. still failing weaning attempts. 09/25: Status post tracheostomy yesterday. Awake and alert. Awaiting CT abdomen pelvis. 09/26: Awake and alert. Tolerating CPAP trials. 09/27: Awake and alert. Tolerated T piece for a few hours yesterday. On CPAP overnight. Underwent dialysis yesterday. 09/28: On T piece since yesterday. Awake and alert. Resting comfortably. Tolerating tube feeds. 09/29: He has tolerated T piece ventilation for 48 hours now. He is alert responsive and interactive with his hands and head nod. Tube feeds well tolerated. 09/30: He remains afebrile and his lungs are clearing up nicely. Secretions are markedly decreased. He has been off mechanical ventilation for 3 days now. Objective Vital Signs Date Time Temp Pulse Resp B/P (MAP) Pulse Ox O2 Delivery O2 Flow Rate FiO2 09/30/17 10:10 97 21 09/30/17 08:00 97.9 106 21 132/60 (84) 09/30/17 07:00 Room Air 09/30/17 00:27 5.00 Intake and Output 09/30/17 09/30/17 10/01/17 08:00 16:00 00:00 Intake Total 612 ml Output Total 630 ml Balance -18 ml Result Diagram: 09/28/17 0424 09/28/17 0424 Imaging Last Impressions Chest X-Ray 09/14/17 0600 Signed Impressions: Service Date/Time: Thursday, September 14, 2017 03:40 - CONCLUSION: No significant interval change. Persistent left lower lobe atelectasis versus consolidation and mild hazy bilateral lung opacity. Valeriy Gagnon MD Abdomen X-Ray 09/13/17 0000 Signed Impressions: Service Date/Time: September 10:52 - CONCLUSION: Gastric tube tip and side-port project over the stomach. Andrés Gardner MD Renal Ultrasound 09/10/17 0000 Signed Impressions: Service Date/Time: Sunday, September 10, 2017 15:17 - CONCLUSION: No evidence of mass or hydronephrosis. Andrés Gardner MD Objective Remarks GENERAL: 67-year-old male laying in bed, on T piece SKIN: Warm and dry. HEAD: Normocephalic. EYES: MARIO. EOMI. ENT: Tongue moist. NECK: Tracheostomy in place, site clean and dry. CARDIOVASCULAR: Regular rate and rhythm. No JVD. Normal S1, S2. RESPIRATORY: Breath sounds equal bilaterally. Bilateral mobile secretions, much decreased. Good bilateral air movement. On T piece X 3 days. GASTROINTESTINAL: Abdominal binder in place. Ileostomy remains pink, BRANDEN drain in place. midline incision with wound VAC in place MUSCULOSKELETAL: With 1+ bilateral lower extremity edema, warm and well-perfused NEURO EXAM: RASS 1. Following commands. Gestures with hands. Would like to try drinking some liquids. Line: Central Venous Catheter Side: Left Location: Internal, Jugular A/P Assessment and Plan Neuro: Toxic metabolic encephalopathy CIM Off all sedation. severe neuromuscular weakness persists PT/OT daily Resp Acute hypoxemic respiratory failure- recurrent, persistent. HCAP Ventilator bundle. Albuterol/ipratropium aerosols every 6 hours with albuterol aerosols every 2. hours as needed dyspnea Status post tracheostomy. Daily CPAP trials. Attempt T-piece as tolerated. Continue fluid removal with hemodialysis No longer ventilator dependent. Breathes comfortably on T piece through tracheostomy. CVS: Severe septic shock-persistent Lactic acidosis Fluid overload A fib with RVR, now NSR Coronary disease status post stent times 07/2015 History of hypertension History of dyslipidemia -s/p Aggressively fluid resuscitated, now getting fluid removed by hemodialysis -Off pressors -Holding aspirin 81 mg by mouth daily with low platelet, Resume once consistently >90 -DCd Amiodarone drip at 0.5 mcg/min, started Coreg 3.125 mg bid on 09/18/17. Cannot anticoagulate due to recent surgery and thrombocytopenia. Subcu heparin start 09/19 -2D echocardiogram 09/13 - left ventricular systolic function normal with an estimated ejection fraction in the range of 50-55%. No definite regional wall motion abnormalities. There is mild tricuspid regurgitation. PASP 44 mmHg. -On hydrocortisone sodium 50 q8 -DCd 09/19 Renal//FEN Acute kidney failure Hyponatremia -Most likely secondary to ATN/septic shock -Nephrology Dr. Zhu following, CVVH started 09/11/17, transitioned to IHD 09/13 ->10 L removed with hemodialysis 09/17, 09/18,09/19. HD again today. -Left subclavian Vas-Cath paced 09/16/17 GI/ID Small bowel enterotomy with leakage of small bowel contents, status post ex lap s/p diverting ileostomy POD 7 Peritonitis with septic shock -Status post ascending colectomy 09/07 -Status post ex lap irrigation and diverting ileostomy for small bowel perforation pod 12 -Previous CT abdomen pelvis to rule out abscess formation-negative for fluid collection, follow-up CT abdomen pelvis on 09/25 -Continue abx per ID -Post op Management per Dr. Mcclellan general surgery -Blood cx 09/13 Enterobacter pansensitive, fluid culture 09/17 Enterobacter pansensitive HEME: Leukocytosis Normocytic anemia Thrombocytopenia-improving -Monitor CBC, coags -Thrombocytopenia secondary to sepsis, DIC -f/u LDH, haptoglobin and peripheral smear -Hematology following -Resumed sq Heparin, 09/20, HIT screen negative panel ENDO: Hyperglycemia History of gout Hypothyroidism Sliding scale insulin with NovoLog to maintain euglycemia/low regimen every 6 hours Holding allopurinol 100 mg by mouth daily for gout/home medication Levothyroxine 50 mcg by tube daily. IV levothyroxine limited to myxedema coma only at [place] due to nationwide shortage DVT GI prophylaxis -Luis M's and SCDs -Subcu heparin-resumed 09/20 -Famotidine Overall impression: This gentleman has made considerable progress over the past week. He is breathing comfortably on his own through his tracheostomy. Providing adequate nutrition is one of our most important endeavors at this point. We are getting him up to chair but his back is very tender. We will continue to follow. Dawson Ball MD Sep 30, 2017 10:42
[2017-09-30] MEDS ORDERED: LIDOCAINE HCL 2% PF 10 ML VIAL INFIL ONE (12:00)
[2017-09-30] MEDS ORDERED: MIDAZOLAM HCL 5 MG/ML VIAL (1 ML) IV PUSH SCH (12:00)
--- NOTE | 2017-09-30 12:07 | HHI.NPPN ---
Subjective General Problems: Anemia, Edema Renal Failure: Acute Additional Remarks Patient in good spirits. Passed swallow exam and has been started on mechanical soft diet. No shortness of breath or edema. (Gill Osborne) Review of Systems Respiratory Respiratory Remarks Denies SOB (Gill Osborne) Gastrointestinal GI Remarks Denies Abdominal pain (Gill Osborne) Musculoskeletal MS Remarks back pain (Gill Osborne) Objective Data Data Vital Signs Date Time Temp Pulse Resp B/P (MAP) Pulse Ox O2 Delivery O2 Flow Rate FiO2 09/30/17 10:10 97 21 09/30/17 08:00 97.9 106 21 132/60 (84) 96 09/30/17 08:00 107 09/30/17 07:00 94 Room Air 09/30/17 06:00 110 09/30/17 06:00 25 09/30/17 05:31 21 09/30/17 04:00 105 09/30/17 04:00 97.8 104 22 117/72 (87) 96 09/30/17 02:00 106 09/30/17 00:27 95 T-piece 5.00 21 09/30/17 00:00 106 09/30/17 00:00 98.0 106 23 112/59 (76) 97 09/29/17 22:00 103 09/29/17 22:00 20 09/29/17 20:11 94 09/29/17 20:00 110 09/29/17 20:00 97.6 106 23 112/55 (74) 94 09/29/17 19:00 95 Room Air 21 09/29/17 18:00 108 09/29/17 16:00 114 09/29/17 16:00 97.8 114 24 101/61 (74) 93 09/29/17 14:37 23 09/29/17 14:01 26 09/29/17 14:00 122 (Gill Osborne) -: 09/28/17 0424 09/28/17 0424 Tubes & Lines: Perma-Cath, Canela Tubes & Lines Comment TLC right IJ VC left IJ A line ileostomy RLQ BRANDEN drains x 2 abd (Gill Osborne) Physical Exam General Appearance: Well Developed, Comfortable (Gill OsborneP) Throat Throat Exam: Oral Mucosa Brainard & Moist (Gill OsborneP) Neck Neck Exam: Neck Supple (Gill OsborneP) Pulmonary Resp Exam: Breath Sounds Equal, No Distress, Decreased Bases (Gill OsborneP) Cardiology CV Exam: Regular, Normal Sinus Rhythm (Gill OsborneP) Gastrointestinal/Abdomen GI Exam: Soft, Positive Bowel Movement, Distended, Bowel Sounds Hypoactive (Gill OsborneP) Musculoskeletal MS Exam: Joints Intact, Good Strength, Unable to Ambulate (Gill OsborneP) Integumentary Skin Exam: Warm, Dry, Intact (Gill Osborne) Extremeties Extremities Exam: Pedal Pulses Palpable, Moderate Edema (Gill OsborneP) Neurologic Neuro Exam: Alert, Awake (Gill Osborne) Psychiatric Psych Exam: Appropriate Responses (Gill Osborne) VTE Prophylaxis Device: SCDs (Gill Osborne) Assessment/Plan Discussed Condition With: Patient Assessment Summary: JOSEF/Acute Renal Failure, Acute Tubular Necrosis Electrolyte Assessment: Hypocalcemia Problem List: (1) JOSEF (acute kidney injury) ICD Codes: N17.9 - Acute kidney failure, unspecified Plan: His renal function is normal at baseline Oliguric renal failure, ATN, secondary to sepsis On CRRT from 09/11-09/12. HD started on 09/13. On MWF Hemodialysis last on Sunday Oligoanuric, monitor output, await renal recovery. On calcium acetate TID with tube feeding, monitor phosphorus level. Avoid nephrotoxic agents. Labs are pending for today. (2) S/P partial colectomy ICD Codes: Z90.49 - Acquired absence of other specified parts of digestive tract Plan: He developed small bowel perforation after robotic surgery, s/p emergent ex lap with I&D /3 Management per surgery and CCM has ileostomy that is draining Continue supportive care for sepsis and renal failure On tube feed , rate increased. Prognosis is guarded. (3) Sepsis ICD Codes: A41.9 - Sepsis, unspecified organism Plan: On Levaquin. ID is managing. (4) Hypocalcemia ICD Codes: E83.51 - Hypocalcemia Plan: On liquid vitamin D for deficiency (Gill Osborne) Problem List: (1) JOSEF (acute kidney injury) ICD Codes: N17.9 - Acute kidney failure, unspecified Plan: His renal function is normal at baseline Oliguric renal failure, ATN, secondary to sepsis On CRRT from 09/11-09/12. HD started on 09/13. On MWF Hemodialysis last on Sunday Oligoanuric, monitor output, await renal recovery. On calcium acetate TID with tube feeding, monitor phosphorus level. Avoid nephrotoxic agents. Labs are pending for today. Patient seen and examined, agree with above. Creatinine stable, HD will be in AM. (2) S/P partial colectomy ICD Codes: Z90.49 - Acquired absence of other specified parts of digestive tract Plan: He developed small bowel perforation after robotic surgery, s/p emergent ex lap with I&D 09/11 Management per surgery and CCM has ileostomy that is draining Continue supportive care for sepsis and renal failure On tube feed , rate increased. Prognosis is guarded. (3) Sepsis ICD Codes: A41.9 - Sepsis, unspecified organism Plan: On Levaquin. ID is managing. (4) Hypocalcemia ICD Codes: E83.51 - Hypocalcemia Plan: On liquid vitamin D for deficiency (Judy Murray MD) Gill Osborne Sep 30, 2017 12:06 Judy Murray MD Sep 30, 2017 14:59
[2017-09-30 12:16] LABS: ALBUMIN 2.3 GM/DL (3.4-5.0); BICARBONATE 23.9 MEQ/L (21.0-32.0); CALCIUM 8.9 MG/DL (8.5-10.1); CREATININE 8.59 MG/DL (0.60-1.30); PHOSPHORUS 7.9 MG/DL (2.5-4.9)
--- NOTE | 2017-09-30 14:03 | HHI.PR ---
Subjective Remarks POD#23 s/p robotic ascending colectomy/POD#19 exploratory lap with diverting ileostomy Intubated, alert, oriented Objective Vital Signs Date Time Temp Pulse Resp B/P (MAP) Pulse Ox O2 Delivery O2 Flow Rate FiO2 09/30/17 12:00 97.6 108 24 102/59 (73) 95 09/30/17 12:00 108 09/30/17 10:10 97 21 09/30/17 10:00 116 09/30/17 08:00 97.9 106 21 132/60 (84) 96 09/30/17 08:00 107 09/30/17 07:00 94 Room Air 09/30/17 06:00 110 09/30/17 06:00 25 09/30/17 05:31 21 09/30/17 04:00 105 09/30/17 04:00 97.8 104 22 117/72 (87) 96 09/30/17 02:00 106 09/30/17 00:27 95 T-piece 5.00 21 09/30/17 00:00 106 09/30/17 00:00 98.0 106 23 112/59 (76) 97 09/29/17 22:00 103 09/29/17 22:00 20 09/29/17 20:11 94 09/29/17 20:00 110 09/29/17 20:00 97.6 106 23 112/55 (74) 94 09/29/17 19:00 95 Room Air 21 09/29/17 18:00 108 09/29/17 16:00 114 09/29/17 16:00 97.8 114 24 101/61 (74) 93 09/29/17 14:37 23 09/29/17 14:01 26 I/O 09/29/17 09/29/17 09/29/17 09/30/17 09/30/17 09/30/17 07:00 15:00 23:00 07:00 15:00 23:00 Intake Total 584 ml 510 ml 612 ml Output Total 800 ml 1975.0 ml 585 ml 630 ml Balance -800 ml -1391.0 ml -75 ml -18 ml Tube Feeding 584 ml 420 ml 592 ml Tube Irrigant 90 ml 20 ml Output Urine Total 20 ml 50 ml 50 ml Stool Total 800 ml 1800 ml 525 ml 550 ml Tube Feeding Residual Discard 0 ml Drainage Total 155 ml 10 ml 30 ml Result Diagram: 09/28/17 0424 09/30/17 0930 Objective Remarks Abdomen soft, nondistended ileostomy pink, thicker output, fairly high volume - nearly full mucocutaneous disjunction debrided necrotic tissue, resutured cephalad edge midline wound vac in place, edges clean LUQ wound, 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
[2017-09-30] MEDS: HYDROmorphone HCL PCA 6 MG/30 ML IV SCH (14:13)
[2017-09-30] MEDS: LEVOFLOXACIN 500 MG TAB PO SCH (20:32)
[2017-09-30] MEDS: diphenhydrAMINE HCL 25 MG CAP PO PRN (20:41)
[2017-09-30] MEDS: diphenhydrAMINE HCL 50 MG/ML VIAL IM PRN (23:24)
[2017-10-01] VITALS (11 sets, daily range): BP systolic 86–122; BP diastolic 51–65; PULSE 70–131; RESP 23–29; TEMP 97.8–100.9; O2SAT 95–98
[2017-10-01] MEDS: HEPARIN SODIUM - SQ 10,000 UNITS/ML VIAL SQ SCH ×2 (03:26→14:50)
[2017-10-01 04:55] LABS: HEMATOCRIT 23.8 % (39.0-51.0); MEAN CELL VOLUME 88.6 FL (80.0-100.0); MEAN CORPUSCULAR HEMOGLOBIN 29.7 PG (27.0-34.0); MEAN CORPUSCULAR HGB CONC 33.5 % (32.0-36.0); MEAN PLATELET VOLUME 8.7 FL (7.0-11.0); PLATELET COUNT 120 TH/MM3 (150-450); RED BLOOD COUNT 2.69 MIL/MM3 (4.50-5.90); RED CELL DISTRIBUTION WIDTH 14.6 % (11.6-17.2); WHITE BLOOD COUNT 3.8 TH/MM3 (4.0-11.0)
[2017-10-01 05:18] LABS: BICARBONATE 21.4 MEQ/L (21.0-32.0); CALCIUM 8.6 MG/DL (8.5-10.1); CREATININE 9.65 MG/DL (0.60-1.30)
[2017-10-01] MEDS: PCA - TOTAL MG DILAUDID DELIVERED PER SHIFT OTHER SCH ×3 (06:00→22:00)
[2017-10-01] MEDS: METOCLOPRAMIDE HCL 10 MG/2 ML VIAL IV PUSH SCH ×3 (06:00→22:08)
[2017-10-01] MEDS: LEVOTHYROXINE SODIUM 50 MCG TAB PO SCH (06:04)
[2017-10-01] MEDS: ARTIFICIAL TEARS OPTH SOLN 15 ML BTL EACH EYE SCH ×3 (06:04→22:00)
[2017-10-01] MEDS: CARVEDILOL 3.125 MG TAB PO SCH ×2 (08:50→22:07)
[2017-10-01] MEDS: METOPROLOL SUCCINATE 25 MG EXTENDED RELEASE TAB PO SCH ×2 (08:51→09:00)
[2017-10-01] MEDS: amLODIPine BESYLATE 5 MG TAB PO SCH (08:51)
[2017-10-01] MEDS: CALCIUM ACETATE 667 MG CAP PEG SCH ×3 (08:51→17:38)
[2017-10-01] MEDS: CHOLECALCIFEROL (VIT D3) LIQ 400 UNITS/ML 50 ML BOTTLE PO SCH (08:54)
[2017-10-01] MEDS: PANTOPRAZOLE SODIUM 40 MG VIAL IVP SCH (08:54)
[2017-10-01] MEDS ORDERED: CARVEDILOL 3.125 MG TAB PO ONE (10:00)
[2017-10-01] MEDS ORDERED: METOPROLOL TARTRATE 25 MG TAB PO SCH (10:00)
--- NOTE | 2017-10-01 10:00 | HHI.PR ---
Subjective Remarks Follow-up weakness, respiratory failure. The patient states that he is feeling better today. No nausea or vomiting. Pain is adequately controlled. He is using the EQUALIZER OPERATOR pump occasionally. Denies shortness of breath or chest pain. Objective Vitals Vital Signs Date Time Temp Pulse Resp B/P (MAP) Pulse Ox O2 Delivery O2 Flow Rate FiO2 10/01/17 07:45 95 Nasal Cannula 2.00 10/01/17 07:00 95 Nasal Cannula 2.00 10/01/17 06:00 113 10/01/17 06:00 22 10/01/17 04:00 70 10/01/17 04:00 98.4 118 28 122/65 (84) 96 10/01/17 02:00 110 10/01/17 00:00 98.7 108 26 113/64 (80) 96 10/01/17 00:00 108 09/30/17 22:00 117 09/30/17 20:00 117 09/30/17 20:00 98.7 116 26 107/61 (76) 95 09/30/17 19:00 96 Room Air 21 09/30/17 18:00 122 09/30/17 16:00 97.8 118 25 110/59 (76) 94 09/30/17 16:00 116 09/30/17 14:13 25 09/30/17 14:00 112 09/30/17 14:00 25 09/30/17 12:00 97.6 108 24 102/59 (73) 95 09/30/17 12:00 108 09/30/17 10:10 97 21 09/30/17 10:00 116 I/O 09/30/17 09/30/17 09/30/17 10/01/17 10/01/17 10/01/17 07:00 15:00 23:00 07:00 15:00 23:00 Intake Total 962 ml 915 ml 1366 ml Output Total 630 ml 770 ml 1065 ml Balance 332 ml 145 ml 301 ml Intake Oral 420 ml IV Total 350 ml 360 ml 344 ml Tube Feeding 592 ml 465 ml 582 ml Tube Irrigant 20 ml 90 ml 20 ml Output Urine Total 50 ml 65 ml 100 ml Stool Total 550 ml 650 ml 950 ml Drainage Total 30 ml 55 ml 15 ml Result Diagram: 10/01/171 10/01/17 0441 Imaging Last Impressions Abdomen/Pelvis CT 4/17/18 0600 Signed Impressions: Service Date/Time: Monday, September 25, 2017 09:36 - CONCLUSION: 1. Minimal ascites without abscess. 2. Surgical drain left abdomen. 3. Small pleural effusions and left basilar consolidation. Right lung base has improved. 4. Stable hepatic low densities and right renal cyst. 5. Cholelithiasis. Lazarus Penaloza MD Chest X-Ray 09/24/17 0000 Signed Impressions: Service Date/Time: Sunday, September 24, 2017 14:34 - CONCLUSION: Trach tube in good position without pneumothorax with interval improvement in appearance the lungs. Ashu Aranda MD FACR Liver Ultrasound 09/15/17 0000 Signed Impressions: Service Date/Time: Friday, September 15, 2017 07:34 - CONCLUSION: The liver appears mildly enlarged and decreased in echogenicity concerning for edema. The gallbladder is distended with sludge. No discrete stones are visualized. There is mild wall thickening of the gallbladder present. The spleen is overall normal in size and grossly normal in echotexture. Small amount of free fluid seen adjacent to the spleen. Vida Levine MD Abdomen X-Ray 09/13/17 0000 Signed Impressions: Service Date/Time: September 10:52 - CONCLUSION: Gastric tube tip and side-port project over the stomach. Andrés Gardner MD Renal Ultrasound 09/10/17 0000 Signed Impressions: Service Date/Time: Sunday, September 10, 2017 15:17 - CONCLUSION: No evidence of mass or hydronephrosis. Andrés Gardner MD Objective Remarks General: No acute distress. NG tube in place. Tracheostomy. Heart: Regular rate and rhythm. No murmur. Lungs: Clear to auscultation bilaterally. No wheezes, rales, or rhonchi. Breathing is nonlabored. Abdomen: Soft, nondistended. Wound VAC in place on midline incision. Wearing binder. Ileostomy. Extremities: No lower extremity edema. Psych: Alert and oriented. Neuro: Normal speech. No focal deficits noted. Procedures 09/07/17 cystoscopy with bilateral ureteral catheter insertion 09/07/17 exploratory laparoscopy with robotic takedown of splenic flexure, colonoscopy with tattooing and robotic ascending colectomy 09/11/17 exploratory laparotomy with diverting ileostomy 09/11/17 central line placement 09/16/17 hemodialysis catheter placement 09/20/17 emergency intubation for acute hypoxemic respiratory failure 09/20/17 fiberoptic bronchoscopy with therapeutic lavage 09/24/17 therapeutic flexible fiberoptic bronchoscopy 09/24/17 percutaneous tracheostomy tube placement Urinary Catheter: Yes Assessment to: Continue Canela insert reason: Surgical/Invasive Proced Vascular Central Line Catheter: No A/P Assessment and Plan 1. Severe septic shock: Secondary to peritonitis. Resolved. Off pressors. Blood culture from 09/13/17 growing Enterobacter, pansensitive. Continue Levaquin. 2. Small bowel enterotomy with leakage of small bowel contents, peritonitis: Status post ex lap, diverting ileostomy. Management per colorectal surgery. Wound VAC in place. Pain control with Dilaudid EQUALIZER OPERATOR. 3. Toxic metabolic encephalopathy: Mental status is significantly improved. Patient is alert and oriented. 4. Acute hypoxemic respiratory failure: Resolved. Tracheostomy capped. On oxygen per nasal cannula. 5. Acute renal failure: Appreciate nephrology recommendations. Continue hemodialysis. 6. Atrial fibrillation with RVR: Now in sinus tachycardia. Increased dose of carvedilol. Stop metoprolol. Off amiodarone drip. 7. Hyperglycemia: Improved. Monitor Accu-Cheks and cover with sliding scale insulin. 8. History of gout: Allopurinol on hold. 9. Hypothyroidism: Continue Synthroid. 10. DVT prophylaxis: SCDs, MANDY hose, heparin. 11. GI prophylaxis: Protonix. 12. FEN: Patient has NG tube and is receiving tube feeds. He has been trying to take small amounts of food and drink by mouth, but is hesitant to do so. 13. Hypertension: Continue amlodipine. Discontinue metoprolol. Increased dose of carvedilol. Clonidine as needed. Michael Talbot MD Oct 01, 2017 10:00
--- NOTE | 2017-10-01 11:37 | HHI.NPPN ---
Subjective General Problems: Anemia, Edema Renal Failure: Acute Interval History Sitting up in a chair. Able to speak with P valve on, oxygen via NC. Seen during dialysis. Additional Remarks . (Helena Malave) Review of Systems Respiratory Respiratory Remarks Denies SOB (Helena Malave) Gastrointestinal GI Remarks Denies Abdominal pain (Helena Malave) Musculoskeletal MS Remarks back pain (Helena Malave) Objective Data Data Vital Signs Date Time Temp Pulse Resp B/P (MAP) Pulse Ox O2 Delivery O2 Flow Rate FiO2 10/01/17 07:45 95 Nasal Cannula 2.00 10/01/17 07:00 95 Nasal Cannula 2.00 10/01/17 06:00 113 10/01/17 06:00 22 10/01/17 04:00 70 10/01/17 04:00 98.4 118 28 122/65 (84) 96 10/01/17 02:00 110 10/01/17 00:00 98.7 108 26 113/64 (80) 96 10/01/17 00:00 108 09/30/17 22:00 117 09/30/17 20:00 117 09/30/17 20:00 98.7 116 26 107/61 (76) 95 09/30/17 19:00 96 Room Air 21 09/30/17 18:00 122 09/30/17 16:00 97.8 118 25 110/59 (76) 94 09/30/17 16:00 116 09/30/17 14:13 25 09/30/17 14:00 112 09/30/17 14:00 25 09/30/17 12:00 97.6 108 24 102/59 (73) 95 09/30/17 12:00 108 (Helena Malave) -: 10/01/17 0441 10/01/17 0441 Tubes & Lines: Perma-Cath, Canela Tubes & Lines Comment TLC right IJ ileostomy RLQ BRANDEN drains x 2 abd (Helena Malave) Physical Exam General Appearance: Well Developed, Comfortable Appearance Remarks trach, not on vent, not in distress (Helena Malave) Throat Throat Exam: Oral Mucosa [place] & Moist Throat Remarks trach (Helena Malave) Neck Neck Exam: Neck Supple (Helena Malave) Pulmonary Resp Exam: Breath Sounds Equal, No Distress, Decreased Bases (Helena Malave) Cardiology CV Exam: Regular, Normal Sinus Rhythm (Helena Malave) Gastrointestinal/Abdomen GI Exam: Soft, Positive Bowel Movement, Distended, Bowel Sounds Hypoactive GI Remarks abd binder in place, BRANDEN drain in place x2 ileostomy, stoma is pink, has small output (Helena Malave) Genitourinary Remarks oliguric, urine output may be increasing (Helena Malave) Musculoskeletal MS Exam: Joints Intact, Good Strength, Unable to Ambulate (Helena Malave) Integumentary Skin Exam: Warm, Dry, Intact Skin Remarks midabdominal incision (Helena Malave) Extremeties Extremities Exam: Pedal Pulses Palpable, Moderate Edema (Helena Malave) Neurologic Neuro Exam: Alert, Awake (Helena Malave) Psychiatric Psych Exam: Appropriate Responses (Helena Malave) VTE Prophylaxis Device: SCDs (Helena Malave) Assessment/Plan Discussed Condition With: Patient Assessment Summary: JOSEF/Acute Renal Failure, Acute Tubular Necrosis Electrolyte Assessment: Hypocalcemia Problem List: (1) JOSEF (acute kidney injury) ICD Codes: N17.9 - Acute kidney failure, unspecified Plan: His renal function is normal at baseline Oliguric renal failure, ATN, secondary to sepsis On CRRT from 09/11-09/12; IHD started 09/13 He has been hypercatabolic, requiring 4 hours dialysis treatments MWF Seen during HD today on a 2K, 200 BFR, goal 1L Poor flow though dialysis catheter. Make NPO after midnight, PC placement in AM Repeat labs daily Avoid nephrotoxic agents Monitor urine output, await renal recovery On calcium acetate with tube feeding for hyperphosphatemia D/W patient (2) S/P partial colectomy ICD Codes: Z90.49 - Acquired absence of other specified parts of digestive tract Plan: He developed small bowel perforation after robotic surgery, s/p emergent ex lap with I&D 4/3 Management per surgery and CCM has ileostomy that is draining Continue supportive care for sepsis and renal failure On tube feed , rate increased. Prognosis is guarded. (3) Sepsis ICD Codes: A41.9 - Sepsis, unspecified organism Plan: On Levaquin. ID is managing. (4) Hypocalcemia ICD Codes: E83.51 - Hypocalcemia Plan: On liquid vitamin D for deficiency (Helena Malave) Problem List: (1) JOSEF (acute kidney injury) ICD Codes: N17.9 - Acute kidney failure, unspecified Plan: His renal function is normal at baseline Oliguric renal failure, ATN, secondary to sepsis On CRRT from 09/11-09/12; IHD started 09/13 He has been hypercatabolic, requiring 4 hours dialysis treatments MWF Seen during HD today on a 2K, 200 BFR, goal 1L Poor flow though dialysis catheter. Make NPO after midnight, PC placement in AM Repeat labs daily Avoid nephrotoxic agents Monitor urine output, await renal recovery On calcium acetate with tube feeding for hyperphosphatemia D/W patient (2) S/P partial colectomy ICD Codes: Z90.49 - Acquired absence of other specified parts of digestive tract Plan: He developed small bowel perforation after robotic surgery, s/p emergent ex lap with I&D 4/3 Management per surgery and CCM has ileostomy that is draining Continue supportive care for sepsis and renal failure On tube feed , rate increased. Prognosis is guarded. (3) Sepsis ICD Codes: A41.9 - Sepsis, unspecified organism Plan: On Levaquin. ID is managing. (4) Hypocalcemia ICD Codes: E83.51 - Hypocalcemia Plan: On liquid vitamin D for deficiency Plan patient was seen and examined, seen during dialysis. PermCath placement as blood flow rate is low. (Nish Zhu MD) Helena Malave Oct 01, 2017 11:37 Nish Zhu MD Oct 02, 2017 10:15
--- NOTE | 2017-10-01 12:49 | HHI.IDPN ---
Subjective Subjective Remarks is a 67 y/o CM with PMHx significant for CAD, s/p PCI and stents. He was repeatedly diagnosed with sessile polyp and underwent exploratory laparoscopy with robotic takedown of splenic flexure, colonoscopy with tattooing and robotic ascending colectomy on 09/07/17 by . Reportedly, the urine output was low and urology was consulted when despite IVF urine output did not increase. Patient was seen by and underwent cystoscopy and bilateral ureteral catheter insertion with 500 cc of urine obtained. During the hospital stay patient subsequently had abdominal distention and despite NG tube to suction continued to have worsening distention and discomfort. A KUB done earlier on the day of CT on 09/11/2017 was negative for free air but subsequent imaging showed free air so patient was emergently taken to the OR by . Patient was found to have a small bowel defect and large amounts of of bowel contents were visible in peritoneum per op note. Critical Care was consulted and patient is currently being treated for Septic Shock with multiple pressors, IVF boluses given yday. He had low urine output and Nephrology is on the case and CVVHD initiated. Patient had issues with clotting of access line so CVVHD has been interrupted off and on. Patient is currently intubated on a ventilator. Not much resp secretions. Ileostomy output ok. Platelets have been low but no obvious bleeding from any sites. Patient remains sedated on vent. Patient has been started on empiric antibiotics Zosyn IV, Vanco IV x 1 dose, Flagyl IV, Micafungin IV. Left IJ Vascath placed on 09/11/2017 ID consulted for evaluation and Mment of Septic Shock, Secondary peritonitis. Overnight events reviewed with RN No fevers No rash No diarrhea S/P trach Underwent HD today. Antibiotics Current Medications Medications (Trade) Dose Ordered Sig/Emilee Route Start Time Stop Time Status Last Admin (Protonix Inj) 40 mg DAILY IVP 09/08/17 09:00 10/01/17 08:54 (Zofran Inj) 4 mg Q6H PRN IV PUSH 09/07/17 16:00 09/08/17 01:06 (Vasotec Inj) 1.25 mg Q4H PRN IV PUSH 09/07/17 16:00 Future Hold (Vasotec Inj) 2.5 mg Q6H PRN IV PUSH 09/07/17 16:00 Future Hold Potassium Chloride 100 ml @ 50 mls/hr UNSCH PRN IV 09/07/17 16:00 Potassium Chloride 100 ml @ 25 mls/hr UNSCH PRN IV-CENTRAL 09/07/17 16:00 (Heparin Inj) 5,000 units Q12H SQ 09/08/17 15:00 Future hold 10/01/17 03:26 (Narcan Inj) 0.4 mg UNSCH PRN IV PUSH 09/07/17 16:00 (Benadryl Inj) 25 mg Q6H PRN IV PUSH 09/07/17 16:00 (Norvasc) 5 mg DAILY PO 09/08/17 09:00 Future hold 10/01/17 08:51 (Dilaudid Pf Inj) 0.2 mg Q3H PRN IV 09/08/17 21:45 09/29/17 12:50 (Benadryl Inj) 25 mg HS PRN IV PUSH 09/10/17 20:15 Sodium Chloride 1,000 ml @ 0 mls/hr Q0M PRN OTHER 09/11/17 09:25 09/16/17 20:09 (Heparin Inj) 8,000 units UNSCH PRN IV FLUSH 09/11/17 09:30 09/17/17 15:47 Sodium Chloride 1,000 ml @ 200 mls/hr Q5H PRN IV 09/11/17 09:25 Sodium Chloride 1,000 ml @ 0 mls/hr Q0M PRN OTHER 09/11/17 09:25 (Mannitol Inj) 12.5 gm UNSCH PRN IV 09/11/17 09:30 Albumin Human 100 ml @ 60 mls/hr UNSCH PRN IV 09/11/17 09:30 09/24/17 14:45 (NS Flush) 5 ml UNSCH PRN IV FLUSH 09/11/17 09:30 09/19/17 19:57 (Heparin Inj) UNSCH PRN .XX 09/11/17 09:30 09/26/17 16:37 (Gentamicin Inj) 20 mg UNSCH PRN OTHER 09/11/17 09:30 09/26/17 16:38 (Zofran Inj) 4 mg UNSCH PRN IV PUSH 09/11/17 09:30 (Tylenol) 650 mg UNSCH PRN PO 09/11/17 09:30 09/29/17 02:56 (Benadryl) 25 mg UNSCH PRN PO 09/11/17 09:30 09/30/17 20:41 (Nitrostat Sl) 0.4 mg UNSCH PRN SL 09/11/17 09:30 (Catapres) 0.1 mg UNSCH PRN PO 09/11/17 09:30 (Gelfoam 12 Mm/7 Mm Top) 1 foam UNSCH PRN TOP 09/11/17 09:30 Amiodarone HCl 450 mg/Sodium Chloride 250 ml @ 33.33 mls/ hr Q7H31M PRN IV 09/11/17 12:00 09/18/17 12:19 Propofol 100 ml @ 2.895 mls/ hr TITRATE PRN IV 09/11/17 12:45 09/19/17 06:46 Sodium Chloride 1,000 ml @ 0 mls/hr UNSCH PRN OTHER 09/11/17 13:00 (KCl 40 Meq Premix Inj) *FOR DIALYSIS USE IN C... WITH DIALYSIS PRN .XX 09/11/17 13:00 (Brethine Inj) 1 mg UNSCH PRN SQ 09/11/17 16:45 Fentanyl Citrate 250 ml @ 5 mls/hr TITRATE PRN IV 09/12/17 11:00 09/19/17 06:07 (Tears Naturale Opth Soln) 1 drop Q8HR EACH EYE 09/14/17 14:00 10/01/17 06:04 (Albuterol Neb) 2.5 mg Q2HR NEB PRN NEB 09/14/17 09:00 09/23/17 10:34 (Synthroid) 50 mcg DAILY@0600 PO 09/15/17 06:00 10/01/17 06:04 (Vitamin D Liq) 2,000 units DAILY PO 09/14/17 14:30 10/01/17 08:54 (Trandate Inj) 20 mg Q2H PRN IV PUSH 09/15/17 14:00 09/25/17 06:10 (Apresoline Inj) 10 mg Q30M PRN IV PUSH 09/15/17 14:00 09/22/17 13:41 (Reglan Inj) 5 mg Q8HR IV PUSH 09/17/17 22:00 09/30/17 14:14 (Tylenol) 1,000 mg Q8H PRN PO 09/18/17 09:00 09/26/17 06:19 Epinephrine HCl 2 mg/Dextrose 250 ml @ 22.5 mls/hr TITRATE PRN IV 09/20/17 19:45 Vasopressin 40 units/Dextrose 100 ml @ 6 mls/hr TITRATE PRN IV 09/20/17 19:45 09/21/17 02:44 Dobutamine HCl/ Dextrose 250 ml @ 11.985 mls/ hr TITRATE PRN IV 09/20/17 19:45 09/21/17 15:00 (Levaquin) 500 mg Q48H PO 09/26/17 21:00 09/30/17 20:32 (Phoslo) 1,334 mg TID PEG 09/28/17 13:00 10/01/17 08:51 (Narcan Inj) 0.4 mg UNSCH PRN IV PUSH 09/29/17 12:45 (Dilaudid PAYROLL BOOKKEEPER Inj) 6 mg UNSCH IV 09/29/17 12:45 09/30/17 14:13 PAYROLL BOOKKEEPER Dosage Infused (Pha) 1 Q8HR OTHER 09/29/17 14:00 10/01/17 06:00 (Benadryl Inj) 50 mg HS PRN IM 09/29/17 12:45 09/30/17 23:24 (Coreg) 6.25 mg Q12HR PO 10/01/17 21:00 Lines Line sites with no e.o infection Past Medical History reviewed Allergies: Coded Allergies: No Known Allergies (Unverified Allergy, Unknown, 09/07/17) Objective . Vital Signs Date Time Temp Pulse Resp B/P (MAP) Pulse Ox O2 Delivery O2 Flow Rate FiO2 10/01/17 07:45 95 Nasal Cannula 2.00 10/01/17 07:00 95 Nasal Cannula 2.00 10/01/17 06:00 113 10/01/17 06:00 22 10/01/17 04:00 70 10/01/17 04:00 98.4 118 28 122/65 (84) 96 10/01/17 02:00 110 10/01/17 00:00 98.7 108 26 113/64 (80) 96 10/01/17 00:00 108 09/30/17 22:00 117 09/30/17 20:00 117 09/30/17 20:00 98.7 116 26 107/61 (76) 95 09/30/17 19:00 96 Room Air 21 09/30/17 18:00 122 09/30/17 16:00 97.8 118 25 110/59 (76) 94 09/30/17 16:00 116 09/30/17 14:13 25 09/30/17 14:00 112 09/30/17 14:00 25 . Laboratory Tests Test 10/01/17 04:41 White Blood Count 3.8 TH/MM3 Red Blood Count 2.69 MIL/MM3 Hemoglobin 8.0 GM/DL Hematocrit 23.8 % Mean Corpuscular Volume 88.6 FL Mean Corpuscular Hemoglobin 29.7 PG Mean Corpuscular Hemoglobin Concent 33.5 % Red Cell Distribution Width 14.6 % Platelet Count 120 TH/MM3 Mean Platelet Volume 8.7 FL Laboratory Tests Test 09/30/17 09:30 10/01/17 04:41 Blood Urea Nitrogen 103 MG/DL 125 MG/DL Creatinine 8.59 MG/DL 9.65 MG/DL Random Glucose 109 MG/DL 141 MG/DL Albumin 2.3 GM/DL Calcium Level 8.9 MG/DL 8.6 MG/DL Phosphorus Level 7.9 MG/DL Sodium Level 140 MEQ/L 138 MEQ/L Potassium Level 5.3 MEQ/L 5.0 MEQ/L Chloride Level 100 MEQ/L 97 MEQ/L Carbon Dioxide Level 23.9 MEQ/L 21.4 MEQ/L Anion Gap 16 MEQ/L 20 MEQ/L Estimat Glomerular Filtration Rate 6 ML/MIN 5 ML/MIN Imaging Last Impressions Chest X-Ray 09/21/17 0600 Signed Impressions: Service Date/Time: Thursday, September 21, 2017 03:33 - CONCLUSION: Slight interval worsening in aeration Michele Coleman MD Abdomen/Pelvis CT 09/18/17 0000 Signed Impressions: Service Date/Time: Monday, September 18, 2017 15:55 - CONCLUSION: 1. No evidence of intra-abdominal abscess. 2. Small bilateral pleural effusions with adjacent alveolar consolidations consistent with compressive atelectasis or pneumonia. Clinical correlation is recommended. 3. Cholelithiasis. 4. 8.5 cm right renal cyst. 5. Degenerative changes and scoliosis of the thoraco-lumbar spine. 6. 2 low-density lesions within the liver measuring 1.8 cm in the right dome and 1.2 cm in the inferior right lobe which are indeterminate on this unenhanced examination. 7. Cardiomegaly and coronary artery calcification noted. Edwin Marie MD Liver Ultrasound 09/15/17 0000 Signed Impressions: Service Date/Time: Friday, September 15, 2017 07:34 - CONCLUSION: The liver appears mildly enlarged and decreased in echogenicity concerning for edema. The gallbladder is distended with sludge. No discrete stones are visualized. There is mild wall thickening of the gallbladder present. The spleen is overall normal in size and grossly normal in echotexture. Small amount of free fluid seen adjacent to the spleen. Vida Levine MD Abdomen X-Ray 09/13/17 0000 Signed Impressions: Service Date/Time: September 10:52 - CONCLUSION: Gastric tube tip and side-port project over the stomach. Andrés Gardner MD Renal Ultrasound 09/10/17 0000 Signed Impressions: Service Date/Time: Sunday, September 10, 2017 15:17 - CONCLUSION: No evidence of mass or hydronephrosis. Andrés Gardner MD Physical Exam GENERAL: awake, focusing, On PM valve, vocalizing. SKIN: Cool and dry. No rash or ecchymoses. Edematous HEAD: Atraumatic. Normocephalic. EYES: Pupils equal round and reactive. No scleral icterus. No injection or drainage. ENT: Trach site ok. NECK: Trachea midline. Supple, nontender, no meningeal signs. CARDIOVASCULAR: HS audible. RESPIRATORY: Clear to auscultation. Breath sounds equal bilaterally but decreased in the bases. GASTROINTESTINAL: Abdomen soft, Ostomy bag with yellow stool. MUSCULOSKELETAL: Extremities without clubbing, cyanosis. : small amount of dark urine in urinary bag NEUROLOGICAL: Awake, responding, following commands. Moves all extremities Psych Cooperative IV line sites with no e.o infection. Assessment & Plan Remarks Possible new sepsis. Elevated WBC count and fever. Secondary peritonitis due to small bowel perforation s/p Enterotomy and washout , has an end ileostomy Abdominal wound infection E.cloacae. S/P robotic splenic flexure takedown on 09/07/17 S/P cystoscopy with bilateral ureteroscopies on 09/07/2017 Thrombocytopenia: sepsis, DIC - seems to have plateau Acute renal failure: prerenal, sepsis. Pulmonary infiltrate, BAL with nl resp angel Recs: ALICIA Benítez. Follow clinically. Will sign off please call back if any change in clinical condition or questions. Lu Orozco MD Oct 01, 2017 12:49
--- NOTE | 2017-10-01 14:47 | HHI.PR ---
Subjective Remarks POD#24 s/p robotic ascending colectomy/POD#20 exploratory lap with diverting ileostomy Intubated, alert, oriented Objective Vital Signs Date Time Temp Pulse Resp B/P (MAP) Pulse Ox O2 Delivery O2 Flow Rate FiO2 10/01/17 07:45 95 Nasal Cannula 2.00 10/01/17 07:00 95 Nasal Cannula 2.00 10/01/17 06:00 113 10/01/17 06:00 22 10/01/17 04:00 70 10/01/17 04:00 98.4 118 28 122/65 (84) 96 10/01/17 02:00 110 10/01/17 00:00 98.7 108 26 113/64 (80) 96 10/01/17 00:00 108 09/30/17 22:00 117 09/30/17 20:00 117 09/30/17 20:00 98.7 116 26 107/61 (76) 95 09/30/17 19:00 96 Room Air 21 09/30/17 18:00 122 09/30/17 16:00 97.8 118 25 110/59 (76) 94 09/30/17 16:00 116 I/O 09/30/17 09/30/17 09/30/17 10/01/17 10/01/17 10/01/17 07:00 15:00 23:00 07:00 15:00 23:00 Intake Total 962 ml 915 ml 1366 ml Output Total 630 ml 770 ml 1065 ml 1000 ml Balance 332 ml 145 ml 301 ml -1000 ml Intake Oral 420 ml IV Total 350 ml 360 ml 344 ml Tube Feeding 592 ml 465 ml 582 ml Tube Irrigant 20 ml 90 ml 20 ml Output Urine Total 50 ml 65 ml 100 ml Stool Total 550 ml 650 ml 950 ml Drainage Total 30 ml 55 ml 15 ml Hemodialysis 1000 ml Result Diagram: 10/01/1744010/01/17440 Objective Remarks Abdomen soft, nondistended ileostomy pink, thicker output midline wound vac in place, edges clean LUQ wound, appears wheel cleaner, still with small drainage RLQ port site - opened further, moderate brownish aguilar drainage, cellulitis much improved BRANDEN - continues brownish aguilar Assessment and Plan Assessment and Plan transverse colon polyp/sb enterotomy NEURO - responsive CV - stable PULM - trach, tolerating T-piece GI -puree diet for now, continue TF's until able to maintain calories NPO tonight for VasCath tomorrow, will continue feeds tomorrow. Then will change to night feeds to stimulate appetite FEN - HD MWF, watch ileo output - HD ID - wound vac,LUQ/RLQ wounds wet-dry Heme - stable Continue aggressive PT Improving low grade temp - follow closely Ivory Mcclellan MD Oct 01, 2017 14:47
--- NOTE | 2017-10-01 16:18 | PD.WCN.NOT ---
Wound Consult Description: Midline incision Wound VAC changed 10/01/17 by job specification writer and Lacei Tolentino NIDA Communicated with: Dr Eleuterio Jordan, RN Patient Recommendation: Midline incision: Wound VAC changes using medium foam dressing and adaptic in the base of the wound bed to cover sutures. Every M-W-F dressing changes with settings @125mmHg low continuous suction. Maxorb Extra AG over saima superiorly and distally to wound bed. Ileostomy: Change ileostomy pouching system using 1 3/4" wafer and pouch with every VAC change and PRN for leaking. Lightly packing mucocutaneous junction separation using Maxorb Extra AG from 8- 11 and 12-3 o'clock. Empty pouch when 1/3-1/2 full. Left upper abdomen: Cleanse with NS and gauze Loosely pack with Maxorb Extra AG Cover with bordered gauze Change dressing every Other day Right lower abdomen: Wound with wicking gauze change daily Change wound manager cleaning pouch as needed Additional Information: Patient seen on for ostomy appliance change, Wound VAC change to midline incision, packing to left upper abdomen, wound manager cleaning pouching to right lower abdomen. Left upper abdomen wound measures ~1cm x ~7cm x 2.8cm with yellow/green drainage that was cleansed with NS and gauze and gently packed with Maxorb Extra AG change EOD. Right lower abdomen wound measures ~0.3cm x ~3cm x 2.4cm with aguilar/yellow drainage that was cleansed with NS and gauze with a wound manager cleaning placed by and wicked by Dr Mcclellan. Neg Pressure Wound Therapy Wound Location Wound Location: Midline incision Wound Description Length: 16.5cm Width: 4cm Depth: 4.5cm Undermining: ~1cm @12o'clock underneath saima Wound bed appearance: ~50% red granulation tissue ~40% yellow adipose tissue ~10% yellow adherent moist non friable tissue in wound base Moist wound bed with active thickening yellow drainage noted superiorly within wound Wound base is partially obscured with yellow adherent tissue with ~3 sutures visualized Wound margins are open from 10'oclock to 8 o'clock with soft black eschar noted at 9 o'clock measuring ~1.5cm x 2cmx 0cm. Periwound appearance: Other (Sutures noted superiorly within the 1st and 2nd saima. Distally there are saima. All saima covered with Maxorb and secured with VAC drape. ) Settings Suction: 125 mmHg, Continuous Intensity: Low Other Information: Bridged, Windowpaned, Mushroomed (One cut piece of granufoam used for trac pad placement.) Foam type: Black Number of pieces: 1 Ostomy Type: Ileostomy Surgeon: Ivory Mcclellan MD Date of Surgery: Sep 11, 2017 Additional information Ileostomy pouch changed using 1 3/4" moldable appliance. Stoma is noted to be sutured from 11-12 o'clock with mucocutaneous separation from 1-4 and 6-10 which was gently cleansed with NS and gauze and packed loosely with Maxorb Extra AG. Stoma is red, moist, functioning with bright yellow thick effluent from lumen noted @12 o'clock. Marie Schroeder [facility] Oct 01, 2017 16:18
--- NOTE | 2017-10-01 20:02 | MB ---
cc: Ernie Klein MD DATE: 10/01/2017 REASON FOR CONSULTATION: Postop respiratory failure. HISTORY OF PRESENT ILLNESS: Mr. Man is a 67-year-old male who had surgery for removal of polyp, which required an ascending colectomy with subsequent bilateral ureteral catheter placement. The patient required ventilatory support and subsequent tracheostomy, now off ventilator. The patient is alert and does have some congestion; however, he can cough effectively and remove secretions himself by a catheter. He denies history of fever or chills. PAST MEDICAL HISTORY: Hypertension, gout, coronary artery disease, chronic thrombocytopenia, previous laparotomy, colectomy for perforated viscus. PAST SURGICAL HISTORY: Notable for exploratory laparotomy, colectomy and surgery for perforated viscus. SOCIAL HISTORY: , lives with . Does not smoke or drink at present. Used to drink over 20 years ago. FAMILY HISTORY: Noncontributory. ALLERGIES: NONE KNOWN TO MEDICATION. CURRENT MEDICATIONS: Currently review MAR for same. SYSTEMS REVIEW: A 12-point review of systems as per HPI and past history, otherwise negative. PHYSICAL EXAMINATION: GENERAL: The patient is alert. VITAL SIGNS: Temperature is 98.4, pulse 90, respirations 18, blood pressure 120/70, oxygen saturation 96% on O2 at 2 liters nasal cannula. HEENT: Unremarkable. Eyes without icterus. NECK: Tracheostomy in place. CHEST: Few scattered rhonchi. ABDOMEN: Ostomy in place. Bowel sounds audible. EXTREMITIES: No clubbing, cyanosis or edema. LABORATORY DATA: Chest x-ray done 09/24/2017, with a tracheostomy in place, no pneumothorax. Atelectatic change and/or infiltrate improved. White count 3.8, hemoglobin 8, hematocrit 23, platelets 120,000. Sodium 138, potassium 5.0, BUN 125, creatinine 9.6. INR 1.2. Last ABG 09/19/ , pH 7.42, pCO2 of 37, pO2 of 82. IMPRESSION: 1. Respiratory failure, improved. 2. Sepsis followed by infectious disease, on antibiotic therapy. 3. Atelectatic change by chest x-ray, possibly infiltrate. 4. Thrombocytopenia. 5. Acute renal failure. PLAN: Patient to continue antibiotic therapy, is followed by infectious disease. Pulmonary toilet will be undertaken. Bronchodilator therapy as needed. We will follow and assess trach and removed when possible. His prognosis is guarded with his multiple medical problems. I do thank you for asking me to partake in Mr. Man's care. Ernie Klein MD WWW/GRAY , 06:12 PM , 08:01 PM
[2017-10-01] MEDS: diphenhydrAMINE HCL 25 MG CAP PO PRN (22:11)
[2017-10-02] VITALS (15 sets, daily range): BP systolic 103–125; BP diastolic 57–66; PULSE 96–112; RESP 23–27; TEMP 98.1–98.8; O2SAT 93–99
[2017-10-02] MEDS: ARTIFICIAL TEARS OPTH SOLN 15 ML BTL EACH EYE SCH ×3 (04:10→21:27)
[2017-10-02] MEDS: HEPARIN SODIUM - SQ 10,000 UNITS/ML VIAL SQ SCH ×2 (04:10→17:21)
[2017-10-02] MEDS: PCA - TOTAL MG DILAUDID DELIVERED PER SHIFT OTHER SCH (06:00)
[2017-10-02] MEDS: LEVOTHYROXINE SODIUM 50 MCG TAB PO SCH (06:00)
[2017-10-02] MEDS: METOCLOPRAMIDE HCL 10 MG/2 ML VIAL IV PUSH SCH ×3 (06:09→21:26)
[2017-10-02 06:49] LABS: MEAN CELL VOLUME 86.8 FL (80.0-100.0); MEAN CORPUSCULAR HEMOGLOBIN 30.2 PG (27.0-34.0); MEAN CORPUSCULAR HGB CONC 34.7 % (32.0-36.0); MEAN PLATELET VOLUME 8.8 FL (7.0-11.0); PLATELET COUNT 116 TH/MM3 (150-450); RED BLOOD COUNT 2.27 MIL/MM3 (4.50-5.90); RED CELL DISTRIBUTION WIDTH 14.2 % (11.6-17.2); WHITE BLOOD COUNT 4.8 TH/MM3 (4.0-11.0)
[2017-10-02 07:04] LABS: HEMATOCRIT 19.8 % (39.0-51.0); HEMOGLOBIN 6.9 GM/DL (13.0-17.0)
[2017-10-02 07:08] LABS: ALBUMIN 1.8 GM/DL (3.4-5.0); BICARBONATE 25.8 MEQ/L (21.0-32.0); CALCIUM 7.9 MG/DL (8.5-10.1); CREATININE 7.16 MG/DL (0.60-1.30); PHOSPHORUS 6.6 MG/DL (2.5-4.9)
[2017-10-02] MEDS ORDERED: SODIUM CHLOR 0.9% 250 ML INJ 250 ML IV ONE (07:30)
--- NOTE | 2017-10-02 08:51 | HHI.PR ---
Subjective Remarks ALERT NO DISTRESS EXCESS MUCOID SECREATION Objective Vital Signs Date Time Temp Pulse Resp B/P (MAP) Pulse Ox O2 Delivery O2 Flow Rate FiO2 10/02/17 07:54 93 10/02/17 06:00 107 10/02/17 06:00 23 10/02/17 04:00 102 10/02/17 04:00 98.8 104 24 114/62 (79) 93 10/02/17 02:00 97 10/02/17 00:00 97 10/02/17 00:00 98.8 97 24 103/58 (73) 99 10/01/17 22:00 110 10/01/17 22:00 25 10/01/17 20:00 112 10/01/17 20:00 98.6 114 29 102/60 (74) 96 10/01/17 19:00 96 Nasal Cannula 2.00 21 Trach Collar 10/01/17 17:00 116 29 101/59 (73) 98 10/01/17 16:00 100.9 130 27 86/51 (63) 97 10/01/17 15:03 24 10/01/17 12:00 100.9 131 28 100/59 (73) 95 I/O 10/01/17 10/01/17 10/01/17 10/02/17 10/02/17 10/02/17 07:00 15:00 23:00 07:00 15:00 23:00 Intake Total 1366 ml 1673 ml 680 ml Output Total 1065 ml 1000 ml 490 ml 600 ml Balance 301 ml -1000 ml 1183 ml 80 ml Intake Oral 420 ml 600 ml 120 ml IV Total 344 ml 469 ml Tube Feeding 582 ml 544 ml 360 ml Tube Irrigant 20 ml 60 ml Other 200 ml Output Urine Total 100 ml 75 ml 30 ml Stool Total 950 ml 400 ml 550 ml Drainage Total 15 ml 15 ml 20 ml Hemodialysis 1000 ml Result Diagram: 10/02/17 0554 10/02/17 0554 Objective Remarks GENERAL: SKIN: Warm and dry. HEAD: Atraumatic. Normocephalic. EYES: Pupils equal and round. No scleral icterus. No injection or drainage. ENT: No nasal bleeding or discharge. Mucous membranes pink and moist. NECK: Trachea midline. No JVD. CARDIOVASCULAR: Regular rate and rhythm. RESPIRATORY: No accessory muscle use. Clear to auscultation. Breath sounds equal bilaterally. TRACHEOSTOMY IN PLACE GASTROINTESTINAL: Abdomen soft, non-tender, nondistended. Hepatic and splenic margins not palpable. MUSCULOSKELETAL: Extremities without clubbing, cyanosis, or edema. No obvious deformities. NEUROLOGICAL: Awake and alert. No obvious cranial nerve deficits. Motor grossly within normal limits. Five out of 5 muscle strength in the arms and legs. Normal speech. PSYCHIATRIC: Appropriate mood and affect; insight and judgment normal. Assessment and Plan Assessment and Plan RESPIRATORY FAILURE S/P TRACHEOSTOMY S/P ABDOMINAL SURGURY ANEMIA PLAN O2 ANTIBX PULM TOILET CHANGE TRACH TO CUFFLESS Ernie Klein MD Oct 02, 2017 08:51
[2017-10-02] MEDS: amLODIPine BESYLATE 5 MG TAB PO SCH (09:00)
[2017-10-02] MEDS: CARVEDILOL 3.125 MG TAB PO SCH ×2 (09:00→21:25)
[2017-10-02 09:06] LABS: INTERNATIONAL NORMALIZED RATIO 1.5 RATIO; PROTHROMBIN TIME - PATIENT 14.7 SEC (9.8-11.6)
[2017-10-02 09:16] LABS: BANDS 33 % (0-6); BASOPHILS 2 % (0-2); BLASTS 1 % (0-0); LYMPHOCYTES 13 % (9-44); MONOCYTES 10 % (0-8); POLYS (SEG NEUTROPHILS) 30 % (16-70); TOXIC GRANULATION 2+ (NORMAL)
--- NOTE | 2017-10-02 09:35 | HHI.PR ---
Subjective Remarks POD#25 s/p robotic ascending colectomy/POD#21 exploratory lap with diverting ileostomy Intubated, alert, oriented Objective Vital Signs Date Time Temp Pulse Resp B/P (MAP) Pulse Ox O2 Delivery O2 Flow Rate FiO2 10/02/17 07:54 93 10/02/17 06:00 107 10/02/17 06:00 23 10/02/17 04:00 102 10/02/17 04:00 98.8 104 24 114/62 (79) 93 10/02/17 02:00 97 10/02/17 00:00 97 10/02/17 00:00 98.8 97 24 103/58 (73) 99 10/01/17 22:00 110 10/01/17 22:00 25 10/01/17 20:00 112 10/01/17 20:00 98.6 114 29 102/60 (74) 96 10/01/17 19:00 96 Nasal Cannula 2.00 21 Trach Collar 10/01/17 17:00 116 29 101/59 (73) 98 10/01/17 16:00 100.9 130 27 86/51 (63) 97 10/01/17 15:03 24 10/01/17 12:00 100.9 131 28 100/59 (73) 95 I/O 10/01/17 10/01/17 10/01/17 10/02/17 10/02/17 10/02/17 07:00 15:00 23:00 07:00 15:00 23:00 Intake Total 1366 ml 1673 ml 680 ml Output Total 1065 ml 1000 ml 490 ml 600 ml Balance 301 ml -1000 ml 1183 ml 80 ml Intake Oral 420 ml 600 ml 120 ml IV Total 344 ml 469 ml Tube Feeding 582 ml 544 ml 360 ml Tube Irrigant 20 ml 60 ml Other 200 ml Output Urine Total 100 ml 75 ml 30 ml Stool Total 950 ml 400 ml 550 ml Drainage Total 15 ml 15 ml 20 ml Hemodialysis 1000 ml Result Diagram: 10/02/17 0554 10/02/17 0554 Objective Remarks Abdomen soft, nondistended ileostomy pink, thicker output midline wound vac in place, edges clean LUQ wound, redressed with wet-dry, too soupy RLQ port site - redressed, moderate greyish drainage BRANDEN - continues brownish aguilar Assessment and Plan Assessment and Plan transverse colon polyp/sb enterotomy NEURO - responsive, d/c FEED GRINDER, use tylenol with codeine elixir CV - stable PULM - trach, tolerating T-piece on room O2 GI -puree diet for now, continue TF's until able to maintain calories NPO for VasCath currently, resume TFs after. FEN - 20 kg up, await nephrology input - ?lasix/bumex? - HD MWF ID - wound vac,LUQ/RLQ wounds wet-dry, WBC's ok Heme - 1 unit PRBC today, 1 unit tomorrow with dialysis Continue aggressive PT Improving Ivory Mcclellan MD Oct 02, 2017 09:35
[2017-10-02] MEDS: CALCIUM ACETATE 667 MG CAP PEG SCH ×3 (09:39→17:21)
[2017-10-02] MEDS: CHOLECALCIFEROL (VIT D3) LIQ 400 UNITS/ML 50 ML BOTTLE PO SCH (09:39)
[2017-10-02] MEDS ORDERED: ceFAZolin 2 GM PREMIX 50 ML IV SCH (10:00)
[2017-10-02] MEDS ORDERED: VANCOMYCIN INJ 1,000 MG in SODIUM CHLOR 0.9% 250 ML INJ 250 ML IV SCH (10:00)
--- NOTE | 2017-10-02 10:07 | HHI.PR ---
Subjective Remarks Follow-up weakness, respiratory failure, anemia. Patient states that he does not feel as good as yesterday. No chest pain or dyspnea. Some abdominal discomfort due to dressing changes. Dr. Mcclellan is at bedside changing dressings and ileostomy bag. Objective Vitals Vital Signs Date Time Temp Pulse Resp B/P (MAP) Pulse Ox O2 Delivery O2 Flow Rate FiO2 10/02/17 09:57 98.1 108 27 125/65 96 10/02/17 09:35 98.6 108 27 117/66 96 10/02/17 07:54 93 10/02/17 06:00 107 10/02/17 06:00 23 10/02/17 04:00 102 10/02/17 04:00 98.8 104 24 114/62 (79) 93 10/02/17 02:00 97 10/02/17 00:00 97 10/02/17 00:00 98.8 97 24 103/58 (73) 99 10/01/17 22:00 110 10/01/17 22:00 25 10/01/17 20:00 112 10/01/17 20:00 98.6 114 29 102/60 (74) 96 10/01/17 19:00 96 Nasal Cannula 2.00 21 Trach Collar 10/01/17 17:00 116 29 101/59 (73) 98 10/01/17 16:00 100.9 130 27 86/51 (63) 97 10/01/17 15:03 24 10/01/17 12:00 100.9 131 28 100/59 (73) 95 I/O 10/01/17 10/01/17 10/01/17 10/02/17 10/02/17 10/02/17 07:00 15:00 23:00 07:00 15:00 23:00 Intake Total 1366 ml 1673 ml 680 ml 100 ml Output Total 1065 ml 1000 ml 490 ml 600 ml Balance 301 ml -1000 ml 1183 ml 80 ml 100 ml Intake Oral 420 ml 600 ml 120 ml IV Total 344 ml 469 ml Tube Feeding 582 ml 544 ml 360 ml Blood Product IV Normal Saline Flush 100 ml Tube Irrigant 20 ml 60 ml Other 200 ml Output Urine Total 100 ml 75 ml 30 ml Stool Total 950 ml 400 ml 550 ml Drainage Total 15 ml 15 ml 20 ml Hemodialysis 1000 ml Result Diagram: 10/02/17 0554 10/02/17 0554 Imaging Last Impressions Abdomen/Pelvis CT 09/25/17 0600 Signed Impressions: Service Date/Time: Monday, September 25, 2017 09:36 - CONCLUSION: 1. Minimal ascites without abscess. 2. Surgical drain left abdomen. 3. Small pleural effusions and left basilar consolidation. Right lung base has improved. 4. Stable hepatic low densities and right renal cyst. 5. Cholelithiasis. Lazarus Penaloza MD Chest X-Ray 09/24/17 0000 Signed Impressions: Service Date/Time: Sunday, September 24, 2017 14:34 - CONCLUSION: Trach tube in good position without pneumothorax with interval improvement in appearance the lungs. Ashu Aranda MD FACR Liver Ultrasound 09/15/17 0000 Signed Impressions: Service Date/Time: Friday, September 15, 2017 07:34 - CONCLUSION: The liver appears mildly enlarged and decreased in echogenicity concerning for edema. The gallbladder is distended with sludge. No discrete stones are visualized. There is mild wall thickening of the gallbladder present. The spleen is overall normal in size and grossly normal in echotexture. Small amount of free fluid seen adjacent to the spleen. Vida Levine MD Abdomen X-Ray 09/13/17 0000 Signed Impressions: Service Date/Time: September 10:52 - CONCLUSION: Gastric tube tip and side-port project over the stomach. Andrés Gardner MD Renal Ultrasound 09/10/17 0000 Signed Impressions: Service Date/Time: Sunday, September 10, 2017 15:17 - CONCLUSION: No evidence of mass or hydronephrosis. Andrés Gardner MD Objective Remarks General: No acute distress. NG tube in place. Tracheostomy. Heart: Regular rate and rhythm. No murmur. Lungs: Clear to auscultation bilaterally. No wheezes, rales, or rhonchi. Breathing is nonlabored. Abdomen: Soft, nondistended. Wound VAC in place on midline incision. Ileostomy. Extremities: No lower extremity edema. Psych: Alert and oriented. Neuro: Normal speech. No focal deficits noted. Procedures 09/07/17 cystoscopy with bilateral ureteral catheter insertion 09/07/17 exploratory laparoscopy with robotic takedown of splenic flexure, colonoscopy with tattooing and robotic ascending colectomy 09/11/17 exploratory laparotomy with diverting ileostomy 09/11/17 central line placement 09/16/17 hemodialysis catheter placement 09/20/17 emergency intubation for acute hypoxemic respiratory failure 09/20/17 fiberoptic bronchoscopy with therapeutic lavage 09/24/17 therapeutic flexible fiberoptic bronchoscopy 09/24/17 percutaneous tracheostomy tube placement Urinary Catheter: No Vascular Central Line Catheter: No A/P Assessment and Plan 1. Severe septic shock: Secondary to peritonitis. Resolved. Off pressors. Blood culture from 09/13/17 growing Enterobacter, pansensitive. Continue Levaquin. 2. Small bowel enterotomy with leakage of small bowel contents, peritonitis: Status post ex lap, diverting ileostomy. Management per colorectal surgery. Wound VAC in place. Pain control with Dilaudid [employer] SUPER[employer]OR. Discussed with Dr. Mcclellan at bedside. 3. Toxic metabolic encephalopathy: Mental status is significantly improved. Patient is alert and oriented. 4. Acute hypoxemic respiratory failure: Resolved. Appreciate pulmonology recommendations. Tracheostomy being downsized by pulmonology. On oxygen per nasal cannula. 5. Acute renal failure: Appreciate nephrology recommendations. Continue hemodialysis. 6. Atrial fibrillation with RVR: Rate control improved. Increased dose of carvedilol. Stopped metoprolol. Off amiodarone drip. 7. Hyperglycemia: Improved. Monitor Accu-Cheks and cover with sliding scale insulin. 8. History of gout: Allopurinol on hold. 9. Hypothyroidism: Continue Synthroid. 10. DVT prophylaxis: SCDs, MANDY hose, heparin. 11. GI prophylaxis: Protonix. 12. FEN: Patient has NG tube and is receiving tube feeds. He has been trying to take small amounts of food and drink by mouth, but is hesitant to do so. 13. Hypertension: Continue amlodipine, carvedilol. Metoprolol discontinued. Clonidine as needed. 14. Anemia: Transfuse 1 unit PRBCs today and 1 unit tomorrow during dialysis, spacing out transfusions due to risk of fluid overload. Michael Talbot MD Oct 02, 2017 10:07
[2017-10-02] MEDS: PANTOPRAZOLE SODIUM 40 MG VIAL IVP SCH (10:16)
--- NOTE | 2017-10-02 11:11 | HHI.NPPN ---
Subjective General Problems: Anemia, Edema Renal Failure: Acute Interval History NPO for permcath placement today. Additional Remarks . (Helena Malave) Review of Systems Respiratory Respiratory Remarks Denies SOB (Helena Malave) Gastrointestinal GI Remarks Denies Abdominal pain (Helena Malave) Musculoskeletal MS Remarks back pain (Helena Malave) Objective Data Data 10/02/17 10/03/17 19:00 07:00 Intake Total 600 ml Balance 600 ml Packed Cells 400 ml Blood Product IV Normal Saline Flush 200 ml Vital Signs Date Time Temp Pulse Resp B/P (MAP) Pulse Ox O2 Delivery O2 Flow Rate FiO2 10/02/17 10:53 98.4 99 24 120/61 96 10/02/17 09:57 98.1 108 27 125/65 96 10/02/17 09:35 98.6 108 27 117/66 96 10/02/17 08:00 112 10/02/17 07:54 93 10/02/17 07:00 96 Room Air 10/02/17 06:00 107 10/02/17 06:00 23 10/02/17 04:00 102 10/02/17 04:00 98.8 104 24 114/62 (79) 93 10/02/17 02:00 97 10/02/17 00:00 97 10/02/17 00:00 98.8 97 24 103/58 (73) 99 10/01/17 22:00 110 10/01/17 22:00 25 10/01/17 20:00 112 10/01/17 20:00 98.6 114 29 102/60 (74) 96 10/01/17 19:00 96 Nasal Cannula 2.00 21 Trach Collar 10/01/17 17:00 116 29 101/59 (73) 98 10/01/17 16:00 100.9 130 27 86/51 (63) 97 10/01/17 15:03 24 10/01/17 12:00 100.9 131 28 100/59 (73) 95 (Helena Malave) -: 10/02/17 0554 10/02/17 0554 Tubes & Lines: Perma-Cath, Canela Tubes & Lines Comment TLC right IJ ileostomy RLQ BRANDEN drains x 2 abd (Helena Malave) Physical Exam General Appearance: Well Developed, Comfortable Appearance Remarks trach, not on vent, not in distress (Helena Malave) Throat Throat Exam: Oral Mucosa [place] & Moist Throat Remarks trach (Helena Malave) Neck Neck Exam: Neck Supple (Helena Malave) Pulmonary Resp Exam: Breath Sounds Equal, No Distress, Decreased Bases (Helena Malave) Cardiology CV Exam: Regular, Normal Sinus Rhythm (Helena Malave) Gastrointestinal/Abdomen GI Exam: Soft, Positive Bowel Movement, Distended, Bowel Sounds Hypoactive GI Remarks abd binder in place, BRANDEN drain in place x2 ileostomy, stoma is pink, has small output (Helena Malave) Genitourinary Remarks oliguric, urine output may be increasing (Helena Malave) Musculoskeletal MS Exam: Joints Intact, Good Strength, Unable to Ambulate (Helena Malave) Integumentary Skin Exam: Warm, Dry, Intact Skin Remarks midabdominal incision (Helena Malave) Extremeties Extremities Exam: Pedal Pulses Palpable, Moderate Edema (Helena Malave) Neurologic Neuro Exam: Alert, Awake (Helena Malave) Psychiatric Psych Exam: Appropriate Responses (Helena Malave) VTE Prophylaxis Device: SCDs (Helena Malave) Assessment/Plan Discussed Condition With: Patient Assessment Summary: JOSEF/Acute Renal Failure, Acute Tubular Necrosis Electrolyte Assessment: Hypocalcemia Problem List: (1) JOSEF (acute kidney injury) ICD Codes: N17.9 - Acute kidney failure, unspecified Plan: His renal function is normal at baseline Oliguric renal failure, ATN, secondary to sepsis On CRRT from 09/11-09/12; Intermittent HD started 09/13 He has been hypercatabolic, requiring 4 hours dialysis treatments MWF 1L UF yesterday Scheduled Permcath placement today Repeat labs daily Avoid nephrotoxic agents Monitor urine output, await renal recovery/ HD MWF as needed. On calcium acetate with tube feeding for hyperphosphatemia D/W patient (2) S/P partial colectomy ICD Codes: Z90.49 - Acquired absence of other specified parts of digestive tract Plan: He developed small bowel perforation after robotic surgery, s/p emergent ex lap with I&D 4/3 Management per surgery and CCM has ileostomy that is draining Continue supportive care for sepsis and renal failure On tube feed , rate increased. Prognosis is guarded. (3) Sepsis ICD Codes: A41.9 - Sepsis, unspecified organism Plan: On Levaquin. ID is managing. (4) Hypocalcemia ICD Codes: E83.51 - Hypocalcemia Plan: On liquid vitamin D for deficiency (5) Anemia ICD Codes: D64.9 - Anemia, unspecified Plan: Transfusion ordered for today (Helena Malave) Plan patient was seen and examined. Agree with above assessment and plan. PermCath placement today. (Nish Zhu MD) Helena Malave Oct 02, 2017 11:11 Nish Zhu MD Oct 02, 2017 14:50
[2017-10-02] MEDS ORDERED: MIDAZOLAM HCL 2 MG/2 ML VIAL ONE (13:21)
--- NOTE | 2017-10-02 14:23 | PD.RAD ---
Post Procedure Progress Note Pre Procedure Diagnosis: (1) JOSEF (acute kidney injury) Post Procedure Diagnosis: (1) JOSEF (acute kidney injury) Procedure Date: Oct 02, 2017 Supervising Radiologist: Andrés Cannon JR Proceduralist/Assist: Monster De Guzman, RT(R), Prerna Trujillo RT(R) Anesthesia: Conscious Sedation Plan of Activity Patient to Unit: Critical Care Patient Condition: Good See PACS Report for procedural detail/treatment Central Venous Access Device Procedure 1 Right Internal Jugular Hemodialysis Catheter Tunneled Placement dual lumen Setswana: 15 Findings: Permcath in good position and functions well. OK to use. Plan Remove sutures in 2-3 weeks. Jr. Davis,Andrés Juarez MD Oct 02, 2017 14:23
[2017-10-02] MEDS ORDERED: HEPARIN SODIUM - IV 2,000 UNITS/2 ML VIAL IV FLUSH PRN (14:30)
[2017-10-02] MEDS ORDERED: SODIUM CHLORIDE 0.9% FLUSH 10 ML FLUSH IV FLUSH PRN (14:30)
[2017-10-02] MEDS ORDERED: LIDOCAINE 1%/EPINEPHrine 1:100,000 SOLN 30 ML VIAL OTHER ONE (14:33)
[2017-10-02] MEDS ORDERED: HEPARIN SODIUM - IV 10,000 UNITS/10 ML VIAL IV FLUSH ONE (14:35)
--- NOTE | 2017-10-02 15:01 | RADRPT ---
EXAM DATE/TIME: 10/02/2017 13:33 [facility] COMPARISON: No previous studies available for comparison. INDICATIONS : Patient presents with acute renal failure in need of permanent central venous catheter placement for dialysis. MEDICAL HISTORY : HTN Gout CAD Chronic thrombocytopenia Acute renal failure SURGICAL HISTORY : Laparotomy Colectomy for perforated viscus ENCOUNTER: Initial ACUITY: 1 month PAIN SCORE: 0/10 LOCATION: N/A FLUORO TIME: 0.6 minutes IMAGE SERIES: 1 SEDATION TIME: 20 minutes ACCESS: Right internal jugular vein SEDATION: 1.) 2 mg midazolam (Versed) IV 2.) 100 mcg fentanyl (Sublimaze) IV Prophylactic antibiotics were administered with appropriate pre-procedure timing. Vancomycin within 2 hours of procedure, Ancef (or alternative) within 1 hour of procedure. DEVICE: 1. 15 [place] dual lumen 23 cm Talley II Plus catheter PROCEDURE : 1. Ultrasound-guided venipuncture. 2. PermaCath placement. 3. Conscious sedation with continuous EKG and oximetry monitoring. The risks, benefits and alternatives to the procedure were explained and verbal and written consent w as obtained. The site was prepped in sterile fashion. Full sterile technique was used, including ca p, mask, sterile gloves and gown and a large sterile sheet. Hand hygiene and 2% chlorhexidine and/or betadine/alcohol prep was utilized per protocol for cutaneous antisepsis. Sterile gel and sterile p robe cover were utilized for ultrasound guidance. The skin and subcutaneous tissues were infiltrated with local anesthetic solution. With ultrasound and fluoroscopic guidance a dermatotomy was created over the prescribed vein. A micr opuncture set was used to access the targeted vein and serial dilatation was performed to accept the prescribed length catheter. A subcutaneous tunnel was created in a retrograde fashion the catheter w as pulled through the tunnel. The catheter was flushed and assembled and locked with heparin. The c atheter was sutured in place. Conscious sedation was performed with the prescribed dosages and duration as above in the presence of an independent trained radiology nurse to assist in the monitoring of the patient. EKG and oximetry remained stable throughout the procedure. The patient tolerated the procedure well and there were n o complications. The patient was sent to post anesthesia recovery in stable condition. CONCLUSION: Uncomplicated PermaCath placement as above. Andrés Cannon Jr., MD on October 02, 2017 at 14:58 Board Certified Radiologist. This report was verified electronically.
[2017-10-02] MEDS: ACETAMINOPHEN/CODEINE ELIX 120 MG/12 MG/5 ML CUP PO PRN (19:58)
[2017-10-03] VITALS (16 sets, daily range): BP systolic 98–142; BP diastolic 61–72; PULSE 97–114; RESP 18–30; TEMP 98.5–99; O2SAT 92–97
[2017-10-03] MEDS: diphenhydrAMINE HCL 50 MG/ML VIAL IM PRN (01:30)
[2017-10-03] MEDS: HEPARIN SODIUM - SQ 10,000 UNITS/ML VIAL SQ SCH ×2 (03:22→15:42)
[2017-10-03] MEDS: LEVOTHYROXINE SODIUM 50 MCG TAB PO SCH (06:21)
[2017-10-03] MEDS: METOCLOPRAMIDE HCL 10 MG/2 ML VIAL IV PUSH SCH ×3 (06:21→21:00)
[2017-10-03] MEDS: ARTIFICIAL TEARS OPTH SOLN 15 ML BTL EACH EYE SCH ×3 (06:21→21:00)
--- NOTE | 2017-10-03 07:11 | HHI.PR ---
Subjective Remarks POD#26 s/p robotic ascending colectomy/POD#22 exploratory lap with diverting ileostomy Intubated, alert, oriented Objective Vital Signs Date Time Temp Pulse Resp B/P (MAP) Pulse Ox O2 Delivery O2 Flow Rate FiO2 10/03/17 06:00 103 10/03/17 04:00 103 10/03/17 04:00 98.7 103 25 142/71 (94) 93 10/03/17 02:00 101 10/03/17 00:00 102 10/03/17 00:00 98.7 102 23 115/65 (82) 96 10/02/17 22:00 98 10/02/17 21:51 96 Trach Collar 5.00 21 10/02/17 20:00 100 10/02/17 20:00 98.6 100 24 117/57 (77) 94 10/02/17 19:00 94 Room Air 2.00 21 10/02/17 16:00 98.1 102 25 110/64 (79) 93 10/02/17 12:00 98.4 96 23 121/62 (81) 96 10/02/17 12:00 112 10/02/17 10:53 98.4 99 24 120/61 96 10/02/17 10:00 112 10/02/17 09:57 98.1 108 27 125/65 96 10/02/17 09:35 98.6 108 27 117/66 96 10/02/17 08:00 112 10/02/17 08:00 98.6 103 24 120/63 (82) 96 10/02/17 07:54 93 I/O 10/02/17 10/02/17 10/02/17 10/03/17 10/03/17 10/03/17 07:00 15:00 23:00 07:00 15:00 23:00 Intake Total 680 ml 600 ml 500 ml 832 ml Output Total 600 ml 430 ml 635 ml Balance 80 ml 600 ml 70 ml 197 ml Intake Oral 120 ml 250 ml IV Total 200 ml Tube Feeding 360 ml 0 ml 632 ml Packed Cells 400 ml Blood Product IV Normal Saline Flush 200 ml Other 200 ml 50 ml 200 ml Output Urine Total 30 ml 150 ml 100 ml Stool Total 550 ml 200 ml 450 ml Drainage Total 20 ml 80 ml 85 ml Result Diagram: 10/02/17 0554 10/02/17 0554 Objective Remarks Abdomen soft, nondistended ileostomy pink, thicker output midline wound granulation tissue starting, debrided scant amount, slight ileostomy output in wound LUQ wound, just dressed by nurse RLQ port site - redressed, moderate brownish drainage BRANDEN - applications architect in color, decreased amount Assessment and Plan Assessment and Plan transverse colon polyp/sb enterotomy 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 ID - wound vac,LUQ/RLQ wounds wet-dry Heme - 1 unit PRBC today, 1 unit tomorrow with dialysis Continue aggressive PT Improving Ivory Mcclellan MD Oct 03, 2017 07:11
[2017-10-03 07:29] LABS: ALBUMIN 1.8 GM/DL (3.4-5.0); BICARBONATE 21.7 MEQ/L (21.0-32.0); CALCIUM 8.1 MG/DL (8.5-10.1); CREATININE 8.68 MG/DL (0.60-1.30); PHOSPHORUS 8.3 MG/DL (2.5-4.9)
[2017-10-03] MEDS: PANTOPRAZOLE SODIUM 40 MG VIAL IVP SCH (08:42)
[2017-10-03] MEDS: CALCIUM ACETATE 667 MG CAP PEG SCH ×3 (08:43→18:15)
[2017-10-03] MEDS: CHOLECALCIFEROL (VIT D3) LIQ 400 UNITS/ML 50 ML BOTTLE PO SCH (08:43)
[2017-10-03] MEDS: CARVEDILOL 3.125 MG TAB PO SCH ×2 (08:43→20:56)
[2017-10-03] MEDS: amLODIPine BESYLATE 5 MG TAB PO SCH (08:43)
--- NOTE | 2017-10-03 11:40 | HHI.NPPN ---
Subjective General Problems: Anemia, Edema Renal Failure: Acute Interval History His urine output has increased. Being prepared for dialysis. Repeat CBC pending , to be transfused today. Additional Remarks . (Helena Malave) Review of Systems Respiratory Respiratory Remarks Denies SOB (Helena Malave) Gastrointestinal GI Remarks Denies Abdominal pain (Helena Malave) Musculoskeletal MS Remarks back pain (Helena Malave) Objective Data Data 10/03/17 10/04/17 19:00 07:00 Intake Total 20 ml Balance 20 ml Blood Product IV Normal Saline Flush 20 ml Vital Signs Date Time Temp Pulse Resp B/P (MAP) Pulse Ox O2 Delivery O2 Flow Rate FiO2 10/03/17 11:10 98.6 107 19 137/66 97 10/03/17 06:00 103 10/03/17 04:00 103 10/03/17 04:00 98.7 103 25 142/71 (94) 93 10/03/17 02:00 101 10/03/17 00:00 102 10/03/17 00:00 98.7 102 23 115/65 (82) 96 10/02/17 22:00 98 10/02/17 21:51 96 Trach Collar 5.00 21 10/02/17 20:00 100 10/02/17 20:00 98.6 100 24 117/57 (77) 94 10/02/17 19:00 94 Room Air 2.00 21 10/02/17 16:00 98.1 102 25 110/64 (79) 93 10/02/17 12:00 98.4 96 23 121/62 (81) 96 10/02/17 12:00 112 (Helena Malave) -: 10/02/17 0554 10/03/17 0529 Imaging Last 72 hours Impressions Catheter Placement X-Ray 10/02/17 0800 Signed Impressions: Service Date/Time: Monday, October 02, 2017 13:33 - CONCLUSION: Uncomplicated PermaCath placement as above. Andrés Cannon Jr., MD Tubes & Lines: Perma-Cath, Canela Tubes & Lines Comment TLC right IJ ileostomy RLQ BRANDEN drains x 2 abd (Helena Malave) Physical Exam General Appearance: Well Developed, Comfortable Appearance Remarks trach, not on vent, not in distress (Helena Malave) Eyes Eye Exam: Pupils Equal, Pupils Reactive (Helena Malave) Throat Throat Exam: Oral Mucosa [place] & Moist Throat Remarks trach (Helena Malave) Neck Neck Exam: Neck Supple Neck Remarks trach capped (Helena Malave) Pulmonary Resp Exam: Breath Sounds Equal, No Distress, Decreased Bases (Helena Malave) Cardiology CV Exam: Regular, Normal Sinus Rhythm (Helena Malave) Gastrointestinal/Abdomen GI Exam: Soft, Positive Bowel Movement, Distended, Bowel Sounds Hypoactive GI Remarks abd binder in place, BRANDEN drain in place x2 ileostomy, stoma is pink (Helena Malave) Genitourinary Remarks oliguric, urine output may be increasing (Helena Malave) Musculoskeletal MS Exam: Joints Intact, Good Strength, Unable to Ambulate (Helena Malave) Integumentary Skin Exam: Warm, Dry, Intact Skin Remarks midabdominal incision (Helena Malave) Extremeties Extremities Exam: Pedal Pulses Palpable, Moderate Edema (Helena Malave) Neurologic Neuro Exam: Alert, Awake (Helena Malave) Psychiatric Psych Exam: Appropriate Responses (Helena Malave) VTE Prophylaxis Device: SCDs (Helena Malave) Assessment/Plan Discussed Condition With: Patient Assessment Summary: JOSEF/Acute Renal Failure, Acute Tubular Necrosis Electrolyte Assessment: Hypocalcemia Problem List: (1) JOSEF (acute kidney injury) ICD Codes: N17.9 - Acute kidney failure, unspecified Plan: His renal function is normal at baseline Oliguric renal failure, ATN, secondary to sepsis On CRRT from 09/11-09/12; Intermittent HD started 09/13 He has been hypercatabolic, requiring 4 hours dialysis treatments MWF Today will have HD on a 3K, 350 BFR, goal 1L s/p Permcath placement 10/02 Repeat labs daily Avoid nephrotoxic agents Monitor urine output, await renal recovery. HD MWF as needed. On calcium acetate with tube feeding for hyperphosphatemia D/W patient (2) S/P partial colectomy ICD Codes: Z90.49 - Acquired absence of other specified parts of digestive tract Plan: He developed small bowel perforation after robotic surgery, s/p emergent ex lap with I&D 4/3 Management per surgery and CCM has ileostomy that is draining Continue supportive care for sepsis and renal failure On tube feed , rate increased. Needs aggressive PT/OT (3) Sepsis ICD Codes: A41.9 - Sepsis, unspecified organism Plan: On Levaquin. ID is managing. (4) Hypocalcemia ICD Codes: E83.51 - Hypocalcemia Plan: On liquid vitamin D for deficiency (5) Anemia ICD Codes: D64.9 - Anemia, unspecified Plan: Repeat CBC, one unit given yesterday, another ordered for today. (Helena Malave) Plan patient was seen and examined on 10/03/17. Agree with above assessment and plan. Some improvement in urine output. Monitor for signs of renal recovery. (Nish Zhu MD) Helena Malave Oct 03, 2017 11:40 Nish Zhu MD Oct 04, 2017 14:32
[2017-10-03] MEDS: ACETAMINOPHEN/CODEINE ELIX 120 MG/12 MG/5 ML CUP PO PRN ×2 (11:59→18:16)
--- NOTE | 2017-10-03 13:13 | PD.WCN.NOT ---
Wound Consult Description: Midline incision Communicated with: ANDREZ Kothari Recommendation: Midline incision: Wound VAC changes using medium foam dressing. Every M-W-F dressing changes with settings @125mmHg low continuous suction. Maxorb Extra AG over saima superiorly and distally to wound bed. Ileostomy: Change ileostomy pouching system using 1 3/4" wafer and pouch with every VAC change and PRN for leaking. Lightly packing mucocutaneous junction separation using Maxorb Extra AG from 7- 11 and 1-4 o'clock. Empty pouch when 1/3-1/2 full. Left upper abdomen: Cleanse with NS and gauze Wet to dry dressing as ordered by Dr Mcclellan BID Cover with bordered gauze Right lower abdomen: Wound with wicking gauze change BID Change small [place] wound renewals manager pouch as needed Additional Information: Patient seen on for ostomy assessment and wound VAC change today with ASIA Gutierrez assisting. Neg Pressure Wound Therapy Wound Location Wound Location: Midline incision Wound Description Length: 16.5cm Width: 4cm Depth: 4.5cm Undermining: ~1cm @12o'clock underneath saima Wound bed appearance: ~40% red granulation tissue ~40% yellow adipose tissue ~20% yellow adherent moist adherent necrotic tissue in wound base Moist wound bed with scant active thin clear yellow drainage noted superiorly within wound Wound base is partially obscured with yellow adherent tissue with ~3 sutures visualized Wound margins are open from 10'oclock to 8 o'clock with soft black eschar noted at 9 o'clock measuring ~1.5cm x 2cm x 0cm. Settings Suction: 125 mmHg, Continuous Intensity: Low Other Information: Windowpaned Foam type: Black Number of pieces: 1 Ostomy Type: Ileostomy Surgeon: Ivory Mcclellan MD Date of Surgery: Sep 11, 2017 Additional information Ileostomy mucocutaneous separation was cleansed with NS and gauze and repacked using Maxorb Extra AG with new appliance placed over wound VAC drape medially. Stoma is functioning from lumen noted @ 12 o'clock. Stoma is sutured to the peristomal skin at 12 o'clock with mucocutaneous separation from 1-4o'clock and from 7-11 o'clock. Marie Schroeder [facility] Oct 03, 2017 13:13
[2017-10-03 17:28] LABS: AUTOMATED NEUTROPHIL # 4.2 TH/MM3 (1.8-7.7); BASOPHIL % 0.6 % (0.0-2.0); EOSINOPHIL # 0.4 TH/MM3 (0-0.4); EOSINOPHIL % 6.7 % (0.0-4.0); HEMATOCRIT 24.9 % (39.0-51.0); HEMOGLOBIN 8.9 GM/DL (13.0-17.0); LYMPH % 14.9 % (9.0-44.0); MEAN CELL VOLUME 86.7 FL (80.0-100.0); MEAN CORPUSCULAR HEMOGLOBIN 31.1 PG (27.0-34.0); MEAN CORPUSCULAR HGB CONC 35.8 % (32.0-36.0); MEAN PLATELET VOLUME 8.3 FL (7.0-11.0); MONO % 13.6 % (0.0-8.0); MONOCYTE # 0.9 TH/MM3 (0-0.9); NEUT % 64.2 % (16.0-70.0); PLATELET COUNT 118 TH/MM3 (150-450); RED BLOOD COUNT 2.87 MIL/MM3 (4.50-5.90); WHITE BLOOD COUNT 6.5 TH/MM3 (4.0-11.0)
--- NOTE | 2017-10-03 19:04 | HHI.PR ---
Subjective Remarks ALERT NO DISTRESS EXCESS MUCOID SECREATION Objective Vital Signs Date Time Temp Pulse Resp B/P (MAP) Pulse Ox O2 Delivery O2 Flow Rate FiO2 10/03/17 18:00 103 10/03/17 16:00 99.0 114 18 122/72 (89) 93 10/03/17 16:00 110 10/03/17 14:00 112 10/03/17 12:30 99.0 103 22 135/67 96 10/03/17 12:00 98.6 103 23 142/63 (89) 93 10/03/17 12:00 104 10/03/17 11:10 98.6 107 19 137/66 97 10/03/17 10:00 104 10/03/17 08:00 98.6 108 29 124/62 (82) 93 10/03/17 08:00 110 10/03/17 07:40 95 Trach Collar 5.00 21 10/03/17 07:00 96 Room Air 10/03/17 06:00 103 10/03/17 04:00 103 10/03/17 04:00 98.7 103 25 142/71 (94) 93 10/03/17 02:00 101 10/03/17 00:00 102 10/03/17 00:00 98.7 102 23 115/65 (82) 96 10/02/17 22:00 98 10/02/17 21:51 96 Trach Collar 5.00 21 10/02/17 20:00 100 10/02/17 20:00 98.6 100 24 117/57 (77) 94 I/O 10/02/17 10/02/17 10/02/17 10/03/17 10/03/17 10/03/17 07:00 15:00 23:00 07:00 15:00 23:00 Intake Total 680 ml 600 ml 500 ml 832 ml 420 ml 480 ml Output Total 600 ml 430 ml 635 ml 290 ml Balance 80 ml 600 ml 70 ml 197 ml 420 ml 190 ml Intake Oral 120 ml 250 ml 240 ml IV Total 200 ml Tube Feeding 360 ml 0 ml 632 ml Packed Cells 400 ml 400 ml Blood Product IV Normal Saline Flush 200 ml 20 ml Other 200 ml 50 ml 200 ml 240 ml Output Urine Total 30 ml 150 ml 100 ml 100 ml Stool Total 550 ml 200 ml 450 ml 120 ml Drainage Total 20 ml 80 ml 85 ml 70 ml Result Diagram: 10/03/17 1705 10/03/17 0529 Objective Remarks GENERAL: SKIN: Warm and dry. HEAD: Atraumatic. Normocephalic. EYES: Pupils equal and round. No scleral icterus. No injection or drainage. ENT: No nasal bleeding or discharge. Mucous membranes pink and moist. NECK: Trachea midline. No JVD. CARDIOVASCULAR: Regular rate and rhythm. RESPIRATORY: No accessory muscle use. Clear to auscultation. Breath sounds equal bilaterally. TRACHEOSTOMY IN PLACE GASTROINTESTINAL: Abdomen soft, non-tender, nondistended. Hepatic and splenic margins not palpable. MUSCULOSKELETAL: Extremities without clubbing, cyanosis, or edema. No obvious deformities. NEUROLOGICAL: Awake and alert. No obvious cranial nerve deficits. Motor grossly within normal limits. Five out of 5 muscle strength in the arms and legs. Normal speech. PSYCHIATRIC: Appropriate mood and affect; insight and judgment normal. Assessment and Plan Assessment and Plan RESPIRATORY FAILURE S/P TRACHEOSTOMY S/P ABDOMINAL SURGURY ANEMIA PLAN O2 ANTIBX PULM TOILET CHANGE TRACH TO CUFFLESS Ernie Klein MD Oct 03, 2017 19:04
--- NOTE | 2017-10-03 23:32 | HHI.PR ---
Subjective Remarks Follow-up following respiratory failure, anemia. Patient says he is feeling all right. No signs of bleeding. Objective Vital Signs Date Time Temp Pulse Resp B/P (MAP) Pulse Ox O2 Delivery O2 Flow Rate FiO2 10/03/17 22:00 97 10/03/17 20:00 98.5 112 30 98/61 (73) 92 10/03/17 20:00 112 10/03/17 19:05 92 Trach Collar 21 10/03/17 19:00 90 Room Air Trach Collar 10/03/17 18:00 103 10/03/17 16:00 99.0 114 18 122/72 (89) 93 10/03/17 16:00 110 10/03/17 14:00 112 10/03/17 12:30 99.0 103 22 135/67 96 10/03/17 12:00 98.6 103 23 142/63 (89) 93 10/03/17 12:00 104 10/03/17 11:10 98.6 107 19 137/66 97 10/03/17 10:00 104 10/03/17 08:00 98.6 108 29 124/62 (82) 93 10/03/17 08:00 110 10/03/17 07:40 95 Trach Collar 5.00 21 10/03/17 07:00 96 Room Air 10/03/17 06:00 103 10/03/17 04:00 103 10/03/17 04:00 98.7 103 25 142/71 (94) 93 10/03/17 02:00 101 10/03/17 00:00 102 10/03/17 00:00 98.7 102 23 115/65 (82) 96 I/O 10/03/17 10/03/17 10/03/17 10/04/17 10/04/17 10/04/17 07:00 15:00 23:00 07:00 15:00 23:00 Intake Total 832 ml 420 ml 480 ml Output Total 635 ml 150 ml 290 ml Balance 197 ml 270 ml 190 ml Intake Oral 240 ml Tube Feeding 632 ml Packed Cells 400 ml Blood Product IV Normal Saline Flush 20 ml Other 200 ml 240 ml Output Urine Total 100 ml 100 ml Stool Total 450 ml 150 ml 120 ml Drainage Total 85 ml 70 ml Result Diagram: 10/03/17 1705 10/03/17 7429 Objective Remarks GENERAL: patient sitting up in bed. Appears comfortable. SKIN: Warm and dry. HEAD: Normocephalic. EYES: No scleral icterus. No injection or drainage. NECK: Supple, trachea midline. No JVD. tracheostomy midline. No surrounding erythema. CARDIOVASCULAR: Regular rate and rhythm without murmurs, gallops, or rubs. RESPIRATORY: Breath sounds equal bilaterally. No accessory muscle use. GASTROINTESTINAL: Abdomen soft, non-tender, nondistended. MUSCULOSKELETAL: No cyanosis, or edema. BACK: Nontender without obvious deformity. No CVA tenderness. A/P Assessment and Plan // Severe septic shock: Secondary to peritonitis. Resolved. Off pressors. Blood culture from 09/13/17 growing Enterobacter, pansensitive. = Off Levaquin. No signs of infection currently. Continue to monitor //Small bowel enterotomy with leakage of small bowel contents, peritonitis: Status post ex lap, diverting ileostomy. Management per colorectal surgery. Wound VAC in place. 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 Discussed with Dr. Mcclellan at bedside. = Appreciate surgery assistance. //Toxic metabolic encephalopathy: Mental status is significantly improved. Patient is alert and oriented. 4. Acute hypoxemic respiratory failure: Resolved. Appreciate pulmonology recommendations. Tracheostomy being downsized by pulmonology. On oxygen per nasal cannula. // Acute renal failure: Appreciate nephrology recommendations. Continue hemodialysis. //Atrial fibrillation with RVR: Rate control improved. Increased dose of carvedilol. Stopped metoprolol. Off amiodarone drip. //Hyperglycemia: Improved. Monitor Accu-Cheks and cover with sliding scale insulin. //History of gout: Allopurinol on hold. // Hypothyroidism: Continue Synthroid. //DVT prophylaxis: SCDs, MANDY hose, heparin. //GI prophylaxis: Protonix. //FEN: Patient has NG tube and is receiving tube feeds. He has been trying to take small amounts of food and drink by mouth, but is hesitant to do so. //Hypertension: Continue amlodipine, carvedilol. Metoprolol discontinued. Clonidine as needed. //Anemia: Transfuse 1 unit PRBCs today and 1 unit tomorrow during dialysis, spacing out transfusions due to risk of fluid overload. = 10/03. Hemoglobin 8.9 after 2 units of PRBCs. Continue to monitor. Discharge Planning PT recommends rehabilitation Joo Monet MD Oct 03, 2017 23:32
[2017-10-04] VITALS (15 sets, daily range): BP systolic 109–135; BP diastolic 43–67; PULSE 92–104; RESP 16–36; TEMP 97.7–99.5; O2SAT 93–95
[2017-10-04] MEDS: HEPARIN SODIUM - SQ 10,000 UNITS/ML VIAL SQ SCH ×2 (03:00→14:00)
[2017-10-04] MEDS: RESP: ALBUTEROL 2.5 MG/3 ML NEB (PRN) NEB ×2 (03:38→09:22)
[2017-10-04 05:48] LABS: AUTOMATED NEUTROPHIL # 4.1 TH/MM3 (1.8-7.7); BASOPHIL # 0.1 TH/MM3 (0-0.2); BASOPHIL % 0.8 % (0.0-2.0); EOSINOPHIL # 0.4 TH/MM3 (0-0.4); EOSINOPHIL % 6.3 % (0.0-4.0); HEMOGLOBIN 9.1 GM/DL (13.0-17.0); LYMPH % 13.8 % (9.0-44.0); LYMPHOCYTE # 0.9 TH/MM3 (1.0-4.8); MEAN CELL VOLUME 88.5 FL (80.0-100.0); MEAN CORPUSCULAR HEMOGLOBIN 31.1 PG (27.0-34.0); MEAN CORPUSCULAR HGB CONC 35.1 % (32.0-36.0); MEAN PLATELET VOLUME 8.2 FL (7.0-11.0); MONO % 14.6 % (0.0-8.0); MONOCYTE # 0.9 TH/MM3 (0-0.9); NEUT % 64.5 % (16.0-70.0); PLATELET COUNT 128 TH/MM3 (150-450); RED BLOOD COUNT 2.94 MIL/MM3 (4.50-5.90); RED CELL DISTRIBUTION WIDTH 13.7 % (11.6-17.2); WHITE BLOOD COUNT 6.3 TH/MM3 (4.0-11.0)
[2017-10-04] MEDS: LEVOTHYROXINE SODIUM 50 MCG TAB PO SCH (05:55)
[2017-10-04] MEDS: ARTIFICIAL TEARS OPTH SOLN 15 ML BTL EACH EYE SCH ×3 (05:56→22:00)
[2017-10-04] MEDS: METOCLOPRAMIDE HCL 10 MG/2 ML VIAL IV PUSH SCH ×3 (05:56→22:02)
[2017-10-04 06:08] LABS: ALBUMIN 1.7 GM/DL (3.4-5.0); BICARBONATE 27.6 MEQ/L (21.0-32.0); CALCIUM 7.7 MG/DL (8.5-10.1); CREATININE 5.38 MG/DL (0.60-1.30); PHOSPHORUS 5.6 MG/DL (2.5-4.9)
--- NOTE | 2017-10-04 08:48 | HHI.PR ---
Subjective Remarks ALERT NO DISTRESS Objective Vital Signs Date Time Temp Pulse Resp B/P (MAP) Pulse Ox O2 Delivery O2 Flow Rate FiO2 10/04/17 07:27 95 Trach Collar 21 10/04/17 06:00 100 10/04/17 04:00 97 10/04/17 04:00 98.5 97 28 128/66 (86) 93 10/04/17 02:00 102 10/04/17 00:00 94 10/04/17 00:00 98.6 94 23 109/56 (73) 94 10/03/17 22:00 97 10/03/17 20:00 98.5 112 30 98/61 (73) 92 10/03/17 20:00 112 10/03/17 19:05 92 Trach Collar 21 10/03/17 19:00 90 Room Air Trach Collar 10/03/17 18:00 103 10/03/17 16:00 99.0 114 18 122/72 (89) 93 10/03/17 16:00 110 10/03/17 14:00 112 10/03/17 12:30 99.0 103 22 135/67 96 10/03/17 12:00 98.6 103 23 142/63 (89) 93 10/03/17 12:00 104 10/03/17 11:10 98.6 107 19 137/66 97 10/03/17 10:00 104 I/O 10/03/17 10/03/17 10/03/17 10/04/17 10/04/17 10/04/17 07:00 15:00 23:00 07:00 15:00 23:00 Intake Total 832 ml 420 ml 480 ml 368 ml Output Total 635 ml 150 ml 290 ml 570 ml Balance 197 ml 270 ml 190 ml -202 ml Intake Oral 240 ml Tube Feeding 632 ml 108 ml Packed Cells 400 ml Blood Product IV Normal Saline Flush 20 ml Other 200 ml 240 ml 260 ml Output Urine Total 100 ml 100 ml 100 ml Stool Total 450 ml 150 ml 120 ml 425 ml Drainage Total 85 ml 70 ml 45 ml Result Diagram: 10/04/1752410/04/17524 Objective Remarks GENERAL: SKIN: Warm and dry. HEAD: Atraumatic. Normocephalic. EYES: Pupils equal and round. No scleral icterus. No injection or drainage. ENT: No nasal bleeding or discharge. Mucous membranes pink and moist. NECK: Trachea midline. No JVD. CARDIOVASCULAR: Regular rate and rhythm. RESPIRATORY: No accessory muscle use. Clear to auscultation. Breath sounds equal bilaterally. TRACHEOSTOMY IN PLACE GASTROINTESTINAL: Abdomen soft, non-tender, nondistended. Hepatic and splenic margins not palpable. MUSCULOSKELETAL: Extremities without clubbing, cyanosis, or edema. No obvious deformities. NEUROLOGICAL: Awake and alert. No obvious cranial nerve deficits. Motor grossly within normal limits. Five out of 5 muscle strength in the arms and legs. Normal speech. PSYCHIATRIC: Appropriate mood and affect; insight and judgment normal. Assessment and Plan Assessment and Plan RESPIRATORY FAILURE S/P TRACHEOSTOMY S/P ABDOMINAL SURGURY ANEMIA PLAN O2 ANTIBX PULM TOILET INCREASE ACTIVITY Ernie Klein MD Oct 04, 2017 08:48
[2017-10-04] MEDS: amLODIPine BESYLATE 5 MG TAB PO SCH (09:00)
--- NOTE | 2017-10-04 10:15 | HHI.NPPN ---
Subjective General Problems: Anemia, Edema Renal Failure: Acute Interval History Trach downsized again today. He is slightly fatigued. Afebrile. Dialyzed yesterday. Additional Remarks . (Helena Malave) Review of Systems General Constitutional: Fatigue (Helena Malave) Respiratory Respiratory Remarks Denies SOB (Helena Malave) Gastrointestinal GI Remarks Denies Abdominal pain (Helena Malave) Musculoskeletal MS Remarks back pain (Helena Malave) Objective Data Data Vital Signs Date Time Temp Pulse Resp B/P (MAP) Pulse Ox O2 Delivery O2 Flow Rate FiO2 10/04/17 07:27 95 Trach Collar 21 10/04/17 06:00 100 10/04/17 04:00 97 10/04/17 04:00 98.5 97 28 128/66 (86) 93 10/04/17 02:00 102 10/04/17 00:00 94 10/04/17 00:00 98.6 94 23 109/56 (73) 94 10/03/17 22:00 97 10/03/17 20:00 98.5 112 30 98/61 (73) 92 10/03/17 20:00 112 10/03/17 19:05 92 Trach Collar 21 10/03/17 19:00 90 Room Air Trach Collar 10/03/17 18:00 103 10/03/17 16:00 99.0 114 18 122/72 (89) 93 10/03/17 16:00 110 10/03/17 14:00 112 10/03/17 12:30 99.0 103 22 135/67 96 10/03/17 12:00 98.6 103 23 142/63 (89) 93 10/03/17 12:00 104 10/03/17 11:10 98.6 107 19 137/66 97 (Helena Malave) -: 10/04/17 0525 10/04/17 0525 Imaging Last 72 hours Impressions Catheter Placement X-Ray 10/02/17 0800 Signed Impressions: Service Date/Time: Monday, October 02, 2017 13:33 - CONCLUSION: Uncomplicated PermaCath placement as above. Andrés Cannon Jr., MD Tubes & Lines: Perma-Cath, Canela Tubes & Lines Comment TLC right IJ ileostomy RLQ BRANDEN drains x 2 abd NG Left nare (Helena Malave) Physical Exam General Appearance: Well Developed, Comfortable Appearance Remarks trach, not on vent, not in distress (Helena Malave) Eyes Eye Exam: Pupils Equal, Pupils Reactive (Helena Malave) Ears & Nose Ears & Nose Remarks L nare NG tube (Helena Malave) Throat Throat Exam: Oral Mucosa [place] & Moist Throat Remarks trach (Helena Malave) Neck Neck Exam: Neck Supple Neck Remarks trach capped (Helena Malave) Pulmonary Resp Exam: Breath Sounds Equal, No Distress, Decreased Bases (Helena Malave) Cardiology CV Exam: Regular, Normal Sinus Rhythm (Helena Malave) Gastrointestinal/Abdomen GI Exam: Soft, Positive Bowel Movement, Distended, Bowel Sounds Hypoactive GI Remarks abd binder in place, BRANDEN drain in place x2 ileostomy, stoma is pink (Helena Malave) Genitourinary Remarks oliguric, urine output may be increasing (Helena Malave) Musculoskeletal MS Exam: Joints Intact, Good Strength, Unable to Ambulate (Helena Malave) Integumentary Skin Exam: Warm, Dry, Intact Skin Remarks midabdominal incision (Helena Malave) Extremeties Extremities Exam: Pedal Pulses Palpable, Moderate Edema (Helena Malave) Neurologic Neuro Exam: Alert, Awake (Helena Malave) Psychiatric Psych Exam: Appropriate Responses (Helena Malave) VTE Prophylaxis Device: SCDs (Helena Malave) Assessment/Plan Discussed Condition With: Patient Assessment Summary: JOSEF/Acute Renal Failure, Acute Tubular Necrosis Electrolyte Assessment: Hypocalcemia Problem List: (1) JOSEF (acute kidney injury) ICD Codes: N17.9 - Acute kidney failure, unspecified Plan: His renal function is normal at baseline Oliguric renal failure, ATN, secondary to sepsis On CRRT from 09/11-09/12; Intermittent HD started 09/13 He is hypercatabolic, requiring 4 hours dialysis treatments MWF Yesterday 1L fluid removal he is oliguric, monitor output, await renal recovery s/p Permcath placement 10/02 Repeat labs daily HD tomorrow Avoid nephrotoxic agents On calcium acetate with tube feeding for hyperphosphatemia D/W patient (2) S/P partial colectomy ICD Codes: Z90.49 - Acquired absence of other specified parts of digestive tract Plan: He developed small bowel perforation after robotic surgery, s/p emergent ex lap with I&D 09/11 Management per surgery and CCM has ileostomy that is draining Continue supportive care for sepsis and renal failure On tube feed at night supplemental nutrition Needs aggressive PT/OT (3) Sepsis ICD Codes: A41.9 - Sepsis, unspecified organism Plan: No longer on antibiotics, monitor clinically ID is following (4) Hypocalcemia ICD Codes: E83.51 - Hypocalcemia Plan: On liquid vitamin D for deficiency (5) Anemia ICD Codes: D64.9 - Anemia, unspecified Plan: Hb improved, transfused yesterday. No acute bleeding, monitor for recurrence (Helena Malave) Plan patient was seen and examined. Agree with above assessment and plan. (Nish Zhu MD) Helena Malave Oct 04, 2017 10:15 Nish Zhu MD Oct 04, 2017 14:50
[2017-10-04] MEDS: PANTOPRAZOLE SODIUM 40 MG VIAL IVP SCH (10:24)
[2017-10-04] MEDS: CARVEDILOL 3.125 MG TAB PO SCH ×2 (10:24→22:02)
[2017-10-04] MEDS: CHOLECALCIFEROL (VIT D3) LIQ 400 UNITS/ML 50 ML BOTTLE PO SCH (10:24)
[2017-10-04] MEDS: CALCIUM ACETATE 667 MG CAP PEG SCH ×3 (10:24→18:04)
[2017-10-04] MEDS: HYDROmorphone HCL PF 0.5 MG/0.5 ML SYRINGE IV PRN ×2 (14:39→23:07)
--- NOTE | 2017-10-04 17:58 | HHI.PR ---
Subjective Remarks POD#27 s/p robotic ascending colectomy/POD#23 exploratory lap with diverting ileostomy Intubated, alert, oriented Objective Vital Signs Date Time Temp Pulse Resp B/P (MAP) Pulse Ox O2 Delivery O2 Flow Rate FiO2 10/04/17 14:00 103 10/04/17 12:30 99 10/04/17 12:00 98.1 99 20 116/58 (77) 95 10/04/17 10:00 92 10/04/17 08:00 103 10/04/17 08:00 99.5 103 36 135/67 (89) 94 10/04/17 07:27 95 Trach Collar 21 10/04/17 07:00 96 Room Air 10/04/17 06:00 100 10/04/17 04:00 97 10/04/17 04:00 98.5 97 28 128/66 (86) 93 10/04/17 02:00 102 10/04/17 00:00 94 10/04/17 00:00 98.6 94 23 109/56 (73) 94 10/03/17 22:00 97 10/03/17 20:00 98.5 112 30 98/61 (73) 92 10/03/17 20:00 112 10/03/17 19:05 92 Trach Collar 21 10/03/17 19:00 90 Room Air Trach Collar 10/03/17 18:00 103 I/O 10/03/17 10/03/17 10/03/17 10/04/17 10/04/17 10/04/17 07:00 15:00 23:00 07:00 15:00 23:00 Intake Total 832 ml 420 ml 480 ml 368 ml Output Total 635 ml 150 ml 290 ml 570 ml Balance 197 ml 270 ml 190 ml -202 ml Intake Oral 240 ml Tube Feeding 632 ml 108 ml Packed Cells 400 ml Blood Product IV Normal Saline Flush 20 ml Other 200 ml 240 ml 260 ml Output Urine Total 100 ml 100 ml 100 ml Stool Total 450 ml 150 ml 120 ml 425 ml Drainage Total 85 ml 70 ml 45 ml Result Diagram: 10/04/1752410/04/17524 Objective Remarks Abdomen soft, nondistended ileostomy pink, thicker output midline wound vac in place, edges clean LUQ dressing clean RLQ port site - thinner brownish aguilar drainage BRANDEN - roentgenology teacher in color, decreased amount Assessment and Plan Assessment and Plan transverse colon polyp/sb enterotomy NEURO - responsive, 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
[2017-10-04] MEDS: ONDANSETRON HCL 4 MG/2 ML VIAL IV PUSH PRN (23:07)
--- NOTE | 2017-10-04 23:58 | HHI.PR ---
Subjective Remarks Patient seen this morning around noon. Says he is feeling arrived. Denies any chest pain or shortness of breath. Objective Vital Signs Date Time Temp Pulse Resp B/P (MAP) Pulse Ox O2 Delivery O2 Flow Rate FiO2 10/04/17 22:39 98 10/04/17 22:31 93 Room Air 10/04/17 20:00 98.0 97 16 125/64 (84) 93 10/04/17 19:39 94 10/04/17 18:00 104 10/04/17 16:00 97.7 103 26 112/43 (66) 95 10/04/17 16:00 103 10/04/17 14:00 103 10/04/17 12:30 99 10/04/17 12:00 98.1 99 20 116/58 (77) 95 10/04/17 10:00 92 10/04/17 08:00 103 10/04/17 08:00 99.5 103 36 135/67 (89) 94 10/04/17 07:27 95 Trach Collar 21 10/04/17 07:00 96 Room Air 10/04/17 06:00 100 10/04/17 04:00 97 10/04/17 04:00 98.5 97 28 128/66 (86) 93 10/04/17 02:00 102 10/04/17 00:00 94 10/04/17 00:00 98.6 94 23 109/56 (73) 94 I/O 10/04/17 10/04/17 10/04/17 10/05/17 10/05/17 10/05/17 07:00 15:00 23:00 07:00 15:00 23:00 Intake Total 368 ml 420 ml Output Total 570 ml 565 ml Balance -202 ml -145 ml Intake Oral 240 ml Tube Feeding 108 ml Other 260 ml 180 ml Output Urine Total 100 ml 200 ml Stool Total 425 ml 300 ml Drainage Total 45 ml 65 ml Result Diagram: 10/04/1725 10/04/17524 Objective Remarks GENERAL: patient sitting up in bed. Appears comfortable. SKIN: Warm and dry. HEAD: Normocephalic. EYES: No scleral icterus. No injection or drainage. NECK: Supple, trachea midline. No JVD. tracheostomy midline. No surrounding erythema. CARDIOVASCULAR: Regular rate and rhythm without murmurs, gallops, or rubs. RESPIRATORY: Breath sounds equal bilaterally. No accessory muscle use. GASTROINTESTINAL: Abdomen soft, non-tender, nondistended. MUSCULOSKELETAL: No cyanosis, or edema. BACK: Nontender without obvious deformity. No CVA tenderness. A/P Assessment and Plan // Severe septic shock: Secondary to peritonitis. Resolved. Off pressors. Blood culture from 09/13/17 growing Enterobacter, pansensitive. = Off Levaquin. No signs of infection currently. Continue to monitor //Small bowel enterotomy with leakage of small bowel contents, peritonitis: Status post ex lap, diverting ileostomy. Management per colorectal surgery. Wound VAC in place. Pain control with Dilaudid WARD MAID. Discussed with Dr. Mcclellan at bedside. = Appreciate surgery assistance. //Toxic metabolic encephalopathy: Mental status is significantly improved. Patient is alert and oriented. 4. Acute hypoxemic respiratory failure: Resolved. Appreciate pulmonology recommendations. Tracheostomy being downsized by pulmonology. On oxygen per nasal cannula. // Acute renal failure: Appreciate nephrology recommendations. Continue hemodialysis. //Atrial fibrillation with RVR: Rate control improved. Increased dose of carvedilol. Stopped metoprolol. Off amiodarone drip. //Hyperglycemia: Improved. Monitor Accu-Cheks and cover with sliding scale insulin. //History of gout: Allopurinol on hold. // Hypothyroidism: Continue Synthroid. //DVT prophylaxis: SCDs, MANDY hose, heparin. //GI prophylaxis: Protonix. //FEN: Patient has NG tube and is receiving tube feeds. He has been trying to take small amounts of food and drink by mouth, but is hesitant to do so. //Hypertension: Continue amlodipine, carvedilol. Metoprolol discontinued. Clonidine as needed. //Anemia: Transfuse 1 unit PRBCs today and 1 unit tomorrow during dialysis, spacing out transfusions due to risk of fluid overload. = 10/03. Hemoglobin 8.9 after 2 units of PRBCs. Continue to monitor. = 10/04. Hemoglobin stable at 9.1. Hold off on anticoagulation. Discharge Planning PT recommends rehabilitation Joo Monet MD Oct 04, 2017 23:58
[2017-10-05] VITALS (11 sets, daily range): BP systolic 106–124; BP diastolic 56–64; PULSE 90–113; RESP 12–36; TEMP 98–98.6; O2SAT 92–96
[2017-10-05] MEDS: ACETAMINOPHEN/CODEINE ELIX 120 MG/12 MG/5 ML CUP PO PRN ×2 (02:24→15:17)
[2017-10-05] MEDS: HEPARIN SODIUM - SQ 10,000 UNITS/ML VIAL SQ SCH ×2 (03:00→15:18)
[2017-10-05 05:56] LABS: ALBUMIN 1.7 GM/DL (3.4-5.0); BICARBONATE 29.6 MEQ/L (21.0-32.0); CREATININE 6.66 MG/DL (0.60-1.30); PHOSPHORUS 6.7 MG/DL (2.5-4.9)
[2017-10-05] MEDS: METOCLOPRAMIDE HCL 10 MG/2 ML VIAL IV PUSH SCH ×2 (06:00→15:18)
[2017-10-05] MEDS: LEVOTHYROXINE SODIUM 50 MCG TAB PO SCH (06:00)
[2017-10-05] MEDS: ARTIFICIAL TEARS OPTH SOLN 15 ML BTL EACH EYE SCH ×2 (06:00→15:18)
[2017-10-05] MEDS: HYDROmorphone HCL PF 0.5 MG/0.5 ML SYRINGE IV PRN (08:33)
[2017-10-05] MEDS: CALCIUM ACETATE 667 MG CAP PEG SCH ×2 (09:00→15:17)
[2017-10-05] MEDS: amLODIPine BESYLATE 5 MG TAB PO SCH (09:00)
[2017-10-05] MEDS: CARVEDILOL 3.125 MG TAB PO SCH (09:00)
[2017-10-05] MEDS: CHOLECALCIFEROL (VIT D3) LIQ 400 UNITS/ML 50 ML BOTTLE PO SCH (09:00)
[2017-10-05] MEDS: PANTOPRAZOLE SODIUM 40 MG VIAL IVP SCH (09:00)
--- NOTE | 2017-10-05 12:15 | PD.WCN.NOT ---
Wound Consult Description: Midline incision VAC dressing change today 10/05/17 (M-W-F) with settings @ 125mmHg low continuous suction. Ileostomy appliance changed with packing to mucocutaneous junction. Now with LUQ granufoam/trac pad with Y connection to VAC. Communicated with: Dr Eleuterio Kothari, RN Recommendation: Midline incision Y'd with LUQ wound: Wound VAC changes using medium foam dressing. Every -W- dressing changes with settings @125mmHg low continuous suction. Ileostomy: Change ileostomy pouching system using 1 3/4" wafer and pouch with every VAC change and PRN for leaking. Lightly packing mucocutaneous junction separation using Maxorb Extra AG from 7- 11 and 1-4 o'clock. Empty pouch when 1/3-1/2 full. Right lower abdomen: Wound with wicking gauze change BID Change small [place] wound business performance manager pouch as needed for leaks Additional Information: Patient seen earlier this am with Dr Mcclellan for wound VAC dressing change to midline incision with addition of LUQ Y connected to wound VAC. Neg Pressure Wound Therapy Wound Location Wound Location: Midline incision Y connected with LUQ Wound Description Length: 20.5cm now without saima (removed today by Dr Mcclellan) Width: 4cm Depth: 4.5cm Wound bed appearance: ~60% red granulation tissue ~30% yellow adipose tissue ~10% yellow adherent moist adherent necrotic tissue in wound base Moist wound bed with scant active thin clear yellow drainage noted superiorly within wound Wound base is partially obscured with yellow adherent tissue with ~3 sutures visualized Wound margins are open Settings Suction: 125 mmHg, Continuous Intensity: Low Other Information: Windowpaned Foam type: Black Number of pieces: 1 (One piece of coiled black granufoam placed in wound bed over Oil emulsion gauze in wound base covering sutures after bedside debridement ) Additonal Information Dr Mcclellan performed sharps debridement of necrotic tissue within wound bed and @9 o'clock wound margin. Wound was cleansed thoroughly with NS and gauze. Periwound was cleansed and prepped with Cavilon spray prior to window paning with VAC drape. Davion seal was used to form a barrier between the wound margin @ 9 o'clock where ileostomy appliance is to be applied. One piece of foam was placed in wound bed over Oil emulsion (adaptic) to cover and protect sutures. VAC drape was used to secure foam and trac pad was placed over the distal end of the wound bed. Wound Location Wound Location: LUQ Wound Description Wound bed appearance: Measured and visualized by Brenda BETANCOURT not available at this time Periwound appearance: Unremarkable Settings Suction: 125 mmHg, Continuous Intensity: Low Other Information: Windowpaned, Mushroomed Foam type: Black Number of pieces: 1 (One piece of black granufoam placed in wound bed ) Additonal Information Wound cleansed and VAC'd by Brenda BETANCOURT with Y connector placed to attach to wound VAC machine. Ostomy Type: Ileostomy Surgeon: Ivory Mcclellan MD Date of Surgery: Sep 11, 2017 Additional information Ileostomy appliance changed using 1 3/4" moldable wafer and transparent open ended pouch. Mucocutaneous separation noted from 1-4 and 7-10 o'clock which was cleansed with NS and gauze and gently packed with Maxorb Extra AG. Davion seal placed over the top of the packing with new appliance placed over the davion seal. Ileostomy is functioning with dark yellow liquid effluent noted from lumen @12 o'clock with sutures holding red moist stoma in place. Marie Schroeder NIDA Oct 05, 2017 12:15
[2017-10-05] MEDS: GENTAMICIN SULFATE 20 MG/2 ML VIAL OTHER PRN (12:25)
--- NOTE | 2017-10-05 14:00 | HHI.NPPN ---
Subjective General Problems: Anemia, Edema Renal Failure: Acute Interval History Dialyzed today. He has made more urine. He is fatigued. Additional Remarks . (Helena Malave) Review of Systems General Constitutional: Fatigue (Helena Malave) Respiratory Lungs: Cough, Sputum Respiratory Remarks Denies SOB (Helena Malave) Gastrointestinal GI Remarks Denies Abdominal pain (Helnea Malave) Musculoskeletal MS Remarks back pain (Helena Malave) Objective Data Data 10/05/17 10/06/17 19:00 07:00 Output Total 2000 ml Balance -2000 ml Hemodialysis 2000 ml Vital Signs Date Time Temp Pulse Resp B/P (MAP) Pulse Ox O2 Delivery O2 Flow Rate FiO2 10/05/17 12:19 98.2 111 36 118/63 (81) 94 10/05/17 12:18 109 10/05/17 10:00 107 10/05/17 09:40 96 21 10/05/17 08:00 98.2 97 36 124/62 (82) 94 10/05/17 08:00 97 10/05/17 07:00 96 Room Air 10/05/17 06:27 96 10/05/17 04:12 99 25 116/61 (79) 95 10/05/17 04:09 97 10/05/17 02:25 90 10/05/17 02:25 98.0 90 12 106/56 (73) 93 10/04/17 22:39 98 10/04/17 22:31 93 Room Air 10/04/17 20:00 98.0 97 16 125/64 (84) 93 10/04/17 19:39 94 10/04/17 18:00 104 10/04/17 16:00 97.7 103 26 112/43 (66) 95 10/04/17 16:00 103 10/04/17 14:00 103 (Helena Malave) -: 10/04/17 0525 10/05/17 0435 Tubes & Lines: Perma-Cath, [place] Tubes & Lines Comment TLC right IJ ileostomy RLQ BRANDEN drains x 2 abd NG Left nare (Helena Malave) Physical Exam General Appearance: Well Developed, Comfortable Appearance Remarks trach, not on vent, not in distress (Helena Malave) Eyes Eye Exam: Pupils Equal, Pupils Reactive (Helena Malave) Ears & Nose Ears & Nose Remarks L nare NG tube (Helena Malave) Throat Throat Exam: Oral Mucosa [place] & Moist Throat Remarks trach (Helena Malave) Neck Neck Exam: Neck Supple Neck Remarks trach capped (Helena Malave) Pulmonary Resp Exam: Breath Sounds Equal, No Distress, Rhonchi, Sputum, Decreased Bases (Helena Malave) Cardiology CV Exam: Regular, Normal Sinus Rhythm (Helena Malave) Gastrointestinal/Abdomen GI Exam: Soft, Positive Bowel Movement, Distended, Bowel Sounds Hypoactive GI Remarks abd binder in place, BRANDEN drain in place x2 ileostomy, stoma is pink (Helena Malave) Genitourinary Remarks oliguric, urine output may be increasing (Helena Malave) Musculoskeletal MS Exam: Joints Intact, Good Strength, Unable to Ambulate (Helena Malave) Integumentary Skin Exam: Warm, Dry, Intact Skin Remarks midabdominal incision (Helena Malave) Extremeties Extremities Exam: Pedal Pulses Palpable, Moderate Edema (Helena Malave) Neurologic Neuro Exam: Alert, Awake (Helena Malave) Psychiatric Psych Exam: Appropriate Responses (Helena Malave) VTE Prophylaxis Device: SCDs (Helena Malave) Assessment/Plan Discussed Condition With: Patient Assessment Summary: JOSEF/Acute Renal Failure, Acute Tubular Necrosis Electrolyte Assessment: Hypocalcemia Problem List: (1) JOSEF (acute kidney injury) ICD Codes: N17.9 - Acute kidney failure, unspecified Plan: His renal function is normal at baseline Oliguric renal failure, ATN, secondary to sepsis On CRRT from 09/11-09/12; Intermittent HD started 09/13 He is hypercatabolic, requiring 4 hours dialysis treatments MWF 2L UF today he is oliguric, monitor output, await renal recovery; his urine output has imrpoved s/p Permcath placement 10/02 Repeat labs daily Avoid nephrotoxic agents On calcium acetate with tube feeding for hyperphosphatemia D/W patient (2) S/P partial colectomy ICD Codes: Z90.49 - Acquired absence of other specified parts of digestive tract Plan: He developed small bowel perforation after robotic surgery, s/p emergent ex lap with I&D 4/3 Management per surgery and CCM has ileostomy that is draining Continue supportive care for sepsis and renal failure On tube feed at night supplemental nutrition Needs aggressive PT/OT (3) Sepsis ICD Codes: A41.9 - Sepsis, unspecified organism Plan: No longer on antibiotics, monitor clinically ID is following (4) Hypocalcemia ICD Codes: E83.51 - Hypocalcemia Plan: On liquid vitamin D for deficiency (5) Anemia ICD Codes: D64.9 - Anemia, unspecified Plan: Hb improved, transfused 10/03 No acute bleeding, monitor for recurrence (Helena Malave) Problem List: (1) JOSEF (acute kidney injury) ICD Codes: N17.9 - Acute kidney failure, unspecified Plan: His renal function is normal at baseline Oliguric renal failure, ATN, secondary to sepsis On CRRT from 09/11-09/12; Intermittent HD started 09/13 He is hypercatabolic, requiring 4 hours dialysis treatments MWF 2L UF today he is oliguric, monitor output, await renal recovery; his urine output has imrpoved s/p Permcath placement 10/02 Repeat labs daily Avoid nephrotoxic agents On calcium acetate with tube feeding for hyperphosphatemia D/W patient (2) S/P partial colectomy ICD Codes: Z90.49 - Acquired absence of other specified parts of digestive tract Plan: He developed small bowel perforation after robotic surgery, s/p emergent ex lap with I&D 4/3 Management per surgery and CCM has ileostomy that is draining Continue supportive care for sepsis and renal failure On tube feed at night supplemental nutrition Needs aggressive PT/OT (3) Sepsis ICD Codes: A41.9 - Sepsis, unspecified organism Plan: No longer on antibiotics, monitor clinically ID is following (4) Hypocalcemia ICD Codes: E83.51 - Hypocalcemia Plan: On liquid vitamin D for deficiency (5) Anemia ICD Codes: D64.9 - Anemia, unspecified Plan: Hb improved, transfused 10/03 No acute bleeding, monitor for recurrence Plan patient was seen and examined. Agree with above assessment and plan. Urine output has improved. Continue to monitor for signs of renal recovery from ATN. Avoid nephrotoxic agents. (Nish Zhu MD) Helena Malave Oct 05, 2017 14:00 Nish Zhu MD Oct 05, 2017 15:44
--- NOTE | 2017-10-05 15:40 | HHI.PR ---
Subjective Remarks ALERT NO DISTRESS Objective Vital Signs Date Time Temp Pulse Resp B/P (MAP) Pulse Ox O2 Delivery O2 Flow Rate FiO2 10/05/17 12:19 98.2 111 36 118/63 (81) 94 10/05/17 12:18 109 10/05/17 10:00 107 10/05/17 09:40 96 21 10/05/17 08:00 98.2 97 36 124/62 (82) 94 10/05/17 08:00 97 10/05/17 07:00 96 Room Air 10/05/17 06:27 96 10/05/17 04:12 99 25 116/61 (79) 95 10/05/17 04:09 97 10/05/17 02:25 90 10/05/17 02:25 98.0 90 12 106/56 (73) 93 10/04/17 22:39 98 10/04/17 22:31 93 Room Air 10/04/17 20:00 98.0 97 16 125/64 (84) 93 10/04/17 19:39 94 10/04/17 18:00 104 10/04/17 16:00 97.7 103 26 112/43 (66) 95 10/04/17 16:00 103 I/O 10/04/17 10/04/17 10/04/17 10/05/17 10/05/17 10/05/17 07:00 15:00 23:00 07:00 15:00 23:00 Intake Total 368 ml 420 ml 456 ml Output Total 570 ml 565 ml 1150 ml 2000 ml Balance -202 ml -145 ml -694 ml -2000 ml Intake Oral 240 ml 240 ml Tube Feeding 108 ml 126 ml Other 260 ml 180 ml 90 ml Output Urine Total 100 ml 200 ml 300 ml Stool Total 425 ml 300 ml 800 ml Drainage Total 45 ml 65 ml 50 ml Hemodialysis 2000 ml Result Diagram: 10/04/17 0525 10/05/17 0435 Objective Remarks GENERAL: SKIN: Warm and dry. HEAD: Atraumatic. Normocephalic. EYES: Pupils equal and round. No scleral icterus. No injection or drainage. ENT: No nasal bleeding or discharge. Mucous membranes pink and moist. NECK: Trachea midline. No JVD. CARDIOVASCULAR: Regular rate and rhythm. RESPIRATORY: No accessory muscle use. Clear to auscultation. Breath sounds equal bilaterally. TRACHEOSTOMY IN PLACE GASTROINTESTINAL: Abdomen soft, non-tender, nondistended. Hepatic and splenic margins not palpable. MUSCULOSKELETAL: Extremities without clubbing, cyanosis, or edema. No obvious deformities. NEUROLOGICAL: Awake and alert. No obvious cranial nerve deficits. Motor grossly within normal limits. Five out of 5 muscle strength in the arms and legs. Normal speech. PSYCHIATRIC: Appropriate mood and affect; insight and judgment normal. Assessment and Plan Assessment and Plan RESPIRATORY FAILURE S/P TRACHEOSTOMY S/P ABDOMINAL SURGERY ANEMIA PLAN O2 ANTIBX PULM TOILET INCREASE ACTIVITY REMOVE TRACH WHEN POSSIBLE Ernie Klein MD Oct 05, 2017 15:40
[2017-10-05] MEDS ORDERED: HYDR0.5S3 IV (15:53)
[2017-10-05] MEDS ORDERED: Acetamin-Codeine 120-12 Liq PO (15:53)
[2017-10-05] MEDS ORDERED: Heparin Inj SQ (15:53)
[2017-10-05] MEDS ORDERED: diphenhydrAMINE INJ IM (15:53)
[2017-10-05] MEDS ORDERED: CARV3.125 PO (16:58)
--- NOTE | 2017-10-05 17:04 | HHI.PR ---
Subjective Remarks Patient seen today around 3 PM. Says he is feeling all right. Denies any chest pain or shortness of breath. Objective Vital Signs Date Time Temp Pulse Resp B/P (MAP) Pulse Ox O2 Delivery O2 Flow Rate FiO2 10/05/17 14:00 113 10/05/17 12:19 98.2 111 36 118/63 (81) 94 10/05/17 12:18 109 10/05/17 10:00 107 10/05/17 09:40 96 21 10/05/17 08:00 98.2 97 36 124/62 (82) 94 10/05/17 08:00 97 10/05/17 07:00 96 Room Air 10/05/17 06:27 96 10/05/17 04:12 99 25 116/61 (79) 95 10/05/17 04:09 97 10/05/17 02:25 90 10/05/17 02:25 98.0 90 12 106/56 (73) 93 10/04/17 22:39 98 10/04/17 22:31 93 Room Air 10/04/17 20:00 98.0 97 16 125/64 (84) 93 10/04/17 19:39 94 10/04/17 18:00 104 I/O 10/04/17 10/04/17 10/04/17 10/05/17 10/05/17 10/05/17 07:00 15:00 23:00 07:00 15:00 23:00 Intake Total 368 ml 420 ml 456 ml Output Total 570 ml 565 ml 1150 ml 2000 ml Balance -202 ml -145 ml -694 ml -2000 ml Intake Oral 240 ml 240 ml Tube Feeding 108 ml 126 ml Other 260 ml 180 ml 90 ml Output Urine Total 100 ml 200 ml 300 ml Stool Total 425 ml 300 ml 800 ml Drainage Total 45 ml 65 ml 50 ml Hemodialysis 2000 ml Result Diagram: 10/04/17 0525 10/05/17 0435 Objective Remarks GENERAL: patient sitting up in bed. Appears comfortable.exam unchanged from yesterday SKIN: Warm and dry. HEAD: Normocephalic. EYES: No scleral icterus. No injection or drainage. NECK: Supple, trachea midline. No JVD. tracheostomy midline. No surrounding erythema. CARDIOVASCULAR: Regular rate and rhythm without murmurs, gallops, or rubs. RESPIRATORY: Breath sounds equal bilaterally. No accessory muscle use. GASTROINTESTINAL: Abdomen soft, non-tender, nondistended. MUSCULOSKELETAL: No cyanosis, or edema. BACK: Nontender without obvious deformity. No CVA tenderness. A/P Assessment and Plan // Severe septic shock: Secondary to peritonitis. Resolved. Off pressors. Blood culture from 09/13/17 growing Enterobacter, pansensitive. = Off Levaquin. No signs of infection currently. Continue to monitor //Small bowel enterotomy with leakage of small bowel contents, peritonitis: Status post ex lap, diverting ileostomy. Management per colorectal surgery. Wound VAC in place. 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 Discussed with Dr. Mcclellan at bedside. = Appreciate surgery assistance. //Toxic metabolic encephalopathy: Mental status is significantly improved. Patient is alert and oriented. 4. Acute hypoxemic respiratory failure: Resolved. Appreciate pulmonology recommendations. Tracheostomy being downsized by pulmonology. On oxygen per nasal cannula. // Acute renal failure: Appreciate nephrology recommendations. Continue hemodialysis. //Atrial fibrillation with RVR: Rate control improved. Increased dose of carvedilol. Stopped metoprolol. Off amiodarone drip. = Will continue on Coreg at discharge. //Hyperglycemia: Improved. Monitor Accu-Cheks and cover with sliding scale insulin. //History of gout: Allopurinol on hold. // Hypothyroidism: Continue Synthroid. //DVT prophylaxis: SCDs, MANDY hose, heparin. //GI prophylaxis: Protonix. //FEN: Patient has NG tube and is receiving tube feeds. He has been trying to take small amounts of food and drink by mouth, but is hesitant to do so. //Hypertension: Continue amlodipine, carvedilol. Metoprolol discontinued. Clonidine as needed. //Anemia: Transfuse 1 unit PRBCs today and 1 unit tomorrow during dialysis, spacing out transfusions due to risk of fluid overload. = 10/03. Hemoglobin 8.9 after 2 units of PRBCs. Continue to monitor. = 10/04. Hemoglobin stable at 9.1. Hold off on anticoagulation. = No signs of bleeding. Discharge Planning patient can be transferred to acute care rehabilitation. Joo Monet MD Oct 05, 2017 17:04
--- NOTE | 2017-10-05 17:06 | HHI.DS ---
Discharge Summary Admission Date Sep 07, 2017 at 15:51 Discharge Date: Oct 05, 2017 Admitting Diagnosis (1) Peritonitis ICD Code: K65.9 - Peritonitis, unspecified (2) Paroxysmal atrial fibrillation ICD Code: I48.0 - Paroxysmal atrial fibrillation Status: Acute (3) S/P partial colectomy ICD Code: Z90.49 - Acquired absence of other specified parts of digestive tract Procedures 09/07/17 cystoscopy with bilateral ureteral catheter insertion 09/07/17 exploratory laparoscopy with robotic takedown of splenic flexure, colonoscopy with tattooing and robotic ascending colectomy 09/11/17 exploratory laparotomy with diverting ileostomy 09/11/17 central line placement 09/16/17 hemodialysis catheter placement 09/20/17 emergency intubation for acute hypoxemic respiratory failure 09/20/17 fiberoptic bronchoscopy with therapeutic lavage 09/24/17 therapeutic flexible fiberoptic bronchoscopy 09/24/17 percutaneous tracheostomy tube placement CBC/BMP: 10/04/17 0525 10/05/17 0435 Significant Findings Laboratory Tests Test 10/03/17 05:29 10/03/17 17:05 10/04/17 05:25 10/05/17 04:35 Blood Urea Nitrogen 100 MG/DL (7-18) 50 MG/DL (7-18) 66 MG/DL (7-18) Creatinine 8.68 MG/DL (0.60-1.30) 5.38 MG/DL (0.60-1.30) 6.66 MG/DL (0.60-1.30) Random Glucose 127 MG/DL (74-106) 118 MG/DL (74-106) Albumin 1.8 GM/DL (3.4-5.0) 1.7 GM/DL (3.4-5.0) 1.7 GM/DL (3.4-5.0) Calcium Level 8.1 MG/DL (8.5-10.1) 7.7 MG/DL (8.5-10.1) 8.0 MG/DL (8.5-10.1) Phosphorus Level 8.3 MG/DL (2.5-4.9) 5.6 MG/DL (2.5-4.9) 6.7 MG/DL (2.5-4.9) Chloride Level 97 MEQ/L (98-107) 97 MEQ/L (98-107) 95 MEQ/L (98-107) Anion Gap 17 MEQ/L (5-15) Estimat Glomerular Filtration Rate 6 ML/MIN (>89) 11 ML/MIN (>89) 8 ML/MIN (>89) Red Blood Count 2.87 MIL/MM3 (4.50-5.90) 2.94 MIL/MM3 (4.50-5.90) Hemoglobin 8.9 GM/DL (13.0-17.0) 9.1 GM/DL (13.0-17.0) Hematocrit 24.9 % (39.0-51.0) 26.0 % (39.0-51.0) Platelet Count 118 TH/MM3 (150-450) 128 TH/MM3 (150-450) Monocytes (%) (Auto) 13.6 % (0.0-8.0) 14.6 % (0.0-8.0) Eosinophils (%) (Auto) 6.7 % (0.0-4.0) 6.3 % (0.0-4.0) Lymphocytes # (Auto) 0.9 TH/MM3 (1.0-4.8) Imaging Last Impressions Catheter Placement X-Ray 10/02/17 0800 Signed Impressions: Service Date/Time: Monday, October 02, 2017 13:33 - CONCLUSION: Uncomplicated PermaCath placement as above. Andrés Cannon Jr., MD Abdomen/Pelvis CT 09/25/17 0600 Signed Impressions: Service Date/Time: Monday, September 25, 2017 09:36 - CONCLUSION: 1. Minimal ascites without abscess. 2. Surgical drain left abdomen. 3. Small pleural effusions and left basilar consolidation. Right lung base has improved. 4. Stable hepatic low densities and right renal cyst. 5. Cholelithiasis. Lazarus Penaloza MD Chest X-Ray 09/24/17 0000 Signed Impressions: Service Date/Time: Sunday, September 24, 2017 14:34 - CONCLUSION: Trach tube in good position without pneumothorax with interval improvement in appearance the lungs. Ashu Aranda MD FACR Liver Ultrasound 09/15/17 0000 Signed Impressions: Service Date/Time: Friday, September 15, 2017 07:34 - CONCLUSION: The liver appears mildly enlarged and decreased in echogenicity concerning for edema. The gallbladder is distended with sludge. No discrete stones are visualized. There is mild wall thickening of the gallbladder present. The spleen is overall normal in size and grossly normal in echotexture. Small amount of free fluid seen adjacent to the spleen. Vida Levine MD Abdomen X-Ray 09/13/17 Signed Impressions: Service Date/Time: September 10:52 - CONCLUSION: Gastric tube tip and side-port project over the stomach. Andrés Gardner MD Renal Ultrasound 09/10/17 0000 Signed Impressions: Service Date/Time: Sunday, September 10, 2017 15:17 - CONCLUSION: No evidence of mass or hydronephrosis. Andrés Gardner MD PE at Discharge General: No acute distress. NG tube in place. Tracheostomy. Heart: Regular rate and rhythm. No murmur. Lungs: Clear to auscultation bilaterally. No wheezes, rales, or rhonchi. Breathing is nonlabored. Abdomen: Soft, nondistended. Wound VAC in place on midline incision. Ileostomy. Extremities: No lower extremity edema. Psych: Alert and oriented. Neuro: Normal speech. No focal deficits noted. Hospital Course // Severe septic shock: Secondary to peritonitis. Resolved. Off pressors. Blood culture from 09/13/17 growing Enterobacter, pansensitive. = Off Levaquin. No signs of infection currently. Continue to monitor //Small bowel enterotomy with leakage of small bowel contents, peritonitis: Status post ex lap, diverting ileostomy. Management per colorectal surgery. Wound VAC in place. Pain control with Dilaudid [employer]. Discussed with Dr. Mcclellan at bedside. = Appreciate surgery assistance. //Toxic metabolic encephalopathy: Mental status is significantly improved. Patient is alert and oriented. 4. Acute hypoxemic respiratory failure: Resolved. Appreciate pulmonology recommendations. Tracheostomy being downsized by pulmonology. On oxygen per nasal cannula. // Acute renal failure: Appreciate nephrology recommendations. Continue hemodialysis. //Atrial fibrillation with RVR: Rate control improved. Increased dose of carvedilol. Stopped metoprolol. Off amiodarone drip. = Will continue on Coreg at discharge. //Hyperglycemia: Improved. Monitor Accu-Cheks and cover with sliding scale insulin. //History of gout: Allopurinol on hold. // Hypothyroidism: Continue Synthroid. //DVT prophylaxis: SCDs, MANDY hose, heparin. //GI prophylaxis: Protonix. //FEN: Patient has NG tube and is receiving tube feeds. He has been trying to take small amounts of food and drink by mouth, but is hesitant to do so. //Hypertension: Continue amlodipine, carvedilol. Metoprolol discontinued. Clonidine as needed. //Anemia: Transfuse 1 unit PRBCs today and 1 unit tomorrow during dialysis, spacing out transfusions due to risk of fluid overload. = 10/03. Hemoglobin 8.9 after 2 units of PRBCs. Continue to monitor. = 10/04. Hemoglobin stable at 9.1. Hold off on anticoagulation. = No signs of bleeding. Pt Condition on Discharge: Stable Discharge Disposition: Rehab Inpatient Discharge Time: > 30 minutes Discharge Instructions DIET: Follow Instructions for: Pureed (Wired Jaw) Activities you can perform: See Additionl Instruction Follow up Referrals: Colorectal Surgery - 4 Weeks with Ivory Mcclellan MD New Medications: Carvedilol (Coreg) 3.125 Mg Tab 6.25 MG PO Q12HR for heart for 30 Days, TAB Hydromorphone HCl/Pf (Dilaudid 0.5 mg/0.5 ml Syringe) 0.5 Mg/0.5 Ml Syringe 0.2 MG IV Q3H PRN for PAIN 1-10 for 14 Days, SYRINGE [Acetamin-Codeine 120-12 Liq] () 5 ML ELIX 10 ML PO Q4H PRN for pain 1-10 [diphenhydrAMINE INJ] () 50 MG/ML INJ 50 MG IM HS PRN for INSOMNIA [Heparin Inj] () 86461 UNITS/ML INJ 5000 UNITS SQ Q12H Continued Medications: Amlodipine (Amlodipine) 5 Mg Tab 5 MG PO DAILY for Blood Pressure Management, #30 TAB 0 Refills Levothyroxine (Levothyroxine) 50 Mcg Tab 50 MCG PO DAILY for Thyroid, #30 TAB 0 Refills Discontinued Medications: Allopurinol (Allopurinol) 100 Mg Tab 100 MG PO DAILY for Gout, #30 TAB [address] (Aspirin DR) 81 Mg Tabdr 81 MG PO DAILY, TAB 0 Refills Losartan (Cozaar) 100 Mg Tab 100 MG PO DAILY for Blood Pressure Management, #30 TAB 0 Refills Metoprolol Succinate ER 24 HR (Metoprolol Succinate ER 24 HR) 25 Mg Tab 25 MG PO DAILY, #30 TAB 0 Refills Joo Monet MD Oct 05, 2017 17:06
== END 2017-10-05 18:20 | DRG 3 ==
LOC: HSDC 06:41 → EDSTATUS 08:30 → HSDC 15:50 → HSDI 15:51 → HCPC 18:15 → HSDC 09-10 12:10 → HCPC 09-10 12:10 → HCVI 09-11 02:36 → HCPC 09-11 02:36 → HCVI 09-11 02:46 → HCPC 09-11 02:46 → N03B 09-11 05:20 → HCVI 09-11 05:20 → N03B 09-11 08:02 → HCVI 09-11 08:02 → N03B 09-11 08:03 → HSDC 09-11 08:03 → N03B 09-11 09:40
PROVIDERS: ADMIT Colon & Rectal Surgery; ATTEND Colon & Rectal Surgery
PROC: 07BC4ZX Excision of Pelvis Lymphatic, Percutaneous Endoscopic Approach, Diagnostic (ICD-10-PCS; 2017-09-07)
PROC: 8E0W4CZ Robotic Assisted Procedure of Trunk Region, Percutaneous Endoscopic Approach (ICD-10-PCS; 2017-09-07)
PROC: 0T788DZ Dilation of Bilateral Ureters with Intraluminal Device, Via Natural or Artificial Opening Endoscopic (ICD-10-PCS; 2017-09-07)
PROC: 0T9B70Z Drainage of Bladder with Drainage Device, Via Natural or Artificial Opening (ICD-10-PCS; 2017-09-07)
PROC: 0DJD8ZZ Inspection of Lower Intestinal Tract, Via Natural or Artificial Opening Endoscopic (ICD-10-PCS; 2017-09-07)
PROC: 0DBK4ZZ Excision of Ascending Colon, Percutaneous Endoscopic Approach (ICD-10-PCS; principal; 2017-09-07 08:30)
PROC: 0D1B0Z4 Bypass Ileum to Cutaneous, Open Approach (ICD-10-PCS; 2017-09-11)
PROC: 0DB80ZZ Excision of Small Intestine, Open Approach (ICD-10-PCS; 2017-09-11)
PROC: 05HN33Z Insertion of Infusion Device into Left Internal Jugular Vein, Percutaneous Approach (ICD-10-PCS; 2017-09-11)
PROC: 5A1D70Z Performance of Urinary Filtration, Intermittent, Less than 6 Hours Per Day (ICD-10-PCS; 2017-09-11)
PROC: 5A1955Z Respiratory Ventilation, Greater than 96 Consecutive Hours (ICD-10-PCS; 2017-09-11)
PROC: 6A550Z2 Pheresis of Platelets, Single (ICD-10-PCS; 2017-09-14)
PROC: 05H633Z Insertion of Infusion Device into Left Subclavian Vein, Percutaneous Approach (ICD-10-PCS; 2017-09-16)
PROC: 5A1955Z Respiratory Ventilation, Greater than 96 Consecutive Hours (ICD-10-PCS; 2017-09-20)
PROC: 0B9F8ZX Drainage of Right Lower Lung Lobe, Via Natural or Artificial Opening Endoscopic, Diagnostic (ICD-10-PCS; 2017-09-20)
PROC: 0B9G8ZZ Drainage of Left Upper Lung Lobe, Via Natural or Artificial Opening Endoscopic (ICD-10-PCS; 2017-09-20)
PROC: 0B9J8ZZ Drainage of Left Lower Lung Lobe, Via Natural or Artificial Opening Endoscopic (ICD-10-PCS; 2017-09-20)
PROC: 0BH17EZ Insertion of Endotracheal Airway into Trachea, Via Natural or Artificial Opening (ICD-10-PCS; 2017-09-20)
PROC: 0B998ZZ Drainage of Lingula Bronchus, Via Natural or Artificial Opening Endoscopic (ICD-10-PCS; 2017-09-20)
PROC: 0B938ZZ Drainage of Right Main Bronchus, Via Natural or Artificial Opening Endoscopic (ICD-10-PCS; 2017-09-20)
PROC: 0B978ZZ Drainage of Left Main Bronchus, Via Natural or Artificial Opening Endoscopic (ICD-10-PCS; 2017-09-20)
PROC: 0B113F4 Bypass Trachea to Cutaneous with Tracheostomy Device, Percutaneous Approach (ICD-10-PCS; 2017-09-24)
PROC: 0BJ08ZZ Inspection of Tracheobronchial Tree, Via Natural or Artificial Opening Endoscopic (ICD-10-PCS; 2017-09-24)
PROC: 2W03X6Z Change Pressure Dressing on Abdominal Wall (ICD-10-PCS; 2017-10-01)
PROC: 05HM33Z Insertion of Infusion Device into Right Internal Jugular Vein, Percutaneous Approach (ICD-10-PCS; 2017-10-02)
PROC: 30233N1 Transfusion of Nonautologous Red Blood Cells into Peripheral Vein, Percutaneous Approach (ICD-10-PCS; 2017-10-02)
DX: D12.3 Benign neoplasm of transverse colon (principal); N17.0 Acute kidney failure with tubular necrosis; R65.21 Severe sepsis with septic shock; D65 Disseminated intravascular coagulation [defibrination syndrome]; A41.9 Sepsis, unspecified organism; K65.9 Peritonitis, unspecified; G92 Toxic encephalopathy; K66.8 Other specified disorders of peritoneum; E87.2 Acidosis; K56.7 Ileus, unspecified; K91.71 Accidental puncture and laceration of a digestive system organ or structure during a digestive system procedure; Z99.11 Dependence on respirator [ventilator] status; E87.1 Hypo-osmolality and hyponatremia; L03.311 Cellulitis of abdominal wall; J98.11 Atelectasis; I48.0 Paroxysmal atrial fibrillation; I10 Essential (primary) hypertension; E86.0 Dehydration; Z86.010 Personal history of colon polyps; M10.9 Gout, unspecified; M19.90 Unspecified osteoarthritis, unspecified site; I25.10 Atherosclerotic heart disease of native coronary artery without angina pectoris; E78.5 Hyperlipidemia, unspecified; N40.0 Benign prostatic hyperplasia without lower urinary tract symptoms; I25.2 Old myocardial infarction; Z95.5 Presence of coronary angioplasty implant and graft; Z93.3 Colostomy status; Y95 Nosocomial condition; E83.39 Other disorders of phosphorus metabolism; E83.51 Hypocalcemia; I07.1 Rheumatic tricuspid insufficiency; I27.20 Pulmonary hypertension, unspecified; E87.70 Fluid overload, unspecified; D64.9 Anemia, unspecified; E03.9 Hypothyroidism, unspecified
CPT/HCPCS: 31500; 31624; 36430; 36556; 36558; 36600; 71045; 74018; 74176; 76705; 76775; 76937; 77001; 80048; 80053; 80069; 80074; 80202; 82150; 82247; 82248; 82306; 82570; 82805; 82948; 83010; 83605; 83615; 83690; 83735; 84100; 84155; 84300; 84443; 85007; 85025; 85027; 85044; 85384; 85610; 85730; 86022; 86403; 86850; 86900; 86901; 86920; 87015; 87040; 87070; 87077; 87102; 87116; 87186; 87205; 87206; 88307; 88309; 89051; 90935; 93005; 93306; 94002; 94003; 94150; 94640; 94664; 94799; 96374; 96375; 99152; 99153; A7520; A7521; C1750; C1769; C9113; J0131; J0171; J0282; J0330; J0360; J0610; J0690; J0692; J0712; J1100; J1160; J1170; J1200; J1250; J1325; J1450; J1580; J1644; J1720; J1815; J1885; J1940; J1956; J2185; J2248; J2250; J2270; J2310; J2370; J2405; J2543; J2710; J2765; J3010; J3370; J3475; J3480; J7030; J7040; J7042; J7050; J7060; J7120; J7613; J7614; P9016; P9035; P9045; P9047; Q9963